=== PATIENT | female | born 1965 | race Caucasian/White ===

== ENCOUNTER 2016-11-10 10:37 | Emergency (ER) | payer MEDICAID, OTHER ==
[~2016-11-10] VITALS: Ht 157.5 cm; Wt 93.0 kg
[2016-11-10 10:39] VITALS: Ht 157.5 cm; Wt 93.0 kg
--- NOTE | 2016-11-10 11:14 | ERD ---
ER Documentation Chief Complaint Date/Time DATE: 11/10/16 TIME: 11:12 Chief Complaint epigastric pain radiating to back with nausea x 2 days HPI Patient is a 51-year-old female who presents with gradual onset, intermittent, moderate epigastric pain for 2 days. The patient states that the pain radiates to the bilateral flanks. Pain is exacerbated by eating. Associated with nausea , no vomiting, no diarrhea. No fevers, no dysuria. Patient reports being constipated and taking magnesium citrate. She had a large volume of stool, but no relief of her pain. The patient states that she is currently pain-free. ROS All systems reviewed and are negative except as per history of present illness. Medications Home Meds Active Scripts Ibuprofen* (Motrin*) 400 Mg Tab, 400 MG PO Q6 Y for PAIN, #30 TAB Prov:DESTINI CARLTON MD 11/10/16 Famotidine* (Pepcid*) 20 Mg Tablet, 20 MG PO BID for 14 Days, TAB Prov:DESTINI CARLTON MD 11/10/16 Allergies Allergies: Coded Allergies: No Known Allergy (Verified Allergy, Mild, 03/26/09) PMhx/Soc Past medical history: Hypertension Past surgical history: Tubal ligation Social history: Denies tobacco or alcohol Last menstrual period: One year. FmHx Family History: No coronary disease, No diabetes Physical Exam Vitals Vital Signs Date Time Temp Pulse Resp B/P Pulse Ox O2 Delivery O2 Flow Rate FiO2 11/10/16 10:39 98.2 88 18 162/80 96 Physical Exam Const: Alert, no acute distress Head: Atraumatic Eyes: Normal Conjunctiva, no pallor, no icterus ENT: Normal External Ears, Nose and Mouth. Mucous membranes moist Neck: Full range of motion..~ No meningismus. Resp: Clear to auscultation bilaterally, no wheezes, no rales Cardio: Regular rate and rhythm, no murmurs Abd: Soft, nondistended, mild tenderness in the epigastrium and right upper quadrant, no guarding, no rebound Skin: No petechiae or rashes Back: No midline or flank tenderness Ext: No cyanosis, or edema Neur: Awake and alert, cranial nerves II through XII intact bilaterally, strength and sensation full in 4 extremities. Psych: Normal Mood and Affect Result Diagram: 11/10/16 1135 11/10/16 1135 Results 24 hrs Laboratory Tests Test 11/10/16 11:06 11/10/16 11:35 Urine Color LT. YELLOW Urine Clarity CLEAR Urine pH 8.0 Urine Specific [place] 1.015 Urine Ketones TRACE Urine Nitrite NEGATIVE Urine Bilirubin NEGATIVE Urine Urobilinogen 0.2 E.U./dL Urine Leukocyte Esterase NEGATIVE Urine Microscopic RBC 5-10/HPF Urine Microscopic WBC 0-2/HPF Urine Epithelial Cells OCCASIONAL Urine Amorphous Phosphates MODERATE Urine Bacteria RARE Urine Hemoglobin 2+ Urine Glucose NEGATIVE% Urine Total Protein TRACE Urine Test NEGATIVE White Blood Count 12.310^3/ul Red Blood Count 4.9910^6/ul Hemoglobin 13.8g/dl Hematocrit 43.0% Mean Corpuscular Volume 86.2fl Mean Corpuscular Hemoglobin 27.7pg Mean Corpuscular Hemoglobin Concent 32.1g/dl Red Cell Distribution Width 14.0% Platelet Count 85755^3/UL Mean Platelet Volume 11.1fl Neutrophils % 87.2% Lymphocytes % 7.6% Monocytes % 4.5% Eosinophils % 0.2% Basophils % 0.2% Nucleated Red Blood Cells % 0.0/100WBC Neutrophils # 10.710^3/ul Lymphocytes # 0.910^3/ul Monocytes # 0.610^3/ul Eosinophils # 0.010^3/ul Basophils # 0.010^3/ul Nucleated Red Blood Cells # 0.010^3/ul Prothrombin Time 12.5Sec Prothrombin Time Ratio 1.0 INR International Normalized Ratio 0.93 Sodium Level 140mmol/L Potassium Level 4.0mmol/L Chloride Level 101mmol/L Carbon Dioxide Level 27mmol/L Anion Gap 16 Blood Urea Nitrogen 13mg/dl Creatinine 0.65mg/dl Glucose Level 122mg/dl Calcium Level 9.3mg/dl Total Bilirubin 0.4mg/dl Direct Bilirubin 0.00mg/dl Indirect Bilirubin 0.4mg/dl Aspartate Amino Transf (AST/SGOT) 32IU/L Alanine Aminotransferase (ALT/SGPT) 60IU/L Alkaline Phosphatase 113IU/L Total Protein 7.9g/dl Albumin 4.4g/dl Globulin 3.50g/dl Albumin/Globulin Ratio 1.25 Lipase 40U/L Procedures/MDM EKG read by me: Time 1234, rate 71 Rhythm: Normal sinus [place]: Normal Intervals: Normal ST-T waves: no ischemic changes Ectopy: No Q-waves: No Impression: No evidence of ischemia or arrhythmia MDM: Patient is a 51-year-old female who presents with 2 days of epigastric and right upper quadrant pain. Although she describes pain is radiating to the back , during exam she refers to the epigastrium and right upper quadrant only. She denies fever or vomiting. She has relatively benign labs and serial exams. There is no sign of UTI, cholecystitis or choledocholithiasis, or pancreatitis. There is no lower abdominal tenderness. No signs or symptoms concerning for aortic pathology. Ultrasound does demonstrate severe fatty infiltration of the liver. I suspect that this is the cause of the patient's pain. She may also be experiencing some gastritis. I will prescribe her famotidine and Motrin for her symptoms. I have counseled her on strict return precautions should she experience severe pain, vomiting, or fever. Otherwise, I have advised her to follow-up closely with your PMD if her symptoms not resolve completely. I have also counseled her on dietary changes and weight loss. Departure Diagnosis: Primary Impression: Hepatic steatosis Additional Impression: Abdominal pain Abdominal location: epigastric Qualified Code: R10.13 - Epigastric pain Condition: Stable DESTINI CARLTON MD Nov 10, 2016 11:14
[2016-11-10 11:24] LABS: ADD UMIC YES; URINE BILIRUBIN (Dip) NEGATIVE (NEGATIVE); URINE BLOOD (Dip) 2+ (NEGATIVE); URINE COLOR LT. YELLOW (YELLOW); URINE GLUCOSE (Dip) NEGATIVE (NEGATIVE); URINE KETONES (Dip) TRACE (NEGATIVE); URINE LEUKOCYTE ESTERASE (Dip) NEGATIVE (NEGATIVE); URINE NITRITE (Dip) NEGATIVE (NEGATIVE); URINE TOTAL PROTEIN (Dip) TRACE (NEGATIVE); URINE UROBILINOGEN (Dip) 0.2 E.U./dL (0.1-1.0)
[2016-11-10 11:37] LABS: BACTERIA,URINE RARE
[2016-11-10 11:42] LABS: ADD SCAN DIFF NO
[2016-11-10 11:48] LABS: BASOPHILS % 0.2 % (0.0-2.0); EOSINOPHILS % 0.2 % (0.0-7.0); MEAN PLATELET VOLUME 11.1 fl (7.4-10.4)
[2016-11-10 11:51] LABS: HEMOGLOBIN 13.8 g/dl (12.0-16.0); LYMPHOCYTES # 0.9 10^3/ul (0.8-2.9); LYMPHOCYTES % 7.6 % (15.0-51.0); MEAN CORPUSCULAR HEMOGLOBIN 27.7 pg (29.0-33.0); MEAN CORPUSCULAR HGB CONC 32.1 g/dl (32.0-37.0); MEAN CORPUSCULAR VOLUME 86.2 fl (82.0-101.0); MONOCYTE # 0.6 10^3/ul (0.3-0.9); MONOCYTES % 4.5 % (0.0-11.0); NEUTROPHIL # 10.7 10^3/ul (1.6-7.5); NEUTROPHILS % 87.2 % (39.0-77.0); PLATELET COUNT 263 10^3/UL (140-415); RED BLOOD COUNT 4.99 10^6/ul (4.20-5.40); WHITE BLOOD COUNT 12.3 10^3/ul (4.8-10.8)
[2016-11-10 11:54] LABS: INR 0.93; PROTIME 12.5 Sec (12.2-14.2)
[2016-11-10 11:55] LABS: ALBUMIN 4.4 g/dl (3.3-4.9)
[2016-11-10 11:57] LABS: CREATININE 0.65 mg/dl (0.44-1.00)
[2016-11-10 11:58] LABS: ALBUMIN/GLOBULIN RATIO 1.25; BILIRUBIN,INDIRECT 0.4 mg/dl (0-1.1); BILIRUBIN,TOTAL 0.4 mg/dl (0.2-1.3); CALCIUM 9.3 mg/dl (8.4-10.2); TOTAL PROTEIN 7.9 g/dl (6.1-8.1)
--- NOTE | 2016-11-10 12:20 | RADRPT ---
PROCEDURE: Right Upper Quadrant Ultrasound. CLINICAL INDICATION: Abdominal Pain TECHNIQUE: Multiple real-time images were acquired of the patient's right upper quadrant abdomen a nd retroperitoneum utilizing a high resolution transducer. COMPARISON: None FINDINGS: The liver measures 15.9 cm, and demonstrates diffusely increased echogenicity. The main portal vein is patent with proper directional flow. There is no intrahepatic biliary ductal dilatation. The extr ahepatic common bile duct measures 4 mm. The gallbladder is without stones, wall thickening, or pericholecystic fluid. The visualized pancreas is unremarkable. The right kidney measures 10.8 x 5.6 x 4.4 cm and demonstrates normal echotexture. There is no right renal calculus or hydronephrosis. The visualized abdominal aorta and IVC are grossly unremarkable. IMPRESSION: Severe fatty infiltration of the liver. No cholelithiasis or acute cholecystitis. Normal CBD. RPTAT: EE Physician Juliano Date Time Electronically viewed and signed by Physician Juliano on 11/10/2016 12:19 /
[2016-11-10] MEDS ORDERED: FAMO-18 PO (13:59)
[2016-11-10] MEDS ORDERED: IBUP400T22 PO (13:59)
[2016-11-10 14:06] VITALS: BP 152/68; PULSE 74; RESP 20; TEMP 98.3
== END 2016-11-10 14:07 | disposition home or self-care (01) ==
LOC: E/R 10:37
DX: K76.0 Fatty (change of) liver, not elsewhere classified (principal); I10 Essential (primary) hypertension; R40.2142 Coma scale, eyes open, spontaneous, at arrival to emergency department; R40.2252 Coma scale, best verbal response, oriented, at arrival to emergency department; R40.2362 Coma scale, best motor response, obeys commands, at arrival to emergency department
CPT/HCPCS: 36415; 76705; 80053; 81001; 83690; 84703; 85025; 85610; 93005; Z7502; 81003

== ENCOUNTER 2016-11-18 14:13 | Emergency (ER) | payer OTHER ==
[~2016-11-18] VITALS: Wt 95.0 kg
[~2016-11-18 14:13] MED LIST: FAMO-18 PO; IBUP400T22 PO
[2016-11-18 14:22] VITALS: Wt 95.0 kg
[2016-11-18] MEDS ORDERED: SOD CHLORIDE 0.9% 1,000 ML IV STA (14:49)
[2016-11-18] MEDS ORDERED: ACETAMINOPHEN 500 MG TAB PO STA (14:49)
[2016-11-18 15:39] LABS: ADD SCAN DIFF NO
[2016-11-18 15:42] LABS: ABNORMAL IP MESSAGE 1; HEMATOCRIT 39.7 % (37.0-47.0); HEMOGLOBIN 12.7 g/dl (12.0-16.0); MEAN CORPUSCULAR HEMOGLOBIN 26.5 pg (29.0-33.0); MEAN CORPUSCULAR VOLUME 82.9 fl (82.0-101.0); MEAN PLATELET VOLUME 12.9 fl (7.4-10.4); PLATELET COUNT 124 10^3/UL (140-415); RED BLOOD COUNT 4.79 10^6/ul (4.20-5.40); RED CELL DISTRIBUTION WIDTH 14.5 % (11.5-14.5); WHITE BLOOD COUNT 10.6 10^3/ul (4.8-10.8)
--- NOTE | 2016-11-18 15:44 | RADRPT ---
PROCEDURE: XR Chest. CLINICAL INDICATION: chest pain TECHNIQUE: Single frontal view of the chest was obtained COMPARISON: 03/26/2009 FINDINGS: The heart and mediastinum are within normal limits. The lungs are clear. There is no pleural effusion or pneumothorax. RPTAT: AA IMPRESSION: No acute disease. .Dwight Restrepo MD, MD Date Time Electronically viewed and signed by .Dwight Restrepo MD, on 11/18/2016 15:44 .S/
[2016-11-18 15:46] LABS: ADD UMIC YES; URINE BILIRUBIN (Dip) 1+ (NEGATIVE); URINE BLOOD (Dip) 3+ (NEGATIVE); URINE COLOR YELLOW (YELLOW); URINE GLUCOSE (Dip) NEGATIVE (NEGATIVE); URINE KETONES (Dip) 15 (NEGATIVE); URINE LEUKOCYTE ESTERASE (Dip) NEGATIVE (NEGATIVE); URINE NITRITE (Dip) NEGATIVE (NEGATIVE); URINE TOTAL PROTEIN (Dip) 1+ (NEGATIVE); URINE UROBILINOGEN (Dip) 2.0 E.U./dL (0.1-1.0)
[2016-11-18 16:00] LABS: ALBUMIN 3.4 g/dl (3.3-4.9)
[2016-11-18 16:01] LABS: POTASSIUM 3.1 mmol/L (3.5-5.1)
[2016-11-18 16:03] LABS: ALBUMIN/GLOBULIN RATIO 0.89; BILIRUBIN,INDIRECT 0.5 mg/dl (0-1.1); BILIRUBIN,TOTAL 0.5 mg/dl (0.2-1.3); CREATININE 0.78 mg/dl (0.44-1.00); TOTAL PROTEIN 7.2 g/dl (6.1-8.1)
[2016-11-18 16:04] LABS: CALCIUM 8.9 mg/dl (8.4-10.2)
[2016-11-18 16:08] LABS: ICTOTEST NEGATIVE (NEGATIVE); URINE RBCS >50 /HPF (0)
[2016-11-18 16:09] LABS: BACTERIA,URINE FEW; SQUAMOUS EPITHELIAL CELL,UR FEW
--- NOTE | 2016-11-18 16:10 | RADRPT ---
PROCEDURE: CT Abdomen and pelvis without contrast. CLINICAL INDICATION: Abdominal pain. Fever and chills for 3 weeks. The patient complains of "hot " urine. TECHNIQUE: CT scan of the abdomen and pelvis with contrast was performed on a multidetector high-r esolution CT scan. . Coronal and sagittal reformatted images were obtained from the axial source i mages. Standard CT scan of the abdomen pelvis without contrast protocols were performed. The total exam CTDI equals 23.26 mGy and the total exam DLP equals 1363.76 mGy-cm. One or more of the following dose reduction techniques were used: - Automated exposure control. - Adjustment of the mA and/or kV according to patient size. Use of iterative reconstruction technique. 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 The urinary bladder is contracted but otherwise un remarkable. The ureters are unremarkable. The liver is normal in size without focal hepatic lesions. The gallbladder is partially contracted but otherwise unremarkable. No evidence of biliary ductal dilation. The spleen pancreas and adrenal glands are unremarkable. The stomach, small bowel, large bowel and appendix are unremarkable. There is a 6 cm pedunculated left lateral uterine leiomyoma. The uterus is otherwise unremarkable. No definite adnexal masses. There is no evidence of intra-abdominal free air, free fluid, abscesses or lymphadenopathy. There is atherosclerotic vascular disease but no evidence of aneurysm or periaortic fluid collection s. There is a small fat containing umbilical hernia but no herniated bowel or strangulation. There is degenerative changes lower thoracic and lumbar spine without acute osseous findings are os teoblastic/osteolytic lesions. The lung bases are unremarkable. There is a small anterior pericardial effusion with a maximal depth of 4 mm. IMPRESSION: 1. 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 Unremarkable ureters and urinary bladder. 2. Small fat containing umbilical hernia but no herniated hour strangulation. 3. No evidence of gastrointestinal disease. Specifically no CT evidence of appendicitis or diverti culitis. 4. Small anterior pericardial effusion with a maximal depth of 4 mm. 5. 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 A pelvic ultrasound may be helpful for furthe r evaluation if clinically indicated. RPTAT:AAJJ Osmin Aleman, Physician Date Time Electronically viewed and signed by Osmin Aleman Physician on 11/18/2016 16:09 /
[2016-11-18 16:23] LABS: LYMPHOCYTES # 0.3 10^3/ul (0.8-2.9)
[2016-11-18] MEDS ORDERED: IBUPROFEN 600 MG TAB PO ONE (16:30)
--- NOTE | 2016-11-18 17:08 | RADRPT ---
PROCEDURE: US Abdomen (right upper quadrant). CLINICAL INDICATION: Abnormal liver function tests. TECHNIQUE: Multiple real-time longitudinal and transverse images of the right upper quadrant of th e abdomen were acquired utilizing a curved array transducer. Images were reviewed on a high-resoluti on PACS workstation. COMPARISON: 11/10/2016. FINDINGS: The liver is normal in size with a coarsened echotexture without focal mass or intrahepatic biliary dilatation. There is normal hepatopedal flow within the main portal vein. The gallbladder is well displayed without filling defects or wall thickening. The common bile duct measures 7.4 mm in maxim al dimension. The visualized portions of the pancreas are unremarkable with obscuration of the tail of the pancreas. No free fluid is identified. The right kidney measures 11.2 cm in length. There is normal echogenicity within the right kidney. There is no perinephric fluid collection. No hydronephrosis, mass, or calculus is seen. IMPRESSION: 1. Coarse echotexture in the normal size liver consistent with steatosis with some focal areas of s paring. 2. Borderline dilation of the common bile duct with an otherwise unremarkable gallbladder. RPTAT: [facility] Physician Rosalio Date Time Electronically viewed and signed by Physician Rosalio on 11/18/2016 17:08 PETE/
[2016-11-18] MEDS ORDERED: CEFTRIAXONE 1 GM INJ IVPB ONE (18:00)
[2016-11-18] MEDS ORDERED: METR500T PO (18:06)
[2016-11-18] MEDS ORDERED: CIPR500T4 PO (18:06)
--- NOTE | 2016-11-18 18:13 | ERD ---
ER Documentation Chief Complaint Date/Time DATE: 11/18/16 TIME: 18:09 Chief Complaint FEVER X 2 DAYS HPI Patient is a 51-year-old female who presents complaining of fever for 3 days. She denies cough. Denies sore throat. Denies abdominal pain. Denies any nausea or vomiting but does admit to nonbloody diarrhea as well as dysuria. She also admits to urinary frequency but denies any hematuria. She has been taking Motrin at home. ROS All systems reviewed and are negative except as per history of present illness. Medications Home Meds Active Scripts Metronidazole* (Flagyl*) 500 Mg Tablet, 500 MG PO TID for 7 Days, TAB Prov:NATHANIEL NULL PA-C 11/18/16 Ciprofloxacin Hcl* (Ciprofloxacin Hcl*) 500 Mg Tablet, 500 MG PO BID for 7 Days , TAB Prov:NATHANIEL NULL PA-C 11/18/16 Ibuprofen* (Motrin*) 400 Mg Tab, 400 MG PO Q6 Y for PAIN, #30 TAB Prov:DESTINI CARLTON MD 11/10/16 Famotidine* (Pepcid*) 20 Mg Tablet, 20 MG PO BID for 14 Days, TAB Prov:DESTINI CARLTON MD 11/10/16 Allergies Allergies: Coded Allergies: No Known Allergy (Verified Allergy, Mild, 03/26/09) PMhx/Soc History of Surgery: No Anesthesia Reaction: No Hx Neurological Disorder: No Hx Respiratory Disorders: No Hx Cardiac Disorders: No Hx Psychiatric Problems: No Hx Miscellaneous Medical Probl: No Hx Alcohol Use: No Hx Substance Use: No Hx Tobacco Use: No FmHx Family History: No diabetes Physical Exam Vitals Vital Signs Date Time Temp Pulse Resp B/P Pulse Ox O2 Delivery O2 Flow Rate FiO2 11/18/16 14:22 104.2 122 18 137/88 97 Physical Exam General: well developed, well nourished, alert, nontoxic, no distress Head: normocephalic, atraumatic Neck: Supple, nontender, no lymphadenopathy, no midline tenderness Oropharynx: no tonsilar erythema or edema, uvula midline, no exudates, no kissing tonsils, no drooling Respiratory: Clear to auscaultation bilaterally, speaks in full sentences, no use of accesory muscles or labored breathing, no rales, ronchi, or wheezing Cardiovascular: RRR, No murmurs GI: soft, non tender, non distended, negative murphys sign, negative mcburneys point tenderness, no cva tenderness bilaterally, no rebound or guarding Back: no midline tenderness, no step offs or bony abnormalities, sensation to light touch in tact Result Diagram: 11/18/16 1530 11/18/16 1530 Results 24 hrs Laboratory Tests Test 11/18/16 15:00 11/18/16 15:30 Urine Color YELLOW Urine Clarity HAZY Urine pH 6.0 Urine Specific [place] 1.015 Urine Ketones 15 Urine Nitrite NEGATIVE Urine Bilirubin 1+ Urine Ictotest NEGATIVE Urine Urobilinogen 2.0 E.U./dL Urine Leukocyte Esterase NEGATIVE Urine Microscopic RBC >50/HPF Urine Microscopic WBC 2-5/HPF Urine Squamous Epithelial Cells FEW Urine Bacteria FEW Urine Hemoglobin 3+ Urine Glucose NEGATIVE% Urine Total Protein 1+ White Blood Count 10.610^3/ul Red Blood Count 4.7910^6/ul Hemoglobin 12.7g/dl Hematocrit 39.7% Mean Corpuscular Volume 82.9fl Mean Corpuscular Hemoglobin 26.5pg Mean Corpuscular Hemoglobin Concent 32.0g/dl Red Cell Distribution Width 14.5% Platelet Count 66894^3/UL Mean Platelet Volume 12.9fl Neutrophils % 85.0% Band Neutrophils % 12.0% Lymphocytes % 3.0% Eosinophils % % Neutrophils # 9.010^3/ul Lymphocytes # 0.310^3/ul Eosinophils # 10^3/ul Sodium Level 136mmol/L Potassium Level 3.1mmol/L Chloride Level 95mmol/L Carbon Dioxide Level 26mmol/L Anion Gap 18 Blood Urea Nitrogen 18mg/dl Creatinine 0.78mg/dl Glucose Level 97mg/dl Calcium Level 8.9mg/dl Total Bilirubin 0.5mg/dl Direct Bilirubin 0.00mg/dl Indirect Bilirubin 0.5mg/dl Aspartate Amino Transf (AST/SGOT) 154IU/L Alanine Aminotransferase (ALT/SGPT) 182IU/L Alkaline Phosphatase 290IU/L Total Protein 7.2g/dl Albumin 3.4g/dl Globulin 3.80g/dl Albumin/Globulin Ratio 0.89 Lipase 66U/L Current Medications Medications (Trade) Dose Ordered Sig/Serg Route PRN Reason Start Time Stop Time Status Last Admin Dose Admin Acetaminophen 1000 mg 1,000 mg ONCE STAT PO 11/18/16 14:49 11/18/16 14:54 DC 11/18/16 15:04 Sodium Chloride (NS) 1,000 ml @ 1,000 mls/hr Q1H STAT IV 11/18/16 14:49 11/18/16 15:48 DC 11/18/16 15:04 Ibuprofen (Motrin) 600 mg ONCE ONCE PO 11/18/16 16:30 11/18/16 16:31 DC 11/18/16 16:21 Ceftriaxone Sodium (Rocephin) 1 gm ONCE ONCE IVPB 11/18/16 18:00 11/18/16 18:01 DC Procedures/MDM 51-year-old female is here with a fever of 104.2. She is also tachycardic 122. She complains of nonbloody diarrhea and some dysuria. She denies any other symptoms. She has no chest pain, no shortness of breath, no abdominal pain, no cough, no sore throat, no runny nose. Her labs revealed bandemia. Liver enzymes mildly elevated. Chest x-ray normal. Gallbladder ultrasound showed1. Coarse echotexture in the normal size liver consistent with steatosis with some focal areas of sparing.2. Borderline dilation of the common bile duct with an otherwise unremarkable gallbladder. CT of the abdomen and pelvis showed 1. 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 Unremarkable ureters and urinary bladder.2. Small fat containing umbilical hernia but no herniated hour strangulation.3. No evidence of gastrointestinal disease. Specifically no CT evidence of appendicitis or diverticulitis.4. Small anterior pericardial effusion with a maximal depth of 4 mm.5. 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 A pelvic ultrasound may be helpful for further evaluation if clinically indicated. Despite her fever she is very well-appearing and is nontoxic and non -ill-appearing. I reviewed the case with my supervising physician Dr. Herrera who also examined the patient and reviewed all the labs and imaging studies. We had a long conversation with the patient regarding her findings. Dr. Herrera recommended getting blood cultures and given the patient Rocephin here and discharging the patient with Cipro and Flagyl. Patient was also given strict return precautions and instructed to return in 24 hours for follow-up examination or sooner if her symptoms do not improve. Recommended this patient follow up with her primary care doctor within 48 hours or return to the emergency room for any worsening of symptoms. However this time I do believe there is suitable for outpatient management. I answered all their questions and they agreed with the plan and were discharged home. Departure Diagnosis: Primary Impression: Gastroenteritis Condition: Stable Patient Instructions: Fever Control (Adult) Additional Instructions: Llame al doctor MAANA y carol jarek BRIDGETT PARA DENTRO DE 1-2 DOUGLASS.Dgale a la secretaria que nosotros le instruimos hacer esta bridgett.Avise o llame si [place] condicin se empeora antes de la bridgett. Regresa aqui si peor o no mejor. Regrese a estas instalaciones MAANA para repetirle el examen.Regrese antes si [place] condicin se empeora. NATHANIEL NULL PA-C November 18, 2016 18:13
[2016-11-18 18:52] VITALS: BP 102/59; PULSE 83; RESP 18; TEMP 98.8
== END 2016-11-18 18:53 | disposition home or self-care (01) ==
LOC: FTE 14:13
DX: K52.9 Noninfective gastroenteritis and colitis, unspecified (principal); R07.9 Chest pain, unspecified
CPT/HCPCS: 71010; 74176; 76705; 80053; 81001; 83690; 85025; 87040; 93005; J0696; J7030; Z7610; 36415; 81003; 96374

== ENCOUNTER 2016-12-19 15:44 | Inpatient (IN) | payer OTHER, MEDICAID ==
[~2016-12-19] VITALS: Ht 152.4 cm; Wt 79.0 kg
[~2016-12-19 15:44] MED LIST changes: +CIPR500T4 PO; -FAMO-18 PO; +FAMO-96 PO; +METR500T PO
[2016-12-19 15:46] VITALS: Ht 152.4 cm; Wt 79.0 kg
[2016-12-19] MEDS ORDERED: morphine 4 MG/ML VIAL IV STA (18:44)
[2016-12-19 18:51] LABS: ADD UMIC YES; UR BILIRUBIN (Dip) NEGATIVE (NEGATIVE); UR BLOOD (Dip) 3+ (NEGATIVE); UR CLARITY CLEAR (CLEAR); UR COLOR YELLOW (YELLOW); UR GLUCOSE (Dip) NEGATIVE (NEGATIVE); UR KETONES (Dip) NEGATIVE (NEGATIVE); UR LEUKOCYTE ESTERASE (Dip) NEGATIVE (NEGATIVE); UR NITRITE (Dip) NEGATIVE (NEGATIVE); UR TOTAL PROTEIN (Dip) 1+ (NEGATIVE); UR UROBILINOGEN (Dip) 0.2 E.U./dL (0.1-1.0)
[2016-12-19] MEDS ORDERED: ENOXAPARIN 80 MG/0.8 ML SYG SC SCH (19:00)
--- NOTE | 2016-12-19 19:03 | ERA ---
ER Documentation Chief Complaint Date/Time DATE: 12/19/16 TIME: 18:46 Chief Complaint ap, x 1 mos was called by pmd for abnormal mri? HPI 51-year-old female with a history of hypertension sent by her primary care doctor for admission for findings on CT abdomen and pelvis done yesterday. Patient states that she has had right upper quadrant and right flank pain for about 1 month with no associated nausea or vomiting. She has noted a 25 pound weight loss with night sweats chills. She presented to the ER about 1 month ago for these symptoms and was diagnosed with possible gastroenteritis. Since then her symptoms have not improved. She complains of shortness of breath at rest and with exertion. She also has intermittent right-sided chest pain that started about 2 days ago. Yesterday she had a CT abdomen and pelvis with and without contrast that showed extensive portal vein thromboses and right hepatic vein thromboses, multiple low-density lesions in the liver, pulmonary nodules, and a soft tissue mass in the uterus. ROS All systems reviewed and are negative except as per history of present illness. Medications Home Meds Discontinued Scripts Metronidazole* (Flagyl*) 500 Mg Tablet, 500 MG PO TID for 7 Days, TAB Prov:NATHANIEL NULL PA-C 11/18/16 Ciprofloxacin Hcl* (Ciprofloxacin Hcl*) 500 Mg Tablet, 500 MG PO BID for 7 Days , TAB Prov:NATHANIEL NULL PA-C 11/18/16 Ibuprofen* (Motrin*) 400 Mg Tab, 400 MG PO Q6 Y for PAIN, #30 TAB Prov:DESTINI CARLTON MD 11/10/16 Famotidine* (Pepcid*) 20 Mg Tablet, 20 MG PO BID for 14 Days, TAB Prov:DESTINI CARLTON MD 11/10/16 Allergies Allergies: Coded Allergies: No Known Allergy (Verified , 12/19/16) PMhx/Soc History of Surgery: No Anesthesia Reaction: No Hx Neurological Disorder: No Hx Respiratory Disorders: No Hx Cardiac Disorders: Yes (Hypertension) Hx Psychiatric Problems: No Hx Miscellaneous Medical Probl: Yes (Postmenopausal) Hx Alcohol Use: No Hx Substance Use: No Hx Tobacco Use: No FmHx Family History: diabetes, other (No known cancer in the family) Physical Exam Vitals Vital Signs Date Time Temp Pulse Resp B/P Pulse Ox O2 Delivery O2 Flow Rate FiO2 12/19/16 19:00 98.3 62 16 124/64 99 Room Air 12/19/16 15:46 98.1 60 18 127/60 99 Physical Exam Const: Laying comfortably in bed, no apparent distress Head: Atraumatic Eyes: Normal Conjunctiva ENT: Normal External Ears, Nose and Mouth. Neck: Full range of motion..~ No meningismus. Resp: Clear to auscultation bilaterally Cardio: Regular rate and rhythm, no murmurs Abd: Soft, mild tenderness to palpation in the right upper quadrant without any rebound or guarding, no palpable hematomegaly, non distended. No masses. Normal bowel sounds Skin: No petechiae or rashes Back: No midline or flank tenderness Ext: No cyanosis, or edema Neur: Awake and alert Psych: Normal Mood and Affect Result Diagram: 12/19/16190412/19/161904 Results 24 hrs Laboratory Tests Test 12/19/16 18:27 12/19/16 19:05 Urine Color YELLOW Urine Clarity CLEAR Urine pH 5.5 Urine Specific [place] 1.010 Urine Ketones NEGATIVE Urine Nitrite NEGATIVE Urine Bilirubin NEGATIVE Urine Urobilinogen 0.2 E.U./dL Urine Leukocyte Esterase NEGATIVE Urine Microscopic RBC 2-5/HPF Urine Microscopic WBC 2-5/HPF Urine Squamous Epithelial Cells MANY Urine Bacteria FEW Urine Hemoglobin 3+ Urine Glucose NEGATIVE% Urine Total Protein 1+ White Blood Count 15.910^3/ul Red Blood Count 3.4210^6/ul Hemoglobin 9.0g/dl Hematocrit 27.8% Mean Corpuscular Volume 81.3fl Mean Corpuscular Hemoglobin 26.3pg Mean Corpuscular Hemoglobin Concent 32.4g/dl Red Cell Distribution Width 16.0% Platelet Count 81536^3/UL Mean Platelet Volume 11.1fl Neutrophils % 79.4% Lymphocytes % 10.7% Monocytes % 7.5% Eosinophils % 0.6% Basophils % 0.3% Nucleated Red Blood Cells % 0.0/100WBC Neutrophils # 12.610^3/ul Lymphocytes # 1.710^3/ul Monocytes # 1.210^3/ul Eosinophils # 0.110^3/ul Basophils # 0.110^3/ul Nucleated Red Blood Cells # 0.010^3/ul Prothrombin Time 15.6Sec Prothrombin Time Ratio 1.2 INR International Normalized Ratio 1.23 Activated Partial Thromboplast Time 38.5Sec Sodium Level 133mmol/L Potassium Level 4.4mmol/L Chloride Level 100mmol/L Carbon Dioxide Level 22mmol/L Anion Gap 15 Blood Urea Nitrogen 12mg/dl Creatinine 0.91mg/dl Glucose Level 102mg/dl Calcium Level 9.0mg/dl Total Bilirubin 0.4mg/dl Direct Bilirubin 0.00mg/dl Indirect Bilirubin 0.4mg/dl Aspartate Amino Transf (AST/SGOT) 172IU/L Alanine Aminotransferase (ALT/SGPT) 109IU/L Alkaline Phosphatase 373IU/L Troponin I < 0.012ng/ml Total Protein 7.7g/dl Albumin 4.0g/dl Globulin 3.70g/dl Albumin/Globulin Ratio 1.08 Lipase 81U/L Current Medications Medications (Trade) Dose Ordered Sig/Serg Route PRN Reason Start Time Stop Time Status Last Admin Dose Admin Morphine Sulfate (morphine) 4 mg ONCE STAT IV 12/19/16 18:44 12/19/16 18:46 DC 12/19/16 19:32 Enoxaparin Sodium (Lovenox) 80 mg ONCE SC 12/19/16 19:00 12/19/16 19:33 IV Flush 10 ml 10 ml STK-MED ONCE .ROUTE 12/19/16 19:47 12/19/16 19:48 DC 12/19/16 20:02 Sodium Chloride 100 ml @ ud STK-MED ONCE .ROUTE 12/19/16 19:47 12/19/16 19:48 DC 12/19/16 20:02 Iohexol 100 ml @ ud STK-MED ONCE .ROUTE 12/19/16 19:47 12/19/16 19:48 DC 12/19/16 20:02 Sodium Chloride (NS) 1,000 ml @ 1,000 mls/hr Q1H STAT IV 12/19/16 21:21 12/19/16 22:20 Azithromycin 500 mg 500 mg ONCE STAT PO 12/19/16 21:21 12/19/16 21:22 DC Ceftriaxone Sodium (Rocephin) 50 ml @ 100 mls/hr ONCE STAT IVPB 12/19/16 21:21 12/19/16 21:50 Procedures/MDM EKG: Rate/Rhythm: Sinus tachycardia at 10 7 bpm QRS, ST, T-waves: No changes consistent w/ acute ischemia Impression: No evidence of ischemia or arrhythmia CTA chest: IMPRESSION: 1. There is no evidence of pulmonary embolization. The other cardiovascular structures are unremarkable except for the presence of a small anterior pericardial effusion. 2. A 1.2 cm pleural based noncalcified nodule is seen at the lateral left lower lobe. This could be inflammatory or neoplastic. 3. Focal alveolar infiltrate seen within the superior segment of the right lower lobe laterally and a second focal nodular infiltrate is seen more inferiorly within the right lower lobe adjacent to the major fissure measuring 1.8 cm in diameter. No effusion or adenopathy is evident. 4. Fat containing Bochdalek hernia seen at the posterior medial left lung base. 5. Mild degenerative spine changes are noted. Chest x-ray: IMPRESSION: 1. Small focal infiltrate in the inferior right upper lobe with a patchy infiltrate in the right lower lobe. 2. Otherwise, no significant abnormalities are identified. Labs: CBC shows leukocytosis, anemia, thrombocytosis CMP shows elevated liver enzymes MDM Patient is presenting with weight loss, night sweats, and abdominal pain with CT showing multiple pulmonary nodules, with possible infiltrates, and hepatic and portal vein thromboses. She is hemodynamically stable and afebrile. I suspect likely occult cancer with metastatic disease. Given her leukocytosis and infiltrates on x-ray, treatment for community-acquired pneumonia was started. There is no evidence of sepsis. CTPA was done and did not show pulmonary embolism. I have a low suspicion for ACS. Lovenox 1 mg/kg was given subcu. Patient is hemodynamically stable but will need admission for further anticoagulation and further workup for malignancy. Critical Care Time: 35 minutes Treatments/Evaluations: Close monitoring and treatment of unstable vital signs, cardiorespiratory, and neurologic status, while maintaining tight balance of fluid, respiratory, and cardiac interventions. This time includes discussing the case with the patient and the patients family. This time does not include all procedures stated elsewhere in this record. This time also includes reviewing old records, labs and radiological studies. This time includes examining and re-examining the patient. Additionally, this time also includes arranging care with admitting and consulting physicians. Accepting Care Team: Current data and ongoing care discussed. Time: Time of admission Primary Provider: Yoly Consulting: none Outstanding Data: none Departure Diagnosis: Primary Impression: Hepatic vein thrombosis Additional Impressions: Portal vein thrombosis Transaminitis Anemia Qualified Code: D64.89 - Anemia due to other cause, not classified Leukocytosis Qualified Code: D72.829 - Leukocytosis, unspecified type Pneumonia, community acquired Pulmonary nodules Uterine mass Condition: Serious BREE TREJO MD Dec 19, 2016 19:03
[2016-12-19 19:06] LABS: UR BACTERIA FEW; UR SQUAMOUS EPITHELIAL CELL MANY
[2016-12-19 19:11] LABS: ADD SCAN DIFF NO
[2016-12-19 19:18] LABS: BASOPHIL # 0.1 10^3/ul (0.0-0.1); BASOPHILS % 0.3 % (0.0-2.0); EOSINOPHILS # 0.1 10^3/ul (0.0-0.5); EOSINOPHILS % 0.6 % (0.0-7.0); HEMATOCRIT 27.8 % (37.0-47.0); LYMPHOCYTES # 1.7 10^3/ul (0.8-2.9); LYMPHOCYTES % 10.7 % (15.0-51.0); MEAN CORPUSCULAR HEMOGLOBIN 26.3 pg (29.0-33.0); MEAN CORPUSCULAR HGB CONC 32.4 g/dl (32.0-37.0); MEAN CORPUSCULAR VOLUME 81.3 fl (82.0-101.0); MEAN PLATELET VOLUME 11.1 fl (7.4-10.4); MONOCYTE # 1.2 10^3/ul (0.3-0.9); MONOCYTES % 7.5 % (0.0-11.0); NEUTROPHIL # 12.6 10^3/ul (1.6-7.5); NEUTROPHILS % 79.4 % (39.0-77.0); PLATELET COUNT 458 10^3/UL (140-415); RED BLOOD COUNT 3.42 10^6/ul (4.20-5.40); WHITE BLOOD COUNT 15.9 10^3/ul (4.8-10.8)
[2016-12-19 19:33] LABS: INR 1.23; PROTIME 15.6 Sec (12.2-14.2); PT RATIO 1.2
[2016-12-19 19:34] LABS: PARTIAL THROMBOPLASTIN TIME 38.5 Sec (25.0-35.0)
[2016-12-19 19:36] LABS: ALANINE AMINOTRANSFERASE 109 IU/L (13-69); ALBUMIN/GLOBULIN RATIO 1.08; ALKALINE PHOSPHATASE 373 IU/L (42-121); ANION GAP 15 (8-16); ASPARTATE AMINO TRANSFERASE 172 IU/L (15-46); BILIRUBIN,INDIRECT 0.4 mg/dl (0-1.1); BILIRUBIN,TOTAL 0.4 mg/dl (0.2-1.3); BLOOD UREA NITROGEN 12 mg/dl (7-20); CARBON DIOXIDE 22 mmol/L (21-31); CHLORIDE 100 mmol/L (97-110); CREATININE 0.91 mg/dl (0.44-1.00); GLUCOSE 102 mg/dl (70-220); POTASSIUM 4.4 mmol/L (3.5-5.1); SODIUM 133 mmol/L (135-144); TOTAL PROTEIN 7.7 g/dl (6.1-8.1)
[2016-12-19 19:47] LABS: TROPONIN-I < 0.012 ng/ml (0.00-0.12)
[2016-12-19] MEDS ORDERED: IOHEXOL 100 ML ONE (19:47)
[2016-12-19] MEDS ORDERED: SOD CHLORIDE 0.9% 100 ML ONE (19:47)
--- NOTE | 2016-12-19 20:08 | RADRPT ---
PROCEDURE: XR Chest. CLINICAL INDICATION: Abdominal Pain TECHNIQUE: Single frontal view of the chest was obtained COMPARISON: None FINDINGS: The heart and mediastinum are within normal limits. There is a small focal infiltrate in the inferior aspect of the right upper lobe. A patchy infiltra te is also seen in the right lower lobe. The lungs are otherwise clear. There is no pleural effusion or pneumothorax. The bones and soft tissue show no acute change. IMPRESSION: 1. Small focal infiltrate in the inferior right upper lobe with a patchy infiltrate in the right lo wer lobe. 2. Otherwise, no significant abnormalities are identified. RPTAT:AAJJ Physician Carrie Date Time Electronically viewed and signed by Physician Carrie on 12/19/2016 20:08 FARIBA/
--- NOTE | 2016-12-19 20:57 | RADRPT ---
PROCEDURE: CT Pulmonary Angiogram CLINICAL INDICATION: Chest pain rule out PE TECHNIQUE: Volumetric acquisition of the thorax was performed following the intravenous administra tion of contrast with the bolus of contrast time to maximize pulmonary artery opacification. One or more of the following dose reduction techniques were used: - Automated exposure control. - Adjustment of the mA and/or kV according to patient size. - Use of iterative reconstruction technique. Radiation Dose: CTDI = 60.67 mGy; DLP = 674.28 mGy-cm. COMPARISON: None. FINDINGS: Pulmonary Arteries: There is no intrinsic filling defect seen within the pulmonary arteries to sugge st pulmonary embolization. Other cardiovascular structures: The heart is normal in size. There is a small pericardial effusion primarily seen anteriorly. The aorta is intact and normal in caliber and the brachial cephalic ves sels appear patent. Lung alvarez: There is a focus of alveolar infiltrate within the superior segment of the right lower lobe laterally. There is a small focus of nodular infiltrate seen more inferiorly within the right lower lobe adjacent to the major fissure measuring approximately 1.8 cm in diameter. There is a 1.2 cm pleural based nodule within the lateral left lower lobe. The pleural spaces: No effusion or pneumothorax is identified. Lymph nodes: No pathologically enlarged nodes are evident. Thyroid: Unremarkable. Superior abdominal structures: No significant abnormality is evident. Osseous structures: Mild degenerative endplate changes are seen to the spine. Soft tissues: There is a fat containing Bochdalek hernia at the posterior medial left lung base. IMPRESSION: 1. There is no evidence of pulmonary embolization. The other cardiovascular structures are unremar kable except for the presence of a small anterior pericardial effusion. 2. A 1.2 cm pleural based noncalcified nodule is seen at the lateral left lower lobe. This could be inflammatory or neoplastic. 3. Focal alveolar infiltrate seen within the superior segment of the right lower lobe laterally and a second focal nodular infiltrate is seen more inferiorly within the right lower lobe adjacent to t he major fissure measuring 1.8 cm in diameter. No effusion or adenopathy is evident. 4. Fat containing Bochdalek hernia seen at the posterior medial left lung base. 5. Mild degenerative spine changes are noted. Findings of left posterolateral pleural based 1.2 cm nodule in left lower lobe inflammatory versus n eoplastic were telephoned by Magdaleno Ridley MD to Dr. Comer on 12/19/2016 at 2050 hours. Candy Ridley Physician Date Time Electronically viewed and signed by Candy Ridley Physician on 12/19/2016 20:57 /
[2016-12-19] MEDS ORDERED: SOD CHLORIDE 0.9% 1,000 ML IV STA (21:21)
[2016-12-19] MEDS ORDERED: CEFTRIAXONE 1 GM/50 ML (PMX) 50 ML IVPB STA (21:21)
[2016-12-19] MEDS ORDERED: AZITHROMYCIN 250 MG TAB PO STA (21:21)
[2016-12-19] MEDS ORDERED: ONDANSETRON 4 MG INJ IV PRN (22:00)
[2016-12-20] MEDS: ACETAMINOPHEN 325 MG TAB PO PRN ×2 (03:12→13:46)
[2016-12-20] MEDS ORDERED: SOD CHLORIDE 0.9% 500 ML IV ONE (03:30)
[2016-12-20] MEDS: DEXTROSE 5%-0.45% NACL 1,000 ML IV SCH ×3 (05:07→23:37)
[2016-12-20] MEDS ORDERED: NACL 0.9% 3 ML SYG IV SCH (07:30)
[2016-12-20] MEDS ORDERED: ALBUTEROL/IPRATROPIUM (NEB) 3 ML AMP HHN PRN (07:30)
[2016-12-20] MEDS: ENOXAPARIN 80 MG/0.8 ML SYG SC SCH ×2 (08:19→21:23)
[2016-12-20 10:15] LABS: ADD SCAN DIFF NO
[2016-12-20 10:38] LABS: BASOPHILS % 0.3 % (0.0-2.0); EOSINOPHILS # 0.1 10^3/ul (0.0-0.5); EOSINOPHILS % 0.4 % (0.0-7.0); HEMATOCRIT 27.1 % (37.0-47.0); HEMOGLOBIN 8.5 g/dl (12.0-16.0); LYMPHOCYTES # 1.2 10^3/ul (0.8-2.9); MEAN CORPUSCULAR HEMOGLOBIN 25.8 pg (29.0-33.0); MEAN CORPUSCULAR HGB CONC 31.4 g/dl (32.0-37.0); MEAN CORPUSCULAR VOLUME 82.1 fl (82.0-101.0); MEAN PLATELET VOLUME 11.2 fl (7.4-10.4); MONOCYTE # 0.7 10^3/ul (0.3-0.9); MONOCYTES % 4.7 % (0.0-11.0); NEUTROPHIL # 13.3 10^3/ul (1.6-7.5); PLATELET COUNT 426 10^3/UL (140-415); RED CELL DISTRIBUTION WIDTH 16.5 % (11.5-14.5); WHITE BLOOD COUNT 15.6 10^3/ul (4.8-10.8)
[2016-12-20 10:46] LABS: ALBUMIN 3.3 g/dl (3.3-4.9); ALBUMIN/GLOBULIN RATIO 0.86; BILIRUBIN,INDIRECT 0.4 mg/dl (0-1.1); BILIRUBIN,TOTAL 0.4 mg/dl (0.2-1.3); CALCIUM 8.6 mg/dl (8.4-10.2); CREATININE 0.67 mg/dl (0.44-1.00); MAGNESIUM 1.9 mg/dl (1.7-2.5); PHOSPHORUS 3.6 mg/dl (2.5-4.9); POTASSIUM 3.8 mmol/L (3.5-5.1); TOTAL PROTEIN 7.1 g/dl (6.1-8.1)
[2016-12-20 11:50] LABS: IRON 28 ug/dl (35-150)
[2016-12-20 11:59] LABS: TOTAL IRON BINDING CAPACITY 218 ug/dl (241-421)
[2016-12-20 12:23] LABS: CARCINOEMBRYONIC ANTIGEN 1.5 ng/ml (0.0-5.0)
--- NOTE | 2016-12-20 12:24 | CONS ---
DATE OF ADMISSION: 12/19/2016 DATE OF CONSULTATION: 12/20/2016 TYPE OF CONSULTATION: Medical Oncology REQUESTING PHYSICIAN: Ruddy Frederick MD REASON FOR CONSULTATION: Probable metastatic carcinoma. Dear Dr. Frederick: Thank you very much for asking me to see this very interesting and pleasant patient in oncologic con sultation. HISTORY OF PRESENT ILLNESS: As you know, Ms. Burks is a 51-year-old postmenopausal female who is presently in the emergency room at [facility] awaiting admission to the hospital. The patient has been experiencing abdominal pain now for over 1 month. The pain is mostly in the ri ght upper quadrant. The patient has had a recent CT scan of the abdomen and pelvis with and without contrast. This was done on 12/18/2016 at [facility]. This revealed exte nsive portal vein thrombosis and right hepatic vein thrombosis. There were also "numerous low-densi ty lesions scattered throughout the liver." It was felt that these might represent multiple hepatic abscesses. Liver metastases could not be excluded. Interestingly, there was no mesenteric or retr operitoneal lymphadenopathy. There was a soft tissue mass noted in the left aspect of the uterus. There were ill-defined pulmonary nodules at the lower lobes. As noted, the patient has been experiencing pain for over 1 month. The patient has had at least 2 v isits to the [facility] emergency room. The first was on 11/10/2016 and the secon d on 11/18/2016. The patient's abdominal pain has been increasing. As noted, it is mostly in the right upper quadran t. It is worsened with deep inspiration. It does not radiate to shoulder or to the back. The brooklynn ent has had some "indigestion" but no nausea or vomiting. She has not noticed any change in bowel h abits. There has been no melena or hematochezia. The patient has had fevers and night sweats. She is unable to tell me how high the temperature has been. The patient does state that she has lost 25 pounds in the past month. As noted, the patient has not had any melena or hematochezia. She has not had hematemesis. She has not had any spotting, vaginal bleeding or discharge. As mentioned, the patient was seen in the emergency room here on 11/10/2016. At that time, an ultra sound of gallbladder showed fatty infiltration of the liver. CBC was done which was normal. Hemogl obin at that time was 13.8 with an MCV of 86. Comprehensive metabolic panel was normal including al l liver functions. Total protein at that time was 7.9 and albumin was 4.4. The patient was seen again in the emergency room on 11/18/2016. At that time, the patient had a tem perature of 104.2 on presentation to the emergency room. Again, chemistry panel was done and this t anmol the patient had an AST of 154, ALT of 182, alkaline phosphatase of 290, total protein of 7.2, al bumin was 3.4, total bilirubin 0.5, and direct was 0. White count at that time 10,600 with 12% band s. Hemoglobin was 12.7, hematocrit 39.7, with MCV of 82.9, and platelet count 124,000. At that jamison e, another ultrasound of the gallbladder was done. This again showed fatty liver. There was border line dilatation of the common bile duct. A CT scan of the abdomen and pelvis was also done. This s howed a horseshoe kidney. The liver was felt to be normal in size without lesions. The spleen, borja creas and adrenal glands were normal. There was a 6 cm pedunculated lesion in the left lateral uter us. There were no adnexal masses. This was called a leiomyoma, although I am not clear how this di agnosis could be made on x-ray alone. The lung bases were felt to be unremarkable. There was a sma ll pericardial effusion noted. The patient now on admission to the emergency room has a white count of 15,600 with an absolute neut rophil count of 13,300, hemoglobin is now 8.5, hematocrit 27.1, MCV 82, MCH 25.8, MCHC 31.4, RDW 16. 5, and platelet count 426,000. Comprehensive metabolic panel reveals an AST of 190, ALT of 119, alk kim phosphatase of 338, total bilirubin 0.4 with a direct of 0. Albumin is 3.3, total protein 7.1 , lipase is 81. A CT angiogram of the chest was done. This did not show any evidence of pulmonary emboli. There wa s a focus of alveolar infiltrate in the superior segment of the right lower lobe laterally. A small focus of nodular infiltrate seen inferiorly with the right lower lobe adjacent to the major fissure measuring 1.8 cm and a 1.2 cm pleural-based nodule within the lateral left lower lobe. There was n o effusion or pneumothorax identified. No mention of a pericardial effusion. There were no osseous lesions either. During her stay in the emergency room, the patient's temperature has gone as high as 103 with a puls e rate of 120, blood pressure has remained normal. PAST MEDICAL HISTORY: The patient's past history is unremarkable other than those things mentioned above. She does have a history of hypertension for which she has been taking amlodipine. The other medications at home have included omeprazole, metronidazole, ciprofloxacin, ibuprofen. These have since been discontinued. ALLERGIES: THE PATIENT HAS NO KNOWN ALLERGIES. 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 She has had no postmenopausal bleeding. The patient is 4, para 4, AB 0. She has not take n any hormone replacement therapy. The patient states she had a mammogram last in June and this was normal. She has never required a breast biopsy. She has not had colonoscopy. SOCIAL HISTORY: The patient was born in [place]. She has been in the [place] since 16 years o f age. 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 S he has not knowingly been exposed to industrial toxins or ionizing radiation. She does not smoke or use other tobacco products. No alcohol. FAMILY HISTORY: Remarkable in that her father has had diabetes. Both parents are living. She has 3 sisters and 2 brothers who are all in good health. Four children who are in good health. PHYSICAL EXAMINATION GENERAL: At this time reveals a well-developed, obese female who seems to be in some distress. VITAL SIGNS: Temperature 98.2 at this time. Pulse 120 per minute, respirations 22, blood pressure 113/67, and pulse oximetry is 100% on room air. SKIN: No ecchymosis, no petechiae or rashes. HEENT: Normocephalic. No evidence of trauma. The pupils are equal, round, react to light and acco mmodation. Sclerae nonicteric. Oral mucosa is moist without lesions. Tongue is well papillated. There is no gingival hyperplasia, no hypertrophy of Waldeyer's ring, no mucosal telangiectasias. NECK: Supple, no jugular venous distention or thyroid enlargement. No carotid bruits. CHEST: Clear to auscultation and percussion. No rhonchi, wheezes, rales or rubs. There is no pain on percussion of the spine, sternum, clavicles or ribs. BREASTS: Symmetrical. No masses, skin retraction, or nipple inversion. HEART: Sinus tachycardia. No S3, S4 or murmurs. No rubs. ABDOMEN: Obese. There is tenderness on palpation of the right upper quadrant and epigastrium. No distinct mass can be felt. There is no ascites. Bowel sounds are active. EXTREMITIES: Good range of motion, no clubbing, edema or cyanosis. No palpable cords or Homans sig n. NEUROLOGIC: Normal. DISCUSSION: This patient has a 1 month history of abdominal pain. This has been associated with a 25-pound weight loss as well as fevers and night sweats. The patient has had now 3 visits to the emergency room. During that time, the patient has gone from a normal CBC to a leukocytosis. Her hemoglobin has also dropped in 6 weeks from 13.8 to 8.8. This was without any evidence of gastrointestinal blood loss or hemolysis. Liver functions have become abnormal as well. A CT scan of the abdomen and pelvis done 1 month ago demonstrated no hepatic abnormalities. There was a 6 cm pedunculated lesion extending from the left lateral aspect of the uterus. That CT scan was done without contrast. The CT scan done 2 days mark or to admission as an outpatient; however, now shows extensive portal vein thrombosis as well as pos sible hepatic vein thrombosis. There are also numerous low-attenuation lesions scattered throughout the liver. It was unclear whether these represent metastases or multiple hepatic abscesses. As no ryley, the patient has had spiking temperatures and leukocytosis. Certainly one must be concerned about a metastatic malignancy, but also cannot rule out an infection . At this time, I have requested iron studies to include iron, iron-binding capacity, and a ferritin. We will also obtain a CEA, CA 27-29 and CA 125. We will also obtain immunofixation as well as yamil titative immunoglobulins. We will request an ultrasound of the liver as well. Ultimately, it will likely be necessary to obtain a biopsy of the liver if this does appear to be a malignancy. It is somewhat unusual in that there is no evidence of retroperitoneal or mesenteric lymphadenopathy , nor has there been any evidence of hilar or mediastinal adenopathy on CT scans. I will review the peripheral slide as well. Once again, thank you very much for the opportunity of participating in the medical care of this lamont y interesting and pleasant patient. I will be happy to follow this patient with you and assist in h er oncologic evaluation and follow up as necessary. Dictated By: ECTOR GHOSH MD SR/DAR Conf#: [id number] DID#: [id number]
--- NOTE | 2016-12-20 12:53 | HP ---
Date/Time of Note Date/Time of Note DATE: 12/20/16 TIME: 12:52 Assessment/Plan VTE Prophylaxis VTE Prophylaxis Intervention: SCD's Assessment/Plan Assessment/Plan IMPRESSION 1. Likely metastatic cancer 2. Portal and Hepatic vein thrombosis 3. Abd bloating and RUQ pain: likely 2/2 above, liver pathology 4. Leukocytosis 5 .Mild Hyponatremia 6. Hx of HTN: BP within goal PLAN Anti-coagulation, treatment dose Oncology consult pain mgmt infectious w/u correct electrolytes as needed HPI/ROS Admit Date/Time Admit Date/Time Hx of Present Illness This is a 51-year-old female with a history of hypertension sent by her primary care doctor for admission for findings on CT abdomen and pelvis done yesterday. Patient states that she has been experiencing abd bloating and right upper quadrant and right flank pain for about 1 month with no associated nausea or vomiting. She has noted a 25 pound weight loss with night sweats and chills. She presented to the ER about 1 month ago for these symptoms and was diagnosed with possible gastroenteritis. Since then her symptoms have not improved. She complains of shortness of breath at rest and with exertion. She also has intermittent right-sided chest pain that started about 2 days ago. Yesterday she had a CT abdomen and pelvis with and without contrast that showed extensive portal vein thromboses and right hepatic vein thromboses, multiple low-density lesions in the liver, pulmonary nodules, and a soft tissue mass in the uterus. . PMH/Family/Social Social History Smoking Status: Never smoker Exam/Review of Systems Vital Signs Vitals Vital Signs Date Time Temp Pulse Resp B/P Pulse Ox O2 Delivery O2 Flow Rate FiO2 12/20/16 08:41 120 22 113/67 100 Room Air 12/20/16 07:35 98.2 Exam Constitutional: alert, oriented, well developed Head: atraumatic, normocephalic Neck: non-tender, supple Respiratory: clear to auscultation Cardiovascular: nl pulses, regular rate and rhythm Gastrointestinal: soft, tender Extremities: normal pulses Labs Result Diagram: 12/20/16 1000 12/20/16 1000 Medications Medications Current Medications Dextrose/Sodium Chloride (D5-1/2ns) 1,000 ml @ 100 mls/hr Q10H IV Last administered on 12/20/16t 05:07; Admin Dose 100 MLS/HR; Start 12/20/16 at 03:30 Ondansetron HCl (Zofran Inj) 4 mg Q6H PRN IV NAUSEA AND/OR VOMITING; Start 12/20 at 07:30 Acetaminophen (Tylenol Tab) 650 mg Q6H PRN PO PAIN LEVEL 1-3 OR FEVER; Start at 07:30 Morphine Sulfate (morphine) 4 mg Q4H PRN IV SEVERE PAIN LEVEL 7-10; Start at 07:30 Enoxaparin Sodium (Lovenox) 80 mg Q12 SC Last administered on 12/20/16 08:19; Admin Dose 80 MG; Start 12/20/16 at 09:00 DOUGIE MARTINEZ MD Dec 20, 2016 12:53
[2016-12-20 13:40] VITALS: TEMP 100.3
[2016-12-20 15:21] VITALS: BP 114/55; PULSE 105; RESP 18
--- NOTE | 2016-12-20 15:31 | CONS ---
DATE OF ADMISSION: 12/19/2016 DATE OF CONSULTATION: PULMONARY CONSULTATION REASON FOR CONSULTATION: Abnormal CT. Thank you, Dr. Kinney, for this consultation. HISTORY OF PRESENT ILLNESS: This is an unfortunate 51-year-old lady with a 1-month history of abdom inal pain, predominantly in the right upper quadrant. Recent CT of the abdomen was performed and de monstrated extensive portal vein thrombosis and right hepatic vein thrombosis, multiple lesions in t he liver and possibly in the lungs also. She had worsening pain over the past 24 hours resulting in presentation to the emergency room. No nausea, no vomiting. She did have symptoms of gastroesopha geal reflux disease. In addition to this, the patient has had significant weight loss in the last 2 months and fevers and chills over the past 24 to 48 hours. On admission, the patient was found to be febrile to 103, mildly tachycardic with a blood pressure of 138/68. Initial studies showed leuko cytosis of 15.6 and infiltrate in the right lower lobe consistent with pneumonia. PAST MEDICAL HISTORY: Includes hypertension, gastroesophageal reflux disease, history of UTI. MEDICATIONS: Per chart. ALLERGIES: NONE. SOCIAL HISTORY: Nonsmoker, no alcohol, no history of drug use. FAMILY HISTORY: Noncontributory. SYSTEMS REVIEW: A 12-point review of systems negative other than that mentioned above. PHYSICAL EXAMINATION: GENERAL: Well-nourished, well-developed lady, appears comfortable at rest, no acute distress. VITAL SIGNS: Currently temperature 100.3, pulse is 100, blood pressure 138/68, O2 saturation 96% on room air. NECK: Supple. No JVD or lymphadenopathy. CARDIAC: S1, S2, no added sounds or murmurs. CHEST: Diminished air entry both lung bases. ABDOMEN: Mildly distended, soft. EXTREMITIES: No cyanosis, clubbing, or edema. NEUROLOGIC: Generalized weakness. LABORATORY DATA: White count 15.6, hemoglobin 8.5, platelets 426. Chemistry: BUN 8, creatinine 0. 67, AST 190, ALT 119, alkaline phosphatase 338. CA-125 was 40. Quantitative immunoglobulins were w ithin normal limits. DIAGNOSTIC DATA: CT chest was performed with no evidence of pulmonary emboli. She has a 1.2 cm ple ural based noncalcified nodule, left lower lobe, focal infiltrate superior segment of the right lowe r lobe. 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 Differential bolton s include hepatic abscesses, given the patient's persistent fevers. The patient to be placed on: 1. Intravenous antibiotics. 2. Pain control. 3. DVT and GI prophylaxis. 4. Biopsy of liver when the patient is more stable. 5. Hold off for a lung biopsy at present. Dictated By: JASON GARCIA/DAR Conf#: [id number] DID#: [id number]
--- NOTE | 2016-12-20 15:42 | PN ---
DATE: 12/20/2016 This is a medical oncology progress note. The patient's peripheral blood smear has been reviewed. Red blood cell morphology is relatively normal. There is some macrocytosis noted but no hypochromas ia. There are no fragmented red blood cells. No spherocytes. There are some target cells noted. White blood cells are increased in number. The granulocytes appear relatively normal. There is mi ld to toxic granulation, but no Dohle bodies, no cytoplasmic vacuolization. There are no immature n eutrophils, no hypersegmented polys and no nucleated red blood cells. Lymphocytes are normal in num mellisa and appearance. There are no atypical or reactive lymphocytes. The platelets are increased in number and there is some spontaneous platelet clumping, but no unusual platelet forms seen. Blood cultures have been obtained. Other studies are pending as noted in my original consultation. Dictated By: ECTOR GHOSH MD, SR/NTS Conf#: [id number] DID#: [id number]
--- NOTE | 2016-12-20 15:53 | CONS ---
Date/Time of Note Date/Time of Note DATE: 12/20/16 TIME: 15:48 Assessment/Plan Assessment/Plan Chief Complaint/Hosp Course Mrs. 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 Her portal vein thrombosis appears to be acute in nature as this was not present on the November abdominal CT scan. She also has incidental finding of a non-symptomatic left posterior Bochdalek hernia. Her Anorexia and abdominal pain is likely related to the portal vein thrombosis. 1. Given the fact that her current presentation of hepatic and portal vein thrombosis is acute in nature, associated with leukocytosis and fevers, abscess in the liver cannot be ruled out. I recommend a dedicated liver protocol MRI with Eovist to better evaluate the liver and the extent of underlying disease process. Her CT scans are not good enough to evaluate the liver as it stands. Her hypercoagulable state can be 2/2 an underlying neoplastic process as yet to be determined, however, an underlying inflammatory process can also lead to this. She has never had an upper or lower endoscopy and thus this needs to be addressed to evaluate for and rule out possible metastatic disease. My review of the CT Scans did not raise any concerns, however. I don't believe that there is a relation between the liver lesions and the left adnexal mass at this time without presence of extensive peritoneal disease. 2. I agree with tumor markers evaluation as per Oncology recommendation. 3. As pertaining to the lung lesions, biopsy is a good option. 4. Pt needs to have therapeutic dose anticoagulation for her thrombosis. 5. No surgical intervention is recommended for her incidental asymptomatic Bochdalek Hernia given her current presentation. will Follow Problems: Consultation Date/Type/Reason Admit Date/Time Date of Consultation: Dec 20, 2016 Type of Consultation: Surgical Oncology Reason for Consultation Liver lesions Hx of Present Illness I had the pleasure of meeting Mrs. Burks, who is a pleasant 51 yo Female with findings of Multiple liver lesions vs abscesses, portal vein and hepatic vein thromboses. She presented to [facility] with RUQ abd pain that has been on and off for the last 1- 2 months. This was associated with a 20+ lbs weight loss. She furthermore, had subjective fevers/chills, some nausea and pain with eating. There was no radiation of the pain to the back or shoulders. No prior history of hepatitis, pancreatitis, gastritis or cholecystitis. No history of any trauma or falls. She had presented to the ED in early October and November of this year for similar pain. During those visits, she had undergone imaging evaluation which revealed : May CT: 1. 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 Unremarkable ureters and urinary bladder. 2. Small fat containing umbilical hernia but no herniated hour strangulation. 3. No evidence of gastrointestinal disease. Specifically no CT evidence of appendicitis or diverticulitis. 4. Small anterior pericardial effusion with a maximal depth of 4 mm. 5. 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 A pelvic ultrasound may be helpful for further evaluation if clinically indicated. During that admission she had elevated transaminases, associated with Fever, but was not Jaundiced. No diarrhea, no hematemesis or melena. No CP or SOB. She had a non-contrast abdominal CT at [facility] on 12/19 which reveals multiple low-density lesions in the liver as well as a large adnexal mass on the left. This was seen on the November CT, but the liver lesions were not. She also has extensive Portal vein thrombosis as well as right hepatic vein Thromboses. She had an admission CT Chest as well which revealed: 1. There is no evidence of pulmonary embolization. The other cardiovascular structures are unremarkable except for the presence of a small anterior pericardial effusion. 2. A 1.2 cm pleural based noncalcified nodule is seen at the lateral left lower lobe. This could be inflammatory or neoplastic. 3. Focal alveolar infiltrate seen within the superior segment of the right lower lobe laterally and a second focal nodular infiltrate is seen more inferiorly within the right lower lobe adjacent to the major fissure measuring 1.8 cm in diameter. No effusion or adenopathy is evident. 4. Fat containing Bochdalek hernia seen at the posterior medial left lung base. 5. Mild degenerative spine changes are noted. A 12 point ROS was unremarkable other than what is stated in the HPI Eyes: no complaints Respiratory: no complaints Cardiovascular: no complaints Gastrointestinal: other Genitourinary: no complaints Past Medical History Medical History: hypertension Past Surgical History Past Surgical Hx: no surgical history Family History Significant Family History: other (paternal uncle with stomach cancer. has four children, 2 brothers/3 sisters.) Social History Alcohol Use: none Smoking Status: Never smoker Drug Use: none Other Social History , No prior OCP use. 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 intact, nl mental status, nl speech Skin: nl turgor Lymph: nl lymph nodes Results Result Diagram: 12/20/16 1000 12/20/16 1000 Results 24 hrs Laboratory Tests Test 12/19/16 18:27 12/19/16 19:05 12/20/16 10:00 Urine Color YELLOW Urine Clarity CLEAR Urine pH 5.5 Urine Specific [place] 1.010 Urine Ketones NEGATIVE Urine Nitrite NEGATIVE Urine Bilirubin NEGATIVE Urine Urobilinogen 0.2 E.U./dL Urine Leukocyte Esterase NEGATIVE Urine Microscopic RBC 2-5 Urine Microscopic WBC 2-5 Urine Squamous Epithelial Cells MANY Urine Bacteria FEW Urine Hemoglobin 3+ H Urine Glucose NEGATIVE Urine Total Protein 1+ H White Blood Count 15.9 #H 15.6 H Red Blood Count 3.42 #L 3.30 L Hemoglobin 9.0 #L 8.5 L Hematocrit 27.8 #L 27.1 L Mean Corpuscular Volume 81.3 L 82.1 Mean Corpuscular Hemoglobin 26.3 L 25.8 L Mean Corpuscular Hemoglobin Concent 32.4 31.4 L Red Cell Distribution Width 16.0 H 16.5 H Platelet Count 458 #H 426 H Mean Platelet Volume 11.1 H 11.2 H Neutrophils % 79.4 H 85.0 H Lymphocytes % 10.7 L 8.0 L Monocytes % 7.5 4.7 Eosinophils % 0.6 0.4 Basophils % 0.3 0.3 Nucleated Red Blood Cells % 0.0 0.0 Neutrophils # 12.6 H 13.3 H Lymphocytes # 1.7 1.2 Monocytes # 1.2 H 0.7 Eosinophils # 0.1 0.1 Basophils # 0.1 0.0 Nucleated Red Blood Cells # 0.0 0.0 Prothrombin Time 15.6 #H Prothrombin Time Ratio 1.2 INR International Normalized Ratio 1.23 Activated Partial Thromboplast Time 38.5 H Sodium Level 133 L 138 Potassium Level 4.4 3.8 Chloride Level 100 106 Carbon Dioxide Level 22 22 Anion Gap 15 14 Blood Urea Nitrogen 12 8 Creatinine 0.91 0.67 Glucose Level 102 130 Calcium Level 9.0 8.6 Total Bilirubin 0.4 0.4 Direct Bilirubin 0.00 0.00 Indirect Bilirubin 0.4 0.4 Aspartate Amino Transf (AST/SGOT) 172 H 190 H Alanine Aminotransferase (ALT/SGPT) 109 H 119 H Alkaline Phosphatase 373 H 338 H Troponin I < 0.012 Total Protein 7.7 7.1 Albumin 4.0 3.3 Globulin 3.70 H 3.80 H Albumin/Globulin Ratio 1.08 0.86 Lipase 81 Phosphorus Level 3.6 Magnesium Level 1.9 Iron Level 28 L Total Iron Binding Capacity 218 L Percent Iron Saturation 13 L Ferritin Pending Carcinoembryonic Antigen 1.5 CA 125 Antigen 40.0 H Immunoglobulin A 188 Immunoglobulin G 1377 Immunoglobulin M 56 Medications Medications Current Medications Dextrose/Sodium Chloride (D5-1/2ns) 1,000 ml @ 100 mls/hr Q10H IV Last administered on 12/20/16 14:04; Admin Dose 100 MLS/HR; Start 12/20/16 at 03:30 Ondansetron HCl (Zofran Inj) 4 mg Q6H PRN IV NAUSEA AND/OR VOMITING; Start 12/20 at 07:30 Acetaminophen (Tylenol Tab) 650 mg Q6H PRN PO PAIN LEVEL 1-3 OR FEVER; Start at 07:30 Morphine Sulfate (morphine) 4 mg Q4H PRN IV SEVERE PAIN LEVEL 7-10; Start at 07:30 Enoxaparin Sodium 80 mg 80 mg Q12 SC Last administered on 12/20/16 08:19; Admin Dose 80 MG; Start 12/20/16 at 09:00 Piperacillin Sod/ Tazobactam Sod (Zosyn 3.375gm/ 100 ml (Pmx)) 100 ml @ 200 mls /hr Q6 IVPB ; Start 12/20/16 at 16:00 HAMZAH WOODARD Dec 20, 2016 15:52
[2016-12-20] MEDS ORDERED: PIPER-TAZO 3.375 GM IV (PMX) 100 ML IVPB SCH (16:00)
--- NOTE | 2016-12-20 16:17 | HP ---
DATE OF ADMISSION: 12/19/2016 VASCULAR SURGERY CONSULTATION Dear Doctors: Ms. Burks is a 51-year-old female who presented to Emergency Room at [facility] secondary to 1 month of abdominal pain, in which she had undergone evaluation with CT of the abdome n and pelvis, identifying having portal vein thrombosis and right hepatic vein thrombosis. Vascular surgery consultation was obtained for further evaluation. Upon our discussion with the patient, it seems that she has a 6.7 x 5.6 cm lobulated mass that is present in her uterus with findings of pul monary nodules. In further discussion with the patient, she has had over the past month 20 pounds o f weight loss and loss of appetite. At the moment, the patient denies shortness of breath, chest p ain, nausea, vomiting, fever or chills. She does have loss of appetite. REVIEW OF SYSTEMS: A 14-point review performed and negative except what is mentioned in the HPI. PAST MEDICAL HISTORY: Entails morbidly obese, hypertension. PAST SURGICAL HISTORY: None reported. ALLERGIES: NO KNOWN DRUG ALLERGIES. SOCIAL HISTORY: Denies tobacco, alcohol or illicit drug use. FAMILY HISTORY: Positive for diabetes and coronary artery disease. PHYSICAL EXAMINATION: GENERAL: She is alert and oriented x3, no apparent distress. HEENT: Normocephalic, atraumatic. PERRLA, EOMI. Mucosa moist. NECK: Supple. No carotid bruit. PULMONARY: Clear to auscultation bilaterally. No crackles. CARDIOVASCULAR: S1, S2 present. No murmurs. ABDOMEN: Soft upper abdomen with mild tenderness 2 to 3/10. Bowel sounds positive. Large pannus a nd truncal obesity. EXTREMITIES: Lower extremities, palpable femoral pulses, palpable pedal pulses. Motor, sensory int act. Capillary refill 2 to 3 seconds. ASSESSMENT AND PLAN: Portal vein and right hepatic vein thrombosis: It seems the patient has deve loped thrombosis that is likely related to a hypercoagulable state. The patient would require to be worked up for possible metastatic disease. We will plan to follow the patient from oncology standp oint for further workup. From a vascular surgery standpoint, would recommend for the patient to be placed on anticoagulation in order to prevent any further propagation of thrombosis. Optimize vascular status (BP meds, diet, nutrition, exercise, sugar control, weight loss, antiplatel ets and anticoagulation). Discussed findings, plan and management with the patient and her son at the bedside with a certified pole sander operator and they understand. Thank you for allowing us to partake in the care of your patient. Please call with any questions. Dictated By: RACHELL TINAJERO/DAR Conf#: [id number] DID#: [id number]
--- NOTE | 2016-12-20 17:40 | RADRPT ---
PROCEDURE: MRI pelvis. CLINICAL INDICATION: Abdominal pain and uterine mass. TECHNIQUE: Multiplanar multi echo imaging is performed to the pelvis in the axial coronal and sagi ttal planes. T1-weighted coronal, axial FSE T2-weighted FS images, sagittal T2-weighted FSE and thin -section T2-weighted coronal FSE images are performed. There is no evidence of ascites. Axial DWI and T1-weighted axial images in and out of phase were performed. Exponential apparent diffusion rony fficient axial images were performed. COMPARISON: CT scan of the abdomen pelvis 11/18/2016. FINDINGS: The MRI demonstrates a pedunculated leiomyoma measuring up to 6 cm transverse by 6.5 cm AP by 5.8 cm in height which was also identified on the prior CT scan of 11/18/2016. It measured 5.6 x 5.2 cm a t that time and is now slightly larger. The mass displaces the uterus to the right of midline and abuts the periphery of the endometrial str ipe. The mass rests superior to the left side the urinary bladder. Urinary bladder is unremarkable. The femurs are anatomically aligned within the acetabula. The psoas muscles are normal. The colon and small bowel loops are unremarkable. No enlarged inguinal or pelvic sidewall lymph nodes are identi fied. There is fecal material in the colon. The small bowel loops have a normal caliber. IMPRESSION: 1. There is been slight interval growth of the broad-based pedunculated leiomyoma since the prior C T scan of 11/18/2016 which now measures 6.1 cm transverse by 5.8 cm in height by 6.5 cm AP. 2. Obesity. 3. Otherwise, unremarkable MRI of the pelvis. RPTAT:AAJJ Physician Alex Date Time Electronically viewed and signed by Physician Alex on 12/20/2016 17:39 SUKUMAR/
--- NOTE | 2016-12-20 19:32 | RADRPT ---
PROCEDURE: US Abdomen. CLINICAL INDICATION: 51-year-old female with hepatic lesions. TECHNIQUE: Multiple real-time images were acquired of the patient's abdomen and retroperitoneum ut ilizing a high resolution transducer. COMPARISON: Abdominal sonogram 11/19/2011. FINDINGS: The head and body the pancreas are unremarkable. Liver measures 16.4 cm in length. The liver is inhomogeneous in echotexture. There is at least the s uggestion of multiple hepatic lesions throughout the liver. The main portal vein measured 1.25 cm. The gallbladder wall measures 1.35 mm. The common bile duct measures 4.9 mm. The right kidney measures 9.7 cm in length. A 1.1 cm cyst is not the superior pole of the right kid jazmin. IMPRESSION: 1. The liver is inhomogeneous and I suspect contain multiple poorly defined areas suspicious for he patic lesions. These are not identified on the prior study of 11/18/2016. No internal blood flow is demonstrated by the technologist. Hepatic abscesses could be considered. Necrotic hepatic metasta ses could have a similar appearance. A triple phase MRI study could be performed to evaluate the are as for internal enhancement in further characterization if needed. RPTAT:AAJJ Physician Alex Date Time Electronically viewed and signed by Physician Alex on 12/20/2016 19:32 SUKUMAR/
--- NOTE | 2016-12-20 19:40 | RADRPT ---
PROCEDURE: US Pelvis. CLINICAL INDICATION: Uterine mass. TECHNIQUE: Multiple sonographic images of the pelvis were obtained utilizing a transabdominal and endovaginal technique. The images were reviewed on a PACS workstation. COMPARISON: CT scan abdomen pelvis 11/18/2016. Pelvic sonogram 11/19/2016. Pelvic MRI dated 12/20. FINDINGS: The uterus is visualized and measures 8.9 cm sagittal by 4.1 cm AP by 5.80 cm transverse. A broad-ba sed pedunculated leiomyoma is arising off the left fundus of the uterus. The lesion measures proxim ally 6.6 x 5.2 x 5.3 cm. The endometrial echo complex is normal and measures 8 mm. The ovaries are n ot visualized. No free fluid is noted in the pelvis. No adnexal masses are noted. IMPRESSION: A large pedunculated mass which is most likely a leiomyoma arises off the left fundus of the uterus measuring roughly 6.6 x 5.2 x 5.3 cm. It is unchanged when compared to the pelvic MRI performed the same day. It appears slightly larger as compared to the prior CT scan of the abdomen pelvis dated 11/18/2016. Neither MRI, CT or ultrasound cannot reliably differentiate between a leiomyoma and leio myosarcoma. The latter or rare tumors. RPTAT:AAJJ Physician Alex Date Time Electronically viewed and signed by Physician Alex on 12/20/2016 19:40 SUKUMAR/
[2016-12-20 20:05] VITALS: BP 132/60; RESP 18
[2016-12-20 22:33] VITALS: BP 124/70; PULSE 78; RESP 18
[2016-12-20] MEDS: PIPER-TAZO 3.375 GM IV (PMX) 100 ML IVPB SCH (23:37)
[2016-12-20] MEDS: morphine 4 MG/ML VIAL IV PRN (23:39)
[2016-12-21 05:04] LABS: ADD SCAN DIFF NO
[2016-12-21 05:14] LABS: BASOPHIL # 0.1 10^3/ul (0.0-0.1); BASOPHILS % 0.4 % (0.0-2.0); EOSINOPHILS # 0.2 10^3/ul (0.0-0.5); EOSINOPHILS % 1.4 % (0.0-7.0); HEMATOCRIT 23.8 % (37.0-47.0); HEMOGLOBIN 7.5 g/dl (12.0-16.0); LYMPHOCYTES # 1.7 10^3/ul (0.8-2.9); LYMPHOCYTES % 10.8 % (15.0-51.0); MEAN CORPUSCULAR HEMOGLOBIN 25.7 pg (29.0-33.0); MEAN CORPUSCULAR HGB CONC 31.5 g/dl (32.0-37.0); MEAN CORPUSCULAR VOLUME 81.5 fl (82.0-101.0); MONOCYTE # 0.9 10^3/ul (0.3-0.9); MONOCYTES % 5.5 % (0.0-11.0); NEUTROPHIL # 12.9 10^3/ul (1.6-7.5); NEUTROPHILS % 80.7 % (39.0-77.0); PLATELET COUNT 505 10^3/UL (140-415); RED BLOOD COUNT 2.92 10^6/ul (4.20-5.40); RED CELL DISTRIBUTION WIDTH 16.7 % (11.5-14.5)
[2016-12-21 05:30] LABS: CALCIUM 8.3 mg/dl (8.4-10.2); CREATININE 0.72 mg/dl (0.44-1.00); MAGNESIUM 1.6 mg/dl (1.7-2.5); PHOSPHORUS 3.5 mg/dl (2.5-4.9); POTASSIUM 3.7 mmol/L (3.5-5.1)
[2016-12-21] MEDS: PIPER-TAZO 3.375 GM IV (PMX) 100 ML IVPB SCH ×3 (05:46→17:46)
[2016-12-21 07:00] VITALS: BP 110/57; RESP 18
[2016-12-21] MEDS: AMLODIPINE 5 MG TAB PO SCH (08:59)
[2016-12-21] MEDS: ENOXAPARIN 80 MG/0.8 ML SYG SC SCH ×2 (09:01→20:26)
--- NOTE | 2016-12-21 11:21 | RADRPT ---
PROCEDURE: XR Chest. CLINICAL INDICATION: Pneumonia TECHNIQUE: Single frontal chest x-ray. COMPARISON: 11/18/2016 FINDINGS: There are patchy infiltrates in the right lower lung new since prior exam. The left lung is clear. .. The cardiomediastinal silhouette is unremarkable. The osseous structures are intact. IMPRESSION: Right lower lung infiltrates.. RPTAT: QQ .Armando Wilson MD, MD Date Time Electronically viewed and signed by .Armando Wilson MD, on 12/21/2016 11:21 .L/
[2016-12-21] MEDS: DEXTROSE 5%-0.45% NACL 1,000 ML IV SCH ×2 (11:33→19:51)
[2016-12-21 13:52] LABS: HEMATOCRIT 25.6 % (37.0-47.0); HEMOGLOBIN 8.2 g/dl (12.0-16.0)
--- NOTE | 2016-12-21 15:23 | PN ---
Date/Time of Note Date/Time of Note DATE: 12/21/16 TIME: 15:16 Assessment/Plan VTE Prophylaxis VTE Prophylaxis Intervention: LMWH Lines/Catheters IV Catheter Type (from Nrs): Peripheral IV Assessment/Plan Chief Complaint/Hosp Course Assessment and plan 1. Suspect metastatic cancer. Tentative plan for dedicated liver protocol MRI. Follow-up with surgeon recommendations for possible biopsy. Oncologist following. 2. Borderline hepatic vein thrombosis suspect secondary to #1. Continue on empiric dose of Lovenox. Clothing Man following 3. Reported abdominal pain. Continue with analgesics. Suspect secondary to liver metastasis. Follow-up on MRI of the liver. 4. Leukocytosis. noted with some fevers and gram (+) bacteremia. ID consult to follow 5. History of hypertension. Stable at present. Will provide antihypertensives as needed Disposition plan: Tentative plan for the MRI. Continue oncological workup. Discussed plan of care with Dr. Kinney Problems: Subjective 24 Hr Interval Summary Free Text/Dictation Has some pain on breathing with deep inspiration Exam/Review of Systems Vital Signs Vitals Vital Signs Date Time Temp Pulse Resp B/P Pulse Ox O2 Delivery O2 Flow Rate FiO2 12/21/16 07:00 99.6 99 18 110/57 97 12/20/16 22:33 Room Air 12/20/16 18:01 21 Intake and Output 12/20/16 12/20/16 12/21/16 15:00 23:00 07:00 Intake Total 600 ml 1900 ml Output Total 1200 ml Balance 600 ml 700 ml Exam Constitutional: alert, oriented Psych: no complaints Head: normocephalic Neck: supple, No jvd Respiratory: clear to auscultation Cardiovascular: regular rate and rhythm Gastrointestinal: non-tender, soft Musculoskeletal: nl extremities to inspection Extremities: normal pulses Neurological: RADAR ENGINEER II-XII intact, nl mental status, nl speech Skin: nl turgor Results Result Diagram: 12/21/16 1330 12/21/16 0452 Results 24 hrs Laboratory Tests Test 12/20/16 16:20 12/21/16 04:52 12/21/16 13:30 Stool Occult Blood NEGATIVE White Blood Count 16.0 H Red Blood Count 2.92 L Hemoglobin 7.5 L 8.2 L Hematocrit 23.8 L 25.6 L Mean Corpuscular Volume 81.5 L Mean Corpuscular Hemoglobin 25.7 L Mean Corpuscular Hemoglobin Concent 31.5 L Red Cell Distribution Width 16.7 H Platelet Count 505 H Mean Platelet Volume 11.0 H Neutrophils % 80.7 H Lymphocytes % 10.8 L Monocytes % 5.5 Eosinophils % 1.4 Basophils % 0.4 Nucleated Red Blood Cells % 0.0 Neutrophils # 12.9 H Lymphocytes # 1.7 Monocytes # 0.9 Eosinophils # 0.2 Basophils # 0.1 Nucleated Red Blood Cells # 0.0 Sodium Level 137 Potassium Level 3.7 Chloride Level 107 Carbon Dioxide Level 22 Anion Gap 12 Blood Urea Nitrogen 4 L Creatinine 0.72 Glucose Level 98 Calcium Level 8.3 L Phosphorus Level 3.5 Magnesium Level 1.6 L Medications Medications Current Medications Dextrose/Sodium Chloride (D5-1/2ns) 1,000 ml @ 100 mls/hr Q10H IV Last administered on 12/21/16 11:33; Admin Dose 100 MLS/HR; Start 12/20/16 at 03:30 Ondansetron HCl (Zofran Inj) 4 mg Q6H PRN IV NAUSEA AND/OR VOMITING; Start 12/20 at 07:30 Acetaminophen (Tylenol Tab) 650 mg Q6H PRN PO PAIN LEVEL 1-3 OR FEVER; Start at 07:30 Morphine Sulfate (morphine) 4 mg Q4H PRN IV SEVERE PAIN LEVEL 7-10 Last administered on 12/20/16 23:39; Admin Dose 4 MG; Start 12/20/16 at 07:30 Enoxaparin Sodium 80 mg 80 mg Q12 SC Last administered on 12/21/16 09:01; Admin Dose 80 MG; Start 12/20/16 at 09:00 Piperacillin Sod/ Tazobactam Sod (Zosyn 3.375gm/ 100 ml (Pmx)) 100 ml @ 200 mls /hr Q6 IVPB Last administered on 12/21/16 11:34; Admin Dose 200 MLS/HR; Start 12/21/16 at 00:00 Amlodipine Besylate (Norvasc) 5 mg DAILY PO Last administered on 12/21/16 08: 59; Admin Dose 5 MG; Start 12/21/16 at 09:00 LAKEISHA HICKS Dec 21, 2016 15:23
--- NOTE | 2016-12-21 16:23 | PN ---
Date/Time of Note Date/Time of Note DATE: 12/21/16 TIME: 16:22 Assessment/Plan VTE Prophylaxis VTE Prophylaxis Intervention: SCD's Lines/Catheters IV Catheter Type (from Nrs): Peripheral IV Assessment/Plan Chief Complaint/Hosp Course 51 year old female with: > Liver masses with abscess, multiple. MRI liver pending for further evaluation. She will need a biopsy of the liver lesions for formal diagnosis. > Anemia, with microcytosis. Most likely anemia of acute and chronic illness. Would expect ESR and Ferritin to be high. > Portal vein thrombosis. On Lovenox. > Bacteremia, with GM positive in blood culture. > Fevers, likely related to bacteremia and possible liver abscesses. Problems: Subjective 24 Hr Interval Summary Free Text/Dictation She feels better since admit. Less fevers. pain in RUQ is the same. Exam/Review of Systems Vital Signs Vitals Vital Signs Date Time Temp Pulse Resp B/P Pulse Ox O2 Delivery O2 Flow Rate FiO2 12/21/16 07:00 99.6 99 18 110/57 97 12/20/16 22:33 Room Air 12/20/16 18:01 21 Intake and Output 12/20/16 12/20/16 12/21/16 15:00 23:00 07:00 Intake Total 600 ml 1900 ml Output Total 1200 ml Balance 600 ml 700 ml Exam Obese female Pale NAD ABD Obese, soft, mildly tender RUQ No edema. Results Result Diagram: 12/21/16 1330 12/21/16 0452 Results 24 hrs Laboratory Tests Test 12/21/16 04:52 12/21/16 13:30 White Blood Count 16.0 H Red Blood Count 2.92 L Hemoglobin 7.5 L 8.2 L Hematocrit 23.8 L 25.6 L Mean Corpuscular Volume 81.5 L Mean Corpuscular Hemoglobin 25.7 L Mean Corpuscular Hemoglobin Concent 31.5 L Red Cell Distribution Width 16.7 H Platelet Count 505 H Mean Platelet Volume 11.0 H Neutrophils % 80.7 H Lymphocytes % 10.8 L Monocytes % 5.5 Eosinophils % 1.4 Basophils % 0.4 Nucleated Red Blood Cells % 0.0 Neutrophils # 12.9 H Lymphocytes # 1.7 Monocytes # 0.9 Eosinophils # 0.2 Basophils # 0.1 Nucleated Red Blood Cells # 0.0 Sodium Level 137 Potassium Level 3.7 Chloride Level 107 Carbon Dioxide Level 22 Anion Gap 12 Blood Urea Nitrogen 4 L Creatinine 0.72 Glucose Level 98 Calcium Level 8.3 L Phosphorus Level 3.5 Magnesium Level 1.6 L Medications Medications Current Medications Dextrose/Sodium Chloride (D5-1/2ns) 1,000 ml @ 100 mls/hr Q10H IV Last administered on 12/21/16 11:33; Admin Dose 100 MLS/HR; Start 12/20/16 at 03:30 Ondansetron HCl (Zofran Inj) 4 mg Q6H PRN IV NAUSEA AND/OR VOMITING; Start 12/20 at 07:30 Acetaminophen (Tylenol Tab) 650 mg Q6H PRN PO PAIN LEVEL 1-3 OR FEVER; Start at 07:30 Morphine Sulfate (morphine) 4 mg Q4H PRN IV SEVERE PAIN LEVEL 7-10 Last administered on 12/20/16 23:39; Admin Dose 4 MG; Start 12/20/16 at 07:30 Enoxaparin Sodium 80 mg 80 mg Q12 SC Last administered on 12/21/16 09:01; Admin Dose 80 MG; Start 12/20/16 at 09:00 Piperacillin Sod/ Tazobactam Sod (Zosyn 3.375gm/ 100 ml (Pmx)) 100 ml @ 200 mls /hr Q6 IVPB Last administered on 12/21/16 11:34; Admin Dose 200 MLS/HR; Start 12/21/16 at 00:00 Amlodipine Besylate (Norvasc) 5 mg DAILY PO Last administered on 12/21/16 08: 59; Admin Dose 5 MG; Start 12/21/16 at 09:00 FERNANDO CHAWLA MD Dec 21, 2016 16:23
--- NOTE | 2016-12-21 19:25 | CONS ---
Date/Time of Note Date/Time of Note DATE: 12/21/16 TIME: 19:21 Consult Date/Type/Reason Admit Date/Time Dec 19, 2016 at 21:34 Initial Consult Date 12/20/16 Type of Consultation: Pulm Subjective CT chest reviewed in detail. No events. Objective Vital Signs Date Time Temp Pulse Resp B/P Pulse Ox O2 Delivery O2 Flow Rate FiO2 12/21/16 07:00 99.6 99 18 110/57 97 12/20/16 22:33 Room Air 12/20/16 18:01 21 Intake and Output 12/20/16 12/20/16 12/21/16 15:00 23:00 07:00 Intake Total 600 ml 1900 ml Output Total 1200 ml Balance 600 ml 700 ml Exam HEENT: Neck supple; no JVD; no LAD CVS: RRR, S1 and S2 CHEST: Clear ABD: Soft, NT, + BS EXT: No c/c/e Results/Medications Result Diagram: 12/21/16 1330 12/21/16 0452 Results 24 hrs Laboratory Tests Test 12/21/16 04:52 12/21/16 13:30 White Blood Count 16.0 H Red Blood Count 2.92 L Hemoglobin 7.5 L 8.2 L Hematocrit 23.8 L 25.6 L Mean Corpuscular Volume 81.5 L Mean Corpuscular Hemoglobin 25.7 L Mean Corpuscular Hemoglobin Concent 31.5 L Red Cell Distribution Width 16.7 H Platelet Count 505 H Mean Platelet Volume 11.0 H Neutrophils % 80.7 H Lymphocytes % 10.8 L Monocytes % 5.5 Eosinophils % 1.4 Basophils % 0.4 Nucleated Red Blood Cells % 0.0 Neutrophils # 12.9 H Lymphocytes # 1.7 Monocytes # 0.9 Eosinophils # 0.2 Basophils # 0.1 Nucleated Red Blood Cells # 0.0 Sodium Level 137 Potassium Level 3.7 Chloride Level 107 Carbon Dioxide Level 22 Anion Gap 12 Blood Urea Nitrogen 4 L Creatinine 0.72 Glucose Level 98 Calcium Level 8.3 L Phosphorus Level 3.5 Magnesium Level 1.6 L Medications Current Medications Dextrose/Sodium Chloride (D5-1/2ns) 1,000 ml @ 100 mls/hr Q10H IV Last administered on 12/21/16t 11:33; Admin Dose 100 MLS/HR; Start 12/20/16 at 03:30 Ondansetron HCl (Zofran Inj) 4 mg Q6H PRN IV NAUSEA AND/OR VOMITING; Start 12/20 at 07:30 Acetaminophen (Tylenol Tab) 650 mg Q6H PRN PO PAIN LEVEL 1-3 OR FEVER; Start at 07:30 Morphine Sulfate (morphine) 4 mg Q4H PRN IV SEVERE PAIN LEVEL 7-10 Last administered on 12/20/16 23:39; Admin Dose 4 MG; Start 12/20/16 at 07:30 Enoxaparin Sodium 80 mg 80 mg Q12 SC Last administered on 12/21/16 09:01; Admin Dose 80 MG; Start 12/20/16 at 09:00 Piperacillin Sod/ Tazobactam Sod (Zosyn 3.375gm/ 100 ml (Pmx)) 100 ml @ 200 mls /hr Q6 IVPB Last administered on 12/21/16 17:46; Admin Dose 200 MLS/HR; Start 12/21/16 at 00:00 Amlodipine Besylate (Norvasc) 5 mg DAILY PO Last administered on 12/21/16 08: 59; Admin Dose 5 MG; Start 12/21/16 at 09:00 Assessment/Plan Additional Assessment/Plan IMP: 1. Possible Liver abscesses with associated hepatitis and portal vein thrombosis --r/o malignancy 2. Abnormal CT Chest with multiple nodular airspace opacities 3. BC+--r/o SPE RECS: 1. MRI vs. MRCP 2. F/U LFTs 3. Repeat BC x2 4. check ECHO 5. Continue anticoagulation ANKUSH GARRIDO MD Dec 21, 2016 19:25
[2016-12-21 19:43] VITALS: BP 110/57; PULSE 98; RESP 18
[2016-12-22] MEDS: PIPER-TAZO 3.375 GM IV (PMX) 100 ML IVPB SCH ×4 (00:01→18:18)
[2016-12-22] MEDS: CEFTRIAXONE 1 GM/50 ML (PMX) 50 ML IVPB SCH (00:30)
[2016-12-22] MEDS: DEXTROSE 5%-0.45% NACL 1,000 ML IV SCH ×3 (06:05→20:36)
[2016-12-22] MEDS: ACETAMINOPHEN 325 MG TAB PO PRN ×2 (06:32→21:29)
[2016-12-22 08:19] VITALS: BP 98/51; RESP 18
[2016-12-22] MEDS: AMLODIPINE 5 MG TAB PO SCH (09:00)
[2016-12-22] MEDS: ENOXAPARIN 80 MG/0.8 ML SYG SC SCH ×2 (10:07→20:38)
--- NOTE | 2016-12-22 10:59 | PN ---
Date/Time of Note Date/Time of Note DATE: 12/22/16 TIME: 10:57 Assessment/Plan Lines/Catheters IV C[facility] ([facility] Peripheral IV Assessment/Plan Chief Complaint/Hosp Course -Portal vein and right hepatic vein thrombosis: It seems the patient has developed thrombosis that is likely related to a hypercoagulable state. The patient would require to be worked up for possible metastatic disease. We will plan to follow the patient from oncology standpoint for further workup. From a vascular surgery standpoint, would recommend for the patient to be placed on anticoagulation in order to prevent any further propagation of thrombosis. -Await liver CT Scan -Optimize vascular status (BP meds, diet, nutrition, exercise, sugar control, weight loss, antiplatelets and anticoagulation). -Discussed findings, plan and management with the patient and her son at the bedside with a certified marine electronics repairer and they understand. -Thank you for allowing us to partake in the care of your patient. Please call with any questions. Problems: Subjective 24 Hr Interval Summary no new vascular events overnight Exam/Review of Systems Vital Signs Vitals Vital Signs Date Time Temp Pulse Resp B/P Pulse Ox O2 Delivery O2 Flow Rate FiO2 12/22/16 08:19 98.0 84 18 98/51 97 12/21/16 19:43 Room Air 12/20/16 18:01 21 Intake and Output 12/21/16 12/21/16 12/22/16 15:00 23:00 07:00 Intake Total 100 ml 1100 ml 1800 ml Output Total 1200 ml Balance 100 ml 1100 ml 600 ml Exam Free Text/Dictation GENERAL: She is alert and oriented x3, PULMONARY: Clear to auscultation bilaterally. CARDIOVASCULAR: S1, S2 present. ABDOMEN: Soft, upper abdomen with mild tenderness 2 to 3/10. Bowel sounds positive. Large pannus and truncal obesity. EXTREMITIES: Lower extremities, palpable femoral pulses, palpable pedal pulses. Motor, sensory intact. Capillary refill 2 to 3 seconds. Results Result Diagram: 12/21/16 1330 12/21/16 0452 RACHELL WOODARD MD Dec 22, 2016 10:59
[2016-12-22] MEDS ORDERED: VANCOMYCIN IV PER PHARMACY XX SCH (12:00)
[2016-12-22] MEDS ORDERED: VANCOMYCIN 1.5 GM in SOD CHLORIDE 0.9% 250 ML IVPB SCH (12:30)
--- NOTE | 2016-12-22 14:09 | PN ---
Date/Time of Note Date/Time of Note DATE: 12/22/16 TIME: 14:03 Assessment/Plan VTE Prophylaxis VTE Prophylaxis Intervention: LMWH Lines/Catheters IV Catheter Type (from Nrs): Peripheral IV Assessment/Plan Chief Complaint/Hosp Course Assessment and plan 1. Suspect metastatic disease. Tentative plan for dedicated liver protocol MRI. Follow-up with surgeon recommendations for possible biopsy. Oncologist following. 2. Borderline hepatic vein thrombosis suspect secondary to #1. Continue on empiric dose of Lovenox. Favor Maker following 3. Reported abdominal pain. Continue with analgesics. Suspect secondary to liver metastasis. Follow-up on MRI of the liver. 4. Leukocytosis. noted with some fevers and gram (+) bacteremia. ID consult to follow 5. History of hypertension. Stable at present. Will provide antihypertensives as needed 6. Bacteremia with gram positive cocci. cont on abx. ID was consulted Disposition plan: Tentative plan for the MRI liver. ID consulted for bacteremia. cont recs. cont oncological workup. Discussed plan of care with Dr. Kinney Problems: Subjective 24 Hr Interval Summary Free Text/Dictation reports having some pain on RUQ Exam/Review of Systems Vital Signs Vitals Vital Signs Date Time Temp Pulse Resp B/P Pulse Ox O2 Delivery O2 Flow Rate FiO2 12/22/16 08:19 98.0 84 18 98/51 97 12/21/16 19:43 Room Air 12/20/16 18:01 21 Intake and Output 12/21/16 12/21/16 12/22/16 15:00 23:00 07:00 Intake Total 100 ml 1100 ml 1800 ml Output Total 1200 ml Balance 100 ml 1100 ml 600 ml Exam Constitutional: alert, oriented Psych: nl mood/affect Head: normocephalic Neck: supple Respiratory: clear to auscultation, normal air movement Cardiovascular: regular rate and rhythm Gastrointestinal: soft, tender Musculoskeletal: nl extremities to inspection Neurological: PRIMER BOXER II-XII intact, nl mental status, nl speech Skin: nl turgor Results Result Diagram: 12/21/16 1330 12/21/16 0452 Medications Medications Current Medications Dextrose/Sodium Chloride (D5-1/2ns) 1,000 ml @ 100 mls/hr Q10H IV Last administered on 12/22/16t 06:05; Admin Dose 100 MLS/HR; Start 12/20/16 at 03:30 Ondansetron HCl (Zofran Inj) 4 mg Q6H PRN IV NAUSEA AND/OR VOMITING; Start 12/20 at 07:30 Acetaminophen (Tylenol Tab) 650 mg Q6H PRN PO PAIN LEVEL 1-3 OR FEVER Last administered on 12/22/16 06:32; Admin Dose 650 MG; Start 12/20/16 at 07:30 Morphine Sulfate (morphine) 4 mg Q4H PRN IV SEVERE PAIN LEVEL 7-10 Last administered on 12/20/16 23:39; Admin Dose 4 MG; Start 12/20/16 at 07:30 Enoxaparin Sodium 80 mg 80 mg Q12 SC Last administered on 12/22/16 10:07; Admin Dose 80 MG; Start 12/20/16 at 09:00 Piperacillin Sod/ Tazobactam Sod (Zosyn 3.375gm/ 100 ml (Pmx)) 100 ml @ 200 mls /hr Q6 IVPB Last administered on 12/22/16 12:32; Admin Dose 200 MLS/HR; Start 12/21/16 at 00:00 Amlodipine Besylate 5 mg 5 mg DAILY PO Last administered on 12/21/16 08:59; Admin Dose 5 MG; Start 12/21/16 at 09:00 Vancomycin HCl 1.5 gm/Sodium Chloride 250 ml @ 83.333 mls/ hr ONCE IVPB Last administered on 12/22/16 13:23; Admin Dose 83.333 MLS/HR; Start 12/22/16 at 12: 30; Stop 12/22/16 at 15:29 Vancomycin HCl/ Sodium Chloride (Vancocin/NS) 250 ml @ 83.333 mls/ hr Q12H IVPB ; Start 12/23/16 at 00:00 LAKEISHA HICKS Dec 22, 2016 14:09
--- NOTE | 2016-12-22 18:37 | CONS ---
Date/Time of Note Date/Time of Note DATE: 12/22/16 TIME: 18:36 Consult Date/Type/Reason Admit Date/Time Dec 19, 2016 at 21:34 Initial Consult Date 12/20/16 Type of Consultation: Pulm Subjective No events. Objective Vital Signs Date Time Temp Pulse Resp B/P Pulse Ox O2 Delivery O2 Flow Rate FiO2 12/22/16 08:19 98.0 84 18 98/51 97 12/21/16 19:43 Room Air 12/20/16 18:01 21 Intake and Output 12/21/16 12/21/16 12/22/16 15:00 23:00 07:00 Intake Total 100 ml 1100 ml 1800 ml Output Total 1200 ml Balance 100 ml 1100 ml 600 ml Exam HEENT: Neck supple; no JVD; no LAD CVS: RRR, S1 and S2 CHEST: Clear ABD: Soft, NT, + BS EXT: No c/c/e Results/Medications Result Diagram: 12/21/16 1330 12/21/16 0452 Medications Current Medications Dextrose/Sodium Chloride (D5-1/2ns) 1,000 ml @ 100 mls/hr Q10H IV Last administered on 12/22/16 06:05; Admin Dose 100 MLS/HR; Start 12/20/16 at 03:30 Ondansetron HCl (Zofran Inj) 4 mg Q6H PRN IV NAUSEA AND/OR VOMITING; Start 12/20 at 07:30 Acetaminophen (Tylenol Tab) 650 mg Q6H PRN PO PAIN LEVEL 1-3 OR FEVER Last administered on 12/22/16 06:32; Admin Dose 650 MG; Start 12/20/16 at 07:30 Morphine Sulfate (morphine) 4 mg Q4H PRN IV SEVERE PAIN LEVEL 7-10 Last administered on 12/20/16 23:39; Admin Dose 4 MG; Start 12/20/16 at 07:30 Enoxaparin Sodium 80 mg 80 mg Q12 SC Last administered on 12/22/16 10:07; Admin Dose 80 MG; Start 12/20/16 at 09:00 Piperacillin Sod/ Tazobactam Sod (Zosyn 3.375gm/ 100 ml (Pmx)) 100 ml @ 200 mls /hr Q6 IVPB Last administered on 12/22/16 18:18; Admin Dose 200 MLS/HR; Start 12/21/16 at 00:00 Amlodipine Besylate 5 mg 5 mg DAILY PO Last administered on 12/21/16t 08:59; Admin Dose 5 MG; Start 12/21/16 at 09:00 Vancomycin HCl/ Sodium Chloride (Vancocin/NS) 250 ml @ 83.333 mls/ hr Q12H IVPB ; Start 12/23/16 at 00:00 Assessment/Plan Additional Assessment/Plan IMP: 1. Possible Liver abscesses with associated hepatitis and portal vein thrombosis --r/o malignancy 2. Abnormal CT Chest with multiple nodular airspace opacities 3. BC+--r/o SPE RECS: 1. MRI abdomen 2. F/U LFTs 3. BC x2 4. check ECHO 5. Continue anticoagulation ANKUSH GARRIDO MD Dec 22, 2016 18:37
[2016-12-22 19:25] VITALS: BP 111/57; RESP 16
[2016-12-22] MEDS: ONDANSETRON 4 MG INJ IV PRN (21:29)
[2016-12-23] MEDS ORDERED: VANCOMYCIN 1.25 GM in SOD CHLORIDE 0.9% 250 ML IVPB SCH ×2
--- NOTE | 2016-12-23 01:05 | CONS ---
DATE OF ADMISSION: 12/19/2016 DATE OF CONSULTATION: 12/22/2016 INFECTIOUS DISEASE CONSULTATION REQUESTING PHYSICIAN: Dr. Vick Frederick for Dr. Juan Branham HISTORY OF PRESENT ILLNESS: The patient is a 51-year-old female who was referred by her local doctor because of weight loss and CT abnormalities on 12/19/2016. She had abnormalities of the portal an d right hepatic vein with venous thromboses. There were multiple nodules in the liver and there was a soft tissue mass associated with the uterus. White count was 15,900, platelet count elevated at 45 8,000 and her temperature shortly after arrival became as high as 103. The patient was begun treatm ent with Zithromax and ceftriaxone. This was later changed to vancomycin and Zosyn. Patient had ad ditional workup which revealed, since admission, now a patchy infiltrate in the right lower lobe wit h a previous infiltrate in the upper part of the right lower lobe. She had 1 of 2 blood cultures gr ew gram-positive cocci in pairs. liver function tests were abnormal with an AST of 172, ALT 109 and alkaline phosphatase is 373. She had a CA-125 antigen. She has a low serum iron, iron binding capac ity, indicating anemia of chronic disease and a hemoglobin of 9. MRI of the pelvis showed a peduncu lated leiomyomata Chelsie associated with the uterus. PHYSICAL EXAMINATION GENERAL: Reveals an obese female lying in bed. She coughs occasionally. She is not in acute distre ss. CHEST: Has decreased breath sounds in the right lower lobe, occasional rhonchi. Pulse is regular. No gallop or murmur. ABDOMEN: Obese, soft, no palpable organs or masses. EXTREMITIES: Reveal no edema, cyanosis or clubbing. INITIAL IMPRESSION: 1. Septicemia. 2. Streptococcal pneumoniae bacteremia. 3. Pneumonia, right lung. 4. Thrombocytosis. 5. Anemia of chronic disease. 6. Liver with metastatic lesions versus abscess. 7. Elevated CA-125. 8. Uterine mass, a pedunculated leiomyoma. RECOMMENDATIONS: I would change antibiotics to ceftriaxone alone 1 g IV daily and continue workup i n order to obtain tissue or more cultures. Thank you for referring this interesting patient to Dr. Branham. Dictated By: Marc AMBROSE/DAR Conf#: [id number] [employer]#: [id number]
[2016-12-23 06:17] LABS: CREATININE 1.26 mg/dl (0.44-1.00)
[2016-12-23 08:19] VITALS: BP 102/55; RESP 17
[2016-12-23] MEDS: DEXTROSE 5%-0.45% NACL 1,000 ML IV SCH (08:52)
[2016-12-23] MEDS: morphine 4 MG/ML VIAL IV PRN (08:52)
[2016-12-23] MEDS: ENOXAPARIN 80 MG/0.8 ML SYG SC SCH ×2 (08:53→21:42)
[2016-12-23] MEDS: AMLODIPINE 5 MG TAB PO SCH (09:00)
--- NOTE | 2016-12-23 09:56 | PN ---
Date/Time of Note Date/Time of Note DATE: 12/23/16 TIME: 09:17 Assessment/Plan VTE Prophylaxis VTE Prophylaxis Intervention: LMWH Lines/Catheters IV Catheter Type (from Nrsg): Peripheral IV Assessment/Plan Assessment/Plan 1. Abdominal pain: likely 2/2 liver lesions 2. Extensive portal vein thrombosis and right hepatic vein thrombosis 3. Multiple liver lesions concerning for metastatic cancer with Transaminitis 4. Pulmonary nodules and right-sided infiltrates 5. Uterine Leioma 6. HTN: controlled 7. Iron deficiency anemia 8. Alphahemolytic strep bacteremia rule out contaminant 9. Elevated CA 125 10. Probable UTI 11. Hypomagnesemia 12. ?GRICELDA : patient was previously on Vanco PLAN * Patient is planned for abdominal MRI with hepatic protocol, however this requires contrast. Patient has mild bump in Cr today. Commence hydration with NS * renal consult. No MRI till cleared. Consider proceeding with liver biopsy * Commenced IV iron replacement if okay with hematology * Continue treatment dose anticoagulation * Repeat blood and urine cultures / Continue antibiotics per ID * Gentle hydration * Supportive care Subjective 24 Hr Interval Summary Free Text/Dictation lethargic / poor appetite / warm to touch Exam/Review of Systems Vital Signs Vitals Vital Signs Date Time Temp Pulse Resp B/P Pulse Ox O2 Delivery O2 Flow Rate FiO2 12/23/16 08:19 98.5 103 17 102/55 96 12/21/16 19:43 Room Air 12/20/16 18:01 21 Intake and Output 12/22/16 12/22/16 12/23/16 15:00 23:00 07:00 Intake Total 100 ml 2140 ml 350 ml Output Total 1950 ml 600 ml Balance 100 ml 190 ml -250 ml Exam Constitutional: alert, oriented, warm, ill looking Psych: nl mood/affect Head: normocephalic Neck: supple Respiratory: clear to auscultation, normal air movement Cardiovascular: regular rate and rhythm Gastrointestinal: soft, tender mildly LLQ and RUQ Musculoskeletal: nl extremities to inspection Neurological: COOK APPRENTICE II-XII intact, nl mental status, nl speech Skin: nl turgor Results Result Diagram: 12/21/16 1330 12/23/16 0420 Results 24 hrs Laboratory Tests Test 12/23/16 04:20 Blood Urea Nitrogen 4 L Creatinine 1.26 H Medications Medications Current Medications Dextrose/Sodium Chloride (D5-1/2ns) 1,000 ml @ 100 mls/hr Q10H IV Last administered on 12/23/16 08:52; Admin Dose 100 MLS/HR; Start 12/20/16 at 03:30 Ondansetron HCl (Zofran Inj) 4 mg Q6H PRN IV NAUSEA AND/OR VOMITING Last administered on 12/22/16 21:29; Admin Dose 4 MG; Start 12/20/16 at 07:30 Acetaminophen (Tylenol Tab) 650 mg Q6H PRN PO PAIN LEVEL 1-3 OR FEVER Last administered on 12/22/16 21:29; Admin Dose 650 MG; Start 12/20/16 at 07:30 Morphine Sulfate (morphine) 4 mg Q4H PRN IV SEVERE PAIN LEVEL 7-10 Last administered on 12/23/16 08:52; Admin Dose 4 MG; Start 12/20/16 at 07:30 Enoxaparin Sodium (Lovenox) 80 mg Q12 SC Last administered on 12/23/16 08:53; Admin Dose 80 MG; Start 12/20/16 at 09:00 Amlodipine Besylate 5 mg 5 mg DAILY PO Last administered on 12/21/16 08:59; Admin Dose 5 MG; Start 12/21/16 at 09:00 Ceftriaxone Sodium (Rocephin) 50 ml @ 100 mls/hr Q24H IVPB Last administered on 12/22/16 00:30; Admin Dose 100 MLS/HR; Start 12/22/16 at 23:00; Stop at 23:30 KAHLIL MARTEL Dec 23, 2016 09:27
--- NOTE | 2016-12-23 10:53 | CONS ---
DATE OF ADMISSION: 12/19/2016 DATE OF CONSULTATION: 12/23/2016 TYPE OF CONSULTATION: Nephrology. REASON FOR CONSULTATION: Acute kidney injury. REQUESTING PHYSICIAN: Dr. Horner. HISTORY OF PRESENT ILLNESS: This is a 51-year-old female with a past medical history of hypertensio n who was brought into [facility] for evaluation of right quadrant and flank fulln ess for 1 month. The patient noted during the course of last month a 20-pound weight loss with nigh t sweats and chills. The patient had a CT scan of the abdomen and pelvis in an outpatient setting w [facility] showed extensive portal vein thrombosis, right hepatic vein thrombosis and multiple lesions in liver. she came into the emergency room for evaluation. 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 She also had blood cultures drawn which were positive for a lpha strep. The patient was placed on IV antibiotics. Per oncology, there is concern for metastati c disease. The patient also noted to have portal vein thrombosis and was evaluated by vascular surg vale who recommended anticoagulation. This patient otherwise has been stable during the hospital cou rse. Denied hemoptysis, hematemesis or hematochezia. In terms of the patient's renal history, the patient on admission noted to have a creatinine of 0.9 mg/dL. The patient had a CT angio on 12/19/2016. The patient's renal function was noted to be stab le until this morning on 12/23/2016, when the creatinine was noted to be 1.26 mg/dL. During this ti me, the patient has been receiving vancomycin. There have been no reports of any rashes, hemoptysis or hematochezia, but there has been noted hemodynamic fluctuations. PAST MEDICAL HISTORY: As stated above, history of hypertension. PAST SURGICAL HISTORY: None. ALLERGIES: NO KNOWN DRUG ALLERGIES. FAMILY HISTORY: No family history of kidney disease or heart disease. SOCIAL HISTORY: Does not drink, smoke or do drugs. MEDICATIONS: Patient medications have been reviewed. REVIEW OF SYSTEMS: A 14-point review of systems was conducted. Pertinent positives in HPI, otherwi se negative. PHYSICAL EXAMINATION: VITAL SIGNS: Blood pressure is 112/72, respiration is 18, pulse 100, temperature 98.6. HEENT: Head is normocephalic. Pupils are reactive to light. NECK: Supple. HEART: Regular rate. LUNGS: Show diminished breath sounds at base. ABDOMEN: Soft, nontender to palpation. No rebound or guarding. EXTREMITIES: Negative for clubbing, cyanosis, no edema. DERMATOLOGIC: No rashes. MUSCULOSKELETAL: No joint effusions. NEUROLOGIC: No focal deficits. LABORATORY DATA: Shows sodium 137, potassium 3.7, chloride 107, BUN 4, creatinine 1.26, magnesium 1 .6. White count 8.2, hemoglobin 25.6 and initial urinalysis shows +1 protein. ASSESSMENT AND PLAN: This is a 51-year-old female who presents with: 1. Nonoliguric acute kidney injury with previous normal baseline creatinine of 0.8 mg/dL. Etiology of acute kidney injury may be secondary to hemodynamics, questionable contrast-associated acute kid jazmin injury, nephrotoxicity from vancomycin. Plan at this point is to discontinue vancomycin. We wi ll continue patient on IV fluids. Will repeat a UA with microanalysis, check urine electrolytes. W ould otherwise continue supportive care and renally dose all meds. The patient is pending possible MRI with gadolinium. Would defer gadolinium at this time until renal function stabilizes. 2. Hypomagnesemia, replete with magnesium sulfate. 3. Anemia. Monitor hemoglobin and hematocrit levels. 4. Mineral bone disorder. Monitor calcium and phosphorus levels. 5. Portal vein and right hepatic vein thrombosis. Continue anticoagulation. 6. Multiple liver lesions concerning for possible metastatic cancer. The patient is pending MRI wi th gadolinium once renal function stable. 7. Bacteremia with pulmonary nodules. The patient is on IV antibiotics, continue. Follow up with Infectious Disease. 8. Hypertension. Continue current blood pressure regimen. Thank you, Dr. Horner, for this interesting consultation. It will be a pleasure to follow patient with you throughout the hospital course. Dictated By: MILLY GUTHRIE/DAR Conf#: [id number] DID#: [id number]
--- NOTE | 2016-12-23 11:02 | CONS ---
Date/Time of Note Date/Time of Note DATE: 12/23/16 TIME: 10:59 Assessment/Plan Assessment/Plan Additional Assessment/Plan Assessment and recommendations; 1. Patient admitted with nonspecific abdominal pain discovered to have uterine mass with liver lesions either hepatic abscesses versus hepatic metastasis. 2. Multiple focal alveolar without infiltrates on CT imaging of the chest indicative again metastasis versus hematogenous infection. Continue current treatment. Patient currently on appropriate antibiotic regimen. Liver biopsy is being planned. Consultation Date/Type/Reason Admit Date/Time Dec 19, 2016 at 21:34 Initial Consult Date 12/20/16 Type of Consultation: Pulm 24 HR Interval Summary Free Text/Dictation Patient condition is stable. Denies any nausea vomiting, denies any fever chills. Does complain of shortness of breath upon exertion. Also complains of mild right upper quadrant abdominal pain. Denies any diarrhea. General exam; middle-aged woman, awake alert currently in no distress. Exam/Review of Systems Vital Signs Vitals Vital Signs Date Time Temp Pulse Resp B/P Pulse Ox O2 Delivery O2 Flow Rate FiO2 12/23/16 08:19 98.5 103 17 102/55 96 12/21/16 19:43 Room Air 12/20/16 18:01 21 Intake and Output 12/22/16 12/22/16 12/23/16 15:00 23:00 07:00 Intake Total 100 ml 2140 ml 350 ml Output Total 1950 ml 600 ml Balance 100 ml 190 ml -250 ml Exam HEENT exam; supple neck, no JVD. No lymphadenopathy. Midline trachea. No thyromegaly. Patient has good dentition. Pupils are midsize and reactive to light bilaterally. No neck masses. Chest examination; clear to auscultation. S1-S2 audible, no murmurs. Regular rhythm. Abdomen examination; there is mild right upper quadrant tenderness. No organomegaly felt. Bowel sounds audible. Abdomen is nondistended. Extremity examination; no peripheral edema. 411 DIRECTORY ASSISTANCE OPERATOR examination; no focal deficit. Results Result Diagram: 12/21/16 1330 12/23/16 0420 Results 24 hrs Laboratory Tests Test 12/23/16 04:20 Blood Urea Nitrogen 4 L Creatinine 1.26 H Medications Medications Current Medications Ondansetron HCl (Zofran Inj) 4 mg Q6H PRN IV NAUSEA AND/OR VOMITING Last administered on 12/22/16t 21:29; Admin Dose 4 MG; Start 12/20/16 at 07:30 Acetaminophen (Tylenol Tab) 650 mg Q6H PRN PO PAIN LEVEL 1-3 OR FEVER Last administered on 12/22/16 21:29; Admin Dose 650 MG; Start 12/20/16 at 07:30 Morphine Sulfate (morphine) 4 mg Q4H PRN IV SEVERE PAIN LEVEL 7-10 Last administered on 12/23/16 08:52; Admin Dose 4 MG; Start 12/20/16 at 07:30 Enoxaparin Sodium (Lovenox) 80 mg Q12 SC Last administered on 12/23/16 08:53; Admin Dose 80 MG; Start 12/20/16 at 09:00 Amlodipine Besylate 5 mg 5 mg DAILY PO Last administered on 12/21/16 08:59; Admin Dose 5 MG; Start 12/21/16 at 09:00 Ceftriaxone Sodium 50 ml @ 100 mls/hr Q24H IVPB Last administered on 00:30; Admin Dose 100 MLS/HR; Start 12/22/16 at 23:00; Stop 12/29/16 at 23: 30 Sodium Chloride 1,000 ml @ 100 mls/hr Q10H IV ; Start 12/23/16 at 10:00 Metronidazole (Flagyl 500 Mg (Pmx)) 100 ml @ 100 mls/hr Q8 IVPB ; Start at 11:30 RONNY VELÁZQUEZ 12, 2017 11:02
[2016-12-23] MEDS: SOD CHLORIDE 0.9% 1,000 ML IV SCH (11:35)
[2016-12-23] MEDS: metroNIDAZOLE 500 MG/NS (PMX) 100 ML IVPB SCH ×2 (11:36→21:39)
--- NOTE | 2016-12-23 15:01 | PN ---
DATE: 12/23/2016 INFECTIOUS DISEASE PROGRESS NOTE SUBJECTIVE: No acute changes. The patient is awake, sitting in a chair. Looks comfortable. Denie s pain at the moment. Family at bedside. No labs this morning. MICROBIOLOGY: Blood culture on admission grew alpha hemolytic strep species. ANTIMICROBIALS: The patient is on: 1. Rocephin. 2. IV Flagyl. PHYSICAL EXAMINATION: GENERAL: This is a morbidly obese, well-developed, middle-aged woman who is awake, in no d istress. HEENT: Head atraumatic, normocephalic. Sclerae anicteric. Buccal mucosa dry. NECK: Supple. CHEST: Rise symmetrical. Breath sounds diminished. HEART: S1, S2. ABDOMEN: Soft, bowel sounds present. EXTREMITIES: Without cyanosis. ASSESSMENT: 1. Alpha hemolytic strep bacteremia. 2. Multiple liver lesions, questionable metastatic disease versus infectious etiology. 3. Portal vein thrombosis. 4. Abnormal CT chest with multiple nodular airspace opacities. 5. Acute renal failure. PLAN: The patient is clinically and hemodynamically stable on appropriate antimicrobials, pending a 2-D echo. She is being seen by multiple consultants, oncology is on case as well. Pending final w orkup. Dictated By: NANCY HULL SURVEY METHODOLOGIST for MAVIS HERRERA/DAR Conf#: [id number] DID#: [id number]
[2016-12-23] MEDS: SOD FERRIC GLUC COMPLX 125 MG in SOD CHLORIDE 0.9% 100 ML IVPB SCH (15:11)
[2016-12-23 16:16] LABS: ADD UMIC YES; UR BILIRUBIN (Dip) NEGATIVE (NEGATIVE); UR BLOOD (Dip) TRACE (NEGATIVE); UR CLARITY CLEAR (CLEAR); UR COLOR LT. YELLOW (YELLOW); UR GLUCOSE (Dip) NEGATIVE (NEGATIVE); UR KETONES (Dip) NEGATIVE (NEGATIVE); UR LEUKOCYTE ESTERASE (Dip) NEGATIVE (NEGATIVE); UR NITRITE (Dip) NEGATIVE (NEGATIVE); UR TOTAL PROTEIN (Dip) NEGATIVE (NEGATIVE); UR UROBILINOGEN (Dip) 0.2 E.U./dL (0.1-1.0)
[2016-12-23 16:22] LABS: URINE RBCS 0-2 /HPF (0)
--- NOTE | 2016-12-23 18:58 | PN ---
DATE: 12/23/2016 SUBJECTIVE: The patient states that she is feeling somewhat better. She is no longer having the pl euritic type chest pain in the right lower chest. There is no cough, no hemoptysis. The patient willson s had no further shaking chills or fever. OBJECTIVE: GENERAL: The patient is a well-developed, well-nourished female who is in no acute distress. VITAL SIGNS: Temperature 98.5, pulse 103, respirations 17, blood pressure 102/55, and pulse oximetr y is 96% on room air. SKIN: No ecchymosis, no petechiae or rashes. HEENT: Normocephalic. No evidence of trauma. The pupils are equal, round, react to light and acco mmodation. There is no scleral icterus. Extraocular movements are intact. Oral mucosa is moist wi thout lesions. Tongue is well papillated. NECK: Supple. No jugular venous distention or thyroid enlargement. CHEST: Clear to auscultation and percussion. No rhonchi, wheezes, rales except for mild decreased breath sounds and occasional rales in the right base. No rubs. ABDOMEN: Soft. No masses, no ascites. No longer any pain on palpation of the right upper quadrant . Bowel sounds are active. EXTREMITIES: Good range of motion. No clubbing, no edema or cyanosis. No palpable cords or Homans sign. NEUROLOGIC: Normal. ASSESSMENT: 1. Gram-positive bacteremia. 2. Hepatic lesions. 3. Rule out metastatic carcinoma versus hepatic abscesses. PLAN: The patient will ultimately require a biopsy of the liver, unless there is an improvement wit h antibiotic therapy. I would not wish to perform a biopsy until bacteremia has been adequately treated. Ultimately it will be necessary also to determine the etiology of the pedunculated uterine lesion. CBC and comprehensive metabolic panel are to be rechecked tomorrow to determine if there is an impro vement in the abnormal liver functions as well as a decrease and improvement in leukocytosis. Dictated By: ECTOR GHOSH MD SR/NTS Conf#: [id number] DID#: [id number] CC: DOUGIE MARTINEZ MD;*EndCC*
[2016-12-23] MEDS ORDERED: LIDOCAINE 1% (MPF) 5 ML VIAL ONE (19:02)
[2016-12-23 19:32] VITALS: BP 125/58; RESP 20
[2016-12-23] MEDS: CEFTRIAXONE 1 GM/50 ML (PMX) 50 ML IVPB SCH (23:16)
[2016-12-24] MEDS: SOD CHLORIDE 0.9% 1,000 ML IV SCH ×3 (01:01→14:25)
[2016-12-24 05:13] LABS: ADD SCAN DIFF NO
[2016-12-24 05:26] LABS: BASOPHIL # 0.1 10^3/ul (0.0-0.1); BASOPHILS % 0.5 % (0.0-2.0); EOSINOPHILS # 0.1 10^3/ul (0.0-0.5); EOSINOPHILS % 1.4 % (0.0-7.0); HEMATOCRIT 23.6 % (37.0-47.0); HEMOGLOBIN 7.5 g/dl (12.0-16.0); LYMPHOCYTES # 1.3 10^3/ul (0.8-2.9); LYMPHOCYTES % 12.3 % (15.0-51.0); MEAN CORPUSCULAR HEMOGLOBIN 26.7 pg (29.0-33.0); MEAN CORPUSCULAR HGB CONC 31.8 g/dl (32.0-37.0); MEAN PLATELET VOLUME 10.6 fl (7.4-10.4); MONOCYTE # 0.7 10^3/ul (0.3-0.9); MONOCYTES % 6.4 % (0.0-11.0); NEUTROPHILS % 78.5 % (39.0-77.0); PLATELET COUNT 598 10^3/UL (140-415); RED BLOOD COUNT 2.81 10^6/ul (4.20-5.40); WHITE BLOOD COUNT 10.2 10^3/ul (4.8-10.8)
[2016-12-24] MEDS: metroNIDAZOLE 500 MG/NS (PMX) 100 ML IVPB SCH ×3 (05:44→21:09)
[2016-12-24 05:49] LABS: ALBUMIN 2.6 g/dl (3.3-4.9); ALBUMIN/GLOBULIN RATIO 0.86; BILIRUBIN,INDIRECT 0.1 mg/dl (0-1.1); BILIRUBIN,TOTAL 0.1 mg/dl (0.2-1.3); CALCIUM 8.4 mg/dl (8.4-10.2); CREATININE 1.62 mg/dl (0.44-1.00); MAGNESIUM 1.6 mg/dl (1.7-2.5); POTASSIUM 4.4 mmol/L (3.5-5.1); TOTAL PROTEIN 5.6 g/dl (6.1-8.1)
[2016-12-24 08:16] VITALS: BP 120/66; RESP 18
[2016-12-24] MEDS: AMLODIPINE 5 MG TAB PO SCH (08:34)
[2016-12-24] MEDS: ENOXAPARIN 80 MG/0.8 ML SYG SC SCH ×2 (08:38→20:14)
--- NOTE | 2016-12-24 09:01 | PN ---
Date/Time of Note Date/Time of Note DATE: 12/24/16 TIME: 08:50 Assessment/Plan VTE Prophylaxis VTE Prophylaxis Intervention: LMWH (treatment dose) Lines/Catheters IV Catheter Type (from Nrs): Peripheral IV Assessment/Plan Assessment/Plan 1. Abdominal pain: likely 2/2 liver lesions: improved 2. Extensive portal vein thrombosis and right hepatic vein thrombosis 3. Multiple liver lesions concerning for metastatic cancer with Transaminitis 4. Pulmonary nodules and right-sided infiltrates 5. Uterine Leioma 6. HTN: controlled 7. Iron deficiency anemia 8. Alphahemolytic strep bacteremia rule out contaminant 9. Elevated CA 125 10. Probable UTI 11. Hypomagnesemia: replace 12. ?GRICELDA : patient was previously on Vanco and also received contrast patient will need probable liver biopsies ? ATN PLAN * Patient's clinical picture is suggestive of metastatic disease. However oncology feels this may also be infectious; as patient liver enzymes have improved with antibiotic therapy. Also she did have some bacteremia that seems is improving. As such, she will benefit from further hepatic imaging to adequately define the lesions seen there. * Unfortunately due to her renal function she is unable to get an MRI with hepatic protocol at this time, so after speaking with radiology, we will proceed with MRI without contrast which is not an optimal study but is all we can do right now. * Radiology advises against proceeding with liver biopsy without adequate imaging first. Pulmonary also feels that pursuing hepatic lesions will give more yield and is safer than attempting to pursue pulmonary lesions. * This plan was discussed with hematology oncology and they are in agreement as well. * Continue IV iron therapy / Monitor hgb / may require transfusion * Continue treatment dose anticoagulation * F/u repeat blood and urine cultures / Continue antibiotics per ID * Gentle hydration * Supportive care Subjective 24 Hr Interval Summary Free Text/Dictation Patient seen feels slightly better Still with mild tachycardia, but no further fevers I spoke with pulmonary, interventional radiology, and hematology oncology. Exam/Review of Systems Vital Signs Vitals Vital Signs Date Time Temp Pulse Resp B/P Pulse Ox O2 Delivery O2 Flow Rate FiO2 12/24/16 08:16 98.8 99 18 120/66 96 12/21/16 19:43 Room Air 12/20/16 18:01 21 Intake and Output 12/23/16 12/23/16 12/24/16 15:00 23:00 07:00 Intake Total 1600 ml 1690 ml 1290 ml Output Total 1300 ml 1500 ml Balance 1600 ml 390 ml -210 ml Exam Constitutional: alert, oriented, warm, less ill looking Psych: nl mood/affect Head: normocephalic Neck: supple Respiratory: clear to auscultation, normal air movement Cardiovascular: regular rate and rhythm Gastrointestinal: soft, tender mildly LLQ and RUQ Musculoskeletal: nl extremities to inspection Neurological: STREET AND BUILDING DECORATOR II-XII intact, nl mental status, nl speech Results Result Diagram: 12/24/16 0435 12/24/16 0435 Results 24 hrs Laboratory Tests Test 12/23/16 10:45 12/23/16 12:00 12/24/16 04:35 Stool Occult Blood NEGATIVE Urine Color LT. YELLOW Urine Clarity CLEAR Urine pH 6.0 Urine Specific [place] <=1.005 L Urine Ketones NEGATIVE Urine Nitrite NEGATIVE Urine Bilirubin NEGATIVE Urine Urobilinogen 0.2 E.U./dL Urine Leukocyte Esterase NEGATIVE Urine Microscopic RBC 0-2 Urine Microscopic WBC 0-2 Urine Epithelial Cells OCCASIONAL Urine Hemoglobin TRACE Urine Random Creatinine 32.84 Urine Random Sodium 29 L Urine Glucose NEGATIVE Urine Total Protein 25.0 H White Blood Count 10.2 # Red Blood Count 2.81 L Hemoglobin 7.5 L Hematocrit 23.6 L Mean Corpuscular Volume 84.0 Mean Corpuscular Hemoglobin 26.7 L Mean Corpuscular Hemoglobin Concent 31.8 L Red Cell Distribution Width 17.0 H Platelet Count 598 H Mean Platelet Volume 10.6 H Neutrophils % 78.5 H Lymphocytes % 12.3 L Monocytes % 6.4 Eosinophils % 1.4 Basophils % 0.5 Nucleated Red Blood Cells % 0.0 Neutrophils # 8.0 H Lymphocytes # 1.3 Monocytes # 0.7 Eosinophils # 0.1 Basophils # 0.1 Nucleated Red Blood Cells # 0.0 Sodium Level 144 Potassium Level 4.4 Chloride Level 113 H Carbon Dioxide Level 23 Anion Gap 12 Blood Urea Nitrogen 5 L Creatinine 1.62 H Glucose Level 80 Calcium Level 8.4 Phosphorus Level 4.9 Magnesium Level 1.6 L Total Bilirubin 0.1 L Direct Bilirubin 0.00 Indirect Bilirubin 0.1 Aspartate Amino Transf (AST/SGOT) 49 H Alanine Aminotransferase (ALT/SGPT) 54 Alkaline Phosphatase 225 H Total Protein 5.6 L Albumin 2.6 L Globulin 3.00 Albumin/Globulin Ratio 0.86 Medications Medications Current Medications Ondansetron HCl (Zofran Inj) 4 mg Q6H PRN IV NAUSEA AND/OR VOMITING Last administered on 12/22/16 21:29; Admin Dose 4 MG; Start 12/20/16 at 07:30 Acetaminophen (Tylenol Tab) 650 mg Q6H PRN PO PAIN LEVEL 1-3 OR FEVER Last administered on 12/22/16 21:29; Admin Dose 650 MG; Start 12/20/16 at 07:30 Morphine Sulfate (morphine) 4 mg Q4H PRN IV SEVERE PAIN LEVEL 7-10 Last administered on 12/23/16 08:52; Admin Dose 4 MG; Start 12/20/16 at 07:30 Enoxaparin Sodium (Lovenox) 80 mg Q12 SC Last administered on 12/24/16 08:38; Admin Dose 80 MG; Start 12/20/16 at 09:00 Amlodipine Besylate 5 mg 5 mg DAILY PO Last administered on 12/21/16 08:59; Admin Dose 5 MG; Start 12/21/16 at 09:00 Ceftriaxone Sodium 50 ml @ 100 mls/hr Q24H IVPB Last administered on 23:16; Admin Dose 100 MLS/HR; Start 12/22/16 at 23:00; Stop 12/29/16 at 23: 30 Sodium Chloride 1,000 ml @ 100 mls/hr Q10H IV Last administered on 12/24/16 01:01; Admin Dose 100 MLS/HR; Start 12/23/16 at 10:00 Metronidazole 100 ml @ 100 mls/hr Q8 IVPB Last administered on 12/24/16 05:44 ; Admin Dose 100 MLS/HR; Start 12/23/16 at 11:30 Ferric Sodium Gluconate Complex/ Sodium Chloride (Ferrlecit/NS) 110 ml @ 100 mls/hr Q24H IVPB Last administered on 12/23/16 15:11; Admin Dose 100 MLS/HR; Start 12/23/16 at 15:00; Stop 12/25/16 at 16:05 KAHLIL MARTEL 13, 2017 09:01
[2016-12-24] MEDS ORDERED: MAGNESIUM SULFATE 2 GM/50 ML 50 ML IVPB SCH (10:00)
--- NOTE | 2016-12-24 10:31 | PN ---
DATE: 12/24/2016 SUBJECTIVE: The patient is stable, no acute events overnight. No fevers, chills, nausea, vomiting. The patient's urinary output has been adequate. OBJECTIVE: VITAL SIGNS: Blood pressure is 120/66, respirations 18, pulse 99, temperature 98.8. HEENT: Head is normocephalic. NECK: Supple. HEART: Regular rate. LUNGS: Show diminished breath sounds at the bases. ABDOMEN: Soft, nontender to palpation. No rebound or guarding. EXTREMITIES: Negative for clubbing, cyanosis. No edema. DERMATOLOGIC: No rashes. MUSCULOSKELETAL: No joint effusions. NEUROLOGIC: No change in exam. MEDICATIONS: The patient's medications have been reviewed. LABORATORY DATA: Shows the FENa less than 1%. Protein-creatinine ratio approximately 800 mg per gr am of creatinine. Sodium 144, potassium 4.4, chloride 113, BUN 5, creatinine 1.62. White count 10. 2, hemoglobin 7.5, hematocrit 23.6, platelet count 598. ASSESSMENT AND PLAN: 1. Nonoliguric acute kidney injury with a baseline creatinine of 0.8 mg/dL. Etiology of acute kidn ey injury is secondary to contrast-associated nephropathy. Questionable nephrotoxicity from vancomy lesli. The patient appears to be in injury phase of acute tubular necrosis. The patient's urinalysis shows FENa less than 1% consistent with contrast-associated nephropathy. Plan at this point is con tinue gentle IV hydration. We will continue supportive care, renally dose all meds. Would defer an y MRI with gadolinium at this time. 2. Hypomagnesemia. Continue to monitor. We will replete. 3. Anemia. Continue to monitor hemoglobin and hematocrit levels. 4. Mineral bone disorder. We will monitor calcium and phosphorus levels. 5. Portal vein and right hepatic vein thrombosis. Continue anticoagulation. 6. Multiple liver lesions concerning for possible metastatic cancer. Continue workup. 7. Bacteremia and pulmonary nodules. Continue IV antibiotics. Follow up with infectious disease. 8. Hypertension. Continue current blood pressure regimen. Dictated By: MILLY GUTHRIE/DAR Conf#: [id number] DID#: [id number]
--- NOTE | 2016-12-24 11:09 | CONS ---
Date/Time of Note Date/Time of Note DATE: 12/24/16 TIME: 11:08 Consult Date/Type/Reason Admit Date/Time Dec 19, 2016 at 21:34 Initial Consult Date 12/20/16 Type of Consultation: Pulm Subjective Patient comfortable this morning pending MRI Denies chest pain or shortness of breath no hemoptysis or hematemesis. Objective Vital Signs Date Time Temp Pulse Resp B/P Pulse Ox O2 Delivery O2 Flow Rate FiO2 12/24/16 08:16 98.8 99 18 120/66 96 12/21/16 19:43 Room Air 12/20/16 18:01 21 Intake and Output 12/23/16 12/23/16 12/24/16 15:00 23:00 07:00 Intake Total 1600 ml 1690 ml 1290 ml Output Total 1300 ml 1500 ml Balance 1600 ml 390 ml -210 ml Exam GENERAL: VITAL SIGNS: per chart NECK: Supple. No JVD or lymphadenopathy. CARDIAC EXAM: S1, S2. No added sounds or murmurs. CHEST: clear bilaterally, No added sounds, rales or wheezes ABDOMEN: Soft, nontender. No guarding or rebound. EXTREMITIES: No cyanosis, clubbing or edema. NEUROLOGIC: Generalized weakness. No focal deficits. Results/Medications Result Diagram: 12/24/16 0435 12/24/16 0435 Results 24 hrs Laboratory Tests Test 12/23/16 12:00 12/24/16 04:35 Urine Color LT. YELLOW Urine Clarity CLEAR Urine pH 6.0 Urine Specific [place] <=1.005 L Urine Ketones NEGATIVE Urine Nitrite NEGATIVE Urine Bilirubin NEGATIVE Urine Urobilinogen 0.2 E.U./dL Urine Leukocyte Esterase NEGATIVE Urine Microscopic RBC 0-2 Urine Microscopic WBC 0-2 Urine Epithelial Cells OCCASIONAL Urine Hemoglobin TRACE Urine Random Creatinine 32.84 Urine Random Sodium 29 L Urine Glucose NEGATIVE Urine Total Protein 25.0 H White Blood Count 10.2 # Red Blood Count 2.81 L Hemoglobin 7.5 L Hematocrit 23.6 L Mean Corpuscular Volume 84.0 Mean Corpuscular Hemoglobin 26.7 L Mean Corpuscular Hemoglobin Concent 31.8 L Red Cell Distribution Width 17.0 H Platelet Count 598 H Mean Platelet Volume 10.6 H Neutrophils % 78.5 H Lymphocytes % 12.3 L Monocytes % 6.4 Eosinophils % 1.4 Basophils % 0.5 Nucleated Red Blood Cells % 0.0 Neutrophils # 8.0 H Lymphocytes # 1.3 Monocytes # 0.7 Eosinophils # 0.1 Basophils # 0.1 Nucleated Red Blood Cells # 0.0 Sodium Level 144 Potassium Level 4.4 Chloride Level 113 H Carbon Dioxide Level 23 Anion Gap 12 Blood Urea Nitrogen 5 L Creatinine 1.62 H Glucose Level 80 Calcium Level 8.4 Phosphorus Level 4.9 Magnesium Level 1.6 L Total Bilirubin 0.1 L Direct Bilirubin 0.00 Indirect Bilirubin 0.1 Aspartate Amino Transf (AST/SGOT) 49 H Alanine Aminotransferase (ALT/SGPT) 54 Alkaline Phosphatase 225 H Total Protein 5.6 L Albumin 2.6 L Globulin 3.00 Albumin/Globulin Ratio 0.86 Medications Current Medications Ondansetron HCl (Zofran Inj) 4 mg Q6H PRN IV NAUSEA AND/OR VOMITING Last administered on 12/22/16 21:29; Admin Dose 4 MG; Start 12/20/16 at 07:30 Acetaminophen (Tylenol Tab) 650 mg Q6H PRN PO PAIN LEVEL 1-3 OR FEVER Last administered on 12/22/16 21:29; Admin Dose 650 MG; Start 12/20/16 at 07:30 Morphine Sulfate (morphine) 4 mg Q4H PRN IV SEVERE PAIN LEVEL 7-10 Last administered on 12/23/16 08:52; Admin Dose 4 MG; Start 12/20/16 at 07:30 Enoxaparin Sodium (Lovenox) 80 mg Q12 SC Last administered on 12/24/16 08:38; Admin Dose 80 MG; Start 12/20/16 at 09:00 Amlodipine Besylate 5 mg 5 mg DAILY PO Last administered on 12/21/16 08:59; Admin Dose 5 MG; Start 12/21/16 at 09:00 Ceftriaxone Sodium 50 ml @ 100 mls/hr Q24H IVPB Last administered on 23:16; Admin Dose 100 MLS/HR; Start 12/22/16 at 23:00; Stop 12/29/16 at 23: 30 Sodium Chloride 1,000 ml @ 100 mls/hr Q10H IV Last administered on 12/24/16 01:01; Admin Dose 100 MLS/HR; Start 12/23/16 at 10:00 Metronidazole 100 ml @ 100 mls/hr Q8 IVPB Last administered on 12/24/16 05:44 ; Admin Dose 100 MLS/HR; Start 12/23/16 at 11:30 Ferric Sodium Gluconate Complex 125 mg/Sodium Chloride 110 ml @ 100 mls/hr Q24H IVPB Last administered on 12/23/16t 15:11; Admin Dose 100 MLS/HR; Start at 15:00; Stop 12/25/16 at 16:05 Magnesium Sulfate (Magnesium Sulfate 2 Gm/50 ml) 50 ml @ 25 mls/hr ONCE IVPB ; Start 12/24/16 at 10:00; Stop 12/24/16 at 11:59 Assessment/Plan Chief Complaint/Hosp Course Assessment 1. Metastatic cancer versus hematogenous spread from infectious etiology 2. Pulmonary nodule and infiltrates 3. Renal insufficiency likely obstructive 4. Anemia likely of chronic disease rule out GI bleed Plan 1. MRI today 2. Hematology oncology recommendations 3. Defer lung biopsy for now. Problems: JASON ROUSE MD, [facility] Dec 24, 2016 11:09
--- NOTE | 2016-12-24 12:05 | CONS ---
Date/Time of Note Date/Time of Note DATE: 12/24/16 TIME: 12:03 Assessment/Plan Assessment/Plan Chief Complaint/Hosp Course SUBJECTIVE: No acute changes. The patient is awake, sitting in a chair. Looks comfortable. Denies pain. Family at bedside. MICROBIOLOGY: Blood culture on admission grew alpha hemolytic strep species. ANTIMICROBIALS: 1. Rocephin. 2. IV Flagyl. PHYSICAL EXAMINATION: GENERAL: This is a morbidly obese, well-developed, middle-aged woman who is awake, in no distress. HEENT: Head atraumatic, normocephalic. Sclerae anicteric. Buccal mucosa dry. NECK: Supple. CHEST: Rise symmetrical. Breath sounds diminished. HEART: S1, S2. ABDOMEN: Soft, bowel sounds present. EXTREMITIES: Without cyanosis. ASSESSMENT: 1. Alpha hemolytic strep bacteremia. 2. Multiple liver lesions, questionable metastatic disease versus infectious etiology. 3. Portal vein thrombosis. 4. Abnormal CT chest with multiple nodular airspace opacities. 5. Acute renal failure. PLAN: The patient remains stable, repeat bld cx negative, continue abx, per oncology rec-s will need liver bx, f/u 2D ECHO. Pending final workup. matias staff/family Problems: Consultation Date/Type/Reason Admit Date/Time Dec 19, 2016 at 21:34 Initial Consult Date 12/20/16 Type of Consultation: id Exam/Review of Systems Vital Signs Vitals Vital Signs Date Time Temp Pulse Resp B/P Pulse Ox O2 Delivery O2 Flow Rate FiO2 12/24/16 08:16 98.8 99 18 120/66 96 12/21/16 19:43 Room Air 12/20/16 18:01 21 Intake and Output 12/23/16 12/23/16 12/24/16 14:59 22:59 06:59 Intake Total 1600 ml 1690 ml 1290 ml Output Total 1300 ml 1500 ml Balance 1600 ml 390 ml -210 ml Results Result Diagram: 12/24/16 0435 12/24/16 0435 Results 24 hrs Laboratory Tests Test 12/24/16 04:35 White Blood Count 10.2 # Red Blood Count 2.81 L Hemoglobin 7.5 L Hematocrit 23.6 L Mean Corpuscular Volume 84.0 Mean Corpuscular Hemoglobin 26.7 L Mean Corpuscular Hemoglobin Concent 31.8 L Red Cell Distribution Width 17.0 H Platelet Count 598 H Mean Platelet Volume 10.6 H Neutrophils % 78.5 H Lymphocytes % 12.3 L Monocytes % 6.4 Eosinophils % 1.4 Basophils % 0.5 Nucleated Red Blood Cells % 0.0 Neutrophils # 8.0 H Lymphocytes # 1.3 Monocytes # 0.7 Eosinophils # 0.1 Basophils # 0.1 Nucleated Red Blood Cells # 0.0 Sodium Level 144 Potassium Level 4.4 Chloride Level 113 H Carbon Dioxide Level 23 Anion Gap 12 Blood Urea Nitrogen 5 L Creatinine 1.62 H Glucose Level 80 Calcium Level 8.4 Phosphorus Level 4.9 Magnesium Level 1.6 L Total Bilirubin 0.1 L Direct Bilirubin 0.00 Indirect Bilirubin 0.1 Aspartate Amino Transf (AST/SGOT) 49 H Alanine Aminotransferase (ALT/SGPT) 54 Alkaline Phosphatase 225 H Total Protein 5.6 L Albumin 2.6 L Globulin 3.00 Albumin/Globulin Ratio 0.86 Medications Medications Current Medications Ondansetron HCl (Zofran Inj) 4 mg Q6H PRN IV NAUSEA AND/OR VOMITING Last administered on 12/22/16 21:29; Admin Dose 4 MG; Start 12/20/16 at 07:30 Acetaminophen (Tylenol Tab) 650 mg Q6H PRN PO PAIN LEVEL 1-3 OR FEVER Last administered on 12/22/16 21:29; Admin Dose 650 MG; Start 12/20/16 at 07:30 Morphine Sulfate (morphine) 4 mg Q4H PRN IV SEVERE PAIN LEVEL 7-10 Last administered on 12/23/16 08:52; Admin Dose 4 MG; Start 12/20/16 at 07:30 Enoxaparin Sodium (Lovenox) 80 mg Q12 SC Last administered on 12/24/16 08:38; Admin Dose 80 MG; Start 12/20/16 at 09:00 Amlodipine Besylate 5 mg 5 mg DAILY PO Last administered on 12/21/16 08:59; Admin Dose 5 MG; Start 12/21/16 at 09:00 Ceftriaxone Sodium 50 ml @ 100 mls/hr Q24H IVPB Last administered on 23:16; Admin Dose 100 MLS/HR; Start 12/22/16 at 23:00; Stop 12/29/16 at 23: 30 Sodium Chloride 1,000 ml @ 100 mls/hr Q10H IV Last administered on 12/24/16 01:01; Admin Dose 100 MLS/HR; Start 12/23/16 at 10:00 Metronidazole 100 ml @ 100 mls/hr Q8 IVPB Last administered on 12/24/16 05:44 ; Admin Dose 100 MLS/HR; Start 12/23/16 at 11:30 Ferric Sodium Gluconate Complex/ Sodium Chloride (Ferrlecit/NS) 110 ml @ 100 mls/hr Q24H IVPB Last administered on 12/23/16 15:11; Admin Dose 100 MLS/HR; Start 12/23/16 at 15:00; Stop 12/25/16 at 16:05 NANCY HULL NP Dec 24, 2016 12:05
[2016-12-24 14:15] LABS: MICROALBUMIN 0.5 mg/dL
[2016-12-24] MEDS: SOD FERRIC GLUC COMPLX 125 MG in SOD CHLORIDE 0.9% 100 ML IVPB SCH (16:12)
[2016-12-24 20:30] VITALS: BP 135/63; RESP 20
--- NOTE | 2016-12-24 20:50 | PN ---
DATE: 12/24/2016 SUBJECTIVE: The patient states she is feeling better and has no new complaints. Is not experiencin g right upper quadrant or right lower chest pain at this time. No cough or complaints of shortness of breath. OBJECTIVE: GENERAL: The patient is a well-developed, mildly obese female who is in no acute distress. VITAL SIGNS: Temperature 98.1, T-max 99.1, pulse 99 per minute and regular, respirations 18, blood pressure 120/66, pulse oximetry is 96% on room air. SKIN: No ecchymoses. No petechiae or rashes. HEENT: Normocephalic. No evidence of trauma. The pupils are equal, round, react to light and acco mmodation. Sclerae nonicteric. Oral mucosa is moist without lesions. NECK: Supple. No jugular venous distention or thyroid enlargement. CHEST: Clear. There are no rhonchi, wheezes, rales, or rubs. HEART: Regular sinus rhythm. No S3, S4, or murmurs. ABDOMEN: Soft. No masses, no ascites. No tenderness. Bowel sounds are active. EXTREMITIES: Good range of motion. No clubbing. No edema or cyanosis. No palpable cords or Murray s sign. NEUROLOGIC: Normal. LABORATORY DATA: White count 10,200; hemoglobin 7.5, hematocrit 83.6, MCV 84, and platelet count 59 8,000. Sodium 144, potassium 4.4, creatinine 1.62, BUN 5, total bilirubin 0.1, direct bilirubin 0, AST 49, ALT 54, alkaline phosphatase ____. ASSESSMENT: 1. Gram-positive bacteremia. 2. Three hepatic lesions, rule out metastatic carcinoma versus multiple hepatic abscesses. The patient does continue to improve on antibiotic therapy. The patient has no complaints of the pa in, which actually lead to the patient's admission and had been present for some time prior to start ing on antibiotics. At the same time, the patient's white count has decreased. Also liver function s have improved as well. AST is now minimally elevated at 49, ALT is normal. Alkaline phosphatase has also improved and is now ____. The improvements all coincide with antibiotic therapy. This of course does not rule out that the li lamont lesions may be metastatic in the face of gram-positive bacteremia. As noted by Dr. Monterroso, the patient's renal function is such that the patient should not undergo an MRI with gadolinium at this time. It is not clear that there would be any benefit to doing an MRI without gadolinium. Ultimately, the pedunculated lesion in the area of the uterus will have to be addressed, although it is less likely this is related to the hepatic abnormalities, as there is no abdominal or pelvic idvine nopathy noted. It is also unclear that the nodules seen on CT angiogram of the chest done on admission are actually of any significance. We will continue to follow complete metabolic panel in order to determine liver function. Dictated By: ECTOR GHOSH MD SR/NTS Conf#: [id number] DID#: [id number] CC: DOUGIE MARTINEZ MD;*End*
[2016-12-24] MEDS: CEFTRIAXONE 1 GM/50 ML (PMX) 50 ML IVPB SCH (22:58)
[2016-12-25] VITALS (7 sets, daily range): BP systolic 121–148; BP diastolic 61–73; PULSE 87–91; RESP 16–20
[2016-12-25] MEDS: SOD CHLORIDE 0.9% 1,000 ML IV SCH ×3 (02:00→15:32)
[2016-12-25 04:59] LABS: ADD SCAN DIFF NO
[2016-12-25 05:07] LABS: BASOPHILS % 0.5 % (0.0-2.0); EOSINOPHILS # 0.1 10^3/ul (0.0-0.5); HEMATOCRIT 23.9 % (37.0-47.0); HEMOGLOBIN 7.5 g/dl (12.0-16.0); LYMPHOCYTES # 1.1 10^3/ul (0.8-2.9); LYMPHOCYTES % 12.3 % (15.0-51.0); MEAN CORPUSCULAR HEMOGLOBIN 26.1 pg (29.0-33.0); MEAN CORPUSCULAR HGB CONC 31.4 g/dl (32.0-37.0); MEAN CORPUSCULAR VOLUME 83.3 fl (82.0-101.0); MEAN PLATELET VOLUME 10.2 fl (7.4-10.4); MONOCYTE # 0.6 10^3/ul (0.3-0.9); MONOCYTES % 6.6 % (0.0-11.0); NEUTROPHIL # 6.9 10^3/ul (1.6-7.5); PLATELET COUNT 613 10^3/UL (140-415); RED BLOOD COUNT 2.87 10^6/ul (4.20-5.40); RED CELL DISTRIBUTION WIDTH 17.1 % (11.5-14.5); WHITE BLOOD COUNT 8.7 10^3/ul (4.8-10.8)
[2016-12-25] MEDS: metroNIDAZOLE 500 MG/NS (PMX) 100 ML IVPB SCH ×3 (05:28→22:29)
[2016-12-25 06:27] LABS: ALBUMIN/GLOBULIN RATIO 0.96; CALCIUM 8.1 mg/dl (8.4-10.2); CREATININE 1.69 mg/dl (0.44-1.00); POTASSIUM 3.4 mmol/L (3.5-5.1); TOTAL PROTEIN 6.1 g/dl (6.1-8.1)
[2016-12-25 06:42] LABS: CREATININE 1.64 mg/dl (0.44-1.00); PHOSPHORUS 4.7 mg/dl (2.5-4.9); POTASSIUM 3.5 mmol/L (3.5-5.1)
[2016-12-25] MEDS ORDERED: POTASSIUM CHLORIDE (SR) 20 MEQ TAB PO STA (08:26)
[2016-12-25] MEDS: AMLODIPINE 5 MG TAB PO SCH (08:28)
--- NOTE | 2016-12-25 08:32 | RADRPT ---
PROCEDURE: MRI of the abdomen without contrast CLINICAL INDICATION: Abdominal pain. Portal vein thrombosis. Evaluate for liver masses. TECHNIQUE: An MRI of the abdomen was performed on a GE 1.5 Marielle scanner utilizing the following s equences: Axial T2-weighted with and without fat saturation, coronal single shot FSE T2-weighted, a xial T1-weighted in and out of phase. COMPARISON: Abdomen ultrasound 12/20/2016 and 11/18/2016. CT pulmonary angio 12/19/2016. FINDINGS: There is signal drop out of the liver parenchyma on the [id number] images in keeping with fatty in filtration of the liver. There is loss of normal signal void of the intrahepatic and extrahepatic po rtal vein in keeping with thrombus. There are multiple ill-defined focal liver lesions in the right hepatic lobe measures up to 3.5 cm. The spleen is normal in size and homogeneous in signal intens ity. The stomach is partially collapsed but grossly unremarkable. The pancreas, as visualized, is equally unremarkable. No pancreatic lesion is seen. The adrenal glands are symmetrically normal. There is a horseshoe kidney. The aorta is of normal caliber. There is no retroperitoneal lymphaden opathy. The bowel and mesentery, as visualized, are all unremarkable. There are small bilateral ple ural effusions with basilar atelectasis right greater than left. There is subcutaneous edema. IMPRESSION: 1. Extensive intra and extrahepatic portal vein thrombosis. 2. Multiple ill-defined focal liver lesions in the right hepatic lobe which are difficult to charac terize on this noncontrast MRI. The lesions are not consistent with fatty sparing. These could rep resent perfusional changes related to extensive portal vein thrombosis versus focal liver masses inc luding multifocal liver abscess given the development of lesions over a short period of time. Recomm end short term MRI followup with contrast for further characterization. 3. Fatty infiltration of the liver. 4. Small bilateral pleural effusions. 5. Subcutaneous edema. RPTAT: BB .Antoine Eric MD, MD Date Time Electronically viewed and signed by .Antoine Eric MD, on 12/25/2016 08:32 .O/
[2016-12-25] MEDS: ENOXAPARIN 80 MG/0.8 ML SYG SC SCH ×2 (08:53→20:46)
--- NOTE | 2016-12-25 10:34 | PN ---
DATE: 12/25/2016 SUBJECTIVE: The patient is stable, no acute events overnight. No fevers, chills, nausea, vomiting, no shortness of breath. OBJECTIVE: VITAL SIGNS: Blood pressure 121/61, respirations 17, pulse 79, temperature 98.3. HEENT: Head is normocephalic. NECK: Supple. HEART: Regular rate. LUNGS: Show diminished breath sounds at the base, otherwise clear. ABDOMEN: Soft, nontender to palpation without rebound or guarding. EXTREMITIES: Negative for clubbing, cyanosis, no edema. DERMATOLOGIC: No rashes. MUSCULOSKELETAL: No joint effusions. NEUROLOGIC: No change in exam. MEDICATIONS: Reviewed. LABORATORY DATA: Shows white count 8.7, hemoglobin 7.5, hematocrit 33.9, platelet count is 613. So dium 143, potassium 3.4, chloride 113, BUN 6, creatinine 1.69. ASSESSMENT AND PLAN: 1. Nonoliguric acute kidney injury with a baseline creatinine of 0.8 mg/dL. Etiology of acute kidn ey injury is secondary to contrast-induced nephropathy. The patient's renal function appears to be stabilizing as the patient has entered maintenance phase of acute tubular necrosis. At this point, continue current treatment plan, supportive care, renally dose all meds. Will decrease rate of IV hy dration. 2. Hypokalemia, replete with potassium chloride. 3. Hypomagnesemia. Continue to monitor and replete. 4. Anemia. Continue to monitor H and H levels. 5. Mineral bone disorder. Continue to monitor calcium and phosphorus levels. 6. Portal vein, right main, hepatic vein thrombosis. Continue current anticoagulation. 7. Multiple liver lesions concerning for possible metastatic cancer. Continue workup. 8. Bacteremia, pulmonary nodules, continue IV antibiotics. Follow up with infectious disease. 9. Hypertension. Continue blood pressure regimen. Dictated By: MILLY GUTHRIE/DAR Conf#: [id number] DID#: [id number]
--- NOTE | 2016-12-25 10:54 | PN ---
Date/Time of Note Date/Time of Note DATE: 12/25/16 TIME: 10:52 Assessment/Plan VTE Prophylaxis VTE Prophylaxis Intervention: LMWH Lines/Catheters IV [facility] Type [facility] Peripheral IV Urinary Cath still in place: No Assessment/Plan Assessment/Plan 1. Abdominal pain: likely 2/2 liver lesions: improved 2. Extensive portal vein thrombosis and right hepatic vein thrombosis 3. Multiple liver lesions concerning for metastatic cancer with Transaminitis 4. Pulmonary nodules and right-sided infiltrates 5. Uterine Leioma 6. HTN: controlled 7. Iron deficiency anemia 8. Alphahemolytic strep bacteremia rule out contaminant 9. Elevated CA 125 10. Probable UTI 11. Hypomagnesemia: replace 12. ?GRICELDA : patient was previously on Vanco and also received contrast patient will need probable liver biopsies ? ATN PLAN * Transfuse one unit of PRBCs * Patient's clinical picture is suggestive of metastatic disease. However oncology feels this may also be infectious; as patient liver enzymes have improved with antibiotic therapy. Also she did have some bacteremia that seems is improving. As such, she will benefit from further hepatic imaging to adequately define the lesions seen there. * Unfortunately due to her renal function she is unable to get an MRI with hepatic protocol at this time * Radiology advises against proceeding with liver biopsy without adequate imaging first. Pulmonary also feels that pursuing hepatic lesions will give more yield and is safer than attempting to pursue pulmonary lesions. * This plan was discussed with hematology oncology and they are in agreement as well. * Continue IV iron therapy / Monitor hgb / may require transfusion * Continue treatment dose anticoagulation * F/u repeat blood and urine cultures / Continue antibiotics per ID * Gentle hydration * Supportive care Subjective 24 Hr Interval Summary Free Text/Dictation Patient seen and examined. no new complaints Exam/Review of Systems Vital Signs Vitals Vital Signs Date Time Temp Pulse Resp B/P Pulse Ox O2 Delivery O2 Flow Rate FiO2 12/25/16 08:13 98.3 89 17 121/61 96 12/21/16 19:43 Room Air Intake and Output 12/24/16 12/24/16 12/25/16 15:00 23:00 07:00 Intake Total 1050 ml 1510 ml 1850 ml Balance 1050 ml 1510 ml 1850 ml Exam Constitutional: alert, oriented, warm, less ill looking Psych: nl mood/affect Head: normocephalic Neck: supple Respiratory: clear to auscultation, normal air movement Cardiovascular: regular rate and rhythm Gastrointestinal: soft, tender mildly LLQ and RUQ Musculoskeletal: nl extremities to inspection Neurological: [employer] II-XII intact, nl mental status, nl speech Results Result Diagram: 12/25/1644112/25/16441 Results 24 hrs Laboratory Tests Test 12/25/16 04:42 White Blood Count 8.7 Red Blood Count 2.87 L Hemoglobin 7.5 L Hematocrit 23.9 L Mean Corpuscular Volume 83.3 Mean Corpuscular Hemoglobin 26.1 L Mean Corpuscular Hemoglobin Concent 31.4 L Red Cell Distribution Width 17.1 H Platelet Count 613 H Mean Platelet Volume 10.2 Neutrophils % 79.0 H Lymphocytes % 12.3 L Monocytes % 6.6 Eosinophils % 1.0 Basophils % 0.5 Nucleated Red Blood Cells % 0.0 Neutrophils # 6.9 Lymphocytes # 1.1 Monocytes # 0.6 Eosinophils # 0.1 Basophils # 0.0 Nucleated Red Blood Cells # 0.0 Sodium Level 143 Potassium Level 3.4 L Chloride Level 113 H Carbon Dioxide Level 23 Anion Gap 10 Blood Urea Nitrogen 6 L Creatinine 1.69 H Glucose Level 94 Calcium Level 8.1 L Phosphorus Level 4.7 Magnesium Level 2.0 Total Bilirubin 0.0 L Direct Bilirubin 0.00 Indirect Bilirubin 0.0 Aspartate Amino Transf (AST/SGOT) 49 H Alanine Aminotransferase (ALT/SGPT) 55 Alkaline Phosphatase 225 H Total Protein 6.1 Albumin 3.0 L Globulin 3.10 Albumin/Globulin Ratio 0.96 Medications Medications Current Medications Ondansetron HCl (Zofran Inj) 4 mg Q6H PRN IV NAUSEA AND/OR VOMITING Last administered on 12/22/16 21:29; Admin Dose 4 MG; Start 12/20/16 at 07:30 Acetaminophen (Tylenol Tab) 650 mg Q6H PRN PO PAIN LEVEL 1-3 OR FEVER Last administered on 12/22/16 21:29; Admin Dose 650 MG; Start 12/20/16 at 07:30 Morphine Sulfate (morphine) 4 mg Q4H PRN IV SEVERE PAIN LEVEL 7-10 Last administered on 12/23/16 08:52; Admin Dose 4 MG; Start 12/20/16 at 07:30 Enoxaparin Sodium (Lovenox) 80 mg Q12 SC Last administered on 12/25/16 08:53; Admin Dose 80 MG; Start 12/20/16 at 09:00 Amlodipine Besylate 5 mg 5 mg DAILY PO Last administered on 12/21/16 08:59; Admin Dose 5 MG; Start 12/21/16 at 09:00 Ceftriaxone Sodium 50 ml @ 100 mls/hr Q24H IVPB Last administered on 22:58; Admin Dose 100 MLS/HR; Start 12/22/16 at 23:00; Stop 12/29/16 at 23: 30 Sodium Chloride 1,000 ml @ 50 mls/hr Q20H IV Last administered on 12/25/16 04 :18; Admin Dose 100 MLS/HR; Start 12/23/16 at 10:00 Metronidazole 100 ml @ 100 mls/hr Q8 IVPB Last administered on 12/25/16 05:28 ; Admin Dose 100 MLS/HR; Start 12/23/16 at 11:30 Ferric Sodium Gluconate Complex/ Sodium Chloride (Ferrlecit/NS) 110 ml @ 100 mls/hr Q24H IVPB Last administered on 12/24/16 16:12; Admin Dose 100 MLS/HR; Start 12/23/16 at 15:00; Stop 12/25/16 at 16:05 Procedures Procedures PROCEDURE: MRI of the abdomen without contrast CLINICAL INDICATION: Abdominal pain. Portal vein thrombosis. Evaluate for liver masses. TECHNIQUE: An MRI of the abdomen was performed on a Hired 1.5 Marielle scanner utilizing the following sequences: Axial T2-weighted with and without fat saturation, coronal single shot FSE T2-weighted, axial T1-weighted in and out of phase. COMPARISON: Abdomen ultrasound 12/20/2016 and 11/18/2016. CT pulmonary angio 12/19/2016. FINDINGS: There is signal drop out of the liver parenchyma on the [id number] images in keeping with fatty infiltration of the liver. There is loss of normal signal void of the intrahepatic and extrahepatic portal vein in keeping with thrombus. There are multiple ill-defined focal liver lesions in the right hepatic lobe measures up to 3.5 cm. The spleen is normal in size and homogeneous in signal intensity. The stomach is partially collapsed but grossly unremarkable. The pancreas, as visualized, is equally unremarkable. No pancreatic lesion is seen. The adrenal glands are symmetrically normal. There is a horseshoe kidney. The aorta is of normal caliber. There is no retroperitoneal lymphadenopathy. The bowel and mesentery, as visualized, are all unremarkable. There are small bilateral pleural effusions with basilar atelectasis right greater than left. There is subcutaneous edema. IMPRESSION: 1. Extensive intra and extrahepatic portal vein thrombosis. 2. Multiple ill-defined focal liver lesions in the right hepatic lobe which are difficult to characterize on this noncontrast MRI. The lesions are not consistent with fatty sparing. These could represent perfusional changes related to extensive portal vein thrombosis versus focal liver masses including multifocal liver abscess given the development of lesions over a short period of time. Recommend short term MRI followup with contrast for further characterization. 3. Fatty infiltration of the liver. 4. Small bilateral pleural effusions. 5. Subcutaneous edema. RPTAT: BB .Antoine Eric MD, Date Time Electronically viewed and signed by .Antoine Eric MD, on 12/25/2016 08:32 .O/ CC: KAHLIL MARTEL BOLATITO M. Dec 25, 2016 10:54
--- NOTE | 2016-12-25 12:41 | PN ---
DATE: 12/25/2016 SUBJECTIVE: The patient Kimmie underwent MRI yesterday, showed extensive intra and extrahepatic p ortal vein thrombosis, multiple ill-defined liver lesions also noted, unclear whether these metastas is or on MRI. The patient's condition remains stable. Neurologically, she is unchanged. PHYSICAL EXAMINATION: VITAL SIGNS: Temperature 98, pulse is 89 blood pressure 141/61, O2 saturation 96% on room air. NECK: Supple. No JVD or lymphadenopathy. CARDIAC: S1, S2, no added sounds or murmurs. CHEST: Diminished air entry bilaterally. ABDOMEN: Mildly distended, soft. EXTREMITIES: No cyanosis, clubbing, edema. NEUROLOGIC: Generalized weakness. LABORATORY DATA: White count 8.7, hemoglobin 7.5, platelets of 613, BUN 6, creatinine 1.69. IMPRESSION AND PLAN: 1. Liver metastasis versus hematogenous spread of infectious process. 2. Extensive portal vein thrombosis and hepatic vein thrombosis. 3. Pulmonary infiltrates and nodules, malignancy versus infectious diseases. 4. History of hypertension. 5. Anemia, but no evidence of acute gastrointestinal bleed. PLAN: 1. Case needs to be discussed with radiology, I would recommend biopsy of liver lesions. 2. Continue current antibiotics. 3. Transfusion of packed red blood cells and GI consultation. 4. DVT and GI prophylaxis. Dictated By: JASON GARCIA/DAR Conf#: [id number] DID#: [id number]
--- NOTE | 2016-12-25 13:56 | CONS ---
Date/Time of Note Date/Time of Note DATE: 12/25/16 TIME: 13:54 Assessment/Plan Assessment/Plan Chief Complaint/Hosp Course SUBJECTIVE: No acute changes. The patient is awake, sitting in a chair. Looks comfortable. Denies pain. Family at bedside. MICROBIOLOGY: Blood culture on admission grew alpha hemolytic strep species. ANTIMICROBIALS: 1. Rocephin. 2. IV Flagyl. PHYSICAL EXAMINATION: GENERAL: This is a morbidly obese, well-developed, middle-aged woman who is awake, in no distress. HEENT: Head atraumatic, normocephalic. Sclerae anicteric. Buccal mucosa dry. NECK: Supple. CHEST: Rise symmetrical. Breath sounds diminished. HEART: S1, S2. ABDOMEN: Soft, bowel sounds present. EXTREMITIES: Without cyanosis. ASSESSMENT: 1. Alpha hemolytic strep bacteremia. 2. Multiple liver lesions ?infectious etiology r/o metastatic disease. 3. Portal vein thrombosis. 4. Abnormal CT chest with multiple nodular airspace opacities. 5. Acute renal failure. PLAN: Clinically improving, repeat bld cx negative, continue abx, f/u ECHO, oncology rec-s noted. Pending final workup. Pt will have to be on IV abx assisted if liver abscess not ruled out dw staff/family Problems: Consultation Date/Type/Reason Admit Date/Time Dec 19, 2016 at 21:34 Initial Consult Date 12/20/16 Type of Consultation: id Exam/Review of Systems Vital Signs Vitals Vital Signs Date Time Temp Pulse Resp B/P Pulse Ox O2 Delivery O2 Flow Rate FiO2 12/25/16 08:13 98.3 89 17 121/61 96 12/21/16 19:43 Room Air Intake and Output 12/24/16 12/24/16 12/25/16 15:00 23:00 07:00 Intake Total 1050 ml 1510 ml 1850 ml Balance 1050 ml 1510 ml 1850 ml Results Result Diagram: 12/25/16 0442 12/25/16 0442 Results 24 hrs Laboratory Tests Test 12/25/16 04:42 White Blood Count 8.7 Red Blood Count 2.87 L Hemoglobin 7.5 L Hematocrit 23.9 L Mean Corpuscular Volume 83.3 Mean Corpuscular Hemoglobin 26.1 L Mean Corpuscular Hemoglobin Concent 31.4 L Red Cell Distribution Width 17.1 H Platelet Count 613 H Mean Platelet Volume 10.2 Neutrophils % 79.0 H Lymphocytes % 12.3 L Monocytes % 6.6 Eosinophils % 1.0 Basophils % 0.5 Nucleated Red Blood Cells % 0.0 Neutrophils # 6.9 Lymphocytes # 1.1 Monocytes # 0.6 Eosinophils # 0.1 Basophils # 0.0 Nucleated Red Blood Cells # 0.0 Sodium Level 143 Potassium Level 3.4 L Chloride Level 113 H Carbon Dioxide Level 23 Anion Gap 10 Blood Urea Nitrogen 6 L Creatinine 1.69 H Glucose Level 94 Calcium Level 8.1 L Phosphorus Level 4.7 Magnesium Level 2.0 Total Bilirubin 0.0 L Direct Bilirubin 0.00 Indirect Bilirubin 0.0 Aspartate Amino Transf (AST/SGOT) 49 H Alanine Aminotransferase (ALT/SGPT) 55 Alkaline Phosphatase 225 H Total Protein 6.1 Albumin 3.0 L Globulin 3.10 Albumin/Globulin Ratio 0.96 Medications Medications Current Medications Ondansetron HCl (Zofran Inj) 4 mg Q6H PRN IV NAUSEA AND/OR VOMITING Last administered on 12/22/16 21:29; Admin Dose 4 MG; Start 12/20/16 at 07:30 Acetaminophen (Tylenol Tab) 650 mg Q6H PRN PO PAIN LEVEL 1-3 OR FEVER Last administered on 12/22/16 21:29; Admin Dose 650 MG; Start 12/20/16 at 07:30 Morphine Sulfate (morphine) 4 mg Q4H PRN IV SEVERE PAIN LEVEL 7-10 Last administered on 12/23/16 08:52; Admin Dose 4 MG; Start 12/20/16 at 07:30 Enoxaparin Sodium (Lovenox) 80 mg Q12 SC Last administered on 12/25/16 08:53; Admin Dose 80 MG; Start 12/20/16 at 09:00 Amlodipine Besylate 5 mg 5 mg DAILY PO Last administered on 12/21/16 08:59; Admin Dose 5 MG; Start 12/21/16 at 09:00 Ceftriaxone Sodium 50 ml @ 100 mls/hr Q24H IVPB Last administered on 22:58; Admin Dose 100 MLS/HR; Start 12/22/16 at 23:00; Stop 12/29/16 at 23: 30 Sodium Chloride 1,000 ml @ 50 mls/hr Q20H IV Last administered on 12/25/16 04 :18; Admin Dose 100 MLS/HR; Start 12/23/16 at 10:00 Metronidazole 100 ml @ 100 mls/hr Q8 IVPB Last administered on 12/25/16 05:28 ; Admin Dose 100 MLS/HR; Start 12/23/16 at 11:30 Ferric Sodium Gluconate Complex/ Sodium Chloride (Ferrlecit/NS) 110 ml @ 100 mls/hr Q24H IVPB Last administered on 12/24/16 16:12; Admin Dose 100 MLS/HR; Start 12/23/16 at 15:00; Stop 12/25/16 at 16:05 NANCY HULL NP Dec 25, 2016 13:56
[2016-12-25] MEDS: SOD FERRIC GLUC COMPLX 125 MG in SOD CHLORIDE 0.9% 100 ML IVPB SCH (16:19)
--- NOTE | 2016-12-25 17:06 | RADRPT ---
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 Physician: NANCY HULL Quality: Adequate Procedures: Transthoracic echocardiogram with complete 2D, M-Mode, and doppler examination. Indications: r/o vegetations, bacteremia. 2D/M Mode Doppler Measurement Value Normal Ranges Measurement Value Normal Ranges LVIDd 2D 3.8 3.5 - 5.6 cm AV Peak Jairo 1.5 m/sec LVIDs 2D 2.6 2.1 - 4.1 cm AV Peak PG 9.3 mmHg LVPWd 2D 1.0 0.6 - 1.1 cm LVOT Peak Jairo 1.1 m/sec IVSd 2D 1.0 0.6 - 1.1 cm LVOT Peak PG 5.0 mmHg AoR Diam 2D 2.6 2.0 - 3.7 cm MV E Peak Jairo 0.8 m/sec EDV 2D 61.2 cm3 MV A Peak Jairo 0.8 m/sec ESV 2D 18.2 cm3 MV E/A 1.1 LA Dimen 2D 3.7 2.3 - 4.0 cm MV Decel Time 214 msec MV Decel Clay 4 MV E/A 1.1 Findings Left Ventricle: Normal left ventricular cavity size. Normal left ventricular wall thickness. Mild global left ventricular systolic dysfunction. Ejection fraction is visually estimated at 55 %. Tissue Doppler/Mitral Doppler indices are consistent with impaired relaxation (Stage I diastolic dysfunction). Right Ventricle: Normal right ventricular size. Normal right ventricular systolic function. Left Atrium: The left atrium is normal in size. Right Atrium: The right atrium is normal in size. Mitral Valve: Mitral valve leaflets appear mildly thickened. Mild mitral annular calcification. Trace mitral regurgitation. Aortic Valve: Normal appearance of the aortic valve. No significant aortic stenosis or insufficiency. Tricuspid Valve: Normal appearance and function of the tricuspid valve with trace physiologic regurgitation. Unable to obtain RVSP due to minimal presence of tricuspid regurgitation. Pericardium: Trivial pericardial effusion. Aorta: Normal aortic root. IVC: Normal size and normal respiratory collapse consistent with normal right atrial pressure. Conclusions 1.Normal left ventricular cavity size. Normal left ventricular wall thickness. Mild global left ventricular systolic dysfunction. Ejection fraction is visually estimated at 55 %. Tissue Doppler/Mitral Doppler indices are consistent with impaired relaxation (Stage I diastolic dysfunction). 2.Mitral valve leaflets appear mildly thickened. Mild mitral annular calcification. Trace mitral regurgitation. 3.Normal appearance and function of the tricuspid valve with trace physiologic regurgitation. Unable to obtain RVSP due to minimal presence of tricuspid regurgitation. 4.Trivial pericardial effusion. Electronically Signed By: Anuj Rodriguez 25-Dec-2016 17:06:02 -0700 Patient Name: DEBORAH DE ANDA Study Date: 24-Dec-2016 [id number]
--- NOTE | 2016-12-25 18:40 | PN ---
DATE: 12/25/2016 SUBJECTIVE: This is a medical oncology progress note. Patient states that the right upper quadrant and right lower chest pain are improved but still has pain when coughing. Does not have a producti ve cough. The patient has had no fevers, no shaking chills. She has not had night sweats. OBJECTIVE GENERAL: Patient is a well-developed, well-nourished female who is in no acute distress. VITAL SIGNS: Temperature 98.6, pulse 88 per minute and regular, respirations 16, blood pressure 137 /66, pulse oximetry 96% on room air. SKIN: No ecchymosis, no petechiae or rashes. HEENT: No mucosal lesions. No scleral icterus. NECK: Supple, no jugular venous distention or thyroid enlargement. CHEST: Clear to auscultation and percussion. No rhonchi, wheezes, rales or rubs. HEART: Regular sinus rhythm, no S3, S4 or murmurs. No rubs. ABDOMEN: Soft and obese. No masses or ascites. There is some slight tenderness on palpation of th e right upper quadrant. Bowel sounds are active. EXTREMITIES: Good range of motion, no clubbing, edema or cyanosis. NEUROLOGIC: Normal. LABORATORY: White count 8700 with an absolute neutrophil count of 6900, hemoglobin 7.5, hematocrit 23.9 and platelet count 613,000. Sodium 143, potassium 3.4, BUN 6 and creatinine 1.69. Bilirubin i s 0, AST 49, ALT 55, alkaline phosphatase 225. ASSESSMENT: 1. Gram-positive bacteremia. 2. Multiple hepatic lesions, rule out metastatic carcinoma versus possible infectious etiology. 3. Portal vein thrombosis. The patient's liver functions today are stable. The white count continues to decrease and the patie nt is afebrile. As noted, many of the patient's original complaints have resolved and liver functio ns have improved only with antibiotic therapy. Unfortunately, the MRI which was done yesterday does not provide any further information as the patient is not able to receive gadolinium because of hep atic function. The patient's liver function will continued to be monitored on a regular basis. Ultimately, however, it will likely be necessary to perform a liver biopsy unless, there is complete resolution of the hepatic lesions. Dictated By: ECTOR GHOSH MD SR/NTS Conf#: [id number] [facility]#: [id number]
[2016-12-25] MEDS: ACETAMINOPHEN 325 MG TAB PO PRN ×2 (22:22→23:01)
[2016-12-25] MEDS ORDERED: AL HYDROX/MG HYDROX/SIMETH 30 ML CUP PO ONE (23:00)
[2016-12-25] MEDS: CEFTRIAXONE 1 GM/50 ML (PMX) 50 ML IVPB SCH (23:35)
--- NOTE | 2016-12-26 04:56 | RADRPT ---
PROCEDURE: US upper extremity Venous Doppler study. CLINICAL INDICATION: Swelling TECHNIQUE: Multiple sonographic images of the right upper extremity deep venous system was obtaine d utilizing grayscale, color-flow, compressive sonography and doppler imaging with augmentation. Th e images were reviewed on a PACS workstation. COMPARISON: None. FINDINGS: There are normal venous wave forms demonstrated within the internal jugular, subclavian, and axillar y veins. The brachial, and cephalic veins demonstrate normal venous flow and compressibility. The radial and ulnar veins are patent. The right basilic vein is noncompressible at the antecubital fossa and contains echogenic thrombus w ith loss of flow. IMPRESSION: Positive for thrombus in the basilic vein at the antecubital fossa. RPTAT: HIKT .Polo Macedo MD, Date Time Electronically viewed and signed by .Polo Macedo MD, on 12/26/2016 04:56 .T/
[2016-12-26] MEDS ORDERED: VANCOMYCIN 1 GM (PMX) 250 ML IVPB SCH (05:00)
--- NOTE | 2016-12-26 05:00 | RADRPT ---
PROCEDURE: Ultrasound soft tissue CLINICAL INDICATION: Right upper extremity redness TECHNIQUE: Campbell scale and color Doppler ultrasound performed over the area of interest at the ante cubital fossa. COMPARISON: No pertinent prior examinations were submitted for comparison. FINDINGS: There is no evidence of a drainable fluid collection or mass. IMPRESSION: No evidence of mass or abscess. RPTAT: HIKT .Polo Macedo MD, MD Date Time Electronically viewed and signed by .Polo Macedo MD, MD on 12/26/2016 05:00 .T/
[2016-12-26] MEDS: PANTOPRAZOLE 40 MG INJ IV SCH (05:10)
[2016-12-26 05:11] LABS: ADD SCAN DIFF NO
[2016-12-26 05:21] LABS: BASOPHIL # 0.1 10^3/ul (0.0-0.1); BASOPHILS % 0.6 % (0.0-2.0); EOSINOPHILS # 0.1 10^3/ul (0.0-0.5); EOSINOPHILS % 1.6 % (0.0-7.0); HEMATOCRIT 27.2 % (37.0-47.0); HEMOGLOBIN 8.5 g/dl (12.0-16.0); LYMPHOCYTES # 1.3 10^3/ul (0.8-2.9); LYMPHOCYTES % 14.5 % (15.0-51.0); MEAN CORPUSCULAR HEMOGLOBIN 26.4 pg (29.0-33.0); MEAN CORPUSCULAR HGB CONC 31.3 g/dl (32.0-37.0); MEAN CORPUSCULAR VOLUME 84.5 fl (82.0-101.0); MEAN PLATELET VOLUME 10.4 fl (7.4-10.4); MONOCYTE # 0.7 10^3/ul (0.3-0.9); MONOCYTES % 7.8 % (0.0-11.0); NEUTROPHIL # 6.7 10^3/ul (1.6-7.5); NEUTROPHILS % 74.6 % (39.0-77.0); PLATELET COUNT 624 10^3/UL (140-415); RED BLOOD COUNT 3.22 10^6/ul (4.20-5.40); RED CELL DISTRIBUTION WIDTH 17.6 % (11.5-14.5); WHITE BLOOD COUNT 8.9 10^3/ul (4.8-10.8)
[2016-12-26 05:41] LABS: INR 1.16; PROTIME 14.9 Sec (12.2-14.2); PT RATIO 1.2
[2016-12-26 05:45] LABS: CALCIUM 8.4 mg/dl (8.4-10.2); CREATININE 1.66 mg/dl (0.44-1.00); PHOSPHORUS 4.5 mg/dl (2.5-4.9); POTASSIUM 3.7 mmol/L (3.5-5.1)
[2016-12-26] MEDS: metroNIDAZOLE 500 MG/NS (PMX) 100 ML IVPB SCH ×3 (07:28→22:19)
[2016-12-26 08:02] VITALS: BP 129/70; RESP 17
[2016-12-26] MEDS: AMLODIPINE 5 MG TAB PO SCH ×2 (08:32→10:55)
[2016-12-26] MEDS: ENOXAPARIN 80 MG/0.8 ML SYG SC SCH ×3 (08:33→22:20)
--- NOTE | 2016-12-26 09:37 | PN ---
DATE: 12/26/2016 SUBJECTIVE: The patient is pending liver biopsy today. No other acute events noted. No fevers, ch ills, nausea or vomiting. OBJECTIVE: VITAL SIGNS: Blood pressure 129/70, respirations 17, pulse 86, temperature 98.2. HEENT: Head is normocephalic. NECK: Supple. HEART: Regular rate. LUNGS: Showed diminished breath sounds at the base. ABDOMEN: Soft, nontender to palpation. No rebound or guarding. EXTREMITIES: Negative for clubbing or cyanosis. No edema. DERMATOLOGIC: No rashes. MUSCULOSKELETAL: Have no joint effusion. NEUROLOGIC: No change in exam. MEDICATIONS: The patient's medications have been reviewed. LABORATORY DATA: Showed sodium 145, potassium 3.7, chloride 113, BUN 6, creatinine 1.66. White cou nt 8.9, hemoglobin 8.5, hematocrit 27.2, platelet count is 624. ASSESSMENT AND PLAN: 1. Nonoliguric acute kidney injury with a baseline creatinine of 0.8 mg/dL. Etiology of acute kidn ey injury is secondary to contrast-associated nephropathy. The patient's renal function appears to be stabilizing, intermittent phase of acute tubular necrosis, as renal function has been stable over the last 24 to 48 hours. At this point, continue the current treatment care, renally dose all medi cations, continue gentle IV hydration at the current rate. 2. Hypokalemia. Improved. Continue to monitor. 3. Hypomagnesemia. Resolved. 4. Anemia. Continue to monitor hemoglobin and hematocrit levels. 5. Mineral bone disorder. Monitor calcium and phosphorus levels. 6. Portal vein hepatic vein thrombosis. Continue the current anticoagulation. 7. Multiple liver lesions, concerning for possible metastatic cancer. The patient's workup is ongo ing. Liver biopsy is pending. 8. Bacteremia. Continue the current IV antibiotics. 9. Hypertension. Continue the current blood pressure regimen. Dictated By: MILLY GUTHRIE/DAR Conf#: [id number] DID#: [id number]
[2016-12-26] MEDS: SOD CHLORIDE 0.9% 1,000 ML IV SCH (11:36)
--- NOTE | 2016-12-26 12:04 | PN ---
Date/Time of Note Date/Time of Note DATE: 12/26/16 TIME: 11:58 Assessment/Plan VTE Prophylaxis VTE Prophylaxis Intervention: LMWH Lines/Catheters IV [facility]ter [facility] (from [facility]): Peripheral IV Urinary Cath still in place: No Assessment/Plan Assessment/Plan 1. Abdominal pain: likely 2/2 liver lesions: improved 2. Extensive portal vein thrombosis and right hepatic vein thrombosis 3. Multiple liver lesions concerning for metastatic cancer with Transaminitis 4. Pulmonary nodules and right-sided infiltrates 5. Uterine Leioma 6. HTN: controlled 7. Iron deficiency anemia s/p transfusion and on Iron therapy 8. Alpha hemolytic strep bacteremia rule out contaminant 9. Elevated CA 125 10. Probable UTI 11. R basilic vein thrombus 12. GRICELDA 2/2 ATN from contrast versus Vanco: stabilizing / recovery phase PLAN * Patient's clinical picture is suggestive of metastatic disease. However oncology feels this may also be infectious; as patient liver enzymes have improved with antibiotic therapy. Also she did have some bacteremia that seems is improving. As such, she will benefit from further hepatic imaging to adequately define the lesions seen there. * Unfortunately due to her renal function she is unable to get an MRI with hepatic protocol at this time, possibly tomorrow * Radiology will not proceed with liver biopsy without adequate imaging first. Pulmonary also feels that pursuing hepatic lesions will give more yield and is safer than attempting to pursue pulmonary lesions. * This plan was discussed with hematology oncology and they are in agreement as well. * Continue IV iron therapy * Continue treatment dose anticoagulation * Continue antibiotics per ID * Gentle hydration * Supportive care Subjective 24 Hr Interval Summary Free Text/Dictation Unable to get liver biopsy without gadolinium MRI Creatinine stable but nephrology has not okayed MRI just yet New finding of DVT noted. Exam/Review of Systems Vital Signs Vitals Vital Signs Date Time Temp Pulse Resp B/P Pulse Ox O2 Delivery O2 Flow Rate FiO2 12/26/16 08:02 98.2 86 17 129/70 98 12/25/16 16:07 Room Air Intake and Output 12/25/16 12/25/16 12/26/16 15:00 23:00 07:00 Intake Total 2110 ml 1550 ml Balance 2110 ml 1550 ml Exam Constitutional: alert, oriented, warm, less ill looking, ambulant Psych: nl mood/affect Head: normocephalic Neck: supple Respiratory: clear to auscultation, normal air movement Cardiovascular: regular rate and rhythm Gastrointestinal: soft, tender mildly LLQ and RUQ Musculoskeletal: nl extremities to inspection Neurological: 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 II-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 intact, nl mental status, nl speech Results Result Diagram: 12/26/1643912/26/16439 Results 24 hrs Laboratory Tests Test 12/26/16 04:40 12/26/16 05:32 White Blood Count 8.9 Red Blood Count 3.22 L Hemoglobin 8.5 L Hematocrit 27.2 L Mean Corpuscular Volume 84.5 Mean Corpuscular Hemoglobin 26.4 L Mean Corpuscular Hemoglobin Concent 31.3 L Red Cell Distribution Width 17.6 H Platelet Count 624 H Mean Platelet Volume 10.4 Neutrophils % 74.6 Lymphocytes % 14.5 L Monocytes % 7.8 Eosinophils % 1.6 Basophils % 0.6 Nucleated Red Blood Cells % 0.0 Neutrophils # 6.7 Lymphocytes # 1.3 Monocytes # 0.7 Eosinophils # 0.1 Basophils # 0.1 Nucleated Red Blood Cells # 0.0 Prothrombin Time 14.9 H Prothrombin Time Ratio 1.2 INR International Normalized Ratio 1.16 Sodium Level 145 H Potassium Level 3.7 Chloride Level 113 H Carbon Dioxide Level 25 Anion Gap 11 Blood Urea Nitrogen 6 L Creatinine 1.66 H Glucose Level 90 Calcium Level 8.4 Phosphorus Level 4.5 Magnesium Level 2.0 Lab Scanned Report BLOOD TRANSFUSION Medications Medications Current Medications Ondansetron HCl (Zofran Inj) 4 mg Q6H PRN IV NAUSEA AND/OR VOMITING Last administered on 12/22/16 21:29; Admin Dose 4 MG; Start 12/20/16 at 07:30 Acetaminophen (Tylenol Tab) 650 mg Q6H PRN PO PAIN LEVEL 1-3 OR FEVER Last administered on 12/25/16 23:01; Admin Dose 650 MG; Start 12/20/16 at 07:30 Morphine Sulfate (morphine) 4 mg Q4H PRN IV SEVERE PAIN LEVEL 7-10 Last administered on 12/23/16 08:52; Admin Dose 4 MG; Start 12/20/16 at 07:30 Enoxaparin Sodium (Lovenox) 80 mg Q12 SC Last administered on 12/26/16 10:51; Admin Dose 80 MG; Start 12/20/16 at 09:00 Amlodipine Besylate 5 mg 5 mg DAILY PO Last administered on 12/26/16 10:55; Admin Dose 5 MG; Start 12/21/16 at 09:00 Ceftriaxone Sodium 50 ml @ 100 mls/hr Q24H IVPB Last administered on 23:35; Admin Dose 100 MLS/HR; Start 12/22/16 at 23:00; Stop 12/29/16 at 23: 30 Sodium Chloride 1,000 ml @ 50 mls/hr Q20H IV Last administered on 12/26/16 11 :36; Admin Dose 50 MLS/HR; Start 12/23/16 at 10:00 Metronidazole (Flagyl 500 Mg (Pmx)) 100 ml @ 100 mls/hr Q8 IVPB Last administered on 12/26/16 07:28; Admin Dose 100 MLS/HR; Start 12/23/16 at 11:30 Pantoprazole (Protonix Iv) 40 mg DAILY@06 IV Last administered on 12/26/16 05: 10; Admin Dose 40 MG; Start 12/26/16 at 06:00 Procedures Procedures PROCEDURE: US upper extremity Venous Doppler study. CLINICAL INDICATION: Swelling TECHNIQUE: Multiple sonographic images of the right upper extremity deep venous system was obtained utilizing grayscale, color-flow, compressive sonography and doppler imaging with augmentation. The images were reviewed on a PACS workstation. COMPARISON: None. FINDINGS: There are normal venous wave forms demonstrated within the internal jugular, subclavian, and axillary veins. The brachial, and cephalic veins demonstrate normal venous flow and compressibility. The radial and ulnar veins are patent. The right basilic vein is noncompressible at the antecubital fossa and contains echogenic thrombus with loss of flow. IMPRESSION: Positive for thrombus in the basilic vein at the antecubital fossa. RPTAT: HIKT .Polo Macedo MD, MD Date Time Electronically viewed and signed by .Polo Macedo MD, on 12/26/2016 04:56 .T/ CC: RISHI RDZ BOLATITO M. Jun 15, 2017 12:03
--- NOTE | 2016-12-26 12:28 | CONS ---
Date/Time of Note Date/Time of Note DATE: 12/26/16 TIME: 12:20 Assessment/Plan Assessment/Plan Additional Assessment/Plan Assessment recommendations; 1. Patient admitted with a pelvic mass with multiple liver lesions as well as bilateral it without infiltrates suggestive of liver abscesses. Hematogenous spread to the lungs. Clinically improving. 2. Basilic vein thrombosis as well as portal vein thrombosis. Patient currently on anticoagulation. Continue current treatment. Will obtain follow-up chest x-ray. Consultation Date/Type/Reason Admit Date/Time Dec 19, 2016 at 21:34 Initial Consult Date 12/20/16 Type of Consultation: Pulmonary 24 HR Interval Summary Free Text/Dictation Patient condition is stable. Denies any shortness breath, chest pain, fever chills. Denies any abdominal pain, nausea vomiting. General exam; young woman, awake alert currently in no distress. Exam/Review of Systems Vital Signs Vitals Vital Signs Date Time Temp Pulse Resp B/P Pulse Ox O2 Delivery O2 Flow Rate FiO2 12/26/16 08:02 98.2 86 17 129/70 98 12/25/16 16:07 Room Air Intake and Output 12/25/16 12/25/16 12/26/16 14:59 22:59 06:59 Intake Total 2110 ml 1550 ml Balance 2110 ml 1550 ml Exam HEENT exam is; supple neck, no JVD. No lymphadenopathy. Midline trachea. No thyromegaly. Pharynx is clear. Chest examination; clear to auscultation. S1-S2 audible, no murmurs. Regular rhythm. Abdomen examination; soft, nontender. No or organomegaly. Bowel sounds audible. Extremity examination; no peripheral edema. 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 Results Result Diagram: 12/26/16 0440 12/26/16 0440 Results 24 hrs Laboratory Tests Test 12/26/16 04:40 12/26/16 05:32 White Blood Count 8.9 Red Blood Count 3.22 L Hemoglobin 8.5 L Hematocrit 27.2 L Mean Corpuscular Volume 84.5 Mean Corpuscular Hemoglobin 26.4 L Mean Corpuscular Hemoglobin Concent 31.3 L Red Cell Distribution Width 17.6 H Platelet Count 624 H Mean Platelet Volume 10.4 Neutrophils % 74.6 Lymphocytes % 14.5 L Monocytes % 7.8 Eosinophils % 1.6 Basophils % 0.6 Nucleated Red Blood Cells % 0.0 Neutrophils # 6.7 Lymphocytes # 1.3 Monocytes # 0.7 Eosinophils # 0.1 Basophils # 0.1 Nucleated Red Blood Cells # 0.0 Prothrombin Time 14.9 H Prothrombin Time Ratio 1.2 INR International Normalized Ratio 1.16 Sodium Level 145 H Potassium Level 3.7 Chloride Level 113 H Carbon Dioxide Level 25 Anion Gap 11 Blood Urea Nitrogen 6 L Creatinine 1.66 H Glucose Level 90 Calcium Level 8.4 Phosphorus Level 4.5 Magnesium Level 2.0 Lab Scanned Report BLOOD TRANSFUSION Medications Medications Current Medications Ondansetron HCl (Zofran Inj) 4 mg Q6H PRN IV NAUSEA AND/OR VOMITING Last administered on 12/22/16 21:29; Admin Dose 4 MG; Start 12/20/16 at 07:30 Acetaminophen (Tylenol Tab) 650 mg Q6H PRN PO PAIN LEVEL 1-3 OR FEVER Last administered on 12/25/16 23:01; Admin Dose 650 MG; Start 12/20/16 at 07:30 Morphine Sulfate (morphine) 4 mg Q4H PRN IV SEVERE PAIN LEVEL 7-10 Last administered on 12/23/16 08:52; Admin Dose 4 MG; Start 12/20/16 at 07:30 Enoxaparin Sodium (Lovenox) 80 mg Q12 SC Last administered on 12/26/16 10:51; Admin Dose 80 MG; Start 12/20/16 at 09:00 Amlodipine Besylate 5 mg 5 mg DAILY PO Last administered on 12/26/16 10:55; Admin Dose 5 MG; Start 12/21/16 at 09:00 Ceftriaxone Sodium 50 ml @ 100 mls/hr Q24H IVPB Last administered on 23:35; Admin Dose 100 MLS/HR; Start 12/22/16 at 23:00; Stop 12/29/16 at 23: 30 Sodium Chloride 1,000 ml @ 50 mls/hr Q20H IV Last administered on 12/26/16 11 :36; Admin Dose 50 MLS/HR; Start 12/23/16 at 10:00 Metronidazole (Flagyl 500 Mg (Pmx)) 100 ml @ 100 mls/hr Q8 IVPB Last administered on 12/26/16 07:28; Admin Dose 100 MLS/HR; Start 12/23/16 at 11:30 Pantoprazole (Protonix Iv) 40 mg DAILY@06 IV Last administered on 12/26/16t 05: 10; Admin Dose 40 MG; Start 12/26/16 at 06:00 RONNY VELÁZQUEZ Dec 26, 2016 12:28
--- NOTE | 2016-12-26 13:00 | CONS ---
Date/Time of Note Date/Time of Note DATE: 12/26/16 TIME: 12:58 Assessment/Plan Assessment/Plan Chief Complaint/Hosp Course SUBJECTIVE: No acute changes. The patient is awake. Looks comfortable. Denies pain. Family at bedside. MICROBIOLOGY: Blood culture on admission grew alpha hemolytic strep species. ANTIMICROBIALS: 1. Rocephin. 2. IV Flagyl. PHYSICAL EXAMINATION: GENERAL: This is a morbidly obese, well-developed, middle-aged woman who is awake, in no distress. HEENT: Head atraumatic, normocephalic. Sclerae anicteric. Buccal mucosa dry. NECK: Supple. CHEST: Rise symmetrical. Breath sounds diminished. HEART: S1, S2. ABDOMEN: Soft, bowel sounds present. EXTREMITIES: Without cyanosis. ASSESSMENT: 1. Alpha hemolytic strep bacteremia==> 2D ECHO neg. 2. Multiple liver lesions ?infectious etiology r/o metastatic disease. 3. Portal vein thrombosis. 4. Abnormal CT chest with multiple nodular airspace opacities. 5. Acute renal failure. PLAN: Improving, repeat bld cx negative, continue abx, f/u oncology rec-s noted. Pending final workup. 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 Problems: Consultation Date/Type/Reason Admit Date/Time Dec 19, 2016 at 21:34 Initial Consult Date 12/20/16 Type of Consultation: ID Exam/Review of Systems Vital Signs Vitals Vital Signs Date Time Temp Pulse Resp B/P Pulse Ox O2 Delivery O2 Flow Rate FiO2 12/26/16 08:02 98.2 86 17 129/70 98 12/25/16 16:07 Room Air Intake and Output 12/25/16 12/25/16 12/26/16 14:59 22:59 06:59 Intake Total 2110 ml 1550 ml Balance 2110 ml 1550 ml Results Result Diagram: 12/26/16 0440 12/26/16 0440 Results 24 hrs Laboratory Tests Test 12/26/16 04:40 12/26/16 05:32 White Blood Count 8.9 Red Blood Count 3.22 L Hemoglobin 8.5 L Hematocrit 27.2 L Mean Corpuscular Volume 84.5 Mean Corpuscular Hemoglobin 26.4 L Mean Corpuscular Hemoglobin Concent 31.3 L Red Cell Distribution Width 17.6 H Platelet Count 624 H Mean Platelet Volume 10.4 Neutrophils % 74.6 Lymphocytes % 14.5 L Monocytes % 7.8 Eosinophils % 1.6 Basophils % 0.6 Nucleated Red Blood Cells % 0.0 Neutrophils # 6.7 Lymphocytes # 1.3 Monocytes # 0.7 Eosinophils # 0.1 Basophils # 0.1 Nucleated Red Blood Cells # 0.0 Prothrombin Time 14.9 H Prothrombin Time Ratio 1.2 INR International Normalized Ratio 1.16 Sodium Level 145 H Potassium Level 3.7 Chloride Level 113 H Carbon Dioxide Level 25 Anion Gap 11 Blood Urea Nitrogen 6 L Creatinine 1.66 H Glucose Level 90 Calcium Level 8.4 Phosphorus Level 4.5 Magnesium Level 2.0 Lab Scanned Report BLOOD TRANSFUSION Medications Medications Current Medications Ondansetron HCl (Zofran Inj) 4 mg Q6H PRN IV NAUSEA AND/OR VOMITING Last administered on 12/22/16 21:29; Admin Dose 4 MG; Start 12/20/16 at 07:30 Acetaminophen (Tylenol Tab) 650 mg Q6H PRN PO PAIN LEVEL 1-3 OR FEVER Last administered on 12/25/16 23:01; Admin Dose 650 MG; Start 12/20/16 at 07:30 Morphine Sulfate (morphine) 4 mg Q4H PRN IV SEVERE PAIN LEVEL 7-10 Last administered on 12/23/16 08:52; Admin Dose 4 MG; Start 12/20/16 at 07:30 Enoxaparin Sodium (Lovenox) 80 mg Q12 SC Last administered on 12/26/16 10:51; Admin Dose 80 MG; Start 12/20/16 at 09:00 Amlodipine Besylate 5 mg 5 mg DAILY PO Last administered on 12/26/16 10:55; Admin Dose 5 MG; Start 12/21/16 at 09:00 Ceftriaxone Sodium 50 ml @ 100 mls/hr Q24H IVPB Last administered on 23:35; Admin Dose 100 MLS/HR; Start 12/22/16 at 23:00; Stop 12/29/16 at 23: 30 Sodium Chloride 1,000 ml @ 50 mls/hr Q20H IV Last administered on 12/26/16 11 :36; Admin Dose 50 MLS/HR; Start 12/23/16 at 10:00 Metronidazole (Flagyl 500 Mg (Pmx)) 100 ml @ 100 mls/hr Q8 IVPB Last administered on 12/26/16 07:28; Admin Dose 100 MLS/HR; Start 12/23/16 at 11:30 Pantoprazole (Protonix Iv) 40 mg DAILY@06 IV Last administered on 12/26/16 05: 10; Admin Dose 40 MG; Start 12/26/16 at 06:00 NANCY HULL NP Dec 26, 2016 12:59
--- NOTE | 2016-12-26 13:29 | CONS ---
Date/Time of Note Date/Time of Note DATE: 12/26/16 TIME: 13:13 Assessment/Plan Assessment/Plan Additional Assessment/Plan Assessment * Anemia R/O Lower GI bleed vs upper GI bleed Likely chronic in nature vs acute * MRI . Extensive intra and extrahepatic portal vein thrombosis. . Multiple ill-defined focal liver lesions in the right hepatic lobe R/O infectious vs malignancy Plan * EGD and colonoscopy tomorrow risk and benefit explain to family * Continue present management * Transfuse per protocol Consultation Date/Type/Reason Admit Date/Time Dec 19, 2016 at 21:34 Date of Consultation: Dec 26, 2016 Type of Consultation: Gastroenterology Reason for Consultation anemia/hepatic vein thrombosis Referring Provider: KAHLIL MARTEL of Present Illness 51 year old female referred for evaluation of anemia.Patient was admitted 1 week ago because of abdominal pain and CT scan findings of portal vein thrombosis by CT scan.Patient claims to have been suffering from abdominal pain right upper quadrant with associated nausea and vomiting.She denied any episode of hematemesis ,hematochezia,early satiety nor pyrosis . Subsequent workup ,revealed anemia with hemoglobin of 7 and received transfusion Present hemoglobin is 8.5 MRI revealed 1. Extensive intra and extrahepatic portal vein thrombosis. 2. Multiple ill-defined focal liver lesions in the right hepatic lobe which are difficult to characterize on this noncontrast MRI. The lesions are not consistent with fatty sparing. These could represent perfusional changes related to extensive portal vein thrombosis versus focal liver masses including multifocal liver abscess given the development of lesions over a short period of time. Recommend short term MRI followup with contrast for further characterization. 3. Fatty infiltration of the liver. 4. Small bilateral pleural effusions. 5. Subcutaneous edema. She was started on antibiotics and appear to be responding with the treatment however patient still complains of abdominal pain and scheduled to undergo liver biopsy. We planned to do egd and colonoscopy in order rule out the cause of anemia .Granddaughter is present during the discussion Constitutional: improved, no complaints Eyes: no complaints ENT: no complaints Respiratory: no complaints Cardiovascular: no complaints Gastrointestinal: other, pain Genitourinary: no complaints Musculoskeletal: no complaints Skin: no complaints Neurologic: no complaints Endocrine: no complaints Lymphatic: no complaints Psychological: anxiety Immunologic: no complaints Past Medical History Medical History: hypertension Past Surgical History Past Surgical Hx: no surgical history Social History Alcohol Use: none Smoking Status: Never smoker Drug Use: none Exam/Review of Systems Vital Signs Vitals Vital Signs Date Time Temp Pulse Resp B/P Pulse Ox O2 Delivery O2 Flow Rate FiO2 12/26/16 08:02 98.2 86 17 129/70 98 12/25/16 16:07 Room Air Intake and Output 12/25/16 12/25/16 12/26/16 14:59 22:59 06:59 Intake Total 2110 ml 1550 ml Balance 2110 ml 1550 ml Exam Constitutional: alert, oriented, well developed Psych: nl mood/affect, no complaints Head: atraumatic, normocephalic Eyes: EOMI, PERRL, nl conjunctiva, nl lids, nl sclera ENMT: nl external ears & nose, nl lips & teeth, nl nasal mucosa & septum Neck: non-tender, supple Respiratory: clear to auscultation, normal air movement Cardiovascular: nl pulses, regular rate and rhythm Gastrointestinal: nl liver, spleen, non-tender, soft Musculoskeletal: nl extremities to inspection, nl gait and stance Extremities: normal pulses Neurological: nl mental status, nl speech, nl strength Skin: nl turgor, No rash or lesions Lymph: nl lymph nodes Results Result Diagram: 12/26/16 0440 12/26/16 0440 Results 24 hrs Laboratory Tests Test 12/26/16 04:40 12/26/16 05:32 White Blood Count 8.9 Red Blood Count 3.22 L Hemoglobin 8.5 L Hematocrit 27.2 L Mean Corpuscular Volume 84.5 Mean Corpuscular Hemoglobin 26.4 L Mean Corpuscular Hemoglobin Concent 31.3 L Red Cell Distribution Width 17.6 H Platelet Count 624 H Mean Platelet Volume 10.4 Neutrophils % 74.6 Lymphocytes % 14.5 L Monocytes % 7.8 Eosinophils % 1.6 Basophils % 0.6 Nucleated Red Blood Cells % 0.0 Neutrophils # 6.7 Lymphocytes # 1.3 Monocytes # 0.7 Eosinophils # 0.1 Basophils # 0.1 Nucleated Red Blood Cells # 0.0 Prothrombin Time 14.9 H Prothrombin Time Ratio 1.2 INR International Normalized Ratio 1.16 Sodium Level 145 H Potassium Level 3.7 Chloride Level 113 H Carbon Dioxide Level 25 Anion Gap 11 Blood Urea Nitrogen 6 L Creatinine 1.66 H Glucose Level 90 Calcium Level 8.4 Phosphorus Level 4.5 Magnesium Level 2.0 Lab Scanned Report BLOOD TRANSFUSION Medications Medications Current Medications Ondansetron HCl (Zofran Inj) 4 mg Q6H PRN IV NAUSEA AND/OR VOMITING Last administered on 12/22/16 21:29; Admin Dose 4 MG; Start 12/20/16 at 07:30 Acetaminophen (Tylenol Tab) 650 mg Q6H PRN PO PAIN LEVEL 1-3 OR FEVER Last administered on 12/25/16 23:01; Admin Dose 650 MG; Start 12/20/16 at 07:30 Morphine Sulfate (morphine) 4 mg Q4H PRN IV SEVERE PAIN LEVEL 7-10 Last administered on 12/23/16 08:52; Admin Dose 4 MG; Start 12/20/16 at 07:30 Enoxaparin Sodium (Lovenox) 80 mg Q12 SC Last administered on 12/26/16 10:51; Admin Dose 80 MG; Start 12/20/16 at 09:00 Amlodipine Besylate 5 mg 5 mg DAILY PO Last administered on 12/26/16 10:55; Admin Dose 5 MG; Start 12/21/16 at 09:00 Ceftriaxone Sodium 50 ml @ 100 mls/hr Q24H IVPB Last administered on 23:35; Admin Dose 100 MLS/HR; Start 12/22/16 at 23:00; Stop 12/29/16 at 23: 30 Sodium Chloride 1,000 ml @ 50 mls/hr Q20H IV Last administered on 12/26/16 11 :36; Admin Dose 50 MLS/HR; Start 12/23/16 at 10:00 Metronidazole (Flagyl 500 Mg (Pmx)) 100 ml @ 100 mls/hr Q8 IVPB Last administered on 12/26/16 07:28; Admin Dose 100 MLS/HR; Start 12/23/16 at 11:30 Pantoprazole (Protonix Iv) 40 mg DAILY@06 IV Last administered on 12/26/16 05: 10; Admin Dose 40 MG; Start 12/26/16 at 06:00 MARTA MERIDA MD Dec 26, 2016 13:24
[2016-12-26] MEDS ORDERED: BISACODYL (EC) 5 MG TAB PO ONE (13:30)
[2016-12-26 15:37] VITALS: BP 129/70; PULSE 86; RESP 17
[2016-12-26] MEDS: ONDANSETRON 4 MG INJ IV PRN (17:17)
[2016-12-26] MEDS ORDERED: MAGNESIUM CITRATE 300 ML BTL PO ONE (17:30)
--- NOTE | 2016-12-26 18:02 | RADRPT ---
PROCEDURE: XR Chest. CLINICAL INDICATION: Shortness of breath. TECHNIQUE: Single frontal view. COMPARISON: 12/21/2016. FINDINGS: There is mild atelectasis at the lung bases. The lungs are otherwise clear. The heart is mildly enlarged. There is no pleural effusion. There is no pneumothorax. IMPRESSION: 1. Mild atelectasis at the lung bases. 2. Mild cardiomegaly. 3. Otherwise normal chest radiograph. RPTAT: QQ .Jer Cotto MD, Date Time Electronically viewed and signed by .Jer Cotto MD, MD on 12/26/2016 18:02 .R/
[2016-12-26] MEDS ORDERED: POLYETHYLENE GLYCOL 3350 119 GM POWDER PO ONE (18:30)
[2016-12-26 22:40] VITALS: BP 131/65; RESP 20
[2016-12-26] MEDS: CEFTRIAXONE 1 GM/50 ML (PMX) 50 ML IVPB SCH (23:44)
[2016-12-27 05:04] LABS: ADD SCAN DIFF NO
[2016-12-27 05:26] LABS: BASOPHIL # 0.1 10^3/ul (0.0-0.1); BASOPHILS % 0.6 % (0.0-2.0); EOSINOPHILS # 0.2 10^3/ul (0.0-0.5); HEMATOCRIT 27.1 % (37.0-47.0); HEMOGLOBIN 8.6 g/dl (12.0-16.0); LYMPHOCYTES # 1.3 10^3/ul (0.8-2.9); LYMPHOCYTES % 15.7 % (15.0-51.0); MEAN CORPUSCULAR HEMOGLOBIN 26.8 pg (29.0-33.0); MEAN CORPUSCULAR HGB CONC 31.7 g/dl (32.0-37.0); MEAN CORPUSCULAR VOLUME 84.4 fl (82.0-101.0); MEAN PLATELET VOLUME 10.2 fl (7.4-10.4); MONOCYTE # 0.6 10^3/ul (0.3-0.9); MONOCYTES % 7.8 % (0.0-11.0); NEUTROPHIL # 5.9 10^3/ul (1.6-7.5); NEUTROPHILS % 73.4 % (39.0-77.0); PLATELET COUNT 620 10^3/UL (140-415); RED BLOOD COUNT 3.21 10^6/ul (4.20-5.40); RED CELL DISTRIBUTION WIDTH 17.5 % (11.5-14.5)
[2016-12-27] MEDS: PANTOPRAZOLE 40 MG INJ IV SCH ×2 (05:30→18:26)
[2016-12-27] MEDS: metroNIDAZOLE 500 MG/NS (PMX) 100 ML IVPB SCH ×3 (05:30→21:43)
[2016-12-27 05:45] LABS: CALCIUM 8.3 mg/dl (8.4-10.2); CREATININE 1.55 mg/dl (0.44-1.00); MAGNESIUM 1.9 mg/dl (1.7-2.5); PHOSPHORUS 4.3 mg/dl (2.5-4.9); POTASSIUM 3.1 mmol/L (3.5-5.1)
[2016-12-27] MEDS ORDERED: POLYETHYLENE GLYCOL 3350 119 GM POWDER PO ONE (06:00)
[2016-12-27 07:17] VITALS: BP 126/69; RESP 20
[2016-12-27] MEDS: SOD CHLORIDE 0.9% 1,000 ML IV SCH ×2 (07:32→14:08)
[2016-12-27] MEDS ORDERED: BISACODYL (EC) 5 MG TAB PO ONE (08:00)
[2016-12-27] MEDS ORDERED: POTASSIUM CHLORIDE (SR) 20 MEQ TAB PO STA (08:15)
--- NOTE | 2016-12-27 08:40 | PN ---
DATE: 12/27/2016 SUBJECTIVE: The patient is stable. She is pending an EGD and colonoscopy this morning. The patie nt is also pending possible MRI with hepatic protocol. No other events noted. OBJECTIVE: VITAL SIGNS: Blood pressure 126/69, respirations 20, pulse 84, temperature 98.0. HEENT: Head is normocephalic. NECK: Supple. HEART: Regular rate. LUNGS: Showed diminished breath sounds at the base. ABDOMEN: Soft, nontender to palpation. No rebound or guarding. EXTREMITIES: Negative for clubbing or cyanosis. No edema. DERMATOLOGIC: No rashes. MUSCULOSKELETAL: Have no joint effusion. NEUROLOGIC: No change in exam. MEDICATIONS: The patient's medications have been reviewed. LABORATORY DATA: Shows sodium 144, potassium 3.1, chloride 113, BUN 6, creatinine 1.55. Calcium 8. 3, white count 8.9, hemoglobin 9.6, hematocrit 27.1, platelet count is 620. The patient's chest x-ray shows an otherwise normal study. ASSESSMENT AND PLAN: 1. Nonoliguric acute kidney injury, with a previous baseline creatinine of 0.8 mg/dL. Etiology is secondary to contrast-associated nephropathy. The patient's renal function is slowly improving. Cu rrently EGFR is around 38 mL per minute. At this point will continue the current treatment plan, [place] pportive care, renally dose all meds. There is no immediate contraindication for MRI with gadoliniu m at this time, as the patient's renal function has been recovering and GFR levels are over 30. If possible, would recommend to defer another 24 to 48 hours. If, however, a MRI is urgently needed, t here is no absolute contraindication. Otherwise, continue treatment plan, supportive care, renally dose all meds, avoid nephrotoxins. 2. Hypokalemia. Replete potassium chloride. 3. Hypomagnesemia. Resolved. 4. Anemia. Continue to monitor hemoglobin and hematocrit levels. 5. Mineral bone disorder. Continue to monitor calcium and phosphorus levels. 6. Portal vein thrombosis. Continue with the current anticoagulation. 7. Multiple liver lesions concerning for possible metastatic disease. Workup is ongoing. The brooklynn ent is pending EGD and colonoscopy. 8. Bacteremia. Continue IV antibiotics. 9. Hypertension. Continue the current blood pressure regimen. Dictated By: MILLY GUTHRIE/DAR Conf#: [id number] DID#: [id number]
[2016-12-27] MEDS: ENOXAPARIN 80 MG/0.8 ML SYG SC SCH ×2 (09:00→21:41)
[2016-12-27] MEDS: AMLODIPINE 5 MG TAB PO SCH (09:11)
[2016-12-27 09:47] LABS: TOTAL PROTEIN 4.5 g/dl (6.1-8.1)
--- NOTE | 2016-12-27 09:50 | PN ---
DATE: 12/27/2016 HEMATOLOGY/ONCOLOGY PROGRESS NOTE SUBJECTIVE: The patient states she still has some right upper quadrant and lower chest discomfort w hich is pleuritic in nature. It is, however, markedly improving as compared to the time of the brooklynn ent's admission. OBJECTIVE: GENERAL: The patient is a well-developed, well-nourished female who is in no acute distress. VITAL SIGNS: Temperature 98, pulse 84, respiratory rate 20 per minute, blood pressure is 126/69. P ulse oximetry is 96% on room air. SKIN: No ecchymoses, no petechiae or rashes, but pale. HEENT: Normocephalic. No evidence of trauma. Pupils equal, round, react to light and accommodatio n. Sclerae nonicteric. Oral mucosa is moist without lesions. NECK: Supple, no jugular venous distention or thyroid enlargement. CHEST: Clear to auscultation and percussion. No rhonchi, wheezes, rales or rubs. BREASTS: No masses, skin retraction, nipple inversion. NODES: No palpable lymphadenopathy in any lymph node bearing area. ABDOMEN: Obese, but soft. There is some slight tenderness on palpation of the epigastrium and righ t upper quadrant. No detectable masses. Bowel sounds are active. No ascites. EXTREMITIES: Good range of motion. No clubbing, no edema or cyanosis. No palpable cords or Homans sign. NEUROLOGIC: Normal. LABORATORY DATA: White count is 8000 with an absolute neutrophil count of 5900, hemoglobin 8.6, hem atocrit 27.1, and platelet count is 620,000. Sodium 144, potassium 3.1, BUN 6, creatinine 1.55. ASSESSMENT: 1. Gram-positive bacteremia, resolved. 2. Multiple hepatic lesions, rule out metastatic carcinoma versus multiple abscesses. 3. Portal vein thrombosis. DISCUSSION: Unfortunately, liver functions were not done today. We will request that liver functio ns be performed on the specimen obtained from this morning's draw. We will also repeat CBC and comp rehensive metabolic panel in the morning. There is still no definite diagnosis. The patient's symptoms are markedly improved as compared to t he time of admission as well as several weeks prior to admission when the patient was having fevers and abdominal pain. These symptoms have resolved. At the same time, there has been an improvement in the patient's leukocytosis and liver function studies. This suggests that some of the patient's symptoms and findings may have been on an infectious basis, and the patient has responded to antibio tic therapy. I does not, however, rule out the possibility of metastatic carcinoma or even a primar y hepatocellular carcinoma. Ultimately, the patient will require a biopsy of the liver if there is not complete resolution with antibiotic therapy. Unfortunately, the patient cannot have an MRI with gadolinium due to renal dysfunction. Dictated By: ECTOR GHOSH MD, SR/NTS Conf#: [id number] DID#: [id number]
--- NOTE | 2016-12-27 10:14 | PN ---
Date/Time of Note Date/Time of Note DATE: 12/27/16 TIME: 10:12 Assessment/Plan VTE Prophylaxis VTE Prophylaxis Intervention: LMWH Lines/Catheters IV [facility] Peripheral IV Urinary Cath still in place: No Assessment/Plan Assessment/Plan 1. Abdominal pain: likely 2/2 liver lesions: improved 2. Extensive portal vein thrombosis and right hepatic vein thrombosis 3. Multiple liver lesions concerning for metastatic cancer with Transaminitis 4. Pulmonary nodules and right-sided infiltrates 5. Uterine Leioma 6. HTN: controlled 7. Iron deficiency anemia s/p transfusion and on Iron therapy 8. Alpha hemolytic strep bacteremia rule out contaminant 9. Elevated CA 125 10. Probable UTI 11. R basilic vein thrombus 12. GRICELDA 2/2 ATN from contrast versus Vanco: stabilizing / recovery phase PLAN See discussion below. repeau USS to assess liver lesions / endoscopy today / ? MRI tomorrow * Patient's clinical picture is suggestive of metastatic disease. However oncology feels this may also be infectious; as patient liver enzymes have improved with antibiotic therapy. Also she did have some bacteremia that seems is improving. As such, she will benefit from further hepatic imaging to adequately define the lesions seen there. * Unfortunately due to her renal function she is unable to get an MRI with hepatic protocol at this time, possibly tomorrow * Radiology will not proceed with liver biopsy without adequate imaging first. Pulmonary also feels that pursuing hepatic lesions will give more yield and is safer than attempting to pursue pulmonary lesions. * This plan was discussed with hematology oncology and they are in agreement as well. * Continue IV iron therapy * Continue treatment dose anticoagulation * Continue antibiotics per ID * Gentle hydration * Supportive care Subjective 24 Hr Interval Summary Free Text/Dictation patient seen no further issues planned for endoscopy today Exam/Review of Systems Vital Signs Vitals Vital Signs Date Time Temp Pulse Resp B/P Pulse Ox O2 Delivery O2 Flow Rate FiO2 12/27/16 07:17 98.0 84 20 126/69 96 12/25/16 16:07 Room Air Intake and Output 12/26/16 12/26/16 12/27/16 15:00 23:00 07:00 Intake Total 1000 ml 1310 ml 750 ml Balance 1000 ml 1310 ml 750 ml Exam Constitutional: alert, oriented, warm, ambulant Psych: nl mood/affect Head: normocephalic Neck: supple Respiratory: clear to auscultation, normal air movement Cardiovascular: regular rate and rhythm Gastrointestinal: soft, tender mildly LLQ and RUQ Musculoskeletal: nl extremities to inspection Neurological: 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2 Basophils # 0.1 Nucleated Red Blood Cells # 0.0 Sodium Level 144 Potassium Level 3.1 L Chloride Level 113 H Carbon Dioxide Level 23 Anion Gap 11 Blood Urea Nitrogen 6 L Creatinine 1.55 H Glucose Level 88 Calcium Level 8.3 L Phosphorus Level 4.3 Magnesium Level 1.9 Total Bilirubin 0.0 L Direct Bilirubin 0.00 Indirect Bilirubin 0.0 Aspartate Amino Transf (AST/SGOT) 28 Alanine Aminotransferase (ALT/SGPT) 43 Alkaline Phosphatase 216 H Total Protein 4.5 L Albumin 3.0 L Medications Medications Current Medications Ondansetron HCl (Zofran Inj) 4 mg Q6H PRN IV NAUSEA AND/OR VOMITING Last administered on 12/26/16 17:17; Admin Dose 4 MG; Start 12/20/16 at 07:30 Acetaminophen (Tylenol Tab) 650 mg Q6H PRN PO PAIN LEVEL 1-3 OR FEVER Last administered on 12/25/16 23:01; Admin Dose 650 MG; Start 12/20/16 at 07:30 Morphine Sulfate (morphine) 4 mg Q4H PRN IV SEVERE PAIN LEVEL 7-10 Last administered on 12/23/16 08:52; Admin Dose 4 MG; Start 12/20/16 at 07:30 Enoxaparin Sodium (Lovenox) 80 mg Q12 SC Last administered on 12/26/16 22:20; Admin Dose 80 MG; Start 12/20/16 at 09:00 Amlodipine Besylate 5 mg 5 mg DAILY PO Last administered on 12/27/16 09:11; Admin Dose 5 MG; Start 12/21/16 at 09:00 Ceftriaxone Sodium 50 ml @ 100 mls/hr Q24H IVPB Last administered on 23:44; Admin Dose 100 MLS/HR; Start 12/22/16 at 23:00; Stop 12/29/16 at 23: 30 Sodium Chloride 1,000 ml @ 50 mls/hr Q20H IV Last administered on 12/26/16 11 :36; Admin Dose 50 MLS/HR; Start 12/23/16 at 10:00 Metronidazole (Flagyl 500 Mg (Pmx)) 100 ml @ 100 mls/hr Q8 IVPB Last administered on 12/27/16 05:30; Admin Dose 100 MLS/HR; Start 12/23/16 at 11:30 Pantoprazole (Protonix Iv) 40 mg DAILY@06 IV Last administered on 12/27/16 05: 30; Admin Dose 40 MG; Start 12/26/16 at 06:00 KAHLIL MARTEL Dec 27, 2016 10:14
--- NOTE | 2016-12-27 13:31 | CONS ---
Date/Time of Note Date/Time of Note DATE: 12/27/16 TIME: 13:29 Assessment/Plan Assessment/Plan Additional Assessment/Plan Chest x-ray was reviewed from yesterday which is essentially clear. Assessment recommendations; 1. Patient admitted for nonspecific abdominal pain discovered to have multiple liver lesions as well as bilateral alveolar infiltrates consistent with hepatic abscesses with hematogenous spread to the lungs. Clinically much improved. 2. Low probability of any malignancy. 3. Basilic vein and portal vein thrombosis. Patient on anticoagulation. Continue current treatment. Obtain repeat liver imaging. If the lesions are significantly reduced in size I would recommend discharging the patient home on combination third-generation oral cephalosporin with Flagyl at least for 2 week. Patient will also need to be on anticoagulation at least for 6 months. Consultation Date/Type/Reason Admit Date/Time Dec 19, 2016 at 21:34 Initial Consult Date 12/20/16 Type of Consultation: Pulmonary Referring Provider: KAHLIL MARTEL 24 HR Interval Summary Free Text/Dictation Patient condition stable. Complains of very scant cough. Denies any shortness breath, fever chills sputum production or abdominal pain. Denies any nausea vomiting. General examination; middle-aged woman, awake alert currently in no distress. Exam/Review of Systems Vital Signs Vitals Vital Signs Date Time Temp Pulse Resp B/P Pulse Ox O2 Delivery O2 Flow Rate FiO2 12/27/16 07:17 98.0 84 20 126/69 96 12/25/16 16:07 Room Air Intake and Output 12/26/16 12/26/16 12/27/16 15:00 23:00 07:00 Intake Total 1000 ml 1310 ml 750 ml Balance 1000 ml 1310 ml 750 ml Exam HEENT examination; supple neck, no JVD. No lymphadenopathy. Midline trachea. No thyromegaly. Patient has fair dentition. Chest examination; clear to ulceration. S1-S2 audible, no murmurs. Regular rhythm. Abdomen examination; soft, nontender. No organomegaly. Bowel sounds audible. Extremity examination; no peripheral edema. GEAR HOBBER OPERATOR examination; no focal deficit. Results Result Diagram: 12/27/16 0448 12/27/16 0448 Results 24 hrs Laboratory Tests Test 12/27/16 04:48 White Blood Count 8.0 Red Blood Count 3.21 L Hemoglobin 8.6 L Hematocrit 27.1 L Mean Corpuscular Volume 84.4 Mean Corpuscular Hemoglobin 26.8 L Mean Corpuscular Hemoglobin Concent 31.7 L Red Cell Distribution Width 17.5 H Platelet Count 620 H Mean Platelet Volume 10.2 Neutrophils % 73.4 Lymphocytes % 15.7 Monocytes % 7.8 Eosinophils % 2.0 Basophils % 0.6 Nucleated Red Blood Cells % 0.0 Neutrophils # 5.9 Lymphocytes # 1.3 Monocytes # 0.6 Eosinophils # 0.2 Basophils # 0.1 Nucleated Red Blood Cells # 0.0 Sodium Level 144 Potassium Level 3.1 L Chloride Level 113 H Carbon Dioxide Level 23 Anion Gap 11 Blood Urea Nitrogen 6 L Creatinine 1.55 H Glucose Level 88 Calcium Level 8.3 L Phosphorus Level 4.3 Magnesium Level 1.9 Total Bilirubin 0.0 L Direct Bilirubin 0.00 Indirect Bilirubin 0.0 Aspartate Amino Transf (AST/SGOT) 28 Alanine Aminotransferase (ALT/SGPT) 43 Alkaline Phosphatase 216 H Total Protein 4.5 L Albumin 3.0 L Medications Medications Current Medications Ondansetron HCl (Zofran Inj) 4 mg Q6H PRN IV NAUSEA AND/OR VOMITING Last administered on 12/26/16 17:17; Admin Dose 4 MG; Start 12/20/16 at 07:30 Acetaminophen (Tylenol Tab) 650 mg Q6H PRN PO PAIN LEVEL 1-3 OR FEVER Last administered on 12/25/16 23:01; Admin Dose 650 MG; Start 12/20/16 at 07:30 Morphine Sulfate (morphine) 4 mg Q4H PRN IV SEVERE PAIN LEVEL 7-10 Last administered on 12/23/16 08:52; Admin Dose 4 MG; Start 12/20/16 at 07:30 Enoxaparin Sodium (Lovenox) 80 mg Q12 SC Last administered on 12/26/16 22:20; Admin Dose 80 MG; Start 12/20/16 at 09:00 Amlodipine Besylate 5 mg 5 mg DAILY PO Last administered on 12/27/16 09:11; Admin Dose 5 MG; Start 12/21/16 at 09:00 Ceftriaxone Sodium 50 ml @ 100 mls/hr Q24H IVPB Last administered on 23:44; Admin Dose 100 MLS/HR; Start 12/22/16 at 23:00; Stop 6/18/17 at 23: 30 Sodium Chloride 1,000 ml @ 50 mls/hr Q20H IV Last administered on 12/26/16 11 :36; Admin Dose 50 MLS/HR; Start 12/23/16 at 10:00 Metronidazole (Flagyl 500 Mg (Pmx)) 100 ml @ 100 mls/hr Q8 IVPB Last administered on 12/27/16 05:30; Admin Dose 100 MLS/HR; Start 12/23/16 at 11:30 Pantoprazole (Protonix Iv) 40 mg DAILY@06 IV Last administered on 12/27/16 05: 30; Admin Dose 40 MG; Start 12/26/16 at 06:00 Potassium Chloride (Klor-Con 20) 60 meq ONCE ONCE PO ; Start 12/27/16 at 15:00 ; Stop 12/27/16 at 15:01 RONNY VELÁZQUEZ 16, 2017 13:31
[2016-12-27] MEDS ORDERED: POTASSIUM CHLORIDE (SR) 20 MEQ TAB PO ONE (15:00)
[2016-12-27] MEDS ORDERED: LIDOCAINE 2% (SDV) 5 ML INJ ONE (17:00)
[2016-12-27] MEDS ORDERED: MIDAZOLAM 1 MG/ML 2 ML INJ ONE (17:00)
[2016-12-27] MEDS ORDERED: PROPOFOL 20 ML ONE (17:00)
[2016-12-27 17:33] VITALS: BP 125/71; RESP 19
[2016-12-27 17:35] VITALS: BP 116/73; PULSE 86; RESP 19
[2016-12-27] MEDS ORDERED: ONDANSETRON 4 MG INJ IV PRN (18:00)
[2016-12-27] MEDS ORDERED: DIPHENHYDRAMINE 50 MG INJ IV PRN (18:00)
[2016-12-27] MEDS ORDERED: MEPERIDINE 25 MG INJ IV PRN (18:00)
[2016-12-27] MEDS ORDERED: PROCHLORPERAZINE 10 MG INJ IV PRN (18:00)
[2016-12-27] MEDS ORDERED: METOCLOPRAMIDE 10 MG INJ IV PRN (18:00)
[2016-12-27 18:18] VITALS: BP 140/70; PULSE 85; RESP 17
[2016-12-27 19:56] VITALS: BP 131/68; RESP 0; RESP 18
--- NOTE | 2016-12-27 20:57 | CONS ---
Date/Time of Note Date/Time of Note DATE: 12/27/16 TIME: 20:55 Assessment/Plan Assessment/Plan Chief Complaint/Hosp Course SUBJECTIVE: No acute changes. The patient is alert, feels good, no fevers MICROBIOLOGY: Blood culture on admission grew alpha hemolytic strep species. ANTIMICROBIALS: 1. Rocephin. 2. IV Flagyl. PHYSICAL EXAMINATION: GENERAL: This is a morbidly obese, well-developed, middle-aged woman who is awake, in no distress. HEENT: Head atraumatic, normocephalic. Sclerae anicteric. Buccal mucosa dry. NECK: Supple. CHEST: Rise symmetrical. Breath sounds diminished. HEART: S1, S2. ABDOMEN: Soft, bowel sounds present. EXTREMITIES: Without cyanosis. ASSESSMENT: 1. Alpha hemolytic strep bacteremia==> 2D ECHO neg. 2. Multiple liver lesions ?infectious etiology r/o metastatic disease. 3. Portal vein thrombosis. 4. Abnormal CT chest with multiple nodular airspace opacities. 5. Acute renal failure. 6. Anemia PLAN: Clinically improving, repeat bld cx negative, continue abx, f/u GI/ oncology rec-s. Pending final workup. Dw staff Problems: Consultation Date/Type/Reason Admit Date/Time Dec 19, 2016 at 21:34 Initial Consult Date 12/20/16 Type of Consultation: ID Referring Provider: KAHLIL MARTEL Exam/Review of Systems Vital Signs Vitals Vital Signs Date Time Temp Pulse Resp B/P Pulse Ox O2 Delivery O2 Flow Rate FiO2 12/27/16 19:56 98.1 98 0 131/68 12/27/16 18:18 97 Room Air Intake and Output 12/26/16 12/26/16 12/27/16 15:00 23:00 07:00 Intake Total 1000 ml 1310 ml 750 ml Balance 1000 ml 1310 ml 750 ml Results Result Diagram: 12/27/16 0448 12/27/16 0448 Results 24 hrs Laboratory Tests Test 12/27/16 04:48 White Blood Count 8.0 Red Blood Count 3.21 L Hemoglobin 8.6 L Hematocrit 27.1 L Mean Corpuscular Volume 84.4 Mean Corpuscular Hemoglobin 26.8 L Mean Corpuscular Hemoglobin Concent 31.7 L Red Cell Distribution Width 17.5 H Platelet Count 620 H Mean Platelet Volume 10.2 Neutrophils % 73.4 Lymphocytes % 15.7 Monocytes % 7.8 Eosinophils % 2.0 Basophils % 0.6 Nucleated Red Blood Cells % 0.0 Neutrophils # 5.9 Lymphocytes # 1.3 Monocytes # 0.6 Eosinophils # 0.2 Basophils # 0.1 Nucleated Red Blood Cells # 0.0 Sodium Level 144 Potassium Level 3.1 L Chloride Level 113 H Carbon Dioxide Level 23 Anion Gap 11 Blood Urea Nitrogen 6 L Creatinine 1.55 H Glucose Level 88 Calcium Level 8.3 L Phosphorus Level 4.3 Magnesium Level 1.9 Total Bilirubin 0.0 L Direct Bilirubin 0.00 Indirect Bilirubin 0.0 Aspartate Amino Transf (AST/SGOT) 28 Alanine Aminotransferase (ALT/SGPT) 43 Alkaline Phosphatase 216 H Total Protein 4.5 L Albumin 3.0 L Medications Medications Current Medications Ondansetron HCl (Zofran Inj) 4 mg Q6H PRN IV NAUSEA AND/OR VOMITING Last administered on 12/26/16 17:17; Admin Dose 4 MG; Start 12/20/16 at 07:30 Acetaminophen (Tylenol Tab) 650 mg Q6H PRN PO PAIN LEVEL 1-3 OR FEVER Last administered on 12/25/16 23:01; Admin Dose 650 MG; Start 12/20/16 at 07:30 Morphine Sulfate (morphine) 4 mg Q4H PRN IV SEVERE PAIN LEVEL 7-10 Last administered on 12/23/16 08:52; Admin Dose 4 MG; Start 12/20/16 at 07:30 Enoxaparin Sodium (Lovenox) 80 mg Q12 SC Last administered on 12/26/16 22:20; Admin Dose 80 MG; Start 12/20/16 at 09:00 Amlodipine Besylate 5 mg 5 mg DAILY PO Last administered on 12/27/16 09:11; Admin Dose 5 MG; Start 12/21/16 at 09:00 Ceftriaxone Sodium 50 ml @ 100 mls/hr Q24H IVPB Last administered on 23:44; Admin Dose 100 MLS/HR; Start 12/22/16 at 23:00; Stop 12/29/16 at 23: 30 Sodium Chloride 1,000 ml @ 50 mls/hr Q20H IV Last administered on 12/27/16 14 :08; Admin Dose 50 MLS/HR; Start 12/23/16 at 10:00 Metronidazole (Flagyl 500 Mg (Pmx)) 100 ml @ 100 mls/hr Q8 IVPB Last administered on 12/27/16 14:07; Admin Dose 100 MLS/HR; Start 12/23/16 at 11:30 Pantoprazole (Protonix Iv) 40 mg BID@06,18 IV Last administered on 12/27/16 18 :26; Admin Dose 40 MG; Start 12/27/16 at 18:20 NANCY HULL NP Dec 27, 2016 20:57
[2016-12-27] MEDS: ACETAMINOPHEN 325 MG TAB PO PRN (23:12)
[2016-12-27] MEDS: CEFTRIAXONE 1 GM/50 ML (PMX) 50 ML IVPB SCH (23:14)
[2016-12-28] MEDS: SOD CHLORIDE 0.9% 1,000 ML IV SCH ×2 (03:32→19:09)
[2016-12-28 05:03] LABS: ADD SCAN DIFF NO
[2016-12-28 05:15] LABS: BASOPHILS % 0.7 % (0.0-2.0); EOSINOPHILS # 0.2 10^3/ul (0.0-0.5); EOSINOPHILS % 2.9 % (0.0-7.0); HEMATOCRIT 26.9 % (37.0-47.0); HEMOGLOBIN 8.4 g/dl (12.0-16.0); LYMPHOCYTES # 1.3 10^3/ul (0.8-2.9); LYMPHOCYTES % 21.9 % (15.0-51.0); MEAN CORPUSCULAR HEMOGLOBIN 27.1 pg (29.0-33.0); MEAN CORPUSCULAR HGB CONC 31.2 g/dl (32.0-37.0); MEAN CORPUSCULAR VOLUME 86.8 fl (82.0-101.0); MEAN PLATELET VOLUME 10.4 fl (7.4-10.4); MONOCYTE # 0.5 10^3/ul (0.3-0.9); MONOCYTES % 8.5 % (0.0-11.0); NEUTROPHILS % 65.3 % (39.0-77.0); PLATELET COUNT 613 10^3/UL (140-415); RED CELL DISTRIBUTION WIDTH 18.5 % (11.5-14.5); WHITE BLOOD COUNT 6.1 10^3/ul (4.8-10.8)
[2016-12-28 05:31] LABS: MAGNESIUM 1.8 mg/dl (1.7-2.5); PHOSPHORUS 4.1 mg/dl (2.5-4.9)
[2016-12-28 05:34] LABS: ALBUMIN 2.9 g/dl (3.3-4.9); ALBUMIN/GLOBULIN RATIO 0.96; CALCIUM 8.3 mg/dl (8.4-10.2); CREATININE 1.43 mg/dl (0.44-1.00); POTASSIUM 3.7 mmol/L (3.5-5.1); TOTAL PROTEIN 5.9 g/dl (6.1-8.1)
[2016-12-28] MEDS: PANTOPRAZOLE 40 MG INJ IV SCH ×2 (06:12→19:40)
[2016-12-28] MEDS: metroNIDAZOLE 500 MG/NS (PMX) 100 ML IVPB SCH ×3 (06:12→22:44)
--- NOTE | 2016-12-28 06:55 | GILP ---
DATE OF PROCEDURE: PROCEDURE: Colonoscopy to cecum. PREMEDICATION: Monitored anesthesia care. PREPARATION: Adequate. INSTRUMENT USED: TECHNIQUE: After informed consent, with the patient/relatives understanding the procedure, its santi cations potential risks and complications, including but not limited to: allergic reaction, bleeding , perforation, infection, missed lesions and after all pertinent questions were answered to the brooklynn ent's satisfaction, the patient/relatives signed the witnessed informed consent. Following this, premedication was administered slowly IV push by under careful cardiovascular and re spiratory monitoring with pulse oximetry, automatic blood pressure and traffic monitor specialist. Once the sedativ e effect was achieved, the patient was placed in the left lateral decubitus position, digital rectal examination was performed. The colonoscope was then introduced and advanced under visual control th roughout all segments of the colon including: the rectum, sigmoid, descending colon, splenic flexure , transverse colon, hepatic flexure, ascending colon and finally reaching the cecum which was clearl y identified by transillumination, finger indentation and the ileocecal valve. Careful examination o f the mucosa of the lower gastrointestinal tract both on insertion as well as withdrawal of the inst rument disclosed the following findings: Rectal Examination: No evidence of perirectal disease, no masses. Colonic Mucosa: The colonic mucosa was unremarkable throughout. The ileocecal valve was clearly id entified and appears unremarkable. The instrument was withdrawn, reexamining the mucosa in detail. No additional abnormalities were noted with the exception of moderate sized internal hemorrhoids. The instrument was then withdrawn, the patient tolerated the procedure well and was transferred out of the Endoscopy Suite awake and in good condition to continue recovery under observation. IMPRESSION: 1. Normal colonic mucosa to the cecum. 2. Moderate size internal hemorrhoids. PLAN: The patient will be continued on the present regimen. Diet will be advanced as tolerated. F urther recommendations will depend on the patient's clinical course. Dictated By: MARTA MERIDA MS/DAR Conf#: [id number] DID#: [id number]
[2016-12-28 08:30] VITALS: BP 123/73; RESP 20
--- NOTE | 2016-12-28 08:34 | CONS ---
Date/Time of Note Date/Time of Note DATE: 12/28/16 TIME: 08:30 Consult Date/Type/Reason Admit Date/Time Dec 19, 2016 at 21:34 Initial Consult Date 12/26/16 Type of Consultation: ID Ordering Provider: KAHLIL MARTEL Subjective No overnight events. Resting comfortably in bed. Little appetite. Objective Vital Signs Date Time Temp Pulse Resp B/P Pulse Ox O2 Delivery O2 Flow Rate FiO2 12/27/16 19:56 98.1 98 18 131/68 94 12/27/16 18:18 Room Air Intake and Output 12/27/16 12/27/16 12/28/16 15:00 23:00 07:00 Intake Total 1330 ml 550 ml Balance 1330 ml 550 ml Exam NAD/A&O x 4 OP clear RRR no m/g/c CTA Anteriorly Obese, Unable to assess if hepatoslenomegaly present Trace LE edema CN 2-12 intact Results/Medications Result Diagram: 12/28/16 0443 12/28/16 0443 Results 24 hrs Laboratory Tests Test 12/28/16 04:43 White Blood Count 6.1 # Red Blood Count 3.10 L Hemoglobin 8.4 L Hematocrit 26.9 L Mean Corpuscular Volume 86.8 Mean Corpuscular Hemoglobin 27.1 L Mean Corpuscular Hemoglobin Concent 31.2 L Red Cell Distribution Width 18.5 H Platelet Count 613 H Mean Platelet Volume 10.4 Neutrophils % 65.3 Lymphocytes % 21.9 Monocytes % 8.5 Eosinophils % 2.9 Basophils % 0.7 Nucleated Red Blood Cells % 0.0 Neutrophils # 4.0 Lymphocytes # 1.3 Monocytes # 0.5 Eosinophils # 0.2 Basophils # 0.0 Nucleated Red Blood Cells # 0.0 Sodium Level 146 H Potassium Level 3.7 Chloride Level 115 H Carbon Dioxide Level 22 Anion Gap 13 Blood Urea Nitrogen 6 L Creatinine 1.43 H Glucose Level 83 Calcium Level 8.3 L Phosphorus Level 4.1 Magnesium Level 1.8 Total Bilirubin 0.0 L Direct Bilirubin 0.00 Indirect Bilirubin 0.0 Aspartate Amino Transf (AST/SGOT) 20 Alanine Aminotransferase (ALT/SGPT) 32 Alkaline Phosphatase 173 H Total Protein 5.9 #L Albumin 2.9 L Globulin 3.00 Albumin/Globulin Ratio 0.96 Medications Current Medications Ondansetron HCl (Zofran Inj) 4 mg Q6H PRN IV NAUSEA AND/OR VOMITING Last administered on 12/26/16 17:17; Admin Dose 4 MG; Start 12/20/16 at 07:30 Acetaminophen (Tylenol Tab) 650 mg Q6H PRN PO PAIN LEVEL 1-3 OR FEVER Last administered on 12/27/16 23:12; Admin Dose 650 MG; Start 12/20/16 at 07:30 Morphine Sulfate (morphine) 4 mg Q4H PRN IV SEVERE PAIN LEVEL 7-10 Last administered on 12/23/16 08:52; Admin Dose 4 MG; Start 12/20/16 at 07:30 Enoxaparin Sodium (Lovenox) 80 mg Q12 SC Last administered on 12/27/16 21:41; Admin Dose 80 MG; Start 12/20/16 at 09:00 Amlodipine Besylate 5 mg 5 mg DAILY PO Last administered on 12/27/16 09:11; Admin Dose 5 MG; Start 12/21/16 at 09:00 Ceftriaxone Sodium 50 ml @ 100 mls/hr Q24H IVPB Last administered on 23:14; Admin Dose 100 MLS/HR; Start 12/22/16 at 23:00; Stop 12/29/16 at 23: 30 Sodium Chloride 1,000 ml @ 50 mls/hr Q20H IV Last administered on 12/27/16 14 :08; Admin Dose 50 MLS/HR; Start 12/23/16 at 10:00 Metronidazole (Flagyl 500 Mg (Pmx)) 100 ml @ 100 mls/hr Q8 IVPB Last administered on 12/28/16 06:12; Admin Dose 100 MLS/HR; Start 12/23/16 at 11:30 Pantoprazole (Protonix Iv) 40 mg BID@06,18 IV Last administered on 12/28/16 06 :12; Admin Dose 40 MG; Start 12/27/16 at 18:20 Assessment/Plan Chief Complaint/Hosp Course Pt with h/o abdominal pain with noted liver lesions. Pt has B symptoms including fevers, night sweats, and weight loss. Positive blood cultures-alpha hemolytic strep. Portal vein thrombosis. On Lovenox. Overall, improving. F/u images of livers. If lesions not responding to antibiotics, then consider liver biopsy. Problems: CLAYTON SPENCE Dec 28, 2016 08:34
[2016-12-28] MEDS: ENOXAPARIN 80 MG/0.8 ML SYG SC SCH ×2 (09:00→21:46)
--- NOTE | 2016-12-28 10:09 | PN ---
Date/Time of Note Date/Time of Note DATE: 12/28/16 TIME: 10:09 Assessment/Plan VTE Prophylaxis VTE Prophylaxis Intervention: LMWH Lines/Catheters IV [facility] Peripheral IV Urinary Cath still in place: No Assessment/Plan Assessment/Plan 1. Abdominal pain: likely 2/2 liver lesions: improved 2. Extensive portal vein thrombosis and right hepatic vein thrombosis 3. Multiple liver lesions concerning for metastatic cancer with Transaminitis 4. Pulmonary nodules and right-sided infiltrates 5. Uterine Leioma 6. HTN: controlled 7. Iron deficiency anemia s/p transfusion and on Iron therapy 8. Alpha hemolytic strep bacteremia rule out contaminant 9. Elevated CA 125 10. Probable UTI 11. R basilic vein thrombus 12. GRICELDA 2/2 ATN from contrast versus Vanco: stabilizing / recovery phase PLAN * f/u repeat uSS from today. ?MRI * Colonoscopy showed no masses See discussion below. * Patient's clinical picture is suggestive of metastatic disease. However oncology feels this may also be infectious; as patient liver enzymes have improved with antibiotic therapy. Also she did have some bacteremia that seems is improving. As such, she will benefit from further hepatic imaging to adequately define the lesions seen there. * Radiology will not proceed with liver biopsy without adequate imaging first. Pulmonary also feels that pursuing hepatic lesions will give more yield and is safer than attempting to pursue pulmonary lesions. * This plan was discussed with hematology oncology and they are in agreement as well. * Continue IV iron therapy * Continue treatment dose anticoagulation * Continue antibiotics per ID * Gentle hydration * Supportive care Subjective 24 Hr Interval Summary Free Text/Dictation Patient seen and examined. s/p colonoscopy yesterday IMPRESSION: 1. Normal colonic mucosa to the cecum. 2. Moderate size internal hemorrhoids. Exam/Review of Systems Vital Signs Vitals Vital Signs Date Time Temp Pulse Resp B/P Pulse Ox O2 Delivery O2 Flow Rate FiO2 12/28/16 08:30 98.5 85 20 123/73 12/27/16 19:56 94 12/27/16 18:18 Room Air Intake and Output 12/27/16 12/27/16 12/28/16 14:59 22:59 06:59 Intake Total 1330 ml 550 ml Balance 1330 ml 550 ml Exam Constitutional: alert, oriented, warm, ambulant Psych: nl mood/affect Head: normocephalic Neck: supple Respiratory: clear to auscultation, normal air movement Cardiovascular: regular rate and rhythm Gastrointestinal: soft, tender mildly LLQ and RUQ Musculoskeletal: nl extremities to inspection Neurological: OPERATIONS VOCATIONAL INSTRUCTOR II-XII intact, nl mental status, nl speech Results Result Diagram: 12/28/1644212/28/16442 Results 24 hrs Laboratory Tests Test 12/28/16 04:43 White Blood Count 6.1 # Red Blood Count 3.10 L Hemoglobin 8.4 L Hematocrit 26.9 L Mean Corpuscular Volume 86.8 Mean Corpuscular Hemoglobin 27.1 L Mean Corpuscular Hemoglobin Concent 31.2 L Red Cell Distribution Width 18.5 H Platelet Count 613 H Mean Platelet Volume 10.4 Neutrophils % 65.3 Lymphocytes % 21.9 Monocytes % 8.5 Eosinophils % 2.9 Basophils % 0.7 Nucleated Red Blood Cells % 0.0 Neutrophils # 4.0 Lymphocytes # 1.3 Monocytes # 0.5 Eosinophils # 0.2 Basophils # 0.0 Nucleated Red Blood Cells # 0.0 Sodium Level 146 H Potassium Level 3.7 Chloride Level 115 H Carbon Dioxide Level 22 Anion Gap 13 Blood Urea Nitrogen 6 L Creatinine 1.43 H Glucose Level 83 Calcium Level 8.3 L Phosphorus Level 4.1 Magnesium Level 1.8 Total Bilirubin 0.0 L Direct Bilirubin 0.00 Indirect Bilirubin 0.0 Aspartate Amino Transf (AST/SGOT) 20 Alanine Aminotransferase (ALT/SGPT) 32 Alkaline Phosphatase 173 H Total Protein 5.9 #L Albumin 2.9 L Globulin 3.00 Albumin/Globulin Ratio 0.96 Medications Medications Current Medications Ondansetron HCl (Zofran Inj) 4 mg Q6H PRN IV NAUSEA AND/OR VOMITING Last administered on 12/26/16 17:17; Admin Dose 4 MG; Start 12/20/16 at 07:30 Acetaminophen (Tylenol Tab) 650 mg Q6H PRN PO PAIN LEVEL 1-3 OR FEVER Last administered on 12/27/16 23:12; Admin Dose 650 MG; Start 12/20/16 at 07:30 Morphine Sulfate (morphine) 4 mg Q4H PRN IV SEVERE PAIN LEVEL 7-10 Last administered on 12/23/16 08:52; Admin Dose 4 MG; Start 12/20/16 at 07:30 Enoxaparin Sodium (Lovenox) 80 mg Q12 SC Last administered on 12/27/16 21:41; Admin Dose 80 MG; Start 12/20/16 at 09:00 Amlodipine Besylate 5 mg 5 mg DAILY PO Last administered on 12/27/16 09:11; Admin Dose 5 MG; Start 12/21/16 at 09:00 Ceftriaxone Sodium 50 ml @ 100 mls/hr Q24H IVPB Last administered on 23:14; Admin Dose 100 MLS/HR; Start 12/22/16 at 23:00; Stop 12/29/16 at 23: 30 Sodium Chloride 1,000 ml @ 50 mls/hr Q20H IV Last administered on 12/27/16 14 :08; Admin Dose 50 MLS/HR; Start 12/23/16 at 10:00 Metronidazole (Flagyl 500 Mg (Pmx)) 100 ml @ 100 mls/hr Q8 IVPB Last administered on 12/28/16 06:12; Admin Dose 100 MLS/HR; Start 12/23/16 at 11:30 Pantoprazole (Protonix Iv) 40 mg BID@06,18 IV Last administered on 12/28/16 06 :12; Admin Dose 40 MG; Start 12/27/16 at 18:20 KAHLIL MARTEL Dec 28, 2016 10:09
[2016-12-28] MEDS: AMLODIPINE 5 MG TAB PO SCH (10:16)
--- NOTE | 2016-12-28 10:23 | CONS ---
Date/Time of Note Date/Time of Note DATE: 12/28/16 TIME: 10:20 Consult Date/Type/Reason Admit Date/Time Dec 19, 2016 at 21:34 Initial Consult Date 12/26/16 Type of Consultation: neph Ordering Provider: KAHLIL MARTEL Subjective The patient is stable. She is sp EGD and colonoscopy yesterday. No other events noted. OBJECTIVE: HEENT: Head is normocephalic. NECK: Supple. HEART: Regular rate. LUNGS: Showed diminished breath sounds at the base. ABDOMEN: Soft, nontender to palpation. No rebound or guarding. EXTREMITIES: Negative for clubbing or cyanosis. No edema. DERMATOLOGIC: No rashes. MUSCULOSKELETAL: Have no joint effusion. NEUROLOGIC: No change in exam. MEDICATIONS: The patient's medications have been reviewed. Objective Vital Signs Date Time Temp Pulse Resp B/P Pulse Ox O2 Delivery O2 Flow Rate FiO2 12/28/16 08:30 98.5 85 20 123/73 12/27/16 19:56 94 12/27/16 18:18 Room Air Intake and Output 12/27/16 12/27/16 12/28/16 15:00 23:00 07:00 Intake Total 1330 ml 550 ml Balance 1330 ml 550 ml Results/Medications Result Diagram: 12/28/16 0443 12/28/16 0443 Results 24 hrs Laboratory Tests Test 12/28/16 04:43 White Blood Count 6.1 # Red Blood Count 3.10 L Hemoglobin 8.4 L Hematocrit 26.9 L Mean Corpuscular Volume 86.8 Mean Corpuscular Hemoglobin 27.1 L Mean Corpuscular Hemoglobin Concent 31.2 L Red Cell Distribution Width 18.5 H Platelet Count 613 H Mean Platelet Volume 10.4 Neutrophils % 65.3 Lymphocytes % 21.9 Monocytes % 8.5 Eosinophils % 2.9 Basophils % 0.7 Nucleated Red Blood Cells % 0.0 Neutrophils # 4.0 Lymphocytes # 1.3 Monocytes # 0.5 Eosinophils # 0.2 Basophils # 0.0 Nucleated Red Blood Cells # 0.0 Sodium Level 146 H Potassium Level 3.7 Chloride Level 115 H Carbon Dioxide Level 22 Anion Gap 13 Blood Urea Nitrogen 6 L Creatinine 1.43 H Glucose Level 83 Calcium Level 8.3 L Phosphorus Level 4.1 Magnesium Level 1.8 Total Bilirubin 0.0 L Direct Bilirubin 0.00 Indirect Bilirubin 0.0 Aspartate Amino Transf (AST/SGOT) 20 Alanine Aminotransferase (ALT/SGPT) 32 Alkaline Phosphatase 173 H Total Protein 5.9 #L Albumin 2.9 L Globulin 3.00 Albumin/Globulin Ratio 0.96 Medications Current Medications Ondansetron HCl (Zofran Inj) 4 mg Q6H PRN IV NAUSEA AND/OR VOMITING Last administered on 12/26/16 17:17; Admin Dose 4 MG; Start 12/20/16 at 07:30 Acetaminophen (Tylenol Tab) 650 mg Q6H PRN PO PAIN LEVEL 1-3 OR FEVER Last administered on 12/27/16 23:12; Admin Dose 650 MG; Start 12/20/16 at 07:30 Morphine Sulfate (morphine) 4 mg Q4H PRN IV SEVERE PAIN LEVEL 7-10 Last administered on 12/23/16 08:52; Admin Dose 4 MG; Start 12/20/16 at 07:30 Enoxaparin Sodium (Lovenox) 80 mg Q12 SC Last administered on 12/27/16 21:41; Admin Dose 80 MG; Start 12/20/16 at 09:00 Amlodipine Besylate 5 mg 5 mg DAILY PO Last administered on 12/27/16 09:11; Admin Dose 5 MG; Start 12/21/16 at 09:00 Ceftriaxone Sodium 50 ml @ 100 mls/hr Q24H IVPB Last administered on 23:14; Admin Dose 100 MLS/HR; Start 12/22/16 at 23:00; Stop 12/29/16 at 23: 30 Sodium Chloride 1,000 ml @ 50 mls/hr Q20H IV Last administered on 12/27/16 14 :08; Admin Dose 50 MLS/HR; Start 12/23/16 at 10:00 Metronidazole (Flagyl 500 Mg (Pmx)) 100 ml @ 100 mls/hr Q8 IVPB Last administered on 12/28/16 06:12; Admin Dose 100 MLS/HR; Start 12/23/16 at 11:30 Pantoprazole (Protonix Iv) 40 mg BID@06,18 IV Last administered on 12/28/16 06 :12; Admin Dose 40 MG; Start 12/27/16 at 18:20 Assessment/Plan Chief Complaint/Hosp Course ASSESSMENT AND PLAN: 1. Nonoliguric acute kidney injury, with a previous baseline creatinine of 0.8 mg/dL. Etiology is secondary to contrast-associated nephropathy. The patient' s renal function is slowly improving. Currently EGFR is around 38 mL per minute. At this point will continue the current treatment plan, supportive care , renally dose all meds. There is no immediate contraindication for MRI with gadolinium at this time, as the patient's renal function has been recovering and GFR levels are over 30. Otherwise, continue treatment plan, supportive care , renally dose all meds, avoid nephrotoxins. 2. Hypokalemia. Repleted potassium chloride. 3. Hypomagnesemia. Resolved. 4. Anemia. Continue to monitor hemoglobin and hematocrit levels. 5. Mineral bone disorder. Continue to monitor calcium and phosphorus levels. 6. Portal vein thrombosis. Continue with the current anticoagulation. 7. Multiple liver lesions concerning for possible metastatic disease. Workup is ongoing. The patient is sp EGD and colonoscopy. 8. Bacteremia. Continue IV antibiotics. 9. Hypertension. Continue the current blood pressure regimen. Problems: FERNANDO HAYWARD MD Dec 28, 2016 10:23
--- NOTE | 2016-12-28 12:12 | RADRPT ---
PROCEDURE: US Abdomen Limited . CLINICAL INDICATION: Abdominal pain, liver lesions. Follow-up. TECHNIQUE: Multiple real-time images were acquired of the patient's right upper quadrant abdomen u tilizing a high resolution transducer. COMPARISON: December 20, 2016 FINDINGS: A 2.7 x 1.8 x 2.5 cm heterogeneously hypoechoic nodular lesion in the right liver is observed. This lesion appears smaller than on prior exam (previously 4.5 cm). An additional 2.7 x 2.3 x 2.6 cm hete rogeneously hypoechoic, nodular lesion in the right liver is observed. The gallbladder is filled wi th a moderate amount of bile. No shadowing echogenic stones or masses are seen in the gallbladder. The gallbladder wall is not thickened at 1.9 mm. No pericholecystic fluid is noted. The common bile duct measures 3.2 mm in diameter. The visualized portions of the proximal pancreas are unremarkabl e. The tail of the pancreas is not well visualized Antegrade flow is seen in the portal vein. Right kidney measures 11.3 cm. Right kidney demonstrates a normal echogenicity. 1.3 cm simple cyst is seen in the right kidney. No hydronephrosis, masses or stones are noted. IMPRESSION: 2.7 cm heterogeneously hypoechoic nodular lesion in the right liver. This lesion measures smaller than on prior exam (previously 4.5 cm). However, the appearance of decrease in size could be related to differences ultrasound almond blancher operator technique. This lesion could reflect hepatic abscess versus soft tissue nodule. Malignancy is not excluded. Additional 2.7 cm similar appearing lesion in the right liver. This lesion was not distinctly visua lized on the prior exam and may be new. This could reflect an additional hepatic abscess versus soft tissue nodule. Malignancy is not excluded. Further characterization of the liver lesions with triple phase liver protocol CT or MRI is recommen ded. 1.3 cm cyst in the right kidney. Tail of the pancreas not well visualized. If characterization of this structure is needed repeat exa m or CT/MRI is recommended. RPTAT: AA .Willi Johns MD, Date Time Electronically viewed and signed by .Willi Johns MD, on 12/28/2016 12:12 .P/
--- NOTE | 2016-12-28 19:13 | RADRPT ---
PROCEDURE: MRI abdomen with contrast CLINICAL INDICATION: Liver lesions TECHNIQUE: An MRI of the abdomen was performed utilizing a high field MRI scanner with the following pulsed seq uences: Axial T2 fast spin-echo, axial T2 non-fat saturation fast spin-echo, axial T1 gradient echo in-phase and opposed-phase. Coronal BFFE T2-weighted images and coronal T2 fat saturation images we re obtained. Single coronal MRCP image was also obtained. In addition, axial T1 gradient-echo post-p hase fat saturation pre- and post-contrast images were obtained after the uncomplicated intravenous administration of 10 mL of gadolinium. Images were obtained at 20 seconds, 1 minute, 3 minutes, 5 m inutes and 8 minutes. Diffusion-weighted images and ADC maps were obtained. COMPARISON: Noncontrast MRI 12/24/[address] abdomen 11/18/2016 FINDINGS: Hepatomegaly is seen involving the liver with generalized loss of signal on the [id number] gradien t images consistent with fatty infiltration. There is portal vein thrombus seen involving the main portal vein extending extensive the throughout the intrahepatic portal vasculature. There are multi focal nodular areas of T2 elevated signal seen diffusely throughout the majority of the right hepati c lobe and mildly involving the left hepatic lobe. The largest discrete lesion measures 3.9 x 2.0 c m on series 4, image 13 and the is present on the prior exam. These demonstrate some mild hypo enha ncement on the arterial phase images with retention of contrast on the delayed phase however they do not have significant peripheral nodular enhancement on the early phase imaging. There is no biliar y ductal dilatation. Bilateral small layering pleural effusions are present. There is mild cardiomegaly. Trace ascites is seen within the abdomen. 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 The adrenal glands unremarkable. The spleen is within normal limits. The pancreas demonstrates uniform signal intensity without surrounding infla mmatory changes. There is no evidence of bowel obstruction. There are no gross enlarged lymph node s. There is unremarkable. Degenerative changes are seen in the lumbar spine. IMPRESSION: Numerous nodular areas of elevated T2 signal in differential enhancement are seen within the liver w hich correspond the previously seen abnormalities and these appear to retain contrast on the delayed phase images. These could represent multi focal atypical hemangioma over the presence of hepatic m ass or metastatic disease is not fully excluded. This can be further assessed with PET scan to eval uate for any hypermetabolism of these lesions. Biopsy may be considered as clinically indicated. There is hepatic enlargement with fatty infiltration. There is diffuse portal vein thrombus present. Horseshoe kidney. Small layering bilateral pleural effusions with mild ascites. RPTAT: AA .Magalie Stevens MD, MD Date Time Electronically viewed and signed by .Magalie Stevens MD, MD on 12/28/2016 17:45 .J/
--- NOTE | 2016-12-28 20:43 | CONS ---
Date/Time of Note Date/Time of Note DATE: 12/28/16 TIME: 16:36 Assessment/Plan Assessment/Plan Chief Complaint/Hosp Course ID PROGRESS NOTE ABX DAY #10 => 1. Rocephin. 2. IV Flagyl. 24H INTERVAL SUMMARY * Patient is off the floor; hence ROS & exam deferred * Andria reviewed, case D/W RN * No fevers, WBC down, several BMs over past 48 hours * MICROBIOLOGY: Blood culture on admission grew alpha hemolytic strep species. * s/p [place] 12/27/16: 1. Normal colonic mucosa to the cecum. 2. Moderate size internal hemorrhoids. ID ASSESSMENT: 51 yo F admitted with: 1. Alpha hemolytic strep bacteremia==> 2D ECHO neg. 2. Multiple liver lesions ?infectious etiology r/o metastatic disease. 3. Portal vein thrombosis. 4. Abnormal CT chest with multiple nodular airspace opacities. 5. Acute renal failure. 6. Anemia ABX ALLERGIES: KNDA INVASIVES: *PIV, CURRENT ABX: ABX DAY # #10 => 1. Rocephin. 2. IV Flagyl. ID RECOMMENDATIONS: 1. Continue current ABX = needs at least 14 days possible longer per clinical course 2. ID team w/f/u tomorrow as patient is currently off the floor x several hours . . Problems: Consultation Date/Type/Reason Admit Date/Time Dec 19, 2016 at 21:34 Initial Consult Date 12/26/16 Type of Consultation: ID Referring Provider: KAHLIL MARTEL Exam/Review of Systems Vital Signs Vitals Vital Signs Date Time Temp Pulse Resp B/P Pulse Ox O2 Delivery O2 Flow Rate FiO2 12/28/16 08:30 98.5 85 20 123/73 12/27/16 19:56 94 12/27/16 18:18 Room Air Intake and Output 12/27/16 12/27/16 12/28/16 15:00 23:00 07:00 Intake Total 1330 ml 550 ml Balance 1330 ml 550 ml Results Result Diagram: 12/28/16 0443 12/28/16 0443 Results 24 hrs Laboratory Tests Test 12/28/16 04:43 White Blood Count 6.1 # Red Blood Count 3.10 L Hemoglobin 8.4 L Hematocrit 26.9 L Mean Corpuscular Volume 86.8 Mean Corpuscular Hemoglobin 27.1 L Mean Corpuscular Hemoglobin Concent 31.2 L Red Cell Distribution Width 18.5 H Platelet Count 613 H Mean Platelet Volume 10.4 Neutrophils % 65.3 Lymphocytes % 21.9 Monocytes % 8.5 Eosinophils % 2.9 Basophils % 0.7 Nucleated Red Blood Cells % 0.0 Neutrophils # 4.0 Lymphocytes # 1.3 Monocytes # 0.5 Eosinophils # 0.2 Basophils # 0.0 Nucleated Red Blood Cells # 0.0 Sodium Level 146 H Potassium Level 3.7 Chloride Level 115 H Carbon Dioxide Level 22 Anion Gap 13 Blood Urea Nitrogen 6 L Creatinine 1.43 H Glucose Level 83 Calcium Level 8.3 L Phosphorus Level 4.1 Magnesium Level 1.8 Total Bilirubin 0.0 L Direct Bilirubin 0.00 Indirect Bilirubin 0.0 Aspartate Amino Transf (AST/SGOT) 20 Alanine Aminotransferase (ALT/SGPT) 32 Alkaline Phosphatase 173 H Total Protein 5.9 #L Albumin 2.9 L Globulin 3.00 Albumin/Globulin Ratio 0.96 Medications Medications Current Medications Ondansetron HCl (Zofran Inj) 4 mg Q6H PRN IV NAUSEA AND/OR VOMITING Last administered on 12/26/16 17:17; Admin Dose 4 MG; Start 12/20/16 at 07:30 Acetaminophen (Tylenol Tab) 650 mg Q6H PRN PO PAIN LEVEL 1-3 OR FEVER Last administered on 12/27/16 23:12; Admin Dose 650 MG; Start 12/20/16 at 07:30 Morphine Sulfate (morphine) 4 mg Q4H PRN IV SEVERE PAIN LEVEL 7-10 Last administered on 12/23/16 08:52; Admin Dose 4 MG; Start 12/20/16 at 07:30 Enoxaparin Sodium (Lovenox) 80 mg Q12 SC Last administered on 12/28/16 09:00; Admin Dose 80 MG; Start 12/20/16 at 09:00 Amlodipine Besylate 5 mg 5 mg DAILY PO Last administered on 12/28/16 10:16; Admin Dose 5 MG; Start 12/21/16 at 09:00 Ceftriaxone Sodium 50 ml @ 100 mls/hr Q24H IVPB Last administered on 23:14; Admin Dose 100 MLS/HR; Start 12/22/16 at 23:00; Stop 12/29/16 at 23: 30 Sodium Chloride 1,000 ml @ 50 mls/hr Q20H IV Last administered on 12/27/16 14 :08; Admin Dose 50 MLS/HR; Start 12/23/16 at 10:00 Metronidazole (Flagyl 500 Mg (Pmx)) 100 ml @ 100 mls/hr Q8 IVPB Last administered on 12/28/16 14:01; Admin Dose 100 MLS/HR; Start 12/23/16 at 11:30 Pantoprazole (Protonix Iv) 40 mg BID@06,18 IV Last administered on 12/28/16 06 :12; Admin Dose 40 MG; Start 12/27/16 at 18:20 LASHONDA PATTERSON NP Dec 28, 2016 16:36
[2016-12-28 21:21] VITALS: BP 132/66; RESP 20
[2016-12-28] MEDS: CEFTRIAXONE 1 GM/50 ML (PMX) 50 ML IVPB SCH (21:42)
[2016-12-29] MEDS: PANTOPRAZOLE 40 MG INJ IV SCH ×2 (06:21→18:46)
[2016-12-29] MEDS: metroNIDAZOLE 500 MG/NS (PMX) 100 ML IVPB SCH ×3 (06:21→21:20)
[2016-12-29 06:42] LABS: ADD SCAN DIFF NO
[2016-12-29 06:58] LABS: BASOPHIL # 0.1 10^3/ul (0.0-0.1); BASOPHILS % 0.8 % (0.0-2.0); EOSINOPHILS # 0.2 10^3/ul (0.0-0.5); EOSINOPHILS % 3.5 % (0.0-7.0); HEMATOCRIT 29.4 % (37.0-47.0); LYMPHOCYTES # 1.2 10^3/ul (0.8-2.9); LYMPHOCYTES % 19.5 % (15.0-51.0); MEAN CORPUSCULAR HEMOGLOBIN 26.5 pg (29.0-33.0); MEAN CORPUSCULAR HGB CONC 30.6 g/dl (32.0-37.0); MEAN CORPUSCULAR VOLUME 86.7 fl (82.0-101.0); MEAN PLATELET VOLUME 10.6 fl (7.4-10.4); MONOCYTE # 0.5 10^3/ul (0.3-0.9); MONOCYTES % 8.3 % (0.0-11.0); NEUTROPHILS % 67.2 % (39.0-77.0); PLATELET COUNT 649 10^3/UL (140-415); RED BLOOD COUNT 3.39 10^6/ul (4.20-5.40); RED CELL DISTRIBUTION WIDTH 18.7 % (11.5-14.5)
[2016-12-29 07:04] LABS: CALCIUM 8.2 mg/dl (8.4-10.2); CREATININE 1.4 mg/dl (0.44-1.00); MAGNESIUM 1.6 mg/dl (1.7-2.5); POTASSIUM 3.2 mmol/L (3.5-5.1)
[2016-12-29 08:17] VITALS: BP 127/67; RESP 18
--- NOTE | 2016-12-29 08:37 | CONS ---
Date/Time of Note Date/Time of Note DATE: 12/29/16 TIME: 08:35 Consult Date/Type/Reason Admit Date/Time Dec 19, 2016 at 21:34 Initial Consult Date 12/26/16 Type of Consultation: ID Ordering Provider: KAHLIL MARTEL Subjective No overnight events. No nausea. Beginning to eat more. Denies abdominal pain. No fevers or chills. Objective Vital Signs Date Time Temp Pulse Resp B/P Pulse Ox O2 Delivery O2 Flow Rate FiO2 12/29/16 08:17 98.4 80 18 127/67 100 12/27/16 18:18 Room Air Intake and Output 12/28/16 12/28/16 12/29/16 15:00 23:00 07:00 Intake Total 200 ml 1460 ml 600 ml Output Total 900 ml 1050 ml Balance 200 ml 560 ml -450 ml Exam NAD/A&Ox4 OP clear NCAT, PERRLA, Anicteric RRR no m/g/r CTA Obese trace LE edema Results/Medications Result Diagram: 12/29/16 0503 12/29/16 0503 Results 24 hrs Laboratory Tests Test 12/29/16 05:03 White Blood Count 6.0 Red Blood Count 3.39 L Hemoglobin 9.0 L Hematocrit 29.4 L Mean Corpuscular Volume 86.7 Mean Corpuscular Hemoglobin 26.5 L Mean Corpuscular Hemoglobin Concent 30.6 L Red Cell Distribution Width 18.7 H Platelet Count 649 H Mean Platelet Volume 10.6 H Neutrophils % 67.2 Lymphocytes % 19.5 Monocytes % 8.3 Eosinophils % 3.5 Basophils % 0.8 Nucleated Red Blood Cells % 0.0 Neutrophils # 4.0 Lymphocytes # 1.2 Monocytes # 0.5 Eosinophils # 0.2 Basophils # 0.1 Nucleated Red Blood Cells # 0.0 Sodium Level 141 Potassium Level 3.2 L Chloride Level 109 Carbon Dioxide Level 24 Anion Gap 11 Blood Urea Nitrogen 6 L Creatinine 1.40 H Glucose Level 80 Calcium Level 8.2 L Magnesium Level 1.6 L Medications Current Medications Ondansetron HCl (Zofran Inj) 4 mg Q6H PRN IV NAUSEA AND/OR VOMITING Last administered on 12/26/16t 17:17; Admin Dose 4 MG; Start 12/20/16 at 07:30 Acetaminophen (Tylenol Tab) 650 mg Q6H PRN PO PAIN LEVEL 1-3 OR FEVER Last administered on 12/27/16 23:12; Admin Dose 650 MG; Start 12/20/16 at 07:30 Morphine Sulfate (morphine) 4 mg Q4H PRN IV SEVERE PAIN LEVEL 7-10 Last administered on 12/23/16 08:52; Admin Dose 4 MG; Start 12/20/16 at 07:30 Enoxaparin Sodium (Lovenox) 80 mg Q12 SC Last administered on 12/28/16 21:46; Admin Dose 80 MG; Start 12/20/16 at 09:00 Amlodipine Besylate 5 mg 5 mg DAILY PO Last administered on 12/28/16 10:16; Admin Dose 5 MG; Start 12/21/16 at 09:00 Ceftriaxone Sodium 50 ml @ 100 mls/hr Q24H IVPB Last administered on 21:42; Admin Dose 100 MLS/HR; Start 12/22/16 at 23:00; Stop 12/29/16 at 23: 30 Sodium Chloride 1,000 ml @ 50 mls/hr Q20H IV Last administered on 12/28/16 19 :09; Admin Dose 50 MLS/HR; Start 12/23/16 at 10:00 Metronidazole (Flagyl 500 Mg (Pmx)) 100 ml @ 100 mls/hr Q8 IVPB Last administered on 12/29/16 06:21; Admin Dose 100 MLS/HR; Start 12/23/16 at 11:30 Pantoprazole (Protonix Iv) 40 mg BID@06,18 IV Last administered on 12/29/16 06 :21; Admin Dose 40 MG; Start 12/27/16 at 18:20 Assessment/Plan Chief Complaint/Hosp Course Pt with h/o abdominal pain with noted liver lesions. Pt has B symptoms including fevers, night sweats, and weight loss. Positive blood cultures-alpha hemolytic strep. Portal vein thrombosis. On Lovenox. Overall, improving. F/u images of livers. If lesions not responding to antibiotics, then consider liver biopsy. -as above. Problems: CLAYTON SPENCE Dec 29, 2016 08:37
[2016-12-29] MEDS: AMLODIPINE 5 MG TAB PO SCH (08:56)
[2016-12-29] MEDS: ENOXAPARIN 80 MG/0.8 ML SYG SC SCH (09:00)
--- NOTE | 2016-12-29 09:32 | CONS ---
Date/Time of Note Date/Time of Note DATE: 12/29/16 TIME: 09:31 Consult Date/Type/Reason Admit Date/Time Dec 19, 2016 at 21:34 Initial Consult Date 12/26/16 Type of Consultation: neph Ordering Provider: KAHLIL MARTEL Subjective The patient is stable. She is sp EGD and colonoscopy friday and mri yesterday. results noted. No other events noted. OBJECTIVE: HEENT: Head is normocephalic. NECK: Supple. HEART: Regular rate. LUNGS: Showed diminished breath sounds at the base. ABDOMEN: Soft, nontender to palpation. No rebound or guarding. EXTREMITIES: Negative for clubbing or cyanosis. No edema. DERMATOLOGIC: No rashes. MUSCULOSKELETAL: Have no joint effusion. NEUROLOGIC: No change in exam. MEDICATIONS: The patient's medications have been reviewed. Objective Vital Signs Date Time Temp Pulse Resp B/P Pulse Ox O2 Delivery O2 Flow Rate FiO2 12/29/16 08:17 98.4 80 18 127/67 100 12/27/16 18:18 Room Air Intake and Output 12/28/16 12/28/16 12/29/16 14:59 22:59 06:59 Intake Total 100 ml 1560 ml 600 ml Output Total 900 ml 1050 ml Balance 100 ml 660 ml -450 ml Results/Medications Result Diagram: 12/29/16 0503 12/29/16 0503 Results 24 hrs Laboratory Tests Test 12/29/16 05:03 White Blood Count 6.0 Red Blood Count 3.39 L Hemoglobin 9.0 L Hematocrit 29.4 L Mean Corpuscular Volume 86.7 Mean Corpuscular Hemoglobin 26.5 L Mean Corpuscular Hemoglobin Concent 30.6 L Red Cell Distribution Width 18.7 H Platelet Count 649 H Mean Platelet Volume 10.6 H Neutrophils % 67.2 Lymphocytes % 19.5 Monocytes % 8.3 Eosinophils % 3.5 Basophils % 0.8 Nucleated Red Blood Cells % 0.0 Neutrophils # 4.0 Lymphocytes # 1.2 Monocytes # 0.5 Eosinophils # 0.2 Basophils # 0.1 Nucleated Red Blood Cells # 0.0 Sodium Level 141 Potassium Level 3.2 L Chloride Level 109 Carbon Dioxide Level 24 Anion Gap 11 Blood Urea Nitrogen 6 L Creatinine 1.40 H Glucose Level 80 Calcium Level 8.2 L Magnesium Level 1.6 L Medications Current Medications Ondansetron HCl (Zofran Inj) 4 mg Q6H PRN IV NAUSEA AND/OR VOMITING Last administered on 12/26/16 17:17; Admin Dose 4 MG; Start 12/20/16 at 07:30 Acetaminophen (Tylenol Tab) 650 mg Q6H PRN PO PAIN LEVEL 1-3 OR FEVER Last administered on 12/27/16 23:12; Admin Dose 650 MG; Start 12/20/16 at 07:30 Morphine Sulfate (morphine) 4 mg Q4H PRN IV SEVERE PAIN LEVEL 7-10 Last administered on 12/23/16 08:52; Admin Dose 4 MG; Start 12/20/16 at 07:30 Enoxaparin Sodium (Lovenox) 80 mg Q12 SC Last administered on 12/29/16 09:00; Admin Dose 80 MG; Start 12/20/16 at 09:00 Amlodipine Besylate 5 mg 5 mg DAILY PO Last administered on 12/29/16 08:56; Admin Dose 5 MG; Start 12/21/16 at 09:00 Ceftriaxone Sodium 50 ml @ 100 mls/hr Q24H IVPB Last administered on 21:42; Admin Dose 100 MLS/HR; Start 12/22/16 at 23:00; Stop 12/29/16 at 23: 30 Sodium Chloride 1,000 ml @ 50 mls/hr Q20H IV Last administered on 12/28/16 19 :09; Admin Dose 50 MLS/HR; Start 12/23/16 at 10:00 Metronidazole (Flagyl 500 Mg (Pmx)) 100 ml @ 100 mls/hr Q8 IVPB Last administered on 12/29/16 06:21; Admin Dose 100 MLS/HR; Start 12/23/16 at 11:30 Pantoprazole (Protonix Iv) 40 mg BID@18 IV Last administered on 12/29/16 06 :21; Admin Dose 40 MG; Start 12/27/16 at 18:20 Assessment/Plan Chief Complaint/Hosp Course ASSESSMENT AND PLAN: 1. Nonoliguric acute kidney injury, with a previous baseline creatinine of 0.8 mg/dL. Etiology is secondary to contrast-associated nephropathy. The patient' s renal function is slowly improving. Currently EGFR is around 38 mL per minute. At this point will continue the current treatment plan, supportive care , renally dose all meds. continue treatment plan, supportive care, renally dose all meds, avoid nephrotoxins. 2. Hypokalemia. Repleted potassium chloride. 3. Hypomagnesemia. Resolved. 4. Anemia. Continue to monitor hemoglobin and hematocrit levels. 5. Mineral bone disorder. Continue to monitor calcium and phosphorus levels. 6. Portal vein thrombosis. Continue with the current anticoagulation. 7. Multiple liver lesions concerning for possible metastatic disease. Workup is ongoing. The patient is sp EGD and colonoscopy. 8. Bacteremia. Continue IV antibiotics. 9. Hypertension. Continue the current blood pressure regimen. Problems: FERNANDO HAYWARD MD Dec 29, 2016 09:32
--- NOTE | 2016-12-29 09:40 | PN ---
Date/Time of Note Date/Time of Note DATE: 12/29/16 TIME: 09:32 Assessment/Plan VTE Prophylaxis VTE Prophylaxis Intervention: LMWH Lines/Catheters IV [facility]ter [facility]from [facility] Peripheral IV Urinary Cath still in place: No Assessment/Plan Assessment/Plan 1. Abdominal pain: likely 2/2 liver lesions: resolved 2. Extensive portal vein thrombosis and right hepatic vein thrombosis 3. Multiple liver lesions : differentials are infection (abscesses vs metastatic) * IR will not biopsy unless we have MRI with contrast * MRI with contrast was delayed 2/2 poor renal function but was done 12/28/16 * Transaminitis has all but resolved with antibiotics favoring an infectious etiology 4. Pulmonary nodules and right-sided infiltrates * Nodules were seen on CT / but last CXR showed clear lungs 5. Uterine Leioma: likely incidental 6. HTN: controlled 7. Iron deficiency anemia s/p PRBC and Iron transfusion 8. S/p Alpha hemolytic strep bacteremia rule out contaminant 9. Elevated CA 125 10. Probable UTI 11. RUE DVT 12. GRICELDA 2/2 ATN from contrast versus Vanco: stabilizing / recovery phase PLAN * MRI still non conclusive, however it was done with contrast, so no further reason to delay biopsy. Biopsy ordered urgent * Continue anticoagulation for multiple thrombi: Hold 12hrs before procedure * Monitor renal function / replace electrolytes * appreciate all consults Subjective 24 Hr Interval Summary Free Text/Dictation no new complaints we discussed MRI findings and the next step Exam/Review of Systems Vital Signs Vitals Vital Signs Date Time Temp Pulse Resp B/P Pulse Ox O2 Delivery O2 Flow Rate FiO2 12/29/16 08:17 98.4 80 18 127/67 100 12/27/16 18:18 Room Air Intake and Output 12/28/16 12/28/16 12/29/16 15:00 23:00 07:00 Intake Total 200 ml 1460 ml 600 ml Output Total 900 ml 1050 ml Balance 200 ml 560 ml -450 ml Exam Constitutional: alert, oriented Head: atraumatic, normocephalic Neck: non-tender, supple Respiratory: clear to auscultation Cardiovascular: regular rate and rhythm Gastrointestinal: nl liver, spleen, non-tender, soft Extremities: normal pulses Results Result Diagram: 12/29/16 0503 12/29/16 0503 Results 24 hrs Laboratory Tests Test 12/29/16 05:03 White Blood Count 6.0 Red Blood Count 3.39 L Hemoglobin 9.0 L Hematocrit 29.4 L Mean Corpuscular Volume 86.7 Mean Corpuscular Hemoglobin 26.5 L Mean Corpuscular Hemoglobin Concent 30.6 L Red Cell Distribution Width 18.7 H Platelet Count 649 H Mean Platelet Volume 10.6 H Neutrophils % 67.2 Lymphocytes % 19.5 Monocytes % 8.3 Eosinophils % 3.5 Basophils % 0.8 Nucleated Red Blood Cells % 0.0 Neutrophils # 4.0 Lymphocytes # 1.2 Monocytes # 0.5 Eosinophils # 0.2 Basophils # 0.1 Nucleated Red Blood Cells # 0.0 Sodium Level 141 Potassium Level 3.2 L Chloride Level 109 Carbon Dioxide Level 24 Anion Gap 11 Blood Urea Nitrogen 6 L Creatinine 1.40 H Glucose Level 80 Calcium Level 8.2 L Magnesium Level 1.6 L Medications Medications Current Medications Ondansetron HCl (Zofran Inj) 4 mg Q6H PRN IV NAUSEA AND/OR VOMITING Last administered on 12/26/16 17:17; Admin Dose 4 MG; Start 12/20/16 at 07:30 Acetaminophen (Tylenol Tab) 650 mg Q6H PRN PO PAIN LEVEL 1-3 OR FEVER Last administered on 12/27/16 23:12; Admin Dose 650 MG; Start 12/20/16 at 07:30 Morphine Sulfate (morphine) 4 mg Q4H PRN IV SEVERE PAIN LEVEL 7-10 Last administered on 12/23/16 08:52; Admin Dose 4 MG; Start 12/20/16 at 07:30 Enoxaparin Sodium (Lovenox) 80 mg Q12 SC Last administered on 12/29/16 09:00; Admin Dose 80 MG; Start 12/20/16 at 09:00 Amlodipine Besylate 5 mg 5 mg DAILY PO Last administered on 12/29/16 08:56; Admin Dose 5 MG; Start 12/21/16 at 09:00 Ceftriaxone Sodium 50 ml @ 100 mls/hr Q24H IVPB Last administered on 21:42; Admin Dose 100 MLS/HR; Start 12/22/16 at 23:00; Stop 12/29/16 at 23: 30 Sodium Chloride 1,000 ml @ 50 mls/hr Q20H IV Last administered on 6/17/17at 19 :09; Admin Dose 50 MLS/HR; Start 12/23/16 at 10:00 Metronidazole (Flagyl 500 Mg (Pmx)) 100 ml @ 100 mls/hr Q8 IVPB Last administered on 12/29/16 06:21; Admin Dose 100 MLS/HR; Start 12/23/16 at 11:30 Pantoprazole (Protonix Iv) 40 mg BID@06,18 IV Last administered on 12/29/16 06 :21; Admin Dose 40 MG; Start 12/27/16 at 18:20 KAHLIL MARTEL Dec 29, 2016 09:40
[2016-12-29] MEDS: POTASSIUM CHLORIDE (SR) 20 MEQ TAB PO SCH ×2 (10:33→14:58)
[2016-12-29] MEDS ORDERED: MAGNESIUM SULFATE 2 GM/50 ML 50 ML IVPB ONE (11:00)
--- NOTE | 2016-12-29 12:00 | CONS ---
Date/Time of Note Date/Time of Note DATE: 12/29/16 TIME: 11:54 Assessment/Plan Assessment/Plan Chief Complaint/Hosp Course SUBJECTIVE: No acute changes. The patient is alert. Denies pain. MICROBIOLOGY: Blood culture on admission grew alpha hemolytic strep species. ANTIMICROBIALS: 1. Rocephin. 2. IV Flagyl. PHYSICAL EXAMINATION: GENERAL: This is a morbidly obese, well-developed, middle-aged woman who is awake, in no distress. HEENT: Head atraumatic, normocephalic. Sclerae anicteric. Buccal mucosa dry. NECK: Supple. CHEST: Rise symmetrical. Breath sounds diminished. HEART: S1, S2. ABDOMEN: Soft, bowel sounds present. EXTREMITIES: Without cyanosis. ASSESSMENT: 1. Alpha hemolytic strep bacteremia==> 2D ECHO neg. 2. Multiple liver lesions ?infectious etiology r/o metastatic disease. 3. Portal vein thrombosis. 4. Abnormal CT chest with multiple nodular airspace opacities. 5. Acute renal failure. 6. Anemia. 7. Abdominal Pain. PLAN: Clinically stable. Repeat Blood CX negative. Continue Abx. Follow up with GI and Oncology recommendations. Monitor Labs. DW staff. Problems: Consultation Date/Type/Reason Admit Date/Time Dec 19, 2016 at 21:34 Initial Consult Date 12/26/16 Type of Consultation: ID Referring Provider: KAHLIL MARTEL Exam/Review of Systems Vital Signs Vitals Vital Signs Date Time Temp Pulse Resp B/P Pulse Ox O2 Delivery O2 Flow Rate FiO2 12/29/16 08:17 98.4 80 18 127/67 100 12/27/16 18:18 Room Air Intake and Output 12/28/16 12/28/16 12/29/16 15:00 23:00 07:00 Intake Total 200 ml 1460 ml 600 ml Output Total 900 ml 1050 ml Balance 200 ml 560 ml -450 ml Results Result Diagram: 12/29/16 0503 12/29/16 0503 Results 24 hrs Laboratory Tests Test 12/29/16 05:03 White Blood Count 6.0 Red Blood Count 3.39 L Hemoglobin 9.0 L Hematocrit 29.4 L Mean Corpuscular Volume 86.7 Mean Corpuscular Hemoglobin 26.5 L Mean Corpuscular Hemoglobin Concent 30.6 L Red Cell Distribution Width 18.7 H Platelet Count 649 H Mean Platelet Volume 10.6 H Neutrophils % 67.2 Lymphocytes % 19.5 Monocytes % 8.3 Eosinophils % 3.5 Basophils % 0.8 Nucleated Red Blood Cells % 0.0 Neutrophils # 4.0 Lymphocytes # 1.2 Monocytes # 0.5 Eosinophils # 0.2 Basophils # 0.1 Nucleated Red Blood Cells # 0.0 Sodium Level 141 Potassium Level 3.2 L Chloride Level 109 Carbon Dioxide Level 24 Anion Gap 11 Blood Urea Nitrogen 6 L Creatinine 1.40 H Glucose Level 80 Calcium Level 8.2 L Magnesium Level 1.6 L Medications Medications Current Medications Ondansetron HCl (Zofran Inj) 4 mg Q6H PRN IV NAUSEA AND/OR VOMITING Last administered on 12/26/16 17:17; Admin Dose 4 MG; Start 12/20/16 at 07:30 Acetaminophen (Tylenol Tab) 650 mg Q6H PRN PO PAIN LEVEL 1-3 OR FEVER Last administered on 12/27/16 23:12; Admin Dose 650 MG; Start 12/20/16 at 07:30 Morphine Sulfate (morphine) 4 mg Q4H PRN IV SEVERE PAIN LEVEL 7-10 Last administered on 12/23/16 08:52; Admin Dose 4 MG; Start 12/20/16 at 07:30 Enoxaparin Sodium (Lovenox) 80 mg Q12 SC Last administered on 12/29/16 09:00; Admin Dose 80 MG; Start 12/20/16 at 09:00 Amlodipine Besylate 5 mg 5 mg DAILY PO Last administered on 12/29/16 08:56; Admin Dose 5 MG; Start 12/21/16 at 09:00 Ceftriaxone Sodium 50 ml @ 100 mls/hr Q24H IVPB Last administered on 21:42; Admin Dose 100 MLS/HR; Start 12/22/16 at 23:00; Stop 12/29/16 at 23: 30 Sodium Chloride 1,000 ml @ 50 mls/hr Q20H IV Last administered on 12/28/16 19 :09; Admin Dose 50 MLS/HR; Start 12/23/16 at 10:00 Metronidazole (Flagyl 500 Mg (Pmx)) 100 ml @ 100 mls/hr Q8 IVPB Last administered on 12/29/16 06:21; Admin Dose 100 MLS/HR; Start 12/23/16 at 11:30 Pantoprazole (Protonix Iv) 40 mg BID@06,18 IV Last administered on 12/29/16 06 :21; Admin Dose 40 MG; Start 12/27/16 at 18:20 Potassium Chloride 40 meq 40 meq Q4H PO Last administered on 12/29/16 10:33; Admin Dose 40 MEQ; Start 12/29/16 at 10:00; Stop 12/29/16 at 14:01 Magnesium Sulfate (Magnesium Sulfate 2 Gm/50 ml) 50 ml @ 25 mls/hr ONCE ONCE IVPB ; Start 12/29/16 at 11:00; Stop 12/29/16 at 12:59 JONATHAN AJ NP Dec 29, 2016 12:00
--- NOTE | 2016-12-29 12:23 | PN ---
Date/Time of Note Date/Time of Note DATE: 12/29/16 TIME: 12:14 Assessment/Plan VTE Prophylaxis VTE Prophylaxis Intervention: SCD's Lines/Catheters IV C[facility]ter Type (from [facility]): Peripheral IV Urinary Cath still in place: No Assessment/Plan Assessment/Plan Assessment * Multiple lesions in the liver rule out metastatic versus abscess MRI . Extensive intra and extrahepatic portal vein thrombosis. . Multiple ill-defined focal liver lesions in the right hepatic lobe. R/O infectious vs malignancy * Portal vein thrombosis * Anemia Colonoscopy Normal colonic mucosa to the cecum. Moderate size internal hemorrhoids. * Plan * Liver biopsy scheduled for tomorrow * Continue present management * Transfuse per protocol Subjective 24 Hr Interval Summary Free Text/Dictation Course reviewed with nursing staff Patient has anorectic and dislikes the food There is some abdominal discomfort No evidence of GI bleeding Scheduled for liver biopsy tomorrow Exam/Review of Systems Vital Signs Vitals Vital Signs Date Time Temp Pulse Resp B/P Pulse Ox O2 Delivery O2 Flow Rate FiO2 12/29/16 08:17 98.4 80 18 127/67 100 12/27/16 18:18 Room Air Intake and Output 12/28/16 12/28/16 12/29/16 15:00 23:00 07:00 Intake Total 200 ml 1460 ml 600 ml Output Total 900 ml 1050 ml Balance 200 ml 560 ml -450 ml Exam Constitutional: alert, obese, oriented, well developed Head: atraumatic, normocephalic Eyes: EOMI, PERRL, nl conjunctiva, nl lids, nl sclera ENMT: nl external ears & nose, nl lips & teeth, nl nasal mucosa & septum Neck: non-tender, supple Respiratory: clear to auscultation, normal air movement Cardiovascular: nl pulses, regular rate and rhythm Gastrointestinal: bowel sounds, distended, non-tender, soft, No mass, No rebound or guarding Musculoskeletal: nl extremities to inspection Skin: nl turgor Lymph: nl lymph nodes Results Result Diagram: 12/29/16 0503 12/29/16 0503 Results 24 hrs Laboratory Tests Test 12/29/16 05:03 White Blood Count 6.0 Red Blood Count 3.39 L Hemoglobin 9.0 L Hematocrit 29.4 L Mean Corpuscular Volume 86.7 Mean Corpuscular Hemoglobin 26.5 L Mean Corpuscular Hemoglobin Concent 30.6 L Red Cell Distribution Width 18.7 H Platelet Count 649 H Mean Platelet Volume 10.6 H Neutrophils % 67.2 Lymphocytes % 19.5 Monocytes % 8.3 Eosinophils % 3.5 Basophils % 0.8 Nucleated Red Blood Cells % 0.0 Neutrophils # 4.0 Lymphocytes # 1.2 Monocytes # 0.5 Eosinophils # 0.2 Basophils # 0.1 Nucleated Red Blood Cells # 0.0 Sodium Level 141 Potassium Level 3.2 L Chloride Level 109 Carbon Dioxide Level 24 Anion Gap 11 Blood Urea Nitrogen 6 L Creatinine 1.40 H Glucose Level 80 Calcium Level 8.2 L Magnesium Level 1.6 L Medications Medications Current Medications Ondansetron HCl (Zofran Inj) 4 mg Q6H PRN IV NAUSEA AND/OR VOMITING Last administered on 12/26/16 17:17; Admin Dose 4 MG; Start 12/20/16 at 07:30 Acetaminophen (Tylenol Tab) 650 mg Q6H PRN PO PAIN LEVEL 1-3 OR FEVER Last administered on 12/27/16 23:12; Admin Dose 650 MG; Start 12/20/16 at 07:30 Morphine Sulfate (morphine) 4 mg Q4H PRN IV SEVERE PAIN LEVEL 7-10 Last administered on 12/23/16 08:52; Admin Dose 4 MG; Start 12/20/16 at 07:30 Enoxaparin Sodium (Lovenox) 80 mg Q12 SC Last administered on 12/29/16 09:00; Admin Dose 80 MG; Start 12/20/16 at 09:00 Amlodipine Besylate 5 mg 5 mg DAILY PO Last administered on 12/29/16 08:56; Admin Dose 5 MG; Start 12/21/16 at 09:00 Ceftriaxone Sodium 50 ml @ 100 mls/hr Q24H IVPB Last administered on 21:42; Admin Dose 100 MLS/HR; Start 12/22/16 at 23:00; Stop 12/29/16 at 23: 30 Sodium Chloride 1,000 ml @ 50 mls/hr Q20H IV Last administered on 12/28/16 19 :09; Admin Dose 50 MLS/HR; Start 12/23/16 at 10:00 Metronidazole (Flagyl 500 Mg (Pmx)) 100 ml @ 100 mls/hr Q8 IVPB Last administered on 12/29/16 06:21; Admin Dose 100 MLS/HR; Start 12/23/16 at 11:30 Pantoprazole (Protonix Iv) 40 mg BID@,18 IV Last administered on 12/29/16 06 :21; Admin Dose 40 MG; Start 12/27/16 at 18:20 Potassium Chloride 40 meq 40 meq Q4H PO Last administered on 12/29/16 10:33; Admin Dose 40 MEQ; Start 12/29/16 at 10:00; Stop 12/29/16 at 14:01 Magnesium Sulfate (Magnesium Sulfate 2 Gm/50 ml) 50 ml @ 25 mls/hr ONCE ONCE IVPB Last administered on 12/29/16 11:56; Admin Dose 25 MLS/HR; Start at 11:00; Stop 12/29/16 at 12:59 MARTA MERIDA MD Dec 29, 2016 12:23
[2016-12-29] MEDS: ACETAMINOPHEN 325 MG TAB PO PRN ×2 (12:24→23:17)
[2016-12-29] MEDS: ONDANSETRON 4 MG INJ IV PRN (13:11)
[2016-12-29 19:25] VITALS: BP 131/76; RESP 18
[2016-12-29] MEDS: SOD CHLORIDE 0.9% 1,000 ML IV SCH (19:52)
[2016-12-29] MEDS ORDERED: ENOXAPARIN 80 MG/0.8 ML SYG SC SCH (21:00)
[2016-12-29] MEDS: CEFTRIAXONE 1 GM/50 ML (PMX) 50 ML IVPB SCH (23:02)
[2016-12-30] VITALS (12 sets, daily range): BP systolic 130–159; BP diastolic 60–79; PULSE 82–96; RESP 18–20
[2016-12-30] MEDS: PANTOPRAZOLE 40 MG INJ IV SCH ×2 (05:40→18:09)
[2016-12-30] MEDS: metroNIDAZOLE 500 MG/NS (PMX) 100 ML IVPB SCH ×3 (05:40→21:45)
[2016-12-30 06:37] LABS: ADD SCAN DIFF NO
[2016-12-30 06:42] LABS: BASOPHIL # 0.1 10^3/ul (0.0-0.1); BASOPHILS % 0.9 % (0.0-2.0); EOSINOPHILS # 0.2 10^3/ul (0.0-0.5); EOSINOPHILS % 2.8 % (0.0-7.0); HEMATOCRIT 29.2 % (37.0-47.0); HEMOGLOBIN 9.2 g/dl (12.0-16.0); LYMPHOCYTES # 1.1 10^3/ul (0.8-2.9); LYMPHOCYTES % 21.3 % (15.0-51.0); MEAN CORPUSCULAR HEMOGLOBIN 27.5 pg (29.0-33.0); MEAN CORPUSCULAR HGB CONC 31.5 g/dl (32.0-37.0); MEAN CORPUSCULAR VOLUME 87.4 fl (82.0-101.0); MEAN PLATELET VOLUME 10.6 fl (7.4-10.4); MONOCYTE # 0.3 10^3/ul (0.3-0.9); NEUTROPHIL # 3.6 10^3/ul (1.6-7.5); NEUTROPHILS % 68.2 % (39.0-77.0); PLATELET COUNT 674 10^3/UL (140-415); RED BLOOD COUNT 3.34 10^6/ul (4.20-5.40); RED CELL DISTRIBUTION WIDTH 18.9 % (11.5-14.5); WHITE BLOOD COUNT 5.3 10^3/ul (4.8-10.8)
[2016-12-30 07:30] LABS: ALBUMIN 3.2 g/dl (3.3-4.9); MAGNESIUM 2.1 mg/dl (1.7-2.5); TOTAL PROTEIN 6.1 g/dl (6.1-8.1)
[2016-12-30 07:33] LABS: CALCIUM 8.5 mg/dl (8.4-10.2); CREATININE 1.42 mg/dl (0.44-1.00); POTASSIUM 3.8 mmol/L (3.5-5.1)
--- NOTE | 2016-12-30 08:37 | PN ---
DATE: 12/30/2016 HEMATOLOGY AND ONCOLOGY PROGRESS NOTE SUBJECTIVE: The patient has no new complaints. There has been a marked decrease in pain in the rig ht upper quadrant and right lower chest. There is some mild pleuritic component remaining. OBJECTIVE: GENERAL: The patient is a well-developed, well-nourished female who is in no acute distress. VITAL SIGNS: Temperature 98.5, pulse 89, respirations 18, blood pressure 131/76, pulse oximetry 98% on room air. SKIN: No ecchymoses, no petechiae or rashes. HEENT: No mucosal lesions. No scleral icterus. Pupils equal, round, reactive to light and accommo dation. NECK: Supple, no jugular venous distention or thyroid enlargement. No carotid bruits. CHEST: Clear to auscultation and percussion. No rhonchi, wheezes, rales, or rubs. HEART: Regular sinus rhythm, no S3, S4, or murmurs. No rubs. BREASTS: No masses, skin retraction, or nipple inversion. ABDOMEN: Obese, but soft. Still some slight tenderness on palpation of the epigastrium and right u pper quadrant, but there are no masses, no ascites. Bowel sounds are active. EXTREMITIES: Good range of motion, no clubbing, edema, or cyanosis. NEUROLOGIC: Normal. MRI of the abdomen was performed with contrast. This does show the numerous nodular areas with some enhancement in the liver. It is still unclear what the etiology of these lesions may be. LABORATORY DATA: White count is 5300 with an absolute neutrophil count of 3600, hemoglobin 9.2, hem atocrit 29.2, platelet count 674,000. Sodium 142, potassium 3.8, creatinine 1.42, BUN 8, total bili aguilera 0, AST 20, ALT 32, alkaline phosphatase 171. ASSESSMENT: 1. Gram-positive bacteremia, resolved. 2. Multiple hepatic lesions, rule out malignancy versus multiple abscesses versus hemangiomata, ___ _ portal vein thrombosis. DESCRIPTION: The patient's liver functions have now normalized. The pain with which the patient or iginally presented and had been present for 2 to 3 months prior to admission had resolved with antib iotic therapy. The imaging studies done thus far have had not made it impossible to positively identify the hepatic lesions. Therefore, I do feel that a liver biopsy will be necessary and apparently this has been p lanned for today. Dictated By: ECTOR GHOSH MD, SR/DAR Conf#: [id number] DID#: [id number]
[2016-12-30] MEDS ORDERED: ENOXAPARIN 80 MG/0.8 ML SYG SC SCH (09:00)
[2016-12-30] MEDS: AMLODIPINE 5 MG TAB PO SCH (09:00)
--- NOTE | 2016-12-30 09:02 | GILP ---
DATE OF PROCEDURE: PROCEDURE: Esophagogastroduodenoscopy with biopsies. BRIEF HISTORY AND INDICATIONS: The patient is being evaluated for gastrointestinal bleeding and ane manny. PREMEDICATION: Monitored anesthesia care by anesthesiologist. SURGEON: Marta Raphael MD. TECHNIQUE: After informed consent, with the patient/relatives understanding the procedure, its ind ications, potential risks and complications, including but not limited to: allergic reaction, bleedi ng, perforation or infection, and after all pertinent questions were answered to the patients satisf action, the patient/relatives signed witnessed informed consent. Following this, premedication was administered slowly IV push under careful cardiovascular and respi ratory monitoring with pulse oximetry, automatic blood pressure and surveillance system monitor. Once the sedative effect was achieved the patient was place in the left lateral decubitus, the panen doscope was introduced and advanced under visual control. Careful examination of the upper gastrointestinal tract, both on insertion as well as withdrawal of the instrument disclosed the following findings: ESOPHAGUS: The distal esophagus shows erythema, edema and a 6 mm ulceration. Small hiatal hernia is noted. STOMACH: Upon entrance to the stomach air was insufflated. The gastric mcdermott distended normally. The mucosa of the fundus, body and antrum of the stomach shows mild erythema and edema of the mucosa . Biopsies were obtained to rule out Helicobacter pylori infection. IMPRESSION: 1. 6 mm esophageal ulcer with no stigmata. 2. Small hiatal hernia. 3. Gastritis, rule out Helicobacter pylori infection. PLAN: The patient will be treated with PPIs b.i.d. Pathology will be reviewed as soon as available . Endoscopy in 8 weeks is recommended to assess healing. Dictated By: MARTA RAPHAEL MS/DAR Conf#: [id number] DID#: [id number]
[2016-12-30] MEDS ORDERED: LIDOCAINE 1% (MDV) 20 ML INJ ONE (10:04)
[2016-12-30] MEDS ORDERED: MIDAZOLAM 1 MG/ML 2 ML INJ ONE (10:05)
[2016-12-30] MEDS ORDERED: SOD CHLORIDE 0.9% 500 ML ONE (10:05)
[2016-12-30] MEDS ORDERED: FENTAnyl 50 MCG/ML VIAL ONE ×2 (10:05→10:37)
[2016-12-30] MEDS ORDERED: LIDOCAINE 1% (MPF) 5 ML VIAL ONE (11:02)
--- NOTE | 2016-12-30 12:35 | PN ---
DATE: 12/30/2016 SUBJECTIVE: The patient is stable, pending CT-guided biopsy of liver, no other events noted. OBJECTIVE: VITAL SIGNS: Blood pressure 134/76, respiration 18, pulse 76, temperature 98.7. HEENT: Head is normocephalic. NECK: Supple. HEART: Regular rate. LUNGS: Show diminished breath sounds at base. ABDOMEN: Soft, nontender to palpation without rebound or guarding. EXTREMITIES: Negative for clubbing, cyanosis, edema. DERMATOLOGIC: No rashes. MUSCULOSKELETAL: No joint effusions. NEUROLOGIC: No change in exam. MEDICATIONS: The patient's medications have been reviewed. LABORATORY DATA: Shows sodium 142, potassium 3.8, BUN 8, creatinine 1.42. White count 5.3, hemoglo bin 9.2, hematocrit 29.2, platelet count is 674. ASSESSMENT AND PLAN: 1. Nonoliguric acute kidney injury with previous baseline creatinine 0.8 mg/dL. Etiology of acute kidney injury is secondary to contrast-associated nephropathy. The patient's renal function has slo wly been improving. Continue current treatment plan, supportive care, renally dose all medications, avoid nephrotoxins. 2. Anemia. Continue to monitor hemoglobin and hematocrit levels. 3. Mineral bone disease. Continue to monitor calcium and phosphorus levels. 4. Portal vein thrombosis. Continue Lovenox. 5. Multiple liver lesion, etiology is unclear. Workup ongoing. The patient is pending CT-guided b iopsy. 6. Bacteremia. Continue antibiotic therapy. 7. Hypertension. Continue current blood pressure regimen. Dictated By: MILLY GUTHRIE/DAR Conf#: [id number] DID#: [id number]
[2016-12-30] MEDS: ACETAMINOPHEN 325 MG TAB PO PRN (12:40)
--- NOTE | 2016-12-30 12:54 | CONS ---
Date/Time of Note Date/Time of Note DATE: 12/30/16 TIME: 12:53 Assessment/Plan Assessment/Plan Chief Complaint/Hosp Course SUBJECTIVE: No acute changes. S/p liver bx this am. The patient is alert, feels good, no fevers MICROBIOLOGY: Blood culture on admission grew alpha hemolytic strep species. ANTIMICROBIALS: 1. Rocephin. 2. IV Flagyl. PHYSICAL EXAMINATION: GENERAL: This is a morbidly obese, well-developed, middle-aged woman who is awake, in no distress. HEENT: Head atraumatic, normocephalic. Sclerae anicteric. Buccal mucosa dry. NECK: Supple. CHEST: Rise symmetrical. Breath sounds diminished. HEART: S1, S2. ABDOMEN: Soft, bowel sounds present. EXTREMITIES: Without cyanosis. ASSESSMENT: 1. Alpha hemolytic strep bacteremia==> 2D ECHO neg. 2. Multiple liver lesions ?infectious etiology r/o metastatic disease. 3. Portal vein thrombosis. 4. Abnormal CT chest with multiple nodular airspace opacities. 5. Acute renal failure. 6. Anemia PLAN: Clinically stable, symptomatically improved, continue abx, pending patho= => s/p liver bx 12/30/16, f/u GI/oncology rec-s. Dw staff Problems: Consultation Date/Type/Reason Admit Date/Time Dec 19, 2016 at 21:34 Initial Consult Date 12/20/16 Type of Consultation: ID Referring Provider: KAHLIL MARTEL Exam/Review of Systems Vital Signs Vitals Vital Signs Date Time Temp Pulse Resp B/P Pulse Ox O2 Delivery O2 Flow Rate FiO2 12/30/16 09:55 98.4 94 20 159/79 94 Room Air Intake and Output 12/29/16 12/29/16 12/30/16 15:00 23:00 07:00 Intake Total 150 ml 1890 ml 450 ml Output Total 900 ml 850 ml Balance 150 ml 990 ml -400 ml Results Result Diagram: 12/30/16 0448 12/30/16 0448 Results 24 hrs Laboratory Tests Test 12/30/16 04:48 White Blood Count 5.3 Red Blood Count 3.34 L Hemoglobin 9.2 L Hematocrit 29.2 L Mean Corpuscular Volume 87.4 Mean Corpuscular Hemoglobin 27.5 L Mean Corpuscular Hemoglobin Concent 31.5 L Red Cell Distribution Width 18.9 H Platelet Count 674 H Mean Platelet Volume 10.6 H Neutrophils % 68.2 Lymphocytes % 21.3 Monocytes % 6.0 Eosinophils % 2.8 Basophils % 0.9 Nucleated Red Blood Cells % 0.0 Neutrophils # 3.6 Lymphocytes # 1.1 Monocytes # 0.3 Eosinophils # 0.2 Basophils # 0.1 Nucleated Red Blood Cells # 0.0 Sodium Level 142 Potassium Level 3.8 Chloride Level 109 Carbon Dioxide Level 27 Anion Gap 10 Blood Urea Nitrogen 8 Creatinine 1.42 H Glucose Level 82 Calcium Level 8.5 Magnesium Level 2.1 Total Bilirubin 0.0 L Direct Bilirubin 0.00 Indirect Bilirubin 0.0 Aspartate Amino Transf (AST/SGOT) 20 Alanine Aminotransferase (ALT/SGPT) 32 Alkaline Phosphatase 171 H Total Protein 6.1 Albumin 3.2 L Medications Medications Current Medications Ondansetron HCl (Zofran Inj) 4 mg Q6H PRN IV NAUSEA AND/OR VOMITING Last administered on 12/29/16 13:11; Admin Dose 4 MG; Start 12/20/16 at 07:30 Acetaminophen (Tylenol Tab) 650 mg Q6H PRN PO PAIN LEVEL 1-3 OR FEVER Last administered on 12/30/16 12:40; Admin Dose 650 MG; Start 12/20/16 at 07:30 Morphine Sulfate (morphine) 4 mg Q4H PRN IV SEVERE PAIN LEVEL 7-10 Last administered on 12/23/16 08:52; Admin Dose 4 MG; Start 12/20/16 at 07:30 Amlodipine Besylate 5 mg 5 mg DAILY PO Last administered on 12/29/16 08:56; Admin Dose 5 MG; Start 12/21/16 at 09:00 Sodium Chloride 1,000 ml @ 50 mls/hr Q20H IV Last administered on 12/29/16 19 :52; Admin Dose 50 MLS/HR; Start 12/23/16 at 10:00 Metronidazole (Flagyl 500 Mg (Pmx)) 100 ml @ 100 mls/hr Q8 IVPB Last administered on 12/30/16 05:40; Admin Dose 100 MLS/HR; Start 12/23/16 at 11:30 Pantoprazole (Protonix Iv) 40 mg BID@18 IV Last administered on 12/30/16 05 :40; Admin Dose 40 MG; Start 12/27/16 at 18:20 Enoxaparin Sodium (Lovenox) 80 mg Q12 SC ; Start 12/30/16 at 09:00; Status Future hold NANCY HULL NP Dec 30, 2016 12:54
--- NOTE | 2016-12-30 13:47 | RADRPT ---
PROCEDURE: Ultrasound guided liver mass biopsy. CLINICAL INDICATION: Multiple liver masses. TECHNIQUE: Prior to the procedure, informed consent was obtained. Risks including bleeding and in fection were explained to the the patient. The patient understood and was willing to proceed. A pr ocedural pause was performed. The patient's name, date of , and procedure to be performed were verified. Using local anesthetic, sterile technique and ultrasound guidance, a 20-gauge automated core biopsy needle was used to biopsy of the mass in the right hepatic lobe. Multiple passes were made. [place] te tissue was obtained according to the pathologist present during the biopsy. Specimens were sent for histology as well as culture and sensitivity. The patient tolerated the procedure well. COMPARISON: Liver ultrasound dated 12/28/2016. FINDINGS: Images demonstrate the mass in the right hepatic lobe and subsequent images demonstrate needle withi n the mass in right hepatic lobe. IMPRESSION: 1. Satisfactory ultrasound-guided liver mass biopsy. RPTAT: QQ .Jer Cotto MD, MD Date Time Electronically viewed and signed by .Jer Cotto MD, on 12/30/2016 13:47 .R/
--- NOTE | 2016-12-30 14:36 | PN ---
Date/Time of Note Date/Time of Note DATE: 12/30/16 TIME: 14:32 Assessment/Plan VTE Prophylaxis VTE Prophylaxis Intervention: ambulation Lines/Catheters IV [facility] (from [facility] Peripheral IV Urinary Cath still in place: No Assessment/Plan Assessment/Plan Assessment * Multiple lesions in the liver rule out metastatic versus abscess MRI . Extensive intra and extrahepatic portal vein thrombosis. . Multiple ill-defined focal liver lesions in the right hepatic lobe. R/O infectious vs malignancy * Portal vein thrombosis * Anemia Colonoscopy Normal colonic mucosa to the cecum. Moderate size internal hemorrhoids. EGD . 6 mm esophageal ulcer with no stigmata. . Small hiatal hernia. Gastritis, rule out Helicobacter pylori infection. Plan * Will await biopsy result * Continue present management * Transfuse per protocol Subjective 24 Hr Interval Summary Free Text/Dictation * Course reviewed with RN * Patient seen and examined * S/p liver biopsy today Exam/Review of Systems Vital Signs Vitals Vital Signs Date Time Temp Pulse Resp B/P Pulse Ox O2 Delivery O2 Flow Rate FiO2 12/30/16 12:20 98.0 84 18 133/67 99 Room Air Intake and Output 12/29/16 12/29/16 12/30/16 15:00 23:00 07:00 Intake Total 150 ml 1890 ml 450 ml Output Total 900 ml 850 ml Balance 150 ml 990 ml -400 ml Exam Constitutional: alert, oriented Neck: non-tender, supple Respiratory: clear to auscultation, normal air movement Cardiovascular: nl pulses, regular rate and rhythm Gastrointestinal: nl liver, spleen, non-tender, soft Musculoskeletal: nl extremities to inspection, nl gait and stance Extremities: normal pulses Neurological: nl speech, nl strength Skin: nl turgor, No rash or lesions Lymph: nl lymph nodes Results Result Diagram: 12/30/16 0448 12/30/16 0448 Results 24 hrs Laboratory Tests Test 12/30/16 04:48 White Blood Count 5.3 Red Blood Count 3.34 L Hemoglobin 9.2 L Hematocrit 29.2 L Mean Corpuscular Volume 87.4 Mean Corpuscular Hemoglobin 27.5 L Mean Corpuscular Hemoglobin Concent 31.5 L Red Cell Distribution Width 18.9 H Platelet Count 674 H Mean Platelet Volume 10.6 H Neutrophils % 68.2 Lymphocytes % 21.3 Monocytes % 6.0 Eosinophils % 2.8 Basophils % 0.9 Nucleated Red Blood Cells % 0.0 Neutrophils # 3.6 Lymphocytes # 1.1 Monocytes # 0.3 Eosinophils # 0.2 Basophils # 0.1 Nucleated Red Blood Cells # 0.0 Sodium Level 142 Potassium Level 3.8 Chloride Level 109 Carbon Dioxide Level 27 Anion Gap 10 Blood Urea Nitrogen 8 Creatinine 1.42 H Glucose Level 82 Calcium Level 8.5 Magnesium Level 2.1 Total Bilirubin 0.0 L Direct Bilirubin 0.00 Indirect Bilirubin 0.0 Aspartate Amino Transf (AST/SGOT) 20 Alanine Aminotransferase (ALT/SGPT) 32 Alkaline Phosphatase 171 H Total Protein 6.1 Albumin 3.2 L Medications Medications Current Medications Ondansetron HCl (Zofran Inj) 4 mg Q6H PRN IV NAUSEA AND/OR VOMITING Last administered on 12/29/16 13:11; Admin Dose 4 MG; Start 12/20/16 at 07:30 Acetaminophen (Tylenol Tab) 650 mg Q6H PRN PO PAIN LEVEL 1-3 OR FEVER Last administered on 12/30/16 12:40; Admin Dose 650 MG; Start 12/20/16 at 07:30 Morphine Sulfate (morphine) 4 mg Q4H PRN IV SEVERE PAIN LEVEL 7-10 Last administered on 12/23/16 08:52; Admin Dose 4 MG; Start 12/20/16 at 07:30 Amlodipine Besylate 5 mg 5 mg DAILY PO Last administered on 12/29/16 08:56; Admin Dose 5 MG; Start 12/21/16 at 09:00 Sodium Chloride 1,000 ml @ 50 mls/hr Q20H IV Last administered on 12/29/16 19 :52; Admin Dose 50 MLS/HR; Start 12/23/16 at 10:00 Metronidazole (Flagyl 500 Mg (Pmx)) 100 ml @ 100 mls/hr Q8 IVPB Last administered on 12/30/16 13:48; Admin Dose 100 MLS/HR; Start 12/23/16 at 11:30 Pantoprazole (Protonix Iv) 40 mg BID@06,18 IV Last administered on 12/30/16 05 :40; Admin Dose 40 MG; Start 12/27/16 at 18:20 Enoxaparin Sodium 80 mg 80 mg Q12 SC ; Start 12/30/16 at 09:00; Status Future hold Ceftriaxone Sodium (Rocephin) 50 ml @ 100 mls/hr Q24H IVPB ; Start 12/30/16 at 23:00 NARENDRA FINLEY NP Dec 30, 2016 14:36
[2016-12-30] MEDS: SOD CHLORIDE 0.9% 1,000 ML IV SCH ×2 (15:32→20:29)
--- NOTE | 2016-12-30 17:11 | PN ---
Date/Time of Note Date/Time of Note DATE: 12/30/16 TIME: 17:07 Assessment/Plan VTE Prophylaxis VTE Prophylaxis Intervention: LMWH Lines/Catheters IV Catheter Type (from [facility]): Peripheral IV Urinary Cath still in place: No Assessment/Plan Chief Complaint/Hosp Course Assessment/Plan: 51 F with: 1. Abdominal pain: likely 2/2 liver lesions: resolved - monitor, pain meds as needed 2. Extensive portal vein thrombosis and right hepatic vein thrombosis - continue LMWH, f/u Heme/Onc rec's - need to see if can switch to PO anticoagulant as outpt. 3. Multiple liver lesions : differentials are infection (abscesses vs metastatic) - s/p biopsy today. Also on abx for possible infx source - f/u biopsy results. 4. Pulmonary nodules and right-sided infiltrates - Nodules were seen on CT / but last CXR showed clear lungs - monitor 5. Uterine Leioma: likely incidental 6. HTN: controlled 7. Iron deficiency anemia s/p PRBC and Iron transfusion - monitor CBC daily 8. S/p Alpha hemolytic strep bacteremia rule out contaminant - f/u ID rec's, on abx 9. Elevated CA 125 - f/u biopsy and heme/onc rec;s 10. Probable UTI 11. RUE DVT - on lovenox 12. GRICELDA 2/2 ATN from contrast versus Vanco: stabilizing / recovery phase Problems: Subjective 24 Hr Interval Summary Free Text/Dictation Pt had liver biopsy performed. Mild abd pain smpts. Exam/Review of Systems Vital Signs Vitals Vital Signs Date Time Temp Pulse Resp B/P Pulse Ox O2 Delivery O2 Flow Rate FiO2 12/30/16 12:20 98.0 84 18 133/67 99 Room Air Intake and Output 12/29/16 12/29/16 12/30/16 15:00 23:00 07:00 Intake Total 150 ml 1890 ml 450 ml Output Total 900 ml 850 ml Balance 150 ml 990 ml -400 ml Exam Constitutional: alert, oriented Head: atraumatic, normocephalic Neck: non-tender, supple Respiratory: clear to auscultation Cardiovascular: regular rate and rhythm Gastrointestinal: nl liver, spleen, non-tender, soft Extremities: normal pulses Results Result Diagram: 12/30/16 0448 12/30/168 Results 24 hrs Laboratory Tests Test 12/30/16 04:48 White Blood Count 5.3 Red Blood Count 3.34 L Hemoglobin 9.2 L Hematocrit 29.2 L Mean Corpuscular Volume 87.4 Mean Corpuscular Hemoglobin 27.5 L Mean Corpuscular Hemoglobin Concent 31.5 L Red Cell Distribution Width 18.9 H Platelet Count 674 H Mean Platelet Volume 10.6 H Neutrophils % 68.2 Lymphocytes % 21.3 Monocytes % 6.0 Eosinophils % 2.8 Basophils % 0.9 Nucleated Red Blood Cells % 0.0 Neutrophils # 3.6 Lymphocytes # 1.1 Monocytes # 0.3 Eosinophils # 0.2 Basophils # 0.1 Nucleated Red Blood Cells # 0.0 Sodium Level 142 Potassium Level 3.8 Chloride Level 109 Carbon Dioxide Level 27 Anion Gap 10 Blood Urea Nitrogen 8 Creatinine 1.42 H Glucose Level 82 Calcium Level 8.5 Magnesium Level 2.1 Total Bilirubin 0.0 L Direct Bilirubin 0.00 Indirect Bilirubin 0.0 Aspartate Amino Transf (AST/SGOT) 20 Alanine Aminotransferase (ALT/SGPT) 32 Alkaline Phosphatase 171 H Total Protein 6.1 Albumin 3.2 L Medications Medications Current Medications Ondansetron HCl (Zofran Inj) 4 mg Q6H PRN IV NAUSEA AND/OR VOMITING Last administered on 12/29/16 13:11; Admin Dose 4 MG; Start 12/20/16 at 07:30 Acetaminophen (Tylenol Tab) 650 mg Q6H PRN PO PAIN LEVEL 1-3 OR FEVER Last administered on 12/30/16 12:40; Admin Dose 650 MG; Start 12/20/16 at 07:30 Morphine Sulfate (morphine) 4 mg Q4H PRN IV SEVERE PAIN LEVEL 7-10 Last administered on 12/23/16 08:52; Admin Dose 4 MG; Start 12/20/16 at 07:30 Amlodipine Besylate 5 mg 5 mg DAILY PO Last administered on 12/29/16 08:56; Admin Dose 5 MG; Start 12/21/16 at 09:00 Sodium Chloride 1,000 ml @ 50 mls/hr Q20H IV Last administered on 12/29/16 19 :52; Admin Dose 50 MLS/HR; Start 12/23/16 at 10:00 Metronidazole (Flagyl 500 Mg (Pmx)) 100 ml @ 100 mls/hr Q8 IVPB Last administered on 12/30/16 13:48; Admin Dose 100 MLS/HR; Start 12/23/16 at 11:30 Pantoprazole (Protonix Iv) 40 mg BID@06,18 IV Last administered on 12/30/16 05 :40; Admin Dose 40 MG; Start 12/27/16 at 18:20 Enoxaparin Sodium 80 mg 80 mg Q12 SC ; Start 12/30/16 at 09:00; Status Future hold Ceftriaxone Sodium (Rocephin) 50 ml @ 100 mls/hr Q24H IVPB ; Start 12/30/16 at 23:00 VERONICA FERGUSON Dec 30, 2016 17:11
[2016-12-30] MEDS: HYDROCODONE/APAP (5/325) TAB PO PRN (18:09)
[2016-12-30] MEDS: ENOXAPARIN 80 MG/0.8 ML SYG SC SCH (20:32)
[2016-12-30] MEDS: CEFTRIAXONE 1 GM/50 ML (PMX) 50 ML IVPB SCH (23:11)
[2016-12-31] MEDS: HYDROCODONE/APAP (5/325) TAB PO PRN ×2 (04:46→21:34)
[2016-12-31 06:04] LABS: ADD SCAN DIFF NO; BASOPHILS % 0.7 % (0.0-2.0); EOSINOPHILS # 0.1 10^3/ul (0.0-0.5); EOSINOPHILS % 1.3 % (0.0-7.0); HEMOGLOBIN 9.8 g/dl (12.0-16.0); LYMPHOCYTES # 1.2 10^3/ul (0.8-2.9); LYMPHOCYTES % 19.9 % (15.0-51.0); MEAN CORPUSCULAR HEMOGLOBIN 26.8 pg (29.0-33.0); MEAN CORPUSCULAR HGB CONC 30.6 g/dl (32.0-37.0); MEAN CORPUSCULAR VOLUME 87.4 fl (82.0-101.0); MEAN PLATELET VOLUME 10.4 fl (7.4-10.4); MONOCYTE # 0.4 10^3/ul (0.3-0.9); MONOCYTES % 6.9 % (0.0-11.0); NEUTROPHIL # 4.3 10^3/ul (1.6-7.5); NEUTROPHILS % 70.9 % (39.0-77.0); PLATELET COUNT 694 10^3/UL (140-415); RED BLOOD COUNT 3.66 10^6/ul (4.20-5.40); RED CELL DISTRIBUTION WIDTH 19.2 % (11.5-14.5); WHITE BLOOD COUNT 6.1 10^3/ul (4.8-10.8)
[2016-12-31] MEDS: metroNIDAZOLE 500 MG/NS (PMX) 100 ML IVPB SCH ×3 (06:13→21:24)
[2016-12-31] MEDS: PANTOPRAZOLE 40 MG INJ IV SCH ×2 (06:13→17:33)
[2016-12-31 06:19] LABS: CALCIUM 8.7 mg/dl (8.4-10.2); CREATININE 1.28 mg/dl (0.44-1.00); POTASSIUM 3.5 mmol/L (3.5-5.1)
[2016-12-31 08:40] VITALS: BP 128/62; RESP 19
[2016-12-31] MEDS: AMLODIPINE 5 MG TAB PO SCH (08:48)
[2016-12-31] MEDS: ENOXAPARIN 80 MG/0.8 ML SYG SC SCH ×2 (08:55→21:29)
--- NOTE | 2016-12-31 11:14 | PN ---
DATE: 12/31/2016 SUBJECTIVE: Patient stable, no fevers, no acute events overnight. No fevers, chills, nausea, vomit ing. OBJECTIVE: VITAL SIGNS: Blood pressure is 120/62, respiration 19, pulse 93, temperature 98.3. HEENT: Head is normocephalic. NECK: Supple. HEART: Regular rate. LUNGS: Show diminished breath sounds at the base. ABDOMEN: Soft, nontender to palpation. No rebound or guarding. EXTREMITIES: Negative for clubbing, cyanosis, no edema. DERMATOLOGIC: No rashes. MUSCULOSKELETAL: No joint effusions. NEUROLOGIC: No change in exam. MEDICATIONS: The patient's medications have been reviewed. LABORATORY DATA: Sodium 140, potassium 3.5, chloride 106, BUN 8, creatinine 1.28. White count 6.1, hemoglobin 9.8, hematocrit 32.0, platelet count is 694. ASSESSMENT AND PLAN: 1. Nonoliguric acute kidney injury with previous baseline creatinine 0.8 mg/dL. Etiology secondary to contrast-associated nephropathy. The patient's renal function has improved. At this point, rachael berryue current treatment plan, supportive care, renally dose medications, avoid nephrotoxins. Will d iscontinue IV fluids and monitor renal function. 2. Anemia. Continue to monitor hemoglobin and hematocrit levels. 3. Mineral bone disorder. Continue to monitor calcium and phosphorus levels. 4. Portal vein thrombosis. Continue Lovenox. 5. Multiple liver lesions, etiology unclear. 6. Status post biopsy. We will follow up results. 7. Bacteremia. Continue current antibiotic regimen. 8. Hypertension. Continue current blood pressure regimen. . Dictated By: MILLY GUTHRIE/DAR Conf#: [id number] DID#: [id number]
--- NOTE | 2016-12-31 12:25 | PN ---
DATE: 12/31/2016 SUBJECTIVE: No events overnight. The patient is sleeping. No fevers. Vital signs stable. WBC 6. 1, no shift, no bands. BUN 8, creatinine 1.28. MICROBIOLOGY: Gram stain of liver biopsy tissue preliminary negative. ANTIMICROBIALS: The patient is on: 1. Rocephin. 2. Flagyl. PHYSICAL EXAMINATION: GENERAL: Obese, middle-aged, woman who is sleeping, in no distress. HEENT: Head atraumatic, normocephalic. Sclerae anicteric. Buccal mucosa dry. NECK: Supple. CHEST: Rise symmetrical. Breath sounds clear. HEART: S1, S2. ABDOMEN: Soft, bowel tones present. EXTREMITIES: Without cyanosis. ASSESSMENT: 1. Status post alpha hemolytic strep bacteremia, repeat blood cultures had been negative. 2. Multiple hepatic lesions, rule out malignancy versus abscess versus hemangiomata, status post li lamont biopsy yesterday. 3. Portal vein thrombosis. 4. Acute renal failure. PLAN: The patient remains stable. Awaiting for final workup. 2-D echo revealed no vegetations. R epeat blood cultures negative. She is being followed by Oncology and Gastroenterology. Continue pr esent care. Dictated By: NANCY HULL PLUMBING INSTRUCTOR for MAVIS MCKEON MD NI/NTS Conf#: [id number] DID#: [id number]
--- NOTE | 2016-12-31 14:44 | PN ---
Date/Time of Note Date/Time of Note DATE: 12/31/16 TIME: 14:44 Assessment/Plan VTE Prophylaxis VTE Prophylaxis Intervention: LMWH Lines/Catheters IV C[facility] Type (from [facility] Peripheral IV Urinary Cath still in place: No Assessment/Plan Chief Complaint/Hosp Course Assessment/Plan: 51 F with: 1. Abdominal pain: likely 2/2 liver lesions: resolved - monitor, pain meds as needed 2. Extensive portal vein thrombosis and right hepatic vein thrombosis - continue LMWH, f/u Heme/Onc rec's - need to see if can switch to PO anticoagulant as outpt. 3. Multiple liver lesions : differentials are infection (abscesses vs metastatic) - s/p biopsy today. Also on abx for possible infx source - f/u biopsy results. 4. Pulmonary nodules and right-sided infiltrates - Nodules were seen on CT / but last CXR showed clear lungs - monitor 5. Uterine Leioma: likely incidental 6. HTN: controlled 7. Iron deficiency anemia s/p PRBC and Iron transfusion - monitor CBC daily 8. S/p Alpha hemolytic strep bacteremia rule out contaminant - f/u ID rec's, on abx 9. Elevated CA 125 - f/u biopsy and heme/onc rec;s 10. Probable UTI 11. RUE DVT - on lovenox 12. GRICELDA 2/2 ATN from contrast versus Vanco: stabilizing / recovery phase Problems: Exam/Review of Systems Vital Signs Vitals Vital Signs Date Time Temp Pulse Resp B/P Pulse Ox O2 Delivery O2 Flow Rate FiO2 12/31/16 08:40 98.3 93 19 128/62 93 12/30/16 12:20 Room Air 12/30/16 11:15 2 Intake and Output 12/30/16 12/30/16 12/31/16 15:00 23:00 07:00 Intake Total 100 ml 2009 ml 1000 ml Balance 100 ml 2010 ml 1000 ml Results Result Diagram: 12/31/16 0447 12/31/16 0447 Results 24 hrs Laboratory Tests Test 12/31/16 04:47 White Blood Count 6.1 Red Blood Count 3.66 L Hemoglobin 9.8 L Hematocrit 32.0 L Mean Corpuscular Volume 87.4 Mean Corpuscular Hemoglobin 26.8 L Mean Corpuscular Hemoglobin Concent 30.6 L Red Cell Distribution Width 19.2 H Platelet Count 694 H Mean Platelet Volume 10.4 Neutrophils % 70.9 Lymphocytes % 19.9 Monocytes % 6.9 Eosinophils % 1.3 Basophils % 0.7 Nucleated Red Blood Cells % 0.0 Neutrophils # 4.3 Lymphocytes # 1.2 Monocytes # 0.4 Eosinophils # 0.1 Basophils # 0.0 Nucleated Red Blood Cells # 0.0 Sodium Level 140 Potassium Level 3.5 Chloride Level 106 Carbon Dioxide Level 28 Anion Gap 10 Blood Urea Nitrogen 8 Creatinine 1.28 H Glucose Level 83 Calcium Level 8.7 Medications Medications Current Medications Ondansetron HCl (Zofran Inj) 4 mg Q6H PRN IV NAUSEA AND/OR VOMITING Last administered on 12/29/16 13:11; Admin Dose 4 MG; Start 12/20/16 at 07:30 Acetaminophen (Tylenol Tab) 650 mg Q6H PRN PO PAIN LEVEL 1-3 OR FEVER Last administered on 12/30/16 12:40; Admin Dose 650 MG; Start 12/20/16 at 07:30 Morphine Sulfate (morphine) 4 mg Q4H PRN IV SEVERE PAIN LEVEL 7-10 Last administered on 12/23/16 08:52; Admin Dose 4 MG; Start 12/20/16 at 07:30 Amlodipine Besylate 5 mg 5 mg DAILY PO Last administered on 12/31/16 08:48; Admin Dose 5 MG; Start 12/21/16 at 09:00 Metronidazole (Flagyl 500 Mg (Pmx)) 100 ml @ 100 mls/hr Q8 IVPB Last administered on 12/31/16 13:26; Admin Dose 100 MLS/HR; Start 12/23/16 at 11:30 Pantoprazole 40 mg 40 mg BID@06,18 IV Last administered on 12/31/16 06:13; Admin Dose 40 MG; Start 12/27/16 at 18:20 Ceftriaxone Sodium (Rocephin) 50 ml @ 100 mls/hr Q24H IVPB Last administered on 12/30/16 23:11; Admin Dose 100 MLS/HR; Start 12/30/16 at 23:00 Acetaminophen/ Hydrocodone Bitart ([place] (5/325)) 1 tab Q6H PRN PO PAIN LEVEL 7 -10 Last administered on 12/31/16 04:46; Admin Dose 1 TAB; Start 12/30/16 at 18 :00 Enoxaparin Sodium (Lovenox) 80 mg Q12 SC Last administered on 12/31/16t 08:55; Admin Dose 80 MG; Start 12/30/16 at 21:00 VERONICA FERGUSON Dec 31, 2016 14:44
--- NOTE | 2016-12-31 14:58 | PN ---
Date/Time of Note Date/Time of Note DATE: 12/31/16 TIME: 14:57 Assessment/Plan VTE Prophylaxis VTE Prophylaxis Intervention: LMWH Lines/Catheters IV Catheter Type (from [facility]): Peripheral IV Urinary Cath still in place: No Assessment/Plan Chief Complaint/Hosp Course Assessment/Plan: 51 F with: 1. Abdominal pain: likely 2/2 liver lesions: resolved - monitor, pain meds as needed 2. Extensive portal vein thrombosis and right hepatic vein thrombosis - continue LMWH, f/u Heme/Onc rec's - need to see if can switch to PO anticoagulant as outpt. 3. Multiple liver lesions : differentials are infection (abscesses vs metastatic) - s/p biopsy today. Also on abx for possible infx source - f/u biopsy results. 4. Pulmonary nodules and right-sided infiltrates - Nodules were seen on CT / but last CXR showed clear lungs - monitor 5. Uterine Leioma: likely incidental 6. HTN: controlled 7. Iron deficiency anemia s/p PRBC and Iron transfusion - monitor CBC daily 8. S/p Alpha hemolytic strep bacteremia rule out contaminant - f/u ID rec's, on abx 9. Elevated CA 125 - f/u biopsy and heme/onc rec;s 10. Probable UTI 11. RUE DVT - on lovenox 12. GRICELDA 2/2 ATN from contrast versus Vanco: stabilizing / recovery phase Problems: Subjective 24 Hr Interval Summary Free Text/Dictation No acute events overnight. Exam/Review of Systems Vital Signs Vitals Vital Signs Date Time Temp Pulse Resp B/P Pulse Ox O2 Delivery O2 Flow Rate FiO2 12/31/16 08:40 98.3 93 19 128/62 93 12/30/16 12:20 Room Air 12/30/16 11:15 2 Intake and Output 12/30/16 12/30/16 12/31/16 15:00 23:00 07:00 Intake Total 100 ml 2009 ml 1000 ml Balance 100 ml 2010 ml 1000 ml Exam Constitutional: alert, oriented Head: atraumatic, normocephalic Neck: non-tender, supple Respiratory: clear to auscultation Cardiovascular: regular rate and rhythm Gastrointestinal: nl liver, spleen, non-tender, soft Extremities: normal pulses Results Result Diagram: 12/31/16 0447 12/31/16446 Results 24 hrs Laboratory Tests Test 12/31/16 04:47 White Blood Count 6.1 Red Blood Count 3.66 L Hemoglobin 9.8 L Hematocrit 32.0 L Mean Corpuscular Volume 87.4 Mean Corpuscular Hemoglobin 26.8 L Mean Corpuscular Hemoglobin Concent 30.6 L Red Cell Distribution Width 19.2 H Platelet Count 694 H Mean Platelet Volume 10.4 Neutrophils % 70.9 Lymphocytes % 19.9 Monocytes % 6.9 Eosinophils % 1.3 Basophils % 0.7 Nucleated Red Blood Cells % 0.0 Neutrophils # 4.3 Lymphocytes # 1.2 Monocytes # 0.4 Eosinophils # 0.1 Basophils # 0.0 Nucleated Red Blood Cells # 0.0 Sodium Level 140 Potassium Level 3.5 Chloride Level 106 Carbon Dioxide Level 28 Anion Gap 10 Blood Urea Nitrogen 8 Creatinine 1.28 H Glucose Level 83 Calcium Level 8.7 Medications Medications Current Medications Ondansetron HCl (Zofran Inj) 4 mg Q6H PRN IV NAUSEA AND/OR VOMITING Last administered on 12/29/16 13:11; Admin Dose 4 MG; Start 12/20/16 at 07:30 Acetaminophen (Tylenol Tab) 650 mg Q6H PRN PO PAIN LEVEL 1-3 OR FEVER Last administered on 12/30/16 12:40; Admin Dose 650 MG; Start 12/20/16 at 07:30 Morphine Sulfate (morphine) 4 mg Q4H PRN IV SEVERE PAIN LEVEL 7-10 Last administered on 12/23/16 08:52; Admin Dose 4 MG; Start 12/20/16 at 07:30 Amlodipine Besylate 5 mg 5 mg DAILY PO Last administered on 12/31/16 08:48; Admin Dose 5 MG; Start 12/21/16 at 09:00 Metronidazole (Flagyl 500 Mg (Pmx)) 100 ml @ 100 mls/hr Q8 IVPB Last administered on 12/31/16 13:26; Admin Dose 100 MLS/HR; Start 12/23/16 at 11:30 Pantoprazole 40 mg 40 mg BID@06,18 IV Last administered on 12/31/16 06:13; Admin Dose 40 MG; Start 12/27/16 at 18:20 Ceftriaxone Sodium (Rocephin) 50 ml @ 100 mls/hr Q24H IVPB Last administered on 12/30/16 23:11; Admin Dose 100 MLS/HR; Start 12/30/16 at 23:00 Acetaminophen/ Hydrocodone Bitart ([place] (5/325)) 1 tab Q6H PRN PO PAIN LEVEL 7 -10 Last administered on 12/31/16 04:46; Admin Dose 1 TAB; Start 12/30/16 at 18 :00 Enoxaparin Sodium (Lovenox) 80 mg Q12 SC Last administered on 12/31/16 08:55; Admin Dose 80 MG; Start 12/30/16 at 21:00 VERONICA FERGUSON Dec 31, 2016 14:58
--- NOTE | 2016-12-31 18:53 | PN ---
Date/Time of Note Date/Time of Note DATE: 12/31/16 TIME: 18:50 Assessment/Plan VTE Prophylaxis VTE Prophylaxis Intervention: SCD's Lines/Catheters [facility] Peripheral IV Urinary Cath still in place: No Assessment/Plan Assessment/Plan Assessment * Multiple lesions in the liver rule out metastatic versus abscess MRI . Extensive intra and extrahepatic portal vein thrombosis. . Multiple ill-defined focal liver lesions in the right hepatic lobe. R/O infectious vs malignancy Post liver biopsy/pathology pending * Portal vein thrombosis * Anemia Colonoscopy Normal colonic mucosa to the cecum. Moderate size internal hemorrhoids. EGD . 6 mm esophageal ulcer with no stigmata. . Small hiatal hernia. Gastritis, rule out Helicobacter pylori infection. Plan * Will await biopsy result * Continue present management * Transfuse per protocol Subjective 24 Hr Interval Summary Free Text/Dictation Course reviewed with nursing staff Patient complains of right-sided abdominal discomfort unchanged Liver biopsy performed results pending, no description of purulent material Exam/Review of Systems Vital Signs Vitals Vital Signs Date Time Temp Pulse Resp B/P Pulse Ox O2 Delivery O2 Flow Rate FiO2 12/31/16 08:40 98.3 93 19 128/62 93 12/30/16 12:20 Room Air 12/30/16 11:15 2 Intake and Output 12/30/16 12/30/16 12/31/16 15:00 23:00 07:00 Intake Total 100 ml 2009 ml 1000 ml Balance 100 ml 2009 ml 1000 ml Exam Constitutional: alert, obese, oriented, well developed Eyes: EOMI, PERRL, nl conjunctiva, nl lids, nl sclera ENMT: nl external ears & nose, nl lips & teeth, nl nasal mucosa & septum Neck: non-tender, supple Respiratory: clear to auscultation, normal air movement Cardiovascular: nl pulses, regular rate and rhythm Gastrointestinal: bowel sounds, distended, soft, tender (Right upper quadrant and epigastric area), No ascites, No rebound or guarding Musculoskeletal: nl extremities to inspection Skin: nl turgor, No rash or lesions Lymph: nl lymph nodes Results Result Diagram: 12/31/16 0447 12/31/16446 Results 24 hrs Laboratory Tests Test 12/31/16 04:47 White Blood Count 6.1 Red Blood Count 3.66 L Hemoglobin 9.8 L Hematocrit 32.0 L Mean Corpuscular Volume 87.4 Mean Corpuscular Hemoglobin 26.8 L Mean Corpuscular Hemoglobin Concent 30.6 L Red Cell Distribution Width 19.2 H Platelet Count 694 H Mean Platelet Volume 10.4 Neutrophils % 70.9 Lymphocytes % 19.9 Monocytes % 6.9 Eosinophils % 1.3 Basophils % 0.7 Nucleated Red Blood Cells % 0.0 Neutrophils # 4.3 Lymphocytes # 1.2 Monocytes # 0.4 Eosinophils # 0.1 Basophils # 0.0 Nucleated Red Blood Cells # 0.0 Sodium Level 140 Potassium Level 3.5 Chloride Level 106 Carbon Dioxide Level 28 Anion Gap 10 Blood Urea Nitrogen 8 Creatinine 1.28 H Glucose Level 83 Calcium Level 8.7 Medications Medications Current Medications Ondansetron HCl (Zofran Inj) 4 mg Q6H PRN IV NAUSEA AND/OR VOMITING Last administered on 12/29/16 13:11; Admin Dose 4 MG; Start 12/20/16 at 07:30 Acetaminophen (Tylenol Tab) 650 mg Q6H PRN PO PAIN LEVEL 1-3 OR FEVER Last administered on 12/30/16 12:40; Admin Dose 650 MG; Start 12/20/16 at 07:30 Morphine Sulfate (morphine) 4 mg Q4H PRN IV SEVERE PAIN LEVEL 7-10 Last administered on 12/23/16 08:52; Admin Dose 4 MG; Start 12/20/16 at 07:30 Amlodipine Besylate 5 mg 5 mg DAILY PO Last administered on 12/31/16 08:48; Admin Dose 5 MG; Start 12/21/16 at 09:00 Metronidazole (Flagyl 500 Mg (Pmx)) 100 ml @ 100 mls/hr Q8 IVPB Last administered on 12/31/16 13:26; Admin Dose 100 MLS/HR; Start 12/23/16 at 11:30 Pantoprazole 40 mg 40 mg BID@06,18 IV Last administered on 12/31/16 17:33; Admin Dose 40 MG; Start 12/27/16 at 18:20 Ceftriaxone Sodium (Rocephin) 50 ml @ 100 mls/hr Q24H IVPB Last administered on 12/30/16 23:11; Admin Dose 100 MLS/HR; Start 12/30/16 at 23:00 Acetaminophen/ Hydrocodone Bitart ([place] (5/325)) 1 tab Q6H PRN PO PAIN LEVEL 7 -10 Last administered on 12/31/16 04:46; Admin Dose 1 TAB; Start 12/30/16 at 18 :00 Enoxaparin Sodium (Lovenox) 80 mg Q12 SC Last administered on 12/31/16 08:55; Admin Dose 80 MG; Start 12/30/16 at 21:00 MARTA MERIDA MD Dec 31, 2016 18:53
[2016-12-31 19:30] VITALS: BP 134/70; RESP 18
[2016-12-31] MEDS: CEFTRIAXONE 1 GM/50 ML (PMX) 50 ML IVPB SCH (22:51)
[2017-01-01 06:04] LABS: ADD SCAN DIFF NO
[2017-01-01 06:12] LABS: BASOPHIL # 0.1 10^3/ul (0.0-0.1); BASOPHILS % 0.9 % (0.0-2.0); EOSINOPHILS # 0.1 10^3/ul (0.0-0.5); EOSINOPHILS % 2.4 % (0.0-7.0); HEMATOCRIT 31.3 % (37.0-47.0); HEMOGLOBIN 9.8 g/dl (12.0-16.0); LYMPHOCYTES # 1.7 10^3/ul (0.8-2.9); MEAN CORPUSCULAR HEMOGLOBIN 27.2 pg (29.0-33.0); MEAN CORPUSCULAR HGB CONC 31.3 g/dl (32.0-37.0); MEAN CORPUSCULAR VOLUME 86.9 fl (82.0-101.0); MEAN PLATELET VOLUME 10.4 fl (7.4-10.4); MONOCYTE # 0.5 10^3/ul (0.3-0.9); MONOCYTES % 9.2 % (0.0-11.0); NEUTROPHIL # 3.1 10^3/ul (1.6-7.5); NEUTROPHILS % 56.1 % (39.0-77.0); PLATELET COUNT 570 10^3/UL (140-415); RED CELL DISTRIBUTION WIDTH 19.3 % (11.5-14.5); WHITE BLOOD COUNT 5.5 10^3/ul (4.8-10.8)
[2017-01-01] MEDS: metroNIDAZOLE 500 MG/NS (PMX) 100 ML IVPB SCH ×3 (06:20→21:47)
[2017-01-01] MEDS: PANTOPRAZOLE 40 MG INJ IV SCH (06:21)
[2017-01-01 06:44] LABS: CREATININE 1.18 mg/dl (0.44-1.00); MAGNESIUM 1.9 mg/dl (1.7-2.5); PHOSPHORUS 4.3 mg/dl (2.5-4.9); POTASSIUM 3.5 mmol/L (3.5-5.1)
[2017-01-01 07:40] VITALS: BP 147/73; RESP 18
--- NOTE | 2017-01-01 08:13 | PN ---
DATE: 12/31/2016 MEDICAL ONCOLOGY PROGRESS NOTE SUBJECTIVE: The patient states she is feeling well. Did have some post biopsy discomfort last nigh t, but now has not experienced any abdominal pain. The patient states her appetite is good. She has no nausea or vomiting. She has had no night sweat s, no shaking chills. OBJECTIVE: GENERAL: The patient is a well-developed, well-nourished female in no acute distress. VITAL SIGNS: Temperature 98.9, pulse 89 per minute and regular, respirations 18, blood pressure 136 /77, pulse oximetry is 96% on room air. SKIN: No ecchymosis, no petechiae or rashes. HEENT: Normocephalic. No evidence of trauma. Pupils equal, round, react to light and accommodatio n. There is no scleral icterus. Oral mucosa is moist without lesions. Tongue is well papillated. NECK: Supple, no jugular venous distention or thyroid enlargement. CHEST: Clear to auscultation and percussion. No rhonchi, wheezes, rales or rubs. HEART: Regular sinus rhythm, no S3, S4, or murmurs. ABDOMEN: Obese, but soft. There is no organomegaly, mass, or tenderness. No longer any pain on pa lpation of the right upper quadrant. EXTREMITIES: No clubbing, edema or cyanosis. No palpable cords or Homans sign. NEUROLOGIC: Normal. EGD was done. There was a 6 mm esophageal ulcer. A biopsy of this ulcer showed chronic gastritis a nd a small lymphoid aggregate. There were no other changes, no evidence of malignancy or dysplasia. ASSESSMENT: 1. Gram-positive bacteremia, resolved. 2. Multiple hepatic lesions, rule out malignancy versus multiple abscesses versus hemangiomata. 3. Portal vein thrombosis. DISCUSSION: As noted, the patient's symptoms, which had preceded her admission, have all resolved w ith the antibiotic therapy. It is unclear how much change there has been in the hepatic lesions. T he patient did have an ultrasound-guided needle biopsy of the liver yesterday. Results will likely be available later today. Any further recommendations will, of course, depend upon the results of this biopsy. Dictated By: ECTOR GHOSH MD SR/NTS Conf#: [id number] DID#: [id number]
--- NOTE | 2017-01-01 08:26 | PN ---
DATE: 01/01/2017 SUBJECTIVE: The patient is feeling well. Although she does state she has some epigastric discomfor t upon swallowing. The patient has had no fevers or chills, no actual abdominal pain. OBJECTIVE GENERAL: Patient is a well-developed, but obese female who is in no acute distress. VITAL SIGNS: Temperature is 98.4, pulse 84, respirations 18, blood pressure 147/73, pulse oximetry 94%. SKIN: No ecchymosis, no petechiae or rashes. HEENT: No mucosal lesions. No scleral icterus. NECK: Supple, no jugular venous distention or thyroid enlargement. CHEST: Decreased facet breath sounds throughout. No rhonchi, wheezes, rales or rubs. BREASTS: No masses, skin retraction, nipple inversion. HEART: Regular sinus rhythm, no S3, S4 or murmurs. ABDOMEN: Obese. No masses or ascites. EXTREMITIES: No edema or cyanosis. No palpable cords or Homans sign. NEUROLOGIC: Normal. A biopsy of the liver does not show metastatic carcinoma or primary primary hepatocellular carcinoma . There is a spindle cell lesion which is not obviously malignant and may be an inflammatory respon se. ASSESSMENT: 1. Gram-positive bacteremia, resolved. 2. 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 3. Pedunculated uterine mass. 4. Esophageal ulcer. DISCUSSION: The esophageal ulcer may in fact be the cause for the patient's underlying complaints o f dysphagia and pain and epigastric discomfort on swallowing. 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 This suggests type of inflammatory immune response. I am somewhat concerned, however, regarding the patient's uterine mass, which I feel needs to be fur ther explored. Dictated By: ECTOR GHOSH MD SR/NTS Conf#: [id number] DID#: [id number]
--- NOTE | 2017-01-01 09:39 | PN ---
DATE: 01/01/2017 SUBJECTIVE: The patient is stable, no acute events overnight. No fevers, chills, nausea, vomiting. No shortness of breath. OBJECTIVE: VITAL SIGNS: Blood pressure 147/73, respirations 18, pulse 84, temperature 98.4. HEENT: Head is normocephalic. NECK: Supple. HEART: Regular rate. LUNGS: Show diminished breath sounds at the bases. ABDOMEN: Soft, nontender to palpation. No rebound or guarding. EXTREMITIES: Negative for clubbing, cyanosis. No edema. DERMATOLOGIC: No rashes. MUSCULOSKELETAL: No joint effusions. NEUROLOGIC: No change in exam. MEDICATIONS: The patient's medications have been reviewed. LABORATORY DATA: Shows a sodium 142, potassium 3.5, BUN 9, creatinine 1.18. ASSESSMENT AND PLAN: 1. Nonoliguric acute kidney injury with previous baseline creatinine of 0.8 mg/dL. Etiology of acu te kidney injury is secondary to contrast-associated nephropathy. The patient's renal function has slowly been improving. At this point, continue current treatment plan, supportive care, renally dos e all meds, avoid nephrotoxins. 2. Anemia. We will continue to monitor hemoglobin and hematocrit levels. 3. Mineral bone disorder. Continue to monitor calcium and phosphorus levels. 4. Portal vein thrombosis. Continue Lovenox. 5. Liver lesions. The patient is status post biopsy which showed no evidence of malignancy or dysp lasia. We will continue to monitor. 6. Sepsis secondary to bacteremia. Continue current antibiotic regimen. 7. Hypertension. Continue current blood pressure regimen. Dictated By: MILLY GUTHRIE/DAR Conf#: [id number] DID#: [id number]
[2017-01-01] MEDS: AMLODIPINE 5 MG TAB PO SCH (09:42)
[2017-01-01] MEDS: ENOXAPARIN 80 MG/0.8 ML SYG SC SCH ×2 (09:45→20:39)
--- NOTE | 2017-01-01 12:48 | PN ---
DATE: 01/01/2017 INFECTIOUS DISEASE PROGRESS NOTE SUBJECTIVE: No events overnight. The patient is alert, feels better, looks comfortable, no fevers. LABORATORY DATA: WBC 5.5, no shift. BUN 9, creatinine 1.18. ANTIMICROBIALS: 1. Rocephin. 2. Flagyl. MICROBIOLOGY: Culture of surgical biopsy negative as well as negative gram stain. Pathology report to Dr. Martinez's note revealed spindle cell lesions with infiltration of plasmacytoma and lymphocytes suggestive type of inflammatory immune response. PHYSICAL EXAMINATION: GENERAL: This is an obese, well-developed, middle-aged woman who is alert, in no distress. HEENT: Head atraumatic, normocephalic. Sclerae anicteric. Buccal mucosa dry. NECK: Supple. CHEST: Rise symmetrical. Breath sounds clear. HEART: S1, S2. ABDOMEN: Soft. Bowel sounds present. EXTREMITIES: Without cyanosis, edema. ASSESSMENT: 1. Status post abdominal pain with no evidence of multiple liver lesions. Status post liver biopsy that revealed no abscess and no evidence of metastatic disease. 2. Status post streptococcal bacteremia. 3. Total vein thrombosis. 4. Anemia. 5. Esophageal ulceration per EGD. 6. Acute renal failure. PLAN: The patient remains stable, repeat blood cultures negative, 2-D echo revealed no vegetation. There is no evidence of liver abscess, as per pathology report. She continues to be seen by Dr. Martinez in regards to her uterine mass. We will complete 2 weeks of antibiotics. Above was discussed with Dr. Juan Branham. Dictated By: NANCY HULL STACKER for JUAN HERRERA/DAR Conf#: [id number] DID#: [id number] KARMEND
--- NOTE | 2017-01-01 15:51 | PN ---
Date/Time of Note Date/Time of Note DATE: 01/01/17 TIME: 15:38 Assessment/Plan VTE Prophylaxis VTE Prophylaxis Intervention: LMWH Lines/Catheters [facility] Saline Lock Urinary Cath still in place: No Assessment/Plan Chief Complaint/Hosp Course Assessment/Plan: 51 F with: 1. Abdominal pain: likely 2/2 liver lesions vs her esophageal ulcer: less present now. - monitor, pain meds as needed 2. Extensive portal vein thrombosis and right hepatic vein thrombosis - continue LMWH, f/u Heme/Onc rec's - need to see if can switch to PO anticoagulant as outpt. 3. Multiple liver lesions : differentials are infection (abscesses vs metastatic) - s/p biopsy yesterday. per heme/Onc - does not show metastatic carcinoma or primary primary hepatocellular carcinoma. 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 Also on abx for possible infx source. - f/u final biopsy results. - continue abx (also tx + blood cx as well) 4. Pulmonary nodules and right-sided infiltrates - Nodules were seen on CT / but last CXR showed clear lungs - monitor 5. Uterine mass: likely incidental, although cannot r/o sarcoma, per Heme/ onc. - may need to get Tissue Recovery Technician Onc consult to perform eval, including possible biopsy of uterine mass - r/o leiomyosarcoma. 6. HTN: controlled 7. Iron deficiency anemia s/p PRBC and Iron transfusion - H/H stable - monitor CBC daily 8. S/p Alpha hemolytic strep bacteremia rule out contaminant - f/u ID rec's, on abx 9. Elevated CA 125 - f/u biopsy and heme/onc rec;s 10. RUE DVT - on lovenox 11. GRICELDA 2/2 ATN from contrast versus Vanco: stabilizing / recovery phase Problems: Subjective 24 Hr Interval Summary Free Text/Dictation Pt seen by ID and Heme/Onc team. Exam/Review of Systems Vital Signs Vitals Vital Signs Date Time Temp Pulse Resp B/P Pulse Ox O2 Delivery O2 Flow Rate FiO2 01/01/17 07:40 98.4 84 18 147/73 94 12/30/16 12:20 Room Air 12/30/16 11:15 2 Intake and Output 12/31/16 12/31/16 01/01/17 15:00 23:00 07:00 Intake Total 220 ml 1060 ml 650 ml Balance 220 ml 1060 ml 650 ml Exam Constitutional: alert, oriented Head: atraumatic, normocephalic Neck: non-tender, supple Respiratory: clear to auscultation Cardiovascular: regular rate and rhythm Gastrointestinal: nl liver, spleen, non-tender, soft Extremities: normal pulses Results Result Diagram: 01/01/17 0438 01/01/17 0438 Results 24 hrs Laboratory Tests Test 01/01/17 04:38 White Blood Count 5.5 Red Blood Count 3.60 L Hemoglobin 9.8 L Hematocrit 31.3 L Mean Corpuscular Volume 86.9 Mean Corpuscular Hemoglobin 27.2 L Mean Corpuscular Hemoglobin Concent 31.3 L Red Cell Distribution Width 19.3 H Platelet Count 570 H Mean Platelet Volume 10.4 Neutrophils % 56.1 Lymphocytes % 31.0 Monocytes % 9.2 Eosinophils % 2.4 Basophils % 0.9 Nucleated Red Blood Cells % 0.0 Neutrophils # 3.1 Lymphocytes # 1.7 Monocytes # 0.5 Eosinophils # 0.1 Basophils # 0.1 Nucleated Red Blood Cells # 0.0 Sodium Level 142 Potassium Level 3.5 Chloride Level 104 Carbon Dioxide Level 27 Anion Gap 15 Blood Urea Nitrogen 9 Creatinine 1.18 H Glucose Level 93 Calcium Level 9.0 Phosphorus Level 4.3 Magnesium Level 1.9 Medications Medications Current Medications Ondansetron HCl (Zofran Inj) 4 mg Q6H PRN IV NAUSEA AND/OR VOMITING Last administered on 12/29/16 13:11; Admin Dose 4 MG; Start 12/20/16 at 07:30 Acetaminophen (Tylenol Tab) 650 mg Q6H PRN PO PAIN LEVEL 1-3 OR FEVER Last administered on 12/30/16 12:40; Admin Dose 650 MG; Start 12/20/16 at 07:30 Morphine Sulfate (morphine) 4 mg Q4H PRN IV SEVERE PAIN LEVEL 7-10 Last administered on 12/23/16 08:52; Admin Dose 4 MG; Start 12/20/16 at 07:30 Amlodipine Besylate 5 mg 5 mg DAILY PO Last administered on 01/01/17 09:42; Admin Dose 5 MG; Start 12/21/16 at 09:00 Metronidazole (Flagyl 500 Mg (Pmx)) 100 ml @ 100 mls/hr Q8 IVPB Last administered on 01/01/17 14:56; Admin Dose 100 MLS/HR; Start 12/23/16 at 11:30 Pantoprazole 40 mg 40 mg BID@06,18 IV Last administered on 01/01/17 06:21; Admin Dose 40 MG; Start 12/27/16 at 18:20 Ceftriaxone Sodium (Rocephin) 50 ml @ 100 mls/hr Q24H IVPB Last administered on 12/31/16 22:51; Admin Dose 100 MLS/HR; Start 12/30/16 at 23:00 Acetaminophen/ Hydrocodone Bitart ([place] (5/325)) 1 tab Q6H PRN PO PAIN LEVEL 7 -10 Last administered on 12/31/16 21:34; Admin Dose 1 TAB; Start 12/30/16 at 18 :00 Enoxaparin Sodium (Lovenox) 80 mg Q12 SC Last administered on 01/01/17 09:45; Admin Dose 80 MG; Start 12/30/16 at 21:00 VERONICA FERGUSON Jan 01, 2017 15:48
[2017-01-01] MEDS: PANTOPRAZOLE (EC) 40 MG TAB PO SCH (18:27)
--- NOTE | 2017-01-01 18:27 | CONS ---
Date/Time of Note Date/Time of Note DATE: 01/01/17 TIME: 18:21 Consultation Date/Type/Reason Admit Date/Time Dec 19, 2016 at 21:34 Reason for Consultation Reviewed chart and will certainly see and further evaluate in detail late tonight or tomorrow and discuss options with patient and Onc/IM. Issue/ Question will be whether it will be beneficial to do a laparoscopy with myomectomy and obtain additional liver tissue or if it were a uterine sarcoma on f.s whether here medical status warrants a laparoscopic hyst and minimal to remove. Will see later or a.m. Thank you. Constitutional: improved, no complaints Eyes: no complaints ENT: no complaints Respiratory: no complaints Cardiovascular: no complaints Gastrointestinal: other, pain Genitourinary: no complaints Musculoskeletal: no complaints Skin: no complaints Neurologic: no complaints Endocrine: no complaints Lymphatic: no complaints Psychological: nl mood/affect, no complaints Immunologic: no complaints Past Medical History Medical History: hypertension Past Surgical History Past Surgical Hx: no surgical history Social History Alcohol Use: none Smoking Status: Never smoker Drug Use: none Exam/Review of Systems Vital Signs Vitals Vital Signs Date Time Temp Pulse Resp B/P Pulse Ox O2 Delivery O2 Flow Rate FiO2 01/01/17 07:40 98.4 84 18 147/73 94 12/30/16 12:20 Room Air 12/30/16 11:15 2 Intake and Output 12/31/16 12/31/16 01/01/17 15:00 23:00 07:00 Intake Total 220 ml 1060 ml 650 ml Balance 220 ml 1060 ml 650 ml Results Result Diagram: 01/01/17 0438 01/01/17 0438 Results 24 hrs Laboratory Tests Test 01/01/17 04:38 White Blood Count 5.5 Red Blood Count 3.60 L Hemoglobin 9.8 L Hematocrit 31.3 L Mean Corpuscular Volume 86.9 Mean Corpuscular Hemoglobin 27.2 L Mean Corpuscular Hemoglobin Concent 31.3 L Red Cell Distribution Width 19.3 H Platelet Count 570 H Mean Platelet Volume 10.4 Neutrophils % 56.1 Lymphocytes % 31.0 Monocytes % 9.2 Eosinophils % 2.4 Basophils % 0.9 Nucleated Red Blood Cells % 0.0 Neutrophils # 3.1 Lymphocytes # 1.7 Monocytes # 0.5 Eosinophils # 0.1 Basophils # 0.1 Nucleated Red Blood Cells # 0.0 Sodium Level 142 Potassium Level 3.5 Chloride Level 104 Carbon Dioxide Level 27 Anion Gap 15 Blood Urea Nitrogen 9 Creatinine 1.18 H Glucose Level 93 Calcium Level 9.0 Phosphorus Level 4.3 Magnesium Level 1.9 Medications Medications Current Medications Ondansetron HCl (Zofran Inj) 4 mg Q6H PRN IV NAUSEA AND/OR VOMITING Last administered on 12/29/16 13:11; Admin Dose 4 MG; Start 12/20/16 at 07:30 Acetaminophen (Tylenol Tab) 650 mg Q6H PRN PO PAIN LEVEL 1-3 OR FEVER Last administered on 12/30/16 12:40; Admin Dose 650 MG; Start 12/20/16 at 07:30 Morphine Sulfate (morphine) 4 mg Q4H PRN IV SEVERE PAIN LEVEL 7-10 Last administered on 12/23/16 08:52; Admin Dose 4 MG; Start 12/20/16 at 07:30 Amlodipine Besylate 5 mg 5 mg DAILY PO Last administered on 01/01/17 09:42; Admin Dose 5 MG; Start 12/21/16 at 09:00 Metronidazole 100 ml @ 100 mls/hr Q8 IVPB Last administered on 01/01/17 14:56 ; Admin Dose 100 MLS/HR; Start 12/23/16 at 11:30 Ceftriaxone Sodium (Rocephin) 50 ml @ 100 mls/hr Q24H IVPB Last administered on 12/31/16 22:51; Admin Dose 100 MLS/HR; Start 12/30/16 at 23:00 Acetaminophen/ Hydrocodone Bitart ([place] (5/325)) 1 tab Q6H PRN PO PAIN LEVEL 7 -10 Last administered on 12/31/16 21:34; Admin Dose 1 TAB; Start 12/30/16 at 18 :00 Enoxaparin Sodium (Lovenox) 80 mg Q12 SC Last administered on 01/01/17 09:45; Admin Dose 80 MG; Start 12/30/16 at 21:00 Pantoprazole (Protonix Tab) 40 mg BID@06,18 PO ; Start 01/01/17 at 18:00 KAYLA NAPOLES MD Jan 01, 2017 18:27
[2017-01-01 20:09] VITALS: BP 136/65; RESP 20
[2017-01-01] MEDS: CEFTRIAXONE 1 GM/50 ML (PMX) 50 ML IVPB SCH (22:55)
[2017-01-02] MEDS: HYDROCODONE/APAP (5/325) TAB PO PRN (02:35)
[2017-01-02] MEDS: PANTOPRAZOLE (EC) 40 MG TAB PO SCH ×2 (05:50→18:00)
[2017-01-02] MEDS: metroNIDAZOLE 500 MG/NS (PMX) 100 ML IVPB SCH (05:50)
[2017-01-02 05:55] LABS: ADD SCAN DIFF NO
[2017-01-02 06:15] LABS: BASOPHILS % 0.7 % (0.0-2.0); EOSINOPHILS # 0.1 10^3/ul (0.0-0.5); EOSINOPHILS % 2.1 % (0.0-7.0); HEMOGLOBIN 9.9 g/dl (12.0-16.0); LYMPHOCYTES # 1.3 10^3/ul (0.8-2.9); LYMPHOCYTES % 23.9 % (15.0-51.0); MEAN CORPUSCULAR HEMOGLOBIN 27.5 pg (29.0-33.0); MEAN CORPUSCULAR HGB CONC 31.9 g/dl (32.0-37.0); MEAN CORPUSCULAR VOLUME 86.1 fl (82.0-101.0); MEAN PLATELET VOLUME 10.6 fl (7.4-10.4); MONOCYTE # 0.5 10^3/ul (0.3-0.9); MONOCYTES % 8.8 % (0.0-11.0); NEUTROPHIL # 3.4 10^3/ul (1.6-7.5); NEUTROPHILS % 64.1 % (39.0-77.0); PLATELET COUNT 606 10^3/UL (140-415); RED CELL DISTRIBUTION WIDTH 19.2 % (11.5-14.5); WHITE BLOOD COUNT 5.4 10^3/ul (4.8-10.8)
[2017-01-02] MEDS: morphine 4 MG/ML VIAL IV PRN ×4 (06:15→20:47)
[2017-01-02 06:40] LABS: CREATININE 1.15 mg/dl (0.44-1.00); MAGNESIUM 1.8 mg/dl (1.7-2.5); PHOSPHORUS 4.1 mg/dl (2.5-4.9); POTASSIUM 3.2 mmol/L (3.5-5.1)
[2017-01-02 07:49] VITALS: BP 141/81; RESP 18
[2017-01-02] MEDS ORDERED: POTASSIUM CHLORIDE (SR) 20 MEQ TAB PO STA (08:23)
[2017-01-02] MEDS: AMLODIPINE 5 MG TAB PO SCH (08:46)
[2017-01-02] MEDS: ENOXAPARIN 80 MG/0.8 ML SYG SC SCH ×2 (08:48→20:49)
--- NOTE | 2017-01-02 09:03 | PN ---
DATE: 01/02/2017 SUBJECTIVE: The patient is stable. No acute events overnight. No fevers, chills, nausea, or vomit ing. OBJECTIVE: VITAL SIGNS: Blood pressure 141/81, respirations 18, pulse 75, temperature 97.8. HEENT: Head is normocephalic. NECK: Supple. HEART: Regular rate. LUNGS: Showed diminished breath sounds at the base. ABDOMEN: Soft, nontender to palpation. No rebound or guarding. EXTREMITIES: Negative for clubbing or cyanosis. No edema. DERMATOLOGIC: No rashes. MUSCULOSKELETAL: Have no joint effusion. NEUROLOGIC: No change in exam. MEDICATIONS: The patient's medications have been reviewed. LABORATORY DATA: Shows sodium 138, potassium 3.2, chloride 101, BUN 9, creatinine 1.15. White coun t 5.4, hemoglobin 9.9, hematocrit 31.0, platelet count is 606. ASSESSMENT AND PLAN: 1. Nonoliguric acute kidney injury, with a previous baseline creatinine of 0.8 mg/dL. Etiology of acute kidney injury is secondary to contrast-associated nephropathy. The patient's renal function h as slowly been improving. Continue the current treatment plan, supportive care, renally dose medica tions. 2. Anemia. Continue to monitor hemoglobin and hematocrit levels. 3. Mineral bone disorder. Continue to monitor calcium and phosphorus levels. 4. Hypokalemia. Replete with potassium chloride. 5. Portal vein thrombosis. Continue Lovenox. 6. Liver lesions. Likely abscess or inflammatory response. Continue the current treatment plan. Continue antibiotic therapy. 7. Sepsis secondary to bacteremia. Continue the current antibiotic regimen. 8. Hypertension. Continue the current blood pressure regimen. 9. Uterine mass. The patient is being evaluated by HIGH FREQUENCY MILL OPERATOR/ONC. Follow up recommendations. Dictated By: MILLY GUTHRIE/NTS Conf#: [id number] DID#: [id number]
--- NOTE | 2017-01-02 11:42 | RADRPT ---
PROCEDURE: Chest Radiograph. CLINICAL INDICATION: Chest and abdominal pain. TECHNIQUE: Single frontal chest radiograph. COMPARISON: Chest radiograph 12/19/2016 FINDINGS: The cardiomediastinal silhouette is within normal limits. Lung volumes are moderately decreased in there is moderate basilar atelectasis. No infiltrate or effusion is seen. The bones are intact. IMPRESSION: 1. Low lung volumes with basilar atelectasis. RPTAT: KK .William Crespo MD, MD Date Time Electronically viewed and signed by .William Crespo MD, on 01/02/2017 11:42 .B/
--- NOTE | 2017-01-02 13:35 | PN ---
Date/Time of Note Date/Time of Note DATE: 01/02/17 TIME: 13:33 Assessment/Plan VTE Prophylaxis VTE Prophylaxis Intervention: SCD's Lines/Catheters IV Catheter Type (from Nrsg): Saline Lock Urinary Cath still in place: No Assessment/Plan Assessment/Plan Biopsy did not show malignancy in the liver. Uterine mass to be addressed by LINK KNITTING MACHINE OPERATOR. No new suggestions now. Subjective 24 Hr Interval Summary Free Text/Dictation Pt still c/o RUQ pain Exam/Review of Systems Vital Signs Vitals Vital Signs Date Time Temp Pulse Resp B/P Pulse Ox O2 Delivery O2 Flow Rate FiO2 01/02/17 07:49 97.8 75 18 141/81 93 12/30/16 12:20 Room Air 12/30/16 11:15 2 Intake and Output 01/01/17 01/01/17 01/02/17 15:00 23:00 07:00 Intake Total 1460 ml 1100 ml Balance 1460 ml 1100 ml Exam Constitutional: alert, obese Head: normocephalic Eyes: nl conjunctiva Neck: supple Respiratory: clear to auscultation Cardiovascular: regular rate and rhythm Gastrointestinal: other (obese but no mass appreciated) Results Result Diagram: 01/02/17 0453 01/02/17 0453 Results 24 hrs Laboratory Tests Test 01/02/17 04:53 White Blood Count 5.4 Red Blood Count 3.60 L Hemoglobin 9.9 L Hematocrit 31.0 L Mean Corpuscular Volume 86.1 Mean Corpuscular Hemoglobin 27.5 L Mean Corpuscular Hemoglobin Concent 31.9 L Red Cell Distribution Width 19.2 H Platelet Count 606 H Mean Platelet Volume 10.6 H Neutrophils % 64.1 Lymphocytes % 23.9 Monocytes % 8.8 Eosinophils % 2.1 Basophils % 0.7 Nucleated Red Blood Cells % 0.0 Neutrophils # 3.4 Lymphocytes # 1.3 Monocytes # 0.5 Eosinophils # 0.1 Basophils # 0.0 Nucleated Red Blood Cells # 0.0 Sodium Level 138 Potassium Level 3.2 L Chloride Level 101 Carbon Dioxide Level 29 Anion Gap 11 Blood Urea Nitrogen 9 Creatinine 1.15 H Glucose Level 96 Calcium Level 9.0 Phosphorus Level 4.1 Magnesium Level 1.8 Medications Medications Current Medications Ondansetron HCl (Zofran Inj) 4 mg Q6H PRN IV NAUSEA AND/OR VOMITING Last administered on 12/29/16 13:11; Admin Dose 4 MG; Start 12/20/16 at 07:30 Acetaminophen (Tylenol Tab) 650 mg Q6H PRN PO PAIN LEVEL 1-3 OR FEVER Last administered on 12/30/16 12:40; Admin Dose 650 MG; Start 12/20/16 at 07:30 Morphine Sulfate (morphine) 4 mg Q4H PRN IV SEVERE PAIN LEVEL 7-10 Last administered on 01/02/17 10:22; Admin Dose 4 MG; Start 12/20/16 at 07:30 Amlodipine Besylate 5 mg 5 mg DAILY PO Last administered on 01/02/17 08:46; Admin Dose 5 MG; Start 12/21/16 at 09:00 Metronidazole 100 ml @ 100 mls/hr Q8 IVPB Last administered on 01/02/17 05:50 ; Admin Dose 100 MLS/HR; Start 12/23/16 at 11:30 Ceftriaxone Sodium (Rocephin) 50 ml @ 100 mls/hr Q24H IVPB Last administered on 01/01/17 22:55; Admin Dose 100 MLS/HR; Start 12/30/16 at 23:00 Acetaminophen/ Hydrocodone Bitart ([place] (5/325)) 1 tab Q6H PRN PO PAIN LEVEL 7 -10 Last administered on 01/02/17 02:35; Admin Dose 1 TAB; Start 12/30/16 at 18 :00 Enoxaparin Sodium (Lovenox) 80 mg Q12 SC Last administered on 01/02/17 08:48; Admin Dose 80 MG; Start 12/30/16 at 21:00 Pantoprazole (Protonix Tab) 40 mg BID@06,18 PO Last administered on 01/02/17 05:50; Admin Dose 40 MG; Start 01/01/17 at 18:00 BENJY TONG MD Jan 02, 2017 13:35
--- NOTE | 2017-01-02 14:08 | PN ---
DATE: 01/02/2017 INFECTIOUS DISEASE PROGRESS NOTE SUBJECTIVE: Patient is alert, complaining of right-sided abdominal pain that radiates to her right shoulder. She is in no distress, afebrile. MICROBIOLOGY: Cultures remain negative. DIAGNOSTICS: She had a chest x-ray that revealed basilar atelectasis. 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 No malignancy. Differential diagnosis, inflammatory myofibroblastic tumor. Immunohistochemical statin will be performed for cla rification. The patient is being seen by Dr. Martinez. She is also being seen by Dr. Jaimes for h er uterine mass. ANTIMICROBIALS: She is on Rocephin and Flagyl day, #14. PHYSICAL EXAMINATION: GENERAL: This is an obese, well-developed, middle-aged woman, who is alert, in no distress . HEENT: Head atraumatic, normocephalic. Sclerae anicteric. Buccal mucosa pink. NECK: Supple. CHEST: Chest rise is symmetrical. Breath sounds clear. HEART: S1, S2. ABDOMEN: Soft, bowel tones present. EXTREMITIES: No cyanosis. ASSESSMENT: 1. Hepatic lesion. Status post liver biopsy that revealed no abscess and no evidence of metastatic disease. 2. Pelvic mass. The patient is being evaluated by Dr. Jaimes. 3. Status post alpha hemolytic strep bacteremia. 4. Obesity. 5. Anemia and acute renal failure. 6. Esophageal ulceration, per EGD. PLAN: The patient remains hemodynamically stable. She is scheduled for an abdominal ultrasound to evaluate the right upper quadrant abdominal pain since yesterday. Again, there is no evidence of li lamont abscess as per pathology report. We are going to discontinue antibiotics and observe her. Dictated By: NANCY HULL APPRENTICE ARCHITECT for MAVIS MCKEON MD NI/NTS Conf#: [id number] DID#: [id number]
--- NOTE | 2017-01-02 14:40 | PN ---
Date/Time of Note Date/Time of Note DATE: 01/02/17 TIME: 14:37 Assessment/Plan VTE Prophylaxis VTE Prophylaxis Intervention: LMWH Lines/Catheters IV Catheter Type (from Nrs): Saline Lock Urinary Cath still in place: No Assessment/Plan Chief Complaint/Hosp Course Assessment/Plan: 51 F with: 1. Abdominal pain: likely 2/2 liver lesions vs her esophageal ulcer: pain has increased in RUQ since early this AM. - monitor, pain meds as needed - f/u CXR and RUQ U/S to further evaluate 2. Extensive portal vein thrombosis and right hepatic vein thrombosis - continue LMWH, f/u Heme/Onc rec's - need to see if can switch to PO anticoagulant as outpt. 3. Multiple liver lesions : differentials are infection (abscesses vs metastatic) - s/p biopsy. per heme/Onc - does not show metastatic carcinoma or primary primary hepatocellular carcinoma. 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 Also on abx for possible infx source. - f/u final biopsy results. - continue abx (also tx + blood cx as well) 4. Pulmonary nodules and right-sided infiltrates - Nodules were seen on CT / but last CXR showed clear lungs - monitor 5. Uterine mass: likely incidental, although cannot r/o sarcoma, per Heme/ onc. - appreciate Field Crop Farmworker Onc consult - may need biopsy of uterine mass - r/o leiomyosarcoma vs other - f/u their rec's 6. HTN: controlled 7. Iron deficiency anemia s/p PRBC and Iron transfusion - H/H stable - monitor CBC daily 8. S/p Alpha hemolytic strep bacteremia rule out contaminant - f/u ID rec's, on abx 9. Elevated CA 125 - f/u biopsy and heme/onc rec;s 10. RUE DVT - on lovenox 11. GRICELDA 2/2 ATN from contrast versus Vanco: stabilizing / recovery phase Problems: Subjective 24 Hr Interval Summary Free Text/Dictation Pt briefly evaluated by cellular equipment repairer onc team (further eval to follow), and having RLQ/ RUQ pain radiating to right arm. Exam/Review of Systems Vital Signs Vitals Vital Signs Date Time Temp Pulse Resp B/P Pulse Ox O2 Delivery O2 Flow Rate FiO2 01/02/17 07:49 97.8 75 18 141/81 93 12/30/16 12:20 Room Air 12/30/16 11:15 2 Intake and Output 01/01/17 01/01/17 01/02/17 15:00 23:00 07:00 Intake Total 1460 ml 1100 ml Balance 1460 ml 1100 ml Exam Constitutional: alert, oriented Head: atraumatic, normocephalic Neck: non-tender, supple Respiratory: clear to auscultation Cardiovascular: regular rate and rhythm Gastrointestinal: nl liver, spleen, non-tender, soft Extremities: normal pulses Results Result Diagram: 01/02/17 0453 01/02/17 0453 Results 24 hrs Laboratory Tests Test 01/02/17 04:53 White Blood Count 5.4 Red Blood Count 3.60 L Hemoglobin 9.9 L Hematocrit 31.0 L Mean Corpuscular Volume 86.1 Mean Corpuscular Hemoglobin 27.5 L Mean Corpuscular Hemoglobin Concent 31.9 L Red Cell Distribution Width 19.2 H Platelet Count 606 H Mean Platelet Volume 10.6 H Neutrophils % 64.1 Lymphocytes % 23.9 Monocytes % 8.8 Eosinophils % 2.1 Basophils % 0.7 Nucleated Red Blood Cells % 0.0 Neutrophils # 3.4 Lymphocytes # 1.3 Monocytes # 0.5 Eosinophils # 0.1 Basophils # 0.0 Nucleated Red Blood Cells # 0.0 Sodium Level 138 Potassium Level 3.2 L Chloride Level 101 Carbon Dioxide Level 29 Anion Gap 11 Blood Urea Nitrogen 9 Creatinine 1.15 H Glucose Level 96 Calcium Level 9.0 Phosphorus Level 4.1 Magnesium Level 1.8 Medications Medications Current Medications Ondansetron HCl (Zofran Inj) 4 mg Q6H PRN IV NAUSEA AND/OR VOMITING Last administered on 12/29/16 13:11; Admin Dose 4 MG; Start 12/20/16 at 07:30 Acetaminophen (Tylenol Tab) 650 mg Q6H PRN PO PAIN LEVEL 1-3 OR FEVER Last administered on 12/30/16 12:40; Admin Dose 650 MG; Start 12/20/16 at 07:30 Morphine Sulfate (morphine) 4 mg Q4H PRN IV SEVERE PAIN LEVEL 7-10 Last administered on 01/02/17 10:22; Admin Dose 4 MG; Start 12/20/16 at 07:30 Amlodipine Besylate (Norvasc) 5 mg DAILY PO Last administered on 01/02/17 08: 46; Admin Dose 5 MG; Start 12/21/16 at 09:00 Acetaminophen/ Hydrocodone Bitart ([place] (5/325)) 1 tab Q6H PRN PO PAIN LEVEL 7 -10 Last administered on 01/02/17 02:35; Admin Dose 1 TAB; Start 12/30/16 at 18 :00 Enoxaparin Sodium (Lovenox) 80 mg Q12 SC Last administered on 01/02/17 08:48; Admin Dose 80 MG; Start 12/30/16 at 21:00 Pantoprazole (Protonix Tab) 40 mg BID@06,18 PO Last administered on 01/02/17 05:50; Admin Dose 40 MG; Start 01/01/17 at 18:00 VERONICA FERGUSON Jan 02, 2017 14:40
--- NOTE | 2017-01-02 15:21 | PN ---
Date/Time of Note Date/Time of Note DATE: 01/02/17 TIME: 15:16 Assessment/Plan VTE Prophylaxis VTE Prophylaxis Intervention: ambulation Lines/Catheters IV Catheter Type (from [facility]): Saline Lock Urinary Cath still in place: No Assessment/Plan Assessment/Plan Assessment * Abdominal pain right upper quadrant * Multiple lesions in the liver rule out metastatic versus abscess MRI . Extensive intra and extrahepatic portal vein thrombosis. . Multiple ill-defined focal liver lesions in the right hepatic lobe. R/O infectious vs malignancy Post liver biopsy/pathology pending * Portal vein thrombosis * Anemia Colonoscopy Normal colonic mucosa to the cecum. Moderate size internal hemorrhoids. EGD . 6 mm esophageal ulcer with no stigmata. . Small hiatal hernia. Gastritis, rule out Helicobacter pylori infection. 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 -- Remaining liver parenchyma shows focal portal fibrosis and focal fatty change. COMMENT: Included in the differential diagnosis are inflammatory myofibroblastic tumor and IgG4 related disease. However, immunohistochemical stain mitigate against an inflammatory myofibroblastic tumor. IgG4 related disease cannot be excluded. This case will be sent in consultation to Dr. Carlos Garcia of [facility] and a final report will follow. Exam/Review of Systems Vital Signs Vitals Vital Signs Date Time Temp Pulse Resp B/P Pulse Ox O2 Delivery O2 Flow Rate FiO2 01/02/17 07:49 97.8 75 18 141/81 93 12/30/16 12:20 Room Air 12/30/16 11:15 2 Intake and Output 01/01/17 01/01/17 01/02/17 15:00 23:00 07:00 Intake Total 1460 ml 1100 ml Balance 1460 ml 1100 ml Exam Constitutional: alert, frail Neck: non-tender, supple Respiratory: clear to auscultation, diminished breath sounds, normal air movement Cardiovascular: nl pulses, regular rate and rhythm Gastrointestinal: distended, soft, tender (right upper quadrant), No rebound or guarding Musculoskeletal: nl extremities to inspection, nl gait and stance Extremities: normal pulses Neurological: nl mental status, nl speech Skin: nl turgor, No rash or lesions Lymph: nl lymph nodes Results Result Diagram: 01/02/1745201/02/17452 Results 24 hrs Laboratory Tests Test 01/02/17 04:53 White Blood Count 5.4 Red Blood Count 3.60 L Hemoglobin 9.9 L Hematocrit 31.0 L Mean Corpuscular Volume 86.1 Mean Corpuscular Hemoglobin 27.5 L Mean Corpuscular Hemoglobin Concent 31.9 L Red Cell Distribution Width 19.2 H Platelet Count 606 H Mean Platelet Volume 10.6 H Neutrophils % 64.1 Lymphocytes % 23.9 Monocytes % 8.8 Eosinophils % 2.1 Basophils % 0.7 Nucleated Red Blood Cells % 0.0 Neutrophils # 3.4 Lymphocytes # 1.3 Monocytes # 0.5 Eosinophils # 0.1 Basophils # 0.0 Nucleated Red Blood Cells # 0.0 Sodium Level 138 Potassium Level 3.2 L Chloride Level 101 Carbon Dioxide Level 29 Anion Gap 11 Blood Urea Nitrogen 9 Creatinine 1.15 H Glucose Level 96 Calcium Level 9.0 Phosphorus Level 4.1 Magnesium Level 1.8 Medications Medications Current Medications Ondansetron HCl (Zofran Inj) 4 mg Q6H PRN IV NAUSEA AND/OR VOMITING Last administered on 12/29/16 13:11; Admin Dose 4 MG; Start 12/20/16 at 07:30 Acetaminophen (Tylenol Tab) 650 mg Q6H PRN PO PAIN LEVEL 1-3 OR FEVER Last administered on 12/30/16 12:40; Admin Dose 650 MG; Start 12/20/16 at 07:30 Morphine Sulfate (morphine) 4 mg Q4H PRN IV SEVERE PAIN LEVEL 7-10 Last administered on 01/02/17 15:13; Admin Dose 4 MG; Start 12/20/16 at 07:30 Amlodipine Besylate (Norvasc) 5 mg DAILY PO Last administered on 01/02/17 08: 46; Admin Dose 5 MG; Start 12/21/16 at 09:00 Acetaminophen/ Hydrocodone Bitart ([place] (5/325)) 1 tab Q6H PRN PO PAIN LEVEL 7 -10 Last administered on 01/02/17 02:35; Admin Dose 1 TAB; Start 12/30/16 at 18 :00 Enoxaparin Sodium (Lovenox) 80 mg Q12 SC Last administered on 01/02/17 08:48; Admin Dose 80 MG; Start 12/30/16 at 21:00 Pantoprazole (Protonix Tab) 40 mg BID@06,18 PO Last administered on 01/02/17 05:50; Admin Dose 40 MG; Start 01/01/17 at 18:00 NARENDRA FINLEY NP Jan 02, 2017 15:21
[2017-01-02] MEDS: HYDROmorphONE 1 MG/ML SYG IV PRN (17:58)
--- NOTE | 2017-01-02 19:04 | RADRPT ---
PROCEDURE: US Abdomen. CLINICAL INDICATION: Abdominal pain. TECHNIQUE: Multiple real-time images were acquired of the patient's right upper quadrant utilizing a high resolution transducer. The images were reviewed on a high-resolution PACS workstation. COMPARISON: Ultrasound from 12/28/2016 and MRI of the abdomen from 12/28/2016 and ultrasound-guide d biopsy procedure from 12/30/2016 FINDINGS: Exam is limited secondary to body habitus. The liver demonstrate multiple heterogeneous nodular les ions in the right hepatic lobe. The largest lesion is hypoechoic in appearance and measures 2.8 cm in maximal diameter. The portal vein shows diminished color flow. The liver measures 15.8 cm in size . No gallstones are identified within the gallbladder. There is no pericholecystic fluid. The gallb ladder wall measures 1.9 mm in size. No intrahepatic biliary dilatation is seen. The common bile d uct measures 3.9 mm in maximal dimension. The visualized portions of the pancreas are unremarkable. A small amount of free fluid is identified. The right kidney is of normal size, and demonstrate normal echogenicity and morphology. The right k idney measures 9.7 cm. The right renal cyst is seen measuring 9 mm in greatest diameter. There are is no dilatation of the right collecting system. There are no perinephric fluid collections. Ther e are no areas of increased echogenicity to suggest nephrolithiasis. IMPRESSION: 1. Multiple nodular heterogeneous nodular lesions in the right hepatic lobe again seen which has no t changed significantly. 2. Diminished significant color flow in the main portal vein which may indicate thrombosis and was seen on the MRI of the abdomen from 12/28/2016. 3. Small volume of ascites again noted. RPTAT: HPNM Physician Kathrin Date Time Electronically viewed and signed by Physician Kathrin on 01/02/2017 19:03 /
[2017-01-02] MEDS: ONDANSETRON 4 MG INJ IV PRN (20:45)
[2017-01-02 22:14] VITALS: BP 123/71; RESP 20
[2017-01-03] MEDS: morphine 4 MG/ML VIAL IV PRN ×2 (01:39→06:44)
[2017-01-03 05:32] LABS: ADD SCAN DIFF NO
[2017-01-03 05:43] LABS: BASOPHILS % 0.3 % (0.0-2.0); EOSINOPHILS % 0.2 % (0.0-7.0); HEMATOCRIT 26.5 % (37.0-47.0); HEMOGLOBIN 8.2 g/dl (12.0-16.0); LYMPHOCYTES # 1.7 10^3/ul (0.8-2.9); LYMPHOCYTES % 15.5 % (15.0-51.0); MEAN CORPUSCULAR HEMOGLOBIN 27.2 pg (29.0-33.0); MEAN CORPUSCULAR HGB CONC 30.9 g/dl (32.0-37.0); MEAN PLATELET VOLUME 10.6 fl (7.4-10.4); MONOCYTE # 0.8 10^3/ul (0.3-0.9); MONOCYTES % 7.2 % (0.0-11.0); NEUTROPHIL # 8.4 10^3/ul (1.6-7.5); NEUTROPHILS % 76.3 % (39.0-77.0); RED BLOOD COUNT 3.01 10^6/ul (4.20-5.40); RED CELL DISTRIBUTION WIDTH 19.4 % (11.5-14.5)
[2017-01-03 06:12] LABS: CALCIUM 9.2 mg/dl (8.4-10.2); CREATININE 1.33 mg/dl (0.44-1.00); MAGNESIUM 1.8 mg/dl (1.7-2.5); PHOSPHORUS 5.2 mg/dl (2.5-4.9); POTASSIUM 4.3 mmol/L (3.5-5.1)
[2017-01-03] MEDS: PANTOPRAZOLE (EC) 40 MG TAB PO SCH ×2 (06:39→17:14)
[2017-01-03] MEDS: HYDROmorphONE 1 MG/ML SYG IV PRN ×3 (06:43→23:44)
[2017-01-03 06:53] LABS: PLATELET COUNT 575 10^3/UL (140-415)
[2017-01-03 07:39] VITALS: BP 147/80; RESP 20
[2017-01-03] MEDS: AMLODIPINE 5 MG TAB PO SCH (09:01)
[2017-01-03] MEDS: ENOXAPARIN 80 MG/0.8 ML SYG SC SCH ×2 (09:14→21:57)
--- NOTE | 2017-01-03 09:56 | PN ---
Date/Time of Note Date/Time of Note DATE: 01/03/17 TIME: 09:52 Assessment/Plan VTE Prophylaxis VTE Prophylaxis Intervention: other (per primary) Lines/Catheters IV Catheter Type (from Nrsg): Saline Lock Urinary Cath still in place: No Assessment/Plan Assessment/Plan No new suggestions. DECK SUPERVISOR to evaluate uterine mass. We will follow intermittently. Subjective 24 Hr Interval Summary Free Text/Dictation Pt is sitting up now. No new complaints. Exam/Review of Systems Vital Signs Vitals Vital Signs Date Time Temp Pulse Resp B/P Pulse Ox O2 Delivery O2 Flow Rate FiO2 01/03/17 07:39 98.2 92 20 147/80 92 12/30/16 12:20 Room Air 12/30/16 11:15 2 Intake and Output 01/02/17 01/02/17 01/03/17 15:00 23:00 07:00 Intake Total 960 ml 580 ml Balance 960 ml 580 ml Exam Constitutional: alert, oriented Respiratory: clear to auscultation Cardiovascular: regular rate and rhythm Gastrointestinal: other (obese) Results Result Diagram: 01/03/17 0435 01/03/17 0435 Results 24 hrs Laboratory Tests Test 01/03/17 04:35 White Blood Count 11.0 #H Red Blood Count 3.01 L Hemoglobin 8.2 L Hematocrit 26.5 L Mean Corpuscular Volume 88.0 Mean Corpuscular Hemoglobin 27.2 L Mean Corpuscular Hemoglobin Concent 30.9 L Red Cell Distribution Width 19.4 H Platelet Count 575 H Mean Platelet Volume 10.6 H Neutrophils % 76.3 Lymphocytes % 15.5 Monocytes % 7.2 Eosinophils % 0.2 Basophils % 0.3 Nucleated Red Blood Cells % 0.0 Neutrophils # 8.4 H Lymphocytes # 1.7 Monocytes # 0.8 Eosinophils # 0.0 Basophils # 0.0 Nucleated Red Blood Cells # 0.0 Sodium Level 136 Potassium Level 4.3 Chloride Level 100 Carbon Dioxide Level 26 Anion Gap 14 Blood Urea Nitrogen 13 Creatinine 1.33 H Glucose Level 115 Calcium Level 9.2 Phosphorus Level 5.2 H Magnesium Level 1.8 Medications Medications Current Medications Ondansetron HCl (Zofran Inj) 4 mg Q6H PRN IV NAUSEA AND/OR VOMITING Last administered on 01/02/17t 20:45; Admin Dose 4 MG; Start 12/20/16 at 07:30 Acetaminophen (Tylenol Tab) 650 mg Q6H PRN PO PAIN LEVEL 1-3 OR FEVER Last administered on 12/30/16 12:40; Admin Dose 650 MG; Start 12/20/16 at 07:30 Morphine Sulfate (morphine) 4 mg Q4H PRN IV SEVERE PAIN LEVEL 7-10 Last administered on 01/03/17 06:44; Admin Dose 4 MG; Start 12/20/16 at 07:30 Amlodipine Besylate (Norvasc) 5 mg DAILY PO Last administered on 01/03/17 09: 01; Admin Dose 5 MG; Start 12/21/16 at 09:00 Acetaminophen/ Hydrocodone Bitart ([place] (5/325)) 1 tab Q6H PRN PO PAIN LEVEL 7 -10 Last administered on 01/02/17 02:35; Admin Dose 1 TAB; Start 12/30/16 at 18 :00 Enoxaparin Sodium (Lovenox) 80 mg Q12 SC Last administered on 01/03/17 09:14; Admin Dose 80 MG; Start 12/30/16 at 21:00 Pantoprazole (Protonix Tab) 40 mg BID@,18 PO Last administered on 01/03/17 06:39; Admin Dose 40 MG; Start 01/01/17 at 18:00 Hydromorphone HCl (Dilaudid) 1 mg Q4H PRN IV SEVERE PAIN LEVEL 7-10 Last administered on 01/02/17 17:58; Admin Dose 1 MG; Start 01/02/17 at 17:45 BENJY TONG MD Jan 03, 2017 09:56
--- NOTE | 2017-01-03 10:17 | PN ---
DATE: 01/03/2017 SUBJECTIVE: The patient is stable. No acute events overnight. No fevers, chills, nausea, vomiting . OBJECTIVE: VITAL SIGNS: Blood pressure 147/80, respirations 20, pulse 92, temperature 98.2. HEENT: Head is normocephalic. Pupils are reactive to light. NECK: Supple. HEART: Regular rate. LUNGS: Show diminished breath sounds at the base. ABDOMEN: Soft, nontender to palpation. No rebound or guarding. EXTREMITIES: Negative for clubbing, cyanosis. No edema. DERMATOLOGIC: No rashes. MUSCULOSKELETAL: No joint effusions. NEUROLOGIC: No change in exam. MEDICATIONS: The patient's medications have been reviewed. LABORATORY DATA: Shows a white count of 11.9, hemoglobin 8.2, hematocrit 26.5, platelet count 575. Sodium is 136, potassium 4.3, chloride 100, BUN 13, creatinine 1.33, phosphorus is 5.2. ASSESSMENT AND PLAN: 1. Nonoliguric acute kidney injury with previous baseline creatinine 0.8 mg/dL. Etiology of acute kidney injury is secondary to contrast-associated nephropathy. The patient's renal function has imp roved, although last 24 hours. Creatinine increased. This may be due to hemodynamics. At this poi nt, continue current treatment plan, supportive care, renally dose all meds. 2. Anemia. Continue to monitor hemoglobin and hematocrit levels. 3. Mineral bone disease. Continue to monitor calcium and phosphorus levels. 4. Portal vein thrombosis. Continue Lovenox. 5. Liver lesions, etiology is felt to be inflammatory, possible abscess. Continue to monitor. 6. Uterine mass. The patient is being followed by HANDBAG OPERATOR. Follow their recommendations. 7. Hypertension. Continue current blood pressure regimen. 8. Sepsis secondary to bacteremia. Continue current antibiotic therapy. Dictated By: MILLY GUTHRIE/DAR Conf#: [id number] DID#: [id number]
--- NOTE | 2017-01-03 10:33 | PN ---
Date/Time of Note Date/Time of Note DATE: 01/03/17 TIME: 10:26 Assessment/Plan VTE Prophylaxis VTE Prophylaxis Intervention: contraindicated Lines/Catheters [facility]from [facility] Saline Lock Urinary Cath still in place: No Assessment/Plan Assessment/Plan Assessment * Abdominal pain right upper quadrant resolved * Multiple lesions in the liver rule out metastatic versus abscess MRI . Extensive intra and extrahepatic portal vein thrombosis. . Multiple ill-defined focal liver lesions in the right hepatic lobe. R/O infectious vs malignancy Post liver biopsy/pathology pending * Portal vein thrombosis * Anemia stable Colonoscopy Normal colonic mucosa to the cecum. Moderate size internal hemorrhoids. EGD . 6 mm esophageal ulcer with no stigmata. . Small hiatal hernia. Gastritis, rule out Helicobacter pylori infection. Plan * adequate pain control * awaiting biopsy result * Colace bid * Continue present management * case discussed with Dr Raphael * Further orders will depend on clinical course Subjective 24 Hr Interval Summary Free Text/Dictation * Course reviewed with RN * Patient seen and examined * abdominal pain improved compared to yesterday * no bowel movement 5 days Exam/Review of Systems Vital Signs Vitals Vital Signs Date Time Temp Pulse Resp B/P Pulse Ox O2 Delivery O2 Flow Rate FiO2 01/03/17 07:39 98.2 92 20 147/80 92 12/30/16 12:20 Room Air 12/30/16 11:15 2 Intake and Output 01/02/17 01/02/17 01/03/17 15:00 23:00 07:00 Intake Total 960 ml 580 ml Balance 960 ml 580 ml Exam Constitutional: alert Head: normocephalic Eyes: nl conjunctiva Neck: non-tender, supple Respiratory: clear to auscultation, normal air movement Cardiovascular: nl pulses, regular rate and rhythm Gastrointestinal: nl liver, spleen, non-tender, soft, No rebound or guarding Musculoskeletal: nl extremities to inspection, nl gait and stance Extremities: normal pulses Neurological: nl speech, nl strength Skin: nl turgor, No rash or lesions Lymph: nl lymph nodes Results Result Diagram: 01/03/17 0435 01/03/17 0435 Results 24 hrs Laboratory Tests Test 01/03/17 04:35 White Blood Count 11.0 #H Red Blood Count 3.01 L Hemoglobin 8.2 L Hematocrit 26.5 L Mean Corpuscular Volume 88.0 Mean Corpuscular Hemoglobin 27.2 L Mean Corpuscular Hemoglobin Concent 30.9 L Red Cell Distribution Width 19.4 H Platelet Count 575 H Mean Platelet Volume 10.6 H Neutrophils % 76.3 Lymphocytes % 15.5 Monocytes % 7.2 Eosinophils % 0.2 Basophils % 0.3 Nucleated Red Blood Cells % 0.0 Neutrophils # 8.4 H Lymphocytes # 1.7 Monocytes # 0.8 Eosinophils # 0.0 Basophils # 0.0 Nucleated Red Blood Cells # 0.0 Sodium Level 136 Potassium Level 4.3 Chloride Level 100 Carbon Dioxide Level 26 Anion Gap 14 Blood Urea Nitrogen 13 Creatinine 1.33 H Glucose Level 115 Calcium Level 9.2 Phosphorus Level 5.2 H Magnesium Level 1.8 Medications Medications Current Medications Ondansetron HCl (Zofran Inj) 4 mg Q6H PRN IV NAUSEA AND/OR VOMITING Last administered on 01/02/17 20:45; Admin Dose 4 MG; Start 12/20/16 at 07:30 Acetaminophen (Tylenol Tab) 650 mg Q6H PRN PO PAIN LEVEL 1-3 OR FEVER Last administered on 12/30/16 12:40; Admin Dose 650 MG; Start 12/20/16 at 07:30 Morphine Sulfate (morphine) 4 mg Q4H PRN IV SEVERE PAIN LEVEL 7-10 Last administered on 01/03/17 06:44; Admin Dose 4 MG; Start 12/20/16 at 07:30 Amlodipine Besylate (Norvasc) 5 mg DAILY PO Last administered on 01/03/17 09: 01; Admin Dose 5 MG; Start 12/21/16 at 09:00 Acetaminophen/ Hydrocodone Bitart ([place] (5/325)) 1 tab Q6H PRN PO PAIN LEVEL 7 -10 Last administered on 01/02/17 02:35; Admin Dose 1 TAB; Start 12/30/16 at 18 :00 Enoxaparin Sodium (Lovenox) 80 mg Q12 SC Last administered on 01/03/17 09:14; Admin Dose 80 MG; Start 12/30/16 at 21:00 Pantoprazole (Protonix Tab) 40 mg BID@,18 PO Last administered on 01/03/17 06:39; Admin Dose 40 MG; Start 01/01/17 at 18:00 Hydromorphone HCl (Dilaudid) 1 mg Q4H PRN IV SEVERE PAIN LEVEL 7-10 Last administered on 01/02/17t 17:58; Admin Dose 1 MG; Start 01/02/17 at 17:45 NARENDRA FINLEY NP Jan 03, 2017 10:32
--- NOTE | 2017-01-03 12:49 | CONS ---
Date/Time of Note Date/Time of Note DATE: 01/03/17 TIME: 12:47 Assessment/Plan Assessment/Plan Chief Complaint/Hosp Course SUBJECTIVE: Patient is alert, els better, no fevers, nad PHYSICAL EXAMINATION: GENERAL: This is an obese, well-developed, middle-aged woman, who is alert, in no distress. HEENT: Head atraumatic, normocephalic. Sclerae anicteric. Buccal mucosa pink. NECK: Supple. CHEST: Chest rise is symmetrical. Breath sounds clear. HEART: S1, S2. ABDOMEN: Soft, bowel tones present. EXTREMITIES: No cyanosis. ASSESSMENT: 1. Hepatic lesion. Status post liver biopsy that revealed no abscess and no evidence of metastatic disease. 2. Pelvic mass. The patient is being evaluated by Dr. Jaimes. 3. Status post alpha hemolytic strep bacteremia. 4. Obesity. 5. Anemia and acute renal failure. 6. Esophageal ulceration, per EGD. PLAN: The patient remains hemodynamically stable. Completed abx, continue present care, f/u GI/oncology rec-s [facility] staff Problems: Consultation Date/Type/Reason Admit Date/Time Dec 19, 2016 at 21:34 Initial Consult Date 12/20/16 Type of Consultation: ID Referring Provider: KAHLIL MARTEL Exam/Review of Systems Vital Signs Vitals Vital Signs Date Time Temp Pulse Resp B/P Pulse Ox O2 Delivery O2 Flow Rate FiO2 01/03/17 07:39 98.2 92 20 147/80 92 12/30/16 12:20 Room Air 12/30/16 11:15 2 Intake and Output 01/02/17 01/02/17 01/03/17 15:00 23:00 07:00 Intake Total 960 ml 580 ml Balance 960 ml 580 ml Results Result Diagram: 01/03/17 0435 01/03/17 0435 Results 24 hrs Laboratory Tests Test 01/03/17 04:35 White Blood Count 11.0 #H Red Blood Count 3.01 L Hemoglobin 8.2 L Hematocrit 26.5 L Mean Corpuscular Volume 88.0 Mean Corpuscular Hemoglobin 27.2 L Mean Corpuscular Hemoglobin Concent 30.9 L Red Cell Distribution Width 19.4 H Platelet Count 575 H Mean Platelet Volume 10.6 H Neutrophils % 76.3 Lymphocytes % 15.5 Monocytes % 7.2 Eosinophils % 0.2 Basophils % 0.3 Nucleated Red Blood Cells % 0.0 Neutrophils # 8.4 H Lymphocytes # 1.7 Monocytes # 0.8 Eosinophils # 0.0 Basophils # 0.0 Nucleated Red Blood Cells # 0.0 Sodium Level 136 Potassium Level 4.3 Chloride Level 100 Carbon Dioxide Level 26 Anion Gap 14 Blood Urea Nitrogen 13 Creatinine 1.33 H Glucose Level 115 Calcium Level 9.2 Phosphorus Level 5.2 H Magnesium Level 1.8 Medications Medications Current Medications Ondansetron HCl (Zofran Inj) 4 mg Q6H PRN IV NAUSEA AND/OR VOMITING Last administered on 01/02/17 20:45; Admin Dose 4 MG; Start 12/20/16 at 07:30 Acetaminophen (Tylenol Tab) 650 mg Q6H PRN PO PAIN LEVEL 1-3 OR FEVER Last administered on 12/30/16 12:40; Admin Dose 650 MG; Start 12/20/16 at 07:30 Morphine Sulfate (morphine) 4 mg Q4H PRN IV SEVERE PAIN LEVEL 7-10 Last administered on 01/03/17 06:44; Admin Dose 4 MG; Start 12/20/16 at 07:30 Amlodipine Besylate (Norvasc) 5 mg DAILY PO Last administered on 01/03/17 09: 01; Admin Dose 5 MG; Start 12/21/16 at 09:00 Acetaminophen/ Hydrocodone Bitart ([place] (5/325)) 1 tab Q6H PRN PO PAIN LEVEL 7 -10 Last administered on 01/02/17 02:35; Admin Dose 1 TAB; Start 12/30/16 at 18 :00 Enoxaparin Sodium (Lovenox) 80 mg Q12 SC Last administered on 01/03/17 09:14; Admin Dose 80 MG; Start 12/30/16 at 21:00 Pantoprazole (Protonix Tab) 40 mg BID@18 PO Last administered on 01/03/17 06:39; Admin Dose 40 MG; Start 01/01/17 at 18:00 Hydromorphone HCl (Dilaudid) 1 mg Q4H PRN IV SEVERE PAIN LEVEL 7-10 Last administered on 01/02/17 17:58; Admin Dose 1 MG; Start 01/02/17 at 17:45 Docusate Sodium (Colace) 100 mg BID PO ; Start 01/03/17 at 21:00 NANCY HULL NP Jan 03, 2017 12:49
--- NOTE | 2017-01-03 15:49 | PN ---
Date/Time of Note Date/Time of Note DATE: 01/03/17 TIME: 15:47 Assessment/Plan VTE Prophylaxis VTE Prophylaxis Intervention: LMWH Lines/Catheters IV Catheter Type (from Nrsg): Saline Lock Urinary Cath still in place: No Assessment/Plan Chief Complaint/Hosp Course Assessment/Plan: 51 F with: 1. Abdominal pain: likely 2/2 liver lesions vs her esophageal ulcer: pain has increased in RUQ since early this AM - now improved. CXR and RUQ yesterday neg. - monitor, pain meds as needed - add more meds for constipation as well 2. Extensive portal vein thrombosis and right hepatic vein thrombosis - continue LMWH, f/u Heme/Onc rec's - need to see if can switch to PO anticoagulant as outpt. 3. Multiple liver lesions : differentials are infection (abscesses vs metastatic) - s/p biopsy. per heme/Onc - does not show metastatic carcinoma or primary primary hepatocellular carcinoma. 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 Also on abx for possible infx source. - f/u final biopsy results. - completed per ID rec's (also tx 'ed + blood cx as well) 4. Pulmonary nodules and right-sided infiltrates - Nodules were seen on CT / but last CXR showed clear lungs - monitor, discuss with SEAFOOD AND SERVICE MEAT MANAGER ONC and Heme/onc as well 5. Uterine mass: likely incidental, although cannot r/o sarcoma, per Heme/ onc. - appreciate Associate Professor Of Medicine Onc consult - may need biopsy of uterine mass - r/o leiomyosarcoma vs other - f/u their rec's 6. HTN: controlled 7. Iron deficiency anemia s/p PRBC and Iron transfusion - H/H stable - monitor CBC daily 8. S/p Alpha hemolytic strep bacteremia rule out contaminant - f/u ID rec's, on abx 9. Elevated CA 125 - f/u biopsy and heme/onc rec;s 10. RUE DVT - on lovenox 11. GRICELDA 2/2 ATN from contrast versus Vanco: stabilizing / recovery phase Problems: Subjective 24 Hr Interval Summary Free Text/Dictation Pt has less abd pain today, had BM as well. Exam/Review of Systems Vital Signs Vitals Vital Signs Date Time Temp Pulse Resp B/P Pulse Ox O2 Delivery O2 Flow Rate FiO2 01/03/17 07:39 98.2 92 20 147/80 92 12/30/16 12:20 Room Air 12/30/16 11:15 2 Intake and Output 01/02/17 01/02/17 01/03/17 15:00 23:00 07:00 Intake Total 960 ml 580 ml Balance 960 ml 580 ml Exam Constitutional: alert, oriented Head: atraumatic, normocephalic Neck: non-tender, supple Respiratory: clear to auscultation Cardiovascular: regular rate and rhythm Gastrointestinal: nl liver, spleen, non-tender, soft Extremities: normal pulses Results Result Diagram: 01/03/17 0435 01/03/17 0435 Results 24 hrs Laboratory Tests Test 01/03/17 04:35 White Blood Count 11.0 #H Red Blood Count 3.01 L Hemoglobin 8.2 L Hematocrit 26.5 L Mean Corpuscular Volume 88.0 Mean Corpuscular Hemoglobin 27.2 L Mean Corpuscular Hemoglobin Concent 30.9 L Red Cell Distribution Width 19.4 H Platelet Count 575 H Mean Platelet Volume 10.6 H Neutrophils % 76.3 Lymphocytes % 15.5 Monocytes % 7.2 Eosinophils % 0.2 Basophils % 0.3 Nucleated Red Blood Cells % 0.0 Neutrophils # 8.4 H Lymphocytes # 1.7 Monocytes # 0.8 Eosinophils # 0.0 Basophils # 0.0 Nucleated Red Blood Cells # 0.0 Sodium Level 136 Potassium Level 4.3 Chloride Level 100 Carbon Dioxide Level 26 Anion Gap 14 Blood Urea Nitrogen 13 Creatinine 1.33 H Glucose Level 115 Calcium Level 9.2 Phosphorus Level 5.2 H Magnesium Level 1.8 Medications Medications Current Medications Ondansetron HCl (Zofran Inj) 4 mg Q6H PRN IV NAUSEA AND/OR VOMITING Last administered on 01/02/17 20:45; Admin Dose 4 MG; Start 12/20/16 at 07:30 Acetaminophen (Tylenol Tab) 650 mg Q6H PRN PO PAIN LEVEL 1-3 OR FEVER Last administered on 12/30/16 12:40; Admin Dose 650 MG; Start 12/20/16 at 07:30 Morphine Sulfate (morphine) 4 mg Q4H PRN IV SEVERE PAIN LEVEL 7-10 Last administered on 01/03/17 06:44; Admin Dose 4 MG; Start 12/20/16 at 07:30 Amlodipine Besylate (Norvasc) 5 mg DAILY PO Last administered on 01/03/17 09: 01; Admin Dose 5 MG; Start 12/21/16 at 09:00 Acetaminophen/ Hydrocodone Bitart ([place] (5/325)) 1 tab Q6H PRN PO PAIN LEVEL 7 -10 Last administered on 01/02/17 02:35; Admin Dose 1 TAB; Start 12/30/16 at 18 :00 Enoxaparin Sodium (Lovenox) 80 mg Q12 SC Last administered on 01/03/17 09:14; Admin Dose 80 MG; Start 12/30/16 at 21:00 Pantoprazole (Protonix Tab) 40 mg BID@18 PO Last administered on 01/03/17 06:39; Admin Dose 40 MG; Start 01/01/17 at 18:00 Hydromorphone HCl (Dilaudid) 1 mg Q4H PRN IV SEVERE PAIN LEVEL 7-10 Last administered on 01/02/17 17:58; Admin Dose 1 MG; Start 01/02/17 at 17:45 Docusate Sodium (Colace) 100 mg BID PO ; Start 01/03/17 at 21:00 Senna (Senokot) 1 tab BID PO ; Start 01/03/17 at 21:00 Polyethylene Glycol (Miralax) 8.5 gm DAILY PO ; Start 01/03/17 at 15:30 VERONICA FERGUSON Jan 03, 2017 15:49
[2017-01-03] MEDS ORDERED: NA PHOSPHATE/BIPHOS 133 ML ENEMA PR ONE (16:00)
[2017-01-03] MEDS: HYDROCODONE/APAP (5/325) TAB PO PRN ×2 (16:00→21:54)
--- NOTE | 2017-01-03 17:13 | CONS ---
Date/Time of Note Date/Time of Note DATE: 01/03/17 TIME: 17:12 Consultation Date/Type/Reason Admit Date/Time Dec 19, 2016 at 21:34 Hx of Present Illness Daniel Napoles M.D. 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 The patients indicates s her pain is primarily RUQ and CA-125 is 40. Medical history/ROS: all other systems unremarkable. Surgical history: no significant abdominal procedures. Medications: gardisil Allergies: No active allergies recorded Family Hx: non-contributary Social HX: non-contributary ROS: as above no PMB Colonoscopy Physical Examination General: Alert. HEENT: Pupils are equal, round, reactive to light and accommodation. Neck: Supple with no masses of lymphadenopathy. Breast: Deferred due to recent examination and responsibility of primary care physician. Chest: Clear to auscultation Heart: Normal rhythm with no murmur. Abdomen: RUQ tenderness, no rebound, no ascites nor organomeglay. Pelvic exam: solid central irregular mass consistent with fibroids vs other neoplasm; no cul-de-sac nodularity noted Rectal: confirmatory with pelvic exam. Neurological: Grossly intact Assessment: Inflammatory disease/infectin vs primary liver cancer OR stage IV uteriine sarcoma. Plan: A laparocopic supracervical hysteretomy +/- BSO or myomectomy (whichever is more technically feasible depending on anatomic findings) as well as more extenwive liver biopsy (for diagosis) can very easily be accomplished laparoscopically IFF the patient is medically cleared and Dr. Moran and ID concur that whe would benefit. That way I could remove the entive pelvic mass in question and obtain more hepatic tisue if needed. Note; a D&C would not help as area in question not accessable and FNA of pelic mass not indicated beause if a sarcoma an bleed exvessively. Daniel Napoles M.D. Constitutional: improved, no complaints Eyes: no complaints ENT: no complaints Respiratory: no complaints Cardiovascular: no complaints Gastrointestinal: other, pain Genitourinary: no complaints Musculoskeletal: no complaints Skin: no complaints Neurologic: no complaints Endocrine: no complaints Lymphatic: no complaints Psychological: nl mood/affect, no complaints Immunologic: no complaints Past Medical History Medical History: hypertension Past Surgical History Past Surgical Hx: no surgical history Social History Alcohol Use: none Smoking Status: Never smoker Drug Use: none Exam/Review of Systems Vital Signs Vitals Vital Signs Date Time Temp Pulse Resp B/P Pulse Ox O2 Delivery O2 Flow Rate FiO2 01/03/17 07:39 98.2 92 20 147/80 92 12/30/16 12:20 Room Air 12/30/16 11:15 2 Intake and Output 01/02/17 01/02/17 01/03/17 15:00 23:00 07:00 Intake Total 960 ml 580 ml Balance 960 ml 580 ml Results Result Diagram: 01/03/17 0435 01/03/17 0435 Results 24 hrs Laboratory Tests Test 01/03/17 04:35 White Blood Count 11.0 #H Red Blood Count 3.01 L Hemoglobin 8.2 L Hematocrit 26.5 L Mean Corpuscular Volume 88.0 Mean Corpuscular Hemoglobin 27.2 L Mean Corpuscular Hemoglobin Concent 30.9 L Red Cell Distribution Width 19.4 H Platelet Count 575 H Mean Platelet Volume 10.6 H Neutrophils % 76.3 Lymphocytes % 15.5 Monocytes % 7.2 Eosinophils % 0.2 Basophils % 0.3 Nucleated Red Blood Cells % 0.0 Neutrophils # 8.4 H Lymphocytes # 1.7 Monocytes # 0.8 Eosinophils # 0.0 Basophils # 0.0 Nucleated Red Blood Cells # 0.0 Sodium Level 136 Potassium Level 4.3 Chloride Level 100 Carbon Dioxide Level 26 Anion Gap 14 Blood Urea Nitrogen 13 Creatinine 1.33 H Glucose Level 115 Calcium Level 9.2 Phosphorus Level 5.2 H Magnesium Level 1.8 Medications Medications Current Medications Ondansetron HCl (Zofran Inj) 4 mg Q6H PRN IV NAUSEA AND/OR VOMITING Last administered on 01/02/17t 20:45; Admin Dose 4 MG; Start 12/20/16 at 07:30 Acetaminophen (Tylenol Tab) 650 mg Q6H PRN PO PAIN LEVEL 1-3 OR FEVER Last administered on 12/30/16 12:40; Admin Dose 650 MG; Start 12/20/16 at 07:30 Morphine Sulfate (morphine) 4 mg Q4H PRN IV SEVERE PAIN LEVEL 7-10 Last administered on 01/03/17 06:44; Admin Dose 4 MG; Start 12/20/16 at 07:30 Amlodipine Besylate (Norvasc) 5 mg DAILY PO Last administered on 01/03/17 09: 01; Admin Dose 5 MG; Start 12/21/16 at 09:00 Acetaminophen/ Hydrocodone Bitart ([place] (5/325)) 1 tab Q6H PRN PO PAIN LEVEL 7 -10 Last administered on 01/03/17 16:00; Admin Dose 1 TAB; Start 12/30/16 at 18 :00 Enoxaparin Sodium (Lovenox) 80 mg Q12 SC Last administered on 01/03/17 09:14; Admin Dose 80 MG; Start 12/30/16 at 21:00 Pantoprazole (Protonix Tab) 40 mg BID@,18 PO Last administered on 01/03/17 06:39; Admin Dose 40 MG; Start 01/01/17 at 18:00 Hydromorphone HCl (Dilaudid) 1 mg Q4H PRN IV SEVERE PAIN LEVEL 7-10 Last administered on 01/02/17 17:58; Admin Dose 1 MG; Start 01/02/17 at 17:45 Docusate Sodium (Colace) 100 mg BID PO ; Start 01/03/17 at 21:00 Senna (Senokot) 1 tab BID PO ; Start 01/03/17 at 21:00 Polyethylene Glycol (Miralax) 8.5 gm DAILY PO ; Start 01/03/17 at 15:30 DANIEL NAPOLES MD Jan 03, 2017 17:13
[2017-01-03] MEDS: POLYETHYLENE GLYCOL 17 GM PACKET PO SCH (17:36)
[2017-01-03 19:05] VITALS: BP 129/73; RESP 18
[2017-01-03] MEDS: ONDANSETRON 4 MG INJ IV PRN (20:15)
[2017-01-03] MEDS: DOCUSATE SODIUM 100 MG CAP PO SCH (21:54)
[2017-01-03] MEDS: SENNA TAB PO SCH (21:54)
[2017-01-03 23:42] VITALS: BP 116/55; PULSE 102; RESP 18
[2017-01-04] VITALS (58 sets, daily range): BP systolic 45–134; BP diastolic 17–97; PULSE 108–134; RESP 18–38
[2017-01-04] MEDS: morphine 4 MG/ML VIAL IV PRN ×2 (00:46→06:27)
[2017-01-04] MEDS ORDERED: KETOROLAC 30 MG INJ IV PRN (02:00)
[2017-01-04] MEDS: ONDANSETRON 4 MG INJ IV PRN ×2 (02:47→18:14)
[2017-01-04] MEDS: HYDROmorphONE 1 MG/ML SYG IV PRN (03:56)
[2017-01-04 05:09] LABS: ADD SCAN DIFF NO
[2017-01-04 05:24] LABS: AADO2 Arterial 48.2 mmHg (7.0-24.0); Arterial Base Excess -6.8 mmol/L (-3.0-3); Arterial COHb 0.3 % (0.0-3.0); Arterial Fraction of Oxyhgb 97.9 % (93.0-99.0); Arterial HCO3 17.2 mmol/L (22.0-26.0); Arterial MetHb 0.6 % (0.0-1.5); MODE NASAL CANNULA
[2017-01-04 05:51] LABS: ADD SCAN DIFF NO
[2017-01-04 05:57] LABS: ABNORMAL IP MESSAGE 1; BASOPHILS % 0.1 % (0.0-2.0); EOSINOPHILS % 0.1 % (0.0-7.0); HEMATOCRIT 18.8 % (37.0-47.0); LYMPHOCYTES # 2.9 10^3/ul (0.8-2.9); LYMPHOCYTES % 16.1 % (15.0-51.0); MEAN CORPUSCULAR HEMOGLOBIN 26.8 pg (29.0-33.0); MEAN CORPUSCULAR HGB CONC 30.3 g/dl (32.0-37.0); MEAN CORPUSCULAR VOLUME 88.3 fl (82.0-101.0); MONOCYTE # 1.3 10^3/ul (0.3-0.9); NEUTROPHIL # 13.6 10^3/ul (1.6-7.5); NEUTROPHILS % 75.4 % (39.0-77.0); NUCLEATED RED BLOOD CELLS% 0.2 /100WBC (0.0-0.0); PLATELET COUNT 509 10^3/UL (140-415); RED BLOOD COUNT 2.13 10^6/ul (4.20-5.40); RED CELL DISTRIBUTION WIDTH 19.7 % (11.5-14.5)
[2017-01-04] MEDS ORDERED: SOD CHLORIDE 0.9% 1,000 ML IV ONE ×2 (06:00→10:30)
[2017-01-04 06:20] LABS: HEMOGLOBIN 5.7 g/dl (12.0-16.0)
[2017-01-04 06:22] LABS: CALCIUM 8.9 mg/dl (8.4-10.2); CREATININE 2.07 mg/dl (0.44-1.00); POTASSIUM 4.9 mmol/L (3.5-5.1)
[2017-01-04] MEDS: PANTOPRAZOLE (EC) 40 MG TAB PO SCH ×2 (06:26→18:00)
--- NOTE | 2017-01-04 06:50 | RADRPT ---
PROCEDURE: CT of the abdomen and pelvis without contrast CLINICAL INDICATION: Severe abdominal pain. Recent liver biopsy. TECHNIQUE: Spiral CT images through the abdomen and pelvis without the use of contrast. The admin istered radiation dose is CTDI 20.24 and DLP 1338.31. One or more of the following dose reduction t echniques were used: automated exposure control, adjustment of the mA and/or kV according to patient size, or use of iterative reconstruction technique. COMPARISON: 12/24/2016 FINDINGS: Lack of oral and intravenous contrast somewhat limits evaluation. There is a small to moderate ri ght and tiny left pleural effusion with associated compressive atelectasis. Air bronchograms are se en in the right lower lobe and infectious infiltrate of the right lower lobe cannot be completely ex cluded. Areas of subsegmental atelectasis are otherwise seen.. Moderate pericardial effusion. Norm al heart size. Aortic calcification. There is a large amount of blood adjacent to the liver which is predominantly subcapsular. There is a very large mixed density subcapsular hematoma along the posterior segment right lobe of the liver with a fluid-fluid level within. This measures 8.5 cm AP by 8 cm transverse by 15.3 cm craniocauda d and is consistent with a post biopsy hematoma.. Blood tracks along the right paracolic gutter and a moderate amount of fluid is seen in the pelvis which is mixed density consistent with acute and s ubacute blood. Some blood is present in the left paracolic gutter as well.. A small of blood is se en adjacent to the spleen. The adrenals and pancreas are unremarkable in appearance. 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 There are multiple density is in the intra-abdominal wall consistent with subcutaneous injections with small foci of air within. Moderate liquid stool is seen throughout th e colon. Normal appendix. There is no evidence for bowel obstruction, free air, or abscess. The uterus is enlarged and heterogeneous consistent with the known uterine mass. The ovaries are not we ll seen. No definite adenopathy. There is mild degenerative change of the spine. IMPRESSION: Very large mixed density acute subcapsular hematoma of the liver with moderate blood seen throughout the abdomen and pelvis. Right lower lobe atelectasis or infiltrate and small bilateral effusions. Horseshoe kidneys Results were called to the patient's nurse, Sera, at 01/04/2017 6:47:08 AM . Critical results: Acute intra-abdominal hemorrhage RPTAT: HLBE Kandy Hayes, Physician Date Time Electronically viewed and signed by Kandy Hayes, Physician on 01/04/2017 06:49 KIMBERLY/
[2017-01-04 06:57] LABS: CALCIUM 9.1 mg/dl (8.4-10.2); CREATININE 2.01 mg/dl (0.44-1.00); MAGNESIUM 1.9 mg/dl (1.7-2.5); PHOSPHORUS 6.9 mg/dl (2.5-4.9); POTASSIUM 5.3 mmol/L (3.5-5.1)
[2017-01-04] MEDS ORDERED: LORAZEPAM 2 MG INJ IV ONE ×2 (08:00→19:30)
[2017-01-04] MEDS ORDERED: LORAZEPAM 2 MG INJ ONE (08:20)
[2017-01-04] MEDS ORDERED: SOD CHLORIDE 0.9% 250 ML IV* ONE ×2 (08:41→19:22)
[2017-01-04 08:53] LABS: AADO2 Arterial 383.3 mmHg (7.0-24.0); Allen Test ACCEPTAB; Arterial COHb 0.3 % (0.0-3.0); Arterial Fraction of Oxyhgb 98.1 % (93.0-99.0); Arterial HCO3 10.4 mmol/L (22.0-26.0); Arterial MetHb 0.8 % (0.0-1.5); Arterial Total Hemglobin 4.7 g/dl (12.0-18.0); MODE MASK - NRB
[2017-01-04] MEDS ORDERED: VANCOMYCIN IV PER PHARMACY XX SCH (09:00)
[2017-01-04] MEDS: SENNA TAB PO SCH ×2 (09:00→21:00)
[2017-01-04] MEDS: POLYETHYLENE GLYCOL 17 GM PACKET PO SCH (09:00)
[2017-01-04] MEDS ORDERED: LIDOCAINE 1% (MPF) 5 ML VIAL SC ONE ×2 (09:00→10:00)
[2017-01-04] MEDS: DOCUSATE SODIUM 100 MG CAP PO SCH ×2 (09:00→21:00)
[2017-01-04] MEDS: AMLODIPINE 5 MG TAB PO SCH (09:00)
[2017-01-04] MEDS ORDERED: NA BICARBONATE 8.4% 50 ML SYG ONE (09:09)
--- NOTE | 2017-01-04 09:24 | PN ---
DATE: 01/04/2017 SUBJECTIVE: The patient was transferred from med/surg to telemetry. The patient was noted to be ta chycardic. Overnight the patient was noted to be anemic, with a hemoglobin 5.7. The patient is pen ding blood transfusion. Workup for possible internal bleeding is ongoing. No other acute events no ryley. OBJECTIVE: VITAL SIGNS: Blood pressure is 101/50, respiratory rate 20, pulse 126, temperature 97.8. HEENT: Head is normocephalic. Pupils are reactive to light. NECK: Supple. HEART: Tachycardic. LUNGS: Showed diminished breath sounds at the base. ABDOMEN: Soft, positive tenderness to palpation. EXTREMITIES: Negative for clubbing or cyanosis. No edema. DERMATOLOGIC: No rashes. MUSCULOSKELETAL: Have no joint effusion. NEUROLOGIC: No change in exam. MEDICATIONS: The patient's medications have been reviewed. LABORATORY DATA: Shows sodium 130, potassium 4.9, chloride 95, BUN 17, creatinine 2.07. Lactic aci d 4.8. White count 18.0, hemoglobin 10.7, hematocrit 18.8, platelet count is 509. ASSESSMENT AND PLAN: 1. Nonoliguric acute kidney injury, with a previously normal baseline creatinine. Etiology was ini tially secondary to contrast-associated nephropathy. The patient's renal function has declined in t he last 48 hours, concerning for possible superimposed acute tubular necrosis due to volume depletio n, possible severe anemia, anoxic injury. Plan at this point is to continue IV hydration. Would re commend blood transfusion. Will repeat a UA with microanalysis, check urine electrolytes, will jennifer tor renal function closely. 2. Hyponatremia secondary to acute kidney injury and possible volume depletion. Will continue to m onitor sodium level, with IV fluids. 3. Severe anemia. Etiology may be concerning for possible internal bleed. Would recommend a stat CT scan of the abdomen and pelvis. Will transfuse PRBCs and monitor closely. 4. Mineral bone disorder. Continue to monitor calcium and phosphorus levels. 5. Portal vein thrombosis. The patient was on Lovenox, currently being held. 6. Liver lesion. Status post biopsy. Noted to have inflammatory response. Continue to monitor. 7. Uterine mass. The patient is being followed by gynecology. Follow up recommendations. 8. Hypotension. Likely secondary to possible blood loss, with volume depletion. Continue IV fluid s, continue blood transfusion. 9. Sepsis secondary to bacteremia. Continue the current antibiotic regimen. Dictated By: MILLY GUTHRIE/DAR Conf#: [id number] DID#: [id number]
[2017-01-04] MEDS ORDERED: NA BICARBONATE 8.4% 50 ML SYG IV ONE (09:30)
--- NOTE | 2017-01-04 09:48 | PN ---
Date/Time of Note Date/Time of Note DATE: 01/04/17 TIME: 09:37 Assessment/Plan VTE Prophylaxis VTE Prophylaxis Intervention: contraindicated VTE Contraindication Reason: bleeding Lines/Catheters IV Catheter Type (from Nrs): Saline Lock Urinary Cath still in place: No Assessment/Plan Chief Complaint/Hosp Course Assessment/Plan: 51 F with: 1. Abdominal pain: likely 2/2 liver lesions vs her esophageal ulcer: however + subcapsular hematoma, anemic, met acidosis now, lactic acidosis, severe anemia - pt now to get: IVF's, pRBC's transfusions, IV abx, bicarb,serial H/H's Q6 hrs, FFP, possibly get CT 3 phase liver scan to further evaluate the liver hematoma (but has ARF). - Per hepatobilary surgery, no surgery for now, awaiting CT scan results. IR to decide if need to try and embolize liver area (had liver biopsy 3 days ago) - f/u with this. - add keppra for sz's 2. 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 3. Multiple liver lesions : differentials are infection (abscesses vs metastatic) - s/p biopsy. per heme/Onc - does not show metastatic carcinoma or primary primary hepatocellular carcinoma. 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 Also on abx for possible infx source. - f/u final biopsy results. 4. Pulmonary nodules and right-sided infiltrates - Nodules were seen on CT / but last CXR showed clear lungs - monitor, discuss with [employer] ONC and Heme/onc as well 5. Uterine mass: likely incidental, although cannot r/o sarcoma, per Heme/ onc. - appreciate [employer] Onc consult - may need biopsy of uterine mass - r/o leiomyosarcoma vs other - f/u their rec's 6. HTN: controlled 7. Iron deficiency anemia s/p PRBC and Iron transfusion - H/H stable - monitor CBC daily 8. S/p Alpha hemolytic strep bacteremia rule out contaminant - f/u ID rec's, on abx 9. Elevated CA 125 - f/u biopsy and heme/onc rec;s - consider checking Ca19-9 10. RUE DVT - holding LMWH 11. GRICELDA 2/2 ATN from contrast versus Vanco: more present today - IVF's, monitor , consider renal consult Critical care time spent today = 55 min. Problems: Subjective 24 Hr Interval Summary Free Text/Dictation Rapid response x 2 this AM, pt transferred to ICU, lethargic, + seizure x 1, acidotic, + subcapsular liver hematoma found, getting pRBC transfusion. Exam/Review of Systems Vital Signs Vitals Vital Signs Date Time Temp Pulse Resp B/P Pulse Ox O2 Delivery O2 Flow Rate FiO2 01/04/17 08:42 125 01/04/17 08:06 97.8 20 101/50 100 01/04/17 04:37 Nasal Cannula 01/04/17 00:05 2 Intake and Output 01/03/17 01/03/17 01/04/17 15:00 23:00 07:00 Intake Total 1920 ml 800 ml Balance 1920 ml 800 ml Exam Constitutional: lethargic, now in restraints Head: atraumatic, normocephalic Neck: non-tender, supple Respiratory: clear to auscultation Cardiovascular: regular rate and rhythm Gastrointestinal: + tender, slightly firm, Extremities: cool skin, weak pulses B/L LE Results Result Diagram: 01/04/17 0434 01/04/17 0515 Results 24 hrs Laboratory Tests Test 01/04/17 04:34 01/04/17 04:35 01/04/17 05:09 01/04/17 05:15 White Blood Count 18.0 #H Red Blood Count 2.13 #L Hemoglobin 5.7 #*L Hematocrit 18.8 #L Mean Corpuscular Volume 88.3 Mean Corpuscular Hemoglobin 26.8 L Mean Corpuscular Hemoglobin Concent 30.3 L Red Cell Distribution Width 19.7 H Platelet Count 509 H Mean Platelet Volume 11.0 H Neutrophils % 75.4 Lymphocytes % 16.1 Monocytes % 7.0 Eosinophils % 0.1 Basophils % 0.1 Nucleated Red Blood Cells % 0.2 H Neutrophils # 13.6 H Lymphocytes # 2.9 Monocytes # 1.3 H Eosinophils # 0.0 Basophils # 0.0 Nucleated Red Blood Cells # 0.0 Sodium Level 129 L 130 L Potassium Level 5.3 H 4.9 Chloride Level 98 95 L Carbon Dioxide Level 18 L 21 Anion Gap 18 H 19 H Blood Urea Nitrogen 17 17 Creatinine 2.01 H 2.07 H Glucose Level 168 194 Calcium Level 9.1 8.9 Phosphorus Level 6.9 H Magnesium Level 1.9 Bedside Glucose 207 Blood Gas Specimen Source Blood arterial Arterial Blood Date Drawn 01/04/2017 5:10:58 AM Arterial Blood pH (Temp corrected) 7.415 Arterial Blood pCO2 (Temp correct) 27.4 L Arterial Blood pO2 (Temp corrected) 155.1 H Arterial Blood HCO3 17.2 L Arterial Blood Base Excess -6.8 L Arterial Blood Oxygen Saturation 98.8 H Westley Test N/A Arterial Blood Gas Puncture Site Right Brachial Arterial Blood Carboxyhemoglobin 0.3 Arterial Blood Methemoglobin 0.6 Blood Gas A-a O2 Differential 48.2 H Oxyhemoglobin Percent 97.9 Total Hemoglobin 6.0 L Blood Gas Temperature 37.0 Blood Gas Modality NASAL CANNULA FiO2 33.0 Blood Gas Notified Whom UP Blood Gas Notified Time 01/04/2017 5:24:06 AM Activated Partial Thromboplast Time 50.4 H Lactic Acid Level 4.8 *H Troponin I < 0.012 Test 01/04/17 08:20 01/04/17 08:34 Bedside Glucose 152 Blood Gas Specimen Source Blood arterial Arterial Blood Date Drawn 01/04/2017 8:40:30 AM Arterial Blood pH (Temp corrected) 7.136 *L Arterial Blood pCO2 (Temp correct) 31.6 L Arterial Blood pO2 (Temp corrected) 298.1 H Arterial Blood HCO3 10.4 L Arterial Blood Base Excess -17.0 L Arterial Blood Oxygen Saturation 99.2 H Westley Test ACCEPTAB Arterial Blood Gas Puncture Site Right Radial Arterial Blood Carboxyhemoglobin 0.3 Arterial Blood Methemoglobin 0.8 Blood Gas A-a O2 Differential 383.3 H Oxyhemoglobin Percent 98.1 Total Hemoglobin 4.7 L Blood Gas Temperature 37.0 Blood Gas Modality MASK - NRB FiO2 100.0 Blood Gas Critical Value Read Back L MARGIE GREGORY Blood Gas Notified Whom HEAVEN Blood Gas Notified Time 01/04/2017 8:53:07 AM Medications Medications Current Medications Ondansetron HCl (Zofran Inj) 4 mg Q6H PRN IV NAUSEA AND/OR VOMITING Last administered on 01/04/17t 02:47; Admin Dose 4 MG; Start 12/20/16 at 07:30 Acetaminophen (Tylenol Tab) 650 mg Q6H PRN PO PAIN LEVEL 1-3 OR FEVER Last administered on 12/30/16 12:40; Admin Dose 650 MG; Start 12/20/16 at 07:30 Morphine Sulfate (morphine) 4 mg Q4H PRN IV SEVERE PAIN LEVEL 7-10 Last administered on 01/04/17 06:27; Admin Dose 4 MG; Start 12/20/16 at 07:30 Amlodipine Besylate (Norvasc) 5 mg DAILY PO Last administered on 01/03/17 09: 01; Admin Dose 5 MG; Start 12/21/16 at 09:00 Acetaminophen/ Hydrocodone Bitart ([place] (5/325)) 1 tab Q6H PRN PO PAIN LEVEL 7 -10 Last administered on 01/03/17 21:54; Admin Dose 1 TAB; Start 12/30/16 at 18 :00 Pantoprazole (Protonix Tab) 40 mg BID@06,18 PO Last administered on 01/04/17 06:26; Admin Dose 40 MG; Start 01/01/17 at 18:00 Hydromorphone HCl (Dilaudid) 1 mg Q4H PRN IV SEVERE PAIN LEVEL 7-10 Last administered on 01/04/17 03:56; Admin Dose 1 MG; Start 01/02/17 at 17:45 Docusate Sodium (Colace) 100 mg BID PO Last administered on 01/03/17 21:54; Admin Dose 100 MG; Start 01/03/17 at 21:00 Senna (Senokot) 1 tab BID PO Last administered on 01/03/17 21:54; Admin Dose 1 TAB; Start 01/03/17 at 21:00 Polyethylene Glycol 8.5 gm 8.5 gm DAILY PO Last administered on 01/03/17 17:36 ; Admin Dose 8.5 GM; Start 01/03/17 at 15:30 Cefepime HCl 50 ml @ 100 mls/hr DAILY IVPB ; Start 01/04/17 at 10:00 Vancomycin HCl 1.5 gm/Sodium Chloride 250 ml @ 83.333 mls/ hr ONCE IVPB ; Start 01/04/17 at 10:30; Stop 01/04/17 at 13:29 Vancomycin HCl 1.25 gm/Sodium Chloride 250 ml @ 83.333 mls/ hr Q36H IVPB ; Start 01/05/17 at 22:00 Sodium Bicarbonate/ Sodium Chloride (Na Bicarb/NS) 1,050 ml @ 175 mls/hr Q6H IV ; Start 01/04/17 at 10:00; Status VERONICA BLUM Jan 04, 2017 09:48
[2017-01-04] MEDS ORDERED: CEFEPIME 2GM/50 ML (PMX) 50 ML IVPB SCH (10:00)
[2017-01-04] MEDS ORDERED: BARIUM SULF 2% 450 ML BTL (BERRY SMOOTHIE) PO ONE (10:00)
[2017-01-04 10:10] LABS: ABNORMAL IP MESSAGE 1; HEMATOCRIT 17.7 % (37.0-47.0); MEAN CORPUSCULAR HEMOGLOBIN 27.5 pg (29.0-33.0); MEAN CORPUSCULAR HGB CONC 29.9 g/dl (32.0-37.0); MEAN CORPUSCULAR VOLUME 91.7 fl (82.0-101.0); MEAN PLATELET VOLUME 11.3 fl (7.4-10.4); PLATELET COUNT 502 10^3/UL (140-415); RED BLOOD COUNT 1.93 10^6/ul (4.20-5.40); RED CELL DISTRIBUTION WIDTH 20.1 % (11.5-14.5); WHITE BLOOD COUNT 17.5 10^3/ul (4.8-10.8)
[2017-01-04 10:15] LABS: HEMOGLOBIN 5.3 g/dl (12.0-16.0)
--- NOTE | 2017-01-04 10:20 | CONS ---
Date/Time of Note Date/Time of Note DATE: 01/04/17 TIME: 10:14 Assessment/Plan Assessment/Plan Additional Assessment/Plan ABG was reviewed from this morning which is showing severe metabolic acidosis. Patient also severely anemic. Assessment recommendations; 1. Patient admitted for hepatic abscess with a bilateral it without infiltrates which was suggestive for hematogenous spread to the lungs. 2. Status post liver biopsy. 3. Portal vein thrombosis, patient was on anticoagulation then developed significant subcapsular hematoma involving the liver. 4. Severe metabolic acidosis. 5. Hypotension and sepsis. 6. Severe anemia. Continue current supportive care. Patient will need to be intubated. She may likely need to go to OR for evacuation of liver hematoma. Prognosis is guarded. Patient has been on sodium bicarbonate drip. And sodium bicarbonate also was replaced intravenously. Consultation Date/Type/Reason Admit Date/Time Dec 19, 2016 at 21:34 Initial Consult Date 12/20/16 Type of Consultation: Pulmonary/critical care Referring Provider: KAHLIL MARTEL 24 HR Interval Summary Free Text/Dictation Patient condition is critical. The patient had rapid response called in early this morning because of severe hypotension. A stat abdomen CT was done which is showing large liver hematoma . Patient has been transferred to ICU and is currently having what appears to be labored respiration. Patient also has been hypotensive. Patient getting stat blood confusion, also has been getting FFP. General; middle-aged female, appearing in mild to moderate distress. Awake. Exam/Review of Systems Vital Signs Vitals Vital Signs Date Time Temp Pulse Resp B/P Pulse Ox O2 Delivery O2 Flow Rate FiO2 01/04/17 10:01 127 01/04/17 08:06 97.8 20 101/50 100 01/04/17 04:37 Nasal Cannula 01/04/17 00:05 2 Intake and Output 01/03/17 01/03/17 01/04/17 15:00 23:00 07:00 Intake Total 1920 ml 800 ml Balance 1920 ml 800 ml Exam HEENT exam; supple neck, no JVD. No lymphadenopathy. Midline trachea. No thyromegaly. There is positive use of accessory muscles of respiration. Patient has fair dentition. Pupils are small bilaterally. Chest exam; diminished but clear vessel. S1-S2 audible, no murmurs. Regular rhythm. Abdomen exam; there is right upper quadrant tenderness. Bowel sounds are very sluggish. Extremity exam is; no peripheral edema. [employer] INSPECTOR examination; patient is awake and somewhat responsive. Results Result Diagram: 01/04/17 0434 01/04/17 0515 Results 24 hrs Laboratory Tests Test 01/04/17 04:34 01/04/17 04:35 01/04/17 05:09 01/04/17 05:15 White Blood Count 18.0 #H Red Blood Count 2.13 #L Hemoglobin 5.7 #*L Hematocrit 18.8 #L Mean Corpuscular Volume 88.3 Mean Corpuscular Hemoglobin 26.8 L Mean Corpuscular Hemoglobin Concent 30.3 L Red Cell Distribution Width 19.7 H Platelet Count 509 H Mean Platelet Volume 11.0 H Neutrophils % 75.4 Lymphocytes % 16.1 Monocytes % 7.0 Eosinophils % 0.1 Basophils % 0.1 Nucleated Red Blood Cells % 0.2 H Neutrophils # 13.6 H Lymphocytes # 2.9 Monocytes # 1.3 H Eosinophils # 0.0 Basophils # 0.0 Nucleated Red Blood Cells # 0.0 Sodium Level 129 L 130 L Potassium Level 5.3 H 4.9 Chloride Level 98 95 L Carbon Dioxide Level 18 L 21 Anion Gap 18 H 19 H Blood Urea Nitrogen 17 17 Creatinine 2.01 H 2.07 H Glucose Level 168 194 Calcium Level 9.1 8.9 Phosphorus Level 6.9 H Magnesium Level 1.9 Bedside Glucose 207 Blood Gas Specimen Source Blood arterial Arterial Blood Date Drawn 01/04/2017 5:10:58 AM Arterial Blood pH (Temp corrected) 7.415 Arterial Blood pCO2 (Temp correct) 27.4 L Arterial Blood pO2 (Temp corrected) 155.1 H Arterial Blood HCO3 17.2 L Arterial Blood Base Excess -6.8 L Arterial Blood Oxygen Saturation 98.8 H Westley Test N/A Arterial Blood Gas Puncture Site Right Brachial Arterial Blood Carboxyhemoglobin 0.3 Arterial Blood Methemoglobin 0.6 Blood Gas A-a O2 Differential 48.2 H Oxyhemoglobin Percent 97.9 Total Hemoglobin 6.0 L Blood Gas Temperature 37.0 Blood Gas Modality NASAL CANNULA FiO2 33.0 Blood Gas Notified Whom UP Blood Gas Notified Time 01/04/2017 5:24:06 AM Activated Partial Thromboplast Time 50.4 H Lactic Acid Level 4.8 *H Troponin I < 0.012 Test 01/04/17 08:20 01/04/17 08:34 Bedside Glucose 152 Blood Gas Specimen Source Blood arterial Arterial Blood Date Drawn 01/04/2017 8:40:30 AM Arterial Blood pH (Temp corrected) 7.136 *L Arterial Blood pCO2 (Temp correct) 31.6 L Arterial Blood pO2 (Temp corrected) 298.1 H Arterial Blood HCO3 10.4 L Arterial Blood Base Excess -17.0 L Arterial Blood Oxygen Saturation 99.2 H Westley Test ACCEPTAB Arterial Blood Gas Puncture Site Right Radial Arterial Blood Carboxyhemoglobin 0.3 Arterial Blood Methemoglobin 0.8 Blood Gas A-a O2 Differential 383.3 H Oxyhemoglobin Percent 98.1 Total Hemoglobin 4.7 L Blood Gas Temperature 37.0 Blood Gas Modality MASK - NRB FiO2 100.0 Blood Gas Critical Value Read Back L MARGIE GREGORY Blood Gas Notified Whom MA Blood Gas Notified Time 01/04/2017 8:53:07 AM Medications Medications Current Medications Ondansetron HCl (Zofran Inj) 4 mg Q6H PRN IV NAUSEA AND/OR VOMITING Last administered on 01/04/17 02:47; Admin Dose 4 MG; Start 12/20/16 at 07:30 Acetaminophen (Tylenol Tab) 650 mg Q6H PRN PO PAIN LEVEL 1-3 OR FEVER Last administered on 12/30/16 12:40; Admin Dose 650 MG; Start 12/20/16 at 07:30 Morphine Sulfate (morphine) 4 mg Q4H PRN IV SEVERE PAIN LEVEL 7-10 Last administered on 01/04/17 06:27; Admin Dose 4 MG; Start 12/20/16 at 07:30 Amlodipine Besylate (Norvasc) 5 mg DAILY PO Last administered on 01/03/17 09: 01; Admin Dose 5 MG; Start 12/21/16 at 09:00 Acetaminophen/ Hydrocodone Bitart ([place] (5/325)) 1 tab Q6H PRN PO PAIN LEVEL 7 -10 Last administered on 01/03/17 21:54; Admin Dose 1 TAB; Start 12/30/16 at 18 :00 Pantoprazole (Protonix Tab) 40 mg BID@,18 PO Last administered on 01/04/17 06:26; Admin Dose 40 MG; Start 01/01/17 at 18:00 Hydromorphone HCl (Dilaudid) 1 mg Q4H PRN IV SEVERE PAIN LEVEL 7-10 Last administered on 01/04/17 03:56; Admin Dose 1 MG; Start 01/02/17 at 17:45 Docusate Sodium (Colace) 100 mg BID PO Last administered on 01/03/17 21:54; Admin Dose 100 MG; Start 01/03/17 at 21:00 Senna (Senokot) 1 tab BID PO Last administered on 01/03/17 21:54; Admin Dose 1 TAB; Start 01/03/17 at 21:00 Polyethylene Glycol 8.5 gm 8.5 gm DAILY PO Last administered on 01/03/17 17:36 ; Admin Dose 8.5 GM; Start 01/03/17 at 15:30 Cefepime HCl 50 ml @ 100 mls/hr DAILY IVPB ; Start 01/04/17 at 10:00 Vancomycin HCl 1.5 gm/Sodium Chloride 250 ml @ 83.333 mls/ hr ONCE IVPB ; Start 01/04/17 at 10:30; Stop 01/04/17 at 13:29 Vancomycin HCl 1.25 gm/Sodium Chloride 250 ml @ 83.333 mls/ hr Q36H IVPB ; Start 01/05/17 at 22:00 Sodium Bicarbonate 50 meq/Sodium Chloride 1,000 ml @ 175 mls/hr Q5H43M IV ; Start 01/04/17 at 10:30 Levetiracetam (Keppra 1,000mg/ 100ml (Pmx)) 100 ml @ 400 mls/hr Q12 IVPB ; Start 01/04/17 at 11:00 RONNY VELÁZQUEZ 24, 2017 10:20
[2017-01-04] MEDS ORDERED: VANCOMYCIN 1.5 GM in SOD CHLORIDE 0.9% 250 ML IVPB SCH (10:30)
[2017-01-04] MEDS ORDERED: SOD CHLORIDE 0.9% IV SCH (10:30)
[2017-01-04] MEDS ORDERED: SODIUM BICARBONATE IV SCH (10:30)
[2017-01-04 10:44] LABS: AADO2 Arterial 492.3 mmHg (7.0-24.0); Allen Test ACCEPTAB; Arterial Base Excess -10.9 mmol/L (-3.0-3); Arterial COHb 0.3 % (0.0-3.0); Arterial Fraction of Oxyhgb 97.5 % (93.0-99.0); Arterial MetHb 0.9 % (0.0-1.5); MODE MASK - NRB
[2017-01-04] MEDS ORDERED: NORepinephrine 8MG/250 ML (PMX 250 ML ONE (10:49)
--- NOTE | 2017-01-04 11:38 | RADRPT ---
PROCEDURE: XR Chest. CLINICAL INDICATION: Post PICC evaluation TECHNIQUE: Single view of the chest COMPARISON: Chest radiograph January 02, 2017 FINDINGS: There is a left-sided PICC with the tip ending superiorly in the left IJ. Cardiac silhouette is mildly enlarged there is mild vascular congestion and bibasilar atelectasis. There are pacer pads. Trace bilateral effusions are noted. There is no pneumothorax. There is no acute osseous abnormality. IMPRESSION: 1. Left-sided PICC with its tip ending superiorly into the left IJ. Recommend repositioning. Findings discussed with PICC nurse at 01/04/2017 11:37:51 AM RPTAT: UU .Dallas Espinoza MD, MD Date Time Electronically viewed and signed by .Dallas Espinoza MD, on 01/04/2017 11:38 .K/
--- NOTE | 2017-01-04 11:40 | RADRPT ---
PROCEDURE: XR Chest. CLINICAL INDICATION: PICC line placement evaluation. TECHNIQUE: Single view of the chest COMPARISON: Chest radiograph earlier in the day FINDINGS: There is a left-sided PICC with the tip likely at the lower SVC noting the wire is still likely pres ent at the tip. Cardiac silhouette is mildly enlarged and there is bibasilar atelectasis with trace effusions. There is no pneumothorax. There is no acute osseous abnormality. IMPRESSION: 1. Left-sided PICC with its tip likely at the lower SVC. The wire is likely still present. Recomm end repeat imaging after removal of the wire. Findings discussed with PICC nurse at 01/04/2017 11:39:02 AM RPTAT: UU .Dallas Espinoza MD, Date Time Electronically viewed and signed by .Dallas Espinoza MD, on 01/04/2017 11:39 .K/
--- NOTE | 2017-01-04 11:50 | PN ---
Date/Time of Note Date/Time of Note DATE: 01/04/17 TIME: 11:38 Assessment/Plan VTE Prophylaxis VTE Prophylaxis Intervention: contraindicated Lines/Catheters IV [facility]ter [facility]from [facility] Lock Urinary Cath still in place: No Assessment/Plan Assessment/Plan Assessment * Anemia acute CT scan Intraabdominal hemorrhage Very large mixed density acute subcapsular hematoma of the liver with moderate blood seen throughout the abdomen and pelvis. Right lower lobe atelectasis or infiltrate and small bilateral effusions. Horseshoe kidneys * Multiple lesions in the liver rule out metastatic versus abscess MRI . Extensive intra and extrahepatic portal vein thrombosis. . Multiple ill-defined focal liver lesions in the right hepatic lobe. R/O infectious vs malignancy Post liver biopsy/pathology pending * Portal vein thrombosis * . Plan * monitor hemoglobin and hematocrit and transfuse 1 unit PRBC if HGB <7.5 ,2 units PRBC hemoglobin less than 7 * awaiting biopsy result * Continue present management * surgery consult * case discussed with Dr Raphael * Further orders will depend on clinical course Subjective 24 Hr Interval Summary Free Text/Dictation * Course reviewed with RN * Patient seen and examined * Transferred to ICU because of anemia * latest hemoglobin 5.3 * CT scan abdomen Very large mixed density acute subcapsular hematoma of the liver with moderate blood seen throughout the abdomen and pelvis. Right lower lobe atelectasis or infiltrate and small bilateral effusions. Horse shoe kidney acute intraabdominal hemorrhage Exam/Review of Systems Vital Signs Vitals Vital Signs Date Time Temp Pulse Resp B/P Pulse Ox O2 Delivery O2 Flow Rate FiO2 01/04/17 10:01 127 01/04/17 08:06 97.8 20 101/50 100 01/04/17 04:37 Nasal Cannula 01/04/17 00:05 2 Intake and Output 01/03/17 01/03/17 01/04/17 15:00 23:00 07:00 Intake Total 1920 ml 800 ml Balance 1920 ml 800 ml Exam Constitutional: alert, frail, other Head: atraumatic, normocephalic Eyes: other (pale conjunctiva) Neck: non-tender, supple Respiratory: diminished breath sounds Cardiovascular: other (tachycardic) Gastrointestinal: bowel sounds, distended, non-tender, soft, No rebound or guarding Musculoskeletal: nl extremities to inspection, nl gait and stance Extremities: normal pulses Neurological: nl speech Skin: nl turgor, No rash or lesions Lymph: nl lymph nodes Results Result Diagram: 01/04/17 0515 01/04/17 0515 Results 24 hrs Laboratory Tests Test 01/04/17 04:34 01/04/17 04:35 01/04/17 05:09 01/04/17 05:15 White Blood Count 18.0 #H 17.5 H Red Blood Count 2.13 #L 1.93 L Hemoglobin 5.7 #*L 5.3 *L Hematocrit 18.8 #L 17.7 L Mean Corpuscular Volume 88.3 91.7 Mean Corpuscular Hemoglobin 26.8 L 27.5 L Mean Corpuscular Hemoglobin Concent 30.3 L 29.9 L Red Cell Distribution Width 19.7 H 20.1 H Platelet Count 509 H 502 H Mean Platelet Volume 11.0 H 11.3 H Neutrophils % 75.4 Lymphocytes % 16.1 Monocytes % 7.0 Eosinophils % 0.1 Basophils % 0.1 Nucleated Red Blood Cells % 0.2 H Neutrophils # 13.6 H Lymphocytes # 2.9 Monocytes # 1.3 H Eosinophils # 0.0 Basophils # 0.0 Nucleated Red Blood Cells # 0.0 Sodium Level 129 L 130 L Potassium Level 5.3 H 4.9 Chloride Level 98 95 L Carbon Dioxide Level 18 L 21 Anion Gap 18 H 19 H Blood Urea Nitrogen 17 17 Creatinine 2.01 H 2.07 H Glucose Level 168 194 Calcium Level 9.1 8.9 Phosphorus Level 6.9 H Magnesium Level 1.9 Bedside Glucose 207 Blood Gas Specimen Source Blood arterial Arterial Blood Date Drawn 01/04/2017 5:10:58 AM Arterial Blood pH (Temp corrected) 7.415 Arterial Blood pCO2 (Temp correct) 27.4 L Arterial Blood pO2 (Temp corrected) 155.1 H Arterial Blood HCO3 17.2 L Arterial Blood Base Excess -6.8 L Arterial Blood Oxygen Saturation 98.8 H Westley Test N/A Arterial Blood Gas Puncture Site Right Brachial Arterial Blood Carboxyhemoglobin 0.3 Arterial Blood Methemoglobin 0.6 Blood Gas A-a O2 Differential 48.2 H Oxyhemoglobin Percent 97.9 Total Hemoglobin 6.0 L Blood Gas Temperature 37.0 Blood Gas Modality NASAL CANNULA FiO2 33.0 Blood Gas Notified Whom UP Blood Gas Notified Time 01/04/2017 5:24:06 AM Activated Partial Thromboplast Time 50.4 H Lactic Acid Level 4.8 *H Troponin I < 0.012 CA 19-9 Antigen 12.8 Test 01/04/17 08:20 01/04/17 08:34 01/04/17 10:38 Bedside Glucose 152 Blood Gas Specimen Source Blood arterial Blood arterial Arterial Blood Date Drawn 01/04/2017 8:40:30 AM 01/04/2017 10:20:27 AM Arterial Blood pH (Temp corrected) 7.136 *L 7.338 L Arterial Blood pCO2 (Temp correct) 31.6 L 26.6 L Arterial Blood pO2 (Temp corrected) 298.1 H 194.1 H Arterial Blood HCO3 10.4 L 14.0 L Arterial Blood Base Excess -17.0 L -10.9 L Arterial Blood Oxygen Saturation 99.2 H 98.7 H Westley Test ACCEPTAB ACCEPTAB Arterial Blood Gas Puncture Site Right Radial Right Radial Arterial Blood Carboxyhemoglobin 0.3 0.3 Arterial Blood Methemoglobin 0.8 0.9 Blood Gas A-a O2 Differential 383.3 H 492.3 H Oxyhemoglobin Percent 98.1 97.5 Total Hemoglobin 4.7 L 5.0 L Blood Gas Temperature 37.0 37.0 Blood Gas Modality MASK - NRB MASK - NRB FiO2 100.0 100.0 Blood Gas Critical Value Read Back L MARGIE GREGORY Blood Gas Notified Whom HEAVEN GARCIA Blood Gas Notified Time 01/04/2017 8:53:07 AM 01/04/2017 10:43:59 AM Medications Medications Current Medications Ondansetron HCl (Zofran Inj) 4 mg Q6H PRN IV NAUSEA AND/OR VOMITING Last administered on 01/04/17 02:47; Admin Dose 4 MG; Start 12/20/16 at 07:30 Acetaminophen (Tylenol Tab) 650 mg Q6H PRN PO PAIN LEVEL 1-3 OR FEVER Last administered on 12/30/16 12:40; Admin Dose 650 MG; Start 12/20/16 at 07:30 Morphine Sulfate (morphine) 4 mg Q4H PRN IV SEVERE PAIN LEVEL 7-10 Last administered on 01/04/17 06:27; Admin Dose 4 MG; Start 12/20/16 at 07:30 Amlodipine Besylate (Norvasc) 5 mg DAILY PO Last administered on 01/03/17 09: 01; Admin Dose 5 MG; Start 12/21/16 at 09:00 Acetaminophen/ Hydrocodone Bitart ([place] (5/325)) 1 tab Q6H PRN PO PAIN LEVEL 7 -10 Last administered on 01/03/17 21:54; Admin Dose 1 TAB; Start 12/30/16 at 18 :00 Pantoprazole (Protonix Tab) 40 mg BID@06,18 PO Last administered on 01/04/17 06:26; Admin Dose 40 MG; Start 01/01/17 at 18:00 Hydromorphone HCl (Dilaudid) 1 mg Q4H PRN IV SEVERE PAIN LEVEL 7-10 Last administered on 01/04/17 03:56; Admin Dose 1 MG; Start 01/02/17 at 17:45 Docusate Sodium (Colace) 100 mg BID PO Last administered on 01/03/17 21:54; Admin Dose 100 MG; Start 01/03/17 at 21:00 Senna (Senokot) 1 tab BID PO Last administered on 01/03/17 21:54; Admin Dose 1 TAB; Start 01/03/17 at 21:00 Polyethylene Glycol 8.5 gm 8.5 gm DAILY PO Last administered on 01/03/17 17:36 ; Admin Dose 8.5 GM; Start 01/03/17 at 15:30 Cefepime HCl 50 ml @ 100 mls/hr DAILY IVPB ; Start 01/04/17 at 10:00 Vancomycin HCl 1.5 gm/Sodium Chloride 250 ml @ 83.333 mls/ hr ONCE IVPB ; Start 01/04/17 at 10:30; Stop 01/04/17 at 13:29 Vancomycin HCl 1.25 gm/Sodium Chloride 250 ml @ 83.333 mls/ hr Q36H IVPB ; Start 01/05/17 at 22:00 Sodium Bicarbonate 50 meq/Sodium Chloride 1,000 ml @ 175 mls/hr Q5H43M IV ; Start 01/04/17 at 10:30 Levetiracetam 100 ml @ 400 mls/hr Q12 IVPB ; Start 01/04/17 at 11:00 Norepinephrine/ Dextrose (Levophed/D5W) 500 ml @ 1.87 mls/hr TITRATE IV ; Start 01/04/17 at 11:00 NARENDRA FINLEY NP Jan 04, 2017 11:49
[2017-01-04 12:39] LABS: LYMPHOCYTES # 2.6 10^3/ul (0.8-2.9); MONOCYTE # 0.5 10^3/ul (0.3-0.9); NEUTROPHIL # 13.3 10^3/ul (1.6-7.5)
--- NOTE | 2017-01-04 12:45 | RADRPT ---
PROCEDURE: XR Chest. CLINICAL INDICATION: PICC line placement evaluation TECHNIQUE: Single view of the chest COMPARISON: Chest radiographs earlier in the day FINDINGS: There has been placement of a left-sided PICC. There appears to be a wire with the tip near the lowe r SVC. The tip of the PICC may be within the right ventricle. Cardiac silhouette is mildly enlarged and there is bibasilar atelectasis. Trace bilateral pleural effusions are noted. There is no pneumothorax. There is no acute osseous abnormality. IMPRESSION: 1. Left-sided PICC as above noting the tip of the PICC may be within the right ventricle and there may still be a wire present. Recommend removal of the wire, retraction of the PICC and repeat imagi ng. Findings discussed with Joni Pineda And Iam PICC nurse at 01/04/2017 12:45:05 PM RPTAT: UU .Dallas Espinoza MD, MD Date Time Electronically viewed and signed by .Dallas Espinoza MD, on 01/04/2017 12:45 .K/
--- NOTE | 2017-01-04 14:14 | RADRPT ---
PROCEDURE: Ultrasound guidance for placement of needle in the left upper extremity vein CLINICAL INDICATION: Venous access. TECHNIQUE: Limited sonography of the left upper extremity was performed. Ultrasound images were recorded and st ored in the patient's medical record. COMPARISON: None. FINDINGS: The ultrasound images demonstrate a patent right upper extremity vein. The PICC line was inserted by the PICC line nurse. IMPRESSION: 1. Ultrasound guidance for a needle placement in a left upper extremity vein. 2. The visualized left upper extremity vein is patent. RPTAT: QQ .Dallas Espinoza MD, MD Date Time Electronically viewed and signed by .Dallas Espinoza MD, on 01/04/2017 14:13 .K/
--- NOTE | 2017-01-04 14:17 | RADRPT ---
PROCEDURE: XR Chest. CLINICAL INDICATION: Evaluate PICC line placement TECHNIQUE: Single view of the chest COMPARISON: Chest radiographs earlier in the day FINDINGS: There is a left-sided PICC. The tip of the line appears to be in the right atrium right ventricle a nd should be retracted 5-6 cm. The wire is no longer visualized. There is a pacer pad. The cardiac silhouette is mildly enlarged there is bibasilar atelectasis. There is no pneumothorax. There is no acute osseous abnormality. IMPRESSION: 1. The tip of the left -sided PICC appears to be in the right atrium or right ventricle should be r etracted 5-6 cm. Repeat imaging is advised. Findings discussed with Tran GREGORY at 01/04/2017 2:15:47 PM RPTAT: UU .Dallas Espinoza MD, MD Date Time Electronically viewed and signed by .Dallas Espinoza MD, on 01/04/2017 14:16 .K/
--- NOTE | 2017-01-04 14:27 | QN ---
Documentation Comment Responded to [employer]. 51-year-old female admitted for abdominal pain found to have portal and hepatic vein thromboses, pulmonary nodules, uterine mass and multiple liver lesions which was subsequently biopsied and developed bleeding. Patient apparently had a seizure earlier today, treated with Ativan and subsequently appeared to become apneic. History is obtained entirely from nursing staff and review of previous medical records. There was no asystole, loss of pulses, respiratory arrest with CPR. On my arrival patient was lethargic but arousable. Pupils are equal reactive to light. Breath sounds are equal bilaterally and O2 saturation is 96% with supplemental oxygen. Gag reflex is strong. Heart exam reveals tachycardia but no murmurs. Abdomen is soft with diffuse tenderness localized to the right upper quadrant. No focal neurologic deficit. ABG is pending. There is no indication for acute airway intervention at this time. Dr Pineda is at the bedside and has assumed care of the patient PANTERA BARNEY MD Jan 04, 2017 14:27
[2017-01-04 14:28] LABS: HEMATOCRIT 25.8 % (37.0-47.0); HEMOGLOBIN 8.3 g/dl (12.0-16.0)
[2017-01-04 14:40] LABS: AADO2 Arterial 490.1 mmHg (7.0-24.0); Arterial Base Excess -11.5 mmol/L (-3.0-3); Arterial COHb 0.3 % (0.0-3.0); Arterial Fraction of Oxyhgb 98.3 % (93.0-99.0); Arterial HCO3 12.8 mmol/L (22.0-26.0); Arterial MetHb 0.3 % (0.0-1.5); Arterial Total Hemglobin 9.1 g/dl (12.0-18.0); MODE MASK - NRB
[2017-01-04 15:02] LABS: PARTIAL THROMBOPLASTIN TIME 28.1 Sec (25.0-35.0)
[2017-01-04 15:04] LABS: INR 1.51; PROTIME 18.3 Sec (12.2-14.2); PT RATIO 1.4
--- NOTE | 2017-01-04 15:07 | PN ---
Date/Time of Note Date/Time of Note DATE: 01/04/17 TIME: 15:03 Assessment/Plan VTE Prophylaxis VTE Prophylaxis Intervention: contraindicated VTE Contraindication Reason: bleeding Lines/Catheters IV C[facility] Type [facility]from [facility] Saline Lock Urinary Cath still in place: No Assessment/Plan Assessment/Plan Patient is a 51 year old woman with noted liver masses, s/p biopsy, course complicated by subcapsular hematoma >Hematoma Monitor h/h serially with transfusion for hemoglobin less than 9 g/dL Will recheck coagulation assays as well >Liver masses Interestingly, consistent with lymphoplasmacytic involvement SPEP showed to small spikes but no light chain assay seen on this EMR! Follow-up second opinion sent to [facility]. Subjective 24 Hr Interval Summary Free Text/Dictation Patient transferred to ICU for noted decline in hemoglobin secondary to subcapsular hematoma. Patient currently tachycardic, normotensive, and H/H being monitored carefully. Exam/Review of Systems Vital Signs Vitals Vital Signs Date Time Temp Pulse Resp B/P Pulse Ox O2 Delivery O2 Flow Rate FiO2 01/04/17 12:00 120 01/04/17 08:06 97.8 20 101/50 100 01/04/17 04:37 Nasal Cannula 01/04/17 00:05 2 Intake and Output 01/03/17 01/03/17 01/04/17 15:00 23:00 07:00 Intake Total 1920 ml 800 ml Balance 1920 ml 800 ml Exam Constitutional: distress, well developed Head: atraumatic, normocephalic Eyes: EOMI, nl lids ENMT: mucosa pink and moist, nl nasal mucosa & septum Neck: non-tender, supple Respiratory: clear to auscultation, normal air movement Cardiovascular: other (tachycardic), systolic murmur Gastrointestinal: distended, soft Extremities: cyanosis, normal pulses Results Result Diagram: 01/04/17 1416 01/04/17 0515 Results 24 hrs Laboratory Tests Test 01/04/17 04:34 01/04/17 04:35 01/04/17 05:09 01/04/17 05:15 White Blood Count 18.0 #H 17.5 H Red Blood Count 2.13 #L 1.93 L Hemoglobin 5.7 #*L 5.3 *L Hematocrit 18.8 #L 17.7 L Mean Corpuscular Volume 88.3 91.7 Mean Corpuscular Hemoglobin 26.8 L 27.5 L Mean Corpuscular Hemoglobin Concent 30.3 L 29.9 L Red Cell Distribution Width 19.7 H 20.1 H Platelet Count 509 H 502 H Mean Platelet Volume 11.0 H 11.3 H Neutrophils % 75.4 76.0 Lymphocytes % 16.1 15.0 Monocytes % 7.0 3.0 Eosinophils % 0.1 Basophils % 0.1 Nucleated Red Blood Cells % 0.2 H Neutrophils # 13.6 H 13.3 H Lymphocytes # 2.9 2.6 Monocytes # 1.3 H 0.5 Eosinophils # 0.0 Basophils # 0.0 Nucleated Red Blood Cells # 0.0 Sodium Level 129 L 130 L Potassium Level 5.3 H 4.9 Chloride Level 98 95 L Carbon Dioxide Level 18 L 21 Anion Gap 18 H 19 H Blood Urea Nitrogen 17 17 Creatinine 2.01 H 2.07 H Glucose Level 168 194 Calcium Level 9.1 8.9 Phosphorus Level 6.9 H Magnesium Level 1.9 Bedside Glucose 207 Blood Gas Specimen Source Blood arterial Arterial Blood Date Drawn 01/04/2017 5:10:58 AM Arterial Blood pH (Temp corrected) 7.415 Arterial Blood pCO2 (Temp correct) 27.4 L Arterial Blood pO2 (Temp corrected) 155.1 H Arterial Blood HCO3 17.2 L Arterial Blood Base Excess -6.8 L Arterial Blood Oxygen Saturation 98.8 H Westley Test N/A Arterial Blood Gas Puncture Site Right Brachial Arterial Blood Carboxyhemoglobin 0.3 Arterial Blood Methemoglobin 0.6 Blood Gas A-a O2 Differential 48.2 H Oxyhemoglobin Percent 97.9 Total Hemoglobin 6.0 L Blood Gas Temperature 37.0 Blood Gas Modality NASAL CANNULA FiO2 33.0 Blood Gas Notified Whom UP Blood Gas Notified Time 01/04/2017 5:24:06 AM Band Neutrophils % 6.0 H Activated Partial Thromboplast Time 50.4 H Lactic Acid Level 4.8 *H Troponin I < 0.012 CA 19-9 Antigen 12.8 Test 01/04/17 08:20 01/04/17 08:34 01/04/17 10:38 01/04/17 14:00 Bedside Glucose 152 Blood Gas Specimen Source Blood arterial Blood arterial Blood arterial Arterial Blood Date Drawn 01/04/2017 8:40:30 AM 01/04/2017 10:20:27 AM 01/04/2017 2:15:57 PM Arterial Blood pH (Temp corrected) 7.136 *L 7.338 L 7.341 L Arterial Blood pCO2 (Temp correct) 31.6 L 26.6 L 24.2 L Arterial Blood pO2 (Temp corrected) 298.1 H 194.1 H 198.7 H Arterial Blood HCO3 10.4 L 14.0 L 12.8 L Arterial Blood Base Excess -17.0 L -10.9 L -11.5 L Arterial Blood Oxygen Saturation 99.2 H 98.7 H 98.9 H Westley Test ACCEPTAB ACCEPTAB N/A Arterial Blood Gas Puncture Site Right Radial Right Radial Right Brachial Arterial Blood Carboxyhemoglobin 0.3 0.3 0.3 Arterial Blood Methemoglobin 0.8 0.9 0.3 Blood Gas A-a O2 Differential 383.3 H 492.3 H 490.1 H Oxyhemoglobin Percent 98.1 97.5 98.3 Total Hemoglobin 4.7 L 5.0 L 9.1 L Blood Gas Temperature 37.0 37.0 37.0 Blood Gas Modality MASK - NRB MASK - NRB MASK - NRB FiO2 100.0 100.0 100.0 Blood Gas Critical Value Read Back L MARGIE GREGORY Blood Gas Notified Whom HEAVEN FALCON Blood Gas Notified Time 01/04/2017 8:53:07 AM 01/04/2017 10:43:59 AM 01/04/2017 2:39:59 PM Test 01/04/17 14:16 Hemoglobin 8.3 #L Hematocrit 25.8 #L Prothrombin Time Pending Prothrombin Time Ratio Pending INR International Normalized Ratio Pending Activated Partial Thromboplast Time 28.1 Medications Medications Current Medications Ondansetron HCl (Zofran Inj) 4 mg Q6H PRN IV NAUSEA AND/OR VOMITING Last administered on 01/04/17 02:47; Admin Dose 4 MG; Start 12/20/16 at 07:30 Acetaminophen (Tylenol Tab) 650 mg Q6H PRN PO PAIN LEVEL 1-3 OR FEVER Last administered on 12/30/16 12:40; Admin Dose 650 MG; Start 12/20/16 at 07:30 Morphine Sulfate (morphine) 4 mg Q4H PRN IV SEVERE PAIN LEVEL 7-10 Last administered on 01/04/17 06:27; Admin Dose 4 MG; Start 12/20/16 at 07:30 Amlodipine Besylate (Norvasc) 5 mg DAILY PO Last administered on 01/03/17 09: 01; Admin Dose 5 MG; Start 12/21/16 at 09:00 Acetaminophen/ Hydrocodone Bitart ([place] (5/325)) 1 tab Q6H PRN PO PAIN LEVEL 7 -10 Last administered on 01/03/17 21:54; Admin Dose 1 TAB; Start 12/30/16 at 18 :00 Pantoprazole (Protonix Tab) 40 mg BID@06,18 PO Last administered on 01/04/17 06:26; Admin Dose 40 MG; Start 01/01/17 at 18:00 Hydromorphone HCl (Dilaudid) 1 mg Q4H PRN IV SEVERE PAIN LEVEL 7-10 Last administered on 01/04/17 03:56; Admin Dose 1 MG; Start 01/02/17 at 17:45 Docusate Sodium (Colace) 100 mg BID PO Last administered on 01/03/17 21:54; Admin Dose 100 MG; Start 01/03/17 at 21:00 Senna (Senokot) 1 tab BID PO Last administered on 01/03/17 21:54; Admin Dose 1 TAB; Start 01/03/17 at 21:00 Polyethylene Glycol 8.5 gm 8.5 gm DAILY PO Last administered on 01/03/17 17:36 ; Admin Dose 8.5 GM; Start 01/03/17 at 15:30 Cefepime HCl 50 ml @ 100 mls/hr DAILY IVPB ; Start 01/04/17 at 10:00 Vancomycin HCl 1.25 gm/Sodium Chloride 250 ml @ 83.333 mls/ hr Q36H IVPB ; Start 01/05/17 at 22:00 Sodium Bicarbonate 50 meq/Sodium Chloride 1,000 ml @ 175 mls/hr Q5H43M IV ; Start 01/04/17 at 10:30 Levetiracetam 100 ml @ 400 mls/hr Q12 IVPB ; Start 01/04/17 at 11:00 Norepinephrine/ Dextrose (Levophed/D5W) 500 ml @ 1.87 mls/hr TITRATE IV ; Start 01/04/17 at 11:00 GONZÁLEZ SORIA MD Jan 04, 2017 15:06
--- NOTE | 2017-01-04 15:49 | RADRPT ---
PROCEDURE: XR Chest. CLINICAL INDICATION: Evaluate PICC line placement TECHNIQUE: Single view of the chest COMPARISON: Chest radiographs earlier in the day FINDINGS: There is a left-sided PICC with its tip at the upper right atrium. Consider retraction of 2 cm. Th ere are low lung volumes. There is bibasilar atelectasis. The cardiac silhouette is mildly enlarged. There is no pneumothorax. There is no acute osseous abnormality. IMPRESSION: 1. The tip of the left-sided PICC is noted at the upper right atrium. Consider retraction of 2 cm and repeat imaging. RPTAT: UU .Dallas Espinoza MD, MD Date Time Electronically viewed and signed by .Dallas Espinoza MD, on 01/04/2017 15:49 .K/
--- NOTE | 2017-01-04 15:49 | CONS ---
Date/Time of Note Date/Time of Note DATE: 01/04/17 TIME: 15:37 Assessment/Plan Assessment/Plan Chief Complaint/Hosp Course ID PROGRESS NOTE ABX DAY #1 => Vanco IV + Cefepime 24H INTERVAL SUMMARY * Change in status today: Rapid response x 2 this AM, pt transferred to ICU, lethargic, + seizure x 1, acidotic, + subcapsular liver hematoma found, anemic w /RBC transfusion. * Restarted on IV ABX today per hospitalist * MICRO: Susan: 12/30/16-1025 Rcvd: 12/30/16-1249 Source: LIVER MASS Sp Descrip: Microbiology GRAM STAIN Final POLYMORPH. LEUKOCYTE NONE SEEN . NO ORGANISM SEEN TISSUE (BIOPSY) CULTURE Final No growth after 3 day ID ASSESSMENT: 51 yo F admitted with: 1. SIRS w/change in clinical status today-> ?Aspiration event in setting (+)Szs , (+)Lactic acidosis, symptomatic anemia -> s/p PRBC Tx today * ABX restarted 01/04/17 broad spectrum empiric coverage for HCAP vs alternative etiology? 2. Hepatic lesion. Status post liver biopsy that revealed no abscess and no evidence of metastatic disease. * MICRO Source: LIVER MASS Sp Descrip: Microbiology GRAM STAIN Final POLYMORPH. LEUKOCYTE NONE SEEN . NO ORGANISM SEEN TISSUE (BIOPSY) CULTURE Final No growth after 3 day 3. Pelvic mass. The patient is being evaluated by Dr. Jaimes. 4. Obesity. 5. Anemia and acute renal failure. 6. Esophageal ulceration, per EGD. 3. Portal vein thrombosis. 4. Abnormal CT chest with multiple nodular airspace opacities. 5. Acute renal failure. 6. Anemia ABX ALLERGIES: KNDA INVASIVES: *PIV, CURRENT ABX: ABX DAY #1 => Vanco IV + Cefepime ID RECOMMENDATIONS: 1. Restarted on IV ABX today per hospitalist early am due to change in clinical status today: (+)Liver hematoma w/anemia, (+)SZs activity, (+)Lactic acidosis 2. Continue ABX -- further recs per clinical response, ID colleague team f/u . . Problems: Consultation Date/Type/Reason Admit Date/Time Dec 19, 2016 at 21:34 Initial Consult Date 12/26/16 Type of Consultation: ID Referring Provider: KAHLIL MARTEL Exam/Review of Systems Vital Signs Vitals Vital Signs Date Time Temp Pulse Resp B/P Pulse Ox O2 Delivery O2 Flow Rate FiO2 01/04/17 12:00 120 01/04/17 08:06 97.8 20 101/50 100 01/04/17 04:37 Nasal Cannula 01/04/17 00:05 2 Intake and Output 01/03/17 01/03/17 01/04/17 15:00 23:00 07:00 Intake Total 1920 ml 800 ml Balance 1920 ml 800 ml Results Result Diagram: 01/04/17 1416 01/04/17 0515 Results 24 hrs Laboratory Tests Test 01/04/17 04:34 01/04/17 04:35 01/04/17 05:09 01/04/17 05:15 White Blood Count 18.0 #H 17.5 H Red Blood Count 2.13 #L 1.93 L Hemoglobin 5.7 #*L 5.3 *L Hematocrit 18.8 #L 17.7 L Mean Corpuscular Volume 88.3 91.7 Mean Corpuscular Hemoglobin 26.8 L 27.5 L Mean Corpuscular Hemoglobin Concent 30.3 L 29.9 L Red Cell Distribution Width 19.7 H 20.1 H Platelet Count 509 H 502 H Mean Platelet Volume 11.0 H 11.3 H Neutrophils % 75.4 76.0 Lymphocytes % 16.1 15.0 Monocytes % 7.0 3.0 Eosinophils % 0.1 Basophils % 0.1 Nucleated Red Blood Cells % 0.2 H Neutrophils # 13.6 H 13.3 H Lymphocytes # 2.9 2.6 Monocytes # 1.3 H 0.5 Eosinophils # 0.0 Basophils # 0.0 Nucleated Red Blood Cells # 0.0 Sodium Level 129 L 130 L Potassium Level 5.3 H 4.9 Chloride Level 98 95 L Carbon Dioxide Level 18 L 21 Anion Gap 18 H 19 H Blood Urea Nitrogen 17 17 Creatinine 2.01 H 2.07 H Glucose Level 168 194 Calcium Level 9.1 8.9 Phosphorus Level 6.9 H Magnesium Level 1.9 Bedside Glucose 207 Blood Gas Specimen Source Blood arterial Arterial Blood Date Drawn 01/04/2017 5:10:58 AM Arterial Blood pH (Temp corrected) 7.415 Arterial Blood pCO2 (Temp correct) 27.4 L Arterial Blood pO2 (Temp corrected) 155.1 H Arterial Blood HCO3 17.2 L Arterial Blood Base Excess -6.8 L Arterial Blood Oxygen Saturation 98.8 H Westley Test N/A Arterial Blood Gas Puncture Site Right Brachial Arterial Blood Carboxyhemoglobin 0.3 Arterial Blood Methemoglobin 0.6 Blood Gas A-a O2 Differential 48.2 H Oxyhemoglobin Percent 97.9 Total Hemoglobin 6.0 L Blood Gas Temperature 37.0 Blood Gas Modality NASAL CANNULA FiO2 33.0 Blood Gas Notified Whom UP Blood Gas Notified Time 01/04/2017 5:24:06 AM Band Neutrophils % 6.0 H Activated Partial Thromboplast Time 50.4 H Lactic Acid Level 4.8 *H Troponin I < 0.012 CA 19-9 Antigen 12.8 Test 01/04/17 08:20 01/04/17 08:34 01/04/17 10:38 01/04/17 14:00 Bedside Glucose 152 Blood Gas Specimen Source Blood arterial Blood arterial Blood arterial Arterial Blood Date Drawn 01/04/2017 8:40:30 AM 01/04/2017 10:20:27 AM 01/04/2017 2:15:57 PM Arterial Blood pH (Temp corrected) 7.136 *L 7.338 L 7.341 L Arterial Blood pCO2 (Temp correct) 31.6 L 26.6 L 24.2 L Arterial Blood pO2 (Temp corrected) 298.1 H 194.1 H 198.7 H Arterial Blood HCO3 10.4 L 14.0 L 12.8 L Arterial Blood Base Excess -17.0 L -10.9 L -11.5 L Arterial Blood Oxygen Saturation 99.2 H 98.7 H 98.9 H Westley Test ACCEPTAB ACCEPTAB N/A Arterial Blood Gas Puncture Site Right Radial Right Radial Right Brachial Arterial Blood Carboxyhemoglobin 0.3 0.3 0.3 Arterial Blood Methemoglobin 0.8 0.9 0.3 Blood Gas A-a O2 Differential 383.3 H 492.3 H 490.1 H Oxyhemoglobin Percent 98.1 97.5 98.3 Total Hemoglobin 4.7 L 5.0 L 9.1 L Blood Gas Temperature 37.0 37.0 37.0 Blood Gas Modality MASK - NRB MASK - NRB MASK - NRB FiO2 100.0 100.0 100.0 Blood Gas Critical Value Read Back L MARGIE GREGORY Blood Gas Notified Whom HEAVEN [place] DOUGLASRONALDO Blood Gas Notified Time 01/04/2017 8:53:07 AM 01/04/2017 10:43:59 AM 01/04/2017 2:39:59 PM Test 01/04/17 14:16 Hemoglobin 8.3 #L Hematocrit 25.8 #L Prothrombin Time 18.3 #H Prothrombin Time Ratio 1.4 INR International Normalized Ratio 1.51 Activated Partial Thromboplast Time 28.1 Lactic Acid Level 13.2 *H Medications Medications Current Medications Ondansetron HCl (Zofran Inj) 4 mg Q6H PRN IV NAUSEA AND/OR VOMITING Last administered on 01/04/17 02:47; Admin Dose 4 MG; Start 12/20/16 at 07:30 Acetaminophen (Tylenol Tab) 650 mg Q6H PRN PO PAIN LEVEL 1-3 OR FEVER Last administered on 12/30/16 12:40; Admin Dose 650 MG; Start 12/20/16 at 07:30 Morphine Sulfate (morphine) 4 mg Q4H PRN IV SEVERE PAIN LEVEL 7-10 Last administered on 01/04/17 06:27; Admin Dose 4 MG; Start 12/20/16 at 07:30 Amlodipine Besylate (Norvasc) 5 mg DAILY PO Last administered on 01/03/17 09: 01; Admin Dose 5 MG; Start 12/21/16 at 09:00 Acetaminophen/ Hydrocodone Bitart ([place] (5/325)) 1 tab Q6H PRN PO PAIN LEVEL 7 -10 Last administered on 01/03/17 21:54; Admin Dose 1 TAB; Start 12/30/16 at 18 :00 Pantoprazole (Protonix Tab) 40 mg BID@06,18 PO Last administered on 01/04/17 06:26; Admin Dose 40 MG; Start 01/01/17 at 18:00 Hydromorphone HCl (Dilaudid) 1 mg Q4H PRN IV SEVERE PAIN LEVEL 7-10 Last administered on 01/04/17 03:56; Admin Dose 1 MG; Start 01/02/17 at 17:45 Docusate Sodium (Colace) 100 mg BID PO Last administered on 01/03/17 21:54; Admin Dose 100 MG; Start 01/03/17 at 21:00 Senna (Senokot) 1 tab BID PO Last administered on 01/03/17 21:54; Admin Dose 1 TAB; Start 01/03/17 at 21:00 Polyethylene Glycol 8.5 gm 8.5 gm DAILY PO Last administered on 01/03/17 17:36 ; Admin Dose 8.5 GM; Start 01/03/17 at 15:30 Cefepime HCl 50 ml @ 100 mls/hr DAILY IVPB ; Start 01/04/17 at 10:00 Vancomycin HCl 1.25 gm/Sodium Chloride 250 ml @ 83.333 mls/ hr Q36H IVPB ; Start 01/05/17 at 22:00 Sodium Bicarbonate 50 meq/Sodium Chloride 1,000 ml @ 175 mls/hr Q5H43M IV ; Start 01/04/17 at 10:30 Levetiracetam 100 ml @ 400 mls/hr Q12 IVPB ; Start 01/04/17 at 11:00 Norepinephrine/ Dextrose (Levophed/D5W) 500 ml @ 1.87 mls/hr TITRATE IV ; Start 01/04/17 at 11:00 LASHONDA PATTERSON NP Jan 04, 2017 15:47
--- NOTE | 2017-01-04 15:51 | RADRPT ---
PROCEDURE: XR Chest. CLINICAL INDICATION: Follow-up PICC line placement TECHNIQUE: Single view of the chest COMPARISON: Chest radiographs earlier in the day FINDINGS: There are low lung volumes. The left-sided PICC is noted with its tip at the cavoatrial junction. Cardiac silhouette is enlarged. There is bibasilar atelectasis. There is no pneumothorax. There is no acute osseous abnormality. IMPRESSION: 1. The tip of the left-sided PICC is at the cavoatrial junction. There are low lung volumes with e nlargement the cardiac silhouette. RPTAT: UU .Dallas Espinoza MD, MD Date Time Electronically viewed and signed by .Dallas Espinoza MD, on 01/04/2017 15:51 .K/
[2017-01-04] MEDS: SODIUM BICARBONATE (IV ADD) 100 MEQ in SOD CHLORIDE 0.9% 900 ML IV SCH (16:36)
[2017-01-04] MEDS: LEVETIRACETAM 1000 MG (PMX) 100 ML IVPB SCH ×2 (17:46→23:03)
[2017-01-04 18:32] LABS: HEMATOCRIT 15.8 % (37.0-47.0)
[2017-01-04 18:40] LABS: HEMOGLOBIN 5.3 g/dl (12.0-16.0)
[2017-01-04 18:54] LABS: CALCIUM 7.9 mg/dl (8.4-10.2); CREATININE 3.22 mg/dl (0.44-1.00); POTASSIUM 5.3 mmol/L (3.5-5.1)
[2017-01-04 20:20] LABS: AADO2 Arterial 520.1 mmHg (7.0-24.0); Allen Test ACCEPTAB; Arterial Base Excess -7.7 mmol/L (-3.0-3); Arterial COHb 0.3 % (0.0-3.0); Arterial Fraction of Oxyhgb 97.5 % (93.0-99.0); Arterial HCO3 16.7 mmol/L (22.0-26.0); Arterial MetHb 0.4 % (0.0-1.5); Arterial Total Hemglobin 6.5 g/dl (12.0-18.0); MODE NON-REBREATHING MASK
[2017-01-04 23:29] LABS: ADD SCAN DIFF NO
[2017-01-04 23:30] LABS: ABNORMAL IP MESSAGE 1; BASOPHILS % 0.2 % (0.0-2.0); HEMATOCRIT 19.8 % (37.0-47.0); LYMPHOCYTES # 3.1 10^3/ul (0.8-2.9); LYMPHOCYTES % 13.3 % (15.0-51.0); MEAN CORPUSCULAR HEMOGLOBIN 29.8 pg (29.0-33.0); MEAN CORPUSCULAR HGB CONC 32.8 g/dl (32.0-37.0); MEAN CORPUSCULAR VOLUME 90.8 fl (82.0-101.0); MEAN PLATELET VOLUME 11.4 fl (7.4-10.4); MONOCYTE # 1.7 10^3/ul (0.3-0.9); MONOCYTES % 7.4 % (0.0-11.0); NEUTROPHIL # 17.5 10^3/ul (1.6-7.5); NEUTROPHILS % 75.5 % (39.0-77.0); NUCLEATED RED BLOOD CELLS # 1.2 10^3/ul (0.0-0.0); NUCLEATED RED BLOOD CELLS% 5.2 /100WBC (0.0-0.0); PLATELET COUNT 286 10^3/UL (140-415); RED BLOOD COUNT 2.18 10^6/ul (4.20-5.40); RED CELL DISTRIBUTION WIDTH 17.4 % (11.5-14.5); WHITE BLOOD COUNT 23.1 10^3/ul (4.8-10.8)
[2017-01-04 23:39] LABS: HEMOGLOBIN 6.5 g/dl (12.0-16.0)
[2017-01-05] VITALS (89 sets, daily range): BP systolic 84–136; BP diastolic 19–121; PULSE 112–143; RESP 14–43
[2017-01-05] MEDS: SODIUM BICARBONATE (IV ADD) 100 MEQ in SOD CHLORIDE 0.9% 900 ML IV SCH ×2 (01:09→02:00)
[2017-01-05] MEDS: morphine 2 MG INJ IV PRN (01:13)
[2017-01-05] MEDS: ONDANSETRON 4 MG INJ IV PRN (02:20)
[2017-01-05] MEDS: HYDROmorphONE 1 MG/ML SYG IV PRN (02:21)
[2017-01-05 03:53] LABS: ADD UMIC YES; UR ASCORBIC ACID 20 mg/dL (NEGATIVE); UR BILIRUBIN (Dip) NEGATIVE (NEGATIVE); UR BLOOD (Dip) 3+ mg/dL (NEGATIVE); UR CLARITY CLOUDY (CLEAR); UR COLOR AMBER (YELLOW); UR GLUCOSE (Dip) 1+ mg/dL (NEGATIVE); UR KETONES (Dip) TRACE mg/dL (NEGATIVE); UR LEUKOCYTE ESTERASE (Dip) 1+ Leu/ul (NEGATIVE); UR NITRITE (Dip) NEGATIVE (NEGATIVE); UR RBC > 182 /HPF (0-5); UR SPECIFIC GRAVITY (Dip) 1.021 (1.003-1.030); UR TOTAL PROTEIN (Dip) 2+ mg/dl (NEGATIVE); UR UROBILINOGEN (Dip) NEGATIVE (NEGATIVE)
[2017-01-05 05:15] LABS: AADO2 Arterial 297.1 mmHg (7.0-24.0); Allen Test ACCEPTAB; Arterial Base Excess -4.7 mmol/L (-3.0-3); Arterial COHb 0.3 % (0.0-3.0); Arterial Fraction of Oxyhgb 96.2 % (93.0-99.0); Arterial MetHb 0.3 % (0.0-1.5); Arterial Total Hemglobin 8.2 g/dl (12.0-18.0); MODE HFNC
[2017-01-05 05:33] LABS: ADD SCAN DIFF NO
[2017-01-05 05:54] LABS: ABNORMAL IP MESSAGE 1; HEMATOCRIT 17.6 % (37.0-47.0); MEAN CORPUSCULAR HEMOGLOBIN 29.8 pg (29.0-33.0); MEAN CORPUSCULAR HGB CONC 33.5 g/dl (32.0-37.0); MEAN CORPUSCULAR VOLUME 88.9 fl (82.0-101.0); MEAN PLATELET VOLUME 11.7 fl (7.4-10.4); PLATELET COUNT 193 10^3/UL (140-415); RED BLOOD COUNT 1.98 10^6/ul (4.20-5.40); RED CELL DISTRIBUTION WIDTH 15.6 % (11.5-14.5); WHITE BLOOD COUNT 18.6 10^3/ul (4.8-10.8)
[2017-01-05 05:59] LABS: INR 2.61; PROTIME 28.3 Sec (12.2-14.2); PT RATIO 2.2
[2017-01-05 06:00] LABS: PARTIAL THROMBOPLASTIN TIME 40.6 Sec (25.0-35.0)
[2017-01-05 06:13] LABS: HEMOGLOBIN 5.9 g/dl (12.0-16.0)
--- NOTE | 2017-01-05 06:18 | CONS ---
Date/Time of Note Date/Time of Note DATE: 01/05/17 TIME: 06:13 Assessment/Plan Assessment/Plan Additional Assessment/Plan Assessment recommendations; Patient currently on Levophed at 18 mics per minute. 1. Patient admitted with abdominal pain discovered to have multiple hepatic lesions which are consistent with hepatic abscesses with bilateral pneumonia likely from hematogenous spread to the lungs. 2. Status post liver biopsy. 3. Massive subcapsular hepatic hematoma. 4. Profound hypotension. 5. Renal failure. 6. Severe anemia. Status post multiple packed RBC and FFP transfusion. Continue current treatment. Transfuse 2 more units packed RBC. Minimize IV fluids. Nephrology consult is pending. Patient may need to be dialyzed. Prognosis is guarded. Consultation Date/Type/Reason Admit Date/Time Dec 19, 2016 at 21:34 Initial Consult Date 12/20/16 Type of Consultation: Pulmonary/critical care Referring Provider: KAHLIL MARTEL 24 HR Interval Summary Free Text/Dictation Patient condition is critical. However has not required intubation. Patient remains awake and alert. Complains of right upper quadrant abdominal pain and mild shortness of breath. General exam; middle-aged woman, awake currently in no distress. Exam/Review of Systems Vital Signs Vitals Vital Signs Date Time Temp Pulse Resp B/P Pulse Ox O2 Delivery O2 Flow Rate FiO2 01/05/17 05:15 140 33 133/74 100 01/05/17 05:06 60 01/05/17 05:00 High Flow 01/05/17 03:00 98.1 01/04/17 20:06 6.0 Intake and Output 01/04/17 01/04/17 01/05/17 15:00 23:00 07:00 Intake Total 991.25 ml 1443.75 ml 1466.750 ml Output Total 20 ml 20 ml Balance 991.25 ml 1423.75 ml 1446.750 ml Exam HEENT exam; supple neck, no JVD. No lymphadenopathy. Midline trachea. No thyromegaly. Patient has fair dentition. Pupils are midsize bilaterally. Chest examination; diminished breath sounds bilaterally. S1-S2 audible, no murmurs. Regular rhythm. Abdomen exam is; protuberant. Right upper quadrant tenderness is present. Bowel sounds are audible. Extremity exam; trace generalized edema. Pulses 1+ bilaterally. TWISTER IN examination; no focal motor deficit. Results Result Diagram: 01/04/17 2320 01/04/17 1822 Results 24 hrs Laboratory Tests Test 01/04/17 08:20 01/04/17 08:34 01/04/17 10:38 01/04/17 14:00 Bedside Glucose 152 Blood Gas Specimen Source Blood arterial Blood arterial Blood arterial Arterial Blood Date Drawn 01/04/2017 8:40:30 AM 01/04/2017 10:20:27 AM 01/04/2017 2:15:57 PM Arterial Blood pH (Temp corrected) 7.136 *L 7.338 L 7.341 L Arterial Blood pCO2 (Temp correct) 31.6 L 26.6 L 24.2 L Arterial Blood pO2 (Temp corrected) 298.1 H 194.1 H 198.7 H Arterial Blood HCO3 10.4 L 14.0 L 12.8 L Arterial Blood Base Excess -17.0 L -10.9 L -11.5 L Arterial Blood Oxygen Saturation 99.2 H 98.7 H 98.9 H Westley Test ACCEPTAB ACCEPTAB N/A Arterial Blood Gas Puncture Site Right Radial Right Radial Right Brachial Arterial Blood Carboxyhemoglobin 0.3 0.3 0.3 Arterial Blood Methemoglobin 0.8 0.9 0.3 Blood Gas A-a O2 Differential 383.3 H 492.3 H 490.1 H Oxyhemoglobin Percent 98.1 97.5 98.3 Total Hemoglobin 4.7 L 5.0 L 9.1 L Blood Gas Temperature 37.0 37.0 37.0 Blood Gas Modality MASK - NRB MASK - NRB MASK - NRB FiO2 100.0 100.0 100.0 Blood Gas Critical Value Read Back Piotr HANSON RN Blood Gas Notified Whom HEAVEN FALCON Blood Gas Notified Time 01/04/2017 8:53:07 AM 01/04/2017 10:43:59 AM 01/04/2017 2:39:59 PM Test 01/04/17 14:16 01/04/17 18:22 01/04/17 19:31 01/04/17 23:20 Hemoglobin 8.3 #L 5.3 #*L 6.5 #*L Hematocrit 25.8 #L 15.8 #L 19.8 #L Prothrombin Time 18.3 #H Prothrombin Time Ratio 1.4 INR International Normalized Ratio 1.51 Activated Partial Thromboplast Time 28.1 Lactic Acid Level 13.2 *H 11.1 *H Sodium Level 133 L Potassium Level 5.3 H Chloride Level 97 Carbon Dioxide Level 17 L Anion Gap 24 H Blood Urea Nitrogen 23 H Creatinine 3.22 #H Glucose Level 100 # Calcium Level 7.9 L Blood Gas Specimen Source Blood arterial Arterial Blood Date Drawn 01/04/2017 7:09:00 PM Arterial Blood pH (Temp corrected) 7.379 Arterial Blood pCO2 (Temp correct) 29.0 L Arterial Blood pO2 (Temp corrected) 163.9 H Arterial Blood HCO3 16.7 L Arterial Blood Base Excess -7.7 L Arterial Blood Oxygen Saturation 98.2 H [place] Test ACCEPTAB Arterial Blood Gas Puncture Site Right Radial Arterial Blood Carboxyhemoglobin 0.3 Arterial Blood Methemoglobin 0.4 Blood Gas A-a O2 Differential 520.1 H Oxyhemoglobin Percent 97.5 Total Hemoglobin 6.5 L Blood Gas Temperature 37.0 Blood Gas Modality NON-REBREATHING MASK FiO2 100.0 Blood Gas Critical Value Read Back Bree SYKES RN Blood Gas Notified Whom Blood Gas Notified Time 01/04/2017 7:21:00 PM White Blood Count 23.1 #H Red Blood Count 2.18 L Mean Corpuscular Volume 90.8 Mean Corpuscular Hemoglobin 29.8 Mean Corpuscular Hemoglobin Concent 32.8 Red Cell Distribution Width 17.4 H Platelet Count 286 # Mean Platelet Volume 11.4 H Neutrophils % 75.5 Lymphocytes % 13.3 L Monocytes % 7.4 Eosinophils % 0.0 Basophils % 0.2 Nucleated Red Blood Cells % 5.2 H Neutrophils # 17.5 H Lymphocytes # 3.1 H Monocytes # 1.7 H Eosinophils # 0.0 Basophils # 0.0 Nucleated Red Blood Cells # 1.2 H Test 01/05/17 00:05 01/05/17 01:55 01/05/17 02:15 01/05/17 05:19 Lactic Acid Level 8.2 *H Blood Gas Specimen Source Blood arterial Arterial Blood Date Drawn 01/05/2017 5:00:49 AM Arterial Blood pH (Temp corrected) 7.429 Arterial Blood pCO2 (Temp correct) 29.3 L Arterial Blood pO2 (Temp corrected) 98.5 Arterial Blood HCO3 19.0 L Arterial Blood Base Excess -4.7 L Arterial Blood Oxygen Saturation 96.8 [place] Test ACCEPTAB Arterial Blood Gas Puncture Site Left Radial Arterial Blood Carboxyhemoglobin 0.3 Arterial Blood Methemoglobin 0.3 Blood Gas A-a O2 Differential 297.1 H Oxyhemoglobin Percent 96.2 Total Hemoglobin 8.2 L Blood Gas Temperature 37.0 Blood Gas Actual Respiration Rate 22 Blood Gas Modality HFNC FiO2 60.0 Blood Gas Notified Whom UP Blood Gas Notified Time 01/05/2017 5:15:09 AM Urine Color SISSY Urine Clarity CLOUDY A Urine pH 5.0 Urine Specific [place] 1.021 Urine Ketones TRACE A Urine Nitrite NEGATIVE Urine Bilirubin NEGATIVE Urine Urobilinogen NEGATIVE Urine Leukocyte Esterase 1+ H Urine Microscopic RBC > 182 H Urine Microscopic WBC 19 H Urine Hemoglobin 3+ H Urine Random Creatinine 154.00 Urine Random Sodium 17 L Urine Glucose 1+ H Urine Total Protein 93.0 H Prothrombin Time Pending Prothrombin Time Ratio 2.2 INR International Normalized Ratio 2.61 Activated Partial Thromboplast Time 40.6 H Fibrinogen 261.0 Test 01/05/17 05:19 Lab Scanned Report BLOOD TRANSFUSION Medications Medications Current Medications Ondansetron HCl (Zofran Inj) 4 mg Q6H PRN IV NAUSEA AND/OR VOMITING Last administered on 01/05/17 02:20; Admin Dose 4 MG; Start 12/20/16 at 07:30 Acetaminophen (Tylenol Tab) 650 mg Q6H PRN PO PAIN LEVEL 1-3 OR FEVER Last administered on 12/30/16 12:40; Admin Dose 650 MG; Start 12/20/16 at 07:30 Morphine Sulfate (morphine) 4 mg Q4H PRN IV SEVERE PAIN LEVEL 7-10 Last administered on 01/04/17 06:27; Admin Dose 4 MG; Start 12/20/16 at 07:30 Amlodipine Besylate (Norvasc) 5 mg DAILY PO Last administered on 01/03/17 09: 01; Admin Dose 5 MG; Start 12/21/16 at 09:00 Acetaminophen/ Hydrocodone Bitart ([place] (5/325)) 1 tab Q6H PRN PO PAIN LEVEL 7 -10 Last administered on 01/03/17 21:54; Admin Dose 1 TAB; Start 12/30/16 at 18 :00 Pantoprazole (Protonix Tab) 40 mg BID@,18 PO Last administered on 01/04/17 06:26; Admin Dose 40 MG; Start 01/01/17 at 18:00 Hydromorphone HCl (Dilaudid) 1 mg Q4H PRN IV SEVERE PAIN LEVEL 7-10 Last administered on 01/05/17 02:21; Admin Dose 1 MG; Start 01/02/17 at 17:45 Docusate Sodium (Colace) 100 mg BID PO Last administered on 01/03/17 21:54; Admin Dose 100 MG; Start 01/03/17 at 21:00 Senna (Senokot) 1 tab BID PO Last administered on 01/03/17 21:54; Admin Dose 1 TAB; Start 01/03/17 at 21:00 Polyethylene Glycol 8.5 gm 8.5 gm DAILY PO Last administered on 01/03/17 17:36 ; Admin Dose 8.5 GM; Start 01/03/17 at 15:30 Cefepime HCl 50 ml @ 100 mls/hr DAILY IVPB Last administered on 01/04/17 16: 00; Admin Dose 100 MLS/HR; Start 01/04/17 at 10:00 Vancomycin HCl 1.25 gm/Sodium Chloride 250 ml @ 83.333 mls/ hr Q36H IVPB ; Start 01/05/17 at 22:00 Levetiracetam 100 ml @ 400 mls/hr Q12 IVPB Last administered on 01/04/17 23: 03; Admin Dose 400 MLS/HR; Start 01/04/17 at 11:00 Norepinephrine 16 mg/Dextrose 500 ml @ 1.87 mls/hr TITRATE IV Last administered on 01/04/17 10:45; Admin Dose 7.5 MLS/HR; Start 01/04/17 at 11:00 Sodium Bicarbonate/ Sodium Chloride (Na Bicarb/NS) 1,000 ml @ 200 mls/hr Q5H IV Last administered on 01/05/17 01:09; Admin Dose 200 MLS/HR; Start 01/04/17 at 16:00 Lorazepam (Ativan) 1 mg Q1H PRN IV Seizures; Start 01/04/17 at 19:30 IV Flush (NS 10 ml) 10 ml PRN PRN IV FLUSH LINE; Start 01/04/17 at 20:00 Morphine Sulfate (morphine) 2 mg Q4H PRN IV pain Last administered on 01:13; Admin Dose 2 MG; Start 01/05/17 at 01:30 RONNY VELÁZQUEZ Jan 05, 2017 06:18
[2017-01-05] MEDS: PANTOPRAZOLE 40 MG INJ IV SCH (06:37)
[2017-01-05] MEDS: LORAZEPAM 2 MG INJ IV PRN ×2 (06:55→12:10)
[2017-01-05 07:05] LABS: CREATININE 2.27 mg/dl (0.44-1.00); MAGNESIUM 1.4 mg/dl (1.7-2.5); PHOSPHORUS 6.2 mg/dl (2.5-4.9); POTASSIUM 3.9 mmol/L (3.5-5.1)
[2017-01-05 07:18] LABS: CALCIUM 5.1 mg/dl (8.4-10.2)
[2017-01-05] MEDS ORDERED: MAGNESIUM SULFATE 1 GM/D5W 100 ML IVPB ONE (07:30)
[2017-01-05] MEDS ORDERED: CALCIUM GLUCONATE 10% 1 GM in SOD CHLORIDE 0.9% 100 ML IVPB ONE (08:00)
[2017-01-05] MEDS: DOCUSATE SODIUM 100 MG CAP PO SCH ×2 (08:25→20:59)
[2017-01-05] MEDS: POLYETHYLENE GLYCOL 17 GM PACKET PO SCH (08:25)
[2017-01-05] MEDS: AMLODIPINE 5 MG TAB PO SCH (08:26)
[2017-01-05] MEDS: SENNA TAB PO SCH ×2 (08:26→21:00)
[2017-01-05] MEDS: LEVETIRACETAM 1000 MG (PMX) 100 ML IVPB SCH ×2 (08:30→21:31)
--- NOTE | 2017-01-05 08:48 | PN ---
DATE: 01/05/2017 SUBJECTIVE: The patient yesterday was transferred from telemetry to the intensive care unit after s uffering a code arrest. The patient was noted to be markedly anemic due to intra-abdominal hemorrha ge. The patient underwent multiple blood transfusions. The patient was also noted to be in shock a nd was placed on pressor support. Overnight, the patient had minimal urinary output of only 10 to 2 0 mL. No other acute events noted. There was no gross evidence of hemoptysis, hematemesis, or juan m tochezia. OBJECTIVE: GENERAL: The patient looks and appears ill in acute distress. VITAL SIGNS: Blood pressure is 93/75, respirations 43, pulse 130, temperature 98.6. I's and O's: The patient had 4 liters in and 40 mL out. HEENT: Head is normocephalic. Pupils are reactive to light. NECK: Supple. HEART: Regular rate. LUNGS: Show diminished breath sounds at the base. ABDOMEN: Soft, positive tenderness to palpation. EXTREMITIES: Negative for clubbing, cyanosis. Positive edema. DERMATOLOGIC: No rashes. MUSCULOSKELETAL: No joint effusions. NEUROLOGIC: Limited exam. LABORATORY: Shows sodium 151, potassium 3.9, chloride 106, bicarbonate 32, BUN 27, creatinine 2.27, calcium 5.2, phosphorus 6.2, magnesium 1.4. White count 18.6, hemoglobin 5.9, hematocrit 17.6, and platelet count is 193. IMAGING STUDIES: The patient's CT scan of the abdomen and pelvis shows findings of subscapular juan m tomeka of the liver with moderate blood seen throughout the abdomen and pelvis, right lower lobe atele ctasis or infiltrate, small bilateral effusion, and horseshoe kidneys. ASSESSMENT AND PLAN: 1. Anuric acute kidney injury with previously normal baseline creatinine. Etiology of initial acut e kidney injury was secondary to contrast nephropathy. However, the patient now is in acute tubular necrosis due to septic acute kidney injury, ischemic hypoperfusion, and shock. The patient remains in injury phase of acute tubular necrosis as the patient is anuric. The plan at this point is to c heck a UA with microanalysis. We will check urine electrolytes. We will continue current treatment plan. Continue IV fluids, continue pressor support to maintain MAP above 65. Continue blood trans fusions. There is no immediate need for renal replacement therapy at this time; however, if the pat ient's chest x-ray should come back showing extensive pulmonary edema and the patient does not show any signs of renal recovery, we will initiate hemodialysis. 2. Hyponatremia. The patient has a free water deficit of approximately 2.5 liters. We will contin ue hypertonic fluids, half NS at 100 mL an hour. 3. Mineral bone disorder. The patient is hyperphosphatemic, hypocalcemic, etiology secondary to ac tg kidney injury and recent bicarbonate drip. Plan is to give calcium gluconate 1 Gram. We will c ontinue to monitor. Defer any phosphate binders. 4. Hypomagnesemia. We will replete with magnesium sulfate 1 gram IV x1. 5. Mixed acid base disorder. The patient has a metabolic anion gap acidosis and metabolic alkalosi s. The patient's ABG showed a pH of 7.42, pCO2 of 29. Etiology secondary to acute kidney injury, l actic acidosis, and recent bicarbonate drip. We will continue to monitor at this time. 6. Septic shock. The patient is currently on pressor support. Underlying source is unclear. Cont inue current treatment plan. Continue IV fluids, pressor support. Continue antibiotic therapy. 7. Acute hypoxemic respiratory failure secondary to sepsis, shock, severe anemia. The patient is c urrently on oxygen. We will continue, follow up with pulmonary for recommendations. 8. Severe anemia due to intracapsular hemorrhage. The patient is status post multiple blood transf usions. Continue to monitor hemoglobin and hematocrit levels. Continue to transfuse. [facility] for recommendations. 9. Portal vein thrombosis. 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 The patient is being followed by gynecology. 11. Acute encephalopathy. Etiology is toxic metabolic. Continue to monitor. 12. Multiple liver lesions, status post biopsy. Findings consistent with hepatic abscess. Continu e to monitor. Continue current antibiotic regimen. 13. Status post code arrest. Please note, I spent over 35 minutes of critical care time with this patient. Dictated By: MILLY GUTHRIE/DAR Conf#: [id number] DID#: [id number]
--- NOTE | 2017-01-05 09:01 | RADRPT ---
PROCEDURE: Chest 1 views. CLINICAL INDICATION: Shortness of breath TECHNIQUE: AP views of the chest was obtained. COMPARISON: Yesterday FINDINGS: The heart is large. The lungs are hypoinflated. Elevation of the right hemidiaphragm is unchanged. Diffuse interstitial prominence in both lungs appears stable. Atelectasis versus mild infiltrates at the lung bases are unchanged. Left-sided PICC line is stable. Osseous structures are unchanged. IMPRESSION: Cardiomegaly . Hypoinflated lungs with stable elevation of the right hemidiaphragm. Stable diffuse mild interstitial prominence in both lungs. Stable atelectasis versus mild infiltrates at the lung bases. RPTAT: AA .Willi Johns MD, Date Time Electronically viewed and signed by .Willi Johns MD, on 01/05/2017 09:01 .P/
[2017-01-05 09:14] LABS: LYMPHOCYTES # 3.5 10^3/ul (0.8-2.9); NEUTROPHIL # 13.8 10^3/ul (1.6-7.5)
[2017-01-05] MEDS: SOD CHLORIDE 0.45% 1,000 ML IV SCH ×2 (10:00→21:30)
--- NOTE | 2017-01-05 10:30 | PN ---
Date/Time of Note Date/Time of Note DATE: 01/05/17 TIME: 10:26 Assessment/Plan VTE Prophylaxis VTE Prophylaxis Intervention: contraindicated VTE Contraindication Reason: bleeding Lines/Catheters IV Catheter Type (from Nrs): PICC Line Central line still needed: Yes Urinary Cath still in place: Yes Reason Cath still needed: urinary retention Assessment/Plan Assessment/Plan Assessment * Anemia acute CT scan Intraabdominal hemorrhage Very large mixed density acute subcapsular hematoma of the liver with moderate blood seen throughout the abdomen and pelvis. Right lower lobe atelectasis or infiltrate and small bilateral effusions. Horseshoe kidneys * Multiple lesions in the liver rule out metastatic versus abscess MRI . Extensive intra and extrahepatic portal vein thrombosis. . Multiple ill-defined focal liver lesions in the right hepatic lobe. R/O infectious vs malignancy Post liver biopsy/pathology pending * Portal vein thrombosis * . Plan * monitor hemoglobin and hematocrit and transfuse 1 unit PRBC if HGB <7.5 ,2 units PRBC hemoglobin less than 7 * Continue present management * surgery consult * case discussed with Dr Raphael * Further orders will depend on clinical course Subjective 24 Hr Interval Summary Free Text/Dictation * Course reviewed with RN * Patient seen and examined * Hemoglobin dropped to 5.4 undergoing blood transfusion * Patient is tachycardic ,on pressor support Exam/Review of Systems Vital Signs Vitals Vital Signs Date Time Temp Pulse Resp B/P Pulse Ox O2 Delivery O2 Flow Rate FiO2 01/05/17 08:00 133 01/05/17 06:45 43 93/75 100 01/05/17 06:00 High Flow 01/05/17 05:06 60 01/05/17 03:00 98.1 01/04/17 20:06 6.0 Intake and Output 01/04/17 01/04/17 01/05/17 15:00 23:00 07:00 Intake Total 991.25 ml 1443.75 ml 1700.500 ml Output Total 20 ml 20 ml Balance 991.25 ml 1423.75 ml 1680.500 ml Exam Constitutional: frail Neck: non-tender, supple Respiratory: diminished breath sounds Cardiovascular: nl pulses, regular rate and rhythm Gastrointestinal: bowel sounds, distended, non-tender, soft, No rebound or guarding Musculoskeletal: muscle weakness Extremities: normal pulses Neurological: lethargic Skin: nl turgor, No rash or lesions Lymph: nl lymph nodes Results Result Diagram: 01/05/17 0519 01/05/17 0519 Results 24 hrs Laboratory Tests Test 01/04/17 10:38 01/04/17 14:00 01/04/17 14:16 01/04/17 18:22 Blood Gas Specimen Source Blood arterial Blood arterial Arterial Blood Date Drawn 01/04/2017 10:20:27 AM 01/04/2017 2:15:57 PM Arterial Blood pH (Temp corrected) 7.338 L 7.341 L Arterial Blood pCO2 (Temp correct) 26.6 L 24.2 L Arterial Blood pO2 (Temp corrected) 194.1 H 198.7 H Arterial Blood HCO3 14.0 L 12.8 L Arterial Blood Base Excess -10.9 L -11.5 L Arterial Blood Oxygen Saturation 98.7 H 98.9 H Westley Test ACCEPTAB N/A Arterial Blood Gas Puncture Site Right Radial Right Brachial Arterial Blood Carboxyhemoglobin 0.3 0.3 Arterial Blood Methemoglobin 0.9 0.3 Blood Gas A-a O2 Differential 492.3 H 490.1 H Oxyhemoglobin Percent 97.5 98.3 Total Hemoglobin 5.0 L 9.1 L Blood Gas Temperature 37.0 37.0 Blood Gas Modality MASK - NRB MASK - NRB FiO2 100.0 100.0 Blood Gas Notified Whom JOSE FALCON Blood Gas Notified Time 01/04/2017 10:43:59 AM 01/04/2017 2:39:59 PM Hemoglobin 8.3 #L 5.3 #*L Hematocrit 25.8 #L 15.8 #L Prothrombin Time 18.3 #H Prothrombin Time Ratio 1.4 INR International Normalized Ratio 1.51 Activated Partial Thromboplast Time 28.1 Lactic Acid Level 13.2 *H 11.1 *H Sodium Level 133 L Potassium Level 5.3 H Chloride Level 97 Carbon Dioxide Level 17 L Anion Gap 24 H Blood Urea Nitrogen 23 H Creatinine 3.22 #H Glucose Level 100 # Calcium Level 7.9 L Test 01/04/17 19:31 01/04/17 23:20 01/05/17 00:05 01/05/17 01:55 Blood Gas Specimen Source Blood arterial Blood arterial Arterial Blood Date Drawn 01/04/2017 7:09:00 PM 01/05/2017 5:00:49 AM Arterial Blood pH (Temp corrected) 7.379 7.429 Arterial Blood pCO2 (Temp correct) 29.0 L 29.3 L Arterial Blood pO2 (Temp corrected) 163.9 H 98.5 Arterial Blood HCO3 16.7 L 19.0 L Arterial Blood Base Excess -7.7 L -4.7 L Arterial Blood Oxygen Saturation 98.2 H 96.8 [place] Test ACCEPTAB ACCEPTAB Arterial Blood Gas Puncture Site Right Radial Left Radial Arterial Blood Carboxyhemoglobin 0.3 0.3 Arterial Blood Methemoglobin 0.4 0.3 Blood Gas A-a O2 Differential 520.1 H 297.1 H Oxyhemoglobin Percent 97.5 96.2 Total Hemoglobin 6.5 L 8.2 L Blood Gas Temperature 37.0 37.0 Blood Gas Modality NON-REBREATHING MASK HFNC FiO2 100.0 60.0 Blood Gas Critical Value Read Back Bree SYKES RN Blood Gas Notified Whom WF UP Blood Gas Notified Time 01/04/2017 7:21:00 PM 01/05/2017 5:15:09 AM White Blood Count 23.1 #H Red Blood Count 2.18 L Hemoglobin 6.5 #*L Hematocrit 19.8 #L Mean Corpuscular Volume 90.8 Mean Corpuscular Hemoglobin 29.8 Mean Corpuscular Hemoglobin Concent 32.8 Red Cell Distribution Width 17.4 H Platelet Count 286 # Mean Platelet Volume 11.4 H Neutrophils % 75.5 Lymphocytes % 13.3 L Monocytes % 7.4 Eosinophils % 0.0 Basophils % 0.2 Nucleated Red Blood Cells % 5.2 H Neutrophils # 17.5 H Lymphocytes # 3.1 H Monocytes # 1.7 H Eosinophils # 0.0 Basophils # 0.0 Nucleated Red Blood Cells # 1.2 H Lactic Acid Level 8.2 *H Blood Gas Actual Respiration Rate 22 Test 01/05/17 02:15 01/05/17 05:19 01/05/17 05:19 Urine Color SISSY Urine Clarity CLOUDY A Urine pH 5.0 Urine Specific [place] 1.021 Urine Ketones TRACE A Urine Nitrite NEGATIVE Urine Bilirubin NEGATIVE Urine Urobilinogen NEGATIVE Urine Leukocyte Esterase 1+ H Urine Microscopic RBC > 182 H Urine Microscopic WBC 19 H Urine Hemoglobin 3+ H Urine Random Creatinine 154.00 Urine Random Sodium 17 L Urine Glucose 1+ H Urine Total Protein 93.0 H White Blood Count 18.6 H Red Blood Count 1.98 L Hemoglobin 5.9 *L Hematocrit 17.6 L Mean Corpuscular Volume 88.9 Mean Corpuscular Hemoglobin 29.8 Mean Corpuscular Hemoglobin Concent 33.5 Red Cell Distribution Width 15.6 H Platelet Count 193 # Mean Platelet Volume 11.7 H Neutrophils % 74.0 Band Neutrophils % 7.0 H Lymphocytes % 19.0 Eosinophils % Neutrophils # 13.8 H Lymphocytes # 3.5 H Eosinophils # Prothrombin Time 28.3 #H Prothrombin Time Ratio 2.2 INR International Normalized Ratio 2.61 Activated Partial Thromboplast Time 40.6 H Fibrinogen 261.0 Sodium Level 151 #H Potassium Level 3.9 Chloride Level 106 Carbon Dioxide Level 32 #H Anion Gap 17 #H Blood Urea Nitrogen 27 H Creatinine 2.27 H Glucose Level 213 # Lactic Acid Level 5.2 *H Calcium Level 5.1 *L Phosphorus Level 6.2 H Magnesium Level 1.4 L Lab Scanned Report BLOOD TRANSFUSION Medications Medications Current Medications Ondansetron HCl (Zofran Inj) 4 mg Q6H PRN IV NAUSEA AND/OR VOMITING Last administered on 01/05/17 02:20; Admin Dose 4 MG; Start 12/20/16 at 07:30 Acetaminophen (Tylenol Tab) 650 mg Q6H PRN PO PAIN LEVEL 1-3 OR FEVER Last administered on 12/30/16 12:40; Admin Dose 650 MG; Start 12/20/16 at 07:30 Morphine Sulfate (morphine) 4 mg Q4H PRN IV SEVERE PAIN LEVEL 7-10 Last administered on 01/04/17 06:27; Admin Dose 4 MG; Start 12/20/16 at 07:30 Amlodipine Besylate (Norvasc) 5 mg DAILY PO Last administered on 01/03/17 09: 01; Admin Dose 5 MG; Start 12/21/16 at 09:00 Acetaminophen/ Hydrocodone Bitart ([place] (5/325)) 1 tab Q6H PRN PO PAIN LEVEL 7 -10 Last administered on 01/03/17 21:54; Admin Dose 1 TAB; Start 12/30/16 at 18 :00 Hydromorphone HCl (Dilaudid) 1 mg Q4H PRN IV SEVERE PAIN LEVEL 7-10 Last administered on 01/05/17 02:21; Admin Dose 1 MG; Start 01/02/17 at 17:45 Docusate Sodium (Colace) 100 mg BID PO Last administered on 01/03/17 21:54; Admin Dose 100 MG; Start 01/03/17 at 21:00 Senna (Senokot) 1 tab BID PO Last administered on 01/03/17 21:54; Admin Dose 1 TAB; Start 01/03/17 at 21:00 Polyethylene Glycol 8.5 gm 8.5 gm DAILY PO Last administered on 01/03/17 17:36 ; Admin Dose 8.5 GM; Start 01/03/17 at 15:30 Cefepime HCl 50 ml @ 100 mls/hr DAILY IVPB Last administered on 01/04/17 16: 00; Admin Dose 100 MLS/HR; Start 01/04/17 at 10:00 Vancomycin HCl 1.25 gm/Sodium Chloride 250 ml @ 83.333 mls/ hr Q36H IVPB ; Start 01/05/17 at 22:00 Levetiracetam 100 ml @ 400 mls/hr Q12 IVPB Last administered on 01/05/17 08: 30; Admin Dose 400 MLS/HR; Start 01/04/17 at 11:00 Norepinephrine/ Dextrose (Levophed/D5W) 500 ml @ 1.87 mls/hr TITRATE IV Last administered on 01/05/17 09:13; Admin Dose 28.12 MLS/HR; Start 01/04/17 at 11: 00 Lorazepam (Ativan) 1 mg Q1H PRN IV Seizures; Start 01/04/17 at 19:30 IV Flush (NS 10 ml) 10 ml PRN PRN IV FLUSH LINE; Start 01/04/17 at 20:00 Morphine Sulfate (morphine) 2 mg Q4H PRN IV pain Last administered on 01:13; Admin Dose 2 MG; Start 01/05/17 at 01:30 Pantoprazole (Protonix Iv) 40 mg DAILY@06 IV Last administered on 01/05/17 06: 37; Admin Dose 40 MG; Start 01/05/17 at 06:30 Lorazepam 1 mg 1 mg Q4H PRN IV agitation Last administered on 01/05/17 06:55; Admin Dose 1 MG; Start 01/05/17 at 07:00 Sodium Chloride (1/2 NS) 1,000 ml @ 100 mls/hr Q10H IV ; Start 01/05/17 at 10: 00 NARENDRA FINLEY NP Jan 05, 2017 10:30
[2017-01-05 11:27] LABS: AADO2 Arterial 591.3 mmHg (7.0-24.0); Arterial Base Excess -3.9 mmol/L (-3.0-3); Arterial COHb 0.3 % (0.0-3.0); Arterial Fraction of Oxyhgb 93.5 % (93.0-99.0); Arterial HCO3 22.3 mmol/L (22.0-26.0); Arterial MetHb 0.2 % (0.0-1.5); MODE HFNC
--- NOTE | 2017-01-05 11:33 | PN ---
Date/Time of Note Date/Time of Note DATE: 01/05/17 TIME: 11:28 Assessment/Plan VTE Prophylaxis VTE Prophylaxis Intervention: contraindicated VTE Contraindication Reason: bleeding Lines/Catheters IV Catheter Type (from Nrsg): PICC Line Central line still needed: Yes Urinary Cath still in place: Yes Reason Cath still needed: urinary retention Assessment/Plan Chief Complaint/Hosp Course Assessment/Plan: 51 F with: 1. Abdominal pain: likely 2/2 liver lesions vs her esophageal ulcer: however + subcapsular hematoma, anemic, slightly improved met acidosis now, lactic acidosis, severe anemia - still present despite blood products given (pRBC, FFP ) - suspect still active liver bleed occurring. -1/2 NS IVF's, pRBC's transfusions x 6 already given, continue serial H/H' s Q6 hrs, FFP x 4 again today (received 2 yesterday), possibly get CT 3 phase liver scan to further evaluate the liver hematoma (but has ARF). Per discussion with IR and hepatobilary team today - will decide whether to embolize liver bleeding area (posterior lobe). High risk if this done for liver failure, per IR (as pt has no adequate hepatic vein supply, and only supplied by hepatic artery now). - keppra for sz's - 4 more units FFP, ddAVP, consider plt transfusion 2. 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 3. Multiple liver lesions : differentials are infection (abscesses vs metastatic) - s/p biopsy. per heme/Onc - does not show metastatic carcinoma or primary primary hepatocellular carcinoma. 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 Also on abx for possible infx source. - f/u final biopsy results. 4. 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 Uterine mass: likely incidental, although cannot r/o sarcoma, per Heme/ onc. - appreciate [employer] Onc consult - may need biopsy of uterine mass - r/o leiomyosarcoma vs other - f/u their rec's 6. HTN: controlled 7. Iron deficiency anemia s/p PRBC and Iron transfusion - H/H stable - monitor CBC daily 8. S/p Alpha hemolytic strep bacteremia rule out contaminant - f/u ID rec's, on abx 9. Elevated CA 125 - f/u biopsy and heme/onc rec;s - consider checking Ca19-9 10. RUE DVT - holding LMWH 11. GRICELDA 2/2 ATN from contrast versus Vanco: more present today - IVF's, monitor , consider renal consult Critical care time spent today = 50 min. Problems: Subjective 24 Hr Interval Summary Free Text/Dictation Pt has had total 6 units pRBC since yesterday, still on pressors, not intubated. Still low Hgb today (5.9). IR team updated as well. Exam/Review of Systems Vital Signs Vitals Vital Signs Date Time Temp Pulse Resp B/P Pulse Ox O2 Delivery O2 Flow Rate FiO2 01/05/17 08:00 133 01/05/17 06:45 43 93/75 100 01/05/17 06:00 High Flow 01/05/17 05:06 60 01/05/17 03:00 98.1 01/04/17 20:06 6.0 Intake and Output 01/04/17 01/04/17 01/05/17 15:00 23:00 07:00 Intake Total 991.25 ml 1443.75 ml 1700.500 ml Output Total 20 ml 20 ml Balance 991.25 ml 1423.75 ml 1680.500 ml Exam Constitutional: lethargic, restraints, high flow O2 Head: atraumatic, normocephalic Neck: non-tender, supple Respiratory: clear to auscultation Cardiovascular: regular rate and rhythm Gastrointestinal: + tender, slightly firm, Extremities: cool skin, weak pulses B/L LE Results Result Diagram: 01/05/17 0519 01/05/17 0519 Results 24 hrs Laboratory Tests Test 01/04/17 14:00 01/04/17 14:16 01/04/17 18:22 01/04/17 19:31 Blood Gas Specimen Source Blood arterial Blood arterial Arterial Blood Date Drawn 01/04/2017 2:15:57 PM 01/04/2017 7:09:00 PM Arterial Blood pH (Temp corrected) 7.341 L 7.379 Arterial Blood pCO2 (Temp correct) 24.2 L 29.0 L Arterial Blood pO2 (Temp corrected) 198.7 H 163.9 H Arterial Blood HCO3 12.8 L 16.7 L Arterial Blood Base Excess -11.5 L -7.7 L Arterial Blood Oxygen Saturation 98.9 H 98.2 H Westley Test N/A ACCEPTAB Arterial Blood Gas Puncture Site Right Brachial Right Radial Arterial Blood Carboxyhemoglobin 0.3 0.3 Arterial Blood Methemoglobin 0.3 0.4 Blood Gas A-a O2 Differential 490.1 H 520.1 H Oxyhemoglobin Percent 98.3 97.5 Total Hemoglobin 9.1 L 6.5 L Blood Gas Temperature 37.0 37.0 Blood Gas Modality MASK - NRB NON-REBREATHING MASK FiO2 100.0 100.0 Blood Gas Notified Whom Prabhakar MELISSA Blood Gas Notified Time 01/04/2017 2:39:59 PM 01/04/2017 7:21:00 PM Hemoglobin 8.3 #L 5.3 #*L Hematocrit 25.8 #L 15.8 #L Prothrombin Time 18.3 #H Prothrombin Time Ratio 1.4 INR International Normalized Ratio 1.51 Activated Partial Thromboplast Time 28.1 Lactic Acid Level 13.2 *H 11.1 *H Sodium Level 133 L Potassium Level 5.3 H Chloride Level 97 Carbon Dioxide Level 17 L Anion Gap 24 H Blood Urea Nitrogen 23 H Creatinine 3.22 #H Glucose Level 100 # Calcium Level 7.9 L Blood Gas Critical Value Read Back Bree SYKES RN Test 01/04/17 23:20 01/05/17 00:05 01/05/17 01:55 01/05/17 02:15 White Blood Count 23.1 #H Red Blood Count 2.18 L Hemoglobin 6.5 #*L Hematocrit 19.8 #L Mean Corpuscular Volume 90.8 Mean Corpuscular Hemoglobin 29.8 Mean Corpuscular Hemoglobin Concent 32.8 Red Cell Distribution Width 17.4 H Platelet Count 286 # Mean Platelet Volume 11.4 H Neutrophils % 75.5 Lymphocytes % 13.3 L Monocytes % 7.4 Eosinophils % 0.0 Basophils % 0.2 Nucleated Red Blood Cells % 5.2 H Neutrophils # 17.5 H Lymphocytes # 3.1 H Monocytes # 1.7 H Eosinophils # 0.0 Basophils # 0.0 Nucleated Red Blood Cells # 1.2 H Lactic Acid Level 8.2 *H Blood Gas Specimen Source Blood arterial Arterial Blood Date Drawn 01/05/2017 5:00:49 AM Arterial Blood pH (Temp corrected) 7.429 Arterial Blood pCO2 (Temp correct) 29.3 L Arterial Blood pO2 (Temp corrected) 98.5 Arterial Blood HCO3 19.0 L Arterial Blood Base Excess -4.7 L Arterial Blood Oxygen Saturation 96.8 Westley Test ACCEPTAB Arterial Blood Gas Puncture Site Left Radial Arterial Blood Carboxyhemoglobin 0.3 Arterial Blood Methemoglobin 0.3 Blood Gas A-a O2 Differential 297.1 H Oxyhemoglobin Percent 96.2 Total Hemoglobin 8.2 L Blood Gas Temperature 37.0 Blood Gas Actual Respiration Rate 22 Blood Gas Modality HFNC FiO2 60.0 Blood Gas Notified Whom UP Blood Gas Notified Time 01/05/2017 5:15:09 AM Urine Color SISSY Urine Clarity CLOUDY A Urine pH 5.0 Urine Specific Kelliher 1.021 Urine Ketones TRACE A Urine Nitrite NEGATIVE Urine Bilirubin NEGATIVE Urine Urobilinogen NEGATIVE Urine Leukocyte Esterase 1+ H Urine Microscopic RBC > 182 H Urine Microscopic WBC 19 H Urine Hemoglobin 3+ H Urine Random Creatinine 154.00 Urine Random Sodium 17 L Urine Glucose 1+ H Urine Total Protein 93.0 H Test 01/05/17 05:19 01/05/17 05:19 01/05/17 11:06 White Blood Count 18.6 H Red Blood Count 1.98 L Hemoglobin 5.9 *L Hematocrit 17.6 L Mean Corpuscular Volume 88.9 Mean Corpuscular Hemoglobin 29.8 Mean Corpuscular Hemoglobin Concent 33.5 Red Cell Distribution Width 15.6 H Platelet Count 193 # Mean Platelet Volume 11.7 H Neutrophils % 74.0 Band Neutrophils % 7.0 H Lymphocytes % 19.0 Eosinophils % Neutrophils # 13.8 H Lymphocytes # 3.5 H Eosinophils # Prothrombin Time 28.3 #H Prothrombin Time Ratio 2.2 INR International Normalized Ratio 2.61 Activated Partial Thromboplast Time 40.6 H Fibrinogen 261.0 Sodium Level 151 #H Potassium Level 3.9 Chloride Level 106 Carbon Dioxide Level 32 #H Anion Gap 17 #H Blood Urea Nitrogen 27 H Creatinine 2.27 H Glucose Level 213 # Lactic Acid Level 5.2 *H Calcium Level 5.1 *L Phosphorus Level 6.2 H Magnesium Level 1.4 L Lab Scanned Report BLOOD TRANSFUSION Blood Gas Specimen Source Blood arterial Arterial Blood Date Drawn 01/05/2017 11:20:08 AM Arterial Blood pH (Temp corrected) 7.308 L Arterial Blood pCO2 (Temp correct) 45.5 H Arterial Blood pO2 (Temp corrected) 76.2 L Arterial Blood HCO3 22.3 Arterial Blood Base Excess -3.9 L Arterial Blood Oxygen Saturation 94.0 L Westley Test N/A Arterial Blood Gas Puncture Site LB Arterial Blood Carboxyhemoglobin 0.3 Arterial Blood Methemoglobin 0.2 Blood Gas A-a O2 Differential 591.3 H Oxyhemoglobin Percent 93.5 Total Hemoglobin 11.0 L Blood Gas Temperature 37.0 Blood Gas Modality HFNC FiO2 100.0 Blood Gas Notified Whom TM Blood Gas Notified Time 01/05/2017 11:26:59 AM Medications Medications Current Medications Ondansetron HCl (Zofran Inj) 4 mg Q6H PRN IV NAUSEA AND/OR VOMITING Last administered on 01/05/17 02:20; Admin Dose 4 MG; Start 12/20/16 at 07:30 Acetaminophen (Tylenol Tab) 650 mg Q6H PRN PO PAIN LEVEL 1-3 OR FEVER Last administered on 12/30/16 12:40; Admin Dose 650 MG; Start 12/20/16 at 07:30 Morphine Sulfate (morphine) 4 mg Q4H PRN IV SEVERE PAIN LEVEL 7-10 Last administered on 01/04/17 06:27; Admin Dose 4 MG; Start 12/20/16 at 07:30 Amlodipine Besylate (Norvasc) 5 mg DAILY PO Last administered on 01/03/17 09: 01; Admin Dose 5 MG; Start 12/21/16 at 09:00 Acetaminophen/ Hydrocodone Bitart ([place] (5/325)) 1 tab Q6H PRN PO PAIN LEVEL 7 -10 Last administered on 01/03/17 21:54; Admin Dose 1 TAB; Start 12/30/16 at 18 :00 Hydromorphone HCl (Dilaudid) 1 mg Q4H PRN IV SEVERE PAIN LEVEL 7-10 Last administered on 01/05/17 02:21; Admin Dose 1 MG; Start 01/02/17 at 17:45 Docusate Sodium (Colace) 100 mg BID PO Last administered on 01/03/17 21:54; Admin Dose 100 MG; Start 01/03/17 at 21:00 Senna (Senokot) 1 tab BID PO Last administered on 01/03/17 21:54; Admin Dose 1 TAB; Start 01/03/17 at 21:00 Polyethylene Glycol 8.5 gm 8.5 gm DAILY PO Last administered on 01/03/17 17:36 ; Admin Dose 8.5 GM; Start 01/03/17 at 15:30 Cefepime HCl 50 ml @ 100 mls/hr DAILY IVPB Last administered on 01/04/17 16: 00; Admin Dose 100 MLS/HR; Start 01/04/17 at 10:00 Vancomycin HCl 1.25 gm/Sodium Chloride 250 ml @ 83.333 mls/ hr Q36H IVPB ; Start 01/05/17 at 22:00 Levetiracetam 100 ml @ 400 mls/hr Q12 IVPB Last administered on 01/05/17 08: 30; Admin Dose 400 MLS/HR; Start 01/04/17 at 11:00 Norepinephrine/ Dextrose (Levophed/D5W) 500 ml @ 1.87 mls/hr TITRATE IV Last administered on 01/05/17 09:13; Admin Dose 28.12 MLS/HR; Start 01/04/17 at 11: 00 Lorazepam (Ativan) 1 mg Q1H PRN IV Seizures; Start 01/04/17 at 19:30 IV Flush (NS 10 ml) 10 ml PRN PRN IV FLUSH LINE; Start 01/04/17 at 20:00 Morphine Sulfate (morphine) 2 mg Q4H PRN IV pain Last administered on 01:13; Admin Dose 2 MG; Start 01/05/17 at 01:30 Pantoprazole (Protonix Iv) 40 mg DAILY@06 IV Last administered on 01/05/17 06: 37; Admin Dose 40 MG; Start 01/05/17 at 06:30 Lorazepam 1 mg 1 mg Q4H PRN IV agitation Last administered on 01/05/17 06:55; Admin Dose 1 MG; Start 01/05/17 at 07:00 Sodium Chloride 1,000 ml @ 100 mls/hr Q10H IV ; Start 01/05/17 at 10:00 Desmopressin Acetate/Sodium Chloride (Ddavp/NS) 56.25 ml @ 112.5 mls/ hr ONCE ONCE IVPB ; Start 01/05/17 at 12:00; Stop 01/05/17 at 12:29 VERONICA FERGUSON Jan 05, 2017 11:33
[2017-01-05 11:38] LABS: ALBUMIN 2.3 g/dl (3.3-4.9); BILIRUBIN,INDIRECT 0.1 mg/dl (0-1.1); BILIRUBIN,TOTAL 0.1 mg/dl (0.2-1.3); TOTAL PROTEIN 4.2 g/dl (6.1-8.1)
[2017-01-05] MEDS ORDERED: SUCCINYLCHOLINE CHLORIDE 100 MG/5 ML SYG IV ONE (11:40)
[2017-01-05] MEDS ORDERED: ETOMIDATE 20 MG INJ ONE (11:40)
[2017-01-05] MEDS ORDERED: SOD CHLORIDE 0.9% 250 ML IV* ONE ×2 (11:45→19:31)
[2017-01-05] MEDS ORDERED: DESMOPRESSIN 25 MCG in SOD CHLORIDE 0.9% 50 ML IVPB ONE (12:00)
--- NOTE | 2017-01-05 12:19 | QN ---
Documentation Comment 01/05/2017 51-year-old female admitted for abdominal pain found to have portal and hepatic vein thromboses, pulmonary nodules, uterine mass and multiple liver lesions which was subsequently biopsied and developed bleeding with large subcapsular hepatic hematoma requiring multiple units of packed RBCs now with increasing shortness of breath and tachypnea. Arterial blood gas reveals worsening respiratory acidosis and hypoxia despite supplemental oxygen consistent with impending respiratory failure. Intubation requested by Dr. Pineda. Patient is unable to give any history due to clinical condition. On physical examination patient is in acute respiratory distress, tachypneic with a respiratory rate of 40 and shallow respirations. Blood pressure systolic is greater than 105 and director of cardiac cath lab reveals sinus tachycardia rate of 130 without ectopy. Patient is lethargic but arousable and follow commands. Pupils are equal react to light conjunctiva are pale. Pharynx is clear. Mallampati score 3. Neck is supple nontender. No JVD. Pulmonary exam reveals decreased breath sounds bilaterally with crackles at the bases. Cardiovascular, tachycardic, regular rhythm without murmurs. Abdomen: Obese, diffusely tender. Extremities no calf swelling or tenderness. Neurologic lethargic but arousable and follows commands. No focal deficit observed. ASA classification IV. Endotracheal Intubation by me: Pre assessment performed. See preceding note for details. Pre-oxygenation performed with 100% oxygen RSI: Performed w/o complication or hypoxic events. Etomidate 20 mg IV and succinylcholine 100 mg IV. Blade: Start scope #4 ET Tube: 7.5 cm Depth: 21 cm at the lip Intubation confirmed by colorimetric CO2, equal breath sounds, quiet over the stomach. Chest X-ray 1V Interpreted by me: Tip of the ET tube is 2 cm above the vijaya. Cardiomegaly. Atelectasis at the bases. Left PICC line in good position. Normal soft tissue, No pneumothorax. Patient with respiratory failure consented to intubation which was performed without difficulty as described above. Ventilator settings of AC 15, tidal volume 500, O2 100%. Dr. Pineda is at the bedside and assumed care of the patient. PANTERA BARNEY MD Jan 05, 2017 12:19
[2017-01-05] MEDS: FENTAnyl (DRIP) 1000 mcg/100mL 100 ML IV SCH ×2 (12:32→22:18)
--- NOTE | 2017-01-05 12:48 | CONS ---
Date/Time of Note Date/Time of Note DATE: 01/05/17 TIME: 12:47 Assessment/Plan Assessment/Plan Chief Complaint/Hosp Course Mrs. 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 Her portal vein thrombosis appears to be acute in nature as this was not present on the November abdominal CT scan. She also has incidental finding of a non-symptomatic left posterior Bochdalek hernia. Her Anorexia and abdominal pain is likely related to the portal vein thrombosis. 1. Given the fact that her current presentation of hepatic and portal vein thrombosis is acute in nature, associated with leukocytosis and fevers, abscess in the liver cannot be ruled out. I recommend a dedicated liver protocol MRI with Eovist to better evaluate the liver and the extent of underlying disease process. Her CT scans are not good enough to evaluate the liver as it stands. Her hypercoagulable state can be 2/2 an underlying neoplastic process as yet to be determined, however, an underlying inflammatory process can also lead to this. She has never had an upper or lower endoscopy and thus this needs to be addressed to evaluate for and rule out possible metastatic disease. My review of the CT Scans did not raise any concerns, however. I don't believe that there is a relation between the liver lesions and the left adnexal mass at this time without presence of extensive peritoneal disease. 2. I agree with tumor markers evaluation as per Oncology recommendation. 3. As pertaining to the lung lesions, biopsy is a good option. 4. Pt needs to have therapeutic dose anticoagulation for her thrombosis. 5. No surgical intervention is recommended for her incidental asymptomatic Bochdalek Hernia given her current presentation. will Follow Problems: Additional Assessment/Plan Mrs. Burks is currently in critical condition, intubated, with portal and hepatic vein thromboses, pulmonary nodules, uterine mass and multiple liver lesions which was subsequently biopsied and developed bleeding. Pt is currently on levo for cardiac support and has received multiple units of blood products to correct for underlying anemia, and coagulopathy. She is not a surgical candidate at this point and any surgical exploration is no bound to be prone to complications and morbid. We need to first evaluate for and control the actual cause of her blood loss, which is likely from subcapsular bleed post hepatic biopsy with her having been on anticoagulation. IR will evaluate this and treat this as appropriate. I will follow Consultation Date/Type/Reason Admit Date/Time Dec 19, 2016 at 21:34 Initial Consult Date 12/26/16 Type of Consultation: Pulmonary/critical care Reason for Consultation Possible bleeding from recent liver biopsy site Referring Provider: KAHLIL MARTEL 24 HR Interval Summary Free Text/Dictation Pt is well known to me from her recent admission with findings of portal and hepatic vein thromboses, pulmonary nodules, uterine mass and multiple liver lesions which was subsequently biopsied and developed bleeding. She is currently intubated and in the ICU, on one pressor. At bedside, the cuff pressures are not accurate, thus an Arterial line was placed and currently 115/77 with levo at 6 mcg. Her Hgb has dropped to 5-6, pt INR is 2.6, and thus far has received multiple units of blood and blood products to correct her underlying coagulopathy and Anemia. The concern is for possible bleeding at the liver biopsy site with a subcapsular bleed. Pt cannot get a contrast CT to evaluate further given her Underlying acute kidney injury. I have spoken with Dr. Fermin from IR, he will evaluate the segmental branches of the Hepatic artery to assess whether there is a blush and possibly blush. Pt's portal vein is out and thus not accessible. Exam/Review of Systems Vital Signs Vitals Vital Signs Date Time Temp Pulse Resp B/P Pulse Ox O2 Delivery O2 Flow Rate FiO2 01/05/17 08:00 133 01/05/17 06:45 43 93/75 100 01/05/17 06:00 High Flow 01/05/17 05:06 60 01/05/17 03:00 98.1 01/04/17 20:06 6.0 Intake and Output 01/04/17 01/04/17 01/05/17 15:00 23:00 07:00 Intake Total 991.25 ml 1443.75 ml 1700.500 ml Output Total 20 ml 20 ml Balance 991.25 ml 1423.75 ml 1680.500 ml Exam Constitutional: non-verbal Head: normocephalic Neck: supple Respiratory: clear to auscultation Cardiovascular: nl pulses, regular rate and rhythm (Tachy, regular) Gastrointestinal: soft Neurological: other (intubated, sedated. ) Results Result Diagram: 01/05/1751801/05/17518 Results 24 hrs Laboratory Tests Test 01/04/17 14:00 01/04/17 14:16 01/04/17 18:22 01/04/17 19:31 Blood Gas Specimen Source Blood arterial Blood arterial Arterial Blood Date Drawn 01/04/2017 2:15:57 PM 01/04/2017 7:09:00 PM Arterial Blood pH (Temp corrected) 7.341 L 7.379 Arterial Blood pCO2 (Temp correct) 24.2 L 29.0 L Arterial Blood pO2 (Temp corrected) 198.7 H 163.9 H Arterial Blood HCO3 12.8 L 16.7 L Arterial Blood Base Excess -11.5 L -7.7 L Arterial Blood Oxygen Saturation 98.9 H 98.2 H Westley Test N/A ACCEPTAB Arterial Blood Gas Puncture Site Right Brachial Right Radial Arterial Blood Carboxyhemoglobin 0.3 0.3 Arterial Blood Methemoglobin 0.3 0.4 Blood Gas A-a O2 Differential 490.1 H 520.1 H Oxyhemoglobin Percent 98.3 97.5 Total Hemoglobin 9.1 L 6.5 L Blood Gas Temperature 37.0 37.0 Blood Gas Modality MASK - NRB NON-REBREATHING MASK FiO2 100.0 100.0 Blood Gas Notified Whom Prabhakar MELISSA Blood Gas Notified Time 01/04/2017 2:39:59 PM 01/04/2017 7:21:00 PM Hemoglobin 8.3 #L 5.3 #*L Hematocrit 25.8 #L 15.8 #L Prothrombin Time 18.3 #H Prothrombin Time Ratio 1.4 INR International Normalized Ratio 1.51 Activated Partial Thromboplast Time 28.1 Lactic Acid Level 13.2 *H 11.1 *H Sodium Level 133 L Potassium Level 5.3 H Chloride Level 97 Carbon Dioxide Level 17 L Anion Gap 24 H Blood Urea Nitrogen 23 H Creatinine 3.22 #H Glucose Level 100 # Calcium Level 7.9 L Blood Gas Critical Value Read Back Bree SYKES RN Test 01/04/17 23:20 01/05/17 00:05 01/05/17 01:55 01/05/17 02:15 White Blood Count 23.1 #H Red Blood Count 2.18 L Hemoglobin 6.5 #*L Hematocrit 19.8 #L Mean Corpuscular Volume 90.8 Mean Corpuscular Hemoglobin 29.8 Mean Corpuscular Hemoglobin Concent 32.8 Red Cell Distribution Width 17.4 H Platelet Count 286 # Mean Platelet Volume 11.4 H Neutrophils % 75.5 Lymphocytes % 13.3 L Monocytes % 7.4 Eosinophils % 0.0 Basophils % 0.2 Nucleated Red Blood Cells % 5.2 H Neutrophils # 17.5 H Lymphocytes # 3.1 H Monocytes # 1.7 H Eosinophils # 0.0 Basophils # 0.0 Nucleated Red Blood Cells # 1.2 H Lactic Acid Level 8.2 *H Blood Gas Specimen Source Blood arterial Arterial Blood Date Drawn 01/05/2017 5:00:49 AM Arterial Blood pH (Temp corrected) 7.429 Arterial Blood pCO2 (Temp correct) 29.3 L Arterial Blood pO2 (Temp corrected) 98.5 Arterial Blood HCO3 19.0 L Arterial Blood Base Excess -4.7 L Arterial Blood Oxygen Saturation 96.8 Westley Test ACCEPTAB Arterial Blood Gas Puncture Site Left Radial Arterial Blood Carboxyhemoglobin 0.3 Arterial Blood Methemoglobin 0.3 Blood Gas A-a O2 Differential 297.1 H Oxyhemoglobin Percent 96.2 Total Hemoglobin 8.2 L Blood Gas Temperature 37.0 Blood Gas Actual Respiration Rate 22 Blood Gas Modality HFNC FiO2 60.0 Blood Gas Notified Whom UP Blood Gas Notified Time 01/05/2017 5:15:09 AM Urine Color SISSY Urine Clarity CLOUDY A Urine pH 5.0 Urine Specific [place] 1.021 Urine Ketones TRACE A Urine Nitrite NEGATIVE Urine Bilirubin NEGATIVE Urine Urobilinogen NEGATIVE Urine Leukocyte Esterase 1+ H Urine Microscopic RBC > 182 H Urine Microscopic WBC 19 H Urine Hemoglobin 3+ H Urine Random Creatinine 154.00 Urine Random Sodium 17 L Urine Glucose 1+ H Urine Total Protein 93.0 H Test 01/05/17 05:19 01/05/17 05:19 01/05/17 07:59 01/05/17 11:06 White Blood Count 18.6 H Red Blood Count 1.98 L Hemoglobin 5.9 *L Hematocrit 17.6 L Mean Corpuscular Volume 88.9 Mean Corpuscular Hemoglobin 29.8 Mean Corpuscular Hemoglobin Concent 33.5 Red Cell Distribution Width 15.6 H Platelet Count 193 # Mean Platelet Volume 11.7 H Neutrophils % 74.0 Band Neutrophils % 7.0 H Lymphocytes % 19.0 Eosinophils % Neutrophils # 13.8 H Lymphocytes # 3.5 H Eosinophils # Prothrombin Time 28.3 #H Prothrombin Time Ratio 2.2 INR International Normalized Ratio 2.61 Activated Partial Thromboplast Time 40.6 H Fibrinogen 261.0 Sodium Level 151 #H Potassium Level 3.9 Chloride Level 106 Carbon Dioxide Level 32 #H Anion Gap 17 #H Blood Urea Nitrogen 27 H Creatinine 2.27 H Glucose Level 213 # Lactic Acid Level 5.2 *H Calcium Level 5.1 *L Phosphorus Level 6.2 H Magnesium Level 1.4 L Lab Scanned Report BLOOD TRANSFUSION Ionized Calcium (Measured) 0.9 L Total Bilirubin 0.1 L Direct Bilirubin 0.00 Indirect Bilirubin 0.1 Aspartate Amino Transf (AST/SGOT) 732 H Alanine Aminotransferase (ALT/SGPT) 217 H Alkaline Phosphatase 71 Total Protein 4.2 L Albumin 2.3 L Blood Gas Specimen Source Blood arterial Arterial Blood Date Drawn 01/05/2017 11:20:08 AM Arterial Blood pH (Temp corrected) 7.308 L Arterial Blood pCO2 (Temp correct) 45.5 H Arterial Blood pO2 (Temp corrected) 76.2 L Arterial Blood HCO3 22.3 Arterial Blood Base Excess -3.9 L Arterial Blood Oxygen Saturation 94.0 L Westley Test N/A Arterial Blood Gas Puncture Site LB Arterial Blood Carboxyhemoglobin 0.3 Arterial Blood Methemoglobin 0.2 Blood Gas A-a O2 Differential 591.3 H Oxyhemoglobin Percent 93.5 Total Hemoglobin 11.0 L Blood Gas Temperature 37.0 Blood Gas Modality HFNC FiO2 100.0 Blood Gas Notified Whom TM Blood Gas Notified Time 01/05/2017 11:26:59 AM Medications Medications Current Medications Ondansetron HCl (Zofran Inj) 4 mg Q6H PRN IV NAUSEA AND/OR VOMITING Last administered on 01/05/17 02:20; Admin Dose 4 MG; Start 12/20/16 at 07:30 Acetaminophen (Tylenol Tab) 650 mg Q6H PRN PO PAIN LEVEL 1-3 OR FEVER Last administered on 12/30/16 12:40; Admin Dose 650 MG; Start 12/20/16 at 07:30 Morphine Sulfate (morphine) 4 mg Q4H PRN IV SEVERE PAIN LEVEL 7-10 Last administered on 01/04/17 06:27; Admin Dose 4 MG; Start 12/20/16 at 07:30 Amlodipine Besylate (Norvasc) 5 mg DAILY PO Last administered on 01/03/17 09: 01; Admin Dose 5 MG; Start 12/21/16 at 09:00 Acetaminophen/ Hydrocodone Bitart ([place] (5/325)) 1 tab Q6H PRN PO PAIN LEVEL 7 -10 Last administered on 01/03/17 21:54; Admin Dose 1 TAB; Start 12/30/16 at 18 :00 Hydromorphone HCl (Dilaudid) 1 mg Q4H PRN IV SEVERE PAIN LEVEL 7-10 Last administered on 01/05/17 02:21; Admin Dose 1 MG; Start 01/02/17 at 17:45 Docusate Sodium (Colace) 100 mg BID PO Last administered on 01/03/17 21:54; Admin Dose 100 MG; Start 01/03/17 at 21:00 Senna (Senokot) 1 tab BID PO Last administered on 01/03/17 21:54; Admin Dose 1 TAB; Start 01/03/17 at 21:00 Polyethylene Glycol 8.5 gm 8.5 gm DAILY PO Last administered on 01/03/17 17:36 ; Admin Dose 8.5 GM; Start 01/03/17 at 15:30 Cefepime HCl 50 ml @ 100 mls/hr DAILY IVPB Last administered on 01/04/17 16: 00; Admin Dose 100 MLS/HR; Start 01/04/17 at 10:00 Levetiracetam 100 ml @ 400 mls/hr Q12 IVPB Last administered on 01/05/17 08: 30; Admin Dose 400 MLS/HR; Start 01/04/17 at 11:00 Norepinephrine/ Dextrose (Levophed/D5W) 500 ml @ 1.87 mls/hr TITRATE IV Last administered on 01/05/17 09:13; Admin Dose 28.12 MLS/HR; Start 01/04/17 at 11: 00 Lorazepam (Ativan) 1 mg Q1H PRN IV Seizures; Start 01/04/17 at 19:30 IV Flush (NS 10 ml) 10 ml PRN PRN IV FLUSH LINE; Start 01/04/17 at 20:00 Morphine Sulfate (morphine) 2 mg Q4H PRN IV pain Last administered on 01:13; Admin Dose 2 MG; Start 01/05/17 at 01:30 Pantoprazole (Protonix Iv) 40 mg DAILY@06 IV Last administered on 01/05/17 06: 37; Admin Dose 40 MG; Start 01/05/17 at 06:30 Lorazepam 1 mg 1 mg Q4H PRN IV agitation Last administered on 01/05/17 12:10; Admin Dose 1 MG; Start 01/05/17 at 07:00 Sodium Chloride 1,000 ml @ 100 mls/hr Q10H IV ; Start 01/05/17 at 10:00 Vancomycin HCl 1.25 gm/Sodium Chloride 250 ml @ 83.333 mls/ hr Q48H IVPB ; Start 01/06/17 at 23:00 Fentanyl (Sublimaze) 100 ml @ 2.5 mls/hr TITRATE IV Last administered on 12:32; Admin Dose 2.5 MLS/HR; Start 01/05/17 at 12:25 Miscellaneous Information (*Rx Drug Level Order Reminder*) RANDOM VANCOMYCIN LEVEL 6... ONCE ONCE XX ; Start 01/06/17 at 05:00; Stop 01/06/17 at 05:01 HAMZAH WOODARD Jan 05, 2017 12:48
[2017-01-05 13:06] LABS: AADO2 Arterial 536.2 mmHg (7.0-24.0); Arterial Base Excess -1.8 mmol/L (-3.0-3); Arterial COHb 0.2 % (0.0-3.0); Arterial Fraction of Oxyhgb 97.6 % (93.0-99.0); Arterial HCO3 21.8 mmol/L (22.0-26.0); Arterial MetHb 0.3 % (0.0-1.5); Arterial Total Hemglobin 10.8 g/dl (12.0-18.0); MODE VENT - AC
--- NOTE | 2017-01-05 13:36 | RADRPT ---
PROCEDURE: XR Chest. CLINICAL INDICATION: Check endotracheal tube position. TECHNIQUE: Single frontal view. COMPARISON: 01/05/2017. 0822 hours. FINDINGS: The endotracheal tube has been inserted in satisfactory position with the tip 2 cm above the vijaya. There is mild atelectasis at the lung bases and there are low lung volumes. There is a left arm P ICC line with the tip in the cavoatrial junction region. The heart size is normal. There is no pleural effusion. There is no pneumothorax. IMPRESSION: 1. Endotracheal tube in satisfactory position. 2. Mild atelectasis at the lung bases and low lung volumes. 3. Left arm PICC line in satisfactory position. RPTAT: QQ .Jer Cotto MD, MD Date Time Electronically viewed and signed by .Jer Cotto MD, MD on 01/05/2017 13:36 .R/
[2017-01-05 13:41] LABS: HEMATOCRIT 27.9 % (37.0-47.0); HEMOGLOBIN 9.8 g/dl (12.0-16.0); PLATELET COUNT 210 10^3/UL (140-415)
[2017-01-05] MEDS ORDERED: PHYTONADIONE 10 MG/ML INJ SC ONE (14:00)
--- NOTE | 2017-01-05 14:02 | PN ---
Date/Time of Note Date/Time of Note DATE: 01/05/17 TIME: 13:58 Assessment/Plan VTE Prophylaxis VTE Prophylaxis Intervention: contraindicated Lines/Catheters IV Catheter Type (from Nrsg): PICC Line Central line still needed: Yes Urinary Cath still in place: Yes Reason Cath still needed: terminal illness/intractable pain Assessment/Plan Assessment/Plan Patient is a 51 year old woman with noted liver masses, s/p biopsy, course complicated by subcapsular hematoma >Coagulopathy Likely secondary to consumption as previous examinations were noted normal. Agree with continued administration of FFP given clinical bleeding. I will also administer vitamin K and recheck PT and PTT in the morning >Hematoma Monitor h/h serially with transfusion for hemoglobin less than 9 g/dL >Liver masses Interestingly, consistent with lymphoplasmacytic involvement SPEP showed to small spikes but no light chain assay seen on this EMR! Follow-up second opinion sent to [facility]. Case discussed with Dr. Kriss Martinez and Dr. Rothman to resume care in the morning. Subjective 24 Hr Interval Summary Free Text/Dictation Patient intubated. No other bleeding noted overnight Administered PRBC and 4 units FFP Subjective hx not possible: pt non-verbal, pt critical Exam/Review of Systems Vital Signs Vitals Vital Signs Date Time Temp Pulse Resp B/P Pulse Ox O2 Delivery O2 Flow Rate FiO2 01/05/17 11:45 120 14 100 100 01/05/17 06:45 93/75 01/05/17 06:00 High Flow 01/05/17 03:00 98.1 01/04/17 20:06 6.0 Intake and Output 01/04/17 01/04/17 01/05/17 15:00 23:00 07:00 Intake Total 991.25 ml 1443.75 ml 1700.500 ml Output Total 20 ml 20 ml Balance 991.25 ml 1423.75 ml 1680.500 ml Exam Constitutional: distress, other Head: atraumatic, normocephalic Eyes: nl conjunctiva, nl sclera ENMT: nl external ears & nose, nl lips & teeth Neck: non-tender Respiratory: clear to auscultation, normal air movement Cardiovascular: other, regular rate and rhythm Gastrointestinal: distended, firm Musculoskeletal: nl extremities to inspection Extremities: normal pulses Results Result Diagram: 01/05/1751801/05/17518 Results 24 hrs Laboratory Tests Test 01/04/17 14:00 01/04/17 14:16 01/04/17 18:22 01/04/17 19:31 Blood Gas Specimen Source Blood arterial Blood arterial Arterial Blood Date Drawn 01/04/2017 2:15:57 PM 01/04/2017 7:09:00 PM Arterial Blood pH (Temp corrected) 7.341 L 7.379 Arterial Blood pCO2 (Temp correct) 24.2 L 29.0 L Arterial Blood pO2 (Temp corrected) 198.7 H 163.9 H Arterial Blood HCO3 12.8 L 16.7 L Arterial Blood Base Excess -11.5 L -7.7 L Arterial Blood Oxygen Saturation 98.9 H 98.2 H Westley Test N/A ACCEPTAB Arterial Blood Gas Puncture Site Right Brachial Right Radial Arterial Blood Carboxyhemoglobin 0.3 0.3 Arterial Blood Methemoglobin 0.3 0.4 Blood Gas A-a O2 Differential 490.1 H 520.1 H Oxyhemoglobin Percent 98.3 97.5 Total Hemoglobin 9.1 L 6.5 L Blood Gas Temperature 37.0 37.0 Blood Gas Modality MASK - NRB NON-REBREATHING MASK FiO2 100.0 100.0 Blood Gas Notified Whom Prabhakar MELISSA Blood Gas Notified Time 01/04/2017 2:39:59 PM 01/04/2017 7:21:00 PM Hemoglobin 8.3 #L 5.3 #*L Hematocrit 25.8 #L 15.8 #L Prothrombin Time 18.3 #H Prothrombin Time Ratio 1.4 INR International Normalized Ratio 1.51 Activated Partial Thromboplast Time 28.1 Lactic Acid Level 13.2 *H 11.1 *H Sodium Level 133 L Potassium Level 5.3 H Chloride Level 97 Carbon Dioxide Level 17 L Anion Gap 24 H Blood Urea Nitrogen 23 H Creatinine 3.22 #H Glucose Level 100 # Calcium Level 7.9 L Blood Gas Critical Value Read Back Bree SYKES RN Test 01/04/17 23:20 01/05/17 00:05 01/05/17 01:55 01/05/17 02:15 White Blood Count 23.1 #H Red Blood Count 2.18 L Hemoglobin 6.5 #*L Hematocrit 19.8 #L Mean Corpuscular Volume 90.8 Mean Corpuscular Hemoglobin 29.8 Mean Corpuscular Hemoglobin Concent 32.8 Red Cell Distribution Width 17.4 H Platelet Count 286 # Mean Platelet Volume 11.4 H Neutrophils % 75.5 Lymphocytes % 13.3 L Monocytes % 7.4 Eosinophils % 0.0 Basophils % 0.2 Nucleated Red Blood Cells % 5.2 H Neutrophils # 17.5 H Lymphocytes # 3.1 H Monocytes # 1.7 H Eosinophils # 0.0 Basophils # 0.0 Nucleated Red Blood Cells # 1.2 H Lactic Acid Level 8.2 *H Blood Gas Specimen Source Blood arterial Arterial Blood Date Drawn 01/05/2017 5:00:49 AM Arterial Blood pH (Temp corrected) 7.429 Arterial Blood pCO2 (Temp correct) 29.3 L Arterial Blood pO2 (Temp corrected) 98.5 Arterial Blood HCO3 19.0 L Arterial Blood Base Excess -4.7 L Arterial Blood Oxygen Saturation 96.8 Westley Test ACCEPTAB Arterial Blood Gas Puncture Site Left Radial Arterial Blood Carboxyhemoglobin 0.3 Arterial Blood Methemoglobin 0.3 Blood Gas A-a O2 Differential 297.1 H Oxyhemoglobin Percent 96.2 Total Hemoglobin 8.2 L Blood Gas Temperature 37.0 Blood Gas Actual Respiration Rate 22 Blood Gas Modality HFNC FiO2 60.0 Blood Gas Notified Whom UP Blood Gas Notified Time 01/05/2017 5:15:09 AM Urine Color SISSY Urine Clarity CLOUDY A Urine pH 5.0 Urine Specific [place] 1.021 Urine Ketones TRACE A Urine Nitrite NEGATIVE Urine Bilirubin NEGATIVE Urine Urobilinogen NEGATIVE Urine Leukocyte Esterase 1+ H Urine Microscopic RBC > 182 H Urine Microscopic WBC 19 H Urine Hemoglobin 3+ H Urine Random Creatinine 154.00 Urine Random Sodium 17 L Urine Glucose 1+ H Urine Total Protein 93.0 H Test 01/05/17 05:19 01/05/17 05:19 01/05/17 07:59 01/05/17 11:06 White Blood Count 18.6 H Red Blood Count 1.98 L Hemoglobin 5.9 *L Hematocrit 17.6 L Mean Corpuscular Volume 88.9 Mean Corpuscular Hemoglobin 29.8 Mean Corpuscular Hemoglobin Concent 33.5 Red Cell Distribution Width 15.6 H Platelet Count 193 # Mean Platelet Volume 11.7 H Neutrophils % 74.0 Band Neutrophils % 7.0 H Lymphocytes % 19.0 Eosinophils % Neutrophils # 13.8 H Lymphocytes # 3.5 H Eosinophils # Prothrombin Time 28.3 #H Prothrombin Time Ratio 2.2 INR International Normalized Ratio 2.61 Activated Partial Thromboplast Time 40.6 H Fibrinogen 261.0 Sodium Level 151 #H Potassium Level 3.9 Chloride Level 106 Carbon Dioxide Level 32 #H Anion Gap 17 #H Blood Urea Nitrogen 27 H Creatinine 2.27 H Glucose Level 213 # Lactic Acid Level 5.2 *H Calcium Level 5.1 *L Phosphorus Level 6.2 H Magnesium Level 1.4 L Lab Scanned Report BLOOD TRANSFUSION Ionized Calcium (Measured) 0.9 L Total Bilirubin 0.1 L Direct Bilirubin 0.00 Indirect Bilirubin 0.1 Aspartate Amino Transf (AST/SGOT) 732 H Alanine Aminotransferase (ALT/SGPT) 217 H Alkaline Phosphatase 71 Total Protein 4.2 L Albumin 2.3 L Blood Gas Specimen Source Blood arterial Arterial Blood Date Drawn 01/05/2017 11:20:08 AM Arterial Blood pH (Temp corrected) 7.308 L Arterial Blood pCO2 (Temp correct) 45.5 H Arterial Blood pO2 (Temp corrected) 76.2 L Arterial Blood HCO3 22.3 Arterial Blood Base Excess -3.9 L Arterial Blood Oxygen Saturation 94.0 L Westley Test N/A Arterial Blood Gas Puncture Site LB Arterial Blood Carboxyhemoglobin 0.3 Arterial Blood Methemoglobin 0.2 Blood Gas A-a O2 Differential 591.3 H Oxyhemoglobin Percent 93.5 Total Hemoglobin 11.0 L Blood Gas Temperature 37.0 Blood Gas Modality HFNC FiO2 100.0 Blood Gas Notified Whom TM Blood Gas Notified Time 01/05/2017 11:26:59 AM Test 01/05/17 12:55 Blood Gas Specimen Source Blood arterial Arterial Blood Date Drawn 01/05/2017 12:45:41 PM Arterial Blood pH (Temp corrected) 7.438 Arterial Blood pCO2 (Temp correct) 33.0 L Arterial Blood pO2 (Temp corrected) 143.8 H Arterial Blood HCO3 21.8 L Arterial Blood Base Excess -1.8 Arterial Blood Oxygen Saturation 98.1 H Westley Test N/A Arterial Blood Gas Puncture Site A-Line Arterial Blood Carboxyhemoglobin 0.2 Arterial Blood Methemoglobin 0.3 Blood Gas A-a O2 Differential 536.2 H Oxyhemoglobin Percent 97.6 Total Hemoglobin 10.8 L Blood Gas Temperature 37.0 Blood Gas Respiration Rate 14.0 Blood Gas Actual Respiration Rate 22 Blood Gas Modality VENT - AC FiO2 100.0 Blood Gas Tidal Volume 500.0 Blood Gas Notified Whom Toshia GRAY Blood Gas Notified Time 01/05/2017 1:06:14 PM Medications Medications Current Medications Ondansetron HCl (Zofran Inj) 4 mg Q6H PRN IV NAUSEA AND/OR VOMITING Last administered on 01/05/17 02:20; Admin Dose 4 MG; Start 12/20/16 at 07:30 Acetaminophen (Tylenol Tab) 650 mg Q6H PRN PO PAIN LEVEL 1-3 OR FEVER Last administered on 12/30/16 12:40; Admin Dose 650 MG; Start 12/20/16 at 07:30 Morphine Sulfate (morphine) 4 mg Q4H PRN IV SEVERE PAIN LEVEL 7-10 Last administered on 01/04/17 06:27; Admin Dose 4 MG; Start 12/20/16 at 07:30 Amlodipine Besylate (Norvasc) 5 mg DAILY PO Last administered on 01/03/17 09: 01; Admin Dose 5 MG; Start 12/21/16 at 09:00 Acetaminophen/ Hydrocodone Bitart ([place] (5/325)) 1 tab Q6H PRN PO PAIN LEVEL 7 -10 Last administered on 01/03/17 21:54; Admin Dose 1 TAB; Start 12/30/16 at 18 :00 Hydromorphone HCl (Dilaudid) 1 mg Q4H PRN IV SEVERE PAIN LEVEL 7-10 Last administered on 01/05/17 02:21; Admin Dose 1 MG; Start 01/02/17 at 17:45 Docusate Sodium (Colace) 100 mg BID PO Last administered on 01/03/17 21:54; Admin Dose 100 MG; Start 01/03/17 at 21:00 Senna (Senokot) 1 tab BID PO Last administered on 01/03/17 21:54; Admin Dose 1 TAB; Start 01/03/17 at 21:00 Polyethylene Glycol 8.5 gm 8.5 gm DAILY PO Last administered on 01/03/17 17:36 ; Admin Dose 8.5 GM; Start 01/03/17 at 15:30 Cefepime HCl 50 ml @ 100 mls/hr DAILY IVPB Last administered on 01/04/17 16: 00; Admin Dose 100 MLS/HR; Start 01/04/17 at 10:00 Levetiracetam 100 ml @ 400 mls/hr Q12 IVPB Last administered on 01/05/17 08: 30; Admin Dose 400 MLS/HR; Start 01/04/17 at 11:00 Norepinephrine/ Dextrose (Levophed/D5W) 500 ml @ 1.87 mls/hr TITRATE IV Last administered on 01/05/17 09:13; Admin Dose 28.12 MLS/HR; Start 01/04/17 at 11: 00 Lorazepam (Ativan) 1 mg Q1H PRN IV Seizures; Start 01/04/17 at 19:30 IV Flush (NS 10 ml) 10 ml PRN PRN IV FLUSH LINE; Start 01/04/17 at 20:00 Morphine Sulfate (morphine) 2 mg Q4H PRN IV pain Last administered on 01:13; Admin Dose 2 MG; Start 01/05/17 at 01:30 Pantoprazole (Protonix Iv) 40 mg DAILY@06 IV Last administered on 01/05/17 06: 37; Admin Dose 40 MG; Start 01/05/17 at 06:30 Lorazepam 1 mg 1 mg Q4H PRN IV agitation Last administered on 01/05/17 12:10; Admin Dose 1 MG; Start 01/05/17 at 07:00 Sodium Chloride 1,000 ml @ 100 mls/hr Q10H IV ; Start 01/05/17 at 10:00 Vancomycin HCl 1.25 gm/Sodium Chloride 250 ml @ 83.333 mls/ hr Q48H IVPB ; Start 01/06/17 at 23:00 Fentanyl (Sublimaze) 100 ml @ 2.5 mls/hr TITRATE IV Last administered on 12:32; Admin Dose 2.5 MLS/HR; Start 01/05/17 at 12:25 Miscellaneous Information (*Rx Drug Level Order Reminder*) RANDOM VANCOMYCIN LEVEL 6... ONCE ONCE XX ; Start 01/06/17 at 05:00; Stop 01/06/17 at 05:01 GONZÁLEZ SORIA MD Jan 05, 2017 14:02
[2017-01-05 14:11] LABS: INR 1.97; PROTIME 22.6 Sec (12.2-14.2); PT RATIO 1.8
[2017-01-05 14:12] LABS: PARTIAL THROMBOPLASTIN TIME 36.7 Sec (25.0-35.0)
[2017-01-05 14:46] LABS: THROMBIN TIME 15.1 SEC (13.8-19.1)
[2017-01-05 14:56] LABS: D-DIMER 8305.08 ng/ml (<460)
[2017-01-05 16:19] LABS: FIBRIN SPLIT PRODUCT <10 ug/ml (<10)
--- NOTE | 2017-01-05 16:38 | OPR ---
DATE OF OPERATION: 01/05/2017 PREOPERATIVE DIAGNOSIS: Hypotension and sepsis. POSTOPERATIVE DIAGNOSES: Hypotension and sepsis. OPERATION PERFORMED: Left radial artery arterial catheter placement. COMPLICATIONS: None. INDICATIONS: This is a 51-year-old female with complex medical issues who has been transferred to [facility] intensive care unit and hypotensive requiring aggressive resuscitation measures. The patient at the moment has hypotensive and was just re-intubated and requires serial ABGs and closer monitoring; therefore, suggestion of arterial catheter placement was recommended. was discussed in regar ds to risks and benefits and alternatives and they have agreed to proceed. DESCRIPTION OF PROCEDURE: The patient was placed in supine position in her ICU bed. The left upper extremity was draped and prepped in the usual standard sterile fashion. The correct site was marke d and confirmed. A timeout was performed. Using an arrow kit, arterial catheter placement kit, an ultrasound-guided axis of the left radial artery was obtained. Appropriate blood pressure monitorin g was identified. The catheter line was flushed with saline solution. Patient tolerated procedure well and arterial catheter was secured with a 2-0 silk suture. All instrument, sponge and needle co unts were correct x2. Patient tolerated procedure well . Dictated By: RACHELL TINAJERO/DAR Conf#: [id number] DID#: [id number]
[2017-01-05] MEDS ORDERED: HEPARIN 1000 UNITS/NS (A-LINE) 1,000 ML ONE (16:46)
[2017-01-05] MEDS ORDERED: IODIXANOL LOCM 100 ML BTL ONE (16:46)
[2017-01-05] MEDS ORDERED: SOD CHLORIDE 0.9% 500 ML ONE (16:46)
[2017-01-05] MEDS ORDERED: LIDOCAINE 1% (MDV) 20 ML INJ ONE (16:46)
[2017-01-05] MEDS ORDERED: GELATIN SIZE 100 SPONGE TOP SCH (17:00)
[2017-01-05] MEDS ORDERED: MIDAZOLAM 1 MG/ML 2 ML INJ ONE ×2 (17:14→17:30)
--- NOTE | 2017-01-05 18:37 | PN ---
DATE: 01/05/2017 SUBJECTIVE: The patient was intubated this morning secondary to acute respiratory distress. Currently sedated, opens eyes. No fevers. She is tachycardic. VITAL SIGNS: Temperature 98.5, pulse 127, respirations 19, blood pressure 103/ 78, saturation 97% on 60 FIO2. LABORATORY DATA: WBC today 18.6, H and H in the morning, 5.9 and 17.6, platelets 193, neutrophils 74, bands 7, lymphs 19. BUN 27, creatinine 2.27. Lactic acid 2.3. INDWELLINGS: Endotracheal tube, NG tube, PICC line, Lau. DIAGNOSTICS: Chest x-ray this morning revealed atelectasis versus mild infiltrate at the lung bases. ANTIMICROBIALS: 1. Vancomycin. 2. Cefepime. PHYSICAL EXAMINATION: GENERAL: Obese, well-developed, middle-aged woman who is intubated, sedated, in no distress. HEENT: Head atraumatic, normocephalic. Sclerae anicteric. Buccal mucosa dry. NECK: Supple. CHEST: Rise symmetrical. Breath sounds diminished to bases. HEART: S1, S2. ABDOMEN: Soft, bowel tones present. EXTREMITIES: With trace edema. ASSESSMENT: 1. Shock, possibly septic and hypovolemic given acute and progressive anemia. Again, questionable liver abscess, although no evidence per pathology report. 2. Portal and hepatic vein thrombosis. 3. Acute anemia, likely from subcapsular bleed from hepatic biopsy and being on anticoagulation. 4. Status post streptococcal bacteremia on admission with repeat blood cultures being negative, patient completed 2 weeks of antibiotics. 5. Acute respiratory failure, possible healthcare-acquired pneumonia. 6. Pulmonary nodules, questionable neoplastic. 7. Acute renal failure, possibly secondary to contrast nephropathy versus shock. Nephrology on case. 8. Intrauterine mass. Gynecology on case. PLAN: The patient is doing poorly. We are going to change cefepime to Zosyn. Continue vancomycin. Repeat cultures. Follow recommendations of consultants. Dictated By: NANCY HULL BOBTAILER for MAVIS MCKEON MD NI/NTS Conf#: [id number] DID#: [id number] CC: DOUGIE MARTINEZ MD;*EndCC* [facility]
[2017-01-05 18:47] LABS: HEMATOCRIT 18.6 % (37.0-47.0)
[2017-01-05 18:53] LABS: HEMOGLOBIN 6.9 g/dl (12.0-16.0)
[2017-01-05] MEDS ORDERED: SOD CHLORIDE 0.9% 1,000 ML IV ONE (19:00)
[2017-01-05 21:17] LABS: INR 1.65; PROTIME 19.6 Sec (12.2-14.2); PT RATIO 1.5
[2017-01-05] MEDS ORDERED: MAGNESIUM SULFATE 1 GM/D5W 0 ML ONE (21:17)
[2017-01-05 21:19] LABS: CALCIUM 7.3 mg/dl (8.4-10.2); CREATININE 3.83 mg/dl (0.44-1.00); POTASSIUM 4.4 mmol/L (3.5-5.1)
[2017-01-05] MEDS: PIPER-TAZO 2.25 GM (PMX) 50 ML IVPB SCH (21:30)
[2017-01-05] MEDS ORDERED: VANCOMYCIN 1.25 GM in SOD CHLORIDE 0.9% 250 ML IVPB SCH (22:00)
[2017-01-06] VITALS (77 sets, daily range): BP systolic 104–184; BP diastolic 59–103; PULSE 99–125; RESP 14–34
[2017-01-06 00:41] LABS: HEMATOCRIT 15.8 % (37.0-47.0)
[2017-01-06 00:57] LABS: HEMOGLOBIN 5.5 g/dl (12.0-16.0)
[2017-01-06] MEDS: SOD CHLORIDE 0.45% 1,000 ML IV SCH ×3 (02:43→17:47)
[2017-01-06] MEDS: hydrALAzine 20 MG INJ IV PRN (03:21)
[2017-01-06] MEDS: PANTOPRAZOLE 40 MG INJ IV SCH (05:28)
[2017-01-06] MEDS: PIPER-TAZO 2.25 GM (PMX) 50 ML IVPB SCH ×3 (05:31→21:33)
[2017-01-06 06:17] LABS: ADD SCAN DIFF NO
[2017-01-06 06:27] LABS: BASOPHILS % 0.3 % (0.0-2.0); EOSINOPHILS % 0.3 % (0.0-7.0); HEMOGLOBIN 7.6 g/dl (12.0-16.0); LYMPHOCYTES # 1.6 10^3/ul (0.8-2.9); LYMPHOCYTES % 13.1 % (15.0-51.0); MEAN CORPUSCULAR HGB CONC 34.5 g/dl (32.0-37.0); MEAN PLATELET VOLUME 11.1 fl (7.4-10.4); MONOCYTE # 0.9 10^3/ul (0.3-0.9); MONOCYTES % 7.3 % (0.0-11.0); NEUTROPHIL # 9.4 10^3/ul (1.6-7.5); NUCLEATED RED BLOOD CELLS # 0.9 10^3/ul (0.0-0.0); NUCLEATED RED BLOOD CELLS% 7.4 /100WBC (0.0-0.0); PLATELET COUNT 146 10^3/UL (140-415); RED BLOOD COUNT 2.53 10^6/ul (4.20-5.40); RED CELL DISTRIBUTION WIDTH 14.7 % (11.5-14.5); WHITE BLOOD COUNT 12.2 10^3/ul (4.8-10.8)
[2017-01-06 06:51] LABS: INR 1.22; PROTIME 15.5 Sec (12.2-14.2); PT RATIO 1.2
[2017-01-06 07:00] LABS: CALCIUM 7.8 mg/dl (8.4-10.2); CREATININE 3.49 mg/dl (0.44-1.00); MAGNESIUM 1.9 mg/dl (1.7-2.5); PHOSPHORUS 6.9 mg/dl (2.5-4.9); POTASSIUM 3.9 mmol/L (3.5-5.1)
[2017-01-06 07:10] LABS: ALBUMIN 3.7 g/dl (3.3-4.9); BILIRUBIN,INDIRECT 0.7 mg/dl (0-1.1); BILIRUBIN,TOTAL 0.7 mg/dl (0.2-1.3); TOTAL PROTEIN 6.1 g/dl (6.1-8.1)
--- NOTE | 2017-01-06 07:51 | RADRPT ---
PROCEDURE: XR Chest. CLINICAL INDICATION: Shortness of breath. TECHNIQUE: Single frontal view. COMPARISON: 01/05/2017. FINDINGS: The endotracheal tube is in satisfactory position. There is atelectasis at the lung bases and low l rodrick volumes, unchanged. The left arm PICC line tip is in the cavoatrial junction region. The heart size is normal. There is no pleural effusion. There is no pneumothorax. IMPRESSION: 1. No change from 01/05/2017. RPTAT: QQ .Jer Cotto MD, MD Date Time Electronically viewed and signed by .Jer Cotto MD, MD on 01/06/2017 07:51 .R/
[2017-01-06] MEDS: FENTAnyl (DRIP) 1000 mcg/100mL 100 ML IV SCH ×2 (08:38→17:47)
[2017-01-06] MEDS: AMLODIPINE 5 MG TAB PO SCH (08:40)
[2017-01-06] MEDS: SENNA TAB PO SCH ×2 (08:40→20:55)
[2017-01-06] MEDS: POLYETHYLENE GLYCOL 17 GM PACKET PO SCH (08:40)
[2017-01-06] MEDS: DOCUSATE SODIUM 100 MG CAP PO SCH ×2 (08:40→20:54)
--- NOTE | 2017-01-06 08:58 | PN ---
Date/Time of Note Date/Time of Note DATE: 01/06/17 TIME: 08:38 Assessment/Plan VTE Prophylaxis VTE Prophylaxis Intervention: SCD's Lines/Catheters IV [facility] Type [facility] arterial sheath Urinary Cath still in place: Yes Reason Cath still needed: other (indicate) Assessment/Plan Assessment/Plan 51-year-old female who had initially presented with abdominal pain and was found to have extensive portal vein and right hepatic vein thrombosis. Initial imaging was concerning for multiple liver lesions, pulmonary nodules, as well as a uterine mass. She was started on anticoagulation for her thrombosis, while she underwent further workup for her right-sided liver masses to rule out a metastatic process. She needed an MRI with gadolinium contrast, however she developed acute renal insufficiency from contrast versus vancomycin, and we had to wait for renal function to normalize before she could get the MRI. She got the MRI and subsequently underwent a liver biopsy. Pathology showed concern for lymphoplasmacytic involvement, and a second opinion has been sent to [facility] and is still pending. However in the interim, patient has decompensated; initially complaining of her right upper quadrant pain after the biopsy , was found to have a capsular hematoma thought to be from the location of biopsy with moderate blood seen throughout the abdomen and pelvis. She was also found to have severe coagulopathy concerning for DIC. She is at this time being managed in the ICU for the followin. Severe systemic shock likely hypovolemic from acute intra-abdominal hemorrhage causing possible DIC 2. Ventilator dependent respiratory failure secondary to #3 3. Acute encephalopathy secondary to #4 4. Recurrence of acute kidney injury secondary to #1 5. Concern for metastatic disease with hepatic masses as well as uterine mass 6. Hypertension> hypotensive with systemic shock and tachycardia now off pressor support 7. Diffuse venous thrombosis to include hepatic, portal, and right upper extremity veins also suggestive of metastatic disease 8. Status post alpha hemolytic strep bacteremia 9. Solitary seizure episode likely secondary to #1 Plan: * Continue ICU monitoring care and aggressive mgt * Serial labs and replacement of blood prod FFP / Vit K / PRBC / Platelets as indicated / appreciate hematology input and help * Monitor renal and hepatic function / IVF Is normal saline at 75 cc an hour * Continue Vent support and begin weaning when more stable * Per report patient is status post hepatic artery ligation versus embolization and hence is high risk for hepatic failure as she already had a hepatic vein thrombosis. Closely monitor. * Patient is also on Keppra for single seizure episode * Follow-up final pathology results from [facility] * Regarding uterine lesion, patient is going to total hysterectomy and possible salpingo-oophorectomy with mass excision and biopsy when stable Prophylaxis: SCDs/IV PPI Prognosis: Guarded CC time >45mins Subjective 24 Hr Interval Summary Free Text/Dictation Patient remains intubated, but will arouse follow commands. Spoke at length with family member at bedside Exam/Review of Systems Vital Signs Vitals Vital Signs Date Time Temp Pulse Resp B/P Pulse Ox O2 Delivery O2 Flow Rate FiO2 01/06/17 07:45 122 19 143/83 97 01/06/17 07:00 Mechanical Ventilator 01/06/17 05:15 55 01/06/17 04:00 98.4 01/04/17 20:06 6.0 Intake and Output 01/05/17 01/05/17 01/06/17 15:00 23:00 07:00 Intake Total 207.98 ml 716 ml 1965 ml Output Total 500 ml 840 ml Balance 207.98 ml 216 ml 1125 ml Exam GENERAL: Arousable, comfortable on vent HEENT: HUMBERTO, Intubated, Vent settings noted , High o2 requirement / high peep LUNGS: diffusely diminished and coarse BS HEART: S1, S2. No murmur, gallops or rubs. Tachycardic ABDOMEN: Soft, full, Normoactive bowel sounds. GENITOURINARY: Normal female external genitalia, Lau to bedside drainage EXTREMITIES: No edema NEUROLOGIC: Moves all 4 extremities, currently requiring restraints SKIN: Otherwise, unremarkable. Results Result Diagram: 01/06/17 0500 01/06/17 0500 Results 24 hrs Laboratory Tests Test 01/05/17 11:06 01/05/17 12:55 01/05/17 13:20 01/05/17 18:28 Blood Gas Specimen Source Blood arterial Blood arterial Arterial Blood Date Drawn 01/05/2017 11:20:08 AM 01/05/2017 12:45:41 PM Arterial Blood pH (Temp corrected) 7.308 L 7.438 Arterial Blood pCO2 (Temp correct) 45.5 H 33.0 L Arterial Blood pO2 (Temp corrected) 76.2 L 143.8 H Arterial Blood HCO3 22.3 21.8 L Arterial Blood Base Excess -3.9 L -1.8 Arterial Blood Oxygen Saturation 94.0 L 98.1 H Westley Test N/A N/A Arterial Blood Gas Puncture Site LB A-Line Arterial Blood Carboxyhemoglobin 0.3 0.2 Arterial Blood Methemoglobin 0.2 0.3 Blood Gas A-a O2 Differential 591.3 H 536.2 H Oxyhemoglobin Percent 93.5 97.6 Total Hemoglobin 11.0 L 10.8 L Blood Gas Temperature 37.0 37.0 Blood Gas Modality HFNC VENT - AC FiO2 100.0 100.0 Blood Gas Notified Whom ASHA GRAY Blood Gas Notified Time 01/05/2017 11:26:59 AM 01/05/2017 1:06:14 PM Blood Gas Respiration Rate 14.0 Blood Gas Actual Respiration Rate 22 Blood Gas Tidal Volume 500.0 Hemoglobin 9.8 #L 6.9 #*L Hematocrit 27.9 #L 18.6 #L Platelet Count 210 Prothrombin Time 22.6 #H Prothrombin Time Ratio 1.8 INR International Normalized Ratio 1.97 Activated Partial Thromboplast Time 36.7 H Thrombin Time 15.1 Fibrinogen 376.0 # Plasma Fibrin Degradation Products <10 D-Dimer 8305.08 H D-Dimer Comment Lactic Acid Level 2.3 H 1.4 Test 01/05/17 20:47 01/06/17 00:30 01/06/17 05:00 01/06/17 05:05 Prothrombin Time 19.6 H 15.5 #H Prothrombin Time Ratio 1.5 1.2 INR International Normalized Ratio 1.65 1.22 Sodium Level 135 # 138 Potassium Level 4.4 3.9 Chloride Level 100 100 Carbon Dioxide Level 26 27 Anion Gap 13 15 Blood Urea Nitrogen 40 #H 37 H Creatinine 3.83 #H 3.49 H Glucose Level 92 # 83 Calcium Level 7.3 L 7.8 L Magnesium Level 2.0 1.9 Hemoglobin 5.5 #*L 7.6 #L Hematocrit 15.8 L 22.0 #L Lactic Acid Level 1.0 1.1 White Blood Count 12.2 #H Red Blood Count 2.53 #L Mean Corpuscular Volume 87.0 Mean Corpuscular Hemoglobin 30.0 Mean Corpuscular Hemoglobin Concent 34.5 Red Cell Distribution Width 14.7 H Platelet Count 146 # Mean Platelet Volume 11.1 H Neutrophils % 77.0 Lymphocytes % 13.1 L Monocytes % 7.3 Eosinophils % 0.3 Basophils % 0.3 Nucleated Red Blood Cells % 7.4 H Neutrophils # 9.4 H Lymphocytes # 1.6 Monocytes # 0.9 Eosinophils # 0.0 Basophils # 0.0 Nucleated Red Blood Cells # 0.9 H Activated Partial Thromboplast Time 32.0 Phosphorus Level 6.9 H Total Bilirubin 0.7 Direct Bilirubin 0.00 Indirect Bilirubin 0.7 Aspartate Amino Transf (AST/SGOT) 742 H Alanine Aminotransferase (ALT/SGPT) 246 H Alkaline Phosphatase 99 Total Protein 6.1 # Albumin 3.7 # Random Vancomycin Level 11.5 Lab Scanned Report BLOOD TRANSFUSION Medications Medications Current Medications Ondansetron HCl (Zofran Inj) 4 mg Q6H PRN IV NAUSEA AND/OR VOMITING Last administered on 01/05/17 02:20; Admin Dose 4 MG; Start 12/20/16 at 07:30 Acetaminophen (Tylenol Tab) 650 mg Q6H PRN PO PAIN LEVEL 1-3 OR FEVER Last administered on 12/30/16 12:40; Admin Dose 650 MG; Start 12/20/16 at 07:30 Morphine Sulfate (morphine) 4 mg Q4H PRN IV SEVERE PAIN LEVEL 7-10 Last administered on 01/04/17 06:27; Admin Dose 4 MG; Start 12/20/16 at 07:30 Amlodipine Besylate (Norvasc) 5 mg DAILY PO Last administered on 01/03/17 09: 01; Admin Dose 5 MG; Start 12/21/16 at 09:00 Acetaminophen/ Hydrocodone Bitart (Alberta (5/325)) 1 tab Q6H PRN PO PAIN LEVEL 7 -10 Last administered on 01/03/17 21:54; Admin Dose 1 TAB; Start 12/30/16 at 18 :00 Hydromorphone HCl (Dilaudid) 1 mg Q4H PRN IV SEVERE PAIN LEVEL 7-10 Last administered on 01/05/17 02:21; Admin Dose 1 MG; Start 01/02/17 at 17:45 Docusate Sodium (Colace) 100 mg BID PO Last administered on 01/03/17 21:54; Admin Dose 100 MG; Start 01/03/17 at 21:00 Senna (Senokot) 1 tab BID PO Last administered on 01/03/17 21:54; Admin Dose 1 TAB; Start 01/03/17 at 21:00 Polyethylene Glycol 8.5 gm 8.5 gm DAILY PO Last administered on 01/03/17 17:36 ; Admin Dose 8.5 GM; Start 01/03/17 at 15:30 Levetiracetam 100 ml @ 400 mls/hr Q12 IVPB Last administered on 01/05/17 21: 31; Admin Dose 400 MLS/HR; Start 01/04/17 at 11:00 Norepinephrine/ Dextrose (Levophed/D5W) 500 ml @ 1.87 mls/hr TITRATE IV Last administered on 01/05/17 09:13; Admin Dose 28.12 MLS/HR; Start 01/04/17 at 11: 00 Lorazepam (Ativan) 1 mg Q1H PRN IV Seizures; Start 01/04/17 at 19:30 IV Flush (NS 10 ml) 10 ml PRN PRN IV FLUSH LINE; Start 01/04/17 at 20:00 Morphine Sulfate (morphine) 2 mg Q4H PRN IV pain Last administered on 01:13; Admin Dose 2 MG; Start 01/05/17 at 01:30 Pantoprazole (Protonix Iv) 40 mg DAILY@06 IV Last administered on 01/06/17 05: 28; Admin Dose 40 MG; Start 01/05/17 at 06:30 Lorazepam 1 mg 1 mg Q4H PRN IV agitation Last administered on 01/05/17 12:10; Admin Dose 1 MG; Start 01/05/17 at 07:00 Sodium Chloride 1,000 ml @ 75 mls/hr [id number] IV Last administered on 05:28; Admin Dose 150 MLS/HR; Start 01/05/17 at 10:00 Fentanyl 100 ml @ 2.5 mls/hr TITRATE IV Last administered on 01/05/17 22:18; Admin Dose 10 MLS/HR; Start 01/05/17 at 12:25 Piperacillin Sod/ Tazobactam Sod (Zosyn 2.25gm/ 50ml (Pmx)) 50 ml @ 100 mls/hr Q8 IVPB Last administered on 01/06/17 05:31; Admin Dose 100 MLS/HR; Start at 22:00 Hydralazine HCl 10 mg 10 mg Q2H PRN IV SBP >170 Last administered on 01/06/17t 03:21; Admin Dose 10 MG; Start 01/06/17 at 03:00 Vancomycin HCl (Vancocin) 250 ml @ 125 mls/hr Q48H IVPB ; Start 01/06/17 at 10: 00 KAHLIL MARTEL Jan 06, 2017 08:49
[2017-01-06 09:36] LABS: AADO2 Arterial 232.9 mmHg (7.0-24.0); Arterial Base Excess 0.4 mmol/L (-3.0-3); Arterial COHb 0.3 % (0.0-3.0); Arterial Fraction of Oxyhgb 94.4 % (93.0-99.0); Arterial HCO3 24.3 mmol/L (22.0-26.0); Arterial MetHb 0.6 % (0.0-1.5); Blood Gas Low PEEP Setting 0 cmH2O; MODE VENT - AC
[2017-01-06] MEDS: LEVETIRACETAM 1000 MG (PMX) 100 ML IVPB SCH ×2 (09:44→20:53)
[2017-01-06] MEDS: VANCOMYCIN 1 GM in NS 250 ML IVPB SCH (09:45)
--- NOTE | 2017-01-06 10:16 | PN ---
DATE: 01/06/2017 SUBJECTIVE: The patient remains critically ill. The patient is currently off pressor support and n oted to be normotensive to hypertensive. The patient's urinary output has improved. She has put ou t over approximately 1 liter in the last 24 hours. No other acute events noted. No hemoptysis, hem atemesis or hematochezia. The patient was intubated yesterday. No other events noted. OBJECTIVE: VITAL SIGNS: Blood pressure is 143/83, respirations 19, pulse 122, temperature 98.6. HEENT: Head is normocephalic. Pupils are reactive to light. NECK: Supple. HEART: Regular rate. LUNGS: Show diminished breath sounds at base. ABDOMEN: Soft, nontender to palpation. No rebound or guarding. EXTREMITIES: Negative for clubbing, cyanosis, no edema. DERMATOLOGIC: No rashes. MUSCULOSKELETAL: No joint effusions. NEUROLOGIC: No change in exam. MEDICATIONS: The patient's medications have been reviewed. LABORATORY DATA: Chest x-ray shows no change from 01/05. The patient has a white count 12.2, hemog lobin 7.6, hematocrit 22.0, platelet count 146. Sodium 138, potassium 3.9, BUN 37, creatinine 3.49, phosphorus 6.9. ASSESSMENT AND PLAN: 1. Nonoliguric acute kidney injury with previously normal baseline creatinine. Etiology secondary to acute tubular necrosis due to severe anemia, ischemic hypoperfusion, shock. The patient is curre ntly in injury phase of acute tubular necrosis as renal function continues to decline. Patient, how ever, is nonoliguric. Urinary output has improved. At this point, would continue current treatment plan, supportive care, renally dose all medications. No immediate need for renal replacement thera py at this time. 2. Anemia secondary to intra-abdominal bleed. The patient had a liver hematoma, capsular. The pat ient is status post multiple blood products. At this point, hemoglobin levels appear to be stabiliz ing. We will defer to surgical services and IR if further intervention is needed. 3. Mineral bone disease. Will continue to monitor calcium, phosphorus levels. No need for phospha te binders at this time. 4. Mixed acid base disorder. The patient has a respiratory alkalosis, metabolic acidosis and a met abolic alkalosis. Last ABG was reviewed. No need for bicarbonate drip. Will continue to observe. 5. Sepsis. The patient is status post shock, currently off pressor support. Continue current anti biotic regimen. Continue IV fluids. Will decrease rate. 6. Ventilator dependent respiratory failure. Vent settings have been reviewed. ABG has been revie wed. Continue to monitor. 7. Portal vein thrombosis. 8. Multiple liver lesions status post biopsy. Findings consistent with possible lymphoplasmacytic involvement will continue to monitor. Follow up with hematology. 9. Uterine mass. Followup with Gynecology/Oncology. Status post code arrest. Please note I spent over 45 minutes of critical care time with this patient. Dictated By: MILLY DAIGLE DO NR/NTS Conf#: [id number] DID#: [id number]
--- NOTE | 2017-01-06 10:29 | CONS ---
Date/Time of Note Date/Time of Note DATE: 01/06/17 TIME: 10:24 Assessment/Plan Assessment/Plan Additional Assessment/Plan Ventilator setting; AC of 14, tidal volume 500, PEEP of 0, 50% FiO2. Chest x-ray was reviewed from today which is showing bibasilar atelectasis. Endotracheal tube is at an adequate level. Assessment recommendations; 1. Patient initially admitted for abdominal pain discovered to have multiple hepatic lesions thought to be abscesses with hematogenous spread to the lungs causing bilateral pneumonia. However patient underwent liver biopsy then later on developed massive subcapsular hepatic hematoma causing severe hypotension as well as anemia requiring multiple FFP and RBC packed cell transfusions. 2. Respiratory failure now requiring invasive mechanical ventilation. 3. Stable hematocrit now over the last 24 hours. 4. Underlying malignancy still cannot be entirely excluded. Liver biopsy has been negative and possibly nonconclusive. 5. Slightly improved serum creatinine from today. Patient maintaining adequate urine output. 6. Portal vein thrombosis. Continue current supportive care. Decrease FiO2 to 40%. Add PEEP of 5. 35 minutes of critical care time was spent evaluating the patient. Consultation Date/Type/Reason Admit Date/Time Dec 19, 2016 at 21:34 Initial Consult Date 12/20/16 Type of Consultation: Pulmonary/critical care Referring Provider: KAHLIL MARTEL 24 HR Interval Summary Free Text/Dictation Patient condition remains critical. Requiring intubation by the ER physician yesterday afternoon. By the time I saw the patient this morning the patient is orally intubated, sedated and does not appear to be in any distress. Exam/Review of Systems Vital Signs Vitals Vital Signs Date Time Temp Pulse Resp B/P Pulse Ox O2 Delivery O2 Flow Rate FiO2 01/06/17 09:30 122 14 104/63 98 01/06/17 09:00 Mechanical Ventilator 01/06/17 08:00 50 01/06/17 04:00 98.4 01/04/17 20:06 6.0 Intake and Output 01/05/17 01/05/17 01/06/17 15:00 23:00 07:00 Intake Total 207.98 ml 716 ml 1965 ml Output Total 500 ml 890 ml Balance 207.98 ml 216 ml 1075 ml Exam HEENT exam; supple neck, no JVD. No lymphadenopathy midline trachea. No thyromegaly. Orally intubated. Patient has fair dentition. Pupils are small bilaterally. No neck masses. Chest exam; diminished but clear breath sound. S1-S2 audible, no murmurs. Regular rhythm. Abdomen exam; soft, bowel sounds are sluggish. No organomegaly. Extremity exam is; no peripheral edema. Pulses 1+ bilaterally. QUILL REAMER exam; patient is sedated. Results Result Diagram: 01/06/17 0500 01/06/17 0500 Results 24 hrs Laboratory Tests Test 01/05/17 11:06 01/05/17 12:55 01/05/17 13:20 01/05/17 18:28 Blood Gas Specimen Source Blood arterial Blood arterial Arterial Blood Date Drawn 01/05/2017 11:20:08 AM 01/05/2017 12:45:41 PM Arterial Blood pH (Temp corrected) 7.308 L 7.438 Arterial Blood pCO2 (Temp correct) 45.5 H 33.0 L Arterial Blood pO2 (Temp corrected) 76.2 L 143.8 H Arterial Blood HCO3 22.3 21.8 L Arterial Blood Base Excess -3.9 L -1.8 Arterial Blood Oxygen Saturation 94.0 L 98.1 H Westley Test N/A N/A Arterial Blood Gas Puncture Site LB A-Line Arterial Blood Carboxyhemoglobin 0.3 0.2 Arterial Blood Methemoglobin 0.2 0.3 Blood Gas A-a O2 Differential 591.3 H 536.2 H Oxyhemoglobin Percent 93.5 97.6 Total Hemoglobin 11.0 L 10.8 L Blood Gas Temperature 37.0 37.0 Blood Gas Modality HFNC VENT - AC FiO2 100.0 100.0 Blood Gas Notified Whom ASHA Toshia GRAY Blood Gas Notified Time 01/05/2017 11:26:59 AM 01/05/2017 1:06:14 PM Blood Gas Respiration Rate 14.0 Blood Gas Actual Respiration Rate 22 Blood Gas Tidal Volume 500.0 Hemoglobin 9.8 #L 6.9 #*L Hematocrit 27.9 #L 18.6 #L Platelet Count 210 Prothrombin Time 22.6 #H Prothrombin Time Ratio 1.8 INR International Normalized Ratio 1.97 Activated Partial Thromboplast Time 36.7 H Thrombin Time 15.1 Fibrinogen 376.0 # Plasma Fibrin Degradation Products <10 D-Dimer 8305.08 H D-Dimer Comment Lactic Acid Level 2.3 H 1.4 Test 01/05/17 20:47 01/06/17 00:30 01/06/17 05:00 01/06/17 05:05 Prothrombin Time 19.6 H 15.5 #H Prothrombin Time Ratio 1.5 1.2 INR International Normalized Ratio 1.65 1.22 Sodium Level 135 # 138 Potassium Level 4.4 3.9 Chloride Level 100 100 Carbon Dioxide Level 26 27 Anion Gap 13 15 Blood Urea Nitrogen 40 #H 37 H Creatinine 3.83 #H 3.49 H Glucose Level 92 # 83 Calcium Level 7.3 L 7.8 L Magnesium Level 2.0 1.9 Hemoglobin 5.5 #*L 7.6 #L Hematocrit 15.8 L 22.0 #L Lactic Acid Level 1.0 1.1 White Blood Count 12.2 #H Red Blood Count 2.53 #L Mean Corpuscular Volume 87.0 Mean Corpuscular Hemoglobin 30.0 Mean Corpuscular Hemoglobin Concent 34.5 Red Cell Distribution Width 14.7 H Platelet Count 146 # Mean Platelet Volume 11.1 H Neutrophils % 77.0 Lymphocytes % 13.1 L Monocytes % 7.3 Eosinophils % 0.3 Basophils % 0.3 Nucleated Red Blood Cells % 7.4 H Neutrophils # 9.4 H Lymphocytes # 1.6 Monocytes # 0.9 Eosinophils # 0.0 Basophils # 0.0 Nucleated Red Blood Cells # 0.9 H Differential Comment AUTO w/SCAN Activated Partial Thromboplast Time 32.0 Phosphorus Level 6.9 H Total Bilirubin 0.7 Direct Bilirubin 0.00 Indirect Bilirubin 0.7 Aspartate Amino Transf (AST/SGOT) 742 H Alanine Aminotransferase (ALT/SGPT) 246 H Alkaline Phosphatase 99 Total Protein 6.1 # Albumin 3.7 # Random Vancomycin Level 11.5 Lab Scanned Report BLOOD TRANSFUSION Test 01/06/17 07:00 Blood Gas Specimen Source Blood arterial Arterial Blood Date Drawn 01/06/2017 7:40:44 AM Arterial Blood pH (Temp corrected) 7.450 Arterial Blood pCO2 (Temp correct) 35.8 Arterial Blood pO2 (Temp corrected) 83.3 Arterial Blood HCO3 24.3 Arterial Blood Base Excess 0.4 Arterial Blood Oxygen Saturation 95.3 Westley Test N/A Arterial Blood Gas Puncture Site A-Line Arterial Blood Carboxyhemoglobin 0.3 Arterial Blood Methemoglobin 0.6 Blood Gas A-a O2 Differential 232.9 H Oxyhemoglobin Percent 94.4 Total Hemoglobin 8.0 L Blood Gas Temperature 37.0 Blood Gas Respiration Rate 14.0 Blood Gas Actual Respiration Rate 18 Blood Gas Modality VENT - AC FiO2 50.0 Blood Gas Tidal Volume 500.0 Blood Gas Low PEEP Setting 0 Blood Gas Notified Whom JLD Blood Gas Notified Time 01/06/2017 7:56:41 AM Medications Medications Current Medications Ondansetron HCl (Zofran Inj) 4 mg Q6H PRN IV NAUSEA AND/OR VOMITING Last administered on 01/05/17 02:20; Admin Dose 4 MG; Start 12/20/16 at 07:30 Acetaminophen (Tylenol Tab) 650 mg Q6H PRN PO PAIN LEVEL 1-3 OR FEVER Last administered on 12/30/16 12:40; Admin Dose 650 MG; Start 12/20/16 at 07:30 Morphine Sulfate (morphine) 4 mg Q4H PRN IV SEVERE PAIN LEVEL 7-10 Last administered on 01/04/17 06:27; Admin Dose 4 MG; Start 12/20/16 at 07:30 Amlodipine Besylate (Norvasc) 5 mg DAILY PO Last administered on 01/03/17 09: 01; Admin Dose 5 MG; Start 12/21/16 at 09:00 Acetaminophen/ Hydrocodone Bitart ([place] (5/325)) 1 tab Q6H PRN PO PAIN LEVEL 7 -10 Last administered on 01/03/17 21:54; Admin Dose 1 TAB; Start 12/30/16 at 18 :00 Hydromorphone HCl (Dilaudid) 1 mg Q4H PRN IV SEVERE PAIN LEVEL 7-10 Last administered on 01/05/17 02:21; Admin Dose 1 MG; Start 01/02/17 at 17:45 Docusate Sodium (Colace) 100 mg BID PO Last administered on 01/03/17 21:54; Admin Dose 100 MG; Start 01/03/17 at 21:00 Senna (Senokot) 1 tab BID PO Last administered on 01/03/17 21:54; Admin Dose 1 TAB; Start 01/03/17 at 21:00 Polyethylene Glycol 8.5 gm 8.5 gm DAILY PO Last administered on 01/03/17 17:36 ; Admin Dose 8.5 GM; Start 01/03/17 at 15:30 Levetiracetam 100 ml @ 400 mls/hr Q12 IVPB Last administered on 01/06/17 09: 44; Admin Dose 400 MLS/HR; Start 01/04/17 at 11:00 Norepinephrine/ Dextrose (Levophed/D5W) 500 ml @ 1.87 mls/hr TITRATE IV Last administered on 01/05/17 09:13; Admin Dose 28.12 MLS/HR; Start 01/04/17 at 11: 00 Lorazepam (Ativan) 1 mg Q1H PRN IV Seizures; Start 01/04/17 at 19:30 IV Flush (NS 10 ml) 10 ml PRN PRN IV FLUSH LINE; Start 01/04/17 at 20:00 Morphine Sulfate (morphine) 2 mg Q4H PRN IV pain Last administered on 01:13; Admin Dose 2 MG; Start 01/05/17 at 01:30 Pantoprazole (Protonix Iv) 40 mg DAILY@06 IV Last administered on 01/06/17 05: 28; Admin Dose 40 MG; Start 01/05/17 at 06:30 Lorazepam 1 mg 1 mg Q4H PRN IV agitation Last administered on 01/05/17 12:10; Admin Dose 1 MG; Start 01/05/17 at 07:00 Sodium Chloride 1,000 ml @ 75 mls/hr [id number] IV Last administered on 05:28; Admin Dose 150 MLS/HR; Start 01/05/17 at 10:00 Fentanyl 100 ml @ 2.5 mls/hr TITRATE IV Last administered on 01/06/17 08:38; Admin Dose 10 MLS/HR; Start 01/05/17 at 12:25 Piperacillin Sod/ Tazobactam Sod (Zosyn 2.25gm/ 50ml (Pmx)) 50 ml @ 100 mls/hr Q8 IVPB Last administered on 01/06/17 05:31; Admin Dose 100 MLS/HR; Start at 22:00 Hydralazine HCl 10 mg 10 mg Q2H PRN IV SBP >170 Last administered on 01/06/17 03:21; Admin Dose 10 MG; Start 01/06/17 at 03:00 Vancomycin HCl (Vancocin) 250 ml @ 125 mls/hr Q48H IVPB Last administered on t 09:45; Admin Dose 125 MLS/HR; Start 01/06/17 at 10:00 RONNY VELZÁQUEZ Jan 06, 2017 10:29
[2017-01-06 12:27] LABS: ADD SCAN DIFF NO
[2017-01-06 12:30] LABS: BASOPHILS % 0.3 % (0.0-2.0); EOSINOPHILS # 0.1 10^3/ul (0.0-0.5); EOSINOPHILS % 0.7 % (0.0-7.0); HEMATOCRIT 20.2 % (37.0-47.0); HEMOGLOBIN 7.1 g/dl (12.0-16.0); LYMPHOCYTES # 1.4 10^3/ul (0.8-2.9); LYMPHOCYTES % 11.4 % (15.0-51.0); MEAN CORPUSCULAR HEMOGLOBIN 30.5 pg (29.0-33.0); MEAN CORPUSCULAR HGB CONC 35.1 g/dl (32.0-37.0); MEAN CORPUSCULAR VOLUME 86.7 fl (82.0-101.0); MEAN PLATELET VOLUME 10.3 fl (7.4-10.4); MONOCYTE # 0.9 10^3/ul (0.3-0.9); MONOCYTES % 7.7 % (0.0-11.0); NEUTROPHIL # 9.4 10^3/ul (1.6-7.5); NEUTROPHILS % 77.9 % (39.0-77.0); NUCLEATED RED BLOOD CELLS% 8.7 /100WBC (0.0-0.0); PLATELET COUNT 147 10^3/UL (140-415); RED BLOOD COUNT 2.33 10^6/ul (4.20-5.40); RED CELL DISTRIBUTION WIDTH 15.3 % (11.5-14.5)
[2017-01-06 12:46] LABS: INR 1.17; PT RATIO 1.2
[2017-01-06 12:48] LABS: PARTIAL THROMBOPLASTIN TIME 31.2 Sec (25.0-35.0)
--- NOTE | 2017-01-06 16:54 | PN ---
DATE: 01/06/2017 SUBJECTIVE: No acute changes. The patient remains intubated and sedated, in no distress. No fever s. VITAL SIGNS: Pulse 115, respirations 14, blood pressure 108/64, saturation 97% on vent. LABORATORY DATA: WBC 12.2, H and H 7.6 and 22, platelets 146, neutrophils 77. BUN 37, creatinine3. 49. MICROBIOLOGY: Repeat cultures pending. INDWELLINGS: Endotracheal tube, G-tube, Lau catheter, A-line, and PICC line. ANTIMICROBIALS: The patient is on IV 1. Vancomycin. 2. Zosyn. PHYSICAL EXAMINATION: GENERAL: This is a well-developed, obese, middle-aged woman who is lying comfortably in bed. HEENT: Head atraumatic, normocephalic. Sclerae anicteric. Buccal mucosa dry. NECK: Supple. CHEST: Rise symmetrical. Breath sounds diminished to bases. HEART: S1, S2. ABDOMEN: Soft. Bowel tones present. EXTREMITIES: With trace edema. ASSESSMENT: 1. Severe sepsis with shock, possibly also hypovolemic. 2. Acute respiratory failure. 3. Severe bilateral pneumonia. 4. Acute anemia with bleeding, status post liver biopsy with massive subcapsular hepatic hematoma. 5. 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 6. Pelvic mass. PLAN: The patient is doing poorly now with multisystem organ failure. She is being [place] [facility]. We will continue her on broad spectrum antibiotics. Await for repeat cultures. Continue blood products p.r.n. Dictated By: NANCY HULL DRY CLEANER PRESSER for MAVIS HERRERA/DAR Conf#: [id number] DID#: [id number]
[2017-01-06 18:27] LABS: ADD SCAN DIFF NO
[2017-01-06 18:28] LABS: BASOPHILS % 0.3 % (0.0-2.0); EOSINOPHILS # 0.2 10^3/ul (0.0-0.5); EOSINOPHILS % 1.3 % (0.0-7.0); HEMATOCRIT 19.9 % (37.0-47.0); HEMOGLOBIN 7.1 g/dl (12.0-16.0); LYMPHOCYTES # 1.2 10^3/ul (0.8-2.9); LYMPHOCYTES % 10.3 % (15.0-51.0); MEAN CORPUSCULAR HEMOGLOBIN 31.4 pg (29.0-33.0); MEAN CORPUSCULAR HGB CONC 35.7 g/dl (32.0-37.0); MEAN CORPUSCULAR VOLUME 88.1 fl (82.0-101.0); MEAN PLATELET VOLUME 9.9 fl (7.4-10.4); MONOCYTE # 0.9 10^3/ul (0.3-0.9); MONOCYTES % 7.6 % (0.0-11.0); NEUTROPHIL # 9.3 10^3/ul (1.6-7.5); NEUTROPHILS % 78.6 % (39.0-77.0); NUCLEATED RED BLOOD CELLS% 8.3 /100WBC (0.0-0.0); PLATELET COUNT 146 10^3/UL (140-415); RED BLOOD COUNT 2.26 10^6/ul (4.20-5.40); RED CELL DISTRIBUTION WIDTH 15.6 % (11.5-14.5); WHITE BLOOD COUNT 11.9 10^3/ul (4.8-10.8)
[2017-01-06 18:50] LABS: INR 1.15; PROTIME 14.7 Sec (12.2-14.2); PT RATIO 1.1
[2017-01-06 18:53] LABS: PARTIAL THROMBOPLASTIN TIME 30.3 Sec (25.0-35.0)
--- NOTE | 2017-01-06 20:39 | PN ---
DATE: 01/06/2017 SUBJECTIVE: Patient remains intubated, but is somewhat awake. The patient has undergone and hepatic angiography with coil and Gelfoam embolization of hepatic renetta ry branches. There was active bleeding seen for a branch of the right hepatic artery. This was emb olized. OBJECTIVE: GENERAL: Patient is a well-developed, obese female who is intubated and on respirator. The patient does open her eyes. VITAL SIGNS: Temperature 98.9 axillary, pulse 102 and regular, respirations 18, blood pressure is 1 20/65, pulse oximetry is 97% on 40% oxygen. SKIN: No ecchymosis, no petechiae or rashes. HEENT: No mucosal lesions. No scleral icterus. There is an endotracheal tube in place. NECK: Supple, no jugular venous distention or thyroid enlargement. CHEST: Sinus tachycardia. No S3, S4 murmurs. Decreased breath sounds in both bases. ABDOMEN: Distended. Bowel sounds are decreased. EXTREMITIES: No clubbing or cyanosis. There is a PICC line in the left upper extremity and a long leg brace on the right lower extremity. White count 11,900 with an absolute neutrophil count of 9300, hemoglobin 7.1, hematocrit 19.[address] atelet count 146,000. Sodium 148, potassium 3.9, BUN 37, creatinine 3.49, AST 742, ALT 246, alkalin e phosphatase 99. PLAN: As noted by Dr. Toscano there are 2 monoclonal free light chains detected, one free kappa and one free lambda. Quantitative immunoglobulins, however, are normal. The pathology does demonstrate some pathology does demonstrate the mild lymphoplasma 6L infiltrate. There are IgG positive plasma cells noted with some positive for IgG4. This suggests the possibili ty of an IgG4 related disease. ASSESSMENT: 1. Subcapsular hepatic hematoma probably related to injury due to previous liver biopsy. 2. Lymphoplasmacytic infiltrate of liver. Actual diagnosis unknown. IgG4 related disease is under consideration. DISCUSSION: Waiting results of review by pathologic consultation from [facility]. Will obtain IgG subclasses. The patient does not have lymphadenopathy. She has not actually had a pancreatitis suggest an autoi mmune hepatitis or even a sclerosing cholangitis which are the most frequent diseases associated wit h the IgG4 associated diseases. Quantitative free serum light chains have been requested. A light chain disease is not usually asso ciated with the IgG4 related diseases. Dictated By: ECTOR GHOSH MD, SR/DAR Conf#: [id number] DID#: [id number]
--- NOTE | 2017-01-06 21:02 | PN ---
Date/Time of Note Date/Time of Note DATE: 01/06/17 TIME: 20:50 Assessment/Plan VTE Prophylaxis VTE Prophylaxis Intervention: SCD's Lines/Catheters IV Catheter Type (from Nrs): arterial sheath Urinary Cath still in place: Yes Reason Cath still needed: urinary retention Assessment/Plan Chief Complaint/Hosp Course A- hepatic/inflammatory issues etiology pending Problems: Assessment/Plan A- hepatic/inflammatory issues etiology pending P- clearly not a surgical candidate due to medical issues and second opinion pending on path; with await further communication with IM / MedOnc Subjective 24 Hr Interval Summary Free Text/Dictation Sedated on vent but minimally responsive and mildly tender. Exam/Review of Systems Vital Signs Vitals Vital Signs Date Time Temp Pulse Resp B/P Pulse Ox O2 Delivery O2 Flow Rate FiO2 01/06/17 18:00 102 14 120/65 97 Mechanical Ventilator 01/06/17 17:14 40 01/06/17 16:00 98.9 01/04/17 20:06 6.0 Intake and Output 01/05/17 01/05/17 01/06/17 15:00 23:00 07:00 Intake Total 207.98 ml 716 ml 2115 ml Output Total 500 ml 890 ml Balance 207.98 ml 216 ml 1225 ml Exam Resp- congestion CVS- nsr Abd- some distension NT Ext - generalized edema Results Result Diagram: 01/06/17 1818 01/06/17 0500 Results 24 hrs Laboratory Tests Test 01/06/17 00:30 01/06/17 05:00 01/06/17 05:05 01/06/17 07:00 Hemoglobin 5.5 #*L 7.6 #L Hematocrit 15.8 L 22.0 #L Lactic Acid Level 1.0 1.1 White Blood Count 12.2 #H Red Blood Count 2.53 #L Mean Corpuscular Volume 87.0 Mean Corpuscular Hemoglobin 30.0 Mean Corpuscular Hemoglobin Concent 34.5 Red Cell Distribution Width 14.7 H Platelet Count 146 # Mean Platelet Volume 11.1 H Neutrophils % 77.0 Lymphocytes % 13.1 L Monocytes % 7.3 Eosinophils % 0.3 Basophils % 0.3 Nucleated Red Blood Cells % 7.4 H Neutrophils # 9.4 H Lymphocytes # 1.6 Monocytes # 0.9 Eosinophils # 0.0 Basophils # 0.0 Nucleated Red Blood Cells # 0.9 H Differential Comment AUTO w/SCAN Prothrombin Time 15.5 #H Prothrombin Time Ratio 1.2 INR International Normalized Ratio 1.22 Activated Partial Thromboplast Time 32.0 Sodium Level 138 Potassium Level 3.9 Chloride Level 100 Carbon Dioxide Level 27 Anion Gap 15 Blood Urea Nitrogen 37 H Creatinine 3.49 H Glucose Level 83 Calcium Level 7.8 L Phosphorus Level 6.9 H Magnesium Level 1.9 Total Bilirubin 0.7 Direct Bilirubin 0.00 Indirect Bilirubin 0.7 Aspartate Amino Transf (AST/SGOT) 742 H Alanine Aminotransferase (ALT/SGPT) 246 H Alkaline Phosphatase 99 Total Protein 6.1 # Albumin 3.7 # Random Vancomycin Level 11.5 Lab Scanned Report BLOOD TRANSFUSION Blood Gas Specimen Source Blood arterial Arterial Blood Date Drawn 01/06/2017 7:40:44 AM Arterial Blood pH (Temp corrected) 7.450 Arterial Blood pCO2 (Temp correct) 35.8 Arterial Blood pO2 (Temp corrected) 83.3 Arterial Blood HCO3 24.3 Arterial Blood Base Excess 0.4 Arterial Blood Oxygen Saturation 95.3 Westley Test N/A Arterial Blood Gas Puncture Site A-Line Arterial Blood Carboxyhemoglobin 0.3 Arterial Blood Methemoglobin 0.6 Blood Gas A-a O2 Differential 232.9 H Oxyhemoglobin Percent 94.4 Total Hemoglobin 8.0 L Blood Gas Temperature 37.0 Blood Gas Respiration Rate 14.0 Blood Gas Actual Respiration Rate 18 Blood Gas Modality VENT - AC FiO2 50.0 Blood Gas Tidal Volume 500.0 Blood Gas Low PEEP Setting 0 Blood Gas Notified Whom JLD Blood Gas Notified Time 01/06/2017 7:56:41 AM Test 01/06/17 12:21 01/06/17 18:18 White Blood Count 12.0 H 11.9 H Red Blood Count 2.33 L 2.26 L Hemoglobin 7.1 L 7.1 L Hematocrit 20.2 L 19.9 L Mean Corpuscular Volume 86.7 88.1 Mean Corpuscular Hemoglobin 30.5 31.4 Mean Corpuscular Hemoglobin Concent 35.1 35.7 Red Cell Distribution Width 15.3 H 15.6 H Platelet Count 147 146 Mean Platelet Volume 10.3 9.9 Neutrophils % 77.9 H 78.6 H Lymphocytes % 11.4 L 10.3 L Monocytes % 7.7 7.6 Eosinophils % 0.7 1.3 Basophils % 0.3 0.3 Nucleated Red Blood Cells % 8.7 H 8.3 H Neutrophils # 9.4 H 9.3 H Lymphocytes # 1.4 1.2 Monocytes # 0.9 0.9 Eosinophils # 0.1 0.2 Basophils # 0.0 0.0 Nucleated Red Blood Cells # 1.0 H 1.0 H Prothrombin Time 15.0 H 14.7 H Prothrombin Time Ratio 1.2 1.1 INR International Normalized Ratio 1.17 1.15 Activated Partial Thromboplast Time 31.2 30.3 Lactic Acid Level 0.9 0.7 Medications Medications Current Medications Ondansetron HCl (Zofran Inj) 4 mg Q6H PRN IV NAUSEA AND/OR VOMITING Last administered on 01/05/17 02:20; Admin Dose 4 MG; Start 12/20/16 at 07:30 Acetaminophen (Tylenol Tab) 650 mg Q6H PRN PO PAIN LEVEL 1-3 OR FEVER Last administered on 12/30/16 12:40; Admin Dose 650 MG; Start 12/20/16 at 07:30 Morphine Sulfate (morphine) 4 mg Q4H PRN IV SEVERE PAIN LEVEL 7-10 Last administered on 01/04/17 06:27; Admin Dose 4 MG; Start 12/20/16 at 07:30 Amlodipine Besylate (Norvasc) 5 mg DAILY PO Last administered on 01/03/17 09: 01; Admin Dose 5 MG; Start 12/21/16 at 09:00 Acetaminophen/ Hydrocodone Bitart ([place] (5/325)) 1 tab Q6H PRN PO PAIN LEVEL 7 -10 Last administered on 01/03/17 21:54; Admin Dose 1 TAB; Start 12/30/16 at 18 :00 Hydromorphone HCl (Dilaudid) 1 mg Q4H PRN IV SEVERE PAIN LEVEL 7-10 Last administered on 01/05/17 02:21; Admin Dose 1 MG; Start 01/02/17 at 17:45 Docusate Sodium (Colace) 100 mg BID PO Last administered on 01/03/17 21:54; Admin Dose 100 MG; Start 01/03/17 at 21:00 Senna (Senokot) 1 tab BID PO Last administered on 01/03/17 21:54; Admin Dose 1 TAB; Start 01/03/17 at 21:00 Polyethylene Glycol 8.5 gm 8.5 gm DAILY PO Last administered on 01/03/17 17:36 ; Admin Dose 8.5 GM; Start 01/03/17 at 15:30 Levetiracetam 100 ml @ 400 mls/hr Q12 IVPB Last administered on 01/06/17 09: 44; Admin Dose 400 MLS/HR; Start 01/04/17 at 11:00 Norepinephrine/ Dextrose (Levophed/D5W) 500 ml @ 1.87 mls/hr TITRATE IV Last administered on 01/05/17 09:13; Admin Dose 28.12 MLS/HR; Start 01/04/17 at 11: 00 Lorazepam (Ativan) 1 mg Q1H PRN IV Seizures; Start 01/04/17 at 19:30 IV Flush (NS 10 ml) 10 ml PRN PRN IV FLUSH LINE; Start 01/04/17 at 20:00 Morphine Sulfate (morphine) 2 mg Q4H PRN IV pain Last administered on 01:13; Admin Dose 2 MG; Start 01/05/17 at 01:30 Pantoprazole (Protonix Iv) 40 mg DAILY@06 IV Last administered on 01/06/17 05: 28; Admin Dose 40 MG; Start 01/05/17 at 06:30 Lorazepam 1 mg 1 mg Q4H PRN IV agitation Last administered on 01/05/17 12:10; Admin Dose 1 MG; Start 01/05/17 at 07:00 Sodium Chloride 1,000 ml @ 75 mls/hr [id number] IV Last administered on 17:47; Admin Dose 75 MLS/HR; Start 01/05/17 at 10:00 Fentanyl 100 ml @ 2.5 mls/hr TITRATE IV Last administered on 01/06/17 17:47; Admin Dose 10 MLS/HR; Start 01/05/17 at 12:25 Piperacillin Sod/ Tazobactam Sod (Zosyn 2.25gm/ 50ml (Pmx)) 50 ml @ 100 mls/hr Q8 IVPB Last administered on 01/06/17 14:21; Admin Dose 100 MLS/HR; Start at 22:00 Hydralazine HCl 10 mg 10 mg Q2H PRN IV SBP >170 Last administered on 01/06/17 03:21; Admin Dose 10 MG; Start 01/06/17 at 03:00 Vancomycin HCl (Vancocin) 250 ml @ 125 mls/hr Q48H IVPB Last administered on 09:45; Admin Dose 125 MLS/HR; Start 01/06/17 at 10:00 KAYLA NAPOLES MD Jan 06, 2017 21:00
[2017-01-06] MEDS ORDERED: VANCOMYCIN 1.25 GM in SOD CHLORIDE 0.9% 250 ML IVPB SCH (23:00)
[2017-01-07] VITALS (49 sets, daily range): BP systolic 112–171; BP diastolic 60–86; PULSE 90–123; RESP 14–29
[2017-01-07] MEDS: FENTAnyl (DRIP) 1000 mcg/100mL 100 ML IV SCH ×2 (03:50→21:54)
[2017-01-07] MEDS: PANTOPRAZOLE 40 MG INJ IV SCH (05:37)
[2017-01-07] MEDS: PIPER-TAZO 2.25 GM (PMX) 50 ML IVPB SCH ×3 (05:37→21:54)
[2017-01-07 06:08] LABS: ADD SCAN DIFF NO
[2017-01-07 06:23] LABS: BASOPHILS % 0.3 % (0.0-2.0); EOSINOPHILS # 0.2 10^3/ul (0.0-0.5); EOSINOPHILS % 1.9 % (0.0-7.0); HEMATOCRIT 20.6 % (37.0-47.0); HEMOGLOBIN 7.1 g/dl (12.0-16.0); LYMPHOCYTES % 8.7 % (15.0-51.0); MEAN CORPUSCULAR HGB CONC 34.5 g/dl (32.0-37.0); MEAN PLATELET VOLUME 11.2 fl (7.4-10.4); MONOCYTE # 0.8 10^3/ul (0.3-0.9); MONOCYTES % 6.7 % (0.0-11.0); NEUTROPHIL # 9.5 10^3/ul (1.6-7.5); NEUTROPHILS % 80.3 % (39.0-77.0); NUCLEATED RED BLOOD CELLS # 0.9 10^3/ul (0.0-0.0); NUCLEATED RED BLOOD CELLS% 7.9 /100WBC (0.0-0.0); PLATELET COUNT 171 10^3/UL (140-415); RED BLOOD COUNT 2.29 10^6/ul (4.20-5.40); RED CELL DISTRIBUTION WIDTH 16.2 % (11.5-14.5); WHITE BLOOD COUNT 11.8 10^3/ul (4.8-10.8)
[2017-01-07 07:00] LABS: ALBUMIN 3.4 g/dl (3.3-4.9); BILIRUBIN,INDIRECT 0.4 mg/dl (0-1.1); BILIRUBIN,TOTAL 0.4 mg/dl (0.2-1.3); TOTAL PROTEIN 5.8 g/dl (6.1-8.1)
[2017-01-07 07:15] LABS: CALCIUM 8.6 mg/dl (8.4-10.2); CREATININE 2.42 mg/dl (0.44-1.00); MAGNESIUM 2.1 mg/dl (1.7-2.5); PHOSPHORUS 5.6 mg/dl (2.5-4.9); POTASSIUM 3.9 mmol/L (3.5-5.1)
[2017-01-07 07:19] LABS: INR 1.06; PROTIME 13.8 Sec (12.2-14.2); PT RATIO 1.1
[2017-01-07 07:20] LABS: PARTIAL THROMBOPLASTIN TIME 32.3 Sec (25.0-35.0)
[2017-01-07 07:47] LABS: AADO2 Arterial 153.1 mmHg (7.0-24.0); Arterial Base Excess 0.2 mmol/L (-3.0-3); Arterial COHb 0.3 % (0.0-3.0); Arterial Fraction of Oxyhgb 95.3 % (93.0-99.0); Arterial HCO3 24.1 mmol/L (22.0-26.0); Arterial MetHb 0.6 % (0.0-1.5); Arterial Total Hemglobin 7.5 g/dl (12.0-18.0); MODE VENT - AC
[2017-01-07] MEDS: POLYETHYLENE GLYCOL 17 GM PACKET PO SCH (08:00)
[2017-01-07] MEDS: DOCUSATE SODIUM 100 MG CAP PO SCH ×2 (08:00→20:52)
[2017-01-07] MEDS: AMLODIPINE 5 MG TAB PO SCH (08:01)
[2017-01-07] MEDS: SENNA TAB PO SCH ×2 (08:01→20:52)
[2017-01-07] MEDS: LEVETIRACETAM 1000 MG (PMX) 100 ML IVPB SCH ×2 (08:25→20:46)
--- NOTE | 2017-01-07 08:34 | RADRPT ---
PROCEDURE: Chest 1 views. CLINICAL INDICATION: Shortness of breath TECHNIQUE: AP views of the chest was obtained. COMPARISON: Yesterday FINDINGS: The heart is large. Endotracheal tube is stable. Left-sided PICC line is unchanged. The lungs are hypoinflated. Central pulmonary vascular congestion and interstitial prominence in both lungs is st able. Right basilar atelectasis versus infiltrates, possibly combined small pleural effusion are unc hanged. Atelectasis versus minimal infiltrates are noted in the retrocardiac left lower lobe. [place] us structures are unchanged. IMPRESSION: Cardiomegaly . Hypoinflated lungs. Stable central pulmonary vascular congestion and interstitial prominence in both lungs. Stable right basilar atelectasis versus mild infiltrates, possibly combined with small pleural effus ion. Stable scattered atelectasis versus mild infiltrates in the retrocardiac left lower lobe. RPTAT: AA .Willi Johns MD, Date Time Electronically viewed and signed by .Willi Johns MD, on 01/07/2017 08:33 .P/
[2017-01-07] MEDS: SOD CHLORIDE 0.45% 1,000 ML IV SCH (10:20)
--- NOTE | 2017-01-07 10:23 | CONS ---
Date/Time of Note Date/Time of Note DATE: 01/07/17 TIME: 10:15 Assessment/Plan Assessment/Plan Additional Assessment/Plan Ventilator setting; AC of 14, tidal volume 500, PEEP of 5, 30% FiO2. Patient currently off fentanyl. Chest x-ray was reviewed from today which is showing right lower lobe infiltrative changes/atelectasis. Lung volumes are small. Endotracheal tube is at an adequate level. Assessment recommendations; 1. Patient admitted for abdominal pain discovered to have multiple hepatic lesions which were thought to be hepatic abscesses with hematogenous spread to the lungs causing bilateral pneumonia. Patient underwent liver biopsy which has been inconclusive. Patient also developed portal vein thrombosis ,while started on anti-coagulation then developed massive hepatic subcapsular hematoma requiring multiple packed RBC transfusion then leading to respiratory failure requiring intubation. Patient's condition however over the last 36 hours has improved significantly. No further drop in hematocrit noted. Patient has not required any further blood transfusion over the last 24 hours. 2. Improving renal function. 3. Bilateral pneumonia. Continue current treatment Continue current supportive care. Patient currently cannot be weaned off from ventilator. Fentanyl at a lower dose and will be started for sedation and pain control. Consultation Date/Type/Reason Admit Date/Time Dec 19, 2016 at 21:34 Initial Consult Date 12/20/16 Type of Consultation: Pulmonary/critical care Referring Provider: KAHLIL MARTEL 24 HR Interval Summary Free Text/Dictation Patient condition remains critical. Still requiring full ventilator support. However she is completely awake and alert. Complains of mild shortness of breath. Also complains of mild right upper quadrant pain. General exam; middle-aged woman, orally intubated, awake and alert. Currently in no distress. Exam/Review of Systems Vital Signs Vitals Vital Signs Date Time Temp Pulse Resp B/P Pulse Ox O2 Delivery O2 Flow Rate FiO2 01/07/17 09:49 107 27 100 40 01/07/17 09:00 143/72 Mechanical Ventilator 01/07/17 08:00 99.1 01/04/17 20:06 6.0 Intake and Output 01/06/17 01/06/17 01/07/17 15:00 23:00 07:00 Intake Total 1470 ml 730 ml 595 ml Output Total 710 ml 1390 ml 535 ml Balance 760 ml -660 ml 60 ml Exam HEENT examined; supple neck, no JVD. No lymphadenopathy. Midline trachea. No thyromegaly. Orally intubated. Patient has fair dentition. Pupils are small bilaterally. Chest examined; diminished but clear vessel. S1-S2 audible, no murmurs. Regular rhythm. Abdomen examination; soft, there is mild right upper quadrant tenderness. Bowel sounds audible. Extremity exam; no peripheral edema. Pulses 1+ bilaterally. [employer] examination; patient awake alert and follows commands. Moves all 4 extremities on command. Results Result Diagram: 01/07/17 0450 01/07/17 0450 Results 24 hrs Laboratory Tests Test 01/06/17 12:21 01/06/17 18:18 01/07/17 04:50 01/07/17 05:02 White Blood Count 12.0 H 11.9 H 11.8 H Red Blood Count 2.33 L 2.26 L 2.29 L Hemoglobin 7.1 L 7.1 L 7.1 L Hematocrit 20.2 L 19.9 L 20.6 L Mean Corpuscular Volume 86.7 88.1 90.0 Mean Corpuscular Hemoglobin 30.5 31.4 31.0 Mean Corpuscular Hemoglobin Concent 35.1 35.7 34.5 Red Cell Distribution Width 15.3 H 15.6 H 16.2 H Platelet Count 147 146 171 Mean Platelet Volume 10.3 9.9 11.2 H Neutrophils % 77.9 H 78.6 H 80.3 H Lymphocytes % 11.4 L 10.3 L 8.7 L Monocytes % 7.7 7.6 6.7 Eosinophils % 0.7 1.3 1.9 Basophils % 0.3 0.3 0.3 Nucleated Red Blood Cells % 8.7 H 8.3 H 7.9 H Neutrophils # 9.4 H 9.3 H 9.5 H Lymphocytes # 1.4 1.2 1.0 Monocytes # 0.9 0.9 0.8 Eosinophils # 0.1 0.2 0.2 Basophils # 0.0 0.0 0.0 Nucleated Red Blood Cells # 1.0 H 1.0 H 0.9 H Prothrombin Time 15.0 H 14.7 H 13.8 Prothrombin Time Ratio 1.2 1.1 1.1 INR International Normalized Ratio 1.17 1.15 1.06 Activated Partial Thromboplast Time 31.2 30.3 32.3 Lactic Acid Level 0.9 0.7 Sodium Level 142 Potassium Level 3.9 Chloride Level 105 Carbon Dioxide Level 23 Anion Gap 18 H Blood Urea Nitrogen 35 H Creatinine 2.42 #H Glucose Level 72 Calcium Level 8.6 Phosphorus Level 5.6 H Magnesium Level 2.1 Total Bilirubin 0.4 Direct Bilirubin 0.00 Indirect Bilirubin 0.4 Aspartate Amino Transf (AST/SGOT) 470 H Alanine Aminotransferase (ALT/SGPT) 222 H Alkaline Phosphatase 141 H Total Protein 5.8 L Albumin 3.4 Lab Scanned Report BLOOD TRANSFUSION Test 01/07/17 07:00 Blood Gas Specimen Source Blood arterial Arterial Blood Date Drawn 01/07/2017 7:30:04 AM Arterial Blood pH (Temp corrected) 7.452 H Arterial Blood pCO2 (Temp correct) 35.3 Arterial Blood pO2 (Temp corrected) 91.5 Arterial Blood HCO3 24.1 Arterial Blood Base Excess 0.2 Arterial Blood Oxygen Saturation 96.2 Westley Test N/A Arterial Blood Gas Puncture Site A-Line Arterial Blood Carboxyhemoglobin 0.3 Arterial Blood Methemoglobin 0.6 Blood Gas A-a O2 Differential 153.1 H Oxyhemoglobin Percent 95.3 Total Hemoglobin 7.5 L Blood Gas Temperature 37.0 Blood Gas Respiration Rate 14.0 Blood Gas Actual Respiration Rate 28 Blood Gas Modality VENT - AC FiO2 40.0 Blood Gas Tidal Volume 500.0 Blood Gas Low PEEP Setting 5.0 Blood Gas Notified Whom JLD Blood Gas Notified Time 01/07/2017 7:47:07 AM Medications Medications Current Medications Ondansetron HCl (Zofran Inj) 4 mg Q6H PRN IV NAUSEA AND/OR VOMITING Last administered on 01/05/17 02:20; Admin Dose 4 MG; Start 12/20/16 at 07:30 Acetaminophen (Tylenol Tab) 650 mg Q6H PRN PO PAIN LEVEL 1-3 OR FEVER Last administered on 12/30/16 12:40; Admin Dose 650 MG; Start 12/20/16 at 07:30 Morphine Sulfate (morphine) 4 mg Q4H PRN IV SEVERE PAIN LEVEL 7-10 Last administered on 01/04/17 06:27; Admin Dose 4 MG; Start 12/20/16 at 07:30 Amlodipine Besylate (Norvasc) 5 mg DAILY PO Last administered on 01/03/17 09: 01; Admin Dose 5 MG; Start 12/21/16 at 09:00 Acetaminophen/ Hydrocodone Bitart ([place] (5/325)) 1 tab Q6H PRN PO PAIN LEVEL 7 -10 Last administered on 01/03/17 21:54; Admin Dose 1 TAB; Start 12/30/16 at 18 :00 Hydromorphone HCl (Dilaudid) 1 mg Q4H PRN IV SEVERE PAIN LEVEL 7-10 Last administered on 01/05/17 02:21; Admin Dose 1 MG; Start 01/02/17 at 17:45 Docusate Sodium (Colace) 100 mg BID PO Last administered on 01/03/17 21:54; Admin Dose 100 MG; Start 01/03/17 at 21:00 Senna (Senokot) 1 tab BID PO Last administered on 01/03/17 21:54; Admin Dose 1 TAB; Start 01/03/17 at 21:00 Polyethylene Glycol 8.5 gm 8.5 gm DAILY PO Last administered on 01/03/17 17:36 ; Admin Dose 8.5 GM; Start 01/03/17 at 15:30 Levetiracetam 100 ml @ 400 mls/hr Q12 IVPB Last administered on 01/07/17 08: 25; Admin Dose 400 MLS/HR; Start 01/04/17 at 11:00 Norepinephrine/ Dextrose (Levophed/D5W) 500 ml @ 1.87 mls/hr TITRATE IV Last administered on 01/05/17 09:13; Admin Dose 28.12 MLS/HR; Start 01/04/17 at 11: 00 Lorazepam (Ativan) 1 mg Q1H PRN IV Seizures; Start 01/04/17 at 19:30 IV Flush (NS 10 ml) 10 ml PRN PRN IV FLUSH LINE; Start 01/04/17 at 20:00 Morphine Sulfate (morphine) 2 mg Q4H PRN IV pain Last administered on 01:13; Admin Dose 2 MG; Start 01/05/17 at 01:30 Pantoprazole (Protonix Iv) 40 mg DAILY@06 IV Last administered on 01/07/17 05: 37; Admin Dose 40 MG; Start 01/05/17 at 06:30 Lorazepam 1 mg 1 mg Q4H PRN IV agitation Last administered on 01/05/17 12:10; Admin Dose 1 MG; Start 01/05/17 at 07:00 Sodium Chloride 1,000 ml @ 75 mls/hr [id number] IV Last administered on 17:47; Admin Dose 75 MLS/HR; Start 01/05/17 at 10:00 Fentanyl 100 ml @ 2.5 mls/hr TITRATE IV Last administered on 01/07/17 03:50; Admin Dose 10 MLS/HR; Start 01/05/17 at 12:25 Piperacillin Sod/ Tazobactam Sod (Zosyn 2.25gm/ 50ml (Pmx)) 50 ml @ 100 mls/hr Q8 IVPB Last administered on 01/07/17 05:37; Admin Dose 100 MLS/HR; Start at 22:00 Hydralazine HCl 10 mg 10 mg Q2H PRN IV SBP >170 Last administered on 01/06/17 03:21; Admin Dose 10 MG; Start 01/06/17 at 03:00 Vancomycin HCl 250 ml @ 125 mls/hr Q48H IVPB Last administered on 01/06/17 09 :45; Admin Dose 125 MLS/HR; Start 01/06/17 at 10:00 Fluconazole/ Sodium Chloride (Diflucan 100 Mg/ NS (Pmx)) 50 ml @ 50 mls/hr Q24H IVPB ; Start 01/07/17 at 10:30; Status RONNY LARIOS Jan 07, 2017 10:23
--- NOTE | 2017-01-07 11:19 | PN ---
Date/Time of Note Date/Time of Note DATE: 01/07/17 TIME: 11:16 Assessment/Plan VTE Prophylaxis VTE Prophylaxis Intervention: SCD's VTE Contraindication Reason: bleeding Lines/Catheters IV Catheter Type (from Nrsg): arterial sheath Urinary Cath still in place: Yes Reason Cath still needed: other (indicate) Assessment/Plan Assessment/Plan 51-year-old female who had initially presented with abdominal pain and was found to have extensive portal vein and right hepatic vein thrombosis. Initial imaging was concerning for multiple liver lesions, pulmonary nodules, as well as a uterine mass. She was started on anticoagulation for her thrombosis, while she underwent further workup for her right-sided liver masses to rule out a metastatic process. She needed an MRI with gadolinium contrast, however she developed acute renal insufficiency from contrast versus vancomycin, and we had to wait for renal function to normalize before she could get the MRI. She got the MRI and subsequently underwent a liver biopsy. Pathology showed concern for lymphoplasmacytic involvement, and a second opinion has been sent to [facility] and is still pending. However in the interim, patient has decompensated; initially complaining of her right upper quadrant pain after the biopsy , was found to have a capsular hematoma thought to be from the location of biopsy with moderate blood seen throughout the abdomen and pelvis. She was also found to have severe coagulopathy concerning for DIC. She is at this time being managed in the ICU for the followin. Severe systemic shock likely hypovolemic from acute intra-abdominal hemorrhage / subcapsular hepatic hematoma causing severe coagulopathy: improved / off pressors 2. Ventilator dependent respiratory failure secondary to #3 3. Acute encephalopathy secondary to #4: improving 4. Recurrence of acute kidney injury secondary to #1: improving 5. Concern for metastatic disease with hepatic masses as well as uterine mass 6. Hypertension: fluctuating control 7. Diffuse venous thrombosis to include hepatic, portal, and right upper extremity veins also suggestive of metastatic disease 8. Status post alpha hemolytic strep bacteremia 9. Solitary seizure episode likely secondary to #1 10. Acute transaminitis and coagulopathy secondary to subcapsular hematoma: Improving Plan: * Continue ICU monitoring care and aggressive mgt * Will start NG tube feedings if okay with pulmonary * Serial labs and replacement of blood prod FFP / Vit K / PRBC / Platelets as indicated / appreciate hematology input and help * Monitor renal and hepatic function / IVF Is normal saline at 75 cc an hour * Continue Vent support and begin weaning when more stable / pulm managing * Per report patient is status post hepatic artery ligation versus embolization and hence is high risk for hepatic failure as she already had a hepatic vein thrombosis. Closely monitor. * Patient is also on Keppra for single seizure episode * Follow-up final pathology results from [facility] * Regarding uterine lesion, patient is going to total hysterectomy and possible salpingo-oophorectomy with mass excision and biopsy when stable Prophylaxis: SCDs/IV PPI Prognosis: Guarded CC time >30mins Subjective 24 Hr Interval Summary Free Text/Dictation Patient seen and examined. remains intubated and comfortably sedated Exam/Review of Systems Vital Signs Vitals Vital Signs Date Time Temp Pulse Resp B/P Pulse Ox O2 Delivery O2 Flow Rate FiO2 01/07/17 09:49 107 27 100 40 01/07/17 09:00 143/72 Mechanical Ventilator 01/07/17 08:00 99.1 01/04/17 20:06 6.0 Intake and Output 01/06/17 01/06/17 01/07/17 15:00 23:00 07:00 Intake Total 1470 ml 730 ml 595 ml Output Total 710 ml 1390 ml 535 ml Balance 760 ml -660 ml 60 ml Exam GENERAL: Arousable, comfortable on vent HEENT: HUMBERTO, Intubated, LUNGS: diffusely diminished and coarse BS HEART: S1, S2. No murmur, gallops or rubs. Tachycardic ABDOMEN: Soft, full, Normoactive bowel sounds. GENITOURINARY: Normal female external genitalia, Lau to bedside drainage EXTREMITIES: No edema NEUROLOGIC: Moves all 4 extremities, currently requiring restraints SKIN: Otherwise, unremarkable. Results Result Diagram: 01/07/17 0450 01/07/17 0450 Results 24 hrs Laboratory Tests Test 01/06/17 12:21 01/06/17 18:18 01/07/17 04:50 01/07/17 05:02 White Blood Count 12.0 H 11.9 H 11.8 H Red Blood Count 2.33 L 2.26 L 2.29 L Hemoglobin 7.1 L 7.1 L 7.1 L Hematocrit 20.2 L 19.9 L 20.6 L Mean Corpuscular Volume 86.7 88.1 90.0 Mean Corpuscular Hemoglobin 30.5 31.4 31.0 Mean Corpuscular Hemoglobin Concent 35.1 35.7 34.5 Red Cell Distribution Width 15.3 H 15.6 H 16.2 H Platelet Count 147 146 171 Mean Platelet Volume 10.3 9.9 11.2 H Neutrophils % 77.9 H 78.6 H 80.3 H Lymphocytes % 11.4 L 10.3 L 8.7 L Monocytes % 7.7 7.6 6.7 Eosinophils % 0.7 1.3 1.9 Basophils % 0.3 0.3 0.3 Nucleated Red Blood Cells % 8.7 H 8.3 H 7.9 H Neutrophils # 9.4 H 9.3 H 9.5 H Lymphocytes # 1.4 1.2 1.0 Monocytes # 0.9 0.9 0.8 Eosinophils # 0.1 0.2 0.2 Basophils # 0.0 0.0 0.0 Nucleated Red Blood Cells # 1.0 H 1.0 H 0.9 H Prothrombin Time 15.0 H 14.7 H 13.8 Prothrombin Time Ratio 1.2 1.1 1.1 INR International Normalized Ratio 1.17 1.15 1.06 Activated Partial Thromboplast Time 31.2 30.3 32.3 Lactic Acid Level 0.9 0.7 Sodium Level 142 Potassium Level 3.9 Chloride Level 105 Carbon Dioxide Level 23 Anion Gap 18 H Blood Urea Nitrogen 35 H Creatinine 2.42 #H Glucose Level 72 Calcium Level 8.6 Phosphorus Level 5.6 H Magnesium Level 2.1 Total Bilirubin 0.4 Direct Bilirubin 0.00 Indirect Bilirubin 0.4 Aspartate Amino Transf (AST/SGOT) 470 H Alanine Aminotransferase (ALT/SGPT) 222 H Alkaline Phosphatase 141 H Total Protein 5.8 L Albumin 3.4 Lab Scanned Report BLOOD TRANSFUSION Test 01/07/17 07:00 Blood Gas Specimen Source Blood arterial Arterial Blood Date Drawn 01/07/2017 7:30:04 AM Arterial Blood pH (Temp corrected) 7.452 H Arterial Blood pCO2 (Temp correct) 35.3 Arterial Blood pO2 (Temp corrected) 91.5 Arterial Blood HCO3 24.1 Arterial Blood Base Excess 0.2 Arterial Blood Oxygen Saturation 96.2 Westley Test N/A Arterial Blood Gas Puncture Site A-Line Arterial Blood Carboxyhemoglobin 0.3 Arterial Blood Methemoglobin 0.6 Blood Gas A-a O2 Differential 153.1 H Oxyhemoglobin Percent 95.3 Total Hemoglobin 7.5 L Blood Gas Temperature 37.0 Blood Gas Respiration Rate 14.0 Blood Gas Actual Respiration Rate 28 Blood Gas Modality VENT - AC FiO2 40.0 Blood Gas Tidal Volume 500.0 Blood Gas Low PEEP Setting 5.0 Blood Gas Notified Whom JLD Blood Gas Notified Time 01/07/2017 7:47:07 AM Medications Medications Current Medications Ondansetron HCl (Zofran Inj) 4 mg Q6H PRN IV NAUSEA AND/OR VOMITING Last administered on 01/05/17 02:20; Admin Dose 4 MG; Start 12/20/16 at 07:30 Acetaminophen (Tylenol Tab) 650 mg Q6H PRN PO PAIN LEVEL 1-3 OR FEVER Last administered on 12/30/16 12:40; Admin Dose 650 MG; Start 12/20/16 at 07:30 Morphine Sulfate (morphine) 4 mg Q4H PRN IV SEVERE PAIN LEVEL 7-10 Last administered on 01/04/17 06:27; Admin Dose 4 MG; Start 12/20/16 at 07:30 Amlodipine Besylate (Norvasc) 5 mg DAILY PO Last administered on 01/03/17 09: 01; Admin Dose 5 MG; Start 12/21/16 at 09:00 Acetaminophen/ Hydrocodone Bitart ([place] (5/325)) 1 tab Q6H PRN PO PAIN LEVEL 7 -10 Last administered on 01/03/17 21:54; Admin Dose 1 TAB; Start 12/30/16 at 18 :00 Hydromorphone HCl (Dilaudid) 1 mg Q4H PRN IV SEVERE PAIN LEVEL 7-10 Last administered on 01/05/17 02:21; Admin Dose 1 MG; Start 01/02/17 at 17:45 Docusate Sodium (Colace) 100 mg BID PO Last administered on 01/03/17 21:54; Admin Dose 100 MG; Start 01/03/17 at 21:00 Senna (Senokot) 1 tab BID PO Last administered on 01/03/17 21:54; Admin Dose 1 TAB; Start 01/03/17 at 21:00 Polyethylene Glycol 8.5 gm 8.5 gm DAILY PO Last administered on 01/03/17 17:36 ; Admin Dose 8.5 GM; Start 01/03/17 at 15:30 Levetiracetam 100 ml @ 400 mls/hr Q12 IVPB Last administered on 01/07/17 08: 25; Admin Dose 400 MLS/HR; Start 01/04/17 at 11:00 Norepinephrine/ Dextrose (Levophed/D5W) 500 ml @ 1.87 mls/hr TITRATE IV Last administered on 01/05/17 09:13; Admin Dose 28.12 MLS/HR; Start 01/04/17 at 11: 00 Lorazepam (Ativan) 1 mg Q1H PRN IV Seizures; Start 01/04/17 at 19:30 IV Flush (NS 10 ml) 10 ml PRN PRN IV FLUSH LINE; Start 01/04/17 at 20:00 Morphine Sulfate (morphine) 2 mg Q4H PRN IV pain Last administered on 01:13; Admin Dose 2 MG; Start 01/05/17 at 01:30 Pantoprazole (Protonix Iv) 40 mg DAILY@06 IV Last administered on 01/07/17 05: 37; Admin Dose 40 MG; Start 01/05/17 at 06:30 Lorazepam 1 mg 1 mg Q4H PRN IV agitation Last administered on 01/05/17 12:10; Admin Dose 1 MG; Start 01/05/17 at 07:00 Sodium Chloride 1,000 ml @ 75 mls/hr [id number] IV Last administered on 10:20; Admin Dose 75 MLS/HR; Start 01/05/17 at 10:00 Fentanyl 100 ml @ 2.5 mls/hr TITRATE IV Last administered on 01/07/17 03:50; Admin Dose 10 MLS/HR; Start 01/05/17 at 12:25 Piperacillin Sod/ Tazobactam Sod (Zosyn 2.25gm/ 50ml (Pmx)) 50 ml @ 100 mls/hr Q8 IVPB Last administered on 01/07/17 05:37; Admin Dose 100 MLS/HR; Start at 22:00 Hydralazine HCl 10 mg 10 mg Q2H PRN IV SBP >170 Last administered on 01/06/17 03:21; Admin Dose 10 MG; Start 01/06/17 at 03:00 Vancomycin HCl 250 ml @ 125 mls/hr Q48H IVPB Last administered on 01/06/17t 09 :45; Admin Dose 125 MLS/HR; Start 01/06/17 at 10:00 Fluconazole/ Sodium Chloride (Diflucan 100 Mg/ NS (Pmx)) 50 ml @ 50 mls/hr Q24H IVPB ; Start 01/07/17 at 12:00 KAHLIL MARTEL Jan 07, 2017 11:19
--- NOTE | 2017-01-07 12:56 | CONS ---
Date/Time of Note Date/Time of Note DATE: 01/07/17 TIME: 12:54 Assessment/Plan Assessment/Plan Chief Complaint/Hosp Course SUBJECTIVE: No acute changes. The patient remains intubated and sedated, in no distress. No fevers. MICROBIOLOGY: Sputum cx + C alb. INDWELLINGS: Endotracheal tube, G-tube, Lau catheter, A-line, and PICC line. ANTIMICROBIALS: The patient is on IV 1. Vancomycin. 2. Zosyn. 3. Diflucan PHYSICAL EXAMINATION: GENERAL: This is a well-developed, obese, middle-aged woman who is lying comfortably in bed. HEENT: Head atraumatic, normocephalic. Sclerae anicteric. Buccal mucosa dry. NECK: Supple. CHEST: Rise symmetrical. Breath sounds diminished to bases. HEART: S1, S2. ABDOMEN: Soft. Bowel tones present. EXTREMITIES: With trace edema. ASSESSMENT: 1. Severe sepsis with shock, possibly also hypovolemic==> off pressors. 2. Acute respiratory failure. 3. Severe bilateral pneumonia. 4. Acute anemia with bleeding, status post liver biopsy with massive subcapsular hepatic hematoma. 5. 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 6. Pelvic mass. PLAN: Stable off pressors, continue abx, pulmonary/oncology rec-s==> pending final work up DW staff Problems: Consultation Date/Type/Reason Admit Date/Time Dec 19, 2016 at 21:34 Initial Consult Date 12/20/16 Type of Consultation: ID Referring Provider: KAHLIL MARTEL Exam/Review of Systems Vital Signs Vitals Vital Signs Date Time Temp Pulse Resp B/P Pulse Ox O2 Delivery O2 Flow Rate FiO2 01/07/17 12:00 111 01/07/17 11:16 18 100 40 01/07/17 11:00 143/73 Mechanical Ventilator 01/07/17 08:00 99.1 01/04/17 20:06 6.0 Intake and Output 01/06/17 01/06/17 01/07/17 15:00 23:00 07:00 Intake Total 1470 ml 730 ml 595 ml Output Total 710 ml 1390 ml 535 ml Balance 760 ml -660 ml 60 ml Results Result Diagram: 01/07/17 0450 01/07/17 0450 Results 24 hrs Laboratory Tests Test 01/06/17 18:18 01/07/17 04:50 01/07/17 05:02 01/07/17 07:00 White Blood Count 11.9 H 11.8 H Red Blood Count 2.26 L 2.29 L Hemoglobin 7.1 L 7.1 L Hematocrit 19.9 L 20.6 L Mean Corpuscular Volume 88.1 90.0 Mean Corpuscular Hemoglobin 31.4 31.0 Mean Corpuscular Hemoglobin Concent 35.7 34.5 Red Cell Distribution Width 15.6 H 16.2 H Platelet Count 146 171 Mean Platelet Volume 9.9 11.2 H Neutrophils % 78.6 H 80.3 H Lymphocytes % 10.3 L 8.7 L Monocytes % 7.6 6.7 Eosinophils % 1.3 1.9 Basophils % 0.3 0.3 Nucleated Red Blood Cells % 8.3 H 7.9 H Neutrophils # 9.3 H 9.5 H Lymphocytes # 1.2 1.0 Monocytes # 0.9 0.8 Eosinophils # 0.2 0.2 Basophils # 0.0 0.0 Nucleated Red Blood Cells # 1.0 H 0.9 H Prothrombin Time 14.7 H 13.8 Prothrombin Time Ratio 1.1 1.1 INR International Normalized Ratio 1.15 1.06 Activated Partial Thromboplast Time 30.3 32.3 Lactic Acid Level 0.7 Sodium Level 142 Potassium Level 3.9 Chloride Level 105 Carbon Dioxide Level 23 Anion Gap 18 H Blood Urea Nitrogen 35 H Creatinine 2.42 #H Glucose Level 72 Calcium Level 8.6 Phosphorus Level 5.6 H Magnesium Level 2.1 Total Bilirubin 0.4 Direct Bilirubin 0.00 Indirect Bilirubin 0.4 Aspartate Amino Transf (AST/SGOT) 470 H Alanine Aminotransferase (ALT/SGPT) 222 H Alkaline Phosphatase 141 H Total Protein 5.8 L Albumin 3.4 Lab Scanned Report BLOOD TRANSFUSION Blood Gas Specimen Source Blood arterial Arterial Blood Date Drawn 01/07/2017 7:30:04 AM Arterial Blood pH (Temp corrected) 7.452 H Arterial Blood pCO2 (Temp correct) 35.3 Arterial Blood pO2 (Temp corrected) 91.5 Arterial Blood HCO3 24.1 Arterial Blood Base Excess 0.2 Arterial Blood Oxygen Saturation 96.2 Westley Test N/A Arterial Blood Gas Puncture Site A-Line Arterial Blood Carboxyhemoglobin 0.3 Arterial Blood Methemoglobin 0.6 Blood Gas A-a O2 Differential 153.1 H Oxyhemoglobin Percent 95.3 Total Hemoglobin 7.5 L Blood Gas Temperature 37.0 Blood Gas Respiration Rate 14.0 Blood Gas Actual Respiration Rate 28 Blood Gas Modality VENT - AC FiO2 40.0 Blood Gas Tidal Volume 500.0 Blood Gas Low PEEP Setting 5.0 Blood Gas Notified Whom JLD Blood Gas Notified Time 01/07/2017 7:47:07 AM Medications Medications Current Medications Ondansetron HCl (Zofran Inj) 4 mg Q6H PRN IV NAUSEA AND/OR VOMITING Last administered on 01/05/17 02:20; Admin Dose 4 MG; Start 12/20/16 at 07:30 Acetaminophen (Tylenol Tab) 650 mg Q6H PRN PO PAIN LEVEL 1-3 OR FEVER Last administered on 12/30/16 12:40; Admin Dose 650 MG; Start 12/20/16 at 07:30 Morphine Sulfate (morphine) 4 mg Q4H PRN IV SEVERE PAIN LEVEL 7-10 Last administered on 01/04/17 06:27; Admin Dose 4 MG; Start 12/20/16 at 07:30 Amlodipine Besylate (Norvasc) 5 mg DAILY PO Last administered on 01/03/17 09: 01; Admin Dose 5 MG; Start 12/21/16 at 09:00 Acetaminophen/ Hydrocodone Bitart ([place] (5/325)) 1 tab Q6H PRN PO PAIN LEVEL 7 -10 Last administered on 01/03/17 21:54; Admin Dose 1 TAB; Start 12/30/16 at 18 :00 Hydromorphone HCl (Dilaudid) 1 mg Q4H PRN IV SEVERE PAIN LEVEL 7-10 Last administered on 01/05/17 02:21; Admin Dose 1 MG; Start 01/02/17 at 17:45 Docusate Sodium (Colace) 100 mg BID PO Last administered on 01/03/17 21:54; Admin Dose 100 MG; Start 01/03/17 at 21:00 Senna (Senokot) 1 tab BID PO Last administered on 01/03/17 21:54; Admin Dose 1 TAB; Start 01/03/17 at 21:00 Polyethylene Glycol 8.5 gm 8.5 gm DAILY PO Last administered on 01/03/17 17:36 ; Admin Dose 8.5 GM; Start 01/03/17 at 15:30 Levetiracetam 100 ml @ 400 mls/hr Q12 IVPB Last administered on 01/07/17 08: 25; Admin Dose 400 MLS/HR; Start 01/04/17 at 11:00 Norepinephrine/ Dextrose (Levophed/D5W) 500 ml @ 1.87 mls/hr TITRATE IV Last administered on 01/05/17 09:13; Admin Dose 28.12 MLS/HR; Start 01/04/17 at 11: 00 Lorazepam (Ativan) 1 mg Q1H PRN IV Seizures; Start 01/04/17 at 19:30 IV Flush (NS 10 ml) 10 ml PRN PRN IV FLUSH LINE; Start 01/04/17 at 20:00 Morphine Sulfate (morphine) 2 mg Q4H PRN IV pain Last administered on 01:13; Admin Dose 2 MG; Start 01/05/17 at 01:30 Pantoprazole (Protonix Iv) 40 mg DAILY@06 IV Last administered on 01/07/17 05: 37; Admin Dose 40 MG; Start 01/05/17 at 06:30 Lorazepam 1 mg 1 mg Q4H PRN IV agitation Last administered on 01/05/17 12:10; Admin Dose 1 MG; Start 01/05/17 at 07:00 Sodium Chloride 1,000 ml @ 75 mls/hr [id number] IV Last administered on 10:20; Admin Dose 75 MLS/HR; Start 01/05/17 at 10:00 Fentanyl 100 ml @ 2.5 mls/hr TITRATE IV Last administered on 01/07/17 03:50; Admin Dose 10 MLS/HR; Start 01/05/17 at 12:25 Piperacillin Sod/ Tazobactam Sod (Zosyn 2.25gm/ 50ml (Pmx)) 50 ml @ 100 mls/hr Q8 IVPB Last administered on 01/07/17 05:37; Admin Dose 100 MLS/HR; Start at 22:00 Hydralazine HCl 10 mg 10 mg Q2H PRN IV SBP >170 Last administered on 01/06/17 03:21; Admin Dose 10 MG; Start 01/06/17 at 03:00 Vancomycin HCl 250 ml @ 125 mls/hr Q48H IVPB Last administered on 01/06/17t 09 :45; Admin Dose 125 MLS/HR; Start 01/06/17 at 10:00 Fluconazole/ Sodium Chloride (Diflucan 100 Mg/ NS (Pmx)) 50 ml @ 50 mls/hr Q24H IVPB ; Start 01/07/17 at 12:00 NANCY HULL NP Jan 07, 2017 12:56
[2017-01-07] MEDS: FLUCONAZOLE 100 MG/NS (PMX) 50 ML IVPB SCH (13:14)
--- NOTE | 2017-01-07 15:12 | PN ---
Date/Time of Note Date/Time of Note DATE: 01/07/17 TIME: 15:08 Assessment/Plan VTE Prophylaxis VTE Prophylaxis Intervention: anti-embolic stocking Lines/Catheters IV Catheter Type (from Nrs): A Line Urinary Cath still in place: Yes Reason Cath still needed: urinary retention Assessment/Plan Assessment/Plan 1. Nonoliguric acute kidney injury with previously normal baseline creatinine. Etiology secondary to acute tubular necrosis due to severe anemia, ischemic hypoperfusion, shock. Patient's renal function is improving. At this point, would continue current treatment plan, supportive care, renally dose all medications. No immediate need for renal replacement therapy at this time. 2. Anemia secondary to intra-abdominal bleed. The patient had a liver hematoma , capsular. The patient is status post multiple blood products. At this point , hemoglobin levels appear to be stabilizing. We will defer to surgical services and IR if further intervention is needed. 3. Mineral bone disease. Will continue to monitor calcium, phosphorus levels. No need for phosphate binders at this time. 4. Mixed acid base disorder. The patient has a respiratory alkalosis, metabolic acidosis and a metabolic alkalosis. Last ABG was reviewed. No need for bicarbonate drip. Will continue to observe. 5. Sepsis. The patient is status post shock, currently off pressor support. Continue current antibiotic regimen. Continue IV fluids. Will decrease rate. 6. Ventilator dependent respiratory failure. Vent settings have been reviewed. ABG has been reviewed. Continue to monitor. 7. Portal vein thrombosis. 8. Multiple liver lesions status post biopsy. Findings consistent with possible lymphoplasmacytic involvement will continue to monitor. Follow up with hematology. 9. Uterine mass. Followup with Gynecology/Oncology. Status post code arrest. Please note I spent over 45 minutes of critical care time with this patient. Subjective 24 Hr Interval Summary Free Text/Dictation The patient remains critically ill. The patient is currently off pressor support and noted to be normotensive to hypertensive. The patient's urinary output has improved. No other acute events noted. No hemoptysis, hematemesis or hematochezia. No other events noted. Exam/Review of Systems Vital Signs Vitals Vital Signs Date Time Temp Pulse Resp B/P Pulse Ox O2 Delivery O2 Flow Rate FiO2 01/07/17 14:30 110 15 141/75 97 01/07/17 14:00 Mechanical Ventilator 01/07/17 12:00 99.4 01/07/17 11:16 40 01/04/17 20:06 6.0 Intake and Output 01/06/17 01/06/17 01/07/17 15:00 23:00 07:00 Intake Total 1470 ml 730 ml 670 ml Output Total 710 ml 1390 ml 585 ml Balance 760 ml -660 ml 85 ml Exam HEENT: Head is normocephalic. Pupils are reactive to light. NECK: Supple. HEART: Regular rate. LUNGS: Show diminished breath sounds at base. ABDOMEN: Soft, nontender to palpation. No rebound or guarding. EXTREMITIES: Negative for clubbing, cyanosis, no edema. DERMATOLOGIC: No rashes. MUSCULOSKELETAL: No joint effusions. NEUROLOGIC: No change in exam. Results Result Diagram: 01/07/17 0450 01/07/17 0450 Results 24 hrs Laboratory Tests Test 01/06/17 18:18 01/07/17 04:50 01/07/17 05:02 01/07/17 07:00 White Blood Count 11.9 H 11.8 H Red Blood Count 2.26 L 2.29 L Hemoglobin 7.1 L 7.1 L Hematocrit 19.9 L 20.6 L Mean Corpuscular Volume 88.1 90.0 Mean Corpuscular Hemoglobin 31.4 31.0 Mean Corpuscular Hemoglobin Concent 35.7 34.5 Red Cell Distribution Width 15.6 H 16.2 H Platelet Count 146 171 Mean Platelet Volume 9.9 11.2 H Neutrophils % 78.6 H 80.3 H Lymphocytes % 10.3 L 8.7 L Monocytes % 7.6 6.7 Eosinophils % 1.3 1.9 Basophils % 0.3 0.3 Nucleated Red Blood Cells % 8.3 H 7.9 H Neutrophils # 9.3 H 9.5 H Lymphocytes # 1.2 1.0 Monocytes # 0.9 0.8 Eosinophils # 0.2 0.2 Basophils # 0.0 0.0 Nucleated Red Blood Cells # 1.0 H 0.9 H Prothrombin Time 14.7 H 13.8 Prothrombin Time Ratio 1.1 1.1 INR International Normalized Ratio 1.15 1.06 Activated Partial Thromboplast Time 30.3 32.3 Lactic Acid Level 0.7 Sodium Level 142 Potassium Level 3.9 Chloride Level 105 Carbon Dioxide Level 23 Anion Gap 18 H Blood Urea Nitrogen 35 H Creatinine 2.42 #H Glucose Level 72 Calcium Level 8.6 Phosphorus Level 5.6 H Magnesium Level 2.1 Total Bilirubin 0.4 Direct Bilirubin 0.00 Indirect Bilirubin 0.4 Aspartate Amino Transf (AST/SGOT) 470 H Alanine Aminotransferase (ALT/SGPT) 222 H Alkaline Phosphatase 141 H Total Protein 5.8 L Albumin 3.4 Lab Scanned Report BLOOD TRANSFUSION Blood Gas Specimen Source Blood arterial Arterial Blood Date Drawn 01/07/2017 7:30:04 AM Arterial Blood pH (Temp corrected) 7.452 H Arterial Blood pCO2 (Temp correct) 35.3 Arterial Blood pO2 (Temp corrected) 91.5 Arterial Blood HCO3 24.1 Arterial Blood Base Excess 0.2 Arterial Blood Oxygen Saturation 96.2 Westley Test N/A Arterial Blood Gas Puncture Site A-Line Arterial Blood Carboxyhemoglobin 0.3 Arterial Blood Methemoglobin 0.6 Blood Gas A-a O2 Differential 153.1 H Oxyhemoglobin Percent 95.3 Total Hemoglobin 7.5 L Blood Gas Temperature 37.0 Blood Gas Respiration Rate 14.0 Blood Gas Actual Respiration Rate 28 Blood Gas Modality VENT - AC FiO2 40.0 Blood Gas Tidal Volume 500.0 Blood Gas Low PEEP Setting 5.0 Blood Gas Notified Whom JLD Blood Gas Notified Time 01/07/2017 7:47:07 AM Medications Medications Current Medications Ondansetron HCl (Zofran Inj) 4 mg Q6H PRN IV NAUSEA AND/OR VOMITING Last administered on 01/05/17 02:20; Admin Dose 4 MG; Start 12/20/16 at 07:30 Acetaminophen (Tylenol Tab) 650 mg Q6H PRN PO PAIN LEVEL 1-3 OR FEVER Last administered on 12/30/16 12:40; Admin Dose 650 MG; Start 12/20/16 at 07:30 Morphine Sulfate (morphine) 4 mg Q4H PRN IV SEVERE PAIN LEVEL 7-10 Last administered on 01/04/17 06:27; Admin Dose 4 MG; Start 12/20/16 at 07:30 Amlodipine Besylate (Norvasc) 5 mg DAILY PO Last administered on 01/03/17 09: 01; Admin Dose 5 MG; Start 12/21/16 at 09:00 Acetaminophen/ Hydrocodone Bitart ([place] (5/325)) 1 tab Q6H PRN PO PAIN LEVEL 7 -10 Last administered on 01/03/17 21:54; Admin Dose 1 TAB; Start 12/30/16 at 18 :00 Hydromorphone HCl (Dilaudid) 1 mg Q4H PRN IV SEVERE PAIN LEVEL 7-10 Last administered on 01/05/17 02:21; Admin Dose 1 MG; Start 01/02/17 at 17:45 Docusate Sodium (Colace) 100 mg BID PO Last administered on 01/03/17 21:54; Admin Dose 100 MG; Start 01/03/17 at 21:00 Senna (Senokot) 1 tab BID PO Last administered on 01/03/17 21:54; Admin Dose 1 TAB; Start 01/03/17 at 21:00 Polyethylene Glycol 8.5 gm 8.5 gm DAILY PO Last administered on 01/03/17 17:36 ; Admin Dose 8.5 GM; Start 01/03/17 at 15:30 Levetiracetam 100 ml @ 400 mls/hr Q12 IVPB Last administered on 01/07/17 08: 25; Admin Dose 400 MLS/HR; Start 01/04/17 at 11:00 Norepinephrine/ Dextrose (Levophed/D5W) 500 ml @ 1.87 mls/hr TITRATE IV Last administered on 01/05/17 09:13; Admin Dose 28.12 MLS/HR; Start 01/04/17 at 11: 00 Lorazepam (Ativan) 1 mg Q1H PRN IV Seizures; Start 01/04/17 at 19:30 IV Flush (NS 10 ml) 10 ml PRN PRN IV FLUSH LINE; Start 01/04/17 at 20:00 Morphine Sulfate (morphine) 2 mg Q4H PRN IV pain Last administered on 01:13; Admin Dose 2 MG; Start 01/05/17 at 01:30 Pantoprazole (Protonix Iv) 40 mg DAILY@06 IV Last administered on 01/07/17 05: 37; Admin Dose 40 MG; Start 01/05/17 at 06:30 Lorazepam 1 mg 1 mg Q4H PRN IV agitation Last administered on 01/05/17 12:10; Admin Dose 1 MG; Start 01/05/17 at 07:00 Sodium Chloride 1,000 ml @ 75 mls/hr [id number] IV Last administered on 10:20; Admin Dose 75 MLS/HR; Start 01/05/17 at 10:00 Fentanyl 100 ml @ 2.5 mls/hr TITRATE IV Last administered on 01/07/17 03:50; Admin Dose 10 MLS/HR; Start 01/05/17 at 12:25 Piperacillin Sod/ Tazobactam Sod (Zosyn 2.25gm/ 50ml (Pmx)) 50 ml @ 100 mls/hr Q8 IVPB Last administered on 01/07/17 14:35; Admin Dose 100 MLS/HR; Start at 22:00 Hydralazine HCl 10 mg 10 mg Q2H PRN IV SBP >170 Last administered on 01/06/17 03:21; Admin Dose 10 MG; Start 01/06/17 at 03:00 Vancomycin HCl 250 ml @ 125 mls/hr Q48H IVPB Last administered on 01/06/17 09 :45; Admin Dose 125 MLS/HR; Start 01/06/17 at 10:00 Fluconazole/ Sodium Chloride (Diflucan 100 Mg/ NS (Pmx)) 50 ml @ 50 mls/hr Q24H IVPB Last administered on 01/07/17 13:14; Admin Dose 50 MLS/HR; Start at 12:00 MILLY DAIGLE DO Jan 07, 2017 15:12
--- NOTE | 2017-01-07 15:32 | PN ---
Date/Time of Note Date/Time of Note DATE: 01/07/17 TIME: 15:25 Assessment/Plan VTE Prophylaxis VTE Prophylaxis Intervention: contraindicated Lines/Catheters IV C[facility] Type [facility]from [facility] A Line Urinary Cath still in place: Yes Reason Cath still needed: urinary retention Assessment/Plan Assessment/Plan Assessment * Acute respiratory failure managed by pulmonary * Anemia acute CT scan Intraabdominal hemorrhage Very large mixed density acute subcapsular hematoma of the liver with moderate blood seen throughout the abdomen and pelvis. Right lower lobe atelectasis or infiltrate and small bilateral effusions. 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 Extensive intra and extrahepatic portal vein thrombosis. . Multiple ill-defined focal liver lesions in the right hepatic lobe. R/O infectious vs malignancy Post liver biopsy/pathology pending * Portal vein thrombosis * . Plan * monitor hemoglobin and hematocrit and transfuse 1 unit PRBC if HGB <7.5 ,2 units PRBC hemoglobin less than 7 * awaiting biopsy result * Continue present management * trend liver enzymes ,elevation of ast,alt could be attributed to subcapsular hematoma * case discussed with Dr Raphael * Further orders will depend on clinical course Subjective 24 Hr Interval Summary Free Text/Dictation * course reviewed with RN * Patient seen and examined * Patient orally intubated * awake * latest hemoglobin 7.1 * Elevated AST,ALT alkaline phosphatase Exam/Review of Systems Vital Signs Vitals Vital Signs Date Time Temp Pulse Resp B/P Pulse Ox O2 Delivery O2 Flow Rate FiO2 01/07/17 14:30 110 15 141/75 97 01/07/17 14:00 Mechanical Ventilator 01/07/17 12:00 99.4 01/07/17 11:16 40 01/04/17 20:06 6.0 Intake and Output 01/06/17 01/06/17 01/07/17 15:00 23:00 07:00 Intake Total 1470 ml 730 ml 670 ml Output Total 710 ml 1390 ml 585 ml Balance 760 ml -660 ml 85 ml Exam Constitutional: frail Head: normocephalic Eyes: nl sclera ENMT: intubated Neck: non-tender, supple Respiratory: diminished breath sounds, normal air movement Cardiovascular: nl pulses, regular rate and rhythm Gastrointestinal: bowel sounds, distended, soft, tender (diffuse), No rebound or guarding Musculoskeletal: nl extremities to inspection, nl gait and stance Extremities: normal pulses Neurological: nl speech, nl strength Skin: nl turgor, No rash or lesions Results Result Diagram: 01/07/17 0450 01/07/17 0450 Results 24 hrs Laboratory Tests Test 01/06/17 18:18 01/07/17 04:50 01/07/17 05:02 01/07/17 07:00 White Blood Count 11.9 H 11.8 H Red Blood Count 2.26 L 2.29 L Hemoglobin 7.1 L 7.1 L Hematocrit 19.9 L 20.6 L Mean Corpuscular Volume 88.1 90.0 Mean Corpuscular Hemoglobin 31.4 31.0 Mean Corpuscular Hemoglobin Concent 35.7 34.5 Red Cell Distribution Width 15.6 H 16.2 H Platelet Count 146 171 Mean Platelet Volume 9.9 11.2 H Neutrophils % 78.6 H 80.3 H Lymphocytes % 10.3 L 8.7 L Monocytes % 7.6 6.7 Eosinophils % 1.3 1.9 Basophils % 0.3 0.3 Nucleated Red Blood Cells % 8.3 H 7.9 H Neutrophils # 9.3 H 9.5 H Lymphocytes # 1.2 1.0 Monocytes # 0.9 0.8 Eosinophils # 0.2 0.2 Basophils # 0.0 0.0 Nucleated Red Blood Cells # 1.0 H 0.9 H Prothrombin Time 14.7 H 13.8 Prothrombin Time Ratio 1.1 1.1 INR International Normalized Ratio 1.15 1.06 Activated Partial Thromboplast Time 30.3 32.3 Lactic Acid Level 0.7 Sodium Level 142 Potassium Level 3.9 Chloride Level 105 Carbon Dioxide Level 23 Anion Gap 18 H Blood Urea Nitrogen 35 H Creatinine 2.42 #H Glucose Level 72 Calcium Level 8.6 Phosphorus Level 5.6 H Magnesium Level 2.1 Total Bilirubin 0.4 Direct Bilirubin 0.00 Indirect Bilirubin 0.4 Aspartate Amino Transf (AST/SGOT) 470 H Alanine Aminotransferase (ALT/SGPT) 222 H Alkaline Phosphatase 141 H Total Protein 5.8 L Albumin 3.4 Lab Scanned Report BLOOD TRANSFUSION Blood Gas Specimen Source Blood arterial Arterial Blood Date Drawn 01/07/2017 7:30:04 AM Arterial Blood pH (Temp corrected) 7.452 H Arterial Blood pCO2 (Temp correct) 35.3 Arterial Blood pO2 (Temp corrected) 91.5 Arterial Blood HCO3 24.1 Arterial Blood Base Excess 0.2 Arterial Blood Oxygen Saturation 96.2 Westley Test N/A Arterial Blood Gas Puncture Site A-Line Arterial Blood Carboxyhemoglobin 0.3 Arterial Blood Methemoglobin 0.6 Blood Gas A-a O2 Differential 153.1 H Oxyhemoglobin Percent 95.3 Total Hemoglobin 7.5 L Blood Gas Temperature 37.0 Blood Gas Respiration Rate 14.0 Blood Gas Actual Respiration Rate 28 Blood Gas Modality VENT - AC FiO2 40.0 Blood Gas Tidal Volume 500.0 Blood Gas Low PEEP Setting 5.0 Blood Gas Notified Whom JLD Blood Gas Notified Time 01/07/2017 7:47:07 AM Medications Medications Current Medications Ondansetron HCl (Zofran Inj) 4 mg Q6H PRN IV NAUSEA AND/OR VOMITING Last administered on 01/05/17 02:20; Admin Dose 4 MG; Start 12/20/16 at 07:30 Acetaminophen (Tylenol Tab) 650 mg Q6H PRN PO PAIN LEVEL 1-3 OR FEVER Last administered on 12/30/16 12:40; Admin Dose 650 MG; Start 12/20/16 at 07:30 Morphine Sulfate (morphine) 4 mg Q4H PRN IV SEVERE PAIN LEVEL 7-10 Last administered on 01/04/17 06:27; Admin Dose 4 MG; Start 12/20/16 at 07:30 Amlodipine Besylate (Norvasc) 5 mg DAILY PO Last administered on 01/03/17 09: 01; Admin Dose 5 MG; Start 12/21/16 at 09:00 Acetaminophen/ Hydrocodone Bitart ([place] (5/325)) 1 tab Q6H PRN PO PAIN LEVEL 7 -10 Last administered on 01/03/17 21:54; Admin Dose 1 TAB; Start 12/30/16 at 18 :00 Hydromorphone HCl (Dilaudid) 1 mg Q4H PRN IV SEVERE PAIN LEVEL 7-10 Last administered on 01/05/17 02:21; Admin Dose 1 MG; Start 01/02/17 at 17:45 Docusate Sodium (Colace) 100 mg BID PO Last administered on 01/03/17 21:54; Admin Dose 100 MG; Start 01/03/17 at 21:00 Senna (Senokot) 1 tab BID PO Last administered on 01/03/17 21:54; Admin Dose 1 TAB; Start 01/03/17 at 21:00 Polyethylene Glycol 8.5 gm 8.5 gm DAILY PO Last administered on 01/03/17 17:36 ; Admin Dose 8.5 GM; Start 01/03/17 at 15:30 Levetiracetam 100 ml @ 400 mls/hr Q12 IVPB Last administered on 01/07/17 08: 25; Admin Dose 400 MLS/HR; Start 01/04/17 at 11:00 Norepinephrine/ Dextrose (Levophed/D5W) 500 ml @ 1.87 mls/hr TITRATE IV Last administered on 01/05/17 09:13; Admin Dose 28.12 MLS/HR; Start 01/04/17 at 11: 00 Lorazepam (Ativan) 1 mg Q1H PRN IV Seizures; Start 01/04/17 at 19:30 IV Flush (NS 10 ml) 10 ml PRN PRN IV FLUSH LINE; Start 01/04/17 at 20:00 Morphine Sulfate (morphine) 2 mg Q4H PRN IV pain Last administered on 01:13; Admin Dose 2 MG; Start 01/05/17 at 01:30 Pantoprazole (Protonix Iv) 40 mg DAILY@06 IV Last administered on 01/07/17 05: 37; Admin Dose 40 MG; Start 01/05/17 at 06:30 Lorazepam 1 mg 1 mg Q4H PRN IV agitation Last administered on 01/05/17 12:10; Admin Dose 1 MG; Start 01/05/17 at 07:00 Sodium Chloride 1,000 ml @ 75 mls/hr [id number] IV Last administered on 10:20; Admin Dose 75 MLS/HR; Start 01/05/17 at 10:00 Fentanyl 100 ml @ 2.5 mls/hr TITRATE IV Last administered on 01/07/17 03:50; Admin Dose 10 MLS/HR; Start 01/05/17 at 12:25 Piperacillin Sod/ Tazobactam Sod (Zosyn 2.25gm/ 50ml (Pmx)) 50 ml @ 100 mls/hr Q8 IVPB Last administered on 01/07/17 14:35; Admin Dose 100 MLS/HR; Start at 22:00 Hydralazine HCl 10 mg 10 mg Q2H PRN IV SBP >170 Last administered on 01/06/17 03:21; Admin Dose 10 MG; Start 01/06/17 at 03:00 Vancomycin HCl 250 ml @ 125 mls/hr Q48H IVPB Last administered on 01/06/17 09 :45; Admin Dose 125 MLS/HR; Start 01/06/17 at 10:00 Fluconazole/ Sodium Chloride (Diflucan 100 Mg/ NS (Pmx)) 50 ml @ 50 mls/hr Q24H IVPB Last administered on 01/07/17 13:14; Admin Dose 50 MLS/HR; Start at 12:00 NARENDRA FINLEY NP Jan 07, 2017 15:32
[2017-01-07 18:01] LABS: MICROALBUMIN 59.6 mg/dL
[2017-01-07] MEDS: DEXTROSE 5%-0.45% NACL 1,000 ML IV SCH (20:09)
[2017-01-08] VITALS (46 sets, daily range): BP systolic 125–196; BP diastolic 61–98; PULSE 70–139; RESP 13–43
[2017-01-08 04:54] LABS: ADD SCAN DIFF NO
[2017-01-08 05:31] LABS: BILIRUBIN,INDIRECT 0.4 mg/dl (0-1.1); BILIRUBIN,TOTAL 0.4 mg/dl (0.2-1.3)
[2017-01-08 05:34] LABS: CALCIUM 8.2 mg/dl (8.4-10.2); CREATININE 1.65 mg/dl (0.44-1.00); PHOSPHORUS 3.8 mg/dl (2.5-4.9); POTASSIUM 3.3 mmol/L (3.5-5.1)
[2017-01-08 05:41] LABS: ABNORMAL IP MESSAGE 1; BASOPHILS % 0.1 % (0.0-2.0); EOSINOPHILS # 0.1 10^3/ul (0.0-0.5); EOSINOPHILS % 1.3 % (0.0-7.0); HEMATOCRIT 20.2 % (37.0-47.0); LYMPHOCYTES # 0.9 10^3/ul (0.8-2.9); MEAN CORPUSCULAR HEMOGLOBIN 30.8 pg (29.0-33.0); MEAN CORPUSCULAR HGB CONC 32.7 g/dl (32.0-37.0); MEAN CORPUSCULAR VOLUME 94.4 fl (82.0-101.0); MONOCYTE # 0.9 10^3/ul (0.3-0.9); MONOCYTES % 9.2 % (0.0-11.0); NEUTROPHIL # 7.3 10^3/ul (1.6-7.5); NUCLEATED RED BLOOD CELLS # 0.3 10^3/ul (0.0-0.0); NUCLEATED RED BLOOD CELLS% 3.4 /100WBC (0.0-0.0); PLATELET COUNT 185 10^3/UL (140-415); RED BLOOD COUNT 2.14 10^6/ul (4.20-5.40); RED CELL DISTRIBUTION WIDTH 16.8 % (11.5-14.5); WHITE BLOOD COUNT 9.4 10^3/ul (4.8-10.8)
[2017-01-08 05:44] LABS: HEMOGLOBIN 6.6 g/dl (12.0-16.0)
[2017-01-08] MEDS ORDERED: POTASSIUM CHLORIDE 250 ML IVPB ONE ×2 (06:00→07:00)
[2017-01-08] MEDS: PIPER-TAZO 2.25 GM (PMX) 50 ML IVPB SCH ×3 (06:16→22:37)
[2017-01-08] MEDS: PANTOPRAZOLE 40 MG INJ IV SCH (06:18)
--- NOTE | 2017-01-08 07:34 | PN ---
Date/Time of Note Date/Time of Note DATE: 01/08/17 TIME: 07:30 Assessment/Plan VTE Prophylaxis VTE Prophylaxis Intervention: ambulation Lines/Catheters IV [facility] Type [facility]from [facility]): A Line Urinary Cath still in place: Yes Reason Cath still needed: urinary retention Assessment/Plan Chief Complaint/Hosp Course 1. Nonoliguric acute kidney injury with previously normal baseline creatinine. Etiology secondary to acute tubular necrosis due to severe anemia, ischemic hypoperfusion, shock. - Patient's renal function is improving. - continue current treatment plan, supportive care, renally dose all medications. 2. Anemia secondary to intra-abdominal bleed. The patient had a liver hematoma , capsular. The patient is status post multiple blood products. -monitor h/h, transfuse as needed 3. Mineral bone disease. Will continue to monitor calcium, phosphorus levels. No need for phosphate binders at this time. 4. hypokalemia. replace K 5. Sepsis. The patient is status post shock, currently off pressor support. Continue current antibiotic regimen. Continue IV fluids. Will decrease rate. 6. Ventilator dependent respiratory failure. Vent settings have been reviewed. ABG has been reviewed. Continue to monitor. 7. Portal vein thrombosis. 8. Multiple liver lesions status post biopsy. Findings consistent with possible lymphoplasmacytic involvement will continue to monitor. Follow up with hematology. 9. Uterine mass. Followup with Gynecology/Oncology. Status post code arrest. Please note I spent over 45 minutes of critical care time with this patient. Problems: Subjective 24 Hr Interval Summary Free Text/Dictation The patient remains stable but critical. No hemoptysis, hematemesis or hematochezia. No other events noted. Exam/Review of Systems Vital Signs Vitals Vital Signs Date Time Temp Pulse Resp B/P Pulse Ox O2 Delivery O2 Flow Rate FiO2 01/08/17 06:00 83 18 142/71 99 Mechanical Ventilator 01/08/17 05:17 40 01/08/17 04:00 99.2 01/04/17 20:06 6.0 Intake and Output 01/07/17 01/07/17 01/08/17 15:00 23:00 07:00 Intake Total 790 ml 890 ml 610 ml Output Total 510 ml 540 ml 560 ml Balance 280 ml 350 ml 50 ml Exam HEENT: Head is normocephalic. Pupils are reactive to light. NECK: Supple. HEART: Regular rate. LUNGS: Show diminished breath sounds at base. ABDOMEN: Soft, nontender to palpation. No rebound or guarding. EXTREMITIES: Negative for clubbing, cyanosis, no edema. DERMATOLOGIC: No rashes. MUSCULOSKELETAL: No joint effusions. NEUROLOGIC: No change in exam. Results Result Diagram: 01/08/17 0345 01/08/17 0345 Results 24 hrs Laboratory Tests Test 01/08/17 03:45 White Blood Count 9.4 # Red Blood Count 2.14 L Hemoglobin 6.6 *L Hematocrit 20.2 L Mean Corpuscular Volume 94.4 Mean Corpuscular Hemoglobin 30.8 Mean Corpuscular Hemoglobin Concent 32.7 Red Cell Distribution Width 16.8 H Platelet Count 185 Mean Platelet Volume 11.0 H Neutrophils % 77.0 Lymphocytes % 10.0 L Monocytes % 9.2 Eosinophils % 1.3 Basophils % 0.1 Nucleated Red Blood Cells % 3.4 H Neutrophils # 7.3 Lymphocytes # 0.9 Monocytes # 0.9 Eosinophils # 0.1 Basophils # 0.0 Nucleated Red Blood Cells # 0.3 H Sodium Level 141 Potassium Level 3.3 L Chloride Level 107 Carbon Dioxide Level 26 Anion Gap 11 # Blood Urea Nitrogen 26 H Creatinine 1.65 H Glucose Level 90 Calcium Level 8.2 L Phosphorus Level 3.8 Magnesium Level 2.0 Total Bilirubin 0.4 Direct Bilirubin 0.00 Indirect Bilirubin 0.4 Aspartate Amino Transf (AST/SGOT) 214 H Alanine Aminotransferase (ALT/SGPT) 155 H Alkaline Phosphatase 179 H Medications Medications Current Medications Ondansetron HCl (Zofran Inj) 4 mg Q6H PRN IV NAUSEA AND/OR VOMITING Last administered on 01/05/17 02:20; Admin Dose 4 MG; Start 12/20/16 at 07:30 Acetaminophen (Tylenol Tab) 650 mg Q6H PRN PO PAIN LEVEL 1-3 OR FEVER Last administered on 12/30/16 12:40; Admin Dose 650 MG; Start 12/20/16 at 07:30 Morphine Sulfate (morphine) 4 mg Q4H PRN IV SEVERE PAIN LEVEL 7-10 Last administered on 01/04/17 06:27; Admin Dose 4 MG; Start 12/20/16 at 07:30 Amlodipine Besylate (Norvasc) 5 mg DAILY PO Last administered on 01/03/17 09: 01; Admin Dose 5 MG; Start 12/21/16 at 09:00 Acetaminophen/ Hydrocodone Bitart ([place] (5/325)) 1 tab Q6H PRN PO PAIN LEVEL 7 -10 Last administered on 01/03/17 21:54; Admin Dose 1 TAB; Start 12/30/16 at 18 :00 Hydromorphone HCl (Dilaudid) 1 mg Q4H PRN IV SEVERE PAIN LEVEL 7-10 Last administered on 01/05/17 02:21; Admin Dose 1 MG; Start 01/02/17 at 17:45 Docusate Sodium (Colace) 100 mg BID PO Last administered on 01/03/17 21:54; Admin Dose 100 MG; Start 01/03/17 at 21:00 Senna (Senokot) 1 tab BID PO Last administered on 01/03/17 21:54; Admin Dose 1 TAB; Start 01/03/17 at 21:00 Polyethylene Glycol 8.5 gm 8.5 gm DAILY PO Last administered on 01/03/17 17:36 ; Admin Dose 8.5 GM; Start 01/03/17 at 15:30 Levetiracetam 100 ml @ 400 mls/hr Q12 IVPB Last administered on 01/07/17 20: 46; Admin Dose 400 MLS/HR; Start 01/04/17 at 11:00 Norepinephrine/ Dextrose (Levophed/D5W) 500 ml @ 1.87 mls/hr TITRATE IV Last administered on 01/05/17 09:13; Admin Dose 28.12 MLS/HR; Start 01/04/17 at 11: 00 Lorazepam (Ativan) 1 mg Q1H PRN IV Seizures; Start 01/04/17 at 19:30 IV Flush (NS 10 ml) 10 ml PRN PRN IV FLUSH LINE; Start 01/04/17 at 20:00 Morphine Sulfate (morphine) 2 mg Q4H PRN IV pain Last administered on 01:13; Admin Dose 2 MG; Start 01/05/17 at 01:30 Pantoprazole (Protonix Iv) 40 mg DAILY@06 IV Last administered on 01/08/17 06: 18; Admin Dose 40 MG; Start 01/05/17 at 06:30 Lorazepam 1 mg 1 mg Q4H PRN IV agitation Last administered on 01/05/17 12:10; Admin Dose 1 MG; Start 01/05/17 at 07:00 Fentanyl 100 ml @ 2.5 mls/hr TITRATE IV Last administered on 01/07/17 21:54; Admin Dose 5 MLS/HR; Start 01/05/17 at 12:25 Piperacillin Sod/ Tazobactam Sod (Zosyn 2.25gm/ 50ml (Pmx)) 50 ml @ 100 mls/hr Q8 IVPB Last administered on 01/08/17 06:16; Admin Dose 100 MLS/HR; Start at 22:00 Hydralazine HCl 10 mg 10 mg Q2H PRN IV SBP >170 Last administered on 01/06/17 03:21; Admin Dose 10 MG; Start 01/06/17 at 03:00 Vancomycin HCl 250 ml @ 125 mls/hr Q48H IVPB Last administered on 01/06/17 09 :45; Admin Dose 125 MLS/HR; Start 01/06/17 at 10:00 Fluconazole/ Sodium Chloride 50 ml @ 50 mls/hr Q24H IVPB Last administered on 13:14; Admin Dose 50 MLS/HR; Start 01/07/17 at 12:00 Dextrose/Sodium Chloride 1,000 ml @ 50 mls/hr Q20H IV Last administered on 20:09; Admin Dose 75 MLS/HR; Start 01/07/17 at 20:00 Potassium Chloride (KCl 40 MEQ/250 ML NS) 250 ml @ 62.5 mls/hr ONCE ONCE IVPB Last administered on 01/08/17 06:18; Admin Dose 62.5 MLS/HR; Start 01/08/17 at 06:00; Stop 01/08/17 at 09:59 MILLY DAIGLE DO Jan 08, 2017 07:34
[2017-01-08 07:55] LABS: AADO2 Arterial 139.7 mmHg (7.0-24.0); Arterial Base Excess 0.2 mmol/L (-3.0-3); Arterial COHb 0.1 % (0.0-3.0); Arterial Fraction of Oxyhgb 96.9 % (93.0-99.0); Arterial HCO3 23.5 mmol/L (22.0-26.0); Arterial MetHb 0.5 % (0.0-1.5); Arterial Total Hemglobin 7.4 g/dl (12.0-18.0); MODE VENT - AC
[2017-01-08] MEDS: AMLODIPINE 5 MG TAB PO SCH (08:09)
[2017-01-08] MEDS: DOCUSATE SODIUM 100 MG CAP PO SCH ×2 (08:09→20:37)
[2017-01-08] MEDS: POLYETHYLENE GLYCOL 17 GM PACKET PO SCH (08:09)
[2017-01-08] MEDS: SENNA TAB PO SCH ×2 (08:10→20:37)
[2017-01-08] MEDS: LEVETIRACETAM 1000 MG (PMX) 100 ML IVPB SCH ×2 (08:37→20:37)
--- NOTE | 2017-01-08 08:45 | PN ---
Date/Time of Note Date/Time of Note DATE: 01/08/17 TIME: 08:33 Assessment/Plan VTE Prophylaxis VTE Prophylaxis Intervention: SCD's VTE Contraindication Reason: bleeding Lines/Catheters IV Catheter Type (from Nrsg): A Line Urinary Cath still in place: Yes Reason Cath still needed: other (indicate) Assessment/Plan Assessment/Plan 51-year-old female who had initially presented with abdominal pain and was found to have extensive portal vein and right hepatic vein thrombosis. Initial imaging was concerning for multiple liver lesions, pulmonary nodules, as well as a uterine mass. She was started on anticoagulation for her thrombosis, while she underwent further workup for her right-sided liver masses to rule out a metastatic process. She needed an MRI with gadolinium contrast, however she developed acute renal insufficiency from contrast versus vancomycin, and we had to wait for renal function to normalize before she could get the MRI. She got the MRI and subsequently underwent a liver biopsy. Pathology showed concern for lymphoplasmacytic involvement, and a second opinion has been sent to [facility] and is still pending. However in the interim, patient has decompensated; initially complaining of her right upper quadrant pain after the biopsy , was found to have a capsular hematoma thought to be from the location of biopsy with moderate blood seen throughout the abdomen and pelvis. She was also found to have severe coagulopathy concerning for DIC. She is at this time being managed in the ICU for the followin. Severe systemic shock likely hypovolemic from acute intra-abdominal hemorrhage / subcapsular hepatic hematoma causing severe coagulopathy: improved / off pressors 2. Ventilator dependent respiratory failure secondary to #3 3. Acute encephalopathy secondary to #4: improving 4. Recurrence of acute kidney injury secondary to #1: improving 5. Concern for metastatic disease with hepatic masses as well as uterine mass 6. Hypertension: fluctuating control 7. Diffuse venous thrombosis to include hepatic, portal, and right upper extremity veins also suggestive of metastatic disease 8. Status post alpha hemolytic strep bacteremia 9. Solitary seizure episode likely secondary to #1 10. Acute transaminitis and coagulopathy secondary to subcapsular hematoma s/p status post hepatic artery ligation versus embolization via IR : Improving Plan: * Continue ventilator weaning * Will start NG tube feedings today * Serial labs and replacement of blood prod FFP / Vit K / PRBC / Platelets as indicated / appreciate hematology input and help * Monitor renal and hepatic function / IVF Is normal saline at 75 cc an hour * Per report patient is status post hepatic artery ligation versus embolization and hence is high risk for hepatic failure as she already had a hepatic vein thrombosis. Closely monitor. * Patient is also on Keppra for single seizure episode * Follow-up final pathology results from [facility] * Regarding uterine lesion, patient is going to total hysterectomy and possible salpingo-oophorectomy with mass excision and biopsy when stable Prophylaxis: SCDs/IV PPI Prognosis: Guarded CC time >30mins Subjective 24 Hr Interval Summary Free Text/Dictation Patient seen and examined. Intubated , but arousable and alert Exam/Review of Systems Vital Signs Vitals Vital Signs Date Time Temp Pulse Resp B/P Pulse Ox O2 Delivery O2 Flow Rate FiO2 01/08/17 08:00 99.0 82 15 125/61 99 Mechanical Ventilator 01/08/17 08:00 40 01/04/17 20:06 6.0 Intake and Output 01/07/17 01/07/17 01/08/17 15:00 23:00 07:00 Intake Total 790 ml 890 ml 610 ml Output Total 510 ml 540 ml 630 ml Balance 280 ml 350 ml -20 ml Exam GENERAL: Arousable, comfortable on vent HEENT: HUMBERTO, Intubated, LUNGS: diffusely diminished and coarse BS HEART: S1, S2. No murmur, gallops or rubs. Tachycardic ABDOMEN: Soft, full, Normoactive bowel sounds. GENITOURINARY: Normal female external genitalia, Lau to bedside drainage EXTREMITIES: No edema NEUROLOGIC: Moves all 4 extremities, currently requiring restraints SKIN: Otherwise, unremarkable. Results Result Diagram: 01/08/17 0345 01/08/17 0345 Results 24 hrs Laboratory Tests Test 01/08/17 03:45 01/08/17 07:00 White Blood Count 9.4 # Red Blood Count 2.14 L Hemoglobin 6.6 *L Hematocrit 20.2 L Mean Corpuscular Volume 94.4 Mean Corpuscular Hemoglobin 30.8 Mean Corpuscular Hemoglobin Concent 32.7 Red Cell Distribution Width 16.8 H Platelet Count 185 Mean Platelet Volume 11.0 H Neutrophils % 77.0 Lymphocytes % 10.0 L Monocytes % 9.2 Eosinophils % 1.3 Basophils % 0.1 Nucleated Red Blood Cells % 3.4 H Neutrophils # 7.3 Lymphocytes # 0.9 Monocytes # 0.9 Eosinophils # 0.1 Basophils # 0.0 Nucleated Red Blood Cells # 0.3 H Sodium Level 141 Potassium Level 3.3 L Chloride Level 107 Carbon Dioxide Level 26 Anion Gap 11 # Blood Urea Nitrogen 26 H Creatinine 1.65 H Glucose Level 90 Calcium Level 8.2 L Phosphorus Level 3.8 Magnesium Level 2.0 Total Bilirubin 0.4 Direct Bilirubin 0.00 Indirect Bilirubin 0.4 Aspartate Amino Transf (AST/SGOT) 214 H Alanine Aminotransferase (ALT/SGPT) 155 H Alkaline Phosphatase 179 H Blood Gas Specimen Source Blood arterial Arterial Blood Date Drawn 01/08/2017 7:45:00 AM Arterial Blood pH (Temp corrected) 7.483 H Arterial Blood pCO2 (Temp correct) 32.1 L Arterial Blood pO2 (Temp corrected) 108.6 H Arterial Blood HCO3 23.5 Arterial Blood Base Excess 0.2 Arterial Blood Oxygen Saturation 97.5 [place] Test N/A Arterial Blood Gas Puncture Site A-Line Arterial Blood Carboxyhemoglobin 0.1 Arterial Blood Methemoglobin 0.5 Blood Gas A-a O2 Differential 139.7 H Oxyhemoglobin Percent 96.9 Total Hemoglobin 7.4 L Blood Gas Temperature 37.0 Blood Gas Respiration Rate 14.0 Blood Gas Actual Respiration Rate 27 Blood Gas Modality VENT - AC FiO2 40.0 Blood Gas Tidal Volume 500.0 Blood Gas Low PEEP Setting 5.0 Blood Gas Notified Whom JLD Blood Gas Notified Time 01/08/2017 7:55:00 AM Medications Medications Current Medications Ondansetron HCl (Zofran Inj) 4 mg Q6H PRN IV NAUSEA AND/OR VOMITING Last administered on 01/05/17 02:20; Admin Dose 4 MG; Start 12/20/16 at 07:30 Acetaminophen (Tylenol Tab) 650 mg Q6H PRN PO PAIN LEVEL 1-3 OR FEVER Last administered on 12/30/16 12:40; Admin Dose 650 MG; Start 12/20/16 at 07:30 Morphine Sulfate (morphine) 4 mg Q4H PRN IV SEVERE PAIN LEVEL 7-10 Last administered on 01/04/17 06:27; Admin Dose 4 MG; Start 12/20/16 at 07:30 Amlodipine Besylate (Norvasc) 5 mg DAILY PO Last administered on 01/03/17 09: 01; Admin Dose 5 MG; Start 12/21/16 at 09:00 Acetaminophen/ Hydrocodone Bitart ([place] (5/325)) 1 tab Q6H PRN PO PAIN LEVEL 7 -10 Last administered on 01/03/17 21:54; Admin Dose 1 TAB; Start 12/30/16 at 18 :00 Hydromorphone HCl (Dilaudid) 1 mg Q4H PRN IV SEVERE PAIN LEVEL 7-10 Last administered on 01/05/17 02:21; Admin Dose 1 MG; Start 01/02/17 at 17:45 Docusate Sodium (Colace) 100 mg BID PO Last administered on 01/03/17 21:54; Admin Dose 100 MG; Start 01/03/17 at 21:00 Senna (Senokot) 1 tab BID PO Last administered on 01/03/17 21:54; Admin Dose 1 TAB; Start 01/03/17 at 21:00 Polyethylene Glycol 8.5 gm 8.5 gm DAILY PO Last administered on 01/03/17 17:36 ; Admin Dose 8.5 GM; Start 01/03/17 at 15:30 Levetiracetam 100 ml @ 400 mls/hr Q12 IVPB Last administered on 01/07/17 20: 46; Admin Dose 400 MLS/HR; Start 01/04/17 at 11:00 Norepinephrine/ Dextrose (Levophed/D5W) 500 ml @ 1.87 mls/hr TITRATE IV Last administered on 01/05/17 09:13; Admin Dose 28.12 MLS/HR; Start 01/04/17 at 11: 00 Lorazepam (Ativan) 1 mg Q1H PRN IV Seizures; Start 01/04/17 at 19:30 IV Flush (NS 10 ml) 10 ml PRN PRN IV FLUSH LINE; Start 01/04/17 at 20:00 Morphine Sulfate (morphine) 2 mg Q4H PRN IV pain Last administered on 01:13; Admin Dose 2 MG; Start 01/05/17 at 01:30 Pantoprazole (Protonix Iv) 40 mg DAILY@06 IV Last administered on 01/08/17 06: 18; Admin Dose 40 MG; Start 01/05/17 at 06:30 Lorazepam 1 mg 1 mg Q4H PRN IV agitation Last administered on 01/05/17 12:10; Admin Dose 1 MG; Start 01/05/17 at 07:00 Fentanyl 100 ml @ 2.5 mls/hr TITRATE IV Last administered on 01/07/17 21:54; Admin Dose 5 MLS/HR; Start 01/05/17 at 12:25 Piperacillin Sod/ Tazobactam Sod (Zosyn 2.25gm/ 50ml (Pmx)) 50 ml @ 100 mls/hr Q8 IVPB Last administered on 01/08/17 06:16; Admin Dose 100 MLS/HR; Start at 22:00 Hydralazine HCl 10 mg 10 mg Q2H PRN IV SBP >170 Last administered on 01/06/17 03:21; Admin Dose 10 MG; Start 01/06/17 at 03:00 Vancomycin HCl 250 ml @ 125 mls/hr Q48H IVPB Last administered on 01/06/17 09 :45; Admin Dose 125 MLS/HR; Start 01/06/17 at 10:00 Fluconazole/ Sodium Chloride 50 ml @ 50 mls/hr Q24H IVPB Last administered on 13:14; Admin Dose 50 MLS/HR; Start 01/07/17 at 12:00 Dextrose/Sodium Chloride 1,000 ml @ 50 mls/hr Q20H IV Last administered on 20:09; Admin Dose 75 MLS/HR; Start 01/07/17 at 20:00 Potassium Chloride (KCl 40 MEQ/250 ML NS) 250 ml @ 62.5 mls/hr ONCE ONCE IVPB Last administered on 01/08/17 06:18; Admin Dose 62.5 MLS/HR; Start 01/08/17 at 06:00; Stop 01/08/17 at 09:59 KAHLIL MARTEL Jan 08, 2017 08:44
--- NOTE | 2017-01-08 09:10 | RADRPT ---
PROCEDURE: XR Chest 1 View. CLINICAL INDICATION: Shortness of breath TECHNIQUE: AP view of the chest was obtained. COMPARISON: Yesterday FINDINGS: Heart is large. Endotracheal tube is stable and appears in grossly appropriate location. Left-sided PICC line is unchanged. The lungs are hypoinflated. Central pulmonary vascular congestion and inte rstitial prominence is unchanged. Elevation right hemidiaphragm is identified. Right lower lung inf iltrates combined small pleural effusion are stable. Small left pleural effusion with associated ba silar atelectasis/infiltrate is unchanged. The osseous structures are unchanged. IMPRESSION: Cardiomegaly. Hypoinflated lungs with stable elevation right hemidiaphragm. Stable central pulmonary vascular congestion and interstitial prominence. Stable right lower lung infiltrates, combined with small pleural effusion. Small left pleural effusion with associated basilar atelectasis/infiltrate. RPTAT: AA .Willi Johns MD, Date Time Electronically viewed and signed by .Willi Johns MD, MD on 01/08/2017 09:10 .P/
--- NOTE | 2017-01-08 09:34 | CONS ---
Date/Time of Note Date/Time of Note DATE: 01/08/17 TIME: 09:30 Assessment/Plan Assessment/Plan Additional Assessment/Plan Ventilator setting; AC of 14, tidal volume 500, PEEP of 5, 40% FiO2. Chest x-ray was reviewed from today which is showing significant improvement in right lower lobe atelectasis/infiltrate. Next Assessment and recommendations; 1. Patient admitted with abdominal pain discovered to have multiple hepatic lesions which were thought to be hepatic abscesses with likely hematogenous spread to the lungs causing bilateral pneumonia. Patient status post liver biopsy which has been negative for any malignancy or infection. 2. Patient developed portal vein thrombosis, then developed massive hepatic subcapsular hematoma leading to respiratory failure requiring intubation. 3. Marked overall clinical improvement. 4. Right lower lobe pneumonia/atelectasis with interval improvement as well. 5. Acute renal injury with improving serum creatinine. 6. Anemia. Continue current treatment for now. Patient to be transfused 2 units packed RBCs again. After being transfused patient will be evaluated for weaning from ventilator. Meanwhile continue current treatment. Consultation Date/Type/Reason Admit Date/Time Dec 19, 2016 at 21:34 Initial Consult Date 12/20/16 Type of Consultation: Pulmonary/critical care Referring Provider: KAHLIL MARTEL 24 HR Interval Summary Free Text/Dictation Patient condition remains critical but stable. She is completely awake alert. Has remained hemodynamically stable. General examination; middle-aged woman, orally intubated, awake alert. Currently in no distress. Exam/Review of Systems Vital Signs Vitals Vital Signs Date Time Temp Pulse Resp B/P Pulse Ox O2 Delivery O2 Flow Rate FiO2 01/08/17 09:00 127 38 100 40 01/08/17 08:00 99.0 125/61 Mechanical Ventilator 01/04/17 20:06 6.0 Intake and Output 01/07/17 01/07/17 01/08/17 15:00 23:00 07:00 Intake Total 790 ml 890 ml 752.5 ml Output Total 510 ml 540 ml 630 ml Balance 280 ml 350 ml 122.5 ml Exam HEENT exam; supple neck, no JVD. No lymphadenopathy. Midline trachea. No thyromegaly. Orally intubated. Pupils are midsize and reactive to light. Patient has fair dentition. No neck masses. Chest exam; clear to auscultation. S1-S2 audible, no murmurs. Regular rhythm. Abdomen exam is; soft, non-distended. Nontender. No organomegaly. Bowel sounds audible. Extremity exam is; no peripheral edema. Pulses 1+ bilaterally. DOOR [employer]KER examination; patient is awake alert follows commands and moves all 4 extremities on command. Results Result Diagram: 01/08/17 0345 01/08/17 0345 Results 24 hrs Laboratory Tests Test 01/08/17 03:45 01/08/17 07:00 01/08/17 09:05 White Blood Count 9.4 # Red Blood Count 2.14 L Hemoglobin 6.6 *L Hematocrit 20.2 L Mean Corpuscular Volume 94.4 Mean Corpuscular Hemoglobin 30.8 Mean Corpuscular Hemoglobin Concent 32.7 Red Cell Distribution Width 16.8 H Platelet Count 185 Mean Platelet Volume 11.0 H Neutrophils % 77.0 Lymphocytes % 10.0 L Monocytes % 9.2 Eosinophils % 1.3 Basophils % 0.1 Nucleated Red Blood Cells % 3.4 H Neutrophils # 7.3 Lymphocytes # 0.9 Monocytes # 0.9 Eosinophils # 0.1 Basophils # 0.0 Nucleated Red Blood Cells # 0.3 H Sodium Level 141 Potassium Level 3.3 L Chloride Level 107 Carbon Dioxide Level 26 Anion Gap 11 # Blood Urea Nitrogen 26 H Creatinine 1.65 H Glucose Level 90 Calcium Level 8.2 L Phosphorus Level 3.8 Magnesium Level 2.0 Total Bilirubin 0.4 Direct Bilirubin 0.00 Indirect Bilirubin 0.4 Aspartate Amino Transf (AST/SGOT) 214 H Alanine Aminotransferase (ALT/SGPT) 155 H Alkaline Phosphatase 179 H Blood Gas Specimen Source Blood arterial Arterial Blood Date Drawn 01/08/2017 7:45:00 AM Arterial Blood pH (Temp corrected) 7.483 H Arterial Blood pCO2 (Temp correct) 32.1 L Arterial Blood pO2 (Temp corrected) 108.6 H Arterial Blood HCO3 23.5 Arterial Blood Base Excess 0.2 Arterial Blood Oxygen Saturation 97.5 [place] Test N/A Arterial Blood Gas Puncture Site A-Line Arterial Blood Carboxyhemoglobin 0.1 Arterial Blood Methemoglobin 0.5 Blood Gas A-a O2 Differential 139.7 H Oxyhemoglobin Percent 96.9 Total Hemoglobin 7.4 L Blood Gas Temperature 37.0 Blood Gas Respiration Rate 14.0 Blood Gas Actual Respiration Rate 27 Blood Gas Modality VENT - AC FiO2 40.0 Blood Gas Tidal Volume 500.0 Blood Gas Low PEEP Setting 5.0 Blood Gas Notified Whom JLD Blood Gas Notified Time 01/08/2017 7:55:00 AM Lab Scanned Report REFERENCE LAB Medications Medications Current Medications Ondansetron HCl (Zofran Inj) 4 mg Q6H PRN IV NAUSEA AND/OR VOMITING Last administered on 01/05/17 02:20; Admin Dose 4 MG; Start 12/20/16 at 07:30 Acetaminophen (Tylenol Tab) 650 mg Q6H PRN PO PAIN LEVEL 1-3 OR FEVER Last administered on 12/30/16 12:40; Admin Dose 650 MG; Start 12/20/16 at 07:30 Morphine Sulfate (morphine) 4 mg Q4H PRN IV SEVERE PAIN LEVEL 7-10 Last administered on 01/04/17 06:27; Admin Dose 4 MG; Start 12/20/16 at 07:30 Amlodipine Besylate (Norvasc) 5 mg DAILY PO Last administered on 01/03/17 09: 01; Admin Dose 5 MG; Start 12/21/16 at 09:00 Acetaminophen/ Hydrocodone Bitart ([place] (5/325)) 1 tab Q6H PRN PO PAIN LEVEL 7 -10 Last administered on 01/03/17 21:54; Admin Dose 1 TAB; Start 12/30/16 at 18 :00 Hydromorphone HCl (Dilaudid) 1 mg Q4H PRN IV SEVERE PAIN LEVEL 7-10 Last administered on 01/05/17 02:21; Admin Dose 1 MG; Start 01/02/17 at 17:45 Docusate Sodium (Colace) 100 mg BID PO Last administered on 01/03/17 21:54; Admin Dose 100 MG; Start 01/03/17 at 21:00 Senna (Senokot) 1 tab BID PO Last administered on 01/03/17 21:54; Admin Dose 1 TAB; Start 01/03/17 at 21:00 Polyethylene Glycol 8.5 gm 8.5 gm DAILY PO Last administered on 01/03/17 17:36 ; Admin Dose 8.5 GM; Start 01/03/17 at 15:30 Levetiracetam 100 ml @ 400 mls/hr Q12 IVPB Last administered on 01/08/17 08: 37; Admin Dose 400 MLS/HR; Start 01/04/17 at 11:00 Norepinephrine/ Dextrose (Levophed/D5W) 500 ml @ 1.87 mls/hr TITRATE IV Last administered on 01/05/17 09:13; Admin Dose 28.12 MLS/HR; Start 01/04/17 at 11: 00 Lorazepam (Ativan) 1 mg Q1H PRN IV Seizures; Start 01/04/17 at 19:30 IV Flush (NS 10 ml) 10 ml PRN PRN IV FLUSH LINE; Start 01/04/17 at 20:00 Morphine Sulfate (morphine) 2 mg Q4H PRN IV pain Last administered on 01:13; Admin Dose 2 MG; Start 01/05/17 at 01:30 Pantoprazole (Protonix Iv) 40 mg DAILY@06 IV Last administered on 01/08/17 06: 18; Admin Dose 40 MG; Start 01/05/17 at 06:30 Lorazepam 1 mg 1 mg Q4H PRN IV agitation Last administered on 01/05/17 12:10; Admin Dose 1 MG; Start 01/05/17 at 07:00 Fentanyl 100 ml @ 2.5 mls/hr TITRATE IV Last administered on 01/07/17 21:54; Admin Dose 5 MLS/HR; Start 01/05/17 at 12:25 Piperacillin Sod/ Tazobactam Sod (Zosyn 2.25gm/ 50ml (Pmx)) 50 ml @ 100 mls/hr Q8 IVPB Last administered on 01/08/17 06:16; Admin Dose 100 MLS/HR; Start at 22:00 Hydralazine HCl 10 mg 10 mg Q2H PRN IV SBP >170 Last administered on 01/06/17 03:21; Admin Dose 10 MG; Start 01/06/17 at 03:00 Vancomycin HCl 250 ml @ 125 mls/hr Q48H IVPB Last administered on 01/06/17 09 :45; Admin Dose 125 MLS/HR; Start 01/06/17 at 10:00 Fluconazole/ Sodium Chloride 50 ml @ 50 mls/hr Q24H IVPB Last administered on 13:14; Admin Dose 50 MLS/HR; Start 01/07/17 at 12:00 Dextrose/Sodium Chloride 1,000 ml @ 50 mls/hr Q20H IV Last administered on 20:09; Admin Dose 75 MLS/HR; Start 01/07/17 at 20:00 Potassium Chloride (KCl 40 MEQ/250 ML NS) 250 ml @ 62.5 mls/hr ONCE ONCE IVPB Last administered on 01/08/17 06:18; Admin Dose 62.5 MLS/HR; Start 01/08/17 at 06:00; Stop 01/08/17 at 09:59 RONNY VELÁZQUEZ 28, 2017 09:34
[2017-01-08] MEDS: VANCOMYCIN 1 GM in NS 250 ML IVPB SCH (10:16)
[2017-01-08] MEDS: DEXTROSE 5%-0.45% NACL 1,000 ML IV SCH (10:17)
[2017-01-08 11:08] LABS: AADO2 Arterial 159.8 mmHg (7.0-24.0); Arterial Base Excess -2.6 mmol/L (-3.0-3); Arterial COHb 0.3 % (0.0-3.0); Arterial HCO3 21.3 mmol/L (22.0-26.0); Arterial MetHb 0.5 % (0.0-1.5); Arterial Total Hemglobin 8.1 g/dl (12.0-18.0); Blood Gas PS 10; MODE VENT - CPAP
--- NOTE | 2017-01-08 11:48 | CONS ---
Date/Time of Note Date/Time of Note DATE: 01/08/17 TIME: 11:46 Assessment/Plan Assessment/Plan Chief Complaint/Hosp Course SUBJECTIVE: No acute changes overnight per report. Patient is awake, comfortable on vent, no fevers MICROBIOLOGY: Sputum cx + C alb. INDWELLINGS: Endotracheal tube, G-tube, Lau catheter, A-line, and PICC line. ANTIMICROBIALS: 1. Vancomycin. 2. Zosyn. 3. Diflucan PHYSICAL EXAMINATION: GENERAL: This is a well-developed, obese, middle-aged woman who is awake, responsive, lying comfortably in bed. HEENT: Head atraumatic, normocephalic. Sclerae anicteric. Buccal mucosa dry. NECK: Supple. CHEST: Rise symmetrical. Breath sounds diminished to bases. HEART: S1, S2. ABDOMEN: Soft. Bowel tones present. EXTREMITIES: With trace edema. ASSESSMENT: 1. Severe sepsis with shock, possibly also hypovolemic==> off pressors. 2. Acute respiratory failure. 3. Severe bilateral pneumonia. 4. Acute anemia, status post liver biopsy with massive subcapsular hepatic hematoma. 5. 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 6. Pelvic mass. PLAN: Remains stable off pressors, clinically improving, WBC tracing down, continue abx, vent per pulmonary, bld products prn ==> pending final work up DW staff Problems: Consultation Date/Type/Reason Admit Date/Time Dec 19, 2016 at 21:34 Initial Consult Date 12/20/16 Type of Consultation: Infectious disease Referring Provider: KAHLIL MARTEL Exam/Review of Systems Vital Signs Vitals Vital Signs Date Time Temp Pulse Resp B/P Pulse Ox O2 Delivery O2 Flow Rate FiO2 01/08/17 11:25 122 40 100 40 01/08/17 10:30 159/73 01/08/17 10:00 Mechanical Ventilator 01/08/17 08:00 99.0 01/04/17 20:06 6.0 Intake and Output 01/07/17 01/07/17 01/08/17 15:00 23:00 07:00 Intake Total 790 ml 890 ml 752.5 ml Output Total 510 ml 540 ml 630 ml Balance 280 ml 350 ml 122.5 ml Results Result Diagram: 01/08/17 0345 01/08/17 0345 Results 24 hrs Laboratory Tests Test 01/08/17 03:45 01/08/17 07:00 01/08/17 09:05 01/08/17 11:00 White Blood Count 9.4 # Red Blood Count 2.14 L Hemoglobin 6.6 *L Hematocrit 20.2 L Mean Corpuscular Volume 94.4 Mean Corpuscular Hemoglobin 30.8 Mean Corpuscular Hemoglobin Concent 32.7 Red Cell Distribution Width 16.8 H Platelet Count 185 Mean Platelet Volume 11.0 H Neutrophils % 77.0 Lymphocytes % 10.0 L Monocytes % 9.2 Eosinophils % 1.3 Basophils % 0.1 Nucleated Red Blood Cells % 3.4 H Neutrophils # 7.3 Lymphocytes # 0.9 Monocytes # 0.9 Eosinophils # 0.1 Basophils # 0.0 Nucleated Red Blood Cells # 0.3 H Sodium Level 141 Potassium Level 3.3 L Chloride Level 107 Carbon Dioxide Level 26 Anion Gap 11 # Blood Urea Nitrogen 26 H Creatinine 1.65 H Glucose Level 90 Calcium Level 8.2 L Phosphorus Level 3.8 Magnesium Level 2.0 Total Bilirubin 0.4 Direct Bilirubin 0.00 Indirect Bilirubin 0.4 Aspartate Amino Transf (AST/SGOT) 214 H Alanine Aminotransferase (ALT/SGPT) 155 H Alkaline Phosphatase 179 H Blood Gas Specimen Source Blood arterial Blood arterial Arterial Blood Date Drawn 01/08/2017 7:45:00 AM 01/08/2017 10:50:02 AM Arterial Blood pH (Temp corrected) 7.483 H 7.426 Arterial Blood pCO2 (Temp correct) 32.1 L 33.2 L Arterial Blood pO2 (Temp corrected) 108.6 H 87.2 Arterial Blood HCO3 23.5 21.3 L Arterial Blood Base Excess 0.2 -2.6 Arterial Blood Oxygen Saturation 97.5 95.8 [place] Test N/A N/A Arterial Blood Gas Puncture Site A-Line A-Line Arterial Blood Carboxyhemoglobin 0.1 0.3 Arterial Blood Methemoglobin 0.5 0.5 Blood Gas A-a O2 Differential 139.7 H 159.8 H Oxyhemoglobin Percent 96.9 95.0 Total Hemoglobin 7.4 L 8.1 L Blood Gas Temperature 37.0 37.0 Blood Gas Respiration Rate 14.0 Blood Gas Actual Respiration Rate 27 34 Blood Gas Modality VENT - AC VENT - CPAP FiO2 40.0 40.0 Blood Gas Tidal Volume 500.0 Blood Gas Low PEEP Setting 5.0 5.0 Blood Gas Notified Whom MELD JLNoa Blood Gas Notified Time 01/08/2017 7:55:00 AM 01/08/2017 11:06:52 AM Lab Scanned Report REFERENCE LAB Blood Gas Pressure Support 10 Medications Medications Current Medications Ondansetron HCl (Zofran Inj) 4 mg Q6H PRN IV NAUSEA AND/OR VOMITING Last administered on 01/05/17 02:20; Admin Dose 4 MG; Start 12/20/16 at 07:30 Acetaminophen (Tylenol Tab) 650 mg Q6H PRN PO PAIN LEVEL 1-3 OR FEVER Last administered on 12/30/16 12:40; Admin Dose 650 MG; Start 12/20/16 at 07:30 Morphine Sulfate (morphine) 4 mg Q4H PRN IV SEVERE PAIN LEVEL 7-10 Last administered on 01/04/17 06:27; Admin Dose 4 MG; Start 12/20/16 at 07:30 Amlodipine Besylate (Norvasc) 5 mg DAILY PO Last administered on 01/03/17 09: 01; Admin Dose 5 MG; Start 12/21/16 at 09:00 Acetaminophen/ Hydrocodone Bitart ([place] (5/325)) 1 tab Q6H PRN PO PAIN LEVEL 7 -10 Last administered on 01/03/17 21:54; Admin Dose 1 TAB; Start 12/30/16 at 18 :00 Hydromorphone HCl (Dilaudid) 1 mg Q4H PRN IV SEVERE PAIN LEVEL 7-10 Last administered on 01/05/17 02:21; Admin Dose 1 MG; Start 01/02/17 at 17:45 Docusate Sodium (Colace) 100 mg BID PO Last administered on 01/03/17 21:54; Admin Dose 100 MG; Start 01/03/17 at 21:00 Senna (Senokot) 1 tab BID PO Last administered on 01/03/17 21:54; Admin Dose 1 TAB; Start 01/03/17 at 21:00 Polyethylene Glycol 8.5 gm 8.5 gm DAILY PO Last administered on 01/03/17 17:36 ; Admin Dose 8.5 GM; Start 01/03/17 at 15:30 Levetiracetam 100 ml @ 400 mls/hr Q12 IVPB Last administered on 01/08/17 08: 37; Admin Dose 400 MLS/HR; Start 01/04/17 at 11:00 Norepinephrine/ Dextrose (Levophed/D5W) 500 ml @ 1.87 mls/hr TITRATE IV Last administered on 01/05/17 09:13; Admin Dose 28.12 MLS/HR; Start 01/04/17 at 11: 00 Lorazepam (Ativan) 1 mg Q1H PRN IV Seizures; Start 01/04/17 at 19:30 IV Flush (NS 10 ml) 10 ml PRN PRN IV FLUSH LINE; Start 01/04/17 at 20:00 Morphine Sulfate (morphine) 2 mg Q4H PRN IV pain Last administered on 01:13; Admin Dose 2 MG; Start 01/05/17 at 01:30 Pantoprazole (Protonix Iv) 40 mg DAILY@06 IV Last administered on 01/08/17 06: 18; Admin Dose 40 MG; Start 01/05/17 at 06:30 Lorazepam 1 mg 1 mg Q4H PRN IV agitation Last administered on 01/05/17 12:10; Admin Dose 1 MG; Start 01/05/17 at 07:00 Fentanyl 100 ml @ 2.5 mls/hr TITRATE IV Last administered on 01/07/17 21:54; Admin Dose 5 MLS/HR; Start 01/05/17 at 12:25 Piperacillin Sod/ Tazobactam Sod (Zosyn 2.25gm/ 50ml (Pmx)) 50 ml @ 100 mls/hr Q8 IVPB Last administered on 01/08/17 06:16; Admin Dose 100 MLS/HR; Start at 22:00 Hydralazine HCl 10 mg 10 mg Q2H PRN IV SBP >170 Last administered on 01/06/17 03:21; Admin Dose 10 MG; Start 01/06/17 at 03:00 Vancomycin HCl 250 ml @ 125 mls/hr Q48H IVPB Last administered on 01/08/17 10 :16; Admin Dose 125 MLS/HR; Start 01/06/17 at 10:00; Stop 01/08/17 at 12:00 Fluconazole/ Sodium Chloride 50 ml @ 50 mls/hr Q24H IVPB Last administered on 13:14; Admin Dose 50 MLS/HR; Start 01/07/17 at 12:00 Dextrose/Sodium Chloride 1,000 ml @ 50 mls/hr Q20H IV Last administered on 10:17; Admin Dose 50 MLS/HR; Start 01/07/17 at 20:00 Vancomycin HCl (Vancocin) 250 ml @ 125 mls/hr Q36H IVPB ; Start 01/09/17 at 22: 00 NANCY HULL NP Jan 08, 2017 11:48
[2017-01-08 12:18] LABS: HEMATOCRIT 23.3 % (37.0-47.0); HEMOGLOBIN 7.4 g/dl (12.0-16.0)
[2017-01-08] MEDS: FLUCONAZOLE 100 MG/NS (PMX) 50 ML IVPB SCH (12:56)
[2017-01-08] MEDS: FENTAnyl (DRIP) 1000 mcg/100mL 100 ML IV SCH (15:27)
--- NOTE | 2017-01-08 17:16 | PN ---
Date/Time of Note Date/Time of Note DATE: 01/08/17 TIME: 17:13 Assessment/Plan VTE Prophylaxis VTE Prophylaxis Intervention: contraindicated VTE Contraindication Reason: bleeding Lines/Catheters IV Catheter Type (from Nrs): A Line Urinary Cath still in place: Yes Reason Cath still needed: urinary retention Assessment/Plan Assessment/Plan Assessment * Acute respiratory failure managed by pulmonary * Anemia acute CT scan Intraabdominal hemorrhage Very large mixed density acute subcapsular hematoma of the liver with moderate blood seen throughout the abdomen and pelvis. Right lower lobe atelectasis or infiltrate and small bilateral effusions. 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 Extensive intra and extrahepatic portal vein thrombosis. . Multiple ill-defined focal liver lesions in the right hepatic lobe. R/O infectious vs malignancy Post liver biopsy/pathology pending * Portal vein thrombosis * . Plan * monitor hemoglobin and hematocrit and transfuse 1 unit PRBC if HGB <7.5 ,2 units PRBC hemoglobin less than 7 * awaiting biopsy result * Continue present management * trend liver enzymes ,elevation of ast,alt could be attributed to subcapsular hematoma * case discussed with Dr Raphael * Further orders will depend on clinical course Subjective 24 Hr Interval Summary Free Text/Dictation * Course reviewed with RN * Patient seen and examined * latest hemoglobin 7.4 Exam/Review of Systems Vital Signs Vitals Vital Signs Date Time Temp Pulse Resp B/P Pulse Ox O2 Delivery O2 Flow Rate FiO2 01/08/17 16:00 79 01/08/17 16:00 98.0 17 131/73 100 Mechanical Ventilator 01/08/17 15:06 40 01/04/17 20:06 6.0 Intake and Output 01/07/17 01/07/17 01/08/17 15:00 23:00 07:00 Intake Total 790 ml 890 ml 752.5 ml Output Total 510 ml 540 ml 630 ml Balance 280 ml 350 ml 122.5 ml Exam Constitutional: alert ENMT: intubated Neck: non-tender, supple Respiratory: clear to auscultation, diminished breath sounds, normal air movement Cardiovascular: nl pulses, regular rate and rhythm Gastrointestinal: bowel sounds, distended, soft, No rebound or guarding Musculoskeletal: nl extremities to inspection, nl gait and stance Extremities: normal pulses Skin: nl turgor, No rash or lesions Results Result Diagram: 01/08/17 1200 01/08/17 0345 Results 24 hrs Laboratory Tests Test 01/08/17 03:45 01/08/17 07:00 01/08/17 09:05 01/08/17 11:00 White Blood Count 9.4 # Red Blood Count 2.14 L Hemoglobin 6.6 *L Hematocrit 20.2 L Mean Corpuscular Volume 94.4 Mean Corpuscular Hemoglobin 30.8 Mean Corpuscular Hemoglobin Concent 32.7 Red Cell Distribution Width 16.8 H Platelet Count 185 Mean Platelet Volume 11.0 H Neutrophils % 77.0 Lymphocytes % 10.0 L Monocytes % 9.2 Eosinophils % 1.3 Basophils % 0.1 Nucleated Red Blood Cells % 3.4 H Neutrophils # 7.3 Lymphocytes # 0.9 Monocytes # 0.9 Eosinophils # 0.1 Basophils # 0.0 Nucleated Red Blood Cells # 0.3 H Sodium Level 141 Potassium Level 3.3 L Chloride Level 107 Carbon Dioxide Level 26 Anion Gap 11 # Blood Urea Nitrogen 26 H Creatinine 1.65 H Glucose Level 90 Calcium Level 8.2 L Phosphorus Level 3.8 Magnesium Level 2.0 Total Bilirubin 0.4 Direct Bilirubin 0.00 Indirect Bilirubin 0.4 Aspartate Amino Transf (AST/SGOT) 214 H Alanine Aminotransferase (ALT/SGPT) 155 H Alkaline Phosphatase 179 H Blood Gas Specimen Source Blood arterial Blood arterial Arterial Blood Date Drawn 01/08/2017 7:45:00 AM 01/08/2017 10:50:02 AM Arterial Blood pH (Temp corrected) 7.483 H 7.426 Arterial Blood pCO2 (Temp correct) 32.1 L 33.2 L Arterial Blood pO2 (Temp corrected) 108.6 H 87.2 Arterial Blood HCO3 23.5 21.3 L Arterial Blood Base Excess 0.2 -2.6 Arterial Blood Oxygen Saturation 97.5 95.8 [place] Test N/A N/A Arterial Blood Gas Puncture Site A-Line A-Line Arterial Blood Carboxyhemoglobin 0.1 0.3 Arterial Blood Methemoglobin 0.5 0.5 Blood Gas A-a O2 Differential 139.7 H 159.8 H Oxyhemoglobin Percent 96.9 95.0 Total Hemoglobin 7.4 L 8.1 L Blood Gas Temperature 37.0 37.0 Blood Gas Respiration Rate 14.0 Blood Gas Actual Respiration Rate 27 34 Blood Gas Modality VENT - AC VENT - CPAP FiO2 40.0 40.0 Blood Gas Tidal Volume 500.0 Blood Gas Low PEEP Setting 5.0 5.0 Blood Gas Notified Whom JLD JLD Blood Gas Notified Time 01/08/2017 7:55:00 AM 01/08/2017 11:06:52 AM Lab Scanned Report REFERENCE LAB Blood Gas Pressure Support 10 Test 01/08/17 12:00 Hemoglobin 7.4 L Hematocrit 23.3 L Medications Medications Current Medications Ondansetron HCl (Zofran Inj) 4 mg Q6H PRN IV NAUSEA AND/OR VOMITING Last administered on 01/05/17 02:20; Admin Dose 4 MG; Start 12/20/16 at 07:30 Acetaminophen (Tylenol Tab) 650 mg Q6H PRN PO PAIN LEVEL 1-3 OR FEVER Last administered on 12/30/16 12:40; Admin Dose 650 MG; Start 12/20/16 at 07:30 Morphine Sulfate (morphine) 4 mg Q4H PRN IV SEVERE PAIN LEVEL 7-10 Last administered on 01/04/17 06:27; Admin Dose 4 MG; Start 12/20/16 at 07:30 Amlodipine Besylate (Norvasc) 5 mg DAILY PO Last administered on 01/03/17 09: 01; Admin Dose 5 MG; Start 12/21/16 at 09:00 Acetaminophen/ Hydrocodone Bitart ([place] (5/325)) 1 tab Q6H PRN PO PAIN LEVEL 7 -10 Last administered on 01/03/17 21:54; Admin Dose 1 TAB; Start 12/30/16 at 18 :00 Hydromorphone HCl (Dilaudid) 1 mg Q4H PRN IV SEVERE PAIN LEVEL 7-10 Last administered on 01/05/17 02:21; Admin Dose 1 MG; Start 01/02/17 at 17:45 Docusate Sodium (Colace) 100 mg BID PO Last administered on 01/03/17 21:54; Admin Dose 100 MG; Start 01/03/17 at 21:00 Senna (Senokot) 1 tab BID PO Last administered on 01/03/17 21:54; Admin Dose 1 TAB; Start 01/03/17 at 21:00 Polyethylene Glycol 8.5 gm 8.5 gm DAILY PO Last administered on 01/03/17 17:36 ; Admin Dose 8.5 GM; Start 01/03/17 at 15:30 Levetiracetam 100 ml @ 400 mls/hr Q12 IVPB Last administered on 01/08/17 08: 37; Admin Dose 400 MLS/HR; Start 01/04/17 at 11:00 Norepinephrine/ Dextrose (Levophed/D5W) 500 ml @ 1.87 mls/hr TITRATE IV Last administered on 01/05/17 09:13; Admin Dose 28.12 MLS/HR; Start 01/04/17 at 11: 00 Lorazepam (Ativan) 1 mg Q1H PRN IV Seizures; Start 01/04/17 at 19:30 IV Flush (NS 10 ml) 10 ml PRN PRN IV FLUSH LINE; Start 01/04/17 at 20:00 Morphine Sulfate (morphine) 2 mg Q4H PRN IV pain Last administered on 01:13; Admin Dose 2 MG; Start 01/05/17 at 01:30 Pantoprazole (Protonix Iv) 40 mg DAILY@06 IV Last administered on 01/08/17 06: 18; Admin Dose 40 MG; Start 01/05/17 at 06:30 Lorazepam 1 mg 1 mg Q4H PRN IV agitation Last administered on 01/05/17 12:10; Admin Dose 1 MG; Start 01/05/17 at 07:00 Fentanyl 100 ml @ 2.5 mls/hr TITRATE IV Last administered on 01/08/17 15:27; Admin Dose 5 MLS/HR; Start 01/05/17 at 12:25 Piperacillin Sod/ Tazobactam Sod (Zosyn 2.25gm/ 50ml (Pmx)) 50 ml @ 100 mls/hr Q8 IVPB Last administered on 01/08/17 15:24; Admin Dose 100 MLS/HR; Start at 22:00 Hydralazine HCl 10 mg 10 mg Q2H PRN IV SBP >170 Last administered on 01/06/17 03:21; Admin Dose 10 MG; Start 01/06/17 at 03:00 Fluconazole/ Sodium Chloride 50 ml @ 50 mls/hr Q24H IVPB Last administered on 12:56; Admin Dose 50 MLS/HR; Start 01/07/17 at 12:00 Dextrose/Sodium Chloride 1,000 ml @ 50 mls/hr Q20H IV Last administered on t 10:17; Admin Dose 50 MLS/HR; Start 01/07/17 at 20:00 Vancomycin HCl (Vancocin) 250 ml @ 125 mls/hr Q36H IVPB ; Start 01/09/17 at 22: 00 NARENDRA FINLEY NP Jan 08, 2017 17:16
--- NOTE | 2017-01-08 17:18 | RADRPT ---
PROCEDURE: XR Abdomen. CLINICAL INDICATION: Check feeding tube position. TECHNIQUE: AP supine abdomen x-ray. COMPARISON: None. FINDINGS: The bowel gas pattern is normal with no evidence of obstruction. There is a nasogastric feeding tube with the tip in the first part of the duodenum. There are no abnormal calcifications overlying the urinary tracts. The osseus structures are unremarkable. IMPRESSION: 1. Nasogastric feeding tube with the tip in the first part of the duodenum. This should be advance d approximately 4 cm. 2. No evidence of bowel obstruction. RPTAT: QQ .Jer Cotto MD, Date Time Electronically viewed and signed by .Jer Cotto MD, on 01/08/2017 17:17 .R/
--- NOTE | 2017-01-08 20:08 | RADRPT ---
PROCEDURE: XR Abdomen CLINICAL INDICATION: Dobbhoff adjustment, confirm placement TECHNIQUE: An AP supine radiograph of the abdomen was submitted. COMPARISON: Study done 2.5 hours earlier on the same date FINDINGS: The Dobbhoff catheter tip appears to lie within the distal second portion of the duodenum. This has advanced since the previous. A Lau catheter is again seen to be in place. Coils project to the d ome of the right lobe of the liver. The bowel gas pattern remains nonspecific. There is again increased density seen through the pelvis that could represent a distended bladder de spite the presence of the Lau catheter. No organomegaly or discrete mass is identified. No pathological calcification is identified. The osseous elements appear unremarkable. IMPRESSION: 1. The Dobbhoff catheter the tip appears to have advanced into the second portion of the duodenum. 2. The Lau catheter remains in place 3. Metallic coils project to the cyst dome of the right lobe of the liver, unchanged. 4. Nonspecific bowel gas pattern 5. There is again increased density within the pelvis possibly representing a distended bladder negrita pite the presence of the Lau catheter. Physician Stephy Date Time Electronically viewed and signed by Physician Stephy on 01/08/2017 20:08 /
[2017-01-09] VITALS (36 sets, daily range): BP systolic 100–188; BP diastolic 61–101; PULSE 59–102; RESP 14–28
[2017-01-09] MEDS: IPRATROPIUM (HFA) 12.9 GM INHALER INH SCH ×3 (01:49→13:20)
[2017-01-09] MEDS: LEVALBUTEROL (HFA) 15 GM INHALER INH SCH ×3 (01:49→13:20)
--- NOTE | 2017-01-09 04:30 | RADRPT ---
PROCEDURE: XR Abdomen. CLINICAL INDICATION: Abdominal pain. TECHNIQUE: 2 frontal views of the abdomen. COMPARISON: 01/08/2017. FINDINGS: There is a nasogastric tube extending to the stomach. There are sutures within the right upper quad rant. The bowel gas pattern is unremarkable. There is no bowel obstruction or free air. There is no organomegaly. There is no abnormal calcification. The osseous structures are unremarkable. IMPRESSION: Nasogastric tube in place. .Cristobal Grey MD, MD Date Time Electronically viewed and signed by .Cristobal Grey MD, on 01/09/2017 04:30 .T/
[2017-01-09 06:07] LABS: ADD SCAN DIFF NO
[2017-01-09 06:13] LABS: BASOPHILS % 0.1 % (0.0-2.0); EOSINOPHILS # 0.2 10^3/ul (0.0-0.5); EOSINOPHILS % 2.1 % (0.0-7.0); HEMATOCRIT 26.9 % (37.0-47.0); HEMOGLOBIN 8.4 g/dl (12.0-16.0); LYMPHOCYTES # 0.9 10^3/ul (0.8-2.9); LYMPHOCYTES % 9.4 % (15.0-51.0); MEAN CORPUSCULAR HEMOGLOBIN 30.2 pg (29.0-33.0); MEAN CORPUSCULAR HGB CONC 31.2 g/dl (32.0-37.0); MEAN CORPUSCULAR VOLUME 96.8 fl (82.0-101.0); MEAN PLATELET VOLUME 10.7 fl (7.4-10.4); MONOCYTES % 9.8 % (0.0-11.0); NEUTROPHIL # 7.5 10^3/ul (1.6-7.5); NEUTROPHILS % 75.5 % (39.0-77.0); NUCLEATED RED BLOOD CELLS # 0.1 10^3/ul (0.0-0.0); NUCLEATED RED BLOOD CELLS% 1.3 /100WBC (0.0-0.0); PLATELET COUNT 215 10^3/UL (140-415); RED BLOOD COUNT 2.78 10^6/ul (4.20-5.40); RED CELL DISTRIBUTION WIDTH 18.4 % (11.5-14.5); WHITE BLOOD COUNT 9.9 10^3/ul (4.8-10.8)
[2017-01-09 06:47] LABS: CALCIUM 8.5 mg/dl (8.4-10.2); CREATININE 1.07 mg/dl (0.44-1.00); MAGNESIUM 1.8 mg/dl (1.7-2.5); PHOSPHORUS 2.9 mg/dl (2.5-4.9); POTASSIUM 3.4 mmol/L (3.5-5.1)
[2017-01-09] MEDS: PIPER-TAZO 2.25 GM (PMX) 50 ML IVPB SCH (06:58)
[2017-01-09] MEDS: PANTOPRAZOLE 40 MG INJ IV SCH (06:58)
[2017-01-09] MEDS: DEXTROSE 5%-0.45% NACL 1,000 ML IV SCH (06:58)
--- NOTE | 2017-01-09 06:58 | RADRPT ---
PROCEDURE: 1. Celiac angiogram 2. Common hepatic angiogram. 3. Right hepatic artery angiogram first, second, third order 4. Coil embolization right posterior hepatic artery superior division segmental branch. 5. Coil embolization right posterior hepatic artery medial division segmental branch. 6. Gelfoam embolization. 7. Post embolization hepatic angiogram. 8. Limited right common femoral angiogram. CLINICAL INDICATION: 51-year-old female history of portal vein thrombosis to the status post biopsy of a hepatic mass. She now presents with large subcapsular hematoma and hypotension. Conservative management was attempted with transfusion of blood products; however the patient remains hypotensiv e with evidence of continued bleeding TECHNIQUE: After informed consent was obtained from the family, the patient was brought emergently to the receiver/laborer. The right groin was prepped and draped in standard sterile fashion. 1% lidocaine was used for local anesthesia. Right common femoral artery was accessed with a micropuncture needl e. Tract was serially dilated, and a 6-Tajik vascular sheath was left in place. Through this, a R C1 catheter was advanced over Smith wire, and the celiac trunk was engaged. Celiac angiogram with portal venous phase imaging was obtained. Next, a 5-Tajik catheter was advanced over the glide wir e, and proper hepatic artery angiogram was obtained. Next, a 3-Tajik catheter was coaxially advanc ed through the 5-Tajik catheter over an .016 [place] wire. Branches of the posterior right hepatic artery were subselective and angiogram to perform in the second and third order. Selective coil emb olization was performed of the superior right posterior hepatic artery division using 1 2 mm coil, and 2 3 mm coils. Next, a middle division of the a.m. posterior right hepatic artery with sub selec ryley angiogram was performed. This vessel as well embolize using the 3 3 mm coils. angiogram was pe rformed through the 5-Tajik catheter demonstrating a persistent area of extravasation and persisten t flow within the vessels that had just been coil embolized. Therefore, these vessels were then re- selected with the 3-Tajik catheter, and 1 cc of Gelfoam was reinfused into these vessels. angiogra m was performed to the 5-Tajik catheter demonstrate no further extravasation. A limited angiogram was performed of the right common femoral artery through this sheath to determine suitability for pe rcutaneous closure. However, no 6-Tajik AngioSeal device was available. Therefore, the catheter w as secured to the skin, and attached to a arterial line. COMPARISON: None FINDINGS: 1. Initial celiac and selective right hepatic artery angiograms demonstrate intermittent active sub capsular bleeding from branch vessels of the posterior division of the right hepatic artery. The re maining hepatic arteries are normal in appearance and without hemodynamically significant stenosis. On the delayed images, the portal vein is noted to be thrombosed. 2. Selective coil embolization of to branch vessels of the posterior right hepatic artery. This wa s followed by a small amount of Gelfoam to expedite thrombosis of these branches. The final angiogr am demonstrates complete occlusion of the segmental branches and no further bleeding/extravasation.. 3. There is preserved flow in the adjacent normal branches. 4. Right common femoral artery is normal in appearance and there is normal anatomy for percutaneous closure; however no 6-Tajik AngioSeal was available. IMPRESSION: Active subcapsular bleeding from branch vessels off the right posterior hepatic artery. Superselect campos coil and Gelfoam embolization was performed as described above. On the final angiogram, there i s no further active bleeding or extravasation. Of note, the patient's portal vein is thrombosed. RPTAT: HH .Vasquez Holliday MD, Date Time Electronically viewed and signed by .Vasquez Holliday MD, on 01/07/2017 17:06 .W/
[2017-01-09] MEDS ORDERED: POTASSIUM CHLORIDE 250 ML IVPB ONE (08:00)
[2017-01-09] MEDS ORDERED: FUROSEMIDE 20 MG INJ IV ONE (08:00)
--- NOTE | 2017-01-09 08:11 | PN ---
Date/Time of Note Date/Time of Note DATE: 01/09/17 TIME: 08:09 Assessment/Plan VTE Prophylaxis VTE Prophylaxis Intervention: ambulation Lines/Catheters IV [facility] A Line Urinary Cath still in place: Yes Reason Cath still needed: urinary retention Assessment/Plan Chief Complaint/Hosp Course 1. Nonoliguric acute kidney injury with previously normal baseline creatinine. Etiology secondary to acute tubular necrosis due to severe anemia, ischemic hypoperfusion, shock. - Patient's renal function is improving. - continue current treatment plan, supportive care, renally dose all medications. 2. Anemia secondary to intra-abdominal bleed. The patient had a liver hematoma , capsular. The patient is status post multiple blood products. -monitor h/h, transfuse as needed 3. Volume overload. Chest x-ray shows pulmonary congestion. Will give 1 dose of Lasix 20 mg IV. Discontinue IV fluids once tube feeding starts. 3. Mineral bone disease. Will continue to monitor calcium, phosphorus levels. No need for phosphate binders at this time. 4. hypokalemia. replace K 5. Sepsis. The patient is status post shock, currently off pressor support. Continue current antibiotic regimen. Continue IV fluids. Will decrease rate. 6. Ventilator dependent respiratory failure. Vent settings have been reviewed. ABG has been reviewed. Continue to monitor. 7. Portal vein thrombosis. 8. Multiple liver lesions status post biopsy. Findings consistent with possible lymphoplasmacytic involvement will continue to monitor. Follow up with hematology. 9. Uterine mass. Followup with Gynecology/Oncology. Status post code arrest. Please note I spent over 45 minutes of critical care time with this patient. Problems: Subjective 24 Hr Interval Summary Free Text/Dictation Patient is stable. Undergoing CPAP trial this a.m. No other acute events noted overnight. Urinary output has been excellent. Exam/Review of Systems Vital Signs Vitals Vital Signs Date Time Temp Pulse Resp B/P Pulse Ox O2 Delivery O2 Flow Rate FiO2 01/09/17 07:00 65 15 118/86 100 Mechanical Ventilator 01/09/17 05:41 35 01/09/17 04:00 97.8 Intake and Output 01/08/17 01/08/17 01/09/17 15:00 23:00 07:00 Intake Total 1087.5 ml 620 ml 490 ml Output Total 660 ml 315 ml Balance 427.5 ml 305 ml 490 ml Exam EENT: Head is normocephalic. Pupils are reactive to light. NECK: Supple. HEART: Regular rate. LUNGS: Show diminished breath sounds at base. ABDOMEN: Soft, nontender to palpation. No rebound or guarding. EXTREMITIES: Negative for clubbing, cyanosis, no edema. DERMATOLOGIC: No rashes. MUSCULOSKELETAL: No joint effusions. NEUROLOGIC: No change in exam. Results Result Diagram: 01/09/17 0500 01/09/17 0500 Results 24 hrs Laboratory Tests Test 01/08/17 09:05 01/08/17 09:32 01/08/17 11:00 01/08/17 12:00 Lab Scanned Report REFERENCE LAB Stool Occult Blood POSITIVE Blood Gas Specimen Source Blood arterial Arterial Blood Date Drawn 01/08/2017 10:50:02 AM Arterial Blood pH (Temp corrected) 7.426 Arterial Blood pCO2 (Temp correct) 33.2 L Arterial Blood pO2 (Temp corrected) 87.2 Arterial Blood HCO3 21.3 L Arterial Blood Base Excess -2.6 Arterial Blood Oxygen Saturation 95.8 Westley Test N/A Arterial Blood Gas Puncture Site A-Line Arterial Blood Carboxyhemoglobin 0.3 Arterial Blood Methemoglobin 0.5 Blood Gas A-a O2 Differential 159.8 H Oxyhemoglobin Percent 95.0 Total Hemoglobin 8.1 L Blood Gas Temperature 37.0 Blood Gas Actual Respiration Rate 34 Blood Gas Modality VENT - CPAP FiO2 40.0 Blood Gas Low PEEP Setting 5.0 Blood Gas Pressure Support 10 Blood Gas Notified Whom JLD Blood Gas Notified Time 01/08/2017 11:06:52 AM Hemoglobin 7.4 L Hematocrit 23.3 L Test 01/09/17 04:42 01/09/17 05:00 Lab Scanned Report BLOOD TRANSFUSION White Blood Count 9.9 Red Blood Count 2.78 #L Hemoglobin 8.4 L Hematocrit 26.9 L Mean Corpuscular Volume 96.8 Mean Corpuscular Hemoglobin 30.2 Mean Corpuscular Hemoglobin Concent 31.2 L Red Cell Distribution Width 18.4 H Platelet Count 215 Mean Platelet Volume 10.7 H Neutrophils % 75.5 Lymphocytes % 9.4 L Monocytes % 9.8 Eosinophils % 2.1 Basophils % 0.1 Nucleated Red Blood Cells % 1.3 H Neutrophils # 7.5 Lymphocytes # 0.9 Monocytes # 1.0 H Eosinophils # 0.2 Basophils # 0.0 Nucleated Red Blood Cells # 0.1 H Sodium Level 144 Potassium Level 3.4 L Chloride Level 111 H Carbon Dioxide Level 28 Anion Gap 8 Blood Urea Nitrogen 18 Creatinine 1.07 H Glucose Level 95 Calcium Level 8.5 Phosphorus Level 2.9 Magnesium Level 1.8 Medications Medications Current Medications Ondansetron HCl (Zofran Inj) 4 mg Q6H PRN IV NAUSEA AND/OR VOMITING Last administered on 01/05/17 02:20; Admin Dose 4 MG; Start 12/20/16 at 07:30 Acetaminophen (Tylenol Tab) 650 mg Q6H PRN PO PAIN LEVEL 1-3 OR FEVER Last administered on 12/30/16 12:40; Admin Dose 650 MG; Start 12/20/16 at 07:30 Morphine Sulfate (morphine) 4 mg Q4H PRN IV SEVERE PAIN LEVEL 7-10 Last administered on 01/04/17 06:27; Admin Dose 4 MG; Start 12/20/16 at 07:30 Amlodipine Besylate (Norvasc) 5 mg DAILY PO Last administered on 01/03/17 09: 01; Admin Dose 5 MG; Start 12/21/16 at 09:00 Acetaminophen/ Hydrocodone Bitart ([place] (5/325)) 1 tab Q6H PRN PO PAIN LEVEL 7 -10 Last administered on 01/03/17 21:54; Admin Dose 1 TAB; Start 12/30/16 at 18 :00 Hydromorphone HCl (Dilaudid) 1 mg Q4H PRN IV SEVERE PAIN LEVEL 7-10 Last administered on 01/05/17 02:21; Admin Dose 1 MG; Start 01/02/17 at 17:45 Docusate Sodium (Colace) 100 mg BID PO Last administered on 01/03/17 21:54; Admin Dose 100 MG; Start 01/03/17 at 21:00 Senna (Senokot) 1 tab BID PO Last administered on 01/03/17 21:54; Admin Dose 1 TAB; Start 01/03/17 at 21:00 Polyethylene Glycol 8.5 gm 8.5 gm DAILY PO Last administered on 01/03/17 17:36 ; Admin Dose 8.5 GM; Start 01/03/17 at 15:30 Levetiracetam 100 ml @ 400 mls/hr Q12 IVPB Last administered on 01/08/17 20: 37; Admin Dose 400 MLS/HR; Start 01/04/17 at 11:00 Norepinephrine/ Dextrose (Levophed/D5W) 500 ml @ 1.87 mls/hr TITRATE IV Last administered on 01/05/17 09:13; Admin Dose 28.12 MLS/HR; Start 01/04/17 at 11: 00 Lorazepam (Ativan) 1 mg Q1H PRN IV Seizures; Start 01/04/17 at 19:30 IV Flush (NS 10 ml) 10 ml PRN PRN IV FLUSH LINE; Start 01/04/17 at 20:00 Morphine Sulfate (morphine) 2 mg Q4H PRN IV pain Last administered on 01:13; Admin Dose 2 MG; Start 01/05/17 at 01:30 Pantoprazole (Protonix Iv) 40 mg DAILY@06 IV Last administered on 01/09/17 06: 58; Admin Dose 40 MG; Start 01/05/17 at 06:30 Lorazepam 1 mg 1 mg Q4H PRN IV agitation Last administered on 01/05/17 12:10; Admin Dose 1 MG; Start 01/05/17 at 07:00 Fentanyl 100 ml @ 2.5 mls/hr TITRATE IV Last administered on 01/08/17 15:27; Admin Dose 5 MLS/HR; Start 01/05/17 at 12:25 Piperacillin Sod/ Tazobactam Sod (Zosyn 2.25gm/ 50ml (Pmx)) 50 ml @ 100 mls/hr Q8 IVPB Last administered on 01/09/17 06:58; Admin Dose 100 MLS/HR; Start at 22:00 Hydralazine HCl 10 mg 10 mg Q2H PRN IV SBP >170 Last administered on 01/06/17 03:21; Admin Dose 10 MG; Start 01/06/17 at 03:00 Fluconazole/ Sodium Chloride 50 ml @ 50 mls/hr Q24H IVPB Last administered on 12:56; Admin Dose 50 MLS/HR; Start 01/07/17 at 12:00 Dextrose/Sodium Chloride 1,000 ml @ 50 mls/hr Q20H IV Last administered on 6/ 29/17at 06:58; Admin Dose 50 MLS/HR; Start 01/07/17 at 20:00 Vancomycin HCl 250 ml @ 125 mls/hr Q36H IVPB ; Start 01/09/17 at 22:00 Potassium Chloride (KCl 40 MEQ/250 ML NS) 250 ml @ 62.5 mls/hr ONCE ONCE IVPB ; Start 01/09/17 at 08:00; Stop 01/09/17 at 11:59 MILLY DAIGLE DO Jan 09, 2017 08:11
--- NOTE | 2017-01-09 08:40 | CONS ---
Date/Time of Note Date/Time of Note DATE: 01/09/17 TIME: 08:37 Assessment/Plan Assessment/Plan Additional Assessment/Plan Ventilator setting; AC of 14, tidal volume 500, PEEP of 5, 45% FiO2. Patient currently on fentanyl drip at 50 mics per hour. Assessment recommendations; 1. Patient admitted for abdominal pain discovered to have multiple hepatic lesions which were consistent with hepatic abscesses with bilateral pneumonia likely from hematogenous spread to the lungs. 2. Patient developed portal vein thrombosis was started on anticoagulation then developed massive hepatic subcapsular hematoma leading to respiratory failure requiring intubation. Patient status post multiple packed RBC and FFP transfusion. Hematocrit has been stable since yesterday. 3. Acute renal failure, with normalization of renal function. 4. There is been marked overall interval improvement in the patient's condition. Discontinue fentanyl. Once the patient is off fentanyl drip for at least 45 minutes she will be assessed for weaning from ventilator. Meanwhile continue current supportive care. Consultation Date/Type/Reason Admit Date/Time Dec 19, 2016 at 21:34 Initial Consult Date 12/20/16 Type of Consultation: Pulmonary/critical care Referring Provider: KAHLIL MARTEL 24 HR Interval Summary Free Text/Dictation Patient condition is critical but stable patient despite being on sedation is completely awake alert. Denies any shortness breath, abdominal pain. Has remained hemodynamically stable. General exam; middle-aged woman, orally intubated, awake alert. Currently in no distress. Exam/Review of Systems Vital Signs Vitals Vital Signs Date Time Temp Pulse Resp B/P Pulse Ox O2 Delivery O2 Flow Rate FiO2 01/09/17 07:00 65 15 118/86 100 Mechanical Ventilator 01/09/17 05:41 35 01/09/17 04:00 97.8 Intake and Output 01/08/17 01/08/17 01/09/17 15:00 23:00 07:00 Intake Total 1087.5 ml 620 ml 490 ml Output Total 660 ml 315 ml Balance 427.5 ml 305 ml 490 ml Exam HEENT exam; supple neck, no JVD. No lymphadenopathy. Midline trachea. No thyromegaly. Orally intubated. Patient has fair dentition. Pupils are small bilaterally. Chest exam; diminished but clear breath sound. S1-S2 audible, no murmurs. Regular rhythm. Abdomen exam; soft, nontender. No organomegaly. Bowel sounds audible. Extremity exam; no peripheral edema. Pulses 1+ bilaterally. CLOTH CARRIER exam; no focal deficit. Results Result Diagram: 01/09/17 0500 01/09/17 0500 Results 24 hrs Laboratory Tests Test 01/08/17 09:05 01/08/17 09:32 01/08/17 11:00 01/08/17 12:00 Lab Scanned Report REFERENCE LAB Stool Occult Blood POSITIVE Blood Gas Specimen Source Blood arterial Arterial Blood Date Drawn 01/08/2017 10:50:02 AM Arterial Blood pH (Temp corrected) 7.426 Arterial Blood pCO2 (Temp correct) 33.2 L Arterial Blood pO2 (Temp corrected) 87.2 Arterial Blood HCO3 21.3 L Arterial Blood Base Excess -2.6 Arterial Blood Oxygen Saturation 95.8 [place] Test N/A Arterial Blood Gas Puncture Site A-Line Arterial Blood Carboxyhemoglobin 0.3 Arterial Blood Methemoglobin 0.5 Blood Gas A-a O2 Differential 159.8 H Oxyhemoglobin Percent 95.0 Total Hemoglobin 8.1 L Blood Gas Temperature 37.0 Blood Gas Actual Respiration Rate 34 Blood Gas Modality VENT - CPAP FiO2 40.0 Blood Gas Low PEEP Setting 5.0 Blood Gas Pressure Support 10 Blood Gas Notified Whom JLD Blood Gas Notified Time 01/08/2017 11:06:52 AM Hemoglobin 7.4 L Hematocrit 23.3 L Test 01/09/17 04:42 01/09/17 05:00 Lab Scanned Report BLOOD TRANSFUSION White Blood Count 9.9 Red Blood Count 2.78 #L Hemoglobin 8.4 L Hematocrit 26.9 L Mean Corpuscular Volume 96.8 Mean Corpuscular Hemoglobin 30.2 Mean Corpuscular Hemoglobin Concent 31.2 L Red Cell Distribution Width 18.4 H Platelet Count 215 Mean Platelet Volume 10.7 H Neutrophils % 75.5 Lymphocytes % 9.4 L Monocytes % 9.8 Eosinophils % 2.1 Basophils % 0.1 Nucleated Red Blood Cells % 1.3 H Neutrophils # 7.5 Lymphocytes # 0.9 Monocytes # 1.0 H Eosinophils # 0.2 Basophils # 0.0 Nucleated Red Blood Cells # 0.1 H Sodium Level 144 Potassium Level 3.4 L Chloride Level 111 H Carbon Dioxide Level 28 Anion Gap 8 Blood Urea Nitrogen 18 Creatinine 1.07 H Glucose Level 95 Calcium Level 8.5 Phosphorus Level 2.9 Magnesium Level 1.8 Medications Medications Current Medications Ondansetron HCl (Zofran Inj) 4 mg Q6H PRN IV NAUSEA AND/OR VOMITING Last administered on 01/05/17 02:20; Admin Dose 4 MG; Start 12/20/16 at 07:30 Acetaminophen (Tylenol Tab) 650 mg Q6H PRN PO PAIN LEVEL 1-3 OR FEVER Last administered on 12/30/16 12:40; Admin Dose 650 MG; Start 12/20/16 at 07:30 Morphine Sulfate (morphine) 4 mg Q4H PRN IV SEVERE PAIN LEVEL 7-10 Last administered on 01/04/17 06:27; Admin Dose 4 MG; Start 12/20/16 at 07:30 Amlodipine Besylate (Norvasc) 5 mg DAILY PO Last administered on 01/03/17 09: 01; Admin Dose 5 MG; Start 12/21/16 at 09:00 Acetaminophen/ Hydrocodone Bitart ([place] (5/325)) 1 tab Q6H PRN PO PAIN LEVEL 7 -10 Last administered on 01/03/17 21:54; Admin Dose 1 TAB; Start 12/30/16 at 18 :00 Hydromorphone HCl (Dilaudid) 1 mg Q4H PRN IV SEVERE PAIN LEVEL 7-10 Last administered on 01/05/17 02:21; Admin Dose 1 MG; Start 01/02/17 at 17:45 Docusate Sodium (Colace) 100 mg BID PO Last administered on 01/03/17 21:54; Admin Dose 100 MG; Start 01/03/17 at 21:00 Senna (Senokot) 1 tab BID PO Last administered on 01/03/17 21:54; Admin Dose 1 TAB; Start 01/03/17 at 21:00 Polyethylene Glycol 8.5 gm 8.5 gm DAILY PO Last administered on 01/03/17 17:36 ; Admin Dose 8.5 GM; Start 01/03/17 at 15:30 Levetiracetam 100 ml @ 400 mls/hr Q12 IVPB Last administered on 01/08/17 20: 37; Admin Dose 400 MLS/HR; Start 01/04/17 at 11:00 Norepinephrine/ Dextrose (Levophed/D5W) 500 ml @ 1.87 mls/hr TITRATE IV Last administered on 01/05/17 09:13; Admin Dose 28.12 MLS/HR; Start 01/04/17 at 11: 00 Lorazepam (Ativan) 1 mg Q1H PRN IV Seizures; Start 01/04/17 at 19:30 IV Flush (NS 10 ml) 10 ml PRN PRN IV FLUSH LINE; Start 01/04/17 at 20:00 Morphine Sulfate (morphine) 2 mg Q4H PRN IV pain Last administered on 01:13; Admin Dose 2 MG; Start 01/05/17 at 01:30 Pantoprazole (Protonix Iv) 40 mg DAILY@06 IV Last administered on 01/09/17 06: 58; Admin Dose 40 MG; Start 01/05/17 at 06:30 Lorazepam 1 mg 1 mg Q4H PRN IV agitation Last administered on 01/05/17 12:10; Admin Dose 1 MG; Start 01/05/17 at 07:00 Fentanyl 100 ml @ 2.5 mls/hr TITRATE IV Last administered on 01/08/17 15:27; Admin Dose 5 MLS/HR; Start 01/05/17 at 12:25 Piperacillin Sod/ Tazobactam Sod (Zosyn 2.25gm/ 50ml (Pmx)) 50 ml @ 100 mls/hr Q8 IVPB Last administered on 01/09/17 06:58; Admin Dose 100 MLS/HR; Start at 22:00 Hydralazine HCl 10 mg 10 mg Q2H PRN IV SBP >170 Last administered on 01/06/17 03:21; Admin Dose 10 MG; Start 01/06/17 at 03:00 Fluconazole/ Sodium Chloride 50 ml @ 50 mls/hr Q24H IVPB Last administered on 12:56; Admin Dose 50 MLS/HR; Start 01/07/17 at 12:00 Dextrose/Sodium Chloride 1,000 ml @ 50 mls/hr Q20H IV Last administered on 06:58; Admin Dose 50 MLS/HR; Start 01/07/17 at 20:00 Vancomycin HCl 250 ml @ 125 mls/hr Q36H IVPB ; Start 01/09/17 at 22:00 Potassium Chloride (KCl 40 MEQ/250 ML NS) 250 ml @ 62.5 mls/hr ONCE ONCE IVPB Last administered on 01/09/17t 08:34; Admin Dose 62.5 MLS/HR; Start 01/09/17 at 08:00; Stop 01/09/17 at 11:59 RONNY VELÁZQUEZ Jan 09, 2017 08:40
[2017-01-09] MEDS: LEVETIRACETAM 1000 MG (PMX) 100 ML IVPB SCH ×2 (08:51→20:47)
--- NOTE | 2017-01-09 08:56 | CONS ---
Date/Time of Note Date/Time of Note DATE: 01/09/17 TIME: 08:50 Assessment/Plan Assessment/Plan Chief Complaint/Hosp Course Assessment 1. Acute respiratory failure managed by pulmonary 2. Anemia acute CT scan Intraabdominal hemorrhage Very large mixed density acute subcapsular hematoma of the liver with moderate blood seen throughout the abdomen and pelvis. Right lower lobe atelectasis or infiltrate and small bilateral effusions. Horseshoe kidneys 3. Transaminitis 4. 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 COMMENT: This case has been reviewed by Dr. Carlos Garcia of [facility] who essentially concurs with our interpretation and he states that the histopathological features are suggestive of but not characteristic for inflammatory (myofibroblastic) pseudotumor, and due to difficulty in assessing IgG4/IgG ratio due to diffuse background staining a diagnosis of sclerosing cholangitis, which can be seen in IgG4-associated liver disease cannot be made at this time. Please see attached consultation report. 5. Portal vein thrombosis Reommendation: 1. monitor hemoglobin and hematocrit and transfuse 1 unit PRBC if HGB <7.5 ,2 units PRBC hemoglobin less than 7 2. liver biopsy is unrevealing. I would recommend Heme/Onc consult to determine next steps in w/u of his liver lesions if necessary. 3. trend liver enzymes ,elevation of ast,alt could be attributed to subcapsular hematoma Problems: Consultation Date/Type/Reason Admit Date/Time Dec 19, 2016 at 21:34 Initial Consult Date 12/26/16 Type of Consultation: GI Referring Provider: KAHLIL MARTEL 24 HR Interval Summary Free Text/Dictation Denies any shortness breath, abdominal pain. Has remained hemodynamically stable. Exam/Review of Systems Vital Signs Vitals Vital Signs Date Time Temp Pulse Resp B/P Pulse Ox O2 Delivery O2 Flow Rate FiO2 01/09/17 07:00 65 15 118/86 100 Mechanical Ventilator 01/09/17 05:41 35 01/09/17 04:00 97.8 Intake and Output 01/08/17 01/08/17 01/09/17 15:00 23:00 07:00 Intake Total 1087.5 ml 620 ml 490 ml Output Total 660 ml 315 ml Balance 427.5 ml 305 ml 490 ml Exam Constitutional: alert Psych: nl mood/affect, no complaints Head: atraumatic, normocephalic Eyes: EOMI, nl conjunctiva, nl lids, nl sclera ENMT: mucosa pink and moist, nl external ears & nose, nl lips & teeth, nl nasal mucosa & septum Neck: non-tender, supple Respiratory: clear to auscultation, normal air movement Cardiovascular: nl pulses, regular rate and rhythm Gastrointestinal: bowel sounds, non-tender, soft Results Result Diagram: 01/09/17 0500 01/09/17 0500 Results 24 hrs Laboratory Tests Test 01/08/17 09:05 01/08/17 09:32 01/08/17 11:00 01/08/17 12:00 Lab Scanned Report REFERENCE LAB Stool Occult Blood POSITIVE Blood Gas Specimen Source Blood arterial Arterial Blood Date Drawn 01/08/2017 10:50:02 AM Arterial Blood pH (Temp corrected) 7.426 Arterial Blood pCO2 (Temp correct) 33.2 L Arterial Blood pO2 (Temp corrected) 87.2 Arterial Blood HCO3 21.3 L Arterial Blood Base Excess -2.6 Arterial Blood Oxygen Saturation 95.8 Westley Test N/A Arterial Blood Gas Puncture Site A-Line Arterial Blood Carboxyhemoglobin 0.3 Arterial Blood Methemoglobin 0.5 Blood Gas A-a O2 Differential 159.8 H Oxyhemoglobin Percent 95.0 Total Hemoglobin 8.1 L Blood Gas Temperature 37.0 Blood Gas Actual Respiration Rate 34 Blood Gas Modality VENT - CPAP FiO2 40.0 Blood Gas Low PEEP Setting 5.0 Blood Gas Pressure Support 10 Blood Gas Notified Whom JLD Blood Gas Notified Time 01/08/2017 11:06:52 AM Hemoglobin 7.4 L Hematocrit 23.3 L Test 01/09/17 04:42 01/09/17 05:00 Lab Scanned Report BLOOD TRANSFUSION White Blood Count 9.9 Red Blood Count 2.78 #L Hemoglobin 8.4 L Hematocrit 26.9 L Mean Corpuscular Volume 96.8 Mean Corpuscular Hemoglobin 30.2 Mean Corpuscular Hemoglobin Concent 31.2 L Red Cell Distribution Width 18.4 H Platelet Count 215 Mean Platelet Volume 10.7 H Neutrophils % 75.5 Lymphocytes % 9.4 L Monocytes % 9.8 Eosinophils % 2.1 Basophils % 0.1 Nucleated Red Blood Cells % 1.3 H Neutrophils # 7.5 Lymphocytes # 0.9 Monocytes # 1.0 H Eosinophils # 0.2 Basophils # 0.0 Nucleated Red Blood Cells # 0.1 H Sodium Level 144 Potassium Level 3.4 L Chloride Level 111 H Carbon Dioxide Level 28 Anion Gap 8 Blood Urea Nitrogen 18 Creatinine 1.07 H Glucose Level 95 Calcium Level 8.5 Phosphorus Level 2.9 Magnesium Level 1.8 Medications Medications Current Medications Ondansetron HCl (Zofran Inj) 4 mg Q6H PRN IV NAUSEA AND/OR VOMITING Last administered on 01/05/17 02:20; Admin Dose 4 MG; Start 12/20/16 at 07:30 Acetaminophen (Tylenol Tab) 650 mg Q6H PRN PO PAIN LEVEL 1-3 OR FEVER Last administered on 12/30/16 12:40; Admin Dose 650 MG; Start 12/20/16 at 07:30 Morphine Sulfate (morphine) 4 mg Q4H PRN IV SEVERE PAIN LEVEL 7-10 Last administered on 01/04/17 06:27; Admin Dose 4 MG; Start 12/20/16 at 07:30 Amlodipine Besylate (Norvasc) 5 mg DAILY PO Last administered on 01/03/17 09: 01; Admin Dose 5 MG; Start 12/21/16 at 09:00 Acetaminophen/ Hydrocodone Bitart ([place] (5/325)) 1 tab Q6H PRN PO PAIN LEVEL 7 -10 Last administered on 01/03/17 21:54; Admin Dose 1 TAB; Start 12/30/16 at 18 :00 Hydromorphone HCl (Dilaudid) 1 mg Q4H PRN IV SEVERE PAIN LEVEL 7-10 Last administered on 01/05/17 02:21; Admin Dose 1 MG; Start 01/02/17 at 17:45 Docusate Sodium (Colace) 100 mg BID PO Last administered on 01/03/17 21:54; Admin Dose 100 MG; Start 01/03/17 at 21:00 Senna (Senokot) 1 tab BID PO Last administered on 01/03/17 21:54; Admin Dose 1 TAB; Start 01/03/17 at 21:00 Polyethylene Glycol 8.5 gm 8.5 gm DAILY PO Last administered on 01/03/17 17:36 ; Admin Dose 8.5 GM; Start 01/03/17 at 15:30 Levetiracetam 100 ml @ 400 mls/hr Q12 IVPB Last administered on 01/08/17 20: 37; Admin Dose 400 MLS/HR; Start 01/04/17 at 11:00 Norepinephrine/ Dextrose (Levophed/D5W) 500 ml @ 1.87 mls/hr TITRATE IV Last administered on 01/05/17 09:13; Admin Dose 28.12 MLS/HR; Start 01/04/17 at 11: 00 Lorazepam (Ativan) 1 mg Q1H PRN IV Seizures; Start 01/04/17 at 19:30 IV Flush (NS 10 ml) 10 ml PRN PRN IV FLUSH LINE; Start 01/04/17 at 20:00 Morphine Sulfate (morphine) 2 mg Q4H PRN IV pain Last administered on 01:13; Admin Dose 2 MG; Start 01/05/17 at 01:30 Pantoprazole (Protonix Iv) 40 mg DAILY@06 IV Last administered on 01/09/17 06: 58; Admin Dose 40 MG; Start 01/05/17 at 06:30 Lorazepam 1 mg 1 mg Q4H PRN IV agitation Last administered on 01/05/17 12:10; Admin Dose 1 MG; Start 01/05/17 at 07:00 Fentanyl 100 ml @ 2.5 mls/hr TITRATE IV Last administered on 01/08/17 15:27; Admin Dose 5 MLS/HR; Start 01/05/17 at 12:25 Piperacillin Sod/ Tazobactam Sod (Zosyn 2.25gm/ 50ml (Pmx)) 50 ml @ 100 mls/hr Q8 IVPB Last administered on 01/09/17 06:58; Admin Dose 100 MLS/HR; Start at 22:00 Hydralazine HCl 10 mg 10 mg Q2H PRN IV SBP >170 Last administered on 01/06/17 03:21; Admin Dose 10 MG; Start 01/06/17 at 03:00 Fluconazole/ Sodium Chloride 50 ml @ 50 mls/hr Q24H IVPB Last administered on 12:56; Admin Dose 50 MLS/HR; Start 01/07/17 at 12:00 Dextrose/Sodium Chloride 1,000 ml @ 50 mls/hr Q20H IV Last administered on 06:58; Admin Dose 50 MLS/HR; Start 01/07/17 at 20:00 Vancomycin HCl 250 ml @ 125 mls/hr Q36H IVPB ; Start 01/09/17 at 22:00 Potassium Chloride (KCl 40 MEQ/250 ML NS) 250 ml @ 62.5 mls/hr ONCE ONCE IVPB Last administered on 01/09/17 08:34; Admin Dose 62.5 MLS/HR; Start 01/09/17 at 08:00; Stop 01/09/17 at 11:59 JANKI RAUSCH MD Jan 09, 2017 08:56
[2017-01-09] MEDS: DOCUSATE SODIUM 100 MG CAP PO SCH ×2 (08:57→20:47)
[2017-01-09] MEDS: POLYETHYLENE GLYCOL 17 GM PACKET PO SCH (08:57)
[2017-01-09] MEDS: SENNA TAB PO SCH ×2 (08:57→20:47)
[2017-01-09] MEDS: AMLODIPINE 5 MG TAB PO SCH (08:57)
--- NOTE | 2017-01-09 09:19 | PN ---
Date/Time of Note Date/Time of Note DATE: 01/09/17 TIME: 09:15 Assessment/Plan VTE Prophylaxis VTE Prophylaxis Intervention: SCD's VTE Contraindication Reason: bleeding Lines/Catheters IV Catheter Type (from Nrsg): A Line Urinary Cath still in place: Yes Reason Cath still needed: other (indicate) Assessment/Plan Assessment/Plan 51-year-old female who had initially presented with abdominal pain and was found to have extensive portal vein and right hepatic vein thrombosis. Initial imaging was concerning for multiple liver lesions, pulmonary nodules, as well as a uterine mass. She was started on anticoagulation for her thrombosis, while she underwent further workup for her right-sided liver masses to rule out a metastatic process. She needed an MRI with gadolinium contrast, however she developed acute renal insufficiency from contrast versus vancomycin, and we had to wait for renal function to normalize before she could get the MRI. She got the MRI and subsequently underwent a liver biopsy. Pathology showed concern for lymphoplasmacytic involvement, and a second opinion has been sent to [facility] and is still pending. However in the interim, patient has decompensated; initially complaining of her right upper quadrant pain after the biopsy , was found to have a capsular hematoma thought to be from the location of biopsy with moderate blood seen throughout the abdomen and pelvis. She was also found to have severe coagulopathy concerning for DIC. She is at this time being managed in the ICU for the followin. Severe systemic shock likely hypovolemic from acute intra-abdominal hemorrhage / subcapsular hepatic hematoma causing severe coagulopathy: improved / off pressors 2. Ventilator dependent respiratory failure secondary to #3 3. Acute encephalopathy secondary to #4: improving 4. Recurrence of acute kidney injury secondary to #1: improving 5. Concern for metastatic disease with hepatic masses as well as uterine mass * Note that hepatic masses strongly favor abscesses from hematogenous spread of bilateral pneumonia versus mets 6. Hypertension: fluctuating control 7. Diffuse venous thrombosis to include hepatic, portal, and right upper extremity veins also suggestive of metastatic disease 8. Status post alpha hemolytic strep bacteremia 9. Solitary seizure episode likely secondary to #1 10. Acute transaminitis and coagulopathy secondary to subcapsular hematoma s/p status post hepatic artery ligation versus embolization via IR : Improving Plan: * Continue ventilator weaning * Continue NG tube feedings * Serial labs and replacement of blood prod FFP / Vit K / PRBC / Platelets as indicated / appreciate hematology input and help * Monitor renal and hepatic function / IVF Is D5 1/2 NS @ 40cc an hour * Per report patient is status post hepatic artery embolization and hence is high risk for hepatic failure as she already had a hepatic vein thrombosis. Closely monitor. * Patient remains off anticoagulation d/t bleeding * Patient continues on abx per ID * Patient is also on Keppra for single seizure episode * Follow-up final pathology results from [facility] * Regarding uterine lesion, patient is going to total hysterectomy and possible salpingo-oophorectomy with mass excision and biopsy when stable Prophylaxis: SCDs/IV PPI Prognosis: Guarded CC time >30mins Subjective 24 Hr Interval Summary Free Text/Dictation planned for CPAP trials today Nursing reports no acute overnight events. Exam/Review of Systems Vital Signs Vitals Vital Signs Date Time Temp Pulse Resp B/P Pulse Ox O2 Delivery O2 Flow Rate FiO2 01/09/17 07:00 65 15 118/86 100 Mechanical Ventilator 01/09/17 05:41 35 01/09/17 04:00 97.8 Intake and Output 01/08/17 01/08/17 01/09/17 15:00 23:00 07:00 Intake Total 1087.5 ml 620 ml 490 ml Output Total 660 ml 315 ml Balance 427.5 ml 305 ml 490 ml Exam GENERAL: Arousable, comfortable on vent HEENT: HUMBERTO, Intubated, LUNGS: diffusely diminished and coarse BS HEART: S1, S2. No murmur, gallops or rubs. Tachycardic ABDOMEN: Soft, full, Normoactive bowel sounds. GENITOURINARY: Normal female external genitalia, Lau to bedside drainage EXTREMITIES: No edema NEUROLOGIC: Moves all 4 extremities, SKIN: Otherwise, unremarkable. Results Result Diagram: 01/09/17 0500 01/09/17 0500 Results 24 hrs Laboratory Tests Test 01/08/17 09:32 01/08/17 11:00 01/08/17 12:00 01/09/17 04:42 Stool Occult Blood POSITIVE Blood Gas Specimen Source Blood arterial Arterial Blood Date Drawn 01/08/2017 10:50:02 AM Arterial Blood pH (Temp corrected) 7.426 Arterial Blood pCO2 (Temp correct) 33.2 L Arterial Blood pO2 (Temp corrected) 87.2 Arterial Blood HCO3 21.3 L Arterial Blood Base Excess -2.6 Arterial Blood Oxygen Saturation 95.8 Westley Test N/A Arterial Blood Gas Puncture Site A-Line Arterial Blood Carboxyhemoglobin 0.3 Arterial Blood Methemoglobin 0.5 Blood Gas A-a O2 Differential 159.8 H Oxyhemoglobin Percent 95.0 Total Hemoglobin 8.1 L Blood Gas Temperature 37.0 Blood Gas Actual Respiration Rate 34 Blood Gas Modality VENT - CPAP FiO2 40.0 Blood Gas Low PEEP Setting 5.0 Blood Gas Pressure Support 10 Blood Gas Notified Whom JLD Blood Gas Notified Time 01/08/2017 11:06:52 AM Hemoglobin 7.4 L Hematocrit 23.3 L Lab Scanned Report BLOOD TRANSFUSION Test 01/09/17 05:00 White Blood Count 9.9 Red Blood Count 2.78 #L Hemoglobin 8.4 L Hematocrit 26.9 L Mean Corpuscular Volume 96.8 Mean Corpuscular Hemoglobin 30.2 Mean Corpuscular Hemoglobin Concent 31.2 L Red Cell Distribution Width 18.4 H Platelet Count 215 Mean Platelet Volume 10.7 H Neutrophils % 75.5 Lymphocytes % 9.4 L Monocytes % 9.8 Eosinophils % 2.1 Basophils % 0.1 Nucleated Red Blood Cells % 1.3 H Neutrophils # 7.5 Lymphocytes # 0.9 Monocytes # 1.0 H Eosinophils # 0.2 Basophils # 0.0 Nucleated Red Blood Cells # 0.1 H Sodium Level 144 Potassium Level 3.4 L Chloride Level 111 H Carbon Dioxide Level 28 Anion Gap 8 Blood Urea Nitrogen 18 Creatinine 1.07 H Glucose Level 95 Calcium Level 8.5 Phosphorus Level 2.9 Magnesium Level 1.8 Medications Medications Current Medications Ondansetron HCl (Zofran Inj) 4 mg Q6H PRN IV NAUSEA AND/OR VOMITING Last administered on 01/05/17 02:20; Admin Dose 4 MG; Start 12/20/16 at 07:30 Acetaminophen (Tylenol Tab) 650 mg Q6H PRN PO PAIN LEVEL 1-3 OR FEVER Last administered on 12/30/16 12:40; Admin Dose 650 MG; Start 12/20/16 at 07:30 Morphine Sulfate (morphine) 4 mg Q4H PRN IV SEVERE PAIN LEVEL 7-10 Last administered on 01/04/17 06:27; Admin Dose 4 MG; Start 12/20/16 at 07:30 Amlodipine Besylate (Norvasc) 5 mg DAILY PO Last administered on 01/03/17 09: 01; Admin Dose 5 MG; Start 12/21/16 at 09:00 Acetaminophen/ Hydrocodone Bitart ([place] (5/325)) 1 tab Q6H PRN PO PAIN LEVEL 7 -10 Last administered on 01/03/17 21:54; Admin Dose 1 TAB; Start 12/30/16 at 18 :00 Hydromorphone HCl (Dilaudid) 1 mg Q4H PRN IV SEVERE PAIN LEVEL 7-10 Last administered on 01/05/17 02:21; Admin Dose 1 MG; Start 01/02/17 at 17:45 Docusate Sodium (Colace) 100 mg BID PO Last administered on 01/03/17 21:54; Admin Dose 100 MG; Start 01/03/17 at 21:00 Senna (Senokot) 1 tab BID PO Last administered on 01/03/17 21:54; Admin Dose 1 TAB; Start 01/03/17 at 21:00 Polyethylene Glycol 8.5 gm 8.5 gm DAILY PO Last administered on 01/03/17 17:36 ; Admin Dose 8.5 GM; Start 01/03/17 at 15:30 Levetiracetam 100 ml @ 400 mls/hr Q12 IVPB Last administered on 01/09/17 08: 51; Admin Dose 400 MLS/HR; Start 01/04/17 at 11:00 Norepinephrine/ Dextrose (Levophed/D5W) 500 ml @ 1.87 mls/hr TITRATE IV Last administered on 01/05/17 09:13; Admin Dose 28.12 MLS/HR; Start 01/04/17 at 11: 00 Lorazepam (Ativan) 1 mg Q1H PRN IV Seizures; Start 01/04/17 at 19:30 IV Flush (NS 10 ml) 10 ml PRN PRN IV FLUSH LINE; Start 01/04/17 at 20:00 Morphine Sulfate (morphine) 2 mg Q4H PRN IV pain Last administered on 01:13; Admin Dose 2 MG; Start 01/05/17 at 01:30 Pantoprazole (Protonix Iv) 40 mg DAILY@06 IV Last administered on 01/09/17 06: 58; Admin Dose 40 MG; Start 01/05/17 at 06:30 Lorazepam 1 mg 1 mg Q4H PRN IV agitation Last administered on 01/05/17 12:10; Admin Dose 1 MG; Start 01/05/17 at 07:00 Fentanyl (Sublimaze) 100 ml @ 2.5 mls/hr TITRATE IV Last administered on 15:27; Admin Dose 5 MLS/HR; Start 01/05/17 at 12:25 Hydralazine HCl 10 mg 10 mg Q2H PRN IV SBP >170 Last administered on 01/06/17 03:21; Admin Dose 10 MG; Start 01/06/17 at 03:00 Fluconazole/ Sodium Chloride 50 ml @ 50 mls/hr Q24H IVPB Last administered on 12:56; Admin Dose 50 MLS/HR; Start 01/07/17 at 12:00 Dextrose/Sodium Chloride 1,000 ml @ 50 mls/hr Q20H IV Last administered on 06:58; Admin Dose 50 MLS/HR; Start 01/07/17 at 20:00 Potassium Chloride 250 ml @ 62.5 mls/hr ONCE ONCE IVPB Last administered on 08:34; Admin Dose 62.5 MLS/HR; Start 01/09/17 at 08:00; Stop 01/09/17 at 11:59 Vancomycin HCl 750 mg/Sodium Chloride 150 ml @ 75 mls/hr Q12H IVPB ; Start at 11:00 Piperacillin Sod/ Tazobactam Sod (Zosyn 3.375gm/ 100 ml (Pmx)) 100 ml @ 200 mls /hr Q6 IVPB ; Start 01/09/17 at 12:00 Miscellaneous Information (*Rx Drug Level Order Reminder*) VANCO TROUGH @ 1, 000 ON... ONCE ONCE XX ; Start 01/10/17 at 10:00; Stop 01/10/17 at 10:01 Procedures Procedures PROCEDURE: XR Abdomen. CLINICAL INDICATION: Abdominal pain. TECHNIQUE: 2 frontal views of the abdomen. COMPARISON: 01/08/2017. FINDINGS: There is a nasogastric tube extending to the stomach. There are sutures within the right upper quadrant. The bowel gas pattern is unremarkable. There is no bowel obstruction or free air. There is no organomegaly. There is no abnormal calcification. The osseous structures are unremarkable. IMPRESSION: Nasogastric tube in place. .Cristobal Grey MD, MD Date Time Electronically viewed and signed by .Cristobal Grey MD, MD on 01/09/2017 04:30 .T/ CC: RISHI RDZ BOLATITO M. Jan 09, 2017 09:19
[2017-01-09] MEDS ORDERED: VANCOMYCIN 750 MG in SOD CHLORIDE 0.9% 150 ML IVPB SCH (10:00)
[2017-01-09 10:30] LABS: Arterial Base Excess 0.9 mmol/L (-3.0-3); Arterial HCO3 24.7 mmol/L (22.0-26.0)
[2017-01-09 10:31] LABS: Arterial COHb 0.3 % (0.0-3.0); Arterial Fraction of Oxyhgb 94.2 % (93.0-99.0); Arterial MetHb 0.1 % (0.0-1.5); Arterial Total Hemglobin 10.2 g/dl (12.0-18.0); Blood Gas PS 10; MODE VENT - CPAP
[2017-01-09] MEDS: VANCOMYCIN 750 MG in SOD CHLORIDE 0.9% 150 ML IVPB SCH ×2 (11:00→22:49)
[2017-01-09] MEDS: LORAZEPAM 2 MG INJ IV PRN (11:02)
--- NOTE | 2017-01-09 12:43 | CONS ---
Date/Time of Note Date/Time of Note DATE: 01/09/17 TIME: 12:40 Assessment/Plan Assessment/Plan Chief Complaint/Hosp Course SUBJECTIVE: Patient was extubated this a.m., currently on BiPAP alert follows commands and in no distress. No fevers. Family at bedside MICROBIOLOGY: Sputum cx + C alb. INDWELLINGS: Lau catheter, A-line, and PICC line. ANTIMICROBIALS: 1. Vancomycin. 2. Zosyn. 3. Diflucan PHYSICAL EXAMINATION: GENERAL: This is a well-developed, obese, middle-aged woman who is in no distress HEENT: Head atraumatic, normocephalic. Sclerae anicteric. NECK: Supple. CHEST: Rise symmetrical. Breath sounds diminished to bases. HEART: S1, S2. ABDOMEN: Soft. Bowel tones present. EXTREMITIES: With trace edema. ASSESSMENT: 1. Severe sepsis with shock, possibly also hypovolemic==> off pressors. 2. Acute respiratory failure, status post extubated this a.m. 3. Severe bilateral pneumonia. 4. Acute anemia, status post liver biopsy with massive subcapsular hepatic hematoma. 5. 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 6. Pelvic mass. PLAN: stable post extubation, continue abx, transfuse as needed, follow recommendations of consultants ==> pending final work up DW staff Problems: Consultation Date/Type/Reason Admit Date/Time Dec 19, 2016 at 21:34 Initial Consult Date 12/20/16 Type of Consultation: Infectious disease Referring Provider: KAHLIL MARTEL Exam/Review of Systems Vital Signs Vitals Vital Signs Date Time Temp Pulse Resp B/P Pulse Ox O2 Delivery O2 Flow Rate FiO2 01/09/17 11:15 5.0 01/09/17 11:00 102 28 188/91 99 Mechanical Ventilator 01/09/17 08:00 98.0 01/09/17 08:00 30 Intake and Output 01/08/17 01/08/17 01/09/17 15:00 23:00 07:00 Intake Total 1087.5 ml 620 ml 490 ml Output Total 660 ml 475 ml 390 ml Balance 427.5 ml 145 ml 100 ml Results Result Diagram: 01/09/17 0500 01/09/17 0500 Results 24 hrs Laboratory Tests Test 01/09/17 04:42 01/09/17 05:00 01/09/17 10:15 Lab Scanned Report BLOOD TRANSFUSION White Blood Count 9.9 Red Blood Count 2.78 #L Hemoglobin 8.4 L Hematocrit 26.9 L Mean Corpuscular Volume 96.8 Mean Corpuscular Hemoglobin 30.2 Mean Corpuscular Hemoglobin Concent 31.2 L Red Cell Distribution Width 18.4 H Platelet Count 215 Mean Platelet Volume 10.7 H Neutrophils % 75.5 Lymphocytes % 9.4 L Monocytes % 9.8 Eosinophils % 2.1 Basophils % 0.1 Nucleated Red Blood Cells % 1.3 H Neutrophils # 7.5 Lymphocytes # 0.9 Monocytes # 1.0 H Eosinophils # 0.2 Basophils # 0.0 Nucleated Red Blood Cells # 0.1 H Sodium Level 144 Potassium Level 3.4 L Chloride Level 111 H Carbon Dioxide Level 28 Anion Gap 8 Blood Urea Nitrogen 18 Creatinine 1.07 H Glucose Level 95 Calcium Level 8.5 Phosphorus Level 2.9 Magnesium Level 1.8 Blood Gas Specimen Source Blood arterial Arterial Blood Date Drawn 01/09/2017 10:20:32 AM Arterial Blood pH (Temp corrected) 7.449 Arterial Blood pCO2 (Temp correct) 36.5 Arterial Blood pO2 (Temp corrected) 76.0 L Arterial Blood HCO3 24.7 Arterial Blood Base Excess 0.9 Arterial Blood Oxygen Saturation 94.6 L Westley Test N/A Arterial Blood Gas Puncture Site A-Line Arterial Blood Carboxyhemoglobin 0.3 Arterial Blood Methemoglobin 0.1 Blood Gas A-a O2 Differential 95.0 H Oxyhemoglobin Percent 94.2 Total Hemoglobin 10.2 L Blood Gas Temperature 37.0 Blood Gas Actual Respiration Rate 23 Blood Gas Modality VENT - CPAP FiO2 30.0 Blood Gas Low PEEP Setting 5.0 Blood Gas Pressure Support 10 Blood Gas Notified Whom JLD Blood Gas Notified Time 01/09/2017 10:30:51 AM Medications Medications Current Medications Ondansetron HCl (Zofran Inj) 4 mg Q6H PRN IV NAUSEA AND/OR VOMITING Last administered on 01/05/17 02:20; Admin Dose 4 MG; Start 12/20/16 at 07:30 Acetaminophen (Tylenol Tab) 650 mg Q6H PRN PO PAIN LEVEL 1-3 OR FEVER Last administered on 12/30/16 12:40; Admin Dose 650 MG; Start 12/20/16 at 07:30 Morphine Sulfate (morphine) 4 mg Q4H PRN IV SEVERE PAIN LEVEL 7-10 Last administered on 01/04/17 06:27; Admin Dose 4 MG; Start 12/20/16 at 07:30 Amlodipine Besylate (Norvasc) 5 mg DAILY PO Last administered on 01/03/17 09: 01; Admin Dose 5 MG; Start 12/21/16 at 09:00 Acetaminophen/ Hydrocodone Bitart ([place] (5/325)) 1 tab Q6H PRN PO PAIN LEVEL 7 -10 Last administered on 01/03/17 21:54; Admin Dose 1 TAB; Start 12/30/16 at 18 :00 Hydromorphone HCl (Dilaudid) 1 mg Q4H PRN IV SEVERE PAIN LEVEL 7-10 Last administered on 01/05/17 02:21; Admin Dose 1 MG; Start 01/02/17 at 17:45 Docusate Sodium (Colace) 100 mg BID PO Last administered on 01/03/17 21:54; Admin Dose 100 MG; Start 01/03/17 at 21:00 Senna (Senokot) 1 tab BID PO Last administered on 01/03/17 21:54; Admin Dose 1 TAB; Start 01/03/17 at 21:00 Polyethylene Glycol 8.5 gm 8.5 gm DAILY PO Last administered on 01/03/17 17:36 ; Admin Dose 8.5 GM; Start 01/03/17 at 15:30 Levetiracetam 100 ml @ 400 mls/hr Q12 IVPB Last administered on 01/09/17 08: 51; Admin Dose 400 MLS/HR; Start 01/04/17 at 11:00 Norepinephrine/ Dextrose (Levophed/D5W) 500 ml @ 1.87 mls/hr TITRATE IV Last administered on 01/05/17 09:13; Admin Dose 28.12 MLS/HR; Start 01/04/17 at 11: 00 Lorazepam (Ativan) 1 mg Q1H PRN IV Seizures; Start 01/04/17 at 19:30 IV Flush (NS 10 ml) 10 ml PRN PRN IV FLUSH LINE; Start 01/04/17 at 20:00 Morphine Sulfate (morphine) 2 mg Q4H PRN IV pain Last administered on 01:13; Admin Dose 2 MG; Start 01/05/17 at 01:30 Pantoprazole (Protonix Iv) 40 mg DAILY@06 IV Last administered on 01/09/17 06: 58; Admin Dose 40 MG; Start 01/05/17 at 06:30 Lorazepam 1 mg 1 mg Q4H PRN IV agitation Last administered on 01/09/17 11:02; Admin Dose 1 MG; Start 01/05/17 at 07:00 Fentanyl (Sublimaze) 100 ml @ 2.5 mls/hr TITRATE IV Last administered on 15:27; Admin Dose 5 MLS/HR; Start 01/05/17 at 12:25 Hydralazine HCl 10 mg 10 mg Q2H PRN IV SBP >170 Last administered on 01/06/17 03:21; Admin Dose 10 MG; Start 01/06/17 at 03:00 Fluconazole/ Sodium Chloride 50 ml @ 50 mls/hr Q24H IVPB Last administered on 12:56; Admin Dose 50 MLS/HR; Start 01/07/17 at 12:00 Dextrose/Sodium Chloride 1,000 ml @ 50 mls/hr Q20H IV Last administered on 06:58; Admin Dose 50 MLS/HR; Start 01/07/17 at 20:00 Vancomycin HCl 750 mg/Sodium Chloride 150 ml @ 75 mls/hr Q12H IVPB ; Start at 11:00 Piperacillin Sod/ Tazobactam Sod (Zosyn 3.375gm/ 100 ml (Pmx)) 100 ml @ 200 mls /hr Q6 IVPB ; Start 01/09/17 at 12:00 Miscellaneous Information (*Rx Drug Level Order Reminder*) VANCO TROUGH @ 1, 000 ON... ONCE ONCE XX ; Start 01/10/17 at 10:00; Stop 01/10/17 at 10:01 NANCY HULL NP Jan 09, 2017 12:43
[2017-01-09] MEDS: FLUCONAZOLE 100 MG/NS (PMX) 50 ML IVPB SCH (13:22)
[2017-01-09] MEDS: PIPER-TAZO 3.375 GM IV (PMX) 100 ML IVPB SCH ×2 (14:42→18:07)
[2017-01-09] MEDS ORDERED: FUROSEMIDE 40 MG INJ IV ONE (16:30)
[2017-01-09] MEDS: ACETAMINOPHEN 325 MG TAB PO PRN (17:07)
[2017-01-09] MEDS: morphine 2 MG INJ IV PRN (19:43)
[2017-01-09 20:26] LABS: AADO2 Arterial 129.1 mmHg (7.0-24.0); Arterial Base Excess 2.9 mmol/L (-3.0-3); Arterial COHb 0.3 % (0.0-3.0); Arterial Fraction of Oxyhgb 96.8 % (93.0-99.0); Arterial HCO3 26.9 mmol/L (22.0-26.0); Arterial MetHb 0.3 % (0.0-1.5); Arterial Total Hemglobin 10.5 g/dl (12.0-18.0); Blood Gas IEPAP 15/5; Blood Gas PS 10; MODE MASK - BIPAP
[2017-01-09] MEDS ORDERED: VANCOMYCIN 1 GM in NS 250 ML IVPB SCH (22:00)
[2017-01-09] MEDS: morphine 4 MG/ML VIAL IV PRN (22:48)
[2017-01-10] VITALS (37 sets, daily range): BP systolic 88–172; BP diastolic 61–117; PULSE 62–121; RESP 15–23
[2017-01-10] MEDS: PIPER-TAZO 3.375 GM IV (PMX) 100 ML IVPB SCH ×5 (00:01→23:51)
[2017-01-10] MEDS: morphine 2 MG INJ IV PRN ×2 (02:54→22:18)
[2017-01-10] MEDS: DEXTROSE 5%-0.45% NACL 1,000 ML IV SCH (02:55)
[2017-01-10] MEDS: PANTOPRAZOLE 40 MG INJ IV SCH (05:01)
[2017-01-10 05:16] LABS: BASOPHILS % 0.2 % (0.0-2.0); EOSINOPHILS # 0.2 10^3/ul (0.0-0.5); EOSINOPHILS % 2.3 % (0.0-7.0); HEMATOCRIT 29.2 % (37.0-47.0); HEMOGLOBIN 9.3 g/dl (12.0-16.0); LYMPHOCYTES # 0.8 10^3/ul (0.8-2.9); LYMPHOCYTES % 8.1 % (15.0-51.0); MEAN CORPUSCULAR HEMOGLOBIN 30.9 pg (29.0-33.0); MEAN CORPUSCULAR HGB CONC 31.8 g/dl (32.0-37.0); MEAN PLATELET VOLUME 10.7 fl (7.4-10.4); MONOCYTE # 0.9 10^3/ul (0.3-0.9); NEUTROPHIL # 7.2 10^3/ul (1.6-7.5); NEUTROPHILS % 76.7 % (39.0-77.0); NUCLEATED RED BLOOD CELLS% 0.4 /100WBC (0.0-0.0); PLATELET COUNT 239 10^3/UL (140-415); RED BLOOD COUNT 3.01 10^6/ul (4.20-5.40); RED CELL DISTRIBUTION WIDTH 19.4 % (11.5-14.5); WHITE BLOOD COUNT 9.4 10^3/ul (4.8-10.8)
[2017-01-10 05:42] LABS: INR 1.09; PROTIME 14.1 Sec (12.2-14.2); PT RATIO 1.1
[2017-01-10 05:43] LABS: PARTIAL THROMBOPLASTIN TIME 26.9 Sec (25.0-35.0)
[2017-01-10 06:01] LABS: CALCIUM 8.2 mg/dl (8.4-10.2); CREATININE 0.85 mg/dl (0.44-1.00); MAGNESIUM 1.5 mg/dl (1.7-2.5); PHOSPHORUS 2.6 mg/dl (2.5-4.9)
[2017-01-10 06:03] LABS: ADD SCAN DIFF NO
[2017-01-10 06:38] LABS: POTASSIUM 2.8 mmol/L (3.5-5.1)
[2017-01-10] MEDS: morphine 4 MG/ML VIAL IV PRN (06:47)
[2017-01-10] MEDS ORDERED: POTASSIUM CHLORIDE 250 ML IVPB ONE (07:00)
[2017-01-10] MEDS ORDERED: MAGNESIUM SULFATE 2 GM/50 ML 50 ML IVPB ONE (07:30)
--- NOTE | 2017-01-10 07:47 | RADRPT ---
PROCEDURE: XR Chest. CLINICAL INDICATION: Respiratory failure TECHNIQUE: A single AP view of the chest was obtained. COMPARISON: Chest x-ray dated 01/08/2017 FINDINGS: The endotracheal tube has been removed. The tip of the enteric tube projects over the right upper q uadrant. There is a left upper extremity PICC line with tip near the cavoatrial junction. Lung volumes are low with compressive changes, vascular crowding and basilar atelectasis. No focal a irspace opacity, pleural effusion or pneumothorax is seen. The cardiomediastinal silhouette is with in normal limits for size. The osseous structures are unremarkable. IMPRESSION: 1. Low lung volumes with compressive changes and basilar atelectasis. No significant interval munoz e. 2. Tubes and lines, as described above. RPTAT: HH .Jasmina Harrison MD, MD Date Time Electronically viewed and signed by .Jasmina Harrison MD, on 01/10/2017 07:46 .G/
--- NOTE | 2017-01-10 07:51 | CONS ---
Date/Time of Note Date/Time of Note DATE: 01/10/17 TIME: 07:47 Assessment/Plan Assessment/Plan Additional Assessment/Plan Assessment and recommendations; 1. Patient initially admitted with abdominal pain discovered to have multiple liver lesions which were consistent with multiple hepatic abscesses with bilateral pneumonia likely hematogenous spread to the lungs. 2. Patient developed portal vein thrombosis and then developed massive subcapsular hematoma requiring multiple packed RBC and FFP transfusion, also patient went into respiratory failure requiring intubation, now extubated yesterday, however still requiring BiPAP for tachypnea. 3. Acute renal injury, with normalization of renal function. 4. Status post liver biopsy which has been inconclusive. Obtain a chest x-ray. Once x-ray is done I will review it and make further recommendations regarding continued need for BiPAP. Overall has improved markedly though. Consultation Date/Type/Reason Admit Date/Time Dec 19, 2016 at 21:34 Initial Consult Date 12/20/16 Type of Consultation: Pulmonary/critical care Referring Provider: KAHLIL MARTEL 24 HR Interval Summary Free Text/Dictation Patient condition is improved from yesterday, the patient was extubated yesterday afternoon however is requiring BiPAP for mild tachypnea. Patient denies any shortness of breath, abdominal pain, chest pain. Nausea vomiting. General exam; middle-aged woman, alert and awake. Currently in no distress. On BiPAP. Exam/Review of Systems Vital Signs Vitals Vital Signs Date Time Temp Pulse Resp B/P Pulse Ox O2 Delivery O2 Flow Rate FiO2 01/10/17 06:00 67 148/65 98 BIPAP 01/10/17 05:10 30 01/10/17 04:00 98.2 01/10/17 00:00 15 01/09/17 11:15 5.0 Intake and Output 01/09/17 01/09/17 01/10/17 15:00 23:00 07:00 Intake Total 812.5 ml 570 ml 650 ml Output Total 1600 ml 2025 ml 750 ml Balance -787.5 ml -1455 ml -100 ml Exam HEENT exam; supple neck, no JVD. No lymphadenopathy. Midline trachea. No thyromegaly. Patient has fair dentition. Pupils are small bilaterally. No neck masses. Chest exam; diminished but clear vessel. S1-S2 audible, no murmurs. Regular rhythm. Abdomen exam; soft, nontender. No distention. No organomegaly. Bowel sounds audible. Extremity exam; no peripheral edema. Pulses 1+ bilaterally. [employer] O[employer] exam; no focal deficit. Results Result Diagram: 01/10/17 0500 01/10/17 0500 Results 24 hrs Laboratory Tests Test 01/09/17 10:15 01/09/17 16:36 01/09/17 18:12 01/09/17 20:10 Blood Gas Specimen Source Blood arterial Blood arterial Arterial Blood Date Drawn 01/09/2017 10:20:32 AM 01/09/2017 8:15:55 PM Arterial Blood pH (Temp corrected) 7.449 7.457 H Arterial Blood pCO2 (Temp correct) 36.5 39.0 Arterial Blood pO2 (Temp corrected) 76.0 L 111.3 H Arterial Blood HCO3 24.7 26.9 H Arterial Blood Base Excess 0.9 2.9 Arterial Blood Oxygen Saturation 94.6 L 97.4 [place] Test N/A N/A Arterial Blood Gas Puncture Site A-Line A-Line Arterial Blood Carboxyhemoglobin 0.3 0.3 Arterial Blood Methemoglobin 0.1 0.3 Blood Gas A-a O2 Differential 95.0 H 129.1 H Oxyhemoglobin Percent 94.2 96.8 Total Hemoglobin 10.2 L 10.5 L Blood Gas Temperature 37.0 37.0 Blood Gas Actual Respiration Rate 23 18 Blood Gas Modality VENT - CPAP MASK - BIPAP FiO2 30.0 40.0 Blood Gas Low PEEP Setting 5.0 Blood Gas Pressure Support 10 10 Blood Gas Notified Whom JOSE COLLADO Blood Gas Notified Time 01/09/2017 10:30:51 AM 01/09/2017 8:26:36 PM Bedside Glucose 147 Potassium Level 3.2 L Blood Gas Respiration Rate 16.0 Blood Gas IPAP/EPAP Ratio 15/5 Test 01/10/17 05:00 White Blood Count 9.4 Red Blood Count 3.01 L Hemoglobin 9.3 L Hematocrit 29.2 L Mean Corpuscular Volume 97.0 Mean Corpuscular Hemoglobin 30.9 Mean Corpuscular Hemoglobin Concent 31.8 L Red Cell Distribution Width 19.4 H Platelet Count 239 Mean Platelet Volume 10.7 H Neutrophils % 76.7 Lymphocytes % 8.1 L Monocytes % 10.0 Eosinophils % 2.3 Basophils % 0.2 Nucleated Red Blood Cells % 0.4 H Neutrophils # 7.2 Lymphocytes # 0.8 Monocytes # 0.9 Eosinophils # 0.2 Basophils # 0.0 Nucleated Red Blood Cells # 0.0 Prothrombin Time 14.1 Prothrombin Time Ratio 1.1 INR International Normalized Ratio 1.09 Activated Partial Thromboplast Time 26.9 Fibrinogen 478.0 #H Sodium Level 146 H Potassium Level 2.8 *L Chloride Level 111 H Carbon Dioxide Level 28 Anion Gap 10 Blood Urea Nitrogen 16 Creatinine 0.85 Glucose Level 94 Calcium Level 8.2 L Phosphorus Level 2.6 Magnesium Level 1.5 L Medications Medications Current Medications Ondansetron HCl (Zofran Inj) 4 mg Q6H PRN IV NAUSEA AND/OR VOMITING Last administered on 01/05/17 02:20; Admin Dose 4 MG; Start 12/20/16 at 07:30 Acetaminophen (Tylenol Tab) 650 mg Q6H PRN PO PAIN LEVEL 1-3 OR FEVER Last administered on 01/09/17 17:07; Admin Dose 650 MG; Start 12/20/16 at 07:30 Morphine Sulfate (morphine) 4 mg Q4H PRN IV SEVERE PAIN LEVEL 7-10 Last administered on 01/10/17 06:47; Admin Dose 4 MG; Start 12/20/16 at 07:30 Amlodipine Besylate (Norvasc) 5 mg DAILY PO Last administered on 01/03/17 09: 01; Admin Dose 5 MG; Start 12/21/16 at 09:00 Acetaminophen/ Hydrocodone Bitart ([place] (5/325)) 1 tab Q6H PRN PO PAIN LEVEL 7 -10 Last administered on 01/03/17 21:54; Admin Dose 1 TAB; Start 12/30/16 at 18 :00 Hydromorphone HCl (Dilaudid) 1 mg Q4H PRN IV SEVERE PAIN LEVEL 7-10 Last administered on 01/05/17 02:21; Admin Dose 1 MG; Start 01/02/17 at 17:45 Docusate Sodium (Colace) 100 mg BID PO Last administered on 01/09/17 20:47; Admin Dose 100 MG; Start 01/03/17 at 21:00 Senna (Senokot) 1 tab BID PO Last administered on 01/09/17 20:47; Admin Dose 1 TAB; Start 01/03/17 at 21:00 Polyethylene Glycol 8.5 gm 8.5 gm DAILY PO Last administered on 01/03/17 17:36 ; Admin Dose 8.5 GM; Start 01/03/17 at 15:30 Levetiracetam 100 ml @ 400 mls/hr Q12 IVPB Last administered on 01/09/17 20: 47; Admin Dose 400 MLS/HR; Start 01/04/17 at 11:00 Norepinephrine/ Dextrose (Levophed/D5W) 500 ml @ 1.87 mls/hr TITRATE IV Last administered on 01/05/17 09:13; Admin Dose 28.12 MLS/HR; Start 01/04/17 at 11: 00 Lorazepam (Ativan) 1 mg Q1H PRN IV Seizures; Start 01/04/17 at 19:30 IV Flush (NS 10 ml) 10 ml PRN PRN IV FLUSH LINE; Start 01/04/17 at 20:00 Morphine Sulfate (morphine) 2 mg Q4H PRN IV pain Last administered on 02:54; Admin Dose 2 MG; Start 01/05/17 at 01:30 Pantoprazole (Protonix Iv) 40 mg DAILY@06 IV Last administered on 01/10/17 05: 01; Admin Dose 40 MG; Start 01/05/17 at 06:30 Lorazepam 1 mg 1 mg Q4H PRN IV agitation Last administered on 01/09/17 11:02; Admin Dose 1 MG; Start 01/05/17 at 07:00 Fentanyl (Sublimaze) 100 ml @ 2.5 mls/hr TITRATE IV Last administered on 15:27; Admin Dose 5 MLS/HR; Start 01/05/17 at 12:25 Hydralazine HCl 10 mg 10 mg Q2H PRN IV SBP >170 Last administered on 01/06/17 03:21; Admin Dose 10 MG; Start 01/06/17 at 03:00 Fluconazole/ Sodium Chloride 50 ml @ 50 mls/hr Q24H IVPB Last administered on 13:22; Admin Dose 50 MLS/HR; Start 01/07/17 at 12:00 Vancomycin HCl 750 mg/Sodium Chloride 150 ml @ 75 mls/hr Q12H IVPB Last administered on 01/09/17 22:49; Admin Dose 75 MLS/HR; Start 01/09/17 at 11:00 Piperacillin Sod/ Tazobactam Sod (Zosyn 3.375gm/ 100 ml (Pmx)) 100 ml @ 200 mls /hr Q6 IVPB Last administered on 01/10/17 05:01; Admin Dose 200 MLS/HR; Start 01/09/17 at 12:00 Miscellaneous Information VANCO TROUGH @ 1,000 ON... ONCE ONCE XX ; Start at 10:00; Stop 01/10/17 at 10:01 Potassium Chloride 250 ml @ 62.5 mls/hr ONCE ONCE IVPB Last administered on 06:55; Admin Dose 62.5 MLS/HR; Start 01/10/17 at 07:00; Stop 01/10/17 at 10:59 Dextrose 1,000 ml @ 50 mls/hr Q20H IV ; Start 01/10/17 at 07:30 Magnesium Sulfate (Magnesium Sulfate 2 Gm/50 ml) 50 ml @ 25 mls/hr ONCE ONCE IVPB ; Start 01/10/17 at 07:30; Stop 01/10/17 at 09:29 RONNY VELÁZQUEZ Jan 10, 2017 07:51
[2017-01-10] MEDS: LEVETIRACETAM 1000 MG (PMX) 100 ML IVPB SCH (07:58)
--- NOTE | 2017-01-10 08:01 | PN ---
Date/Time of Note Date/Time of Note DATE: 01/10/17 TIME: 07:57 Assessment/Plan Lines/Catheters IV Catheter Type (from [facility]): A Line Urinary Cath still in place: Yes Assessment/Plan Chief Complaint/Hosp Course 1. Nonoliguric acute kidney injury with previously normal baseline creatinine. Etiology secondary to acute tubular necrosis due to severe anemia, ischemic hypoperfusion, shock. - Patient's renal function is improving. - continue current treatment plan, supportive care, renally dose all medications. 2. Anemia secondary to intra-abdominal bleed. The patient had a liver hematoma , capsular. The patient is status post multiple blood products. -monitor h/h, transfuse as needed 3. Volume overload. Chest x-ray shows pulmonary congestion. -Lasix with given with good urinary output. We will continue to give intermittent diuretic therapy as needed. -We will discontinue half NS 4. Hypernatremia. We will start the patient D5W at 50 cc an hour 3. Mineral bone disease. Will continue to monitor calcium, phosphorus levels. No need for phosphate binders at this time. 4. hypokalemia/hypomagnesemia. Monitor and replace as needed 5. Sepsis. status post shock, currently off pressor support. Continue current antibiotic regimen. 6. Ventilator dependent respiratory failure. Vent settings have been reviewed. ABG has been reviewed. Continue to monitor. 7. Portal vein thrombosis. 8. Multiple liver lesions status post biopsy. Findings consistent with possible lymphoplasmacytic involvement will continue to monitor. Follow up with hematology. 9. Uterine mass. Followup with Gynecology/Oncology. Status post code arrest. Please note I spent over 45 minutes of critical care time with this patient. Problems: Subjective 24 Hr Interval Summary Free Text/Dictation Patient was extubated yesterday. Currently on BiPAP. Patient received Lasix yesterday with good urinary output. Exam/Review of Systems Vital Signs Vitals Vital Signs Date Time Temp Pulse Resp B/P Pulse Ox O2 Delivery O2 Flow Rate FiO2 01/10/17 06:00 67 148/65 98 BIPAP 01/10/17 05:10 30 01/10/17 04:00 98.2 01/10/17 00:00 15 01/09/17 11:15 5.0 Intake and Output 01/09/17 01/09/17 01/10/17 15:00 23:00 07:00 Intake Total 812.5 ml 570 ml 650 ml Output Total 1600 ml 2025 ml 750 ml Balance -787.5 ml -1455 ml -100 ml Exam HEENT: Head is normocephalic. Pupils are reactive to light. NECK: Supple. HEART: Regular rate. LUNGS: Show diminished breath sounds at base. ABDOMEN: Soft, nontender to palpation. No rebound or guarding. EXTREMITIES: Negative for clubbing, cyanosis, no edema. DERMATOLOGIC: No rashes. MUSCULOSKELETAL: No joint effusions. NEUROLOGIC: No change in exam. Results Result Diagram: 01/10/17 0500 01/10/17 0500 Results 24 hrs Laboratory Tests Test 01/09/17 10:15 01/09/17 16:36 01/09/17 18:12 01/09/17 20:10 Blood Gas Specimen Source Blood arterial Blood arterial Arterial Blood Date Drawn 01/09/2017 10:20:32 AM 01/09/2017 8:15:55 PM Arterial Blood pH (Temp corrected) 7.449 7.457 H Arterial Blood pCO2 (Temp correct) 36.5 39.0 Arterial Blood pO2 (Temp corrected) 76.0 L 111.3 H Arterial Blood HCO3 24.7 26.9 H Arterial Blood Base Excess 0.9 2.9 Arterial Blood Oxygen Saturation 94.6 L 97.4 [place] Test N/A N/A Arterial Blood Gas Puncture Site A-Line A-Line Arterial Blood Carboxyhemoglobin 0.3 0.3 Arterial Blood Methemoglobin 0.1 0.3 Blood Gas A-a O2 Differential 95.0 H 129.1 H Oxyhemoglobin Percent 94.2 96.8 Total Hemoglobin 10.2 L 10.5 L Blood Gas Temperature 37.0 37.0 Blood Gas Actual Respiration Rate 23 18 Blood Gas Modality VENT - CPAP MASK - BIPAP FiO2 30.0 40.0 Blood Gas Low PEEP Setting 5.0 Blood Gas Pressure Support 10 10 Blood Gas Notified Whom JOSE COLLADO Blood Gas Notified Time 01/09/2017 10:30:51 AM 01/09/2017 8:26:36 PM Bedside Glucose 147 Potassium Level 3.2 L Blood Gas Respiration Rate 16.0 Blood Gas IPAP/EPAP Ratio 15/5 Test 01/10/17 05:00 White Blood Count 9.4 Red Blood Count 3.01 L Hemoglobin 9.3 L Hematocrit 29.2 L Mean Corpuscular Volume 97.0 Mean Corpuscular Hemoglobin 30.9 Mean Corpuscular Hemoglobin Concent 31.8 L Red Cell Distribution Width 19.4 H Platelet Count 239 Mean Platelet Volume 10.7 H Neutrophils % 76.7 Lymphocytes % 8.1 L Monocytes % 10.0 Eosinophils % 2.3 Basophils % 0.2 Nucleated Red Blood Cells % 0.4 H Neutrophils # 7.2 Lymphocytes # 0.8 Monocytes # 0.9 Eosinophils # 0.2 Basophils # 0.0 Nucleated Red Blood Cells # 0.0 Prothrombin Time 14.1 Prothrombin Time Ratio 1.1 INR International Normalized Ratio 1.09 Activated Partial Thromboplast Time 26.9 Fibrinogen 478.0 #H Sodium Level 146 H Potassium Level 2.8 *L Chloride Level 111 H Carbon Dioxide Level 28 Anion Gap 10 Blood Urea Nitrogen 16 Creatinine 0.85 Glucose Level 94 Calcium Level 8.2 L Phosphorus Level 2.6 Magnesium Level 1.5 L Medications Medications Current Medications Ondansetron HCl (Zofran Inj) 4 mg Q6H PRN IV NAUSEA AND/OR VOMITING Last administered on 01/05/17 02:20; Admin Dose 4 MG; Start 12/20/16 at 07:30 Acetaminophen (Tylenol Tab) 650 mg Q6H PRN PO PAIN LEVEL 1-3 OR FEVER Last administered on 01/09/17 17:07; Admin Dose 650 MG; Start 12/20/16 at 07:30 Morphine Sulfate (morphine) 4 mg Q4H PRN IV SEVERE PAIN LEVEL 7-10 Last administered on 01/10/17 06:47; Admin Dose 4 MG; Start 12/20/16 at 07:30 Amlodipine Besylate (Norvasc) 5 mg DAILY PO Last administered on 01/03/17 09: 01; Admin Dose 5 MG; Start 12/21/16 at 09:00 Acetaminophen/ Hydrocodone Bitart ([place] (5/325)) 1 tab Q6H PRN PO PAIN LEVEL 7 -10 Last administered on 01/03/17 21:54; Admin Dose 1 TAB; Start 12/30/16 at 18 :00 Hydromorphone HCl (Dilaudid) 1 mg Q4H PRN IV SEVERE PAIN LEVEL 7-10 Last administered on 01/05/17 02:21; Admin Dose 1 MG; Start 01/02/17 at 17:45 Docusate Sodium (Colace) 100 mg BID PO Last administered on 01/09/17 20:47; Admin Dose 100 MG; Start 01/03/17 at 21:00 Senna (Senokot) 1 tab BID PO Last administered on 01/09/17 20:47; Admin Dose 1 TAB; Start 01/03/17 at 21:00 Polyethylene Glycol 8.5 gm 8.5 gm DAILY PO Last administered on 01/03/17 17:36 ; Admin Dose 8.5 GM; Start 01/03/17 at 15:30 Levetiracetam 100 ml @ 400 mls/hr Q12 IVPB Last administered on 01/09/17 20: 47; Admin Dose 400 MLS/HR; Start 01/04/17 at 11:00 Norepinephrine/ Dextrose (Levophed/D5W) 500 ml @ 1.87 mls/hr TITRATE IV Last administered on 01/05/17 09:13; Admin Dose 28.12 MLS/HR; Start 01/04/17 at 11: 00 Lorazepam (Ativan) 1 mg Q1H PRN IV Seizures; Start 01/04/17 at 19:30 IV Flush (NS 10 ml) 10 ml PRN PRN IV FLUSH LINE; Start 01/04/17 at 20:00 Morphine Sulfate (morphine) 2 mg Q4H PRN IV pain Last administered on 02:54; Admin Dose 2 MG; Start 01/05/17 at 01:30 Pantoprazole (Protonix Iv) 40 mg DAILY@06 IV Last administered on 01/10/17 05: 01; Admin Dose 40 MG; Start 01/05/17 at 06:30 Lorazepam 1 mg 1 mg Q4H PRN IV agitation Last administered on 01/09/17 11:02; Admin Dose 1 MG; Start 01/05/17 at 07:00 Fentanyl (Sublimaze) 100 ml @ 2.5 mls/hr TITRATE IV Last administered on 15:27; Admin Dose 5 MLS/HR; Start 01/05/17 at 12:25 Hydralazine HCl 10 mg 10 mg Q2H PRN IV SBP >170 Last administered on 01/06/17 03:21; Admin Dose 10 MG; Start 01/06/17 at 03:00 Fluconazole/ Sodium Chloride 50 ml @ 50 mls/hr Q24H IVPB Last administered on 13:22; Admin Dose 50 MLS/HR; Start 01/07/17 at 12:00 Vancomycin HCl 750 mg/Sodium Chloride 150 ml @ 75 mls/hr Q12H IVPB Last administered on 01/09/17 22:49; Admin Dose 75 MLS/HR; Start 01/09/17 at 11:00 Piperacillin Sod/ Tazobactam Sod (Zosyn 3.375gm/ 100 ml (Pmx)) 100 ml @ 200 mls /hr Q6 IVPB Last administered on 01/10/17 05:01; Admin Dose 200 MLS/HR; Start 01/09/17 at 12:00 Miscellaneous Information VANCO TROUGH @ 1,000 ON... ONCE ONCE XX ; Start at 10:00; Stop 01/10/17 at 10:01 Potassium Chloride 250 ml @ 62.5 mls/hr ONCE ONCE IVPB Last administered on 06:55; Admin Dose 62.5 MLS/HR; Start 01/10/17 at 07:00; Stop 01/10/17 at 10:59 Dextrose 1,000 ml @ 50 mls/hr Q20H IV ; Start 01/10/17 at 07:30 Magnesium Sulfate (Magnesium Sulfate 2 Gm/50 ml) 50 ml @ 25 mls/hr ONCE ONCE IVPB ; Start 01/10/17 at 07:30; Stop 01/10/17 at 09:29 MILLY DAIGLE DO Jan 10, 2017 08:01
[2017-01-10] MEDS: LORAZEPAM 2 MG INJ IV PRN ×2 (08:38→18:18)
[2017-01-10] MEDS: SENNA TAB PO SCH ×2 (08:47→20:29)
[2017-01-10] MEDS: AMLODIPINE 5 MG TAB PO SCH (08:49)
[2017-01-10] MEDS: POLYETHYLENE GLYCOL 17 GM PACKET PO SCH (08:49)
[2017-01-10] MEDS: DEXTROSE 5% 1,000 ML IV SCH (08:51)
--- NOTE | 2017-01-10 09:55 | RADRPT ---
PROCEDURE: XR Chest. CLINICAL INDICATION: CHF TECHNIQUE: A single AP view of the chest was obtained. COMPARISON: Chest x-ray performed earlier on the same date FINDINGS: The tip of the enteric tube extends below the left diaphragm. There is a left upper extremity PICC line with tip near the cavoatrial junction. Lung volumes are low with compressive changes, vascular crowding and basilar atelectasis. No focal a irspace opacity, pleural effusion or pneumothorax is seen. The cardiomediastinal silhouette is with in normal limits for size. The osseous structures are unremarkable. IMPRESSION: 1. Low lung volumes with compressive changes and basilar atelectasis. No significant interval munoz e. 2. Tubes and lines, as described above. RPTAT: HH .Jasmina Harrison MD, Date Time Electronically viewed and signed by .Jasmina Harrison MD, on 01/10/2017 09:55 .G/
--- NOTE | 2017-01-10 11:22 | PN ---
Date/Time of Note Date/Time of Note DATE: 01/10/17 TIME: 11:06 Assessment/Plan VTE Prophylaxis VTE Prophylaxis Intervention: SCD's VTE Contraindication Reason: bleeding Lines/Catheters IV Catheter Type (from Nrsg): A Line Urinary Cath still in place: Yes Reason Cath still needed: urinary retention Assessment/Plan Chief Complaint/Hosp Course Bx of hepatic lesions do not detect any malignancy. 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 Hepatic hemorrhage seems to have been controlled. No further bleeding. Coagulation parameters are nl. No evidence of DIC at this time or in past. Uterine lesion not likely to be related to the hepatic process, but further evaluation is needed. Cannot r/o the poss of a leiomyosarcoma. Problems: (1) Portal vein thrombosis Status: Acute (2) Hepatic vein thrombosis Status: Acute (3) Anemia Status: Acute Qualifiers: Anemia type: other cause Other causes of anemia: other cause, not classified Qualified Code: D64.89 - Anemia due to other cause, not classified (4) Leukocytosis Status: Acute Qualifiers: Leukocytosis type: unspecified Qualified Code: D72.829 - Leukocytosis, unspecified type (5) Transaminitis Status: Acute (6) Pneumonia, community acquired Status: Acute (7) Pulmonary nodules Status: Acute (8) Uterine mass Status: Acute Subjective 24 Hr Interval Summary Free Text/Dictation Hematology/Oncology f/u. Subjective hx not possible: pt non-verbal Exam/Review of Systems Vital Signs Vitals Vital Signs Date Time Temp Pulse Resp B/P Pulse Ox O2 Delivery O2 Flow Rate FiO2 01/10/17 10:00 77 21 101/79 98 01/10/17 07:00 BIPAP 01/10/17 05:10 30 01/10/17 04:00 98.2 01/09/17 11:15 5.0 Intake and Output 01/09/17 01/09/17 01/10/17 15:00 23:00 07:00 Intake Total 812.5 ml 570 ml 650 ml Output Total 1600 ml 2025 ml 790 ml Balance -787.5 ml -1455 ml -140 ml Exam Constitutional: non-verbal Head: atraumatic, normocephalic Eyes: EOMI, nl sclera ENMT: intubated, nl external ears & nose Neck: non-tender, supple Respiratory: clear to auscultation Cardiovascular: nl pulses, regular rate and rhythm Gastrointestinal: other (distended, sl RUQ tenderness) Genitourinary - Female: nl external genitalia Musculoskeletal: nl extremities to inspection Extremities: normal pulses Neurological: unresponsive Skin: nl turgor, rash or lesions Lymph: nl lymph nodes Results Result Diagram: 01/10/17 0500 01/10/17 0500 Results 24 hrs Laboratory Tests Test 01/09/17 16:36 01/09/17 18:12 01/09/17 20:10 01/10/17 05:00 Bedside Glucose 147 Potassium Level 3.2 L 2.8 *L Blood Gas Specimen Source Blood arterial Arterial Blood Date Drawn 01/09/2017 8:15:55 PM Arterial Blood pH (Temp corrected) 7.457 H Arterial Blood pCO2 (Temp correct) 39.0 Arterial Blood pO2 (Temp corrected) 111.3 H Arterial Blood HCO3 26.9 H Arterial Blood Base Excess 2.9 Arterial Blood Oxygen Saturation 97.4 [place] Test N/A Arterial Blood Gas Puncture Site A-Line Arterial Blood Carboxyhemoglobin 0.3 Arterial Blood Methemoglobin 0.3 Blood Gas A-a O2 Differential 129.1 H Oxyhemoglobin Percent 96.8 Total Hemoglobin 10.5 L Blood Gas Temperature 37.0 Blood Gas Respiration Rate 16.0 Blood Gas Actual Respiration Rate 18 Blood Gas Modality MASK - BIPAP FiO2 40.0 Blood Gas Pressure Support 10 Blood Gas IPAP/EPAP Ratio 15/5 Blood Gas Notified Whom MA Blood Gas Notified Time 01/09/2017 8:26:36 PM White Blood Count 9.4 Red Blood Count 3.01 L Hemoglobin 9.3 L Hematocrit 29.2 L Mean Corpuscular Volume 97.0 Mean Corpuscular Hemoglobin 30.9 Mean Corpuscular Hemoglobin Concent 31.8 L Red Cell Distribution Width 19.4 H Platelet Count 239 Mean Platelet Volume 10.7 H Neutrophils % 76.7 Lymphocytes % 8.1 L Monocytes % 10.0 Eosinophils % 2.3 Basophils % 0.2 Nucleated Red Blood Cells % 0.4 H Neutrophils # 7.2 Lymphocytes # 0.8 Monocytes # 0.9 Eosinophils # 0.2 Basophils # 0.0 Nucleated Red Blood Cells # 0.0 Prothrombin Time 14.1 Prothrombin Time Ratio 1.1 INR International Normalized Ratio 1.09 Activated Partial Thromboplast Time 26.9 Fibrinogen 478.0 #H Sodium Level 146 H Chloride Level 111 H Carbon Dioxide Level 28 Anion Gap 10 Blood Urea Nitrogen 16 Creatinine 0.85 Glucose Level 94 Calcium Level 8.2 L Phosphorus Level 2.6 Magnesium Level 1.5 L Medications Medications Current Medications Ondansetron HCl (Zofran Inj) 4 mg Q6H PRN IV NAUSEA AND/OR VOMITING Last administered on 01/05/17 02:20; Admin Dose 4 MG; Start 12/20/16 at 07:30 Acetaminophen (Tylenol Tab) 650 mg Q6H PRN PO PAIN LEVEL 1-3 OR FEVER Last administered on 01/09/17 17:07; Admin Dose 650 MG; Start 12/20/16 at 07:30 Morphine Sulfate (morphine) 4 mg Q4H PRN IV SEVERE PAIN LEVEL 7-10 Last administered on 01/10/17 06:47; Admin Dose 4 MG; Start 12/20/16 at 07:30 Amlodipine Besylate (Norvasc) 5 mg DAILY PO Last administered on 01/10/17 08: 49; Admin Dose 5 MG; Start 12/21/16 at 09:00 Acetaminophen/ Hydrocodone Bitart ([place] (5/325)) 1 tab Q6H PRN PO PAIN LEVEL 7 -10 Last administered on 01/03/17 21:54; Admin Dose 1 TAB; Start 12/30/16 at 18 :00 Hydromorphone HCl (Dilaudid) 1 mg Q4H PRN IV SEVERE PAIN LEVEL 7-10 Last administered on 01/05/17 02:21; Admin Dose 1 MG; Start 01/02/17 at 17:45 Senna (Senokot) 1 tab BID PO Last administered on 01/10/17 08:47; Admin Dose 1 TAB; Start 01/03/17 at 21:00 Polyethylene Glycol 8.5 gm 8.5 gm DAILY PO Last administered on 01/10/17 08:49 ; Admin Dose 8.5 GM; Start 01/03/17 at 15:30 Levetiracetam 100 ml @ 400 mls/hr Q12 IVPB Last administered on 01/10/17 07: 58; Admin Dose 400 MLS/HR; Start 01/04/17 at 11:00 Norepinephrine/ Dextrose (Levophed/D5W) 500 ml @ 1.87 mls/hr TITRATE IV Last administered on 01/05/17 09:13; Admin Dose 28.12 MLS/HR; Start 01/04/17 at 11: 00 Lorazepam (Ativan) 1 mg Q1H PRN IV Seizures Last administered on 01/10/17 08: 38; Admin Dose 1 MG; Start 01/04/17 at 19:30 IV Flush (NS 10 ml) 10 ml PRN PRN IV FLUSH LINE; Start 01/04/17 at 20:00 Morphine Sulfate (morphine) 2 mg Q4H PRN IV pain Last administered on 02:54; Admin Dose 2 MG; Start 01/05/17 at 01:30 Pantoprazole (Protonix Iv) 40 mg DAILY@06 IV Last administered on 01/10/17 05: 01; Admin Dose 40 MG; Start 01/05/17 at 06:30 Lorazepam 1 mg 1 mg Q4H PRN IV agitation Last administered on 01/09/17 11:02; Admin Dose 1 MG; Start 01/05/17 at 07:00 Fentanyl (Sublimaze) 100 ml @ 2.5 mls/hr TITRATE IV Last administered on 15:27; Admin Dose 5 MLS/HR; Start 01/05/17 at 12:25 Hydralazine HCl 10 mg 10 mg Q2H PRN IV SBP >170 Last administered on 01/06/17 03:21; Admin Dose 10 MG; Start 01/06/17 at 03:00 Fluconazole/ Sodium Chloride 50 ml @ 50 mls/hr Q24H IVPB Last administered on 13:22; Admin Dose 50 MLS/HR; Start 01/07/17 at 12:00 Vancomycin HCl 750 mg/Sodium Chloride 150 ml @ 75 mls/hr Q12H IVPB Last administered on 01/09/17 22:49; Admin Dose 75 MLS/HR; Start 01/09/17 at 11:00 Piperacillin Sod/ Tazobactam Sod 100 ml @ 200 mls/hr Q6 IVPB Last administered on 01/10/17 05:01; Admin Dose 200 MLS/HR; Start 01/09/17 at 12:00 Dextrose (D5W) 1,000 ml @ 50 mls/hr Q20H IV Last administered on 01/10/17t 08: 51; Admin Dose 50 MLS/HR; Start 01/10/17 at 07:30 Docusate Sodium (Colace Liquid Cup) 100 mg BID NGT ; Start 01/10/17 at 10:00 ECTOR GHOSH MD Jan 10, 2017 11:19
[2017-01-10] MEDS: VANCOMYCIN 750 MG in SOD CHLORIDE 0.9% 150 ML IVPB SCH ×2 (12:22→22:46)
[2017-01-10] MEDS: FLUCONAZOLE 100 MG/NS (PMX) 50 ML IVPB SCH (12:23)
[2017-01-10] MEDS: DOCUSATE SODIUM 10 MG/ML (10ML CUP) NGT SCH ×2 (12:45→20:29)
--- NOTE | 2017-01-10 13:02 | CONS ---
Date/Time of Note Date/Time of Note DATE: 01/10/17 TIME: 13:02 Assessment/Plan Assessment/Plan Chief Complaint/Hosp Course Assessment 1. Acute respiratory failure managed by pulmonary 2. Anemia acute CT scan Intraabdominal hemorrhage Very large mixed density acute subcapsular hematoma of the liver with moderate blood seen throughout the abdomen and pelvis. Right lower lobe atelectasis or infiltrate and small bilateral effusions. Horseshoe kidneys 3. Transaminitis 4. 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 COMMENT: This case has been reviewed by Dr. Carlos Garcia of [facility] who essentially concurs with our interpretation and he states that the histopathological features are suggestive of but not characteristic for inflammatory (myofibroblastic) pseudotumor, and due to difficulty in assessing IgG4/IgG ratio due to diffuse background staining a diagnosis of sclerosing cholangitis, which can be seen in IgG4-associated liver disease cannot be made at this time. Please see attached consultation report. 5. Portal vein thrombosis Reommendation: 1. monitor hemoglobin and hematocrit and transfuse 1 unit PRBC if HGB <7.5 ,2 units PRBC hemoglobin less than 7 2. liver biopsy is unrevealing. I would recommend Heme/Onc consult to determine next steps in w/u of his liver lesions if necessary. 3. trend liver enzymes ,elevation of ast,alt could be attributed to subcapsular hematoma 4. continue NG feeding Problems: Consultation Date/Type/Reason Admit Date/Time Dec 19, 2016 at 21:34 Initial Consult Date 12/26/16 Type of Consultation: GI Referring Provider: KAHLIL MARTEL 24 HR Interval Summary Free Text/Dictation No acute changes, remains on BiPAP, alert follows commands and in no distress. No fevers. Exam/Review of Systems Vital Signs Vitals Vital Signs Date Time Temp Pulse Resp B/P Pulse Ox O2 Delivery O2 Flow Rate FiO2 01/10/17 12:00 79 01/10/17 10:00 21 101/79 98 01/10/17 07:00 BIPAP 01/10/17 05:10 30 01/10/17 04:00 98.2 01/09/17 11:15 5.0 Intake and Output 01/09/17 01/09/17 01/10/17 15:00 23:00 07:00 Intake Total 812.5 ml 570 ml 650 ml Output Total 1600 ml 2025 ml 790 ml Balance -787.5 ml -1455 ml -140 ml Exam Constitutional: alert, frail Psych: nl mood/affect, no complaints Head: atraumatic, normocephalic Eyes: EOMI, nl conjunctiva ENMT: mucosa pink and moist, nl external ears & nose, nl lips & teeth, nl nasal mucosa & septum Neck: non-tender, supple Respiratory: clear to auscultation, normal air movement Cardiovascular: nl pulses, regular rate and rhythm Gastrointestinal: bowel sounds, non-tender, soft Results Result Diagram: 01/10/17 0500 01/10/17 0500 Results 24 hrs Laboratory Tests Test 01/09/17 16:36 01/09/17 18:12 01/09/17 20:10 01/10/17 05:00 Bedside Glucose 147 Potassium Level 3.2 L 2.8 *L Blood Gas Specimen Source Blood arterial Arterial Blood Date Drawn 01/09/2017 8:15:55 PM Arterial Blood pH (Temp corrected) 7.457 H Arterial Blood pCO2 (Temp correct) 39.0 Arterial Blood pO2 (Temp corrected) 111.3 H Arterial Blood HCO3 26.9 H Arterial Blood Base Excess 2.9 Arterial Blood Oxygen Saturation 97.4 [place] Test N/A Arterial Blood Gas Puncture Site A-Line Arterial Blood Carboxyhemoglobin 0.3 Arterial Blood Methemoglobin 0.3 Blood Gas A-a O2 Differential 129.1 H Oxyhemoglobin Percent 96.8 Total Hemoglobin 10.5 L Blood Gas Temperature 37.0 Blood Gas Respiration Rate 16.0 Blood Gas Actual Respiration Rate 18 Blood Gas Modality MASK - BIPAP FiO2 40.0 Blood Gas Pressure Support 10 Blood Gas IPAP/EPAP Ratio 15/5 Blood Gas Notified Whom MA Blood Gas Notified Time 01/09/2017 8:26:36 PM White Blood Count 9.4 Red Blood Count 3.01 L Hemoglobin 9.3 L Hematocrit 29.2 L Mean Corpuscular Volume 97.0 Mean Corpuscular Hemoglobin 30.9 Mean Corpuscular Hemoglobin Concent 31.8 L Red Cell Distribution Width 19.4 H Platelet Count 239 Mean Platelet Volume 10.7 H Neutrophils % 76.7 Lymphocytes % 8.1 L Monocytes % 10.0 Eosinophils % 2.3 Basophils % 0.2 Nucleated Red Blood Cells % 0.4 H Neutrophils # 7.2 Lymphocytes # 0.8 Monocytes # 0.9 Eosinophils # 0.2 Basophils # 0.0 Nucleated Red Blood Cells # 0.0 Prothrombin Time 14.1 Prothrombin Time Ratio 1.1 INR International Normalized Ratio 1.09 Activated Partial Thromboplast Time 26.9 Fibrinogen 478.0 #H Sodium Level 146 H Chloride Level 111 H Carbon Dioxide Level 28 Anion Gap 10 Blood Urea Nitrogen 16 Creatinine 0.85 Glucose Level 94 Calcium Level 8.2 L Phosphorus Level 2.6 Magnesium Level 1.5 L Test 01/10/17 10:44 Vancomycin Level Trough 11.4 Medications Medications Current Medications Ondansetron HCl (Zofran Inj) 4 mg Q6H PRN IV NAUSEA AND/OR VOMITING Last administered on 01/05/17 02:20; Admin Dose 4 MG; Start 12/20/16 at 07:30 Acetaminophen (Tylenol Tab) 650 mg Q6H PRN PO PAIN LEVEL 1-3 OR FEVER Last administered on 01/09/17 17:07; Admin Dose 650 MG; Start 12/20/16 at 07:30 Morphine Sulfate (morphine) 4 mg Q4H PRN IV SEVERE PAIN LEVEL 7-10 Last administered on 01/10/17 06:47; Admin Dose 4 MG; Start 12/20/16 at 07:30 Amlodipine Besylate (Norvasc) 5 mg DAILY PO Last administered on 01/10/17 08: 49; Admin Dose 5 MG; Start 12/21/16 at 09:00 Acetaminophen/ Hydrocodone Bitart ([place] (5/325)) 1 tab Q6H PRN PO PAIN LEVEL 7 -10 Last administered on 01/03/17 21:54; Admin Dose 1 TAB; Start 12/30/16 at 18 :00 Hydromorphone HCl (Dilaudid) 1 mg Q4H PRN IV SEVERE PAIN LEVEL 7-10 Last administered on 01/05/17 02:21; Admin Dose 1 MG; Start 01/02/17 at 17:45 Senna (Senokot) 1 tab BID PO Last administered on 01/10/17 08:47; Admin Dose 1 TAB; Start 01/03/17 at 21:00 Polyethylene Glycol 8.5 gm 8.5 gm DAILY PO Last administered on 01/10/17 08:49 ; Admin Dose 8.5 GM; Start 01/03/17 at 15:30 Levetiracetam 100 ml @ 400 mls/hr Q12 IVPB Last administered on 01/10/17 07: 58; Admin Dose 400 MLS/HR; Start 01/04/17 at 11:00 Norepinephrine/ Dextrose (Levophed/D5W) 500 ml @ 1.87 mls/hr TITRATE IV Last administered on 01/05/17 09:13; Admin Dose 28.12 MLS/HR; Start 01/04/17 at 11: 00 Lorazepam (Ativan) 1 mg Q1H PRN IV Seizures Last administered on 01/10/17 08: 38; Admin Dose 1 MG; Start 01/04/17 at 19:30 IV Flush (NS 10 ml) 10 ml PRN PRN IV FLUSH LINE; Start 01/04/17 at 20:00 Morphine Sulfate (morphine) 2 mg Q4H PRN IV pain Last administered on 02:54; Admin Dose 2 MG; Start 01/05/17 at 01:30 Pantoprazole (Protonix Iv) 40 mg DAILY@06 IV Last administered on 01/10/17 05: 01; Admin Dose 40 MG; Start 01/05/17 at 06:30 Lorazepam 1 mg 1 mg Q4H PRN IV agitation Last administered on 01/09/17 11:02; Admin Dose 1 MG; Start 01/05/17 at 07:00 Fentanyl (Sublimaze) 100 ml @ 2.5 mls/hr TITRATE IV Last administered on 15:27; Admin Dose 5 MLS/HR; Start 01/05/17 at 12:25 Hydralazine HCl 10 mg 10 mg Q2H PRN IV SBP >170 Last administered on 01/06/17 03:21; Admin Dose 10 MG; Start 01/06/17 at 03:00 Fluconazole/ Sodium Chloride 50 ml @ 50 mls/hr Q24H IVPB Last administered on 12:23; Admin Dose 50 MLS/HR; Start 01/07/17 at 12:00 Vancomycin HCl 750 mg/Sodium Chloride 150 ml @ 75 mls/hr Q12H IVPB Last administered on 01/10/17 12:22; Admin Dose 75 MLS/HR; Start 01/09/17 at 11:00 Piperacillin Sod/ Tazobactam Sod 100 ml @ 200 mls/hr Q6 IVPB Last administered on 01/10/17 05:01; Admin Dose 200 MLS/HR; Start 01/09/17 at 12:00 Dextrose (D5W) 1,000 ml @ 50 mls/hr Q20H IV Last administered on 01/10/17 08: 51; Admin Dose 50 MLS/HR; Start 01/10/17 at 07:30 Docusate Sodium (Colace Liquid Cup) 100 mg BID NGT Last administered on 12:45; Admin Dose 100 MG; Start 01/10/17 at 10:00 JANKI RAUSCH MD Jan 10, 2017 13:02
--- NOTE | 2017-01-10 13:43 | CONS ---
Date/Time of Note Date/Time of Note DATE: 01/10/17 TIME: 13:41 Assessment/Plan Assessment/Plan Chief Complaint/Hosp Course SUBJECTIVE: No acute changes, remains on BiPAP, alert follows commands and in no distress. No fevers. MICROBIOLOGY: Sputum cx + C alb. INDWELLINGS: Lau catheter, A-line, and PICC line. ANTIMICROBIALS: 1. Vancomycin. 2. Zosyn. 3. Diflucan PHYSICAL EXAMINATION: GENERAL: This is a well-developed, obese, middle-aged woman who is in no distress HEENT: Head atraumatic, normocephalic. Sclerae anicteric. NECK: Supple. CHEST: Rise symmetrical. Breath sounds diminished to bases. HEART: S1, S2. ABDOMEN: Soft. Bowel tones present. EXTREMITIES: With trace edema. ASSESSMENT: 1. S/P sepsis with shock, possibly also hypovolemic==> off pressors. 2. Acute respiratory failure, status post extubated 01/09/17. 3. Severe bilateral pneumonia. 4. Acute anemia, status post liver biopsy with massive subcapsular hepatic hematoma. 5. 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 6. Pelvic mass. PLAN: Remains stable, continue abx, transfuse as needed, follow recommendations of consultants ==> pending final work up DW staff Problems: Consultation Date/Type/Reason Admit Date/Time Dec 19, 2016 at 21:34 Initial Consult Date 12/20/16 Type of Consultation: ID Referring Provider: KAHLIL MARTEL Exam/Review of Systems Vital Signs Vitals Vital Signs Date Time Temp Pulse Resp B/P Pulse Ox O2 Delivery O2 Flow Rate FiO2 01/10/17 12:00 79 01/10/17 10:00 21 101/79 98 01/10/17 07:00 BIPAP 01/10/17 05:10 30 01/10/17 04:00 98.2 01/09/17 11:15 5.0 Intake and Output 01/09/17 01/09/17 01/10/17 15:00 23:00 07:00 Intake Total 812.5 ml 570 ml 650 ml Output Total 1600 ml 2025 ml 790 ml Balance -787.5 ml -1455 ml -140 ml Results Result Diagram: 01/10/17 0500 01/10/17 0500 Results 24 hrs Laboratory Tests Test 01/09/17 16:36 01/09/17 18:12 01/09/17 20:10 01/10/17 05:00 Bedside Glucose 147 Potassium Level 3.2 L 2.8 *L Blood Gas Specimen Source Blood arterial Arterial Blood Date Drawn 01/09/2017 8:15:55 PM Arterial Blood pH (Temp corrected) 7.457 H Arterial Blood pCO2 (Temp correct) 39.0 Arterial Blood pO2 (Temp corrected) 111.3 H Arterial Blood HCO3 26.9 H Arterial Blood Base Excess 2.9 Arterial Blood Oxygen Saturation 97.4 [place] Test N/A Arterial Blood Gas Puncture Site A-Line Arterial Blood Carboxyhemoglobin 0.3 Arterial Blood Methemoglobin 0.3 Blood Gas A-a O2 Differential 129.1 H Oxyhemoglobin Percent 96.8 Total Hemoglobin 10.5 L Blood Gas Temperature 37.0 Blood Gas Respiration Rate 16.0 Blood Gas Actual Respiration Rate 18 Blood Gas Modality MASK - BIPAP FiO2 40.0 Blood Gas Pressure Support 10 Blood Gas IPAP/EPAP Ratio 15/5 Blood Gas Notified Whom MA Blood Gas Notified Time 01/09/2017 8:26:36 PM White Blood Count 9.4 Red Blood Count 3.01 L Hemoglobin 9.3 L Hematocrit 29.2 L Mean Corpuscular Volume 97.0 Mean Corpuscular Hemoglobin 30.9 Mean Corpuscular Hemoglobin Concent 31.8 L Red Cell Distribution Width 19.4 H Platelet Count 239 Mean Platelet Volume 10.7 H Neutrophils % 76.7 Lymphocytes % 8.1 L Monocytes % 10.0 Eosinophils % 2.3 Basophils % 0.2 Nucleated Red Blood Cells % 0.4 H Neutrophils # 7.2 Lymphocytes # 0.8 Monocytes # 0.9 Eosinophils # 0.2 Basophils # 0.0 Nucleated Red Blood Cells # 0.0 Prothrombin Time 14.1 Prothrombin Time Ratio 1.1 INR International Normalized Ratio 1.09 Activated Partial Thromboplast Time 26.9 Fibrinogen 478.0 #H Sodium Level 146 H Chloride Level 111 H Carbon Dioxide Level 28 Anion Gap 10 Blood Urea Nitrogen 16 Creatinine 0.85 Glucose Level 94 Calcium Level 8.2 L Phosphorus Level 2.6 Magnesium Level 1.5 L Test 01/10/17 10:44 Vancomycin Level Trough 11.4 Medications Medications Current Medications Ondansetron HCl (Zofran Inj) 4 mg Q6H PRN IV NAUSEA AND/OR VOMITING Last administered on 01/05/17 02:20; Admin Dose 4 MG; Start 12/20/16 at 07:30 Acetaminophen (Tylenol Tab) 650 mg Q6H PRN PO PAIN LEVEL 1-3 OR FEVER Last administered on 01/09/17 17:07; Admin Dose 650 MG; Start 12/20/16 at 07:30 Morphine Sulfate (morphine) 4 mg Q4H PRN IV SEVERE PAIN LEVEL 7-10 Last administered on 01/10/17 06:47; Admin Dose 4 MG; Start 12/20/16 at 07:30 Amlodipine Besylate (Norvasc) 5 mg DAILY PO Last administered on 01/10/17 08: 49; Admin Dose 5 MG; Start 12/21/16 at 09:00 Acetaminophen/ Hydrocodone Bitart ([place] (5/325)) 1 tab Q6H PRN PO PAIN LEVEL 7 -10 Last administered on 01/03/17 21:54; Admin Dose 1 TAB; Start 12/30/16 at 18 :00 Hydromorphone HCl (Dilaudid) 1 mg Q4H PRN IV SEVERE PAIN LEVEL 7-10 Last administered on 01/05/17 02:21; Admin Dose 1 MG; Start 01/02/17 at 17:45 Senna (Senokot) 1 tab BID PO Last administered on 01/10/17 08:47; Admin Dose 1 TAB; Start 01/03/17 at 21:00 Polyethylene Glycol 8.5 gm 8.5 gm DAILY PO Last administered on 01/10/17 08:49 ; Admin Dose 8.5 GM; Start 01/03/17 at 15:30 Levetiracetam 100 ml @ 400 mls/hr Q12 IVPB Last administered on 01/10/17 07: 58; Admin Dose 400 MLS/HR; Start 01/04/17 at 11:00 Norepinephrine/ Dextrose (Levophed/D5W) 500 ml @ 1.87 mls/hr TITRATE IV Last administered on 01/05/17 09:13; Admin Dose 28.12 MLS/HR; Start 01/04/17 at 11: 00 Lorazepam (Ativan) 1 mg Q1H PRN IV Seizures Last administered on 01/10/17 08: 38; Admin Dose 1 MG; Start 01/04/17 at 19:30 IV Flush (NS 10 ml) 10 ml PRN PRN IV FLUSH LINE; Start 01/04/17 at 20:00 Morphine Sulfate (morphine) 2 mg Q4H PRN IV pain Last administered on 02:54; Admin Dose 2 MG; Start 01/05/17 at 01:30 Pantoprazole (Protonix Iv) 40 mg DAILY@06 IV Last administered on 01/10/17 05: 01; Admin Dose 40 MG; Start 01/05/17 at 06:30 Lorazepam 1 mg 1 mg Q4H PRN IV agitation Last administered on 01/09/17 11:02; Admin Dose 1 MG; Start 01/05/17 at 07:00 Fentanyl (Sublimaze) 100 ml @ 2.5 mls/hr TITRATE IV Last administered on 15:27; Admin Dose 5 MLS/HR; Start 01/05/17 at 12:25 Hydralazine HCl 10 mg 10 mg Q2H PRN IV SBP >170 Last administered on 01/06/17 03:21; Admin Dose 10 MG; Start 01/06/17 at 03:00 Fluconazole/ Sodium Chloride 50 ml @ 50 mls/hr Q24H IVPB Last administered on 12:23; Admin Dose 50 MLS/HR; Start 01/07/17 at 12:00 Vancomycin HCl 750 mg/Sodium Chloride 150 ml @ 75 mls/hr Q12H IVPB Last administered on 01/10/17 12:22; Admin Dose 75 MLS/HR; Start 01/09/17 at 11:00 Piperacillin Sod/ Tazobactam Sod 100 ml @ 200 mls/hr Q6 IVPB Last administered on 01/10/17 13:18; Admin Dose 200 MLS/HR; Start 01/09/17 at 12:00 Dextrose (D5W) 1,000 ml @ 50 mls/hr Q20H IV Last administered on 01/10/17 08: 51; Admin Dose 50 MLS/HR; Start 01/10/17 at 07:30 Docusate Sodium (Colace Liquid Cup) 100 mg BID NGT Last administered on 12:45; Admin Dose 100 MG; Start 01/10/17 at 10:00 NANCY HULL NP Jan 10, 2017 13:43
--- NOTE | 2017-01-10 14:06 | PN ---
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 Initial imaging was concerning for multiple liver lesions, pulmonary nodules, as well as a uterine mass. She was started on anticoagulation for her thrombosis, while she underwent further workup for her right-sided liver masses to rule out a metastatic process. She needed an MRI with gadolinium contrast, however she developed acute renal insufficiency from contrast versus vancomycin, and we had to wait for renal function to normalize before she could get the MRI. She got the MRI and subsequently underwent a liver biopsy. Pathology shows no malignancy but concern for inflamatory pseudotumor like sclerosing cholangitis However in the interim, patient decompensated; initially complaining of her right upper quadrant pain after the biopsy , was found to have a capsular hematoma thought to be from the location of biopsy with moderate blood seen throughout the abdomen and pelvis. She was also found to have severe coagulopathy concerning for DIC, she developed severe shock with multiorgan failure and was intubated and sent to ICU. She is being managed now as follows : 1. Severe systemic shock likely hypovolemic from acute intra-abdominal hemorrhage / subcapsular hepatic hematoma causing severe coagulopathy: improved / off pressors 2. Resp failure: successfully extubated 01/09/17 3. Acute encephalopathy secondary to #4: improving 4. Recurrence of acute kidney injury secondary to #1: improving 5. 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 Hypertension: fluctuating control 7. Diffuse venous thrombosis to include hepatic, portal, and right upper extremity veins 8. Status post alpha hemolytic strep bacteremia 9. Solitary seizure episode likely secondary to #1 10. Acute transaminitis and coagulopathy secondary to subcapsular hematoma s/ p status post hepatic artery ligation versus embolization via IR : Improving 11. Pulmonary nodules 2/2 jenny Pneumonia, ?resolved 12. Debility Plan: * Resp status is still dicey, remain in ICU / gentle diuresis * Continue NG tube feedings * Serial labs and replacement of blood prod FFP / Vit K / PRBC / Platelets as indicated / appreciate hematology input and help * Monitor renal and hepatic function / Nephro managing * Per report patient is status post hepatic artery embolization and hence is high risk for hepatic failure as she already had a hepatic vein thrombosis. Closely monitor. * Patient remains off anticoagulation d/t bleeding * Patient continues on abx per ID * Will d/c Keppra as seizure was provoked, with no further seizures * Regarding uterine lesion, patient is going to total hysterectomy and possible salpingo-oophorectomy with mass excision and biopsy when stable Prophylaxis: SCDs/IV PPI Prognosis: Guarded CC time >30mins Exam/Review of Systems Vital Signs Vitals Vital Signs Date Time Temp Pulse Resp B/P Pulse Ox O2 Delivery O2 Flow Rate FiO2 01/10/17 12:00 79 01/10/17 10:00 21 101/79 98 01/10/17 07:00 BIPAP 01/10/17 05:10 30 01/10/17 04:00 98.2 01/09/17 11:15 5.0 Intake and Output 01/09/17 01/09/17 01/10/17 15:00 23:00 07:00 Intake Total 812.5 ml 570 ml 650 ml Output Total 1600 ml 2025 ml 790 ml Balance -787.5 ml -1455 ml -140 ml Exam Constitutional: alert, distress (resp/ anxiety) Psych: anxiety Head: normocephalic Eyes: PERRL ENMT: other, No mucosa pink and moist Respiratory: diminished breath sounds, wheezing Cardiovascular: No regular rate and rhythm (mild tachy) Gastrointestinal: distended, soft, No tender Extremities: edema Neurological: lethargic Results Result Diagram: 01/10/17 0500 01/10/17 0500 Results 24 hrs Laboratory Tests Test 01/09/17 16:36 01/09/17 18:12 01/09/17 20:10 01/10/17 05:00 Bedside Glucose 147 Potassium Level 3.2 L 2.8 *L Blood Gas Specimen Source Blood arterial Arterial Blood Date Drawn 01/09/2017 8:15:55 PM Arterial Blood pH (Temp corrected) 7.457 H Arterial Blood pCO2 (Temp correct) 39.0 Arterial Blood pO2 (Temp corrected) 111.3 H Arterial Blood HCO3 26.9 H Arterial Blood Base Excess 2.9 Arterial Blood Oxygen Saturation 97.4 [place] Test N/A Arterial Blood Gas Puncture Site A-Line Arterial Blood Carboxyhemoglobin 0.3 Arterial Blood Methemoglobin 0.3 Blood Gas A-a O2 Differential 129.1 H Oxyhemoglobin Percent 96.8 Total Hemoglobin 10.5 L Blood Gas Temperature 37.0 Blood Gas Respiration Rate 16.0 Blood Gas Actual Respiration Rate 18 Blood Gas Modality MASK - BIPAP FiO2 40.0 Blood Gas Pressure Support 10 Blood Gas IPAP/EPAP Ratio 15/5 Blood Gas Notified Whom SD Blood Gas Notified Time 01/09/2017 8:26:36 PM White Blood Count 9.4 Red Blood Count 3.01 L Hemoglobin 9.3 L Hematocrit 29.2 L Mean Corpuscular Volume 97.0 Mean Corpuscular Hemoglobin 30.9 Mean Corpuscular Hemoglobin Concent 31.8 L Red Cell Distribution Width 19.4 H Platelet Count 239 Mean Platelet Volume 10.7 H Neutrophils % 76.7 Lymphocytes % 8.1 L Monocytes % 10.0 Eosinophils % 2.3 Basophils % 0.2 Nucleated Red Blood Cells % 0.4 H Neutrophils # 7.2 Lymphocytes # 0.8 Monocytes # 0.9 Eosinophils # 0.2 Basophils # 0.0 Nucleated Red Blood Cells # 0.0 Prothrombin Time 14.1 Prothrombin Time Ratio 1.1 INR International Normalized Ratio 1.09 Activated Partial Thromboplast Time 26.9 Fibrinogen 478.0 #H Sodium Level 146 H Chloride Level 111 H Carbon Dioxide Level 28 Anion Gap 10 Blood Urea Nitrogen 16 Creatinine 0.85 Glucose Level 94 Calcium Level 8.2 L Phosphorus Level 2.6 Magnesium Level 1.5 L Test 01/10/17 10:44 Vancomycin Level Trough 11.4 Medications Medications Current Medications Ondansetron HCl (Zofran Inj) 4 mg Q6H PRN IV NAUSEA AND/OR VOMITING Last administered on 01/05/17 02:20; Admin Dose 4 MG; Start 12/20/16 at 07:30 Acetaminophen (Tylenol Tab) 650 mg Q6H PRN PO PAIN LEVEL 1-3 OR FEVER Last administered on 01/09/17 17:07; Admin Dose 650 MG; Start 12/20/16 at 07:30 Morphine Sulfate (morphine) 4 mg Q4H PRN IV SEVERE PAIN LEVEL 7-10 Last administered on 01/10/17 06:47; Admin Dose 4 MG; Start 12/20/16 at 07:30 Amlodipine Besylate (Norvasc) 5 mg DAILY PO Last administered on 01/10/17 08: 49; Admin Dose 5 MG; Start 12/21/16 at 09:00 Acetaminophen/ Hydrocodone Bitart ([place] (5/325)) 1 tab Q6H PRN PO PAIN LEVEL 7 -10 Last administered on 01/03/17 21:54; Admin Dose 1 TAB; Start 12/30/16 at 18 :00 Hydromorphone HCl (Dilaudid) 1 mg Q4H PRN IV SEVERE PAIN LEVEL 7-10 Last administered on 01/05/17 02:21; Admin Dose 1 MG; Start 01/02/17 at 17:45 Senna (Senokot) 1 tab BID PO Last administered on 01/10/17 08:47; Admin Dose 1 TAB; Start 01/03/17 at 21:00 Polyethylene Glycol 8.5 gm 8.5 gm DAILY PO Last administered on 01/10/17 08:49 ; Admin Dose 8.5 GM; Start 01/03/17 at 15:30 Levetiracetam 100 ml @ 400 mls/hr Q12 IVPB Last administered on 01/10/17 07: 58; Admin Dose 400 MLS/HR; Start 01/04/17 at 11:00 Norepinephrine/ Dextrose (Levophed/D5W) 500 ml @ 1.87 mls/hr TITRATE IV Last administered on 01/05/17 09:13; Admin Dose 28.12 MLS/HR; Start 01/04/17 at 11: 00 Lorazepam (Ativan) 1 mg Q1H PRN IV Seizures Last administered on 01/10/17 08: 38; Admin Dose 1 MG; Start 01/04/17 at 19:30 IV Flush (NS 10 ml) 10 ml PRN PRN IV FLUSH LINE; Start 01/04/17 at 20:00 Morphine Sulfate (morphine) 2 mg Q4H PRN IV pain Last administered on 02:54; Admin Dose 2 MG; Start 01/05/17 at 01:30 Pantoprazole (Protonix Iv) 40 mg DAILY@06 IV Last administered on 01/10/17 05: 01; Admin Dose 40 MG; Start 01/05/17 at 06:30 Lorazepam 1 mg 1 mg Q4H PRN IV agitation Last administered on 01/09/17 11:02; Admin Dose 1 MG; Start 01/05/17 at 07:00 Fentanyl (Sublimaze) 100 ml @ 2.5 mls/hr TITRATE IV Last administered on 15:27; Admin Dose 5 MLS/HR; Start 01/05/17 at 12:25 Hydralazine HCl 10 mg 10 mg Q2H PRN IV SBP >170 Last administered on 01/06/17 03:21; Admin Dose 10 MG; Start 01/06/17 at 03:00 Fluconazole/ Sodium Chloride 50 ml @ 50 mls/hr Q24H IVPB Last administered on 12:23; Admin Dose 50 MLS/HR; Start 01/07/17 at 12:00 Vancomycin HCl 750 mg/Sodium Chloride 150 ml @ 75 mls/hr Q12H IVPB Last administered on 01/10/17 12:22; Admin Dose 75 MLS/HR; Start 01/09/17 at 11:00 Piperacillin Sod/ Tazobactam Sod 100 ml @ 200 mls/hr Q6 IVPB Last administered on 01/10/17 13:18; Admin Dose 200 MLS/HR; Start 01/09/17 at 12:00 Dextrose (D5W) 1,000 ml @ 50 mls/hr Q20H IV Last administered on 01/10/17 08: 51; Admin Dose 50 MLS/HR; Start 01/10/17 at 07:30 Docusate Sodium (Colace Liquid Cup) 100 mg BID NGT Last administered on 12:45; Admin Dose 100 MG; Start 01/10/17 at 10:00 Procedures Procedures PROCEDURE: XR Chest. CLINICAL INDICATION: Respiratory failure TECHNIQUE: A single AP view of the chest was obtained. COMPARISON: Chest x-ray dated 01/08/2017 FINDINGS: The endotracheal tube has been removed. The tip of the enteric tube projects over the right upper quadrant. There is a left upper extremity PICC line with tip near the cavoatrial junction. Lung volumes are low with compressive changes, vascular crowding and basilar atelectasis. No focal airspace opacity, pleural effusion or pneumothorax is seen. The cardiomediastinal silhouette is within normal limits for size. The osseous structures are unremarkable. IMPRESSION: 1. Low lung volumes with compressive changes and basilar atelectasis. No significant interval change. 2. Tubes and lines, as described above. RPTAT: HH .Jasmina Harrison MD, Date Time Electronically viewed and signed by .Jasmina Harrison MD, on 01/10/2017 07 :46 .G/ CC: KAHLIL MARTEL BOLATITO M. Jan 10, 2017 13:49
[2017-01-10] MEDS: ALBUTEROL 0.083% (NEB) 2.5 MG/3 ML AMP HHN SCH ×2 (16:50→21:18)
[2017-01-10] MEDS: POTASSIUM CHLORIDE 50 ML IVPB PRN ×2 (18:19→20:46)
[2017-01-11] VITALS (41 sets, daily range): BP systolic 90–184; BP diastolic 64–104; PULSE 91–136; RESP 15–32
[2017-01-11] MEDS: ALBUTEROL 0.083% (NEB) 2.5 MG/3 ML AMP HHN SCH ×6 (01:11→21:09)
[2017-01-11] MEDS: morphine 4 MG/ML VIAL IV PRN ×2 (01:30→20:31)
[2017-01-11] MEDS: PIPER-TAZO 3.375 GM IV (PMX) 100 ML IVPB SCH ×3 (05:01→18:28)
[2017-01-11] MEDS: DEXTROSE 5% 1,000 ML IV SCH (05:01)
[2017-01-11] MEDS: PANTOPRAZOLE 40 MG INJ IV SCH (05:01)
[2017-01-11 05:11] LABS: ABNORMAL IP MESSAGE 1; BASOPHILS % 0.2 % (0.0-2.0); EOSINOPHILS # 0.1 10^3/ul (0.0-0.5); EOSINOPHILS % 1.5 % (0.0-7.0); HEMATOCRIT 31.9 % (37.0-47.0); HEMOGLOBIN 9.7 g/dl (12.0-16.0); LYMPHOCYTES # 0.6 10^3/ul (0.8-2.9); LYMPHOCYTES % 5.9 % (15.0-51.0); MEAN CORPUSCULAR HGB CONC 30.4 g/dl (32.0-37.0); MEAN CORPUSCULAR VOLUME 98.8 fl (82.0-101.0); MEAN PLATELET VOLUME 10.5 fl (7.4-10.4); MONOCYTE # 0.9 10^3/ul (0.3-0.9); MONOCYTES % 9.5 % (0.0-11.0); NEUTROPHIL # 7.6 10^3/ul (1.6-7.5); NEUTROPHILS % 81.1 % (39.0-77.0); NUCLEATED RED BLOOD CELLS% 0.4 /100WBC (0.0-0.0); PLATELET COUNT 285 10^3/UL (140-415); RED BLOOD COUNT 3.23 10^6/ul (4.20-5.40); RED CELL DISTRIBUTION WIDTH 19.6 % (11.5-14.5); WHITE BLOOD COUNT 9.4 10^3/ul (4.8-10.8)
[2017-01-11 05:14] LABS: ADD SCAN DIFF NO
[2017-01-11 05:34] LABS: CALCIUM 8.7 mg/dl (8.4-10.2); CREATININE 0.69 mg/dl (0.44-1.00); MAGNESIUM 1.8 mg/dl (1.7-2.5); PHOSPHORUS 2.2 mg/dl (2.5-4.9); POTASSIUM 3.1 mmol/L (3.5-5.1)
[2017-01-11] MEDS: POTASSIUM CHLORIDE 50 ML IVPB PRN ×6 (06:54→20:32)
[2017-01-11] MEDS ORDERED: MAGNESIUM SULFATE 2 GM/50 ML 50 ML IVPB ONE (07:00)
[2017-01-11] MEDS ORDERED: POTASSIUM PHOSPHATE 15 MM in SOD CHLORIDE 0.9% 250 ML IVPB ONE (07:00)
--- NOTE | 2017-01-11 07:38 | PN ---
Date/Time of Note Date/Time of Note DATE: 01/11/17 TIME: 07:34 Assessment/Plan Lines/Catheters IV Catheter Type (from [facility]): A Line Urinary Cath still in place: Yes Assessment/Plan Chief Complaint/Hosp Course 1. Nonoliguric acute kidney injury with previously normal baseline creatinine. Etiology secondary to acute tubular necrosis due to severe anemia, ischemic hypoperfusion, shock. - Patient's renal function is improving. - continue current treatment plan, supportive care, renally dose all medications. 2. Anemia secondary to intra-abdominal bleed. The patient had a liver hematoma , capsular. The patient is status post multiple blood products. -monitor h/h, transfuse as needed 3. Volume overload. Improving We will continue to give intermittent diuretic therapy as needed. 4. Hypernatremia. -Patient with 4 L free water deficit We will increase D5W 100 cc an hour -Monitor serial sodium levels 3. Mineral bone disease. Will continue to monitor calcium, phosphorus levels. No need for phosphate binders at this time. 4. hypokalemia/hypomagnesemia. Monitor and replace as needed 5. Sepsis. status post shock, currently off pressor support. Continue current antibiotic regimen. 6. Hypoxemic respiratory failure. Patient CPAP. Continue to monitor. Follow- up with pulmonary 7. Portal vein thrombosis. 8. Multiple liver lesions status post biopsy. Findings consistent with possible lymphoplasmacytic involvement will continue to monitor. Follow up with hematology. 9. Uterine mass. Followup with Gynecology/Oncology. Status post code arrest. Please note I spent over 45 minutes of critical care time with this patient. Problems: Subjective 24 Hr Interval Summary Free Text/Dictation Patient remains critically ill on BiPAP. Without NG tube. No other events noted. Exam/Review of Systems Vital Signs Vitals Vital Signs Date Time Temp Pulse Resp B/P Pulse Ox O2 Delivery O2 Flow Rate FiO2 01/11/17 05:38 111 99 30 01/11/17 05:00 24 179/89 BIPAP 01/11/17 03:29 10.0 01/10/17 20:00 98.5 Intake and Output 01/10/17 01/10/17 01/11/17 15:00 23:00 07:00 Intake Total 700 ml 800 ml 600 ml Output Total 635 ml 650 ml 350 ml Balance 65 ml 150 ml 250 ml Exam HEENT: Head is normocephalic. Pupils are reactive to light. NECK: Supple. HEART: Regular rate. LUNGS: Show diminished breath sounds at base. ABDOMEN: Soft, nontender to palpation. No rebound or guarding. EXTREMITIES: Negative for clubbing, cyanosis, no edema. DERMATOLOGIC: No rashes. MUSCULOSKELETAL: No joint effusions. NEUROLOGIC: No change in exam. Results Result Diagram: 01/11/17 0400 01/11/17 0400 Results 24 hrs Laboratory Tests Test 01/10/17 10:44 01/10/17 14:05 01/11/17 04:00 Vancomycin Level Trough 11.4 Potassium Level 3.4 L 3.1 L White Blood Count 9.4 Red Blood Count 3.23 L Hemoglobin 9.7 L Hematocrit 31.9 L Mean Corpuscular Volume 98.8 Mean Corpuscular Hemoglobin 30.0 Mean Corpuscular Hemoglobin Concent 30.4 L Red Cell Distribution Width 19.6 H Platelet Count 285 Mean Platelet Volume 10.5 H Neutrophils % 81.1 H Lymphocytes % 5.9 L Monocytes % 9.5 Eosinophils % 1.5 Basophils % 0.2 Nucleated Red Blood Cells % 0.4 H Neutrophils # 7.6 H Lymphocytes # 0.6 L Monocytes # 0.9 Eosinophils # 0.1 Basophils # 0.0 Nucleated Red Blood Cells # 0.0 Sodium Level 150 H Chloride Level 110 Carbon Dioxide Level 26 Anion Gap 17 #H Blood Urea Nitrogen 12 Creatinine 0.69 Glucose Level 91 Calcium Level 8.7 Phosphorus Level 2.2 L Magnesium Level 1.8 Medications Medications Current Medications Ondansetron HCl (Zofran Inj) 4 mg Q6H PRN IV NAUSEA AND/OR VOMITING Last administered on 01/05/17 02:20; Admin Dose 4 MG; Start 12/20/16 at 07:30 Acetaminophen (Tylenol Tab) 650 mg Q6H PRN PO PAIN LEVEL 1-3 OR FEVER Last administered on 01/09/17 17:07; Admin Dose 650 MG; Start 12/20/16 at 07:30 Morphine Sulfate (morphine) 4 mg Q4H PRN IV SEVERE PAIN LEVEL 7-10 Last administered on 01/11/17 01:30; Admin Dose 4 MG; Start 12/20/16 at 07:30 Amlodipine Besylate (Norvasc) 5 mg DAILY PO Last administered on 01/10/17 08: 49; Admin Dose 5 MG; Start 12/21/16 at 09:00 Acetaminophen/ Hydrocodone Bitart ([place] (5/325)) 1 tab Q6H PRN PO PAIN LEVEL 7 -10 Last administered on 01/03/17 21:54; Admin Dose 1 TAB; Start 12/30/16 at 18 :00 Hydromorphone HCl (Dilaudid) 1 mg Q4H PRN IV SEVERE PAIN LEVEL 7-10 Last administered on 01/05/17 02:21; Admin Dose 1 MG; Start 01/02/17 at 17:45 Senna (Senokot) 1 tab BID PO Last administered on 01/10/17 08:47; Admin Dose 1 TAB; Start 01/03/17 at 21:00 Polyethylene Glycol 8.5 gm 8.5 gm DAILY PO Last administered on 01/10/17 08:49 ; Admin Dose 8.5 GM; Start 01/03/17 at 15:30 Norepinephrine/ Dextrose (Levophed/D5W) 500 ml @ 1.87 mls/hr TITRATE IV Last administered on 01/05/17 09:13; Admin Dose 28.12 MLS/HR; Start 01/04/17 at 11: 00 Lorazepam (Ativan) 1 mg Q1H PRN IV Seizures Last administered on 01/10/17 18: 18; Admin Dose 1 MG; Start 01/04/17 at 19:30 IV Flush (NS 10 ml) 10 ml PRN PRN IV FLUSH LINE; Start 01/04/17 at 20:00 Morphine Sulfate (morphine) 2 mg Q4H PRN IV pain Last administered on 22:18; Admin Dose 2 MG; Start 01/05/17 at 01:30 Pantoprazole (Protonix Iv) 40 mg DAILY@06 IV Last administered on 01/11/17 05: 01; Admin Dose 40 MG; Start 01/05/17 at 06:30 Lorazepam 1 mg 1 mg Q4H PRN IV agitation Last administered on 01/09/17 11:02; Admin Dose 1 MG; Start 01/05/17 at 07:00 Fentanyl (Sublimaze) 100 ml @ 2.5 mls/hr TITRATE IV Last administered on 15:27; Admin Dose 5 MLS/HR; Start 01/05/17 at 12:25 Hydralazine HCl 10 mg 10 mg Q2H PRN IV SBP >170 Last administered on 01/06/17 03:21; Admin Dose 10 MG; Start 01/06/17 at 03:00 Fluconazole/ Sodium Chloride 50 ml @ 50 mls/hr Q24H IVPB Last administered on 12:23; Admin Dose 50 MLS/HR; Start 01/07/17 at 12:00 Vancomycin HCl 750 mg/Sodium Chloride 150 ml @ 75 mls/hr Q12H IVPB Last administered on 01/10/17 22:46; Admin Dose 75 MLS/HR; Start 01/09/17 at 11:00 Piperacillin Sod/ Tazobactam Sod (Zosyn 3.375gm/ 100 ml (Pmx)) 100 ml @ 200 mls /hr Q6 IVPB Last administered on 01/11/17 05:01; Admin Dose 200 MLS/HR; Start 01/09/17 at 12:00 Docusate Sodium 100 mg 100 mg BID NGT Last administered on 01/10/17 12:45; Admin Dose 100 MG; Start 01/10/17 at 10:00 Potassium Chloride 30 meq/ Dextrose 1,015 ml @ 100 mls/hr Q10H9M IV ; Start 01/11/17 at 07:00 Potassium Phosphate 15 mm/ Sodium Chloride 255 ml @ 63.75 mls/ hr ONCE ONCE IVPB ; Start 01/11/17 at 07:00; Stop 01/11/17 at 10:59 Magnesium Sulfate (Magnesium Sulfate 2 Gm/50 ml) 50 ml @ 25 mls/hr ONCE ONCE IVPB ; Start 01/11/17 at 07:00; Stop 01/11/17 at 08:59 MILLY DAIGLE DO Jan 11, 2017 07:37
[2017-01-11] MEDS: POTASSIUM CHLORIDE 30 MEQ in DEXTROSE 5% 1,000 ML IV SCH ×2 (08:39→17:09)
[2017-01-11] MEDS: POLYETHYLENE GLYCOL 17 GM PACKET PO SCH (08:40)
[2017-01-11] MEDS: SENNA TAB PO SCH ×2 (08:40→20:30)
[2017-01-11] MEDS: DOCUSATE SODIUM 10 MG/ML (10ML CUP) NGT SCH ×3 (08:40→20:30)
--- NOTE | 2017-01-11 08:57 | CONS ---
Date/Time of Note Date/Time of Note DATE: 01/11/17 TIME: 08:50 Assessment/Plan Assessment/Plan Chief Complaint/Hosp Course ID PROGRESS NOTE ABX DAY #8 => Vanco IV + Zosyn 24H INTERVAL SUMMARY * On bipap -> Extubated 01/09, VSS, no fevers, renal fx stable on current ABX ID ASSESSMENT: 51 yo Obese F admitted with: 1. SIRS s/p sepsis w/shock> s/p Aspiration event in setting (+)Szs, (+)Lactic acidosis, symptomatic anemia -> s/p PRBC Tx * ABX restarted 01/04/17 broad spectrum empiric coverage for HCAP 2. Hepatic lesion. Status post liver biopsy that revealed no abscess and no evidence of metastatic disease. * MICRO Source: LIVER MASS Sp Descrip: Microbiology GRAM STAIN Final POLYMORPH. LEUKOCYTE NONE SEEN . NO ORGANISM SEEN TISSUE (BIOPSY) CULTURE Final No growth after 3 day 3. Pelvic mass. The patient is being evaluated by Dr. Jaimes. 4. Respiratory failure -> bipap. 5. Anemia and acute renal failure. 6. Esophageal ulceration, per EGD. 3. Portal vein thrombosis. 4. HCAP -> Abnormal CT chest with multiple nodular airspace opacities. 5. Acute renal failure. 6. Anemia ABX ALLERGIES: KNDA INVASIVES: *PIV, CURRENT ABX: ABX DAY #8 => Vanco IV + Zosyn ID RECOMMENDATIONS: 1. Continue ABX -- further recs per clinical response, ID colleague team f/u . . Problems: Consultation Date/Type/Reason Admit Date/Time Dec 19, 2016 at 21:34 Initial Consult Date 12/26/16 Type of Consultation: ID Referring Provider: KAHLIL MARTEL Exam/Review of Systems Vital Signs Vitals Vital Signs Date Time Temp Pulse Resp B/P Pulse Ox O2 Delivery O2 Flow Rate FiO2 01/11/17 08:07 117 01/11/17 08:05 99 30 01/11/17 07:33 26 Venti Mask 9.0 01/11/17 05:00 179/89 01/10/17 20:00 98.5 Intake and Output 01/10/17 01/10/17 01/11/17 15:00 23:00 07:00 Intake Total 700 ml 800 ml 600 ml Output Total 635 ml 650 ml 350 ml Balance 65 ml 150 ml 250 ml Results Result Diagram: 01/11/17 0400 01/11/17 0400 Results 24 hrs Laboratory Tests Test 01/10/17 10:44 01/10/17 14:05 01/11/17 04:00 Vancomycin Level Trough 11.4 Potassium Level 3.4 L 3.1 L White Blood Count 9.4 Red Blood Count 3.23 L Hemoglobin 9.7 L Hematocrit 31.9 L Mean Corpuscular Volume 98.8 Mean Corpuscular Hemoglobin 30.0 Mean Corpuscular Hemoglobin Concent 30.4 L Red Cell Distribution Width 19.6 H Platelet Count 285 Mean Platelet Volume 10.5 H Neutrophils % 81.1 H Lymphocytes % 5.9 L Monocytes % 9.5 Eosinophils % 1.5 Basophils % 0.2 Nucleated Red Blood Cells % 0.4 H Neutrophils # 7.6 H Lymphocytes # 0.6 L Monocytes # 0.9 Eosinophils # 0.1 Basophils # 0.0 Nucleated Red Blood Cells # 0.0 Sodium Level 150 H Chloride Level 110 Carbon Dioxide Level 26 Anion Gap 17 #H Blood Urea Nitrogen 12 Creatinine 0.69 Glucose Level 91 Calcium Level 8.7 Phosphorus Level 2.2 L Magnesium Level 1.8 Medications Medications Current Medications Ondansetron HCl (Zofran Inj) 4 mg Q6H PRN IV NAUSEA AND/OR VOMITING Last administered on 01/05/17 02:20; Admin Dose 4 MG; Start 12/20/16 at 07:30 Acetaminophen (Tylenol Tab) 650 mg Q6H PRN PO PAIN LEVEL 1-3 OR FEVER Last administered on 01/09/17 17:07; Admin Dose 650 MG; Start 12/20/16 at 07:30 Morphine Sulfate (morphine) 4 mg Q4H PRN IV SEVERE PAIN LEVEL 7-10 Last administered on 01/11/17 01:30; Admin Dose 4 MG; Start 12/20/16 at 07:30 Amlodipine Besylate (Norvasc) 5 mg DAILY PO Last administered on 01/10/17 08: 49; Admin Dose 5 MG; Start 12/21/16 at 09:00 Acetaminophen/ Hydrocodone Bitart ([place] (5/325)) 1 tab Q6H PRN PO PAIN LEVEL 7 -10 Last administered on 01/03/17 21:54; Admin Dose 1 TAB; Start 12/30/16 at 18 :00 Hydromorphone HCl (Dilaudid) 1 mg Q4H PRN IV SEVERE PAIN LEVEL 7-10 Last administered on 01/05/17 02:21; Admin Dose 1 MG; Start 01/02/17 at 17:45 Senna (Senokot) 1 tab BID PO Last administered on 01/10/17 08:47; Admin Dose 1 TAB; Start 01/03/17 at 21:00 Polyethylene Glycol 8.5 gm 8.5 gm DAILY PO Last administered on 01/10/17 08:49 ; Admin Dose 8.5 GM; Start 01/03/17 at 15:30 Norepinephrine/ Dextrose (Levophed/D5W) 500 ml @ 1.87 mls/hr TITRATE IV Last administered on 01/05/17 09:13; Admin Dose 28.12 MLS/HR; Start 01/04/17 at 11: 00 Lorazepam (Ativan) 1 mg Q1H PRN IV Seizures Last administered on 01/10/17 18: 18; Admin Dose 1 MG; Start 01/04/17 at 19:30 IV Flush (NS 10 ml) 10 ml PRN PRN IV FLUSH LINE; Start 01/04/17 at 20:00 Morphine Sulfate (morphine) 2 mg Q4H PRN IV pain Last administered on 22:18; Admin Dose 2 MG; Start 01/05/17 at 01:30 Pantoprazole (Protonix Iv) 40 mg DAILY@06 IV Last administered on 01/11/17 05: 01; Admin Dose 40 MG; Start 01/05/17 at 06:30 Lorazepam 1 mg 1 mg Q4H PRN IV agitation Last administered on 01/09/17 11:02; Admin Dose 1 MG; Start 01/05/17 at 07:00 Fentanyl (Sublimaze) 100 ml @ 2.5 mls/hr TITRATE IV Last administered on 15:27; Admin Dose 5 MLS/HR; Start 01/05/17 at 12:25 Hydralazine HCl 10 mg 10 mg Q2H PRN IV SBP >170 Last administered on 01/06/17 03:21; Admin Dose 10 MG; Start 01/06/17 at 03:00 Fluconazole/ Sodium Chloride 50 ml @ 50 mls/hr Q24H IVPB Last administered on 12:23; Admin Dose 50 MLS/HR; Start 01/07/17 at 12:00 Vancomycin HCl 750 mg/Sodium Chloride 150 ml @ 75 mls/hr Q12H IVPB Last administered on 01/10/17 22:46; Admin Dose 75 MLS/HR; Start 01/09/17 at 11:00 Piperacillin Sod/ Tazobactam Sod (Zosyn 3.375gm/ 100 ml (Pmx)) 100 ml @ 200 mls /hr Q6 IVPB Last administered on 01/11/17 05:01; Admin Dose 200 MLS/HR; Start 01/09/17 at 12:00 Docusate Sodium 100 mg 100 mg BID NGT Last administered on 01/10/17 12:45; Admin Dose 100 MG; Start 01/10/17 at 10:00 Potassium Chloride 30 meq/ Dextrose 1,015 ml @ 100 mls/hr Q10H9M IV Last administered on 01/11/17 08:39; Admin Dose 100 MLS/HR; Start 01/11/17 at 07:00 Potassium Phosphate 15 mm/ Sodium Chloride 255 ml @ 63.75 mls/ hr ONCE ONCE IVPB Last administered on 01/11/17 08:38; Admin Dose 63.75 MLS/HR; Start at 07:00; Stop 01/11/17 at 10:59 Magnesium Sulfate (Magnesium Sulfate 2 Gm/50 ml) 50 ml @ 25 mls/hr ONCE ONCE IVPB Last administered on 01/11/17 08:38; Admin Dose 25 MLS/HR; Start 01/11/17 at 07:00; Stop 01/11/17 at 08:59 LASHONDA PATTERSON NP Jan 11, 2017 08:57
--- NOTE | 2017-01-11 09:19 | PN ---
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 Initial imaging was concerning for multiple liver lesions, pulmonary nodules, as well as a uterine mass. She was started on anticoagulation for her thrombosis, while she underwent further workup for her right-sided liver masses to rule out a metastatic process. She needed an MRI with gadolinium contrast, however she developed acute renal insufficiency from contrast versus vancomycin, and we had to wait for renal function to normalize before she could get the MRI. She got the MRI and subsequently underwent a liver biopsy. Pathology shows no malignancy but concern for inflamatory pseudotumor like sclerosing cholangitis However in the interim, patient decompensated; initially complaining of her right upper quadrant pain after the biopsy , was found to have a capsular hematoma thought to be from the location of biopsy with moderate blood seen throughout the abdomen and pelvis. She was also found to have severe coagulopathy concerning for DIC, she developed severe shock with multiorgan failure and was intubated and sent to ICU. She is being managed now as follows : 1. Severe systemic shock likely hypovolemic from acute intra-abdominal hemorrhage / subcapsular hepatic hematoma causing severe coagulopathy: improved / off pressors 2. Resp failure: successfully extubated 01/09/17, but having difficulty off bipap 3. Acute encephalopathy secondary to #4: improving 4. Recurrence of acute kidney injury secondary to #1: improving 5. 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 Hypertension: better control 7. Diffuse venous thrombosis to include hepatic, portal, and right upper extremity veins 8. Status post alpha hemolytic strep bacteremia 9. Solitary seizure episode likely secondary to #1 10. Acute transaminitis and coagulopathy secondary to subcapsular hematoma s/ p status post hepatic artery ligation versus embolization via IR : Improving 11. Maurice Pneumonia on admission with nodules 12. Debility Plan: * Resp status is still dicey, remain in ICU / gentle diuresis / patient prone to forming clots, will repeat chest CT with contrast if ok with nephrology * Continue NG tube feedings * D5w for hypernatremia per nephro * Per report patient is status post hepatic artery embolization and hence is high risk for hepatic failure as she already had a hepatic vein thrombosis. Closely monitor. * Patient remains off anticoagulation d/t bleeding * Patient continues on abx per ID * Will d/c Keppra as seizure was provoked, with no further seizures * Regarding uterine lesion, patient may benefit from total hysterectomy and possible salpingo-oophorectomy with mass excision and biopsy when stable Prophylaxis: SCDs/IV PPI Prognosis: Guarded CC time >30mins Subjective 24 Hr Interval Summary Free Text/Dictation Patient still having air hunger when off bipap despite continued diuresis Exam/Review of Systems Vital Signs Vitals Vital Signs Date Time Temp Pulse Resp B/P Pulse Ox O2 Delivery O2 Flow Rate FiO2 01/11/17 08:07 117 01/11/17 08:05 99 30 01/11/17 07:33 26 Venti Mask 9.0 01/11/17 05:00 179/89 01/10/17 20:00 98.5 Intake and Output 01/10/17 01/10/17 01/11/17 15:00 23:00 07:00 Intake Total 700 ml 800 ml 600 ml Output Total 635 ml 650 ml 350 ml Balance 65 ml 150 ml 250 ml Exam Constitutional: alert, distress (resp/ anxiety) Psych: anxiety Head: normocephalic Eyes: PERRL ENMT: other, No mucosa pink and moist Respiratory: diminished breath sounds, wheezing Cardiovascular: No regular rate and rhythm (mild tachy) Gastrointestinal: distended, soft, No tender Extremities: edema Neurological: lethargic Results Result Diagram: 01/11/17 0400 01/11/17 0400 Results 24 hrs Laboratory Tests Test 01/10/17 10:44 01/10/17 14:05 01/11/17 04:00 Vancomycin Level Trough 11.4 Potassium Level 3.4 L 3.1 L White Blood Count 9.4 Red Blood Count 3.23 L Hemoglobin 9.7 L Hematocrit 31.9 L Mean Corpuscular Volume 98.8 Mean Corpuscular Hemoglobin 30.0 Mean Corpuscular Hemoglobin Concent 30.4 L Red Cell Distribution Width 19.6 H Platelet Count 285 Mean Platelet Volume 10.5 H Neutrophils % 81.1 H Lymphocytes % 5.9 L Monocytes % 9.5 Eosinophils % 1.5 Basophils % 0.2 Nucleated Red Blood Cells % 0.4 H Neutrophils # 7.6 H Lymphocytes # 0.6 L Monocytes # 0.9 Eosinophils # 0.1 Basophils # 0.0 Nucleated Red Blood Cells # 0.0 Sodium Level 150 H Chloride Level 110 Carbon Dioxide Level 26 Anion Gap 17 #H Blood Urea Nitrogen 12 Creatinine 0.69 Glucose Level 91 Calcium Level 8.7 Phosphorus Level 2.2 L Magnesium Level 1.8 Medications Medications Current Medications Ondansetron HCl (Zofran Inj) 4 mg Q6H PRN IV NAUSEA AND/OR VOMITING Last administered on 01/05/17 02:20; Admin Dose 4 MG; Start 12/20/16 at 07:30 Acetaminophen (Tylenol Tab) 650 mg Q6H PRN PO PAIN LEVEL 1-3 OR FEVER Last administered on 01/09/17 17:07; Admin Dose 650 MG; Start 12/20/16 at 07:30 Morphine Sulfate (morphine) 4 mg Q4H PRN IV SEVERE PAIN LEVEL 7-10 Last administered on 01/11/17 01:30; Admin Dose 4 MG; Start 12/20/16 at 07:30 Amlodipine Besylate (Norvasc) 5 mg DAILY PO Last administered on 01/10/17 08: 49; Admin Dose 5 MG; Start 12/21/16 at 09:00 Acetaminophen/ Hydrocodone Bitart ([place] (5/325)) 1 tab Q6H PRN PO PAIN LEVEL 7 -10 Last administered on 01/03/17 21:54; Admin Dose 1 TAB; Start 12/30/16 at 18 :00 Hydromorphone HCl (Dilaudid) 1 mg Q4H PRN IV SEVERE PAIN LEVEL 7-10 Last administered on 01/05/17 02:21; Admin Dose 1 MG; Start 01/02/17 at 17:45 Senna (Senokot) 1 tab BID PO Last administered on 01/10/17 08:47; Admin Dose 1 TAB; Start 01/03/17 at 21:00 Polyethylene Glycol 8.5 gm 8.5 gm DAILY PO Last administered on 01/10/17 08:49 ; Admin Dose 8.5 GM; Start 01/03/17 at 15:30 Norepinephrine/ Dextrose (Levophed/D5W) 500 ml @ 1.87 mls/hr TITRATE IV Last administered on 01/05/17 09:13; Admin Dose 28.12 MLS/HR; Start 01/04/17 at 11: 00 Lorazepam (Ativan) 1 mg Q1H PRN IV Seizures Last administered on 01/10/17 18: 18; Admin Dose 1 MG; Start 01/04/17 at 19:30 IV Flush (NS 10 ml) 10 ml PRN PRN IV FLUSH LINE; Start 01/04/17 at 20:00 Morphine Sulfate (morphine) 2 mg Q4H PRN IV pain Last administered on 22:18; Admin Dose 2 MG; Start 01/05/17 at 01:30 Pantoprazole (Protonix Iv) 40 mg DAILY@06 IV Last administered on 01/11/17 05: 01; Admin Dose 40 MG; Start 01/05/17 at 06:30 Lorazepam 1 mg 1 mg Q4H PRN IV agitation Last administered on 01/09/17 11:02; Admin Dose 1 MG; Start 01/05/17 at 07:00 Fentanyl (Sublimaze) 100 ml @ 2.5 mls/hr TITRATE IV Last administered on 15:27; Admin Dose 5 MLS/HR; Start 01/05/17 at 12:25 Hydralazine HCl 10 mg 10 mg Q2H PRN IV SBP >170 Last administered on 01/06/17 03:21; Admin Dose 10 MG; Start 01/06/17 at 03:00 Fluconazole/ Sodium Chloride 50 ml @ 50 mls/hr Q24H IVPB Last administered on 12:23; Admin Dose 50 MLS/HR; Start 01/07/17 at 12:00 Vancomycin HCl 750 mg/Sodium Chloride 150 ml @ 75 mls/hr Q12H IVPB Last administered on 01/10/17 22:46; Admin Dose 75 MLS/HR; Start 01/09/17 at 11:00 Piperacillin Sod/ Tazobactam Sod (Zosyn 3.375gm/ 100 ml (Pmx)) 100 ml @ 200 mls /hr Q6 IVPB Last administered on 01/11/17 05:01; Admin Dose 200 MLS/HR; Start 01/09/17 at 12:00 Docusate Sodium 100 mg 100 mg BID NGT Last administered on 01/10/17 12:45; Admin Dose 100 MG; Start 01/10/17 at 10:00 Potassium Chloride 30 meq/ Dextrose 1,015 ml @ 100 mls/hr Q10H9M IV Last administered on 01/11/17 08:39; Admin Dose 100 MLS/HR; Start 01/11/17 at 07:00 Potassium Phosphate/Sodium Chloride (K Phos (Mm)/NS) 255 ml @ 63.75 mls/ hr ONCE ONCE IVPB Last administered on 01/11/17 08:38; Admin Dose 63.75 MLS/HR; Start 01/11/17 at 07:00; Stop 01/11/17 at 10:59 KAHLIL MARTEL Jan 11, 2017 09:17 KAHLIL MARTEL Jan 11, 2017 09:17
[2017-01-11] MEDS: morphine 2 MG INJ IV PRN (09:35)
[2017-01-11] MEDS: AMLODIPINE 5 MG TAB PO SCH (10:33)
[2017-01-11] MEDS: ACETYLCYSTEINE 600 MG CAP PO SCH ×2 (10:33→20:30)
[2017-01-11] MEDS: VANCOMYCIN 750 MG in SOD CHLORIDE 0.9% 150 ML IVPB SCH ×2 (10:39→23:24)
[2017-01-11] MEDS ORDERED: IOHEXOL 100 ML ONE (11:19)
[2017-01-11] MEDS ORDERED: SOD CHLORIDE 0.9% 100 ML ONE (11:19)
--- NOTE | 2017-01-11 12:31 | RADRPT ---
PROCEDURE: CTA chest with contrast utilizing the pulmonary embolus protocol. CLINICAL INDICATION: Hypertension. Abdominal pain. Respiratory failure. TECHNIQUE: CT angiography of the chest was performed after the uneventful intravenous administration of 100 cc of Omnipaque-350. Coronal and sagittal reformations were performed. 3-D/multiplanar reformations we re performed by the technologist and at an independent workstation. The total exam CTDI equals 35.21 , 18.76 and the total exam DLP equals 592.56 mGy-cm. Evaluation is partially limited due to motion a rtifact. One or more of the following dose reduction techniques were used: - Automated exposure control. - Adjustment of the mA and/or kV according to patient size. - Use of iterative reconstruction technique. COMPARISON: CT of the abdomen and pelvis dated 01/04/2017 and chest x-ray dated 01/10/2017. FINDINGS: Pulmonary vasculature: There are no filling defects through the level of the subsegmental pulmonary arteries. The main pulm onary artery is normal in caliber and there is no evidence of right heart strain. Lungs, pleura, airways, and thoracic inlet: There is a small loculated right effusion and a small left effusion. There is dense consolidation t hroughout the right lower lobe and patchy consolidation at the left lung apex and posterior right up per lobe. There is consolidation within the inferior left lower lobe, likely related to compressive atelectasis. There is a fat containing left Bochdalek hernia. Delete the The tracheobronchial tree is patent and normal in course and caliber. Cardiovascular system, mediastinum, and lymphatics: There is four-chamber cardiac enlargement and a trace pericardial effusion. There is no aortic aneu rysm or dissection. There is no axillary, hilar, or mediastinal adenopathy. There is a left-sided PI CC tip within the upper SVC. Visualized upper abdomen: There are new metallic densities within segment 8 of the liver, likely post embolic change. There i s hypodensity of the liver peripheral to the material, possibly related to hepatic infarct. There i s a moderate amount of fluid within the visualized upper abdomen and heterogeneous hyperdensity hemanth cent to the posterior right hepatic lobe, likely related to blood products, which is incompletely ev aluated on this exam.. Musculoskeletal system: There are no concerning osseous lesions. There is mild multilevel degenerative spondylosis. IMPRESSION: 1. No pulmonary emboli through the level of the subsegmental pulmonary arteries. 2. Four-chamber cardiac enlargement and trace pericardial effusion. 3. Small loculated right effusion and small layering left effusion. Dense consolidation within the dependent right upper lobe and right lower lobe, greater than expected for atelectatic change, and likely representing pneumonia. Parenchymal consolidation within the inferior left lower lobe, likel y related to compressive atelectasis. Underlying infection is not excluded. 4. Post embolic change in segment 8 of the liver with hypodensity peripheral to the embolic material , suggestive of small infarct. 5. Free fluid within the visualized upper abdomen with heterogeneous hyperdensity posterior to the right hepatic lobe, likely related to blood products, which are incompletely evaluated on this exami nation. Dedicated CT of the abdomen and pelvis can be performed for further evaluation. RPTAT: EE .Dewayne Nguyen MD, Date Time Electronically viewed and signed by .Dewayne Nguyen MD, MD on 01/11/2017 12:31 .P/
--- NOTE | 2017-01-11 12:35 | CONS ---
Date/Time of Note Date/Time of Note DATE: 01/11/17 TIME: 12:30 Consult Date/Type/Reason Admit Date/Time Dec 19, 2016 at 21:34 Initial Consult Date 12/20/16 Type of Consultation: Pulm Ordering Provider: KAHLIL MARTEL Subjective Extubated yesterday, now requiring BiPAP. CT chest reviewed. Notable ascites, R > L pleural effusions, basilar ATX and lateral pericardial effusion Objective Vital Signs Date Time Temp Pulse Resp B/P Pulse Ox O2 Delivery O2 Flow Rate FiO2 01/11/17 12:06 133 01/11/17 11:52 99 30 01/11/17 09:00 21 147/76 BIPAP 01/11/17 08:00 98.7 01/11/17 07:33 9.0 Intake and Output 01/10/17 01/10/17 01/11/17 15:00 23:00 07:00 Intake Total 700 ml 800 ml 600 ml Output Total 635 ml 650 ml 350 ml Balance 65 ml 150 ml 250 ml Exam HEENT: Neck supple; no JVD; no LAD CVS: Tachy, S1 and S2, +S3 CHEST: Clear ABD: Soft, NT, + BS, + ascites EXT: No c/c/e Results/Medications Result Diagram: 01/11/17 0400 01/11/17 0400 Results 24 hrs Laboratory Tests Test 01/10/17 14:05 01/11/17 04:00 Potassium Level 3.4 L 3.1 L White Blood Count 9.4 Red Blood Count 3.23 L Hemoglobin 9.7 L Hematocrit 31.9 L Mean Corpuscular Volume 98.8 Mean Corpuscular Hemoglobin 30.0 Mean Corpuscular Hemoglobin Concent 30.4 L Red Cell Distribution Width 19.6 H Platelet Count 285 Mean Platelet Volume 10.5 H Neutrophils % 81.1 H Lymphocytes % 5.9 L Monocytes % 9.5 Eosinophils % 1.5 Basophils % 0.2 Nucleated Red Blood Cells % 0.4 H Neutrophils # 7.6 H Lymphocytes # 0.6 L Monocytes # 0.9 Eosinophils # 0.1 Basophils # 0.0 Nucleated Red Blood Cells # 0.0 Sodium Level 150 H Chloride Level 110 Carbon Dioxide Level 26 Anion Gap 17 #H Blood Urea Nitrogen 12 Creatinine 0.69 Glucose Level 91 Calcium Level 8.7 Phosphorus Level 2.2 L Magnesium Level 1.8 Medications Current Medications Ondansetron HCl (Zofran Inj) 4 mg Q6H PRN IV NAUSEA AND/OR VOMITING Last administered on 01/05/17 02:20; Admin Dose 4 MG; Start 12/20/16 at 07:30 Acetaminophen (Tylenol Tab) 650 mg Q6H PRN PO PAIN LEVEL 1-3 OR FEVER Last administered on 01/09/17 17:07; Admin Dose 650 MG; Start 12/20/16 at 07:30 Morphine Sulfate (morphine) 4 mg Q4H PRN IV SEVERE PAIN LEVEL 7-10 Last administered on 01/11/17 01:30; Admin Dose 4 MG; Start 12/20/16 at 07:30 Amlodipine Besylate (Norvasc) 5 mg DAILY PO Last administered on 01/11/17 10:33 ; Admin Dose 5 MG; Start 12/21/16 at 09:00 Acetaminophen/ Hydrocodone Bitart ([place] (5/325)) 1 tab Q6H PRN PO PAIN LEVEL 7 -10 Last administered on 01/03/17 21:54; Admin Dose 1 TAB; Start 12/30/16 at 18 :00 Hydromorphone HCl (Dilaudid) 1 mg Q4H PRN IV SEVERE PAIN LEVEL 7-10 Last administered on 01/05/17 02:21; Admin Dose 1 MG; Start 01/02/17 at 17:45 Senna 1 tab 1 tab BID PO Last administered on 01/10/17 08:47; Admin Dose 1 TAB ; Start 01/03/17 at 21:00 Norepinephrine/ Dextrose (Levophed/D5W) 500 ml @ 1.87 mls/hr TITRATE IV Last administered on 01/05/17 09:13; Admin Dose 28.12 MLS/HR; Start 01/04/17 at 11: 00 Lorazepam (Ativan) 1 mg Q1H PRN IV Seizures Last administered on 01/10/17 18: 18; Admin Dose 1 MG; Start 01/04/17 at 19:30 IV Flush (NS 10 ml) 10 ml PRN PRN IV FLUSH LINE; Start 01/04/17 at 20:00 Morphine Sulfate (morphine) 2 mg Q4H PRN IV pain Last administered on 01/11/17 09:35; Admin Dose 2 MG; Start 01/05/17 at 01:30 Pantoprazole (Protonix Iv) 40 mg DAILY@06 IV Last administered on 01/11/17 05: 01; Admin Dose 40 MG; Start 01/05/17 at 06:30 Lorazepam 1 mg 1 mg Q4H PRN IV agitation Last administered on 01/09/17 11:02; Admin Dose 1 MG; Start 01/05/17 at 07:00 Fentanyl (Sublimaze) 100 ml @ 2.5 mls/hr TITRATE IV Last administered on 15:27; Admin Dose 5 MLS/HR; Start 01/05/17 at 12:25 Hydralazine HCl 10 mg 10 mg Q2H PRN IV SBP >170 Last administered on 01/06/17 03:21; Admin Dose 10 MG; Start 01/06/17 at 03:00 Fluconazole/ Sodium Chloride 50 ml @ 50 mls/hr Q24H IVPB Last administered on 12:23; Admin Dose 50 MLS/HR; Start 01/07/17 at 12:00 Vancomycin HCl 750 mg/Sodium Chloride 150 ml @ 75 mls/hr Q12H IVPB Last administered on 01/11/17 10:39; Admin Dose 75 MLS/HR; Start 01/09/17 at 11:00 Piperacillin Sod/ Tazobactam Sod (Zosyn 3.375gm/ 100 ml (Pmx)) 100 ml @ 200 mls /hr Q6 IVPB Last administered on 01/11/17 12:18; Admin Dose 200 MLS/HR; Start 01/09/17 at 12:00 Docusate Sodium 100 mg 100 mg BID NGT Last administered on 01/11/17 10:33; Admin Dose 100 MG; Start 01/10/17 at 10:00 Potassium Chloride/Dextrose (KCl/D5W) 1,015 ml @ 100 mls/hr Q10H9M IV Last administered on 01/11/17 08:39; Admin Dose 100 MLS/HR; Start 01/11/17 at 07:00 Acetylcysteine (Nac) 600 mg BID PO Last administered on 01/11/17 10:33; Admin Dose 600 MG; Start 01/11/17 at 09:30; Stop 01/13/17 at 09:29 Assessment/Plan Additional Assessment/Plan IMP: 1. s/p Septic Shock 2. Respiratory Failure 3. Encephalopathy 4. s/p GRICELDA 5. Hepatic masses 6. Volume overload RECS: 1. Continue BiPAP 2. Diuresis (Admit weight 79 Kg; Weight now 91 kg) 3, Am labs 4. Free H20 35 min cc time ANKUSH GARRIDO MD Jan 11, 2017 12:35
[2017-01-11] MEDS: FLUCONAZOLE 100 MG/NS (PMX) 50 ML IVPB SCH (13:30)
[2017-01-11] MEDS: FUROSEMIDE 20 MG INJ IV SCH ×2 (13:37→20:46)
[2017-01-11 15:04] LABS: CALCIUM 8.5 mg/dl (8.4-10.2); CREATININE 0.71 mg/dl (0.44-1.00); POTASSIUM 3.1 mmol/L (3.5-5.1)
[2017-01-11] MEDS: ACETAMINOPHEN 325 MG TAB PO PRN (19:27)
[2017-01-11] MEDS: LORAZEPAM 2 MG INJ IV PRN (20:46)
--- NOTE | 2017-01-11 21:49 | CONS ---
Date/Time of Note Date/Time of Note DATE: 01/11/17 TIME: 21:47 Assessment/Plan Assessment/Plan Chief Complaint/Hosp Course Assessment 1. Acute respiratory failure managed by pulmonary 2. Anemia acute CT scan Intraabdominal hemorrhage Very large mixed density acute subcapsular hematoma of the liver with moderate blood seen throughout the abdomen and pelvis. Right lower lobe atelectasis or infiltrate and small bilateral effusions. Horseshoe kidneys 3. Transaminitis 4. 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 COMMENT: This case has been reviewed by Dr. Carlos Garcia of [facility] who essentially concurs with our interpretation and he states that the histopathological features are suggestive of but not characteristic for inflammatory (myofibroblastic) pseudotumor, and due to difficulty in assessing IgG4/IgG ratio due to diffuse background staining a diagnosis of sclerosing cholangitis, which can be seen in IgG4-associated liver disease cannot be made at this time. Please see attached consultation report. 5. Portal vein thrombosis Reommendation: 1. monitor hemoglobin and hematocrit and transfuse 1 unit PRBC if HGB <7.5 ,2 units PRBC hemoglobin less than 7 2. liver biopsy is unrevealing. I would recommend Heme/Onc consult to determine next steps in w/u of his liver lesions if necessary. 3. trend liver enzymes ,elevation of ast,alt could be attributed to subcapsular hematoma 4. continue NG feeding Problems: Consultation Date/Type/Reason Admit Date/Time Dec 19, 2016 at 21:34 Initial Consult Date 12/26/16 Type of Consultation: GI Referring Provider: KAHLIL MARTEL 24 HR Interval Summary Free Text/Dictation on BIPAP, air hunger when off bipap, no abdominal pain, no n/v Exam/Review of Systems Vital Signs Vitals Vital Signs Date Time Temp Pulse Resp B/P Pulse Ox O2 Delivery O2 Flow Rate FiO2 01/11/17 21:09 91 98 30 01/11/17 18:00 19 125/75 BIPAP 01/11/17 16:00 99.9 01/11/17 07:33 9.0 Intake and Output 01/10/17 01/10/17 01/11/17 15:00 23:00 07:00 Intake Total 700 ml 800 ml 600 ml Output Total 635 ml 650 ml 350 ml Balance 65 ml 150 ml 250 ml Exam Constitutional: alert Psych: nl mood/affect, no complaints Head: atraumatic, normocephalic Eyes: EOMI, nl conjunctiva, nl lids, nl sclera ENMT: mucosa pink and moist, nl external ears & nose, nl lips & teeth, nl nasal mucosa & septum Neck: non-tender, supple Respiratory: clear to auscultation, normal air movement Cardiovascular: nl pulses, regular rate and rhythm Gastrointestinal: bowel sounds, non-tender, soft Results Result Diagram: 01/11/17 0400 01/11/17 1428 Results 24 hrs Laboratory Tests Test 01/11/17 04:00 01/11/17 14:28 White Blood Count 9.4 Red Blood Count 3.23 L Hemoglobin 9.7 L Hematocrit 31.9 L Mean Corpuscular Volume 98.8 Mean Corpuscular Hemoglobin 30.0 Mean Corpuscular Hemoglobin Concent 30.4 L Red Cell Distribution Width 19.6 H Platelet Count 285 Mean Platelet Volume 10.5 H Neutrophils % 81.1 H Lymphocytes % 5.9 L Monocytes % 9.5 Eosinophils % 1.5 Basophils % 0.2 Nucleated Red Blood Cells % 0.4 H Neutrophils # 7.6 H Lymphocytes # 0.6 L Monocytes # 0.9 Eosinophils # 0.1 Basophils # 0.0 Nucleated Red Blood Cells # 0.0 Sodium Level 150 H 148 H Potassium Level 3.1 L 3.1 L Chloride Level 110 110 Carbon Dioxide Level 26 29 Anion Gap 17 #H 12 Blood Urea Nitrogen 12 11 Creatinine 0.69 0.71 Glucose Level 91 107 Calcium Level 8.7 8.5 Phosphorus Level 2.2 L Magnesium Level 1.8 Medications Medications Current Medications Ondansetron HCl (Zofran Inj) 4 mg Q6H PRN IV NAUSEA AND/OR VOMITING Last administered on 01/05/17 02:20; Admin Dose 4 MG; Start 12/20/16 at 07:30 Acetaminophen (Tylenol Tab) 650 mg Q6H PRN PO PAIN LEVEL 1-3 OR FEVER Last administered on 01/11/17 19:27; Admin Dose 650 MG; Start 12/20/16 at 07:30 Morphine Sulfate (morphine) 4 mg Q4H PRN IV SEVERE PAIN LEVEL 7-10 Last administered on 01/11/17 20:31; Admin Dose 4 MG; Start 12/20/16 at 07:30 Amlodipine Besylate (Norvasc) 5 mg DAILY PO Last administered on 01/11/17 10:33 ; Admin Dose 5 MG; Start 12/21/16 at 09:00 Acetaminophen/ Hydrocodone Bitart ([place] (5/325)) 1 tab Q6H PRN PO PAIN LEVEL 7 -10 Last administered on 01/03/17 21:54; Admin Dose 1 TAB; Start 12/30/16 at 18 :00 Hydromorphone HCl (Dilaudid) 1 mg Q4H PRN IV SEVERE PAIN LEVEL 7-10 Last administered on 01/05/17 02:21; Admin Dose 1 MG; Start 01/02/17 at 17:45 Senna 1 tab 1 tab BID PO Last administered on 01/11/17 20:30; Admin Dose 1 TAB ; Start 01/03/17 at 21:00 Norepinephrine/ Dextrose (Levophed/D5W) 500 ml @ 1.87 mls/hr TITRATE IV Last administered on 01/05/17 09:13; Admin Dose 28.12 MLS/HR; Start 01/04/17 at 11: 00 Lorazepam (Ativan) 1 mg Q1H PRN IV Seizures Last administered on 01/11/17 20:46 ; Admin Dose 1 MG; Start 01/04/17 at 19:30 IV Flush (NS 10 ml) 10 ml PRN PRN IV FLUSH LINE; Start 01/04/17 at 20:00 Morphine Sulfate (morphine) 2 mg Q4H PRN IV pain Last administered on 01/11/17 09:35; Admin Dose 2 MG; Start 01/05/17 at 01:30 Pantoprazole (Protonix Iv) 40 mg DAILY@06 IV Last administered on 01/11/17 05: 01; Admin Dose 40 MG; Start 01/05/17 at 06:30 Lorazepam 1 mg 1 mg Q4H PRN IV agitation Last administered on 01/09/17 11:02; Admin Dose 1 MG; Start 01/05/17 at 07:00 Fentanyl (Sublimaze) 100 ml @ 2.5 mls/hr TITRATE IV Last administered on 15:27; Admin Dose 5 MLS/HR; Start 01/05/17 at 12:25 Hydralazine HCl 10 mg 10 mg Q2H PRN IV SBP >170 Last administered on 01/06/17 03:21; Admin Dose 10 MG; Start 01/06/17 at 03:00 Fluconazole/ Sodium Chloride 50 ml @ 50 mls/hr Q24H IVPB Last administered on 13:30; Admin Dose 50 MLS/HR; Start 01/07/17 at 12:00 Vancomycin HCl 750 mg/Sodium Chloride 150 ml @ 75 mls/hr Q12H IVPB Last administered on 01/11/17 10:39; Admin Dose 75 MLS/HR; Start 01/09/17 at 11:00 Piperacillin Sod/ Tazobactam Sod (Zosyn 3.375gm/ 100 ml (Pmx)) 100 ml @ 200 mls /hr Q6 IVPB Last administered on 01/11/17 18:28; Admin Dose 200 MLS/HR; Start 01/09/17 at 12:00 Docusate Sodium 100 mg 100 mg BID NGT Last administered on 01/11/17 20:30; Admin Dose 100 MG; Start 01/10/17 at 10:00 Potassium Chloride/Dextrose (KCl/D5W) 1,015 ml @ 70 mls/hr [id number] IV Last administered on 01/11/17 08:39; Admin Dose 100 MLS/HR; Start 01/11/17 at 07:00 Acetylcysteine (Nac) 600 mg BID PO Last administered on 01/11/17 20:30; Admin Dose 600 MG; Start 01/11/17 at 09:30; Stop 01/13/17 at 09:29 Furosemide (Lasix) 20 mg Q8 IV Last administered on 01/11/17 20:46; Admin Dose 20 MG; Start 01/11/17 at 14:00 JANKI RAUSCH MD Jan 11, 2017 21:49
[2017-01-12] VITALS (66 sets, daily range): BP systolic 96–185; BP diastolic 57–101; PULSE 86–139; RESP 18–34
[2017-01-12] MEDS: PIPER-TAZO 3.375 GM IV (PMX) 100 ML IVPB SCH ×4 (00:29→16:54)
[2017-01-12] MEDS: ALBUTEROL 0.083% (NEB) 2.5 MG/3 ML AMP HHN SCH ×4 (01:43→13:20)
[2017-01-12] MEDS: morphine 4 MG/ML VIAL IV PRN ×2 (03:23→11:23)
[2017-01-12 05:05] LABS: CALCIUM 8.6 mg/dl (8.4-10.2); CREATININE 0.73 mg/dl (0.44-1.00); MAGNESIUM 1.9 mg/dl (1.7-2.5); PHOSPHORUS 2.3 mg/dl (2.5-4.9)
[2017-01-12 05:09] LABS: POTASSIUM 2.9 mmol/L (3.5-5.1)
[2017-01-12 05:18] LABS: ABNORMAL IP MESSAGE 1; BASOPHILS % 0.3 % (0.0-2.0); EOSINOPHILS # 0.2 10^3/ul (0.0-0.5); EOSINOPHILS % 1.9 % (0.0-7.0); HEMATOCRIT 31.1 % (37.0-47.0); HEMOGLOBIN 9.6 g/dl (12.0-16.0); LYMPHOCYTES # 0.6 10^3/ul (0.8-2.9); LYMPHOCYTES % 5.5 % (15.0-51.0); MEAN CORPUSCULAR HEMOGLOBIN 30.9 pg (29.0-33.0); MEAN CORPUSCULAR HGB CONC 30.9 g/dl (32.0-37.0); MEAN PLATELET VOLUME 10.7 fl (7.4-10.4); MONOCYTES % 9.6 % (0.0-11.0); NEUTROPHIL # 8.6 10^3/ul (1.6-7.5); NEUTROPHILS % 81.2 % (39.0-77.0); PLATELET COUNT 298 10^3/UL (140-415); RED BLOOD COUNT 3.11 10^6/ul (4.20-5.40); RED CELL DISTRIBUTION WIDTH 20.1 % (11.5-14.5); WHITE BLOOD COUNT 10.6 10^3/ul (4.8-10.8)
[2017-01-12] MEDS: PANTOPRAZOLE 40 MG INJ IV SCH (05:25)
[2017-01-12] MEDS: FUROSEMIDE 20 MG INJ IV SCH ×3 (05:25→21:54)
[2017-01-12] MEDS: POTASSIUM CHLORIDE 30 MEQ in DEXTROSE 5% 1,000 ML IV SCH ×2 (05:25→20:53)
[2017-01-12] MEDS: POTASSIUM CHLORIDE 250 ML IVPB SCH ×2 (06:21→10:21)
[2017-01-12 07:07] LABS: ADD SCAN DIFF NO
--- NOTE | 2017-01-12 07:22 | PN ---
Date/Time of Note Date/Time of Note DATE: 01/12/17 TIME: 07:18 Assessment/Plan Lines/Catheters IV Catheter Type (from [facility]): Central Line Urinary Cath still in place: Yes Assessment/Plan Chief Complaint/Hosp Course 1. Nonoliguric acute kidney injury with previously normal baseline creatinine. Etiology secondary to acute tubular necrosis due to severe anemia, ischemic hypoperfusion, shock. - Patient's renal function is improving. -Monitor closely for contrast associated nephropathy - continue current treatment plan, supportive care, renally dose all medications. 2. Anemia secondary to intra-abdominal bleed. The patient had a liver hematoma , capsular. The patient is status post multiple blood products. -monitor h/h, transfuse as needed 3. Volume overload. Improving We will continue to give intermittent diuretic therapy as needed. 4. Hypernatremia. -Improving Continue- D5W -Monitor serial sodium levels 3. Mineral bone disease. Will continue to monitor calcium, phosphorus levels. Replace phosphorus 4. hypokalemia/hypomagnesemia. Monitor and replace as needed 5. Sepsis. status post shock, currently off pressor support. Continue current antibiotic regimen. 6. Hypoxemic respiratory failure. Patient CPAP. Continue to monitor. Follow- up with pulmonary. CT angiogram showed no evidence of PE 7. Portal vein thrombosis. 8. Multiple liver lesions status post biopsy. Findings consistent with possible lymphoplasmacytic involvement will continue to monitor. Follow up with hematology. 9. Uterine mass. Followup with Gynecology/Oncology. Status post code arrest. Please note I spent over 45 minutes of critical care time with this patient. Problems: Subjective 24 Hr Interval Summary Free Text/Dictation Patient is critical. Remains on BiPAP. Patient had a CT angiogram evidence of PE. Patient was placed on diuretic therapy. Good urinary output. No other events noted. Exam/Review of Systems Vital Signs Vitals Vital Signs Date Time Temp Pulse Resp B/P Pulse Ox O2 Delivery O2 Flow Rate FiO2 01/12/17 06:00 107 26 150/94 97 01/12/17 05:19 30 01/12/17 04:00 98.9 01/11/17 23:45 5.0 01/11/17 18:00 BIPAP Intake and Output 01/11/17 01/11/17 01/12/17 15:00 23:00 07:00 Intake Total 900 ml 550 ml 720 ml Output Total 1750 ml 1700 ml 1500 ml Balance -850 ml -1150 ml -780 ml Exam HEENT: Head is normocephalic. Pupils are reactive to light. NECK: Supple. HEART: Regular rate. LUNGS: Show diminished breath sounds at base. ABDOMEN: Soft, nontender to palpation. No rebound or guarding. EXTREMITIES: Negative for clubbing, cyanosis, no edema. DERMATOLOGIC: No rashes. MUSCULOSKELETAL: No joint effusions. NEUROLOGIC: No change in exam. Results Result Diagram: 01/12/17 0500 01/12/17 0430 Results 24 hrs Laboratory Tests Test 01/11/17 14:28 01/12/17 04:30 01/12/17 05:00 Sodium Level 148 H 147 H Potassium Level 3.1 L 2.9 *L Chloride Level 110 108 Carbon Dioxide Level 29 31 Anion Gap 12 11 Blood Urea Nitrogen 11 11 Creatinine 0.71 0.73 Glucose Level 107 100 Calcium Level 8.5 8.6 Phosphorus Level 2.3 L Magnesium Level 1.9 White Blood Count 10.6 Red Blood Count 3.11 L Hemoglobin 9.6 L Hematocrit 31.1 L Mean Corpuscular Volume 100.0 Mean Corpuscular Hemoglobin 30.9 Mean Corpuscular Hemoglobin Concent 30.9 L Red Cell Distribution Width 20.1 H Platelet Count 298 Mean Platelet Volume 10.7 H Neutrophils % 81.2 H Lymphocytes % 5.5 L Monocytes % 9.6 Eosinophils % 1.9 Basophils % 0.3 Nucleated Red Blood Cells % 0.0 Neutrophils # 8.6 H Lymphocytes # 0.6 L Monocytes # 1.0 H Eosinophils # 0.2 Basophils # 0.0 Nucleated Red Blood Cells # 0.0 Medications Medications Current Medications Ondansetron HCl (Zofran Inj) 4 mg Q6H PRN IV NAUSEA AND/OR VOMITING Last administered on 01/05/17 02:20; Admin Dose 4 MG; Start 12/20/16 at 07:30 Acetaminophen (Tylenol Tab) 650 mg Q6H PRN PO PAIN LEVEL 1-3 OR FEVER Last administered on 01/11/17 19:27; Admin Dose 650 MG; Start 12/20/16 at 07:30 Morphine Sulfate (morphine) 4 mg Q4H PRN IV SEVERE PAIN LEVEL 7-10 Last administered on 01/12/17 03:23; Admin Dose 4 MG; Start 12/20/16 at 07:30 Amlodipine Besylate (Norvasc) 5 mg DAILY PO Last administered on 01/11/17 10:33 ; Admin Dose 5 MG; Start 12/21/16 at 09:00 Acetaminophen/ Hydrocodone Bitart ([place] (5/325)) 1 tab Q6H PRN PO PAIN LEVEL 7 -10 Last administered on 01/03/17 21:54; Admin Dose 1 TAB; Start 12/30/16 at 18 :00 Hydromorphone HCl (Dilaudid) 1 mg Q4H PRN IV SEVERE PAIN LEVEL 7-10 Last administered on 01/05/17 02:21; Admin Dose 1 MG; Start 01/02/17 at 17:45 Senna 1 tab 1 tab BID PO Last administered on 01/11/17 20:30; Admin Dose 1 TAB ; Start 01/03/17 at 21:00 Norepinephrine/ Dextrose (Levophed/D5W) 500 ml @ 1.87 mls/hr TITRATE IV Last administered on 01/05/17 09:13; Admin Dose 28.12 MLS/HR; Start 01/04/17 at 11: 00 Lorazepam (Ativan) 1 mg Q1H PRN IV Seizures Last administered on 01/11/17 20:46 ; Admin Dose 1 MG; Start 01/04/17 at 19:30 IV Flush (NS 10 ml) 10 ml PRN PRN IV FLUSH LINE; Start 01/04/17 at 20:00 Morphine Sulfate (morphine) 2 mg Q4H PRN IV pain Last administered on 01/11/17 09:35; Admin Dose 2 MG; Start 01/05/17 at 01:30 Pantoprazole (Protonix Iv) 40 mg DAILY@06 IV Last administered on 01/12/17 05: 25; Admin Dose 40 MG; Start 01/05/17 at 06:30 Lorazepam 1 mg 1 mg Q4H PRN IV agitation Last administered on 01/09/17 11:02; Admin Dose 1 MG; Start 01/05/17 at 07:00 Fentanyl (Sublimaze) 100 ml @ 2.5 mls/hr TITRATE IV Last administered on 15:27; Admin Dose 5 MLS/HR; Start 01/05/17 at 12:25 Hydralazine HCl 10 mg 10 mg Q2H PRN IV SBP >170 Last administered on 01/06/17 03:21; Admin Dose 10 MG; Start 01/06/17 at 03:00 Fluconazole/ Sodium Chloride 50 ml @ 50 mls/hr Q24H IVPB Last administered on 13:30; Admin Dose 50 MLS/HR; Start 01/07/17 at 12:00 Vancomycin HCl 750 mg/Sodium Chloride 150 ml @ 75 mls/hr Q12H IVPB Last administered on 01/11/17 23:24; Admin Dose 75 MLS/HR; Start 01/09/17 at 11:00 Piperacillin Sod/ Tazobactam Sod (Zosyn 3.375gm/ 100 ml (Pmx)) 100 ml @ 200 mls /hr Q6 IVPB Last administered on 01/12/17 05:25; Admin Dose 200 MLS/HR; Start 01/09/17 at 12:00 Docusate Sodium 100 mg 100 mg BID NGT Last administered on 01/11/17 20:30; Admin Dose 100 MG; Start 01/10/17 at 10:00 Potassium Chloride/Dextrose (KCl/D5W) 1,015 ml @ 70 mls/hr [id number] IV Last administered on 01/12/17 05:25; Admin Dose 70 MLS/HR; Start 01/11/17 at 07:00 Acetylcysteine (Nac) 600 mg BID PO Last administered on 01/11/17 20:30; Admin Dose 600 MG; Start 01/11/17 at 09:30; Stop 01/13/17 at 09:29 Furosemide 20 mg 20 mg Q8 IV Last administered on 01/12/17 05:25; Admin Dose 20 MG; Start 01/11/17 at 14:00 Potassium Chloride (KCl 40 MEQ/250 ML NS) 250 ml @ 62.5 mls/hr Q4H IVPB Last administered on 01/12/17 06:21; Admin Dose 62.5 MLS/HR; Start 01/12/17 at 05:30; Stop 01/12/17 at 13:29 MILLY DAIGLE DO Jan 12, 2017 07:21
[2017-01-12] MEDS ORDERED: POTASSIUM PHOSPHATE 20 MEQ in SOD CHLORIDE 0.9% 250 ML IVPB ONE (07:30)
--- NOTE | 2017-01-12 08:57 | PN ---
Date/Time of Note Date/Time of Note DATE: 01/12/17 TIME: 08:50 Assessment/Plan VTE Prophylaxis VTE Prophylaxis Intervention: SCD's VTE Contraindication Reason: bleeding Lines/Catheters IV Catheter Type (from Nrsg): Central Line Central line still needed: Yes Urinary Cath still in place: Yes Reason Cath still needed: other (indicate) Assessment/Plan Assessment/Plan 51-year-old female who had initially presented with abdominal pain and was found to have extensive portal vein and right hepatic vein thrombosis. Initial imaging was concerning for multiple liver lesions, pulmonary nodules, as well as a uterine mass. She was started on anticoagulation for her thrombosis, while she underwent further workup for her right-sided liver masses and pulmonary nodules to rule out a metastatic process. She needed an MRI with gadolinium contrast, however she developed acute renal insufficiency from contrast versus vancomycin, and we had to wait for renal function to normalize before she could get the MRI. She got the MRI and subsequently underwent a liver biopsy. Pathology shows no malignancy but concern for inflamatory pseudotumor like sclerosing cholangitis However in the interim, patient decompensated; initially complaining of her right upper quadrant pain after the biopsy , was found to have a capsular hematoma thought to be from the location of biopsy with moderate blood seen throughout the abdomen and pelvis. She was also found to have severe coagulopathy concerning for DIC, she developed severe shock with multiorgan failure and was intubated and sent to ICU. She is being managed now as follows : 1. Severe systemic shock likely hypovolemic from acute intra-abdominal hemorrhage / subcapsular hepatic hematoma causing severe coagulopathy: resolved 2. Persistent resp failure 2/2 #11: extubated now but dependent on bipap 3. Acute encephalopathy secondary to #1: resolved 4. Recurrence of acute kidney injury secondary to #1: improving 5. 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 Hypertension: better control 7. Diffuse venous thrombosis to include hepatic, portal, and right upper extremity veins 8. Status post alpha hemolytic strep bacteremia 9. Solitary seizure episode likely secondary to #1 10. Acute transaminitis and coagulopathy secondary to subcapsular hematoma s/ p status post hepatic artery ligation versus embolization via IR : Improving 11. Maurice Pneumonia R >>L. * Had lung nodules on admission likely 2/2 pneumonia, no longer present on CT 12. Debility 13. Mild hepatic infarct on CT likely related to #10 14. Persistent hypokalemia and hypophosphatemia Plan: * Resp status is still dicey, remain in ICU /continue gentle diuresis * NG tube feedings have been on hold secondary to BiPAP * Patient remains on D5 water with potassium chloride, but is also on Lasix for diuresis * Monitor and replace electrolytes * Continue to closely monitor hemoglobin levels and liver function * Patient remains off anticoagulation d/t bleeding * Patient continues on abx per ID * Will d/c Keppra as seizure was provoked, with no further seizures * Regarding uterine lesion, patient may benefit from total hysterectomy and possible salpingo-oophorectomy with mass excision and biopsy if able to stabilize her. Prophylaxis: SCDs/IV PPI Prognosis: Guarded CC time >30mins Subjective 24 Hr Interval Summary Free Text/Dictation Remains dependent on BiPAP. No acute overnight events. No pressor support. Exam/Review of Systems Vital Signs Vitals Vital Signs Date Time Temp Pulse Resp B/P Pulse Ox O2 Delivery O2 Flow Rate FiO2 01/12/17 06:00 107 26 150/94 97 01/12/17 05:19 30 01/12/17 04:00 98.9 01/11/17 23:45 5.0 01/11/17 18:00 BIPAP Intake and Output 01/11/17 01/11/17 01/12/17 15:00 23:00 07:00 Intake Total 900 ml 550 ml 720 ml Output Total 1750 ml 1700 ml 1500 ml Balance -850 ml -1150 ml -780 ml Exam Constitutional: alert, BiPAP Psych: anxiety Head: normocephalic Eyes: PERRL ENMT: other, No mucosa pink and moist Respiratory: diminished breath sounds, normal obesity Cardiovascular: No regular rate and rhythm (mild tachy) Gastrointestinal: distended, soft, No tender Extremities: edema Neurological: Looks less lethargic Results Result Diagram: 01/12/17 0500 01/12/17 0430 Results 24 hrs Laboratory Tests Test 01/11/17 14:28 01/12/17 04:30 01/12/17 05:00 Sodium Level 148 H 147 H Potassium Level 3.1 L 2.9 *L Chloride Level 110 108 Carbon Dioxide Level 29 31 Anion Gap 12 11 Blood Urea Nitrogen 11 11 Creatinine 0.71 0.73 Glucose Level 107 100 Calcium Level 8.5 8.6 Phosphorus Level 2.3 L Magnesium Level 1.9 White Blood Count 10.6 Red Blood Count 3.11 L Hemoglobin 9.6 L Hematocrit 31.1 L Mean Corpuscular Volume 100.0 Mean Corpuscular Hemoglobin 30.9 Mean Corpuscular Hemoglobin Concent 30.9 L Red Cell Distribution Width 20.1 H Platelet Count 298 Mean Platelet Volume 10.7 H Neutrophils % 81.2 H Lymphocytes % 5.5 L Monocytes % 9.6 Eosinophils % 1.9 Basophils % 0.3 Nucleated Red Blood Cells % 0.0 Neutrophils # 8.6 H Lymphocytes # 0.6 L Monocytes # 1.0 H Eosinophils # 0.2 Basophils # 0.0 Nucleated Red Blood Cells # 0.0 Medications Medications Current Medications Ondansetron HCl (Zofran Inj) 4 mg Q6H PRN IV NAUSEA AND/OR VOMITING Last administered on 01/05/17 02:20; Admin Dose 4 MG; Start 12/20/16 at 07:30 Acetaminophen (Tylenol Tab) 650 mg Q6H PRN PO PAIN LEVEL 1-3 OR FEVER Last administered on 01/11/17 19:27; Admin Dose 650 MG; Start 12/20/16 at 07:30 Morphine Sulfate (morphine) 4 mg Q4H PRN IV SEVERE PAIN LEVEL 7-10 Last administered on 01/12/17 03:23; Admin Dose 4 MG; Start 12/20/16 at 07:30 Amlodipine Besylate (Norvasc) 5 mg DAILY PO Last administered on 01/11/17 10:33 ; Admin Dose 5 MG; Start 12/21/16 at 09:00 Acetaminophen/ Hydrocodone Bitart ([place] (5/325)) 1 tab Q6H PRN PO PAIN LEVEL 7 -10 Last administered on 01/03/17 21:54; Admin Dose 1 TAB; Start 12/30/16 at 18 :00 Hydromorphone HCl (Dilaudid) 1 mg Q4H PRN IV SEVERE PAIN LEVEL 7-10 Last administered on 01/05/17 02:21; Admin Dose 1 MG; Start 01/02/17 at 17:45 Senna 1 tab 1 tab BID PO Last administered on 01/11/17 20:30; Admin Dose 1 TAB ; Start 01/03/17 at 21:00 Norepinephrine/ Dextrose (Levophed/D5W) 500 ml @ 1.87 mls/hr TITRATE IV Last administered on 01/05/17 09:13; Admin Dose 28.12 MLS/HR; Start 01/04/17 at 11: 00 Lorazepam (Ativan) 1 mg Q1H PRN IV Seizures Last administered on 01/11/17 20:46 ; Admin Dose 1 MG; Start 01/04/17 at 19:30 IV Flush (NS 10 ml) 10 ml PRN PRN IV FLUSH LINE; Start 01/04/17 at 20:00 Morphine Sulfate (morphine) 2 mg Q4H PRN IV pain Last administered on 01/11/17 09:35; Admin Dose 2 MG; Start 01/05/17 at 01:30 Pantoprazole (Protonix Iv) 40 mg DAILY@06 IV Last administered on 01/12/17 05: 25; Admin Dose 40 MG; Start 01/05/17 at 06:30 Lorazepam 1 mg 1 mg Q4H PRN IV agitation Last administered on 01/09/17 11:02; Admin Dose 1 MG; Start 01/05/17 at 07:00 Fentanyl (Sublimaze) 100 ml @ 2.5 mls/hr TITRATE IV Last administered on 15:27; Admin Dose 5 MLS/HR; Start 01/05/17 at 12:25 Hydralazine HCl 10 mg 10 mg Q2H PRN IV SBP >170 Last administered on 01/06/17 03:21; Admin Dose 10 MG; Start 01/06/17 at 03:00 Fluconazole/ Sodium Chloride 50 ml @ 50 mls/hr Q24H IVPB Last administered on 13:30; Admin Dose 50 MLS/HR; Start 01/07/17 at 12:00 Vancomycin HCl 750 mg/Sodium Chloride 150 ml @ 75 mls/hr Q12H IVPB Last administered on 01/11/17 23:24; Admin Dose 75 MLS/HR; Start 01/09/17 at 11:00 Piperacillin Sod/ Tazobactam Sod (Zosyn 3.375gm/ 100 ml (Pmx)) 100 ml @ 200 mls /hr Q6 IVPB Last administered on 01/12/17 05:25; Admin Dose 200 MLS/HR; Start 01/09/17 at 12:00 Docusate Sodium 100 mg 100 mg BID NGT Last administered on 01/11/17 20:30; Admin Dose 100 MG; Start 01/10/17 at 10:00 Potassium Chloride/Dextrose (KCl/D5W) 1,015 ml @ 70 mls/hr [id number] IV Last administered on 01/12/17 05:25; Admin Dose 70 MLS/HR; Start 01/11/17 at 07:00 Acetylcysteine (Nac) 600 mg BID PO Last administered on 01/11/17 20:30; Admin Dose 600 MG; Start 01/11/17 at 09:30; Stop 01/13/17 at 09:29 Furosemide 20 mg 20 mg Q8 IV Last administered on 01/12/17 05:25; Admin Dose 20 MG; Start 01/11/17 at 14:00 Potassium Chloride 250 ml @ 62.5 mls/hr Q4H IVPB Last administered on 06:21; Admin Dose 62.5 MLS/HR; Start 01/12/17 at 05:30; Stop 01/12/17 at 13: 29 Potassium Phosphate/Sodium Chloride (K Phos (Meq)/NS) 254.5455 ml @ 63.636 m... ONCE ONCE IVPB ; Start 01/12/17 at 07:30; Stop 01/12/17 at 11:29 Procedures Procedures CTA yesterday showed no pulmonary embolism but the patient has a loculated right effusion that was described as small but dense consolidation in the right side suggestive of pneumonia. There was also concern for small hepatic infarct which was expected after hepatic artery embolization for severe bleeding. There was still some residual free fluid in the right hepatic lobe noted Patient continues to also have persistent hypokalemia KAHLIL MARTEL Jan 12, 2017 08:57
[2017-01-12] MEDS: AMLODIPINE 5 MG TAB PO SCH (08:58)
[2017-01-12] MEDS: ACETYLCYSTEINE 600 MG CAP PO SCH ×2 (08:58→20:53)
[2017-01-12] MEDS: DOCUSATE SODIUM 10 MG/ML (10ML CUP) NGT SCH ×2 (08:58→20:53)
[2017-01-12] MEDS: SENNA TAB PO SCH ×2 (08:58→20:53)
[2017-01-12] MEDS: hydrALAzine 20 MG INJ IV PRN ×2 (09:07→22:01)
[2017-01-12] MEDS: morphine 2 MG INJ IV PRN (09:08)
--- NOTE | 2017-01-12 09:28 | RADRPT ---
PROCEDURE: XR Chest. CLINICAL INDICATION: Respiratory distress. TECHNIQUE: AP view of the chest was performed. COMPARISON: January 11, 2017 CTA chest, January 10, 2017 FINDINGS: The left PICC line remains in good positioning. There is stable mild cardiomegaly, decreased lung v olumes and lower lobe airspace consolidation. No pneumothorax. The heart size is stable. The osse ous structures are intact. IMPRESSION: Left PICC line in good positioning. Stable mild cardiomegaly, decreased lung volumes, and lower lob e airspace consolidation. Overall, no interval change. RPTAT: QQ. .Luisa Torres MD, MD Date Time Electronically viewed and signed by .Luisa Torres MD, MD on 01/12/2017 09:27 .F/
--- NOTE | 2017-01-12 09:34 | CONS ---
Date/Time of Note Date/Time of Note DATE: 01/12/17 TIME: 09:32 Assessment/Plan Assessment/Plan Chief Complaint/Hosp Course Assessment 1. Acute respiratory failure managed by pulmonary 2. Anemia acute CT scan Intraabdominal hemorrhage Very large mixed density acute subcapsular hematoma of the liver with moderate blood seen throughout the abdomen and pelvis. Right lower lobe atelectasis or infiltrate and small bilateral effusions. Horseshoe kidneys 3. Transaminitis 4. 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 COMMENT: This case has been reviewed by Dr. Carlos Garcia of [facility] who essentially concurs with our interpretation and he states that the histopathological features are suggestive of but not characteristic for inflammatory (myofibroblastic) pseudotumor, and due to difficulty in assessing IgG4/IgG ratio due to diffuse background staining a diagnosis of sclerosing cholangitis, which can be seen in IgG4-associated liver disease cannot be made at this time. Please see attached consultation report. 5. Portal vein thrombosis Reommendation: 1. monitor hemoglobin and hematocrit and transfuse 1 unit PRBC if HGB <7.5 ,2 units PRBC hemoglobin less than 7 2. liver biopsy is unrevealing. I would recommend Heme/Onc consult to determine next steps in w/u of his liver lesions if necessary. 3. trend liver enzymes, elevation of ast,alt could be attributed to subcapsular hematoma 4. continue NG feeding if possible 5. continue supportive care including abx Problems: Consultation Date/Type/Reason Admit Date/Time Dec 19, 2016 at 21:34 Initial Consult Date 12/26/16 Type of Consultation: GI Referring Provider: KAHLIL MARTEL 24 HR Interval Summary Free Text/Dictation awake, sob, air hunger when off BIPAP, reduced abdominal pain. Translation provided by pt son Constitutional: improved Exam/Review of Systems Vital Signs Vitals Vital Signs Date Time Temp Pulse Resp B/P Pulse Ox O2 Delivery O2 Flow Rate FiO2 01/12/17 09:15 132 34 185/88 96 01/12/17 08:00 98.3 01/12/17 05:19 30 01/11/17 23:45 5.0 01/11/17 18:00 BIPAP Intake and Output 7/07/3001/11/17 01/12/17 15:00 23:00 07:00 Intake Total 900 ml 550 ml 720 ml Output Total 1750 ml 1700 ml 1500 ml Balance -850 ml -1150 ml -780 ml Exam Constitutional: alert, well developed Psych: nl mood/affect, no complaints Head: atraumatic, normocephalic Eyes: EOMI, nl conjunctiva, nl lids, nl sclera ENMT: mucosa pink and moist, nl external ears & nose, nl lips & teeth, nl nasal mucosa & septum Neck: non-tender, supple Respiratory: clear to auscultation, normal air movement Cardiovascular: nl pulses, regular rate and rhythm Gastrointestinal: bowel sounds, soft, tender (diffusely, no R/G) Results Result Diagram: 01/12/17 0500 01/12/17 0430 Results 24 hrs Laboratory Tests Test 01/11/17 14:28 01/12/17 04:30 01/12/17 05:00 Sodium Level 148 H 147 H Potassium Level 3.1 L 2.9 *L Chloride Level 110 108 Carbon Dioxide Level 29 31 Anion Gap 12 11 Blood Urea Nitrogen 11 11 Creatinine 0.71 0.73 Glucose Level 107 100 Calcium Level 8.5 8.6 Phosphorus Level 2.3 L Magnesium Level 1.9 White Blood Count 10.6 Red Blood Count 3.11 L Hemoglobin 9.6 L Hematocrit 31.1 L Mean Corpuscular Volume 100.0 Mean Corpuscular Hemoglobin 30.9 Mean Corpuscular Hemoglobin Concent 30.9 L Red Cell Distribution Width 20.1 H Platelet Count 298 Mean Platelet Volume 10.7 H Neutrophils % 81.2 H Lymphocytes % 5.5 L Monocytes % 9.6 Eosinophils % 1.9 Basophils % 0.3 Nucleated Red Blood Cells % 0.0 Neutrophils # 8.6 H Lymphocytes # 0.6 L Monocytes # 1.0 H Eosinophils # 0.2 Basophils # 0.0 Nucleated Red Blood Cells # 0.0 Medications Medications Current Medications Ondansetron HCl (Zofran Inj) 4 mg Q6H PRN IV NAUSEA AND/OR VOMITING Last administered on 01/05/17 02:20; Admin Dose 4 MG; Start 12/20/16 at 07:30 Acetaminophen (Tylenol Tab) 650 mg Q6H PRN PO PAIN LEVEL 1-3 OR FEVER Last administered on 01/11/17 19:27; Admin Dose 650 MG; Start 12/20/16 at 07:30 Morphine Sulfate (morphine) 4 mg Q4H PRN IV SEVERE PAIN LEVEL 7-10 Last administered on 01/12/17 03:23; Admin Dose 4 MG; Start 12/20/16 at 07:30 Amlodipine Besylate (Norvasc) 5 mg DAILY PO Last administered on 01/12/17 08:58 ; Admin Dose 5 MG; Start 12/21/16 at 09:00 Acetaminophen/ Hydrocodone Bitart ([place] (5/325)) 1 tab Q6H PRN PO PAIN LEVEL 7 -10 Last administered on 01/03/17 21:54; Admin Dose 1 TAB; Start 12/30/16 at 18 :00 Hydromorphone HCl (Dilaudid) 1 mg Q4H PRN IV SEVERE PAIN LEVEL 7-10 Last administered on 01/05/17 02:21; Admin Dose 1 MG; Start 01/02/17 at 17:45 Senna 1 tab 1 tab BID PO Last administered on 01/12/17 08:58; Admin Dose 1 TAB ; Start 01/03/17 at 21:00 Norepinephrine/ Dextrose (Levophed/D5W) 500 ml @ 1.87 mls/hr TITRATE IV Last administered on 01/05/17 09:13; Admin Dose 28.12 MLS/HR; Start 01/04/17 at 11: 00 Lorazepam (Ativan) 1 mg Q1H PRN IV Seizures Last administered on 01/11/17 20:46 ; Admin Dose 1 MG; Start 01/04/17 at 19:30 IV Flush (NS 10 ml) 10 ml PRN PRN IV FLUSH LINE; Start 01/04/17 at 20:00 Morphine Sulfate (morphine) 2 mg Q4H PRN IV pain Last administered on 01/12/17 09:08; Admin Dose 2 MG; Start 01/05/17 at 01:30 Pantoprazole (Protonix Iv) 40 mg DAILY@06 IV Last administered on 01/12/17 05: 25; Admin Dose 40 MG; Start 01/05/17 at 06:30 Lorazepam 1 mg 1 mg Q4H PRN IV agitation Last administered on 01/09/17 11:02; Admin Dose 1 MG; Start 01/05/17 at 07:00 Fentanyl (Sublimaze) 100 ml @ 2.5 mls/hr TITRATE IV Last administered on 15:27; Admin Dose 5 MLS/HR; Start 01/05/17 at 12:25 Hydralazine HCl 10 mg 10 mg Q2H PRN IV SBP >170 Last administered on 01/12/17 09:07; Admin Dose 10 MG; Start 01/06/17 at 03:00 Fluconazole/ Sodium Chloride 50 ml @ 50 mls/hr Q24H IVPB Last administered on 13:30; Admin Dose 50 MLS/HR; Start 01/07/17 at 12:00 Vancomycin HCl 750 mg/Sodium Chloride 150 ml @ 75 mls/hr Q12H IVPB Last administered on 01/11/17 23:24; Admin Dose 75 MLS/HR; Start 01/09/17 at 11:00 Piperacillin Sod/ Tazobactam Sod (Zosyn 3.375gm/ 100 ml (Pmx)) 100 ml @ 200 mls /hr Q6 IVPB Last administered on 01/12/17 05:25; Admin Dose 200 MLS/HR; Start 01/09/17 at 12:00 Docusate Sodium 100 mg 100 mg BID NGT Last administered on 01/12/17 08:58; Admin Dose 100 MG; Start 01/10/17 at 10:00 Potassium Chloride/Dextrose (KCl/D5W) 1,015 ml @ 70 mls/hr [id number] IV Last administered on 01/12/17 05:25; Admin Dose 70 MLS/HR; Start 01/11/17 at 07:00 Acetylcysteine (Nac) 600 mg BID PO Last administered on 01/12/17 08:58; Admin Dose 600 MG; Start 01/11/17 at 09:30; Stop 01/13/17 at 09:29 Furosemide 20 mg 20 mg Q8 IV Last administered on 01/12/17 05:25; Admin Dose 20 MG; Start 01/11/17 at 14:00 Potassium Chloride 250 ml @ 62.5 mls/hr Q4H IVPB Last administered on 06:21; Admin Dose 62.5 MLS/HR; Start 01/12/17 at 05:30; Stop 01/12/17 at 13: 29 Potassium Phosphate/Sodium Chloride (K Phos (Meq)/NS) 254.5455 ml @ 63.636 m... ONCE ONCE IVPB ; Start 01/12/17 at 07:30; Stop 01/12/17 at 11:29 JANKI RAUSCH MD Jan 12, 2017 09:34
--- NOTE | 2017-01-12 10:43 | CONS ---
Date/Time of Note Date/Time of Note DATE: 01/12/17 TIME: 10:38 Consult Date/Type/Reason Admit Date/Time Dec 19, 2016 at 21:34 Initial Consult Date 12/20/16 Type of Consultation: Pulm/CCM Ordering Provider: KAHLIL MARTEL Subjective Remains on NiPPV with BiPAP. Alert and awake. Objective Vital Signs Date Time Temp Pulse Resp B/P Pulse Ox O2 Delivery O2 Flow Rate FiO2 01/12/17 10:00 129 23 141/72 95 01/12/17 08:00 98.3 01/12/17 05:19 30 01/11/17 23:45 5.0 01/11/17 18:00 BIPAP Intake and Output 01/11/17 01/11/17 01/12/17 15:00 23:00 07:00 Intake Total 900 ml 550 ml 720 ml Output Total 1750 ml 1700 ml 1500 ml Balance -850 ml -1150 ml -780 ml Exam HEENT: Neck supple; no JVD; no LAD CVS: Tachy, S1 and S2, +S3 CHEST: Clear ABD: Soft, NT, + BS, + ascites EXT: No c/c/e Results/Medications Result Diagram: 01/12/17 0500 01/12/17 0430 Results 24 hrs Laboratory Tests Test 01/11/17 14:28 01/12/17 04:30 01/12/17 05:00 Sodium Level 148 H 147 H Potassium Level 3.1 L 2.9 *L Chloride Level 110 108 Carbon Dioxide Level 29 31 Anion Gap 12 11 Blood Urea Nitrogen 11 11 Creatinine 0.71 0.73 Glucose Level 107 100 Calcium Level 8.5 8.6 Phosphorus Level 2.3 L Magnesium Level 1.9 White Blood Count 10.6 Red Blood Count 3.11 L Hemoglobin 9.6 L Hematocrit 31.1 L Mean Corpuscular Volume 100.0 Mean Corpuscular Hemoglobin 30.9 Mean Corpuscular Hemoglobin Concent 30.9 L Red Cell Distribution Width 20.1 H Platelet Count 298 Mean Platelet Volume 10.7 H Neutrophils % 81.2 H Lymphocytes % 5.5 L Monocytes % 9.6 Eosinophils % 1.9 Basophils % 0.3 Nucleated Red Blood Cells % 0.0 Neutrophils # 8.6 H Lymphocytes # 0.6 L Monocytes # 1.0 H Eosinophils # 0.2 Basophils # 0.0 Nucleated Red Blood Cells # 0.0 Medications Current Medications Ondansetron HCl (Zofran Inj) 4 mg Q6H PRN IV NAUSEA AND/OR VOMITING Last administered on 01/05/17 02:20; Admin Dose 4 MG; Start 12/20/16 at 07:30 Acetaminophen (Tylenol Tab) 650 mg Q6H PRN PO PAIN LEVEL 1-3 OR FEVER Last administered on 01/11/17 19:27; Admin Dose 650 MG; Start 12/20/16 at 07:30 Morphine Sulfate (morphine) 4 mg Q4H PRN IV SEVERE PAIN LEVEL 7-10 Last administered on 01/12/17 03:23; Admin Dose 4 MG; Start 12/20/16 at 07:30 Amlodipine Besylate (Norvasc) 5 mg DAILY PO Last administered on 01/12/17 08:58 ; Admin Dose 5 MG; Start 12/21/16 at 09:00 Acetaminophen/ Hydrocodone Bitart ([place] (5/325)) 1 tab Q6H PRN PO PAIN LEVEL 7 -10 Last administered on 01/03/17 21:54; Admin Dose 1 TAB; Start 12/30/16 at 18 :00 Hydromorphone HCl (Dilaudid) 1 mg Q4H PRN IV SEVERE PAIN LEVEL 7-10 Last administered on 01/05/17 02:21; Admin Dose 1 MG; Start 01/02/17 at 17:45 Senna 1 tab 1 tab BID PO Last administered on 01/12/17 08:58; Admin Dose 1 TAB ; Start 01/03/17 at 21:00 Norepinephrine/ Dextrose (Levophed/D5W) 500 ml @ 1.87 mls/hr TITRATE IV Last administered on 01/05/17 09:13; Admin Dose 28.12 MLS/HR; Start 01/04/17 at 11: 00 Lorazepam (Ativan) 1 mg Q1H PRN IV Seizures Last administered on 01/11/17 20:46 ; Admin Dose 1 MG; Start 01/04/17 at 19:30 IV Flush (NS 10 ml) 10 ml PRN PRN IV FLUSH LINE; Start 01/04/17 at 20:00 Morphine Sulfate (morphine) 2 mg Q4H PRN IV pain Last administered on 01/12/17 09:08; Admin Dose 2 MG; Start 01/05/17 at 01:30 Pantoprazole (Protonix Iv) 40 mg DAILY@06 IV Last administered on 01/12/17 05: 25; Admin Dose 40 MG; Start 01/05/17 at 06:30 Lorazepam 1 mg 1 mg Q4H PRN IV agitation Last administered on 01/09/17 11:02; Admin Dose 1 MG; Start 01/05/17 at 07:00 Fentanyl (Sublimaze) 100 ml @ 2.5 mls/hr TITRATE IV Last administered on 15:27; Admin Dose 5 MLS/HR; Start 01/05/17 at 12:25 Hydralazine HCl 10 mg 10 mg Q2H PRN IV SBP >170 Last administered on 01/12/17 09:07; Admin Dose 10 MG; Start 01/06/17 at 03:00 Fluconazole/ Sodium Chloride 50 ml @ 50 mls/hr Q24H IVPB Last administered on 13:30; Admin Dose 50 MLS/HR; Start 01/07/17 at 12:00 Vancomycin HCl 750 mg/Sodium Chloride 150 ml @ 75 mls/hr Q12H IVPB Last administered on 01/11/17 23:24; Admin Dose 75 MLS/HR; Start 01/09/17 at 11:00 Piperacillin Sod/ Tazobactam Sod (Zosyn 3.375gm/ 100 ml (Pmx)) 100 ml @ 200 mls /hr Q6 IVPB Last administered on 01/12/17 05:25; Admin Dose 200 MLS/HR; Start 01/09/17 at 12:00 Docusate Sodium 100 mg 100 mg BID NGT Last administered on 01/12/17 08:58; Admin Dose 100 MG; Start 01/10/17 at 10:00 Potassium Chloride/Dextrose (KCl/D5W) 1,015 ml @ 70 mls/hr [id number] IV Last administered on 01/12/17 05:25; Admin Dose 70 MLS/HR; Start 01/11/17 at 07:00 Acetylcysteine (Nac) 600 mg BID PO Last administered on 01/12/17 08:58; Admin Dose 600 MG; Start 01/11/17 at 09:30; Stop 01/13/17 at 09:29 Furosemide 20 mg 20 mg Q8 IV Last administered on 01/12/17 05:25; Admin Dose 20 MG; Start 01/11/17 at 14:00 Potassium Chloride 250 ml @ 62.5 mls/hr Q4H IVPB Last administered on 10:21; Admin Dose 62.5 MLS/HR; Start 01/12/17 at 05:30; Stop 01/12/17 at 13: 29 Potassium Phosphate/Sodium Chloride (K Phos (Meq)/NS) 254.5455 ml @ 63.636 m... ONCE ONCE IVPB Last administered on 01/12/17 09:39; Admin Dose 63.636 MLS /HR; Start 01/12/17 at 07:30; Stop 01/12/17 at 11:29 Assessment/Plan Additional Assessment/Plan IMP: 1. Septic Shock 2. Respiratory Failure 3. Encephalopathy 4. s/p GRICELDA 5. 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 Volume overload RECS: 1. Continue BiPAP 2. Diuresis to continue 3. Would start empiric low-dose corticosteroids for possible IgG4-related disease 4. Replete K+; follow K+ and Mg 35 min cc time ANKUSH GARRIDO MD Jan 12, 2017 10:43
[2017-01-12] MEDS: METHYLPREDNISOLONE 40 MG INJ IV SCH (11:36)
[2017-01-12] MEDS: FLUCONAZOLE 100 MG/NS (PMX) 50 ML IVPB SCH (11:36)
[2017-01-12] MEDS: VANCOMYCIN 750 MG in SOD CHLORIDE 0.9% 150 ML IVPB SCH ×2 (11:36→23:05)
--- NOTE | 2017-01-12 13:24 | CONS ---
Date/Time of Note Date/Time of Note DATE: 01/12/17 TIME: 13:23 Assessment/Plan Assessment/Plan Chief Complaint/Hosp Course ID PROGRESS NOTE ABX DAY #9 => Vanco IV + Zosyn 24H INTERVAL SUMMARY * Alert remains on bipap -> Extubated 01/09, VSS, no fevers, renal fx stable on current ABX * Low grade Temps 99.0 range, VSS, NAD ID ASSESSMENT: 51 yo Obese F admitted with: 1. SIRS s/p sepsis w/shock> s/p Aspiration event in setting (+)Szs, (+)Lactic acidosis, symptomatic anemia -> s/p PRBC Tx * ABX restarted 01/04/17 broad spectrum empiric coverage for HCAP 2. Hepatic lesion. Status post liver biopsy that revealed no abscess and no evidence of metastatic disease. * MICRO Source: LIVER MASS Sp Descrip: Microbiology GRAM STAIN Final POLYMORPH. LEUKOCYTE NONE SEEN . NO ORGANISM SEEN TISSUE (BIOPSY) CULTURE Final No growth after 3 day 3. Pelvic mass. The patient is being evaluated by Dr. Jaimes. 4. Respiratory failure -> bipap. 5. Anemia and acute renal failure. 6. Esophageal ulceration, per EGD. 3. Portal vein thrombosis. 4. HCAP -> Abnormal CT chest with multiple nodular airspace opacities. 5. Acute renal failure. 6. Anemia ABX ALLERGIES: KNDA INVASIVES: *PIV, CURRENT ABX: ABX DAY #9 => Vanco IV + Zosyn ID RECOMMENDATIONS: 1. Continue ABX -- further recs per clinical response, ID colleague team f/u . . Problems: Consultation Date/Type/Reason Admit Date/Time Dec 19, 2016 at 21:34 Initial Consult Date 12/26/16 Type of Consultation: ID Referring Provider: KAHLIL MARTEL Exam/Review of Systems Vital Signs Vitals Vital Signs Date Time Temp Pulse Resp B/P Pulse Ox O2 Delivery O2 Flow Rate FiO2 01/12/17 12:45 117 18 144/76 97 01/12/17 12:00 99.0 01/12/17 11:20 30 01/11/17 23:45 5.0 01/11/17 18:00 BIPAP Intake and Output 01/11/17 01/11/17 01/12/17 15:00 23:00 07:00 Intake Total 900 ml 550 ml 720 ml Output Total 1750 ml 1700 ml 1500 ml Balance -850 ml -1150 ml -780 ml Results Result Diagram: 01/12/17 0500 01/12/17 0430 Results 24 hrs Laboratory Tests Test 01/11/17 14:28 01/12/17 04:30 01/12/17 05:00 Sodium Level 148 H 147 H Potassium Level 3.1 L 2.9 *L Chloride Level 110 108 Carbon Dioxide Level 29 31 Anion Gap 12 11 Blood Urea Nitrogen 11 11 Creatinine 0.71 0.73 Glucose Level 107 100 Calcium Level 8.5 8.6 Phosphorus Level 2.3 L Magnesium Level 1.9 White Blood Count 10.6 Red Blood Count 3.11 L Hemoglobin 9.6 L Hematocrit 31.1 L Mean Corpuscular Volume 100.0 Mean Corpuscular Hemoglobin 30.9 Mean Corpuscular Hemoglobin Concent 30.9 L Red Cell Distribution Width 20.1 H Platelet Count 298 Mean Platelet Volume 10.7 H Neutrophils % 81.2 H Lymphocytes % 5.5 L Monocytes % 9.6 Eosinophils % 1.9 Basophils % 0.3 Nucleated Red Blood Cells % 0.0 Neutrophils # 8.6 H Lymphocytes # 0.6 L Monocytes # 1.0 H Eosinophils # 0.2 Basophils # 0.0 Nucleated Red Blood Cells # 0.0 Medications Medications Current Medications Ondansetron HCl (Zofran Inj) 4 mg Q6H PRN IV NAUSEA AND/OR VOMITING Last administered on 01/05/17 02:20; Admin Dose 4 MG; Start 12/20/16 at 07:30 Acetaminophen (Tylenol Tab) 650 mg Q6H PRN PO PAIN LEVEL 1-3 OR FEVER Last administered on 01/11/17 19:27; Admin Dose 650 MG; Start 12/20/16 at 07:30 Morphine Sulfate (morphine) 4 mg Q4H PRN IV SEVERE PAIN LEVEL 7-10 Last administered on 01/12/17 11:23; Admin Dose 4 MG; Start 12/20/16 at 07:30 Amlodipine Besylate (Norvasc) 5 mg DAILY PO Last administered on 01/12/17 08:58 ; Admin Dose 5 MG; Start 12/21/16 at 09:00 Acetaminophen/ Hydrocodone Bitart ([place] (5/325)) 1 tab Q6H PRN PO PAIN LEVEL 7 -10 Last administered on 01/03/17 21:54; Admin Dose 1 TAB; Start 12/30/16 at 18 :00 Hydromorphone HCl (Dilaudid) 1 mg Q4H PRN IV SEVERE PAIN LEVEL 7-10 Last administered on 01/05/17 02:21; Admin Dose 1 MG; Start 01/02/17 at 17:45 Senna 1 tab 1 tab BID PO Last administered on 01/12/17 08:58; Admin Dose 1 TAB ; Start 01/03/17 at 21:00 Norepinephrine/ Dextrose (Levophed/D5W) 500 ml @ 1.87 mls/hr TITRATE IV Last administered on 01/05/17 09:13; Admin Dose 28.12 MLS/HR; Start 01/04/17 at 11: 00 Lorazepam (Ativan) 1 mg Q1H PRN IV Seizures Last administered on 01/11/17 20:46 ; Admin Dose 1 MG; Start 01/04/17 at 19:30 IV Flush (NS 10 ml) 10 ml PRN PRN IV FLUSH LINE; Start 01/04/17 at 20:00 Morphine Sulfate (morphine) 2 mg Q4H PRN IV pain Last administered on 01/12/17 09:08; Admin Dose 2 MG; Start 01/05/17 at 01:30 Pantoprazole (Protonix Iv) 40 mg DAILY@06 IV Last administered on 01/12/17 05: 25; Admin Dose 40 MG; Start 01/05/17 at 06:30 Lorazepam 1 mg 1 mg Q4H PRN IV agitation Last administered on 01/09/17 11:02; Admin Dose 1 MG; Start 01/05/17 at 07:00 Fentanyl (Sublimaze) 100 ml @ 2.5 mls/hr TITRATE IV Last administered on 15:27; Admin Dose 5 MLS/HR; Start 01/05/17 at 12:25 Hydralazine HCl 10 mg 10 mg Q2H PRN IV SBP >170 Last administered on 01/12/17 09:07; Admin Dose 10 MG; Start 01/06/17 at 03:00 Fluconazole/ Sodium Chloride 50 ml @ 50 mls/hr Q24H IVPB Last administered on 11:36; Admin Dose 50 MLS/HR; Start 01/07/17 at 12:00 Vancomycin HCl 750 mg/Sodium Chloride 150 ml @ 75 mls/hr Q12H IVPB Last administered on 01/12/17 11:36; Admin Dose 75 MLS/HR; Start 01/09/17 at 11:00 Piperacillin Sod/ Tazobactam Sod (Zosyn 3.375gm/ 100 ml (Pmx)) 100 ml @ 200 mls /hr Q6 IVPB Last administered on 01/12/17 11:36; Admin Dose 200 MLS/HR; Start 01/09/17 at 12:00 Docusate Sodium 100 mg 100 mg BID NGT Last administered on 01/12/17 08:58; Admin Dose 100 MG; Start 01/10/17 at 10:00 Potassium Chloride/Dextrose (KCl/D5W) 1,015 ml @ 70 mls/hr [id number] IV Last administered on 01/12/17 05:25; Admin Dose 70 MLS/HR; Start 01/11/17 at 07:00 Acetylcysteine (Nac) 600 mg BID PO Last administered on 01/12/17 08:58; Admin Dose 600 MG; Start 01/11/17 at 09:30; Stop 01/13/17 at 09:29 Furosemide 20 mg 20 mg Q8 IV Last administered on 01/12/17 05:25; Admin Dose 20 MG; Start 01/11/17 at 14:00 Potassium Chloride (KCl 40 MEQ/250 ML NS) 250 ml @ 62.5 mls/hr Q4H IVPB Last administered on 01/12/17 10:21; Admin Dose 62.5 MLS/HR; Start 01/12/17 at 05:30; Stop 01/12/17 at 13:29 Methylprednisolone Sodium Succinate (Solu-Medrol) 40 mg DAILY IV Last administered on 01/12/17 11:36; Admin Dose 40 MG; Start 01/12/17 at 11:00 Miscellaneous Information (*Rx Drug Level Order Reminder*) VANCOMYIN TROUGH 01/12 AT 2200 ONCE ONCE XX ; Start 01/12/17 at 22:00; Stop 01/12/17 at 22:01 LASHONDA PATTERSON NP Jan 12, 2017 13:24
[2017-01-12] MEDS: LORAZEPAM 2 MG INJ IV PRN ×2 (14:31→21:54)
[2017-01-12 14:50] LABS: AADO2 Arterial 82.5 mmHg (7.0-24.0); Allen Test ACCEPTAB; Arterial Base Excess 0.2 mmol/L (-3.0-3); Arterial COHb 1.7 % (0.0-3.0); Arterial Fraction of Oxyhgb 93.9 % (93.0-99.0); Arterial HCO3 24.5 mmol/L (22.0-26.0); Arterial MetHb 0.6 % (0.0-1.5); Arterial Total Hemglobin 11.3 g/dl (12.0-18.0); Blood Gas IEPAP 15/5; MODE MASK - BIPAP
[2017-01-13] VITALS (33 sets, daily range): BP systolic 126–171; BP diastolic 73–117; PULSE 73–125; RESP 17–37
[2017-01-13] MEDS: PIPER-TAZO 3.375 GM IV (PMX) 100 ML IVPB SCH ×5 (00:03→23:27)
[2017-01-13 05:00] LABS: BASOPHILS % 0.1 % (0.0-2.0); HEMATOCRIT 33.2 % (37.0-47.0); HEMOGLOBIN 10.4 g/dl (12.0-16.0); LYMPHOCYTES # 0.9 10^3/ul (0.8-2.9); LYMPHOCYTES % 5.9 % (15.0-51.0); MEAN CORPUSCULAR HEMOGLOBIN 30.8 pg (29.0-33.0); MEAN CORPUSCULAR HGB CONC 31.3 g/dl (32.0-37.0); MEAN CORPUSCULAR VOLUME 98.2 fl (82.0-101.0); MEAN PLATELET VOLUME 10.7 fl (7.4-10.4); MONOCYTE # 1.2 10^3/ul (0.3-0.9); MONOCYTES % 7.9 % (0.0-11.0); NEUTROPHIL # 12.5 10^3/ul (1.6-7.5); NEUTROPHILS % 85.2 % (39.0-77.0); PLATELET COUNT 379 10^3/UL (140-415); RED BLOOD COUNT 3.38 10^6/ul (4.20-5.40); RED CELL DISTRIBUTION WIDTH 19.9 % (11.5-14.5); WHITE BLOOD COUNT 14.6 10^3/ul (4.8-10.8)
[2017-01-13 05:16] LABS: ADD SCAN DIFF NO
[2017-01-13 05:23] LABS: ALBUMIN 4.2 g/dl (3.3-4.9); ALBUMIN/GLOBULIN RATIO 1.35; BILIRUBIN,DIRECT 1.7 mg/dl (0.00-0.20); BILIRUBIN,INDIRECT 2.4 mg/dl (0-1.1); BILIRUBIN,TOTAL 4.1 mg/dl (0.2-1.3); CALCIUM 9.1 mg/dl (8.4-10.2); CREATININE 0.66 mg/dl (0.44-1.00); MAGNESIUM 1.7 mg/dl (1.7-2.5); PHOSPHORUS 2.3 mg/dl (2.5-4.9); POTASSIUM 3.1 mmol/L (3.5-5.1); TOTAL PROTEIN 7.3 g/dl (6.1-8.1)
[2017-01-13] MEDS: PANTOPRAZOLE 40 MG INJ IV SCH (05:47)
[2017-01-13] MEDS: FUROSEMIDE 20 MG INJ IV SCH ×3 (05:48→22:15)
--- NOTE | 2017-01-13 07:45 | PN ---
Date/Time of Note Date/Time of Note DATE: 01/13/17 TIME: 07:40 Assessment/Plan Lines/Catheters IV C[facility] Type (from [facility]): PICC Line Urinary Cath still in place: Yes Assessment/Plan Chief Complaint/Hosp Course 1. Nonoliguric acute kidney injury with previously normal baseline creatinine. Etiology secondary to acute tubular necrosis due to severe anemia, ischemic hypoperfusion, shock. - Patient's renal function has stabilized, no signs of contrast associated - continue current treatment plan, supportive care, renally dose all medications. 2. s/p intra-abdominal bleed. -Hemoglobin levels have been stable. Continue to monitor 3. Volume overload. Improving continue t diuretic therapy as needed. 4. Hypernatremia. -Improving Continue- D5W -Monitor serial sodium levels 3. Mineral bone disease. Will continue to monitor calcium, phosphorus levels. Replace phosphorus 4. hypokalemia/hypomagnesemia. Monitor and replace as needed 5. Sepsis. status post shock, currently off pressor support. Continue current antibiotic regimen. 6. Hypoxemic respiratory failure. Patient BIPAP. Continue to monitor. Follow -up with pulmonary. CT angiogram showed no evidence of PE 7. Portal vein thrombosis. 8. Multiple liver lesions status post biopsy. Findings consistent with possible lymphoplasmacytic involvement will continue to monitor. Follow up with hematology. 9. Uterine mass. Followup with Gynecology/Oncology. Status post code arrest. Please note I spent over 45 minutes of critical care time with this patient. Problems: Subjective 24 Hr Interval Summary Free Text/Dictation Patient critical but stable. Remains on BiPAP. Diuresing well on Lasix. Exam/Review of Systems Vital Signs Vitals Vital Signs Date Time Temp Pulse Resp B/P Pulse Ox O2 Delivery O2 Flow Rate FiO2 01/13/17 06:00 106 37 160/85 96 01/13/17 05:40 30 01/13/17 04:00 99.0 01/11/17 23:45 5.0 01/11/17 18:00 BIPAP Intake and Output 01/12/17 01/12/17 01/13/17 15:00 23:00 07:00 Intake Total 740 ml 1419 ml 740 ml Output Total 2100 ml 2010 ml 1470 ml Balance -1360 ml -591 ml -730 ml Exam HEENT: Head is normocephalic. Pupils are reactive to light. NECK: Supple. HEART: Regular rate. LUNGS: Show diminished breath sounds at base. ABDOMEN: Soft, nontender to palpation. No rebound or guarding. EXTREMITIES: Negative for clubbing, cyanosis, no edema. DERMATOLOGIC: No rashes. MUSCULOSKELETAL: No joint effusions. NEUROLOGIC: No change in exam. Results Result Diagram: 01/13/17 0430 01/13/17 0430 Results 24 hrs Laboratory Tests Test 01/12/17 22:08 01/13/17 04:30 Vancomycin Level Trough 12.3 White Blood Count 14.6 #H Red Blood Count 3.38 L Hemoglobin 10.4 L Hematocrit 33.2 L Mean Corpuscular Volume 98.2 Mean Corpuscular Hemoglobin 30.8 Mean Corpuscular Hemoglobin Concent 31.3 L Red Cell Distribution Width 19.9 H Platelet Count 379 # Mean Platelet Volume 10.7 H Neutrophils % 85.2 H Lymphocytes % 5.9 L Monocytes % 7.9 Eosinophils % 0.0 Basophils % 0.1 Nucleated Red Blood Cells % 0.0 Neutrophils # 12.5 H Lymphocytes # 0.9 Monocytes # 1.2 H Eosinophils # 0.0 Basophils # 0.0 Nucleated Red Blood Cells # 0.0 Sodium Level 146 H Potassium Level 3.1 L Chloride Level 107 Carbon Dioxide Level 32 H Anion Gap 10 Blood Urea Nitrogen 14 Creatinine 0.66 Glucose Level 117 Calcium Level 9.1 Phosphorus Level 2.3 L Magnesium Level 1.7 Total Bilirubin 4.1 H Direct Bilirubin 1.70 H Indirect Bilirubin 2.4 H Aspartate Amino Transf (AST/SGOT) 36 Alanine Aminotransferase (ALT/SGPT) 45 Alkaline Phosphatase 123 H Total Protein 7.3 Albumin 4.2 Globulin 3.10 Albumin/Globulin Ratio 1.35 Medications Medications Current Medications Ondansetron HCl (Zofran Inj) 4 mg Q6H PRN IV NAUSEA AND/OR VOMITING Last administered on 01/05/17 02:20; Admin Dose 4 MG; Start 12/20/16 at 07:30 Acetaminophen (Tylenol Tab) 650 mg Q6H PRN PO PAIN LEVEL 1-3 OR FEVER Last administered on 01/11/17 19:27; Admin Dose 650 MG; Start 12/20/16 at 07:30 Morphine Sulfate (morphine) 4 mg Q4H PRN IV SEVERE PAIN LEVEL 7-10 Last administered on 01/12/17 11:23; Admin Dose 4 MG; Start 12/20/16 at 07:30 Amlodipine Besylate (Norvasc) 5 mg DAILY PO Last administered on 01/12/17 08:58 ; Admin Dose 5 MG; Start 12/21/16 at 09:00 Acetaminophen/ Hydrocodone Bitart ([place] (5/325)) 1 tab Q6H PRN PO PAIN LEVEL 7 -10 Last administered on 01/03/17 21:54; Admin Dose 1 TAB; Start 12/30/16 at 18 :00 Hydromorphone HCl (Dilaudid) 1 mg Q4H PRN IV SEVERE PAIN LEVEL 7-10 Last administered on 01/05/17 02:21; Admin Dose 1 MG; Start 01/02/17 at 17:45 Senna 1 tab 1 tab BID PO Last administered on 01/12/17 20:53; Admin Dose 1 TAB ; Start 01/03/17 at 21:00 Norepinephrine/ Dextrose (Levophed/D5W) 500 ml @ 1.87 mls/hr TITRATE IV Last administered on 01/05/17 09:13; Admin Dose 28.12 MLS/HR; Start 01/04/17 at 11: 00 Lorazepam (Ativan) 1 mg Q1H PRN IV Seizures Last administered on 01/12/17 14:31 ; Admin Dose 1 MG; Start 01/04/17 at 19:30 IV Flush (NS 10 ml) 10 ml PRN PRN IV FLUSH LINE; Start 01/04/17 at 20:00 Morphine Sulfate (morphine) 2 mg Q4H PRN IV pain Last administered on 01/12/17 09:08; Admin Dose 2 MG; Start 01/05/17 at 01:30 Pantoprazole (Protonix Iv) 40 mg DAILY@06 IV Last administered on 01/13/17 05: 47; Admin Dose 40 MG; Start 01/05/17 at 06:30 Lorazepam 1 mg 1 mg Q4H PRN IV agitation Last administered on 01/12/17 21:54; Admin Dose 1 MG; Start 01/05/17 at 07:00 Fentanyl (Sublimaze) 100 ml @ 2.5 mls/hr TITRATE IV Last administered on 15:27; Admin Dose 5 MLS/HR; Start 01/05/17 at 12:25 Hydralazine HCl 10 mg 10 mg Q2H PRN IV SBP >170 Last administered on 01/12/17 22:01; Admin Dose 10 MG; Start 01/06/17 at 03:00 Fluconazole/ Sodium Chloride 50 ml @ 50 mls/hr Q24H IVPB Last administered on 11:36; Admin Dose 50 MLS/HR; Start 01/07/17 at 12:00 Vancomycin HCl 750 mg/Sodium Chloride 150 ml @ 75 mls/hr Q12H IVPB Last administered on 01/12/17 23:05; Admin Dose 75 MLS/HR; Start 01/09/17 at 11:00 Piperacillin Sod/ Tazobactam Sod (Zosyn 3.375gm/ 100 ml (Pmx)) 100 ml @ 200 mls /hr Q6 IVPB Last administered on 01/13/17 05:47; Admin Dose 200 MLS/HR; Start 01/09/17 at 12:00 Docusate Sodium 100 mg 100 mg BID NGT Last administered on 01/12/17 20:53; Admin Dose 100 MG; Start 01/10/17 at 10:00 Potassium Chloride/Dextrose (KCl/D5W) 1,015 ml @ 70 mls/hr [id number] IV Last administered on 01/12/17 20:53; Admin Dose 70 MLS/HR; Start 01/11/17 at 07:00 Acetylcysteine (Nac) 600 mg BID PO Last administered on 01/12/17 20:53; Admin Dose 600 MG; Start 01/11/17 at 09:30; Stop 01/13/17 at 09:29 Furosemide (Lasix) 20 mg Q8 IV Last administered on 01/13/17 05:48; Admin Dose 20 MG; Start 01/11/17 at 14:00 Methylprednisolone Sodium Succinate (Solu-Medrol) 40 mg DAILY IV Last administered on 01/12/17 11:36; Admin Dose 40 MG; Start 01/12/17 at 11:00 MILLY DAIGLE DO Jan 13, 2017 07:44
[2017-01-13] MEDS: POTASSIUM CHLORIDE 50 ML IVPB PRN ×3 (08:19→11:36)
[2017-01-13] MEDS: ACETYLCYSTEINE 600 MG CAP PO SCH (09:00)
[2017-01-13] MEDS: DOCUSATE SODIUM 10 MG/ML (10ML CUP) NGT SCH ×2 (09:00→22:15)
[2017-01-13] MEDS: SENNA TAB PO SCH ×2 (09:00→22:15)
[2017-01-13 09:33] LABS: AADO2 Arterial 86.9 mmHg (7.0-24.0); Allen Test ACCEPTAB; Arterial Base Excess 6.4 mmol/L (-3.0-3); Arterial COHb 2.3 % (0.0-3.0); Arterial Fraction of Oxyhgb 93.7 % (93.0-99.0); Arterial HCO3 29.8 mmol/L (22.0-26.0); Arterial MetHb 0.8 % (0.0-1.5); Arterial Total Hemglobin 10.8 g/dl (12.0-18.0); Blood Gas IEPAP 15/5; Blood Gas PS 10; MODE MASK - BIPAP
--- NOTE | 2017-01-13 09:39 | CONS ---
Date/Time of Note Date/Time of Note DATE: 01/13/17 TIME: 09:37 Consult Date/Type/Reason Admit Date/Time Dec 19, 2016 at 21:34 Initial Consult Date 12/20/16 Type of Consultation: Pulmonary ICU Ordering Provider: KAHLIL MARTEL Subjective Patient remains mostly BiPAP dependent Awake alert and oriented not tolerating high flow O2 Objective Vital Signs Date Time Temp Pulse Resp B/P Pulse Ox O2 Delivery O2 Flow Rate FiO2 01/13/17 08:00 87 01/13/17 06:00 37 160/85 96 01/13/17 05:40 30 01/13/17 04:00 99.0 01/11/17 23:45 5.0 01/11/17 18:00 BIPAP Intake and Output 01/12/17 01/12/17 01/13/17 15:00 23:00 07:00 Intake Total 740 ml 1419 ml 740 ml Output Total 2100 ml 2010 ml 1470 ml Balance -1360 ml -591 ml -730 ml Exam Events GENERAL: Well-nourished well-developed lady comfortable at rest no acute distress VITAL SIGNS: per chart NECK: Supple. No JVD or lymphadenopathy. CARDIAC EXAM: S1, S2. No added sounds or murmurs. CHEST: clear bilaterally, No added sounds, rales or wheezes ABDOMEN: Soft, nontender. No guarding or rebound. Mild distention EXTREMITIES: No cyanosis, clubbing or edema. NEUROLOGIC: Generalized weakness. No focal deficits. Results/Medications Result Diagram: 01/13/17 0430 01/13/17 0430 Results 24 hrs Laboratory Tests Test 01/12/17 22:08 01/13/17 04:30 01/13/17 05:00 Vancomycin Level Trough 12.3 White Blood Count 14.6 #H Red Blood Count 3.38 L Hemoglobin 10.4 L Hematocrit 33.2 L Mean Corpuscular Volume 98.2 Mean Corpuscular Hemoglobin 30.8 Mean Corpuscular Hemoglobin Concent 31.3 L Red Cell Distribution Width 19.9 H Platelet Count 379 # Mean Platelet Volume 10.7 H Neutrophils % 85.2 H Lymphocytes % 5.9 L Monocytes % 7.9 Eosinophils % 0.0 Basophils % 0.1 Nucleated Red Blood Cells % 0.0 Neutrophils # 12.5 H Lymphocytes # 0.9 Monocytes # 1.2 H Eosinophils # 0.0 Basophils # 0.0 Nucleated Red Blood Cells # 0.0 Sodium Level 146 H Potassium Level 3.1 L Chloride Level 107 Carbon Dioxide Level 32 H Anion Gap 10 Blood Urea Nitrogen 14 Creatinine 0.66 Glucose Level 117 Calcium Level 9.1 Phosphorus Level 2.3 L Magnesium Level 1.7 Total Bilirubin 4.1 H Direct Bilirubin 1.70 H Indirect Bilirubin 2.4 H Aspartate Amino Transf (AST/SGOT) 36 Alanine Aminotransferase (ALT/SGPT) 45 Alkaline Phosphatase 123 H Total Protein 7.3 Albumin 4.2 Globulin 3.10 Albumin/Globulin Ratio 1.35 Blood Gas Specimen Source Blood arterial Arterial Blood Date Drawn 01/13/2017 5:10:00 AM Arterial Blood pH (Temp corrected) 7.512 H Arterial Blood pCO2 (Temp correct) 38.0 Arterial Blood pO2 (Temp corrected) 82.4 Arterial Blood HCO3 29.8 H Arterial Blood Base Excess 6.4 H Arterial Blood Oxygen Saturation 96.7 [place] Test ACCEPTAB Arterial Blood Gas Puncture Site Right Radial Arterial Blood Carboxyhemoglobin 2.3 Arterial Blood Methemoglobin 0.8 Blood Gas A-a O2 Differential 86.9 H Oxyhemoglobin Percent 93.7 Total Hemoglobin 10.8 L Blood Gas Temperature 37.0 Blood Gas Respiration Rate 16.0 Blood Gas Actual Respiration Rate 18 Blood Gas Modality MASK - BIPAP FiO2 30.0 Blood Gas Pressure Support 10 Blood Gas IPAP/EPAP Ratio 15/5 Blood Gas Notified Whom MA Blood Gas Notified Time 01/13/2017 5:29:00 AM Medications Current Medications Ondansetron HCl (Zofran Inj) 4 mg Q6H PRN IV NAUSEA AND/OR VOMITING Last administered on 01/05/17 02:20; Admin Dose 4 MG; Start 12/20/16 at 07:30 Acetaminophen (Tylenol Tab) 650 mg Q6H PRN PO PAIN LEVEL 1-3 OR FEVER Last administered on 01/11/17 19:27; Admin Dose 650 MG; Start 12/20/16 at 07:30 Morphine Sulfate (morphine) 4 mg Q4H PRN IV SEVERE PAIN LEVEL 7-10 Last administered on 01/12/17 11:23; Admin Dose 4 MG; Start 12/20/16 at 07:30 Amlodipine Besylate (Norvasc) 5 mg DAILY PO Last administered on 01/12/17 08:58 ; Admin Dose 5 MG; Start 12/21/16 at 09:00 Acetaminophen/ Hydrocodone Bitart ([place] (5/325)) 1 tab Q6H PRN PO PAIN LEVEL 7 -10 Last administered on 01/03/17 21:54; Admin Dose 1 TAB; Start 12/30/16 at 18 :00 Hydromorphone HCl (Dilaudid) 1 mg Q4H PRN IV SEVERE PAIN LEVEL 7-10 Last administered on 01/05/17 02:21; Admin Dose 1 MG; Start 01/02/17 at 17:45 Senna 1 tab 1 tab BID PO Last administered on 01/12/17 20:53; Admin Dose 1 TAB ; Start 01/03/17 at 21:00 Norepinephrine/ Dextrose (Levophed/D5W) 500 ml @ 1.87 mls/hr TITRATE IV Last administered on 01/05/17 09:13; Admin Dose 28.12 MLS/HR; Start 01/04/17 at 11: 00 Lorazepam (Ativan) 1 mg Q1H PRN IV Seizures Last administered on 01/12/17 14:31 ; Admin Dose 1 MG; Start 01/04/17 at 19:30 IV Flush (NS 10 ml) 10 ml PRN PRN IV FLUSH LINE; Start 01/04/17 at 20:00 Morphine Sulfate (morphine) 2 mg Q4H PRN IV pain Last administered on 01/12/17 09:08; Admin Dose 2 MG; Start 01/05/17 at 01:30 Pantoprazole (Protonix Iv) 40 mg DAILY@06 IV Last administered on 01/13/17 05: 47; Admin Dose 40 MG; Start 01/05/17 at 06:30 Lorazepam 1 mg 1 mg Q4H PRN IV agitation Last administered on 01/12/17 21:54; Admin Dose 1 MG; Start 01/05/17 at 07:00 Fentanyl (Sublimaze) 100 ml @ 2.5 mls/hr TITRATE IV Last administered on 15:27; Admin Dose 5 MLS/HR; Start 01/05/17 at 12:25 Hydralazine HCl 10 mg 10 mg Q2H PRN IV SBP >170 Last administered on 01/12/17 22:01; Admin Dose 10 MG; Start 01/06/17 at 03:00 Fluconazole/ Sodium Chloride 50 ml @ 50 mls/hr Q24H IVPB Last administered on 11:36; Admin Dose 50 MLS/HR; Start 01/07/17 at 12:00 Vancomycin HCl 750 mg/Sodium Chloride 150 ml @ 75 mls/hr Q12H IVPB Last administered on 01/12/17 23:05; Admin Dose 75 MLS/HR; Start 01/09/17 at 11:00 Piperacillin Sod/ Tazobactam Sod (Zosyn 3.375gm/ 100 ml (Pmx)) 100 ml @ 200 mls /hr Q6 IVPB Last administered on 01/13/17 05:47; Admin Dose 200 MLS/HR; Start 01/09/17 at 12:00 Docusate Sodium 100 mg 100 mg BID NGT Last administered on 01/12/17 20:53; Admin Dose 100 MG; Start 01/10/17 at 10:00 Potassium Chloride/Dextrose (KCl/D5W) 1,015 ml @ 70 mls/hr [id number] IV Last administered on 01/12/17 20:53; Admin Dose 70 MLS/HR; Start 01/11/17 at 07:00 Furosemide (Lasix) 20 mg Q8 IV Last administered on 01/13/17 05:48; Admin Dose 20 MG; Start 01/11/17 at 14:00 Methylprednisolone Sodium Succinate (Solu-Medrol) 40 mg DAILY IV Last administered on 01/12/17 11:36; Admin Dose 40 MG; Start 01/12/17 at 11:00 Assessment/Plan Chief Complaint/Hosp Course IMP: 1. Status post septic Shock 2. Respiratory Failure secondary to hypoventilation and right lower lobe pneumonia 3. Encephalopathy 4. s/p GRICELDA 5. 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 Volume overload RECS: 1. Continue BiPAP 2. Diuresis to continue 3. Would start empiric low-dose corticosteroids for possible IgG4-related disease 4. Replete K+; follow K+ and Mg 5. Consider gynecology oncology surgery evaluation 35 min cc time Problems: JASON ROUSE MD, [facility] Jan 13, 2017 09:39
[2017-01-13] MEDS: AMLODIPINE 5 MG TAB PO SCH (09:45)
[2017-01-13] MEDS: METHYLPREDNISOLONE 40 MG INJ IV SCH (09:58)
[2017-01-13] MEDS: POTASSIUM CHLORIDE 30 MEQ in DEXTROSE 5% 1,000 ML IV SCH (11:35)
[2017-01-13] MEDS: VANCOMYCIN 750 MG in SOD CHLORIDE 0.9% 150 ML IVPB SCH ×2 (11:44→22:15)
[2017-01-13] MEDS: FLUCONAZOLE 100 MG/NS (PMX) 50 ML IVPB SCH (12:57)
--- NOTE | 2017-01-13 15:53 | PN ---
Date/Time of Note Date/Time of Note DATE: 01/13/17 TIME: 15:33 Assessment/Plan VTE Prophylaxis VTE Prophylaxis Intervention: SCD's Assessment/Plan Chief Complaint/Hosp Course 1. Severe systemic shock likely hypovolemic from acute intra-abdominal hemorrhage / subcapsular hepatic hematoma causing severe coagulopathy: resolved 2. Persistent resp failure 2/2 aspiration pneumonia: extubated now but dependent on bipap 3. Acute encephalopathy secondary to pneumonia-resolved 4. Recurrence of acute kidney injury secondary to #1: improving 5. 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 Hypertension: better control 7. Diffuse venous thrombosis to include hepatic, portal, and right upper extremity veins 8. Status post alpha hemolytic strep bacteremia 9. Solitary seizure episode likely secondary to #1 10. Acute transaminitis and coagulopathy secondary to subcapsular hematoma s/ p status post hepatic artery ligation versus embolization via IR : Improving 11. Maurice Pneumonia R >>L. * Had lung nodules on admission likely 2/2 pneumonia, no longer present on CT 12. Debility 13. Mild hepatic infarct on CT likely related to #10 14. Persistent hypokalemia and hypophosphatemia Plan: * Resp status is still poor, remain in ICU /continue gentle diuresis * NG tube feedings have been on hold secondary to BiPAP * Patient remains on D5 water with potassium chloride, but is also on Lasix for diuresis * Monitor and replace electrolytes * Continue to closely monitor hemoglobin levels and liver function * Patient remains off anticoagulation d/t bleeding * Patient continues on abx per ID * Will d/c Keppra as seizure was provoked, with no further seizures * Regarding uterine lesion, patient may benefit from total hysterectomy and possible salpingo-oophorectomy with mass excision and biopsy if able to stabilize her. Prophylaxis: SCDs/IV PPI Problems: Subjective 24 Hr Interval Summary Constitutional: no complaints Exam/Review of Systems Vital Signs Vitals Vital Signs Date Time Temp Pulse Resp B/P Pulse Ox O2 Delivery O2 Flow Rate FiO2 01/13/17 12:00 88 01/13/17 10:25 96 30 01/13/17 06:00 37 160/85 01/13/17 04:00 99.0 01/11/17 23:45 5.0 01/11/17 18:00 BIPAP Intake and Output 7/201/12/17 01/13/17 15:00 23:00 07:00 Intake Total 740 ml 1419 ml 740 ml Output Total 2100 ml 2010 ml 1470 ml Balance -1360 ml -591 ml -730 ml Exam Constitutional: alert Respiratory: clear to auscultation Cardiovascular: regular rate and rhythm Gastrointestinal: soft, No distended Musculoskeletal: nl extremities to inspection Results Result Diagram: 01/13/17 0430 01/13/17 0430 Results 24 hrs Laboratory Tests Test 01/12/17 22:08 01/13/17 04:30 01/13/17 05:00 Vancomycin Level Trough 12.3 White Blood Count 14.6 #H Red Blood Count 3.38 L Hemoglobin 10.4 L Hematocrit 33.2 L Mean Corpuscular Volume 98.2 Mean Corpuscular Hemoglobin 30.8 Mean Corpuscular Hemoglobin Concent 31.3 L Red Cell Distribution Width 19.9 H Platelet Count 379 # Mean Platelet Volume 10.7 H Neutrophils % 85.2 H Lymphocytes % 5.9 L Monocytes % 7.9 Eosinophils % 0.0 Basophils % 0.1 Nucleated Red Blood Cells % 0.0 Neutrophils # 12.5 H Lymphocytes # 0.9 Monocytes # 1.2 H Eosinophils # 0.0 Basophils # 0.0 Nucleated Red Blood Cells # 0.0 Sodium Level 146 H Potassium Level 3.1 L Chloride Level 107 Carbon Dioxide Level 32 H Anion Gap 10 Blood Urea Nitrogen 14 Creatinine 0.66 Glucose Level 117 Calcium Level 9.1 Phosphorus Level 2.3 L Magnesium Level 1.7 Total Bilirubin 4.1 H Direct Bilirubin 1.70 H Indirect Bilirubin 2.4 H Aspartate Amino Transf (AST/SGOT) 36 Alanine Aminotransferase (ALT/SGPT) 45 Alkaline Phosphatase 123 H Total Protein 7.3 Albumin 4.2 Globulin 3.10 Albumin/Globulin Ratio 1.35 Blood Gas Specimen Source Blood arterial Arterial Blood Date Drawn 01/13/2017 5:10:00 AM Arterial Blood pH (Temp corrected) 7.512 H Arterial Blood pCO2 (Temp correct) 38.0 Arterial Blood pO2 (Temp corrected) 82.4 Arterial Blood HCO3 29.8 H Arterial Blood Base Excess 6.4 H Arterial Blood Oxygen Saturation 96.7 [place] Test ACCEPTAB Arterial Blood Gas Puncture Site Right Radial Arterial Blood Carboxyhemoglobin 2.3 Arterial Blood Methemoglobin 0.8 Blood Gas A-a O2 Differential 86.9 H Oxyhemoglobin Percent 93.7 Total Hemoglobin 10.8 L Blood Gas Temperature 37.0 Blood Gas Respiration Rate 16.0 Blood Gas Actual Respiration Rate 18 Blood Gas Modality MASK - BIPAP FiO2 30.0 Blood Gas Pressure Support 10 Blood Gas IPAP/EPAP Ratio 15/5 Blood Gas Notified Whom MA Blood Gas Notified Time 01/13/2017 5:29:00 AM Medications Medications Current Medications Ondansetron HCl (Zofran Inj) 4 mg Q6H PRN IV NAUSEA AND/OR VOMITING Last administered on 01/05/17 02:20; Admin Dose 4 MG; Start 12/20/16 at 07:30 Acetaminophen (Tylenol Tab) 650 mg Q6H PRN PO PAIN LEVEL 1-3 OR FEVER Last administered on 01/11/17 19:27; Admin Dose 650 MG; Start 12/20/16 at 07:30 Morphine Sulfate (morphine) 4 mg Q4H PRN IV SEVERE PAIN LEVEL 7-10 Last administered on 01/12/17 11:23; Admin Dose 4 MG; Start 12/20/16 at 07:30 Amlodipine Besylate (Norvasc) 5 mg DAILY PO Last administered on 01/12/17 08:58 ; Admin Dose 5 MG; Start 12/21/16 at 09:00 Acetaminophen/ Hydrocodone Bitart ([place] (5/325)) 1 tab Q6H PRN PO PAIN LEVEL 7 -10 Last administered on 01/03/17 21:54; Admin Dose 1 TAB; Start 12/30/16 at 18 :00 Hydromorphone HCl (Dilaudid) 1 mg Q4H PRN IV SEVERE PAIN LEVEL 7-10 Last administered on 01/05/17 02:21; Admin Dose 1 MG; Start 01/02/17 at 17:45 Senna 1 tab 1 tab BID PO Last administered on 01/12/17 20:53; Admin Dose 1 TAB ; Start 01/03/17 at 21:00 Norepinephrine/ Dextrose (Levophed/D5W) 500 ml @ 1.87 mls/hr TITRATE IV Last administered on 01/05/17 09:13; Admin Dose 28.12 MLS/HR; Start 01/04/17 at 11: 00 Lorazepam (Ativan) 1 mg Q1H PRN IV Seizures Last administered on 01/12/17 14:31 ; Admin Dose 1 MG; Start 01/04/17 at 19:30 IV Flush (NS 10 ml) 10 ml PRN PRN IV FLUSH LINE; Start 01/04/17 at 20:00 Morphine Sulfate (morphine) 2 mg Q4H PRN IV pain Last administered on 01/12/17 09:08; Admin Dose 2 MG; Start 01/05/17 at 01:30 Pantoprazole (Protonix Iv) 40 mg DAILY@06 IV Last administered on 01/13/17 05: 47; Admin Dose 40 MG; Start 01/05/17 at 06:30 Lorazepam 1 mg 1 mg Q4H PRN IV agitation Last administered on 01/12/17 21:54; Admin Dose 1 MG; Start 01/05/17 at 07:00 Fentanyl (Sublimaze) 100 ml @ 2.5 mls/hr TITRATE IV Last administered on 15:27; Admin Dose 5 MLS/HR; Start 01/05/17 at 12:25 Hydralazine HCl 10 mg 10 mg Q2H PRN IV SBP >170 Last administered on 01/12/17 22:01; Admin Dose 10 MG; Start 01/06/17 at 03:00 Fluconazole/ Sodium Chloride 50 ml @ 50 mls/hr Q24H IVPB Last administered on 12:57; Admin Dose 50 MLS/HR; Start 01/07/17 at 12:00 Vancomycin HCl 750 mg/Sodium Chloride 150 ml @ 75 mls/hr Q12H IVPB Last administered on 01/13/17 11:44; Admin Dose 75 MLS/HR; Start 01/09/17 at 11:00 Piperacillin Sod/ Tazobactam Sod (Zosyn 3.375gm/ 100 ml (Pmx)) 100 ml @ 200 mls /hr Q6 IVPB Last administered on 01/13/17 12:57; Admin Dose 200 MLS/HR; Start 01/09/17 at 12:00 Docusate Sodium 100 mg 100 mg BID NGT Last administered on 01/12/17 20:53; Admin Dose 100 MG; Start 01/10/17 at 10:00 Potassium Chloride/Dextrose (KCl/D5W) 1,015 ml @ 70 mls/hr [id number] IV Last administered on 01/13/17 11:35; Admin Dose 70 MLS/HR; Start 01/11/17 at 07:00 Furosemide (Lasix) 20 mg Q8 IV Last administered on 01/13/17 13:00; Admin Dose 20 MG; Start 01/11/17 at 14:00 Methylprednisolone Sodium Succinate (Solu-Medrol) 40 mg DAILY IV Last administered on 01/13/17 09:58; Admin Dose 40 MG; Start 01/12/17 at 11:00 SHELLEY VALENCIA Jan 13, 2017 15:43
[2017-01-13] MEDS ORDERED: POTASSIUM PHOSPHATE 40 MEQ in SOD CHLORIDE 0.9% 250 ML IVPB ONE (16:00)
--- NOTE | 2017-01-13 16:22 | CONS ---
Date/Time of Note Date/Time of Note DATE: 01/13/17 TIME: 16:19 Assessment/Plan Assessment/Plan Chief Complaint/Hosp Course SUBJECTIVE: Awake, comfortable on BiPAP, no fevers, family at bedside. MICROBIOLOGY: Sputum cx + C alb. INDWELLINGS: Lau catheter, A-line, and PICC line. ANTIMICROBIALS: 1. Vancomycin. 2. Zosyn. 3. Diflucan PHYSICAL EXAMINATION: GENERAL: This is a well-developed, obese, middle-aged woman who is in no distress HEENT: Head atraumatic, normocephalic. Sclerae anicteric. NECK: Supple. CHEST: Rise symmetrical. Breath sounds diminished to bases. HEART: S1, S2. ABDOMEN: Soft. Bowel tones present. EXTREMITIES: With trace edema. ASSESSMENT: 1. S/P sepsis with shock, possibly also hypovolemic==> off pressors. 2. Acute respiratory failure, status post extubated 01/09/17. 3. Severe bilateral pneumonia. 4. Acute anemia, status post liver biopsy with massive subcapsular hepatic hematoma. 5. 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 6. Pelvic mass 7. Leukocytosis, likely steroid-induced PLAN: Remains hemodynamically stable, CT of the chest with persistent consolidation, continue abx, follow recommendations of consultants ==> pending final work up DW staff Problems: Consultation Date/Type/Reason Admit Date/Time Dec 19, 2016 at 21:34 Initial Consult Date 12/20/16 Type of Consultation: Infectious disease Referring Provider: KAHLIL MARTEL Exam/Review of Systems Vital Signs Vitals Vital Signs Date Time Temp Pulse Resp B/P Pulse Ox O2 Delivery O2 Flow Rate FiO2 01/13/17 15:00 79 30 01/13/17 10:25 96 01/13/17 06:00 37 160/85 01/13/17 04:00 99.0 01/11/17 23:45 5.0 01/11/17 18:00 BIPAP Intake and Output 01/12/17 01/12/17 01/13/17 15:00 23:00 07:00 Intake Total 740 ml 1419 ml 740 ml Output Total 2100 ml 2010 ml 1675 ml Balance -1360 ml -591 ml -935 ml Results Result Diagram: 01/13/17 0430 01/13/17 0430 Results 24 hrs Laboratory Tests Test 01/12/17 22:08 01/13/17 04:30 01/13/17 05:00 Vancomycin Level Trough 12.3 White Blood Count 14.6 #H Red Blood Count 3.38 L Hemoglobin 10.4 L Hematocrit 33.2 L Mean Corpuscular Volume 98.2 Mean Corpuscular Hemoglobin 30.8 Mean Corpuscular Hemoglobin Concent 31.3 L Red Cell Distribution Width 19.9 H Platelet Count 379 # Mean Platelet Volume 10.7 H Neutrophils % 85.2 H Lymphocytes % 5.9 L Monocytes % 7.9 Eosinophils % 0.0 Basophils % 0.1 Nucleated Red Blood Cells % 0.0 Neutrophils # 12.5 H Lymphocytes # 0.9 Monocytes # 1.2 H Eosinophils # 0.0 Basophils # 0.0 Nucleated Red Blood Cells # 0.0 Sodium Level 146 H Potassium Level 3.1 L Chloride Level 107 Carbon Dioxide Level 32 H Anion Gap 10 Blood Urea Nitrogen 14 Creatinine 0.66 Glucose Level 117 Calcium Level 9.1 Phosphorus Level 2.3 L Magnesium Level 1.7 Total Bilirubin 4.1 H Direct Bilirubin 1.70 H Indirect Bilirubin 2.4 H Aspartate Amino Transf (AST/SGOT) 36 Alanine Aminotransferase (ALT/SGPT) 45 Alkaline Phosphatase 123 H Total Protein 7.3 Albumin 4.2 Globulin 3.10 Albumin/Globulin Ratio 1.35 Blood Gas Specimen Source Blood arterial Arterial Blood Date Drawn 01/13/2017 5:10:00 AM Arterial Blood pH (Temp corrected) 7.512 H Arterial Blood pCO2 (Temp correct) 38.0 Arterial Blood pO2 (Temp corrected) 82.4 Arterial Blood HCO3 29.8 H Arterial Blood Base Excess 6.4 H Arterial Blood Oxygen Saturation 96.7 [place] Test ACCEPTAB Arterial Blood Gas Puncture Site Right Radial Arterial Blood Carboxyhemoglobin 2.3 Arterial Blood Methemoglobin 0.8 Blood Gas A-a O2 Differential 86.9 H Oxyhemoglobin Percent 93.7 Total Hemoglobin 10.8 L Blood Gas Temperature 37.0 Blood Gas Respiration Rate 16.0 Blood Gas Actual Respiration Rate 18 Blood Gas Modality MASK - BIPAP FiO2 30.0 Blood Gas Pressure Support 10 Blood Gas IPAP/EPAP Ratio 15/5 Blood Gas Notified Whom SD Blood Gas Notified Time 01/13/2017 5:29:00 AM Medications Medications Current Medications Ondansetron HCl (Zofran Inj) 4 mg Q6H PRN IV NAUSEA AND/OR VOMITING Last administered on 01/05/17 02:20; Admin Dose 4 MG; Start 12/20/16 at 07:30 Acetaminophen (Tylenol Tab) 650 mg Q6H PRN PO PAIN LEVEL 1-3 OR FEVER Last administered on 01/11/17 19:27; Admin Dose 650 MG; Start 12/20/16 at 07:30 Morphine Sulfate (morphine) 4 mg Q4H PRN IV SEVERE PAIN LEVEL 7-10 Last administered on 01/12/17 11:23; Admin Dose 4 MG; Start 12/20/16 at 07:30 Amlodipine Besylate (Norvasc) 5 mg DAILY PO Last administered on 01/12/17 08:58 ; Admin Dose 5 MG; Start 12/21/16 at 09:00 Acetaminophen/ Hydrocodone Bitart ([place] (5/325)) 1 tab Q6H PRN PO PAIN LEVEL 7 -10 Last administered on 01/03/17 21:54; Admin Dose 1 TAB; Start 12/30/16 at 18 :00 Hydromorphone HCl (Dilaudid) 1 mg Q4H PRN IV SEVERE PAIN LEVEL 7-10 Last administered on 01/05/17 02:21; Admin Dose 1 MG; Start 01/02/17 at 17:45 Senna 1 tab 1 tab BID PO Last administered on 01/12/17 20:53; Admin Dose 1 TAB ; Start 01/03/17 at 21:00 Norepinephrine/ Dextrose (Levophed/D5W) 500 ml @ 1.87 mls/hr TITRATE IV Last administered on 01/05/17 09:13; Admin Dose 28.12 MLS/HR; Start 01/04/17 at 11: 00 Lorazepam (Ativan) 1 mg Q1H PRN IV Seizures Last administered on 01/12/17 14:31 ; Admin Dose 1 MG; Start 01/04/17 at 19:30 IV Flush (NS 10 ml) 10 ml PRN PRN IV FLUSH LINE; Start 01/04/17 at 20:00 Morphine Sulfate (morphine) 2 mg Q4H PRN IV pain Last administered on 01/12/17 09:08; Admin Dose 2 MG; Start 01/05/17 at 01:30 Pantoprazole (Protonix Iv) 40 mg DAILY@06 IV Last administered on 01/13/17 05: 47; Admin Dose 40 MG; Start 01/05/17 at 06:30 Lorazepam 1 mg 1 mg Q4H PRN IV agitation Last administered on 01/12/17 21:54; Admin Dose 1 MG; Start 01/05/17 at 07:00 Fentanyl (Sublimaze) 100 ml @ 2.5 mls/hr TITRATE IV Last administered on 15:27; Admin Dose 5 MLS/HR; Start 01/05/17 at 12:25 Hydralazine HCl 10 mg 10 mg Q2H PRN IV SBP >170 Last administered on 01/12/17 22:01; Admin Dose 10 MG; Start 01/06/17 at 03:00 Fluconazole/ Sodium Chloride 50 ml @ 50 mls/hr Q24H IVPB Last administered on 12:57; Admin Dose 50 MLS/HR; Start 01/07/17 at 12:00 Vancomycin HCl 750 mg/Sodium Chloride 150 ml @ 75 mls/hr Q12H IVPB Last administered on 01/13/17 11:44; Admin Dose 75 MLS/HR; Start 01/09/17 at 11:00 Piperacillin Sod/ Tazobactam Sod (Zosyn 3.375gm/ 100 ml (Pmx)) 100 ml @ 200 mls /hr Q6 IVPB Last administered on 01/13/17 12:57; Admin Dose 200 MLS/HR; Start 01/09/17 at 12:00 Docusate Sodium 100 mg 100 mg BID NGT Last administered on 01/12/17 20:53; Admin Dose 100 MG; Start 01/10/17 at 10:00 Potassium Chloride/Dextrose (KCl/D5W) 1,015 ml @ 70 mls/hr [id number] IV Last administered on 01/13/17 11:35; Admin Dose 70 MLS/HR; Start 01/11/17 at 07:00 Furosemide (Lasix) 20 mg Q8 IV Last administered on 01/13/17 13:00; Admin Dose 20 MG; Start 01/11/17 at 14:00 Methylprednisolone Sodium Succinate 40 mg 40 mg DAILY IV Last administered on 7 /3/17at 09:58; Admin Dose 40 MG; Start 01/12/17 at 11:00 Potassium Phosphate/Sodium Chloride (K Phos (Meq)/NS) 259.0909 ml @ 64.773 m... ONCE ONCE IVPB ; Start 01/13/17 at 16:00; Stop 01/13/17 at 19:59 NANCY HULL NP Jan 13, 2017 16:22
[2017-01-13] MEDS: morphine 2 MG INJ IV PRN ×2 (16:45→23:27)
--- NOTE | 2017-01-13 21:06 | PN ---
Date/Time of Note Date/Time of Note DATE: 01/13/17 TIME: 20:57 Assessment/Plan VTE Prophylaxis VTE Prophylaxis Intervention: contraindicated VTE Contraindication Reason: bleeding Lines/Catheters IV Catheter Type (from Nrsg): PICC Line Central line still needed: Yes Urinary Cath still in place: Yes Reason Cath still needed: pres ulcer contaminated by urine Assessment/Plan Chief Complaint/Hosp Course Bx of hepatic lesions do not detect any malignancy. 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 Hepatic hemorrhage seems to have been controlled. No further bleeding. Coagulation parameters are nl. No evidence of DIC at this time or in past. Uterine lesion not likely to be related to the hepatic process, but further evaluation is needed. Cannot r/o the poss of a leiomyosarcoma. Problems: (1) Jaundice Status: Acute (2) Uterine mass Status: Acute (3) Hepatic vein thrombosis Status: Acute (4) Portal vein thrombosis Status: Acute (5) Anemia Status: Acute Qualifiers: Anemia type: other cause Other causes of anemia: other cause, not classified Qualified Code: D64.89 - Anemia due to other cause, not classified (6) Leukocytosis Status: Acute Qualifiers: Leukocytosis type: unspecified Qualified Code: D72.829 - Leukocytosis, unspecified type Assessment/Plan Pt Hgb is increasing. Pt does have indirect hyperbilirubinemia. Doubt hemolysis as Hgb is increasing. Will check haptoglobin and plasma Hgb in AM. Subjective 24 Hr Interval Summary Free Text/Dictation Pt unable to give any information at this time. Has BIPAP mask in place. Exam/Review of Systems Vital Signs Vitals Vital Signs Date Time Temp Pulse Resp B/P Pulse Ox O2 Delivery O2 Flow Rate FiO2 01/13/17 20:00 74 21 137/75 94 BIPAP 01/13/17 19:33 30 01/13/17 19:00 98.9 01/11/17 23:45 5.0 Intake and Output 01/12/17 01/12/17 01/13/17 15:00 23:00 07:00 Intake Total 740 ml 1419 ml 740 ml Output Total 2100 ml 2010 ml 1675 ml Balance -1360 ml -591 ml -935 ml Exam Constitutional: non-verbal Head: normocephalic Eyes: EOMI, PERRL, icteric, nl conjunctiva ENMT: mucosa pink and moist, other (BIPASP mask) Neck: non-tender, supple Respiratory: clear to auscultation, normal air movement Cardiovascular: nl pulses, regular rate and rhythm Gastrointestinal: nl liver, spleen, non-tender, other (obese), soft Musculoskeletal: nl extremities to inspection Extremities: normal pulses, other (PICC in LUE) Neurological: lethargic Skin: nl turgor Lymph: nl lymph nodes Results Result Diagram: 01/13/17 0430 01/13/17 0430 Results 24 hrs Laboratory Tests Test 01/12/17 22:08 01/13/17 04:30 01/13/17 05:00 Vancomycin Level Trough 12.3 White Blood Count 14.6 #H Red Blood Count 3.38 L Hemoglobin 10.4 L Hematocrit 33.2 L Mean Corpuscular Volume 98.2 Mean Corpuscular Hemoglobin 30.8 Mean Corpuscular Hemoglobin Concent 31.3 L Red Cell Distribution Width 19.9 H Platelet Count 379 # Mean Platelet Volume 10.7 H Neutrophils % 85.2 H Lymphocytes % 5.9 L Monocytes % 7.9 Eosinophils % 0.0 Basophils % 0.1 Nucleated Red Blood Cells % 0.0 Neutrophils # 12.5 H Lymphocytes # 0.9 Monocytes # 1.2 H Eosinophils # 0.0 Basophils # 0.0 Nucleated Red Blood Cells # 0.0 Sodium Level 146 H Potassium Level 3.1 L Chloride Level 107 Carbon Dioxide Level 32 H Anion Gap 10 Blood Urea Nitrogen 14 Creatinine 0.66 Glucose Level 117 Calcium Level 9.1 Phosphorus Level 2.3 L Magnesium Level 1.7 Total Bilirubin 4.1 H Direct Bilirubin 1.70 H Indirect Bilirubin 2.4 H Aspartate Amino Transf (AST/SGOT) 36 Alanine Aminotransferase (ALT/SGPT) 45 Alkaline Phosphatase 123 H Total Protein 7.3 Albumin 4.2 Globulin 3.10 Albumin/Globulin Ratio 1.35 Blood Gas Specimen Source Blood arterial Arterial Blood Date Drawn 01/13/2017 5:10:00 AM Arterial Blood pH (Temp corrected) 7.512 H Arterial Blood pCO2 (Temp correct) 38.0 Arterial Blood pO2 (Temp corrected) 82.4 Arterial Blood HCO3 29.8 H Arterial Blood Base Excess 6.4 H Arterial Blood Oxygen Saturation 96.7 [place] Test ACCEPTAB Arterial Blood Gas Puncture Site Right Radial Arterial Blood Carboxyhemoglobin 2.3 Arterial Blood Methemoglobin 0.8 Blood Gas A-a O2 Differential 86.9 H Oxyhemoglobin Percent 93.7 Total Hemoglobin 10.8 L Blood Gas Temperature 37.0 Blood Gas Respiration Rate 16.0 Blood Gas Actual Respiration Rate 18 Blood Gas Modality MASK - BIPAP FiO2 30.0 Blood Gas Pressure Support 10 Blood Gas IPAP/EPAP Ratio 15/5 Blood Gas Notified Whom MA Blood Gas Notified Time 01/13/2017 5:29:00 AM Medications Medications Current Medications Ondansetron HCl (Zofran Inj) 4 mg Q6H PRN IV NAUSEA AND/OR VOMITING Last administered on 01/05/17 02:20; Admin Dose 4 MG; Start 12/20/16 at 07:30 Acetaminophen (Tylenol Tab) 650 mg Q6H PRN PO PAIN LEVEL 1-3 OR FEVER Last administered on 01/11/17 19:27; Admin Dose 650 MG; Start 12/20/16 at 07:30 Morphine Sulfate (morphine) 4 mg Q4H PRN IV SEVERE PAIN LEVEL 7-10 Last administered on 01/12/17 11:23; Admin Dose 4 MG; Start 12/20/16 at 07:30 Amlodipine Besylate (Norvasc) 5 mg DAILY PO Last administered on 01/12/17 08:58 ; Admin Dose 5 MG; Start 12/21/16 at 09:00 Acetaminophen/ Hydrocodone Bitart ([place] (5/325)) 1 tab Q6H PRN PO PAIN LEVEL 7 -10 Last administered on 01/03/17 21:54; Admin Dose 1 TAB; Start 12/30/16 at 18 :00 Hydromorphone HCl (Dilaudid) 1 mg Q4H PRN IV SEVERE PAIN LEVEL 7-10 Last administered on 01/05/17 02:21; Admin Dose 1 MG; Start 01/02/17 at 17:45 Senna 1 tab 1 tab BID PO Last administered on 01/12/17 20:53; Admin Dose 1 TAB ; Start 01/03/17 at 21:00 Norepinephrine/ Dextrose (Levophed/D5W) 500 ml @ 1.87 mls/hr TITRATE IV Last administered on 01/05/17 09:13; Admin Dose 28.12 MLS/HR; Start 01/04/17 at 11: 00 Lorazepam (Ativan) 1 mg Q1H PRN IV Seizures Last administered on 01/12/17 14:31 ; Admin Dose 1 MG; Start 01/04/17 at 19:30 IV Flush (NS 10 ml) 10 ml PRN PRN IV FLUSH LINE; Start 01/04/17 at 20:00 Morphine Sulfate (morphine) 2 mg Q4H PRN IV pain Last administered on 01/13/17 16:45; Admin Dose 2 MG; Start 01/05/17 at 01:30 Pantoprazole (Protonix Iv) 40 mg DAILY@06 IV Last administered on 01/13/17 05: 47; Admin Dose 40 MG; Start 01/05/17 at 06:30 Lorazepam 1 mg 1 mg Q4H PRN IV agitation Last administered on 01/12/17 21:54; Admin Dose 1 MG; Start 01/05/17 at 07:00 Fentanyl (Sublimaze) 100 ml @ 2.5 mls/hr TITRATE IV Last administered on 15:27; Admin Dose 5 MLS/HR; Start 01/05/17 at 12:25 Hydralazine HCl 10 mg 10 mg Q2H PRN IV SBP >170 Last administered on 01/12/17 22:01; Admin Dose 10 MG; Start 01/06/17 at 03:00 Fluconazole/ Sodium Chloride 50 ml @ 50 mls/hr Q24H IVPB Last administered on 12:57; Admin Dose 50 MLS/HR; Start 01/07/17 at 12:00 Vancomycin HCl 750 mg/Sodium Chloride 150 ml @ 75 mls/hr Q12H IVPB Last administered on 01/13/17 11:44; Admin Dose 75 MLS/HR; Start 01/09/17 at 11:00 Piperacillin Sod/ Tazobactam Sod (Zosyn 3.375gm/ 100 ml (Pmx)) 100 ml @ 200 mls /hr Q6 IVPB Last administered on 01/13/17 18:54; Admin Dose 200 MLS/HR; Start 01/09/17 at 12:00 Docusate Sodium 100 mg 100 mg BID NGT Last administered on 01/12/17 20:53; Admin Dose 100 MG; Start 01/10/17 at 10:00 Potassium Chloride/Dextrose (KCl/D5W) 1,015 ml @ 70 mls/hr [id number] IV Last administered on 01/13/17 11:35; Admin Dose 70 MLS/HR; Start 01/11/17 at 07:00 Furosemide (Lasix) 20 mg Q8 IV Last administered on 01/13/17 13:00; Admin Dose 20 MG; Start 01/11/17 at 14:00 Methylprednisolone Sodium Succinate (Solu-Medrol) 40 mg DAILY IV Last administered on 01/13/17 09:58; Admin Dose 40 MG; Start 01/12/17 at 11:00 ECTOR GHOSH MD Jan 13, 2017 21:05
--- NOTE | 2017-01-13 23:58 | CONS ---
Date/Time of Note Date/Time of Note DATE: 01/13/17 TIME: 23:58 Assessment/Plan Assessment/Plan Chief Complaint/Hosp Course Assessment 1. Acute respiratory failure managed by pulmonary 2. Anemia acute CT scan Intraabdominal hemorrhage Very large mixed density acute subcapsular hematoma of the liver with moderate blood seen throughout the abdomen and pelvis. Right lower lobe atelectasis or infiltrate and small bilateral effusions. Horseshoe kidneys 3. Transaminitis 4. 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 COMMENT: This case has been reviewed by Dr. Carlos Garcia of [facility] who essentially concurs with our interpretation and he states that the histopathological features are suggestive of but not characteristic for inflammatory (myofibroblastic) pseudotumor, and due to difficulty in assessing IgG4/IgG ratio due to diffuse background staining a diagnosis of sclerosing cholangitis, which can be seen in IgG4-associated liver disease cannot be made at this time. Please see attached consultation report. 5. Portal vein thrombosis Reommendation: 1. monitor hemoglobin and hematocrit and transfuse 1 unit PRBC if HGB <7.5 ,2 units PRBC hemoglobin less than 7 2. liver biopsy is unrevealing. I would recommend Heme/Onc consult to determine next steps in w/u of his liver lesions if necessary. 3. trend liver enzymes, elevation of ast,alt could be attributed to subcapsular hematoma 4. continue NG feeding if possible 5. continue supportive care including abx Problems: Consultation Date/Type/Reason Admit Date/Time Dec 19, 2016 at 21:34 Initial Consult Date 12/26/16 Type of Consultation: GI Referring Provider: KAHLIL MARTEL 24 HR Interval Summary Free Text/Dictation Awake, comfortable on BiPAP, no fevers, family at bedside Exam/Review of Systems Vital Signs Vitals Vital Signs Date Time Temp Pulse Resp B/P Pulse Ox O2 Delivery O2 Flow Rate FiO2 01/13/17 23:22 74 96 30 01/13/17 23:00 25 129/73 01/13/17 20:00 BIPAP 01/13/17 19:00 98.9 01/11/17 23:45 5.0 Intake and Output 01/12/17 01/12/17 01/13/17 15:00 23:00 07:00 Intake Total 740 ml 1419 ml 740 ml Output Total 2100 ml 2010 ml 1675 ml Balance -1360 ml -591 ml -935 ml Exam Head: atraumatic, normocephalic ENMT: nl external ears & nose, nl lips & teeth, nl nasal mucosa & septum Neck: non-tender, supple Respiratory: clear to auscultation Cardiovascular: nl pulses, regular rate and rhythm Gastrointestinal: bowel sounds, non-tender, soft Results Result Diagram: 01/13/1742901/13/17 0430 Results 24 hrs Laboratory Tests Test 01/13/17 04:30 01/13/17 05:00 White Blood Count 14.6 #H Red Blood Count 3.38 L Hemoglobin 10.4 L Hematocrit 33.2 L Mean Corpuscular Volume 98.2 Mean Corpuscular Hemoglobin 30.8 Mean Corpuscular Hemoglobin Concent 31.3 L Red Cell Distribution Width 19.9 H Platelet Count 379 # Mean Platelet Volume 10.7 H Neutrophils % 85.2 H Lymphocytes % 5.9 L Monocytes % 7.9 Eosinophils % 0.0 Basophils % 0.1 Nucleated Red Blood Cells % 0.0 Neutrophils # 12.5 H Lymphocytes # 0.9 Monocytes # 1.2 H Eosinophils # 0.0 Basophils # 0.0 Nucleated Red Blood Cells # 0.0 Sodium Level 146 H Potassium Level 3.1 L Chloride Level 107 Carbon Dioxide Level 32 H Anion Gap 10 Blood Urea Nitrogen 14 Creatinine 0.66 Glucose Level 117 Calcium Level 9.1 Phosphorus Level 2.3 L Magnesium Level 1.7 Total Bilirubin 4.1 H Direct Bilirubin 1.70 H Indirect Bilirubin 2.4 H Aspartate Amino Transf (AST/SGOT) 36 Alanine Aminotransferase (ALT/SGPT) 45 Alkaline Phosphatase 123 H Total Protein 7.3 Albumin 4.2 Globulin 3.10 Albumin/Globulin Ratio 1.35 Blood Gas Specimen Source Blood arterial Arterial Blood Date Drawn 01/13/2017 5:10:00 AM Arterial Blood pH (Temp corrected) 7.512 H Arterial Blood pCO2 (Temp correct) 38.0 Arterial Blood pO2 (Temp corrected) 82.4 Arterial Blood HCO3 29.8 H Arterial Blood Base Excess 6.4 H Arterial Blood Oxygen Saturation 96.7 [place] Test ACCEPTAB Arterial Blood Gas Puncture Site Right Radial Arterial Blood Carboxyhemoglobin 2.3 Arterial Blood Methemoglobin 0.8 Blood Gas A-a O2 Differential 86.9 H Oxyhemoglobin Percent 93.7 Total Hemoglobin 10.8 L Blood Gas Temperature 37.0 Blood Gas Respiration Rate 16.0 Blood Gas Actual Respiration Rate 18 Blood Gas Modality MASK - BIPAP FiO2 30.0 Blood Gas Pressure Support 10 Blood Gas IPAP/EPAP Ratio 15/5 Blood Gas Notified Whom MA Blood Gas Notified Time 01/13/2017 5:29:00 AM Medications Medications Current Medications Ondansetron HCl (Zofran Inj) 4 mg Q6H PRN IV NAUSEA AND/OR VOMITING Last administered on 01/05/17 02:20; Admin Dose 4 MG; Start 12/20/16 at 07:30 Acetaminophen (Tylenol Tab) 650 mg Q6H PRN PO PAIN LEVEL 1-3 OR FEVER Last administered on 01/11/17 19:27; Admin Dose 650 MG; Start 12/20/16 at 07:30 Morphine Sulfate (morphine) 4 mg Q4H PRN IV SEVERE PAIN LEVEL 7-10 Last administered on 01/12/17 11:23; Admin Dose 4 MG; Start 12/20/16 at 07:30 Amlodipine Besylate (Norvasc) 5 mg DAILY PO Last administered on 01/12/17 08:58 ; Admin Dose 5 MG; Start 12/21/16 at 09:00 Acetaminophen/ Hydrocodone Bitart ([place] (5/325)) 1 tab Q6H PRN PO PAIN LEVEL 7 -10 Last administered on 01/03/17 21:54; Admin Dose 1 TAB; Start 12/30/16 at 18 :00 Hydromorphone HCl (Dilaudid) 1 mg Q4H PRN IV SEVERE PAIN LEVEL 7-10 Last administered on 01/05/17 02:21; Admin Dose 1 MG; Start 01/02/17 at 17:45 Senna 1 tab 1 tab BID PO Last administered on 01/13/17 22:15; Admin Dose 1 TAB ; Start 01/03/17 at 21:00 Norepinephrine/ Dextrose (Levophed/D5W) 500 ml @ 1.87 mls/hr TITRATE IV Last administered on 01/05/17 09:13; Admin Dose 28.12 MLS/HR; Start 01/04/17 at 11: 00 Lorazepam (Ativan) 1 mg Q1H PRN IV Seizures Last administered on 01/12/17 14:31 ; Admin Dose 1 MG; Start 01/04/17 at 19:30 IV Flush (NS 10 ml) 10 ml PRN PRN IV FLUSH LINE; Start 01/04/17 at 20:00 Morphine Sulfate (morphine) 2 mg Q4H PRN IV pain Last administered on 01/13/17 23:27; Admin Dose 2 MG; Start 01/05/17 at 01:30 Pantoprazole (Protonix Iv) 40 mg DAILY@06 IV Last administered on 01/13/17 05: 47; Admin Dose 40 MG; Start 01/05/17 at 06:30 Lorazepam 1 mg 1 mg Q4H PRN IV agitation Last administered on 01/12/17 21:54; Admin Dose 1 MG; Start 01/05/17 at 07:00 Fentanyl (Sublimaze) 100 ml @ 2.5 mls/hr TITRATE IV Last administered on 15:27; Admin Dose 5 MLS/HR; Start 01/05/17 at 12:25 Hydralazine HCl 10 mg 10 mg Q2H PRN IV SBP >170 Last administered on 01/12/17 22:01; Admin Dose 10 MG; Start 01/06/17 at 03:00 Fluconazole/ Sodium Chloride 50 ml @ 50 mls/hr Q24H IVPB Last administered on 12:57; Admin Dose 50 MLS/HR; Start 01/07/17 at 12:00 Vancomycin HCl 750 mg/Sodium Chloride 150 ml @ 75 mls/hr Q12H IVPB Last administered on 01/13/17 22:15; Admin Dose 75 MLS/HR; Start 01/09/17 at 11:00 Piperacillin Sod/ Tazobactam Sod (Zosyn 3.375gm/ 100 ml (Pmx)) 100 ml @ 200 mls /hr Q6 IVPB Last administered on 01/13/17 23:27; Admin Dose 200 MLS/HR; Start 01/09/17 at 12:00 Docusate Sodium 100 mg 100 mg BID NGT Last administered on 01/13/17 22:15; Admin Dose 100 MG; Start 01/10/17 at 10:00 Potassium Chloride/Dextrose (KCl/D5W) 1,015 ml @ 70 mls/hr [id number] IV Last administered on 01/13/17 11:35; Admin Dose 70 MLS/HR; Start 01/11/17 at 07:00 Furosemide (Lasix) 20 mg Q8 IV Last administered on 01/13/17 22:15; Admin Dose 20 MG; Start 01/11/17 at 14:00 Methylprednisolone Sodium Succinate (Solu-Medrol) 40 mg DAILY IV Last administered on 01/13/17 09:58; Admin Dose 40 MG; Start 01/12/17 at 11:00 JANKI RAUSCH MD Jan 13, 2017 23:58
[2017-01-14] VITALS (34 sets, daily range): BP systolic 117–167; BP diastolic 67–89; PULSE 64–106; RESP 15–27
[2017-01-14] MEDS: POTASSIUM CHLORIDE 30 MEQ in DEXTROSE 5% 1,000 ML IV SCH ×3 (01:53→23:52)
[2017-01-14] MEDS: FUROSEMIDE 20 MG INJ IV SCH ×3 (05:04→21:25)
[2017-01-14] MEDS: PANTOPRAZOLE 40 MG INJ IV SCH (05:04)
[2017-01-14] MEDS: PIPER-TAZO 3.375 GM IV (PMX) 100 ML IVPB SCH ×3 (05:05→18:49)
[2017-01-14 05:41] LABS: ADD SCAN DIFF NO
[2017-01-14 05:53] LABS: BASOPHILS % 0.1 % (0.0-2.0); HEMATOCRIT 33.7 % (37.0-47.0); HEMOGLOBIN 10.7 g/dl (12.0-16.0); LYMPHOCYTES # 0.6 10^3/ul (0.8-2.9); LYMPHOCYTES % 4.1 % (15.0-51.0); MEAN CORPUSCULAR HEMOGLOBIN 31.4 pg (29.0-33.0); MEAN CORPUSCULAR HGB CONC 31.8 g/dl (32.0-37.0); MEAN CORPUSCULAR VOLUME 98.8 fl (82.0-101.0); NEUTROPHILS % 88.1 % (39.0-77.0); PLATELET COUNT 427 10^3/UL (140-415); RED BLOOD COUNT 3.41 10^6/ul (4.20-5.40); RED CELL DISTRIBUTION WIDTH 19.7 % (11.5-14.5); WHITE BLOOD COUNT 14.8 10^3/ul (4.8-10.8)
[2017-01-14 06:23] LABS: MAGNESIUM 1.6 mg/dl (1.7-2.5); PHOSPHORUS 3.5 mg/dl (2.5-4.9)
[2017-01-14 06:38] LABS: ALBUMIN 3.8 g/dl (3.3-4.9); ALBUMIN/GLOBULIN RATIO 1.26; BILIRUBIN,DIRECT 2.3 mg/dl (0.00-0.20); BILIRUBIN,INDIRECT 2.3 mg/dl (0-1.1); BILIRUBIN,TOTAL 4.6 mg/dl (0.2-1.3); CALCIUM 9.6 mg/dl (8.4-10.2); CREATININE 0.66 mg/dl (0.44-1.00); POTASSIUM 3.9 mmol/L (3.5-5.1); TOTAL PROTEIN 6.8 g/dl (6.1-8.1)
[2017-01-14] MEDS ORDERED: MAGNESIUM SULFATE 2 GM/50 ML 50 ML IVPB ONE (07:30)
--- NOTE | 2017-01-14 07:53 | PN ---
Date/Time of Note Date/Time of Note DATE: 01/14/17 TIME: 07:52 Assessment/Plan Lines/Catheters IV C[facility]ter Type (from [facility]): P[facility] Line Urinary Cath still in place: Yes Assessment/Plan Chief Complaint/Hosp Course 1. Nonoliguric acute kidney injury with previously normal baseline creatinine. Etiology secondary to acute tubular necrosis due to severe anemia, ischemic hypoperfusion, shock. - Patient's renal function has stabilized, - continue current treatment plan, supportive care, renally dose all medications. 2. s/p intra-abdominal bleed. -Hemoglobin levels have been stable. Continue to monitor 3. Volume overload. Improving continue t diuretic therapy as needed. 4. Hypernatremia. Continue- D5W -Monitor serial sodium levels 3. Mineral bone disease. Will continue to monitor calcium, phosphorus levels. Replace phosphorus 4. hypokalemia/hypomagnesemia. Monitor and replace as needed 5. Sepsis. status post shock, currently off pressor support. Continue current antibiotic regimen. 6. Hypoxemic respiratory failure. Patient BIPAP. Continue to monitor. Follow -up with pulmonary. CT angiogram showed no evidence of PE 7. Portal vein thrombosis. 8. Multiple liver lesions status post biopsy. Findings consistent with possible lymphoplasmacytic involvement will continue to monitor. Follow up with hematology. 9. Uterine mass. Followup with Gynecology/Oncology. Status post code arrest. Please note I spent over 45 minutes of critical care time with this patient. Problems: Subjective 24 Hr Interval Summary Free Text/Dictation Patient critically ill but stable. Remains on BiPAP. No other events noted overnight Exam/Review of Systems Vital Signs Vitals Vital Signs Date Time Temp Pulse Resp B/P Pulse Ox O2 Delivery O2 Flow Rate FiO2 01/14/17 06:00 72 25 142/72 98 01/14/17 05:24 30 01/14/17 04:00 98.8 01/13/17 20:00 BIPAP 01/11/17 23:45 5.0 Intake and Output 01/13/17 01/13/17 01/14/17 15:00 23:00 07:00 Intake Total 310 ml 260 ml Output Total 1630 ml 1320 ml 1450 ml Balance -1320 ml -1060 ml -1450 ml Exam HEENT: Head is normocephalic. Pupils are reactive to light. NECK: Supple. HEART: Regular rate. LUNGS: Show diminished breath sounds at base. ABDOMEN: Soft, nontender to palpation. No rebound or guarding. EXTREMITIES: Negative for clubbing, cyanosis, no edema. DERMATOLOGIC: No rashes. MUSCULOSKELETAL: No joint effusions. NEUROLOGIC: No change in exam. Results Result Diagram: 01/14/17 0500 01/14/17 0500 Results 24 hrs Laboratory Tests Test 01/14/17 05:00 01/14/17 05:15 White Blood Count 14.8 H Red Blood Count 3.41 L Hemoglobin 10.7 L Hematocrit 33.7 L Mean Corpuscular Volume 98.8 Mean Corpuscular Hemoglobin 31.4 Mean Corpuscular Hemoglobin Concent 31.8 L Red Cell Distribution Width 19.7 H Platelet Count 427 H Mean Platelet Volume 11.0 H Neutrophils % 88.1 H Lymphocytes % 4.1 L Monocytes % 7.0 Eosinophils % 0.0 Basophils % 0.1 Nucleated Red Blood Cells % 0.0 Neutrophils # 13.0 H Lymphocytes # 0.6 L Monocytes # 1.0 H Eosinophils # 0.0 Basophils # 0.0 Nucleated Red Blood Cells # 0.0 Sodium Level 148 H Potassium Level 3.9 Chloride Level 104 Carbon Dioxide Level 29 Anion Gap 19 #H Blood Urea Nitrogen 22 H Creatinine 0.66 Glucose Level 102 Calcium Level 9.6 Total Bilirubin 4.6 H Direct Bilirubin 2.30 #H Indirect Bilirubin 2.3 H Aspartate Amino Transf (AST/SGOT) 41 Alanine Aminotransferase (ALT/SGPT) 40 Alkaline Phosphatase 119 Total Protein 6.8 Albumin 3.8 Globulin 3.00 Albumin/Globulin Ratio 1.26 Phosphorus Level 3.5 Magnesium Level 1.6 L Medications Medications Current Medications Ondansetron HCl (Zofran Inj) 4 mg Q6H PRN IV NAUSEA AND/OR VOMITING Last administered on 01/05/17 02:20; Admin Dose 4 MG; Start 12/20/16 at 07:30 Acetaminophen (Tylenol Tab) 650 mg Q6H PRN PO PAIN LEVEL 1-3 OR FEVER Last administered on 01/11/17 19:27; Admin Dose 650 MG; Start 12/20/16 at 07:30 Morphine Sulfate (morphine) 4 mg Q4H PRN IV SEVERE PAIN LEVEL 7-10 Last administered on 01/12/17 11:23; Admin Dose 4 MG; Start 12/20/16 at 07:30 Amlodipine Besylate (Norvasc) 5 mg DAILY PO Last administered on 01/12/17 08:58 ; Admin Dose 5 MG; Start 12/21/16 at 09:00 Acetaminophen/ Hydrocodone Bitart ([place] (5/325)) 1 tab Q6H PRN PO PAIN LEVEL 7 -10 Last administered on 01/03/17 21:54; Admin Dose 1 TAB; Start 12/30/16 at 18 :00 Hydromorphone HCl (Dilaudid) 1 mg Q4H PRN IV SEVERE PAIN LEVEL 7-10 Last administered on 01/05/17 02:21; Admin Dose 1 MG; Start 01/02/17 at 17:45 Senna 1 tab 1 tab BID PO Last administered on 01/13/17 22:15; Admin Dose 1 TAB ; Start 01/03/17 at 21:00 Norepinephrine/ Dextrose (Levophed/D5W) 500 ml @ 1.87 mls/hr TITRATE IV Last administered on 01/05/17 09:13; Admin Dose 28.12 MLS/HR; Start 01/04/17 at 11: 00 Lorazepam (Ativan) 1 mg Q1H PRN IV Seizures Last administered on 01/12/17 14:31 ; Admin Dose 1 MG; Start 01/04/17 at 19:30 IV Flush (NS 10 ml) 10 ml PRN PRN IV FLUSH LINE; Start 01/04/17 at 20:00 Morphine Sulfate (morphine) 2 mg Q4H PRN IV pain Last administered on 01/13/17 23:27; Admin Dose 2 MG; Start 01/05/17 at 01:30 Pantoprazole (Protonix Iv) 40 mg DAILY@06 IV Last administered on 01/14/17 05: 04; Admin Dose 40 MG; Start 01/05/17 at 06:30 Lorazepam 1 mg 1 mg Q4H PRN IV agitation Last administered on 01/12/17 21:54; Admin Dose 1 MG; Start 01/05/17 at 07:00 Fentanyl (Sublimaze) 100 ml @ 2.5 mls/hr TITRATE IV Last administered on 15:27; Admin Dose 5 MLS/HR; Start 01/05/17 at 12:25 Hydralazine HCl 10 mg 10 mg Q2H PRN IV SBP >170 Last administered on 01/12/17 22:01; Admin Dose 10 MG; Start 01/06/17 at 03:00 Fluconazole/ Sodium Chloride 50 ml @ 50 mls/hr Q24H IVPB Last administered on 12:57; Admin Dose 50 MLS/HR; Start 01/07/17 at 12:00 Vancomycin HCl 750 mg/Sodium Chloride 150 ml @ 75 mls/hr Q12H IVPB Last administered on 01/13/17 22:15; Admin Dose 75 MLS/HR; Start 01/09/17 at 11:00 Piperacillin Sod/ Tazobactam Sod (Zosyn 3.375gm/ 100 ml (Pmx)) 100 ml @ 200 mls /hr Q6 IVPB Last administered on 01/14/17 05:05; Admin Dose 200 MLS/HR; Start 01/09/17 at 12:00 Docusate Sodium 100 mg 100 mg BID NGT Last administered on 01/13/17 22:15; Admin Dose 100 MG; Start 01/10/17 at 10:00 Potassium Chloride/Dextrose (KCl/D5W) 1,015 ml @ 100 mls/hr Q10H9M IV Last administered on 01/13/17 11:35; Admin Dose 70 MLS/HR; Start 01/11/17 at 07:00 Furosemide (Lasix) 20 mg Q8 IV Last administered on 01/14/17 05:04; Admin Dose 20 MG; Start 01/11/17 at 14:00 Methylprednisolone Sodium Succinate 40 mg 40 mg DAILY IV Last administered on 09:58; Admin Dose 40 MG; Start 01/12/17 at 11:00 Magnesium Sulfate (Magnesium Sulfate 2 Gm/50 ml) 50 ml @ 25 mls/hr ONCE ONCE IVPB ; Start 01/14/17 at 07:30; Stop 01/14/17 at 09:29 MILLY DAIGLE DO Jan 14, 2017 07:53
--- NOTE | 2017-01-14 09:44 | RADRPT ---
PROCEDURE: XR Chest. CLINICAL INDICATION: Shortness of breath TECHNIQUE: Single frontal view of the chest was obtained COMPARISON: Chest x-ray of 01/12/2017 and CTA chest of 01/11/2017 FINDINGS: There is hypoinflation of the lungs and bibasilar atelectasis/consolidation with likely small bilate ral pleural effusions. ECG leads projected over the chest. Left PICC line tip near atriocaval junc tion. IMPRESSION: Hypoinflation of the lungs and bibasilar atelectasis/consolidation with likely small bilateral pleur al effusions. Examination is not significantly changed compared to previous chest x-ray of 7. RPTAT: HJES .Armando Summers MD, MD Date Time Electronically viewed and signed by .Armando Summers MD, MD on 01/14/2017 09:44 .S/
[2017-01-14] MEDS: METHYLPREDNISOLONE 40 MG INJ IV SCH (09:56)
[2017-01-14] MEDS: DOCUSATE SODIUM 10 MG/ML (10ML CUP) NGT SCH ×2 (09:56→21:24)
[2017-01-14] MEDS: SENNA TAB PO SCH ×2 (09:56→21:24)
[2017-01-14] MEDS: AMLODIPINE 5 MG TAB PO SCH (09:56)
--- NOTE | 2017-01-14 10:18 | CONS ---
Date/Time of Note Date/Time of Note DATE: 01/14/17 TIME: 10:16 Consult Date/Type/Reason Admit Date/Time Dec 19, 2016 at 21:34 Initial Consult Date 12/20/16 Type of Consultation: Pulmonary ICU Ordering Provider: KAHLIL MARTEL Subjective Patient appears more comfortable this morning opens eyes tolerated some time off BiPAP. Family present at bedside. Objective Vital Signs Date Time Temp Pulse Resp B/P Pulse Ox O2 Delivery O2 Flow Rate FiO2 01/14/17 08:00 73 01/14/17 06:00 25 142/72 98 01/14/17 05:24 30 01/14/17 04:00 98.8 01/13/17 20:00 BIPAP 01/11/17 23:45 5.0 Intake and Output 01/13/17 01/13/17 01/14/17 15:00 23:00 07:00 Intake Total 310 ml 260 ml Output Total 1630 ml 1320 ml 1450 ml Balance -1320 ml -1060 ml -1450 ml Exam Events GENERAL: Well-nourished well-developed lady comfortable currently on BiPAP. VITAL SIGNS: per chart NECK: Supple. No JVD or lymphadenopathy. CARDIAC EXAM: S1, S2. No added sounds or murmurs. CHEST: clear bilaterally, No added sounds, rales or wheezes ABDOMEN: Soft, nontender. No guarding or rebound. Mild distention EXTREMITIES: No cyanosis, clubbing or edema. NEUROLOGIC: Generalized weakness. No focal deficits. Results/Medications Result Diagram: 01/14/17 0500 01/14/17 0500 Results 24 hrs Laboratory Tests Test 01/14/17 05:00 01/14/17 05:15 White Blood Count 14.8 H Red Blood Count 3.41 L Hemoglobin 10.7 L Hematocrit 33.7 L Mean Corpuscular Volume 98.8 Mean Corpuscular Hemoglobin 31.4 Mean Corpuscular Hemoglobin Concent 31.8 L Red Cell Distribution Width 19.7 H Platelet Count 427 H Mean Platelet Volume 11.0 H Neutrophils % 88.1 H Lymphocytes % 4.1 L Monocytes % 7.0 Eosinophils % 0.0 Basophils % 0.1 Nucleated Red Blood Cells % 0.0 Neutrophils # 13.0 H Lymphocytes # 0.6 L Monocytes # 1.0 H Eosinophils # 0.0 Basophils # 0.0 Nucleated Red Blood Cells # 0.0 Sodium Level 148 H Potassium Level 3.9 Chloride Level 104 Carbon Dioxide Level 29 Anion Gap 19 #H Blood Urea Nitrogen 22 H Creatinine 0.66 Glucose Level 102 Calcium Level 9.6 Total Bilirubin 4.6 H Direct Bilirubin 2.30 #H Indirect Bilirubin 2.3 H Aspartate Amino Transf (AST/SGOT) 41 Alanine Aminotransferase (ALT/SGPT) 40 Alkaline Phosphatase 119 Total Protein 6.8 Albumin 3.8 Globulin 3.00 Albumin/Globulin Ratio 1.26 Phosphorus Level 3.5 Magnesium Level 1.6 L Medications Current Medications Ondansetron HCl (Zofran Inj) 4 mg Q6H PRN IV NAUSEA AND/OR VOMITING Last administered on 01/05/17 02:20; Admin Dose 4 MG; Start 12/20/16 at 07:30 Acetaminophen (Tylenol Tab) 650 mg Q6H PRN PO PAIN LEVEL 1-3 OR FEVER Last administered on 01/11/17 19:27; Admin Dose 650 MG; Start 12/20/16 at 07:30 Morphine Sulfate (morphine) 4 mg Q4H PRN IV SEVERE PAIN LEVEL 7-10 Last administered on 01/12/17 11:23; Admin Dose 4 MG; Start 12/20/16 at 07:30 Amlodipine Besylate (Norvasc) 5 mg DAILY PO Last administered on 01/14/17 09:56 ; Admin Dose 5 MG; Start 12/21/16 at 09:00 Acetaminophen/ Hydrocodone Bitart ([place] (5/325)) 1 tab Q6H PRN PO PAIN LEVEL 7 -10 Last administered on 01/03/17 21:54; Admin Dose 1 TAB; Start 12/30/16 at 18 :00 Hydromorphone HCl (Dilaudid) 1 mg Q4H PRN IV SEVERE PAIN LEVEL 7-10 Last administered on 01/05/17 02:21; Admin Dose 1 MG; Start 01/02/17 at 17:45 Senna 1 tab 1 tab BID PO Last administered on 01/14/17 09:56; Admin Dose 1 TAB ; Start 01/03/17 at 21:00 Norepinephrine/ Dextrose (Levophed/D5W) 500 ml @ 1.87 mls/hr TITRATE IV Last administered on 01/05/17 09:13; Admin Dose 28.12 MLS/HR; Start 01/04/17 at 11: 00 Lorazepam (Ativan) 1 mg Q1H PRN IV Seizures Last administered on 01/12/17 14:31 ; Admin Dose 1 MG; Start 01/04/17 at 19:30 IV Flush (NS 10 ml) 10 ml PRN PRN IV FLUSH LINE; Start 01/04/17 at 20:00 Morphine Sulfate (morphine) 2 mg Q4H PRN IV pain Last administered on 01/13/17 23:27; Admin Dose 2 MG; Start 01/05/17 at 01:30 Pantoprazole (Protonix Iv) 40 mg DAILY@06 IV Last administered on 01/14/17 05: 04; Admin Dose 40 MG; Start 01/05/17 at 06:30 Lorazepam 1 mg 1 mg Q4H PRN IV agitation Last administered on 01/12/17 21:54; Admin Dose 1 MG; Start 01/05/17 at 07:00 Fentanyl (Sublimaze) 100 ml @ 2.5 mls/hr TITRATE IV Last administered on 15:27; Admin Dose 5 MLS/HR; Start 01/05/17 at 12:25 Hydralazine HCl 10 mg 10 mg Q2H PRN IV SBP >170 Last administered on 01/12/17 22:01; Admin Dose 10 MG; Start 01/06/17 at 03:00 Fluconazole/ Sodium Chloride 50 ml @ 50 mls/hr Q24H IVPB Last administered on 12:57; Admin Dose 50 MLS/HR; Start 01/07/17 at 12:00 Vancomycin HCl 750 mg/Sodium Chloride 150 ml @ 75 mls/hr Q12H IVPB Last administered on 01/13/17 22:15; Admin Dose 75 MLS/HR; Start 01/09/17 at 11:00 Piperacillin Sod/ Tazobactam Sod (Zosyn 3.375gm/ 100 ml (Pmx)) 100 ml @ 200 mls /hr Q6 IVPB Last administered on 01/14/17 05:05; Admin Dose 200 MLS/HR; Start 01/09/17 at 12:00 Docusate Sodium 100 mg 100 mg BID NGT Last administered on 01/14/17 09:56; Admin Dose 100 MG; Start 01/10/17 at 10:00 Potassium Chloride/Dextrose (KCl/D5W) 1,015 ml @ 100 mls/hr Q10H9M IV Last administered on 01/13/17 11:35; Admin Dose 70 MLS/HR; Start 01/11/17 at 07:00 Furosemide (Lasix) 20 mg Q8 IV Last administered on 01/14/17 05:04; Admin Dose 20 MG; Start 01/11/17 at 14:00 Methylprednisolone Sodium Succinate (Solu-Medrol) 40 mg DAILY IV Last administered on 01/14/17 09:56; Admin Dose 40 MG; Start 01/12/17 at 11:00 Assessment/Plan Chief Complaint/Hosp Course IMP: 1. Status post septic Shock 2. Respiratory Failure secondary to hypoventilation from abdominal distention. Low lung volumes resulting in hypercapnia. 3. Encephalopathy 4. s/p GRICELDA 5. 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 Volume overload RECS: 1. Continue BiPAP 2. Diuresis to continue 3. Continue corticosteroids for possible IgG4-related disease 4. Replete K+; follow K+ and Mg 5. Encourage out of bed. 35 min cc time Problems: JASON ROUSE MD, FCCP Jan 14, 2017 10:17
--- NOTE | 2017-01-14 10:34 | CONS ---
Date/Time of Note Date/Time of Note DATE: 01/14/17 TIME: 10:20 Assessment/Plan Assessment/Plan Chief Complaint/Hosp Course No acute changes overnight. Patient is alert, on BiPAP, complaining of abdominal pain. Vital signs temperature 98.8, pulse 73, respirations 25, blood pressure 142/72, saturation 98% on BiPAP. Laboratory data WBC 14.8, H&H 10.7 and 33.7, platelets 427, neutrophils 88.1 BUN 22, creatinine 0.66 Physical examination: Obese, well-developed middle-aged woman who is alert in no distress. Head atraumatic normocephalic, sclera nonicteric. Neck is obese, trachea midline. Chest rise symmetrical breath sounds diminished basis. Abdomen obese, soft bowel tones present. Extremities with trace edema Microbiology: Sputum culture on January 05 grew Bita albicans diagnostics chest x-ray this morning revealed basilar atelectasis and, consolidation with small bilateral pleural effusion not significantly changed compared to prior previous x-ray INDWELLINGS: Lau catheter, A-line, and PICC line. ANTIMICROBIALS: 1. Vancomycin. 2. Zosyn. 3. Diflucan ASSESSMENT: 1. S/P sepsis with shock, possibly also hypovolemic==> off pressors. 2. Acute respiratory failure, status post extubated 01/09/17. 3. Severe bilateral pneumonia. 4. Acute anemia, status post liver biopsy with massive subcapsular hepatic hematoma. 5. 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 6. Pelvic mass 7. Leukocytosis, likely steroid-induced PLAN: Remains hemodynamically stable, CT of the chest with persistent consolidation, continue abx, follow recommendations of consultants DW staff Problems: Consultation Date/Type/Reason Admit Date/Time Dec 19, 2016 at 21:34 Initial Consult Date 12/20/16 Type of Consultation: Infectious disease Referring Provider: KAHLIL MARTEL Exam/Review of Systems Vital Signs Vitals Vital Signs Date Time Temp Pulse Resp B/P Pulse Ox O2 Delivery O2 Flow Rate FiO2 01/14/17 08:00 73 01/14/17 06:00 25 142/72 98 01/14/17 05:24 30 01/14/17 04:00 98.8 01/13/17 20:00 BIPAP 01/11/17 23:45 5.0 Intake and Output 01/13/17 01/13/17 01/14/17 15:00 23:00 07:00 Intake Total 310 ml 260 ml Output Total 1630 ml 1320 ml 1450 ml Balance -1320 ml -1060 ml -1450 ml Results Result Diagram: 01/14/17 0500 01/14/17 0500 Results 24 hrs Laboratory Tests Test 01/14/17 05:00 01/14/17 05:15 White Blood Count 14.8 H Red Blood Count 3.41 L Hemoglobin 10.7 L Hematocrit 33.7 L Mean Corpuscular Volume 98.8 Mean Corpuscular Hemoglobin 31.4 Mean Corpuscular Hemoglobin Concent 31.8 L Red Cell Distribution Width 19.7 H Platelet Count 427 H Mean Platelet Volume 11.0 H Neutrophils % 88.1 H Lymphocytes % 4.1 L Monocytes % 7.0 Eosinophils % 0.0 Basophils % 0.1 Nucleated Red Blood Cells % 0.0 Neutrophils # 13.0 H Lymphocytes # 0.6 L Monocytes # 1.0 H Eosinophils # 0.0 Basophils # 0.0 Nucleated Red Blood Cells # 0.0 Sodium Level 148 H Potassium Level 3.9 Chloride Level 104 Carbon Dioxide Level 29 Anion Gap 19 #H Blood Urea Nitrogen 22 H Creatinine 0.66 Glucose Level 102 Calcium Level 9.6 Total Bilirubin 4.6 H Direct Bilirubin 2.30 #H Indirect Bilirubin 2.3 H Aspartate Amino Transf (AST/SGOT) 41 Alanine Aminotransferase (ALT/SGPT) 40 Alkaline Phosphatase 119 Total Protein 6.8 Albumin 3.8 Globulin 3.00 Albumin/Globulin Ratio 1.26 Phosphorus Level 3.5 Magnesium Level 1.6 L Medications Medications Current Medications Ondansetron HCl (Zofran Inj) 4 mg Q6H PRN IV NAUSEA AND/OR VOMITING Last administered on 01/05/17 02:20; Admin Dose 4 MG; Start 12/20/16 at 07:30 Acetaminophen (Tylenol Tab) 650 mg Q6H PRN PO PAIN LEVEL 1-3 OR FEVER Last administered on 01/11/17 19:27; Admin Dose 650 MG; Start 12/20/16 at 07:30 Morphine Sulfate (morphine) 4 mg Q4H PRN IV SEVERE PAIN LEVEL 7-10 Last administered on 01/12/17 11:23; Admin Dose 4 MG; Start 12/20/16 at 07:30 Amlodipine Besylate (Norvasc) 5 mg DAILY PO Last administered on 01/14/17 09:56 ; Admin Dose 5 MG; Start 12/21/16 at 09:00 Acetaminophen/ Hydrocodone Bitart ([place] (5/325)) 1 tab Q6H PRN PO PAIN LEVEL 7 -10 Last administered on 01/03/17 21:54; Admin Dose 1 TAB; Start 12/30/16 at 18 :00 Hydromorphone HCl (Dilaudid) 1 mg Q4H PRN IV SEVERE PAIN LEVEL 7-10 Last administered on 01/05/17 02:21; Admin Dose 1 MG; Start 01/02/17 at 17:45 Senna 1 tab 1 tab BID PO Last administered on 01/14/17 09:56; Admin Dose 1 TAB ; Start 01/03/17 at 21:00 Norepinephrine/ Dextrose (Levophed/D5W) 500 ml @ 1.87 mls/hr TITRATE IV Last administered on 01/05/17 09:13; Admin Dose 28.12 MLS/HR; Start 01/04/17 at 11: 00 Lorazepam (Ativan) 1 mg Q1H PRN IV Seizures Last administered on 01/12/17 14:31 ; Admin Dose 1 MG; Start 01/04/17 at 19:30 IV Flush (NS 10 ml) 10 ml PRN PRN IV FLUSH LINE; Start 01/04/17 at 20:00 Morphine Sulfate (morphine) 2 mg Q4H PRN IV pain Last administered on 01/13/17 23:27; Admin Dose 2 MG; Start 01/05/17 at 01:30 Pantoprazole (Protonix Iv) 40 mg DAILY@06 IV Last administered on 01/14/17 05: 04; Admin Dose 40 MG; Start 01/05/17 at 06:30 Lorazepam 1 mg 1 mg Q4H PRN IV agitation Last administered on 01/12/17 21:54; Admin Dose 1 MG; Start 01/05/17 at 07:00 Fentanyl (Sublimaze) 100 ml @ 2.5 mls/hr TITRATE IV Last administered on 15:27; Admin Dose 5 MLS/HR; Start 01/05/17 at 12:25 Hydralazine HCl 10 mg 10 mg Q2H PRN IV SBP >170 Last administered on 01/12/17 22:01; Admin Dose 10 MG; Start 01/06/17 at 03:00 Fluconazole/ Sodium Chloride 50 ml @ 50 mls/hr Q24H IVPB Last administered on 12:57; Admin Dose 50 MLS/HR; Start 01/07/17 at 12:00 Vancomycin HCl 750 mg/Sodium Chloride 150 ml @ 75 mls/hr Q12H IVPB Last administered on 01/13/17 22:15; Admin Dose 75 MLS/HR; Start 01/09/17 at 11:00 Piperacillin Sod/ Tazobactam Sod (Zosyn 3.375gm/ 100 ml (Pmx)) 100 ml @ 200 mls /hr Q6 IVPB Last administered on 01/14/17 05:05; Admin Dose 200 MLS/HR; Start 01/09/17 at 12:00 Docusate Sodium 100 mg 100 mg BID NGT Last administered on 01/14/17 09:56; Admin Dose 100 MG; Start 01/10/17 at 10:00 Potassium Chloride/Dextrose (KCl/D5W) 1,015 ml @ 100 mls/hr Q10H9M IV Last administered on 01/13/17 11:35; Admin Dose 70 MLS/HR; Start 01/11/17 at 07:00 Furosemide (Lasix) 20 mg Q8 IV Last administered on 01/14/17 05:04; Admin Dose 20 MG; Start 01/11/17 at 14:00 Methylprednisolone Sodium Succinate (Solu-Medrol) 40 mg DAILY IV Last administered on 01/14/17 09:56; Admin Dose 40 MG; Start 01/12/17 at 11:00 NANCY HULL NP Jan 14, 2017 10:30
[2017-01-14] MEDS: morphine 2 MG INJ IV PRN ×2 (11:08→20:46)
--- NOTE | 2017-01-14 11:39 | PN ---
Date/Time of Note Date/Time of Note DATE: 01/14/17 TIME: 11:34 Assessment/Plan VTE Prophylaxis VTE Prophylaxis Intervention: SCD's Assessment/Plan Chief Complaint/Hosp Course 1. Severe systemic shock likely hypovolemic from acute intra-abdominal hemorrhage / subcapsular hepatic hematoma causing severe coagulopathy: resolved 2. Persistent resp failure 2/2 aspiration pneumonia: extubated now but dependent on bipap 3. Acute encephalopathy secondary to pneumonia-resolved 4. Recurrence of acute kidney injury secondary to #1: improving 5. 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 Hypertension: better control 7. Diffuse venous thrombosis to include hepatic, portal, and right upper extremity veins 8. Status post alpha hemolytic strep bacteremia 9. Solitary seizure episode likely secondary to #1 10. Acute transaminitis and coagulopathy secondary to subcapsular hematoma s/ p status post hepatic artery ligation versus embolization via IR : Improving 11. Maurice Pneumonia R >>L. * Had lung nodules on admission likely 2/2 pneumonia, no longer present on CT 12. Debility 13. Mild hepatic infarct on CT likely related to #10 14. Persistent hypokalemia and hypophosphatemia Plan: * Resp status is still poor and is requiring persistent BiPAP, remain in ICU / continue gentle diuresis * NG tube feedings have been on hold secondary to BiPAP * Patient remains on D5 water with potassium chloride, but is also on Lasix for diuresis * Monitor and replace electrolytes * Continue to closely monitor hemoglobin levels and liver function * Patient remains off anticoagulation d/t bleeding * Patient continues on Abx per ID * No further seizures * Regarding uterine lesion, patient may benefit from total hysterectomy and possible salpingo-oophorectomy with mass excision and biopsy if able to stabilize her. Prophylaxis: SCDs/IV PPI Problems: Subjective 24 Hr Interval Summary Respiratory: shortness of breath Exam/Review of Systems Vital Signs Vitals Vital Signs Date Time Temp Pulse Resp B/P Pulse Ox O2 Delivery O2 Flow Rate FiO2 01/14/17 08:00 73 01/14/17 06:00 25 142/72 98 01/14/17 05:24 30 01/14/17 04:00 98.8 01/13/17 20:00 BIPAP 01/11/17 23:45 5.0 Intake and Output 01/13/17 01/13/17 01/14/17 15:00 23:00 07:00 Intake Total 310 ml 260 ml Output Total 1630 ml 1320 ml 1450 ml Balance -1320 ml -1060 ml -1450 ml Exam Constitutional: alert Respiratory: clear to auscultation Cardiovascular: regular rate and rhythm Gastrointestinal: soft, No distended Musculoskeletal: nl extremities to inspection Results Result Diagram: 01/14/17 0500 01/14/17 0500 Results 24 hrs Laboratory Tests Test 01/14/17 05:00 01/14/17 05:15 White Blood Count 14.8 H Red Blood Count 3.41 L Hemoglobin 10.7 L Hematocrit 33.7 L Mean Corpuscular Volume 98.8 Mean Corpuscular Hemoglobin 31.4 Mean Corpuscular Hemoglobin Concent 31.8 L Red Cell Distribution Width 19.7 H Platelet Count 427 H Mean Platelet Volume 11.0 H Neutrophils % 88.1 H Lymphocytes % 4.1 L Monocytes % 7.0 Eosinophils % 0.0 Basophils % 0.1 Nucleated Red Blood Cells % 0.0 Neutrophils # 13.0 H Lymphocytes # 0.6 L Monocytes # 1.0 H Eosinophils # 0.0 Basophils # 0.0 Nucleated Red Blood Cells # 0.0 Sodium Level 148 H Potassium Level 3.9 Chloride Level 104 Carbon Dioxide Level 29 Anion Gap 19 #H Blood Urea Nitrogen 22 H Creatinine 0.66 Glucose Level 102 Calcium Level 9.6 Total Bilirubin 4.6 H Direct Bilirubin 2.30 #H Indirect Bilirubin 2.3 H Aspartate Amino Transf (AST/SGOT) 41 Alanine Aminotransferase (ALT/SGPT) 40 Alkaline Phosphatase 119 Total Protein 6.8 Albumin 3.8 Globulin 3.00 Albumin/Globulin Ratio 1.26 Phosphorus Level 3.5 Magnesium Level 1.6 L Medications Medications Current Medications Ondansetron HCl (Zofran Inj) 4 mg Q6H PRN IV NAUSEA AND/OR VOMITING Last administered on 01/05/17 02:20; Admin Dose 4 MG; Start 12/20/16 at 07:30 Acetaminophen (Tylenol Tab) 650 mg Q6H PRN PO PAIN LEVEL 1-3 OR FEVER Last administered on 01/11/17 19:27; Admin Dose 650 MG; Start 12/20/16 at 07:30 Morphine Sulfate (morphine) 4 mg Q4H PRN IV SEVERE PAIN LEVEL 7-10 Last administered on 01/12/17 11:23; Admin Dose 4 MG; Start 12/20/16 at 07:30 Amlodipine Besylate (Norvasc) 5 mg DAILY PO Last administered on 01/14/17 09:56 ; Admin Dose 5 MG; Start 12/21/16 at 09:00 Acetaminophen/ Hydrocodone Bitart ([place] (5/325)) 1 tab Q6H PRN PO PAIN LEVEL 7 -10 Last administered on 01/03/17 21:54; Admin Dose 1 TAB; Start 12/30/16 at 18 :00 Hydromorphone HCl (Dilaudid) 1 mg Q4H PRN IV SEVERE PAIN LEVEL 7-10 Last administered on 01/05/17 02:21; Admin Dose 1 MG; Start 01/02/17 at 17:45 Senna 1 tab 1 tab BID PO Last administered on 01/14/17 09:56; Admin Dose 1 TAB ; Start 01/03/17 at 21:00 Norepinephrine/ Dextrose (Levophed/D5W) 500 ml @ 1.87 mls/hr TITRATE IV Last administered on 01/05/17 09:13; Admin Dose 28.12 MLS/HR; Start 01/04/17 at 11: 00 Lorazepam (Ativan) 1 mg Q1H PRN IV Seizures Last administered on 01/12/17 14:31 ; Admin Dose 1 MG; Start 01/04/17 at 19:30 IV Flush (NS 10 ml) 10 ml PRN PRN IV FLUSH LINE; Start 01/04/17 at 20:00 Morphine Sulfate (morphine) 2 mg Q4H PRN IV pain Last administered on 01/14/17 11:08; Admin Dose 2 MG; Start 01/05/17 at 01:30 Pantoprazole (Protonix Iv) 40 mg DAILY@06 IV Last administered on 01/14/17 05: 04; Admin Dose 40 MG; Start 01/05/17 at 06:30 Lorazepam 1 mg 1 mg Q4H PRN IV agitation Last administered on 01/12/17 21:54; Admin Dose 1 MG; Start 01/05/17 at 07:00 Fentanyl (Sublimaze) 100 ml @ 2.5 mls/hr TITRATE IV Last administered on 15:27; Admin Dose 5 MLS/HR; Start 01/05/17 at 12:25 Hydralazine HCl 10 mg 10 mg Q2H PRN IV SBP >170 Last administered on 01/12/17 22:01; Admin Dose 10 MG; Start 01/06/17 at 03:00 Fluconazole/ Sodium Chloride 50 ml @ 50 mls/hr Q24H IVPB Last administered on 12:57; Admin Dose 50 MLS/HR; Start 01/07/17 at 12:00 Vancomycin HCl 750 mg/Sodium Chloride 150 ml @ 75 mls/hr Q12H IVPB Last administered on 01/13/17 22:15; Admin Dose 75 MLS/HR; Start 01/09/17 at 11:00 Piperacillin Sod/ Tazobactam Sod (Zosyn 3.375gm/ 100 ml (Pmx)) 100 ml @ 200 mls /hr Q6 IVPB Last administered on 01/14/17 05:05; Admin Dose 200 MLS/HR; Start 01/09/17 at 12:00 Docusate Sodium 100 mg 100 mg BID NGT Last administered on 01/14/17 09:56; Admin Dose 100 MG; Start 01/10/17 at 10:00 Potassium Chloride/Dextrose (KCl/D5W) 1,015 ml @ 100 mls/hr Q10H9M IV Last administered on 01/13/17 11:35; Admin Dose 70 MLS/HR; Start 01/11/17 at 07:00 Furosemide (Lasix) 20 mg Q8 IV Last administered on 01/14/17 05:04; Admin Dose 20 MG; Start 01/11/17 at 14:00 Methylprednisolone Sodium Succinate (Solu-Medrol) 40 mg DAILY IV Last administered on 01/14/17 09:56; Admin Dose 40 MG; Start 01/12/17 at 11:00 SHELLEY VALENCIA Jan 14, 2017 11:39
--- NOTE | 2017-01-14 12:01 | CONS ---
Date/Time of Note Date/Time of Note DATE: 01/14/17 TIME: 11:58 Assessment/Plan Assessment/Plan Chief Complaint/Hosp Course Assessment 1. Acute respiratory failure managed by pulmonary 2. Anemia acute CT scan Intraabdominal hemorrhage Very large mixed density acute subcapsular hematoma of the liver with moderate blood seen throughout the abdomen and pelvis. Right lower lobe atelectasis or infiltrate and small bilateral effusions. Horseshoe kidneys 3. Transaminitis 4. 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 COMMENT: This case has been reviewed by Dr. Carlos Garcia of [facility] who essentially concurs with our interpretation and he states that the histopathological features are suggestive of but not characteristic for inflammatory (myofibroblastic) pseudotumor, and due to difficulty in assessing IgG4/IgG ratio due to diffuse background staining a diagnosis of sclerosing cholangitis, which can be seen in IgG4-associated liver disease cannot be made at this time. Please see attached consultation report. 5. Portal vein thrombosis Reommendation: 1. monitor hemoglobin and hematocrit and transfuse 1 unit PRBC if HGB <7.5 ,2 units PRBC hemoglobin less than 7 2. liver biopsy is unrevealing. I would recommend Heme/Onc consult to determine next steps in w/u of his liver lesions if necessary. 3. trend liver enzymes, elevation of ast,alt could be attributed to subcapsular hematoma 4. continue NG feeding if possible 5. continue supportive care including abx 6. consider TPN vs PEG if BIPAP prevents NG feeding 7. Dr. Cabrera to resume care tomorrow. Problems: Consultation Date/Type/Reason Admit Date/Time Dec 19, 2016 at 21:34 Initial Consult Date 12/26/16 Type of Consultation: GI Referring Provider: KAHLIL MARTEL 24 HR Interval Summary Free Text/Dictation daugher at bedside, still has respiratory distress when off BIPAP, cannot give tube feed secondary to being on BIPAP Exam/Review of Systems Vital Signs Vitals Vital Signs Date Time Temp Pulse Resp B/P Pulse Ox O2 Delivery O2 Flow Rate FiO2 01/14/17 08:00 73 01/14/17 06:00 25 142/72 98 01/14/17 05:24 30 01/14/17 04:00 98.8 01/13/17 20:00 BIPAP 01/11/17 23:45 5.0 Intake and Output 01/13/17 01/13/17 01/14/17 14:59 22:59 06:59 Intake Total 240 ml 330 ml Output Total 1635 ml 1420 ml 1550 ml Balance -1395 ml -1090 ml -1550 ml Exam Constitutional: alert, frail, obese, oriented Psych: nl mood/affect, no complaints Head: atraumatic, normocephalic Eyes: EOMI, nl conjunctiva, nl lids ENMT: mucosa pink and moist, nl external ears & nose, nl lips & teeth, nl nasal mucosa & septum Neck: non-tender, supple Respiratory: clear to auscultation, normal air movement Cardiovascular: nl pulses, regular rate and rhythm Gastrointestinal: bowel sounds, non-tender, soft Results Result Diagram: 01/14/17 0500 01/14/17 0500 Results 24 hrs Laboratory Tests Test 01/14/17 05:00 01/14/17 05:15 White Blood Count 14.8 H Red Blood Count 3.41 L Hemoglobin 10.7 L Hematocrit 33.7 L Mean Corpuscular Volume 98.8 Mean Corpuscular Hemoglobin 31.4 Mean Corpuscular Hemoglobin Concent 31.8 L Red Cell Distribution Width 19.7 H Platelet Count 427 H Mean Platelet Volume 11.0 H Neutrophils % 88.1 H Lymphocytes % 4.1 L Monocytes % 7.0 Eosinophils % 0.0 Basophils % 0.1 Nucleated Red Blood Cells % 0.0 Neutrophils # 13.0 H Lymphocytes # 0.6 L Monocytes # 1.0 H Eosinophils # 0.0 Basophils # 0.0 Nucleated Red Blood Cells # 0.0 Sodium Level 148 H Potassium Level 3.9 Chloride Level 104 Carbon Dioxide Level 29 Anion Gap 19 #H Blood Urea Nitrogen 22 H Creatinine 0.66 Glucose Level 102 Calcium Level 9.6 Total Bilirubin 4.6 H Direct Bilirubin 2.30 #H Indirect Bilirubin 2.3 H Aspartate Amino Transf (AST/SGOT) 41 Alanine Aminotransferase (ALT/SGPT) 40 Alkaline Phosphatase 119 Total Protein 6.8 Albumin 3.8 Globulin 3.00 Albumin/Globulin Ratio 1.26 Phosphorus Level 3.5 Magnesium Level 1.6 L Medications Medications Current Medications Ondansetron HCl (Zofran Inj) 4 mg Q6H PRN IV NAUSEA AND/OR VOMITING Last administered on 01/05/17 02:20; Admin Dose 4 MG; Start 12/20/16 at 07:30 Acetaminophen (Tylenol Tab) 650 mg Q6H PRN PO PAIN LEVEL 1-3 OR FEVER Last administered on 01/11/17 19:27; Admin Dose 650 MG; Start 12/20/16 at 07:30 Morphine Sulfate (morphine) 4 mg Q4H PRN IV SEVERE PAIN LEVEL 7-10 Last administered on 01/12/17 11:23; Admin Dose 4 MG; Start 12/20/16 at 07:30 Amlodipine Besylate (Norvasc) 5 mg DAILY PO Last administered on 01/14/17 09:56 ; Admin Dose 5 MG; Start 12/21/16 at 09:00 Acetaminophen/ Hydrocodone Bitart ([place] (5/325)) 1 tab Q6H PRN PO PAIN LEVEL 7 -10 Last administered on 01/03/17 21:54; Admin Dose 1 TAB; Start 12/30/16 at 18 :00 Hydromorphone HCl (Dilaudid) 1 mg Q4H PRN IV SEVERE PAIN LEVEL 7-10 Last administered on 01/05/17 02:21; Admin Dose 1 MG; Start 01/02/17 at 17:45 Senna 1 tab 1 tab BID PO Last administered on 01/14/17 09:56; Admin Dose 1 TAB ; Start 01/03/17 at 21:00 Norepinephrine/ Dextrose (Levophed/D5W) 500 ml @ 1.87 mls/hr TITRATE IV Last administered on 01/05/17 09:13; Admin Dose 28.12 MLS/HR; Start 01/04/17 at 11: 00 Lorazepam (Ativan) 1 mg Q1H PRN IV Seizures Last administered on 01/12/17 14:31 ; Admin Dose 1 MG; Start 01/04/17 at 19:30 IV Flush (NS 10 ml) 10 ml PRN PRN IV FLUSH LINE; Start 01/04/17 at 20:00 Morphine Sulfate (morphine) 2 mg Q4H PRN IV pain Last administered on 01/14/17 11:08; Admin Dose 2 MG; Start 01/05/17 at 01:30 Pantoprazole (Protonix Iv) 40 mg DAILY@06 IV Last administered on 01/14/17 05: 04; Admin Dose 40 MG; Start 01/05/17 at 06:30 Lorazepam 1 mg 1 mg Q4H PRN IV agitation Last administered on 01/12/17 21:54; Admin Dose 1 MG; Start 01/05/17 at 07:00 Fentanyl (Sublimaze) 100 ml @ 2.5 mls/hr TITRATE IV Last administered on 15:27; Admin Dose 5 MLS/HR; Start 01/05/17 at 12:25 Hydralazine HCl 10 mg 10 mg Q2H PRN IV SBP >170 Last administered on 01/12/17 22:01; Admin Dose 10 MG; Start 01/06/17 at 03:00 Fluconazole/ Sodium Chloride 50 ml @ 50 mls/hr Q24H IVPB Last administered on 12:57; Admin Dose 50 MLS/HR; Start 01/07/17 at 12:00 Vancomycin HCl 750 mg/Sodium Chloride 150 ml @ 75 mls/hr Q12H IVPB Last administered on 01/13/17 22:15; Admin Dose 75 MLS/HR; Start 01/09/17 at 11:00 Piperacillin Sod/ Tazobactam Sod (Zosyn 3.375gm/ 100 ml (Pmx)) 100 ml @ 200 mls /hr Q6 IVPB Last administered on 01/14/17 05:05; Admin Dose 200 MLS/HR; Start 01/09/17 at 12:00 Docusate Sodium 100 mg 100 mg BID NGT Last administered on 01/14/17 09:56; Admin Dose 100 MG; Start 01/10/17 at 10:00 Potassium Chloride/Dextrose (KCl/D5W) 1,015 ml @ 100 mls/hr Q10H9M IV Last administered on 01/13/17 11:35; Admin Dose 70 MLS/HR; Start 01/11/17 at 07:00 Furosemide (Lasix) 20 mg Q8 IV Last administered on 01/14/17 05:04; Admin Dose 20 MG; Start 01/11/17 at 14:00 Methylprednisolone Sodium Succinate (Solu-Medrol) 40 mg DAILY IV Last administered on 01/14/17 09:56; Admin Dose 40 MG; Start 01/12/17 at 11:00 JANKI RAUSCH MD Jan 14, 2017 12:01
[2017-01-14 12:03] LABS: BILIRUBIN,DIRECT 2.4 mg/dl (0.00-0.20); BILIRUBIN,INDIRECT 2.2 mg/dl (0-1.1); BILIRUBIN,TOTAL 4.6 mg/dl (0.2-1.3)
[2017-01-14] MEDS: FLUCONAZOLE 100 MG/NS (PMX) 50 ML IVPB SCH (12:24)
[2017-01-14] MEDS: VANCOMYCIN 750 MG in SOD CHLORIDE 0.9% 150 ML IVPB SCH ×2 (12:24→22:42)
[2017-01-15] VITALS (35 sets, daily range): BP systolic 109–177; BP diastolic 67–93; PULSE 63–93; RESP 13–29
[2017-01-15] MEDS: PIPER-TAZO 3.375 GM IV (PMX) 100 ML IVPB SCH ×4 (00:49→17:17)
[2017-01-15 05:36] LABS: ADD SCAN DIFF NO
[2017-01-15 05:42] LABS: ABNORMAL IP MESSAGE 1; BASOPHILS % 0.1 % (0.0-2.0); HEMOGLOBIN 10.6 g/dl (12.0-16.0); LYMPHOCYTES # 0.6 10^3/ul (0.8-2.9); LYMPHOCYTES % 4.2 % (15.0-51.0); MEAN CORPUSCULAR HEMOGLOBIN 30.4 pg (29.0-33.0); MEAN CORPUSCULAR HGB CONC 31.2 g/dl (32.0-37.0); MEAN CORPUSCULAR VOLUME 97.4 fl (82.0-101.0); MEAN PLATELET VOLUME 11.2 fl (7.4-10.4); MONOCYTES % 7.3 % (0.0-11.0); NEUTROPHIL # 12.4 10^3/ul (1.6-7.5); NEUTROPHILS % 87.8 % (39.0-77.0); PLATELET COUNT 437 10^3/UL (140-415); RED BLOOD COUNT 3.49 10^6/ul (4.20-5.40); RED CELL DISTRIBUTION WIDTH 19.8 % (11.5-14.5); WHITE BLOOD COUNT 14.1 10^3/ul (4.8-10.8)
[2017-01-15] MEDS: PANTOPRAZOLE 40 MG INJ IV SCH (06:12)
[2017-01-15] MEDS: FUROSEMIDE 20 MG INJ IV SCH ×3 (06:12→20:29)
[2017-01-15] MEDS: morphine 2 MG INJ IV PRN ×2 (06:22→11:28)
[2017-01-15] MEDS: POTASSIUM CHLORIDE 30 MEQ in DEXTROSE 5% 1,000 ML IV SCH (06:23)
[2017-01-15 06:26] LABS: CALCIUM 8.7 mg/dl (8.4-10.2); CREATININE 0.59 mg/dl (0.44-1.00); PHOSPHORUS 2.4 mg/dl (2.5-4.9); POTASSIUM 4.7 mmol/L (3.5-5.1)
--- NOTE | 2017-01-15 07:23 | PN ---
Date/Time of Note Date/Time of Note DATE: 01/15/17 TIME: 07:22 Assessment/Plan Lines/Catheters IV [facility] Type [facility] P[facility] Line Urinary Cath still in place: Yes Assessment/Plan Chief Complaint/Hosp Course 1. Nonoliguric acute kidney injury with previously normal baseline creatinine. Etiology secondary to acute tubular necrosis due to severe anemia, ischemic hypoperfusion, shock. - Patient's renal function has stabilized, - continue current treatment plan, supportive care, renally dose all medications. 2. s/p intra-abdominal bleed. -Hemoglobin levels have been stable. Continue to monitor 3. Volume overload. Improving continue t diuretic therapy as needed. 4. Hypernatremia -Improved Continue- D5W decrease rate -Monitor serial sodium levels 3. Mineral bone disease. Will continue to monitor calcium, phosphorus levels. Replace phosphorus 4. hypokalemia/hypomagnesemia. Monitor and replace as needed 5. Sepsis. status post shock, currently off pressor support. Continue current antibiotic regimen. 6. Hypoxemic respiratory failure. Patient BIPAP. Continue to monitor. Follow -up with pulmonary. CT angiogram showed no evidence of PE 7. Portal vein thrombosis. 8. Multiple liver lesions status post biopsy. Findings consistent with possible lymphoplasmacytic involvement will continue to monitor. Follow up with hematology. 9. Uterine mass. Followup with Gynecology/Oncology. Status post code arrest. Problems: Subjective 24 Hr Interval Summary Free Text/Dictation Patient remains in serious but stable condition. Started to tolerate p.o.'s remains on BiPAP Exam/Review of Systems Vital Signs Vitals Vital Signs Date Time Temp Pulse Resp B/P Pulse Ox O2 Delivery O2 Flow Rate FiO2 01/15/17 06:00 64 15 144/67 98 BIPAP 01/15/17 05:12 30 01/15/17 05:00 98.1 01/11/17 23:45 5.0 Intake and Output 01/14/17 01/14/17 01/15/17 15:00 23:00 07:00 Intake Total 720 ml 800 ml 1100 ml Output Total 1600 ml 1200 ml 900 ml Balance -880 ml -400 ml 200 ml Exam HEENT: Head is normocephalic. NECK: Supple. HEART: Regular rate. LUNGS: Show diminished breath sounds at base. ABDOMEN: Soft, nontender to palpation without rebound or guarding. EXTREMITIES: Negative for clubbing, cyanosis. Positive edema, improving. DERMATOLOGIC: No rashes. MUSCULOSKELETAL: No joint effusions. NEUROLOGIC: No change in exam. Results Result Diagram: 01/15/17 0500 01/15/17 0500 Results 24 hrs Laboratory Tests Test 01/15/17 05:00 White Blood Count 14.1 H Red Blood Count 3.49 L Hemoglobin 10.6 L Hematocrit 34.0 L Mean Corpuscular Volume 97.4 Mean Corpuscular Hemoglobin 30.4 Mean Corpuscular Hemoglobin Concent 31.2 L Red Cell Distribution Width 19.8 H Platelet Count 437 H Mean Platelet Volume 11.2 H Neutrophils % 87.8 H Lymphocytes % 4.2 L Monocytes % 7.3 Eosinophils % 0.0 Basophils % 0.1 Nucleated Red Blood Cells % 0.0 Neutrophils # 12.4 H Lymphocytes # 0.6 L Monocytes # 1.0 H Eosinophils # 0.0 Basophils # 0.0 Nucleated Red Blood Cells # 0.0 Sodium Level 138 Potassium Level 4.7 Chloride Level 96 L Carbon Dioxide Level 29 Anion Gap 18 H Blood Urea Nitrogen 22 H Creatinine 0.59 Glucose Level 296 #H Calcium Level 8.7 Phosphorus Level 2.4 #L Magnesium Level 2.0 Medications Medications Current Medications Ondansetron HCl (Zofran Inj) 4 mg Q6H PRN IV NAUSEA AND/OR VOMITING Last administered on 01/05/17 02:20; Admin Dose 4 MG; Start 12/20/16 at 07:30 Acetaminophen (Tylenol Tab) 650 mg Q6H PRN PO PAIN LEVEL 1-3 OR FEVER Last administered on 01/11/17 19:27; Admin Dose 650 MG; Start 12/20/16 at 07:30 Morphine Sulfate (morphine) 4 mg Q4H PRN IV SEVERE PAIN LEVEL 7-10 Last administered on 01/12/17 11:23; Admin Dose 4 MG; Start 12/20/16 at 07:30 Amlodipine Besylate (Norvasc) 5 mg DAILY PO Last administered on 01/14/17 09:56 ; Admin Dose 5 MG; Start 12/21/16 at 09:00 Acetaminophen/ Hydrocodone Bitart ([place] (5/325)) 1 tab Q6H PRN PO PAIN LEVEL 7 -10 Last administered on 01/03/17 21:54; Admin Dose 1 TAB; Start 12/30/16 at 18 :00 Hydromorphone HCl (Dilaudid) 1 mg Q4H PRN IV SEVERE PAIN LEVEL 7-10 Last administered on 01/05/17 02:21; Admin Dose 1 MG; Start 01/02/17 at 17:45 Senna 1 tab 1 tab BID PO Last administered on 01/14/17 21:24; Admin Dose 1 TAB ; Start 01/03/17 at 21:00 Norepinephrine/ Dextrose (Levophed/D5W) 500 ml @ 1.87 mls/hr TITRATE IV Last administered on 01/05/17 09:13; Admin Dose 28.12 MLS/HR; Start 01/04/17 at 11: 00 Lorazepam (Ativan) 1 mg Q1H PRN IV Seizures Last administered on 01/12/17 14:31 ; Admin Dose 1 MG; Start 01/04/17 at 19:30 IV Flush (NS 10 ml) 10 ml PRN PRN IV FLUSH LINE; Start 01/04/17 at 20:00 Morphine Sulfate (morphine) 2 mg Q4H PRN IV pain Last administered on 01/15/17 06:22; Admin Dose 2 MG; Start 01/05/17 at 01:30 Pantoprazole (Protonix Iv) 40 mg DAILY@06 IV Last administered on 01/15/17 06: 12; Admin Dose 40 MG; Start 01/05/17 at 06:30 Lorazepam 1 mg 1 mg Q4H PRN IV agitation Last administered on 01/12/17 21:54; Admin Dose 1 MG; Start 01/05/17 at 07:00 Fentanyl (Sublimaze) 100 ml @ 2.5 mls/hr TITRATE IV Last administered on 15:27; Admin Dose 5 MLS/HR; Start 01/05/17 at 12:25 Hydralazine HCl 10 mg 10 mg Q2H PRN IV SBP >170 Last administered on 01/12/17 22:01; Admin Dose 10 MG; Start 01/06/17 at 03:00 Fluconazole/ Sodium Chloride 50 ml @ 50 mls/hr Q24H IVPB Last administered on 12:24; Admin Dose 50 MLS/HR; Start 01/07/17 at 12:00 Vancomycin HCl 750 mg/Sodium Chloride 150 ml @ 75 mls/hr Q12H IVPB Last administered on 01/14/17 22:42; Admin Dose 75 MLS/HR; Start 01/09/17 at 11:00 Piperacillin Sod/ Tazobactam Sod (Zosyn 3.375gm/ 100 ml (Pmx)) 100 ml @ 200 mls /hr Q6 IVPB Last administered on 01/15/17 06:12; Admin Dose 200 MLS/HR; Start 01/09/17 at 12:00 Docusate Sodium 100 mg 100 mg BID NGT Last administered on 01/14/17 21:24; Admin Dose 100 MG; Start 01/10/17 at 10:00 Potassium Chloride/Dextrose (KCl/D5W) 1,015 ml @ 100 mls/hr Q10H9M IV Last administered on 01/15/17 06:23; Admin Dose 100 MLS/HR; Start 01/11/17 at 07:00 Furosemide (Lasix) 20 mg Q8 IV Last administered on 01/15/17 06:12; Admin Dose 20 MG; Start 01/11/17 at 14:00 Methylprednisolone Sodium Succinate (Solu-Medrol) 40 mg DAILY IV Last administered on 01/14/17 09:56; Admin Dose 40 MG; Start 01/12/17 at 11:00 MILLY DAIGLE DO Jan 15, 2017 07:23
[2017-01-15] MEDS ORDERED: POTASSIUM PHOSPHATE 20 MEQ in SOD CHLORIDE 0.9% 250 ML IVPB ONE (08:30)
[2017-01-15] MEDS: DOCUSATE SODIUM 10 MG/ML (10ML CUP) NGT SCH ×2 (09:00→20:29)
[2017-01-15] MEDS: SENNA TAB PO SCH ×2 (09:00→20:29)
[2017-01-15] MEDS: METHYLPREDNISOLONE 40 MG INJ IV SCH (09:09)
[2017-01-15] MEDS: AMLODIPINE 5 MG TAB PO SCH (09:12)
--- NOTE | 2017-01-15 10:09 | PN ---
Date/Time of Note Date/Time of Note DATE: 01/15/17 TIME: 09:56 Assessment/Plan VTE Prophylaxis VTE Prophylaxis Intervention: SCD's Lines/Catheters IV Catheter Type (from [facility]): PICC Line Central line still needed: Yes Urinary Cath still in place: Yes Reason Cath still needed: urinary retention Assessment/Plan Chief Complaint/Hosp Course Bx of hepatic lesions do not detect any malignancy. 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 Hepatic hemorrhage seems to have been controlled. No further bleeding. Coagulation parameters are nl. No evidence of DIC at this time or in past. Uterine lesion not likely to be related to the hepatic process, but further evaluation is needed. Cannot r/o the poss of a leiomyosarcoma. Problems: (1) Transaminitis Status: Acute (2) Hepatic vein thrombosis Status: Acute (3) Portal vein thrombosis Status: Acute (4) Anemia Status: Acute Qualifiers: Anemia type: other cause Other causes of anemia: other cause, not classified Qualified Code: D64.89 - Anemia due to other cause, not classified (5) Uterine mass Status: Acute (6) Jaundice Status: Acute Assessment/Plan Pt has improved considerably. Still has jaundice and other abn LFT's. Unclear if this is still due to the post bx hemorrhage. Have discussed liver bx results again with the family. Have also discussed the uterine lesion and explained that although this is likely unrelated, further w/ u is indicated. Will obtain LFT's on this AM's specimen. Subjective 24 Hr Interval Summary Free Text/Dictation Pt states that she is feeling much better. No c/o abd pain. No shaking chills or night sweats. Still is SOB but no chest pain. Exam/Review of Systems Vital Signs Vitals Vital Signs Date Time Temp Pulse Resp B/P Pulse Ox O2 Delivery O2 Flow Rate FiO2 01/15/17 09:53 86 24 158/87 99 Nasal Cannula 4.0 01/15/17 08:00 97.7 01/15/17 05:12 30 Intake and Output 01/14/17 01/14/17 01/15/17 15:00 23:00 07:00 Intake Total 720 ml 800 ml 1100 ml Output Total 1600 ml 1200 ml 900 ml Balance -880 ml -400 ml 200 ml Exam Constitutional: alert, obese, oriented Head: atraumatic, normocephalic Eyes: EOMI, PERRL, icteric, nl conjunctiva ENMT: mucosa pink and moist, nl lips & teeth Neck: non-tender, supple Respiratory: clear to auscultation, normal air movement Cardiovascular: nl pulses, regular rate and rhythm Gastrointestinal: distended, other (sl tenderness in RUQ. 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, nl mental status Skin: nl turgor Lymph: nl lymph nodes Results Result Diagram: 01/15/17 0500 01/15/17 0500 Results 24 hrs Laboratory Tests Test 01/15/17 05:00 White Blood Count 14.1 H Red Blood Count 3.49 L Hemoglobin 10.6 L Hematocrit 34.0 L Mean Corpuscular Volume 97.4 Mean Corpuscular Hemoglobin 30.4 Mean Corpuscular Hemoglobin Concent 31.2 L Red Cell Distribution Width 19.8 H Platelet Count 437 H Mean Platelet Volume 11.2 H Neutrophils % 87.8 H Lymphocytes % 4.2 L Monocytes % 7.3 Eosinophils % 0.0 Basophils % 0.1 Nucleated Red Blood Cells % 0.0 Neutrophils # 12.4 H Lymphocytes # 0.6 L Monocytes # 1.0 H Eosinophils # 0.0 Basophils # 0.0 Nucleated Red Blood Cells # 0.0 Sodium Level 138 Potassium Level 4.7 Chloride Level 96 L Carbon Dioxide Level 29 Anion Gap 18 H Blood Urea Nitrogen 22 H Creatinine 0.59 Glucose Level 296 #H Calcium Level 8.7 Phosphorus Level 2.4 #L Magnesium Level 2.0 Medications Medications Current Medications Ondansetron HCl (Zofran Inj) 4 mg Q6H PRN IV NAUSEA AND/OR VOMITING Last administered on 01/05/17 02:20; Admin Dose 4 MG; Start 12/20/16 at 07:30 Acetaminophen (Tylenol Tab) 650 mg Q6H PRN PO PAIN LEVEL 1-3 OR FEVER Last administered on 01/11/17 19:27; Admin Dose 650 MG; Start 12/20/16 at 07:30 Morphine Sulfate (morphine) 4 mg Q4H PRN IV SEVERE PAIN LEVEL 7-10 Last administered on 01/12/17 11:23; Admin Dose 4 MG; Start 12/20/16 at 07:30 Amlodipine Besylate (Norvasc) 5 mg DAILY PO Last administered on 01/15/17 09:12 ; Admin Dose 5 MG; Start 12/21/16 at 09:00 Acetaminophen/ Hydrocodone Bitart ([place] (5/325)) 1 tab Q6H PRN PO PAIN LEVEL 7 -10 Last administered on 01/03/17 21:54; Admin Dose 1 TAB; Start 12/30/16 at 18 :00 Hydromorphone HCl (Dilaudid) 1 mg Q4H PRN IV SEVERE PAIN LEVEL 7-10 Last administered on 01/05/17 02:21; Admin Dose 1 MG; Start 01/02/17 at 17:45 Senna 1 tab 1 tab BID PO Last administered on 01/14/17 21:24; Admin Dose 1 TAB ; Start 01/03/17 at 21:00 Norepinephrine/ Dextrose (Levophed/D5W) 500 ml @ 1.87 mls/hr TITRATE IV Last administered on 01/05/17 09:13; Admin Dose 28.12 MLS/HR; Start 01/04/17 at 11: 00 Lorazepam (Ativan) 1 mg Q1H PRN IV Seizures Last administered on 01/12/17 14:31 ; Admin Dose 1 MG; Start 01/04/17 at 19:30 IV Flush (NS 10 ml) 10 ml PRN PRN IV FLUSH LINE; Start 01/04/17 at 20:00 Morphine Sulfate (morphine) 2 mg Q4H PRN IV pain Last administered on 01/15/17 06:22; Admin Dose 2 MG; Start 01/05/17 at 01:30 Pantoprazole (Protonix Iv) 40 mg DAILY@06 IV Last administered on 01/15/17 06: 12; Admin Dose 40 MG; Start 01/05/17 at 06:30 Lorazepam 1 mg 1 mg Q4H PRN IV agitation Last administered on 01/12/17 21:54; Admin Dose 1 MG; Start 01/05/17 at 07:00 Fentanyl (Sublimaze) 100 ml @ 2.5 mls/hr TITRATE IV Last administered on 15:27; Admin Dose 5 MLS/HR; Start 01/05/17 at 12:25 Hydralazine HCl 10 mg 10 mg Q2H PRN IV SBP >170 Last administered on 01/12/17 22:01; Admin Dose 10 MG; Start 01/06/17 at 03:00 Fluconazole/ Sodium Chloride 50 ml @ 50 mls/hr Q24H IVPB Last administered on 12:24; Admin Dose 50 MLS/HR; Start 01/07/17 at 12:00 Vancomycin HCl 750 mg/Sodium Chloride 150 ml @ 75 mls/hr Q12H IVPB Last administered on 01/14/17 22:42; Admin Dose 75 MLS/HR; Start 01/09/17 at 11:00 Piperacillin Sod/ Tazobactam Sod (Zosyn 3.375gm/ 100 ml (Pmx)) 100 ml @ 200 mls /hr Q6 IVPB Last administered on 01/15/17 06:12; Admin Dose 200 MLS/HR; Start 01/09/17 at 12:00 Docusate Sodium 100 mg 100 mg BID NGT Last administered on 01/14/17 21:24; Admin Dose 100 MG; Start 01/10/17 at 10:00 Potassium Chloride/Dextrose (KCl/D5W) 1,015 ml @ 50 mls/hr [id number] IV Last administered on 01/15/17 06:23; Admin Dose 100 MLS/HR; Start 01/11/17 at 07:00 Furosemide (Lasix) 20 mg Q8 IV Last administered on 01/15/17 06:12; Admin Dose 20 MG; Start 01/11/17 at 14:00 Methylprednisolone Sodium Succinate 40 mg 40 mg DAILY IV Last administered on 09:09; Admin Dose 40 MG; Start 01/12/17 at 11:00 Potassium Phosphate/Sodium Chloride (K Phos (Meq)/NS) 254.5455 ml @ 63.636 m... ONCE ONCE IVPB Last administered on 01/15/17 09:09; Admin Dose 63.636 MLS /HR; Start 01/15/17 at 08:30; Stop 01/15/17 at 12:29 ECTOR GHOSH MD Jan 15, 2017 10:07
[2017-01-15 10:22] LABS: ALBUMIN 3.8 g/dl (3.3-4.9); BILIRUBIN,DIRECT 2.4 mg/dl (0.00-0.20); BILIRUBIN,INDIRECT 2.4 mg/dl (0-1.1); BILIRUBIN,TOTAL 4.8 mg/dl (0.2-1.3); TOTAL PROTEIN 6.9 g/dl (6.1-8.1)
[2017-01-15] MEDS ORDERED: GLUCOSE GEL 15 GRAM TUBE PO PRN ×2 (10:30)
[2017-01-15] MEDS ORDERED: DEXTROSE 50% 50 ML SYRINGE IV PRN ×2 (10:30)
[2017-01-15] MEDS ORDERED: GLUCOSE GEL 15 GRAM TUBE BUCCAL PRN (10:30)
[2017-01-15] MEDS ORDERED: GLUCAGON 1 MG INJ IM PRN (10:30)
[2017-01-15] MEDS: VANCOMYCIN 750 MG in SOD CHLORIDE 0.9% 150 ML IVPB SCH ×2 (11:28→22:04)
[2017-01-15] MEDS: INSULIN ASPART [NOVOLOG] 3 ML PEN SC SCH ×3 (11:30→20:10)
--- NOTE | 2017-01-15 12:15 | CONS ---
Date/Time of Note Date/Time of Note DATE: 01/15/17 TIME: 12:14 Assessment/Plan Assessment/Plan Chief Complaint/Hosp Course No acute changes overnight, patient is alert comfortable on BiPAP, no fevers, family at bedside Vital signs: Temperature 97.7 pulse 67 respirations 15 blood pressure 109/78 saturation 100% Laboratory data WBC 14.1 H&H 10.6 and 34 platelets 437 neutrophils 87.8 BUN 22 creatinine 0.59 Indwelling's: Lau PICC line Antimicrobials: Zosyn vancomycin fluconazole day #9 Physical examination: Morbidly obese, well-developed middle-aged woman who is alert in no distress. Head atraumatic normocephalic, sclera nonicteric. Neck is obese, trachea midline. Chest rise symmetrical breath sounds diminished basis. Heart S1-S2. Abdomen soft distended bowel tones hypoactive. Extremities with trace edema Assessment: 1. Acute respiratory failure 2. Healthcare associated pneumonia 3. Status post hepatic hemorrhage secondary to liver biopsy 4. 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 Hepatic and portal vein thrombosis 6. Status post streptococcal bacteremia on admission with repeat blood cultures being negative 7. Uterine lesion, possibly malignant Plan: Overall improving, continue antibiotics, follow recommendations of consultants Discussed with staff Discussed with family at bedside Problems: Consultation Date/Type/Reason Admit Date/Time Dec 19, 2016 at 21:34 Initial Consult Date 12/20/16 Type of Consultation: ID Referring Provider: KAHLIL MARTEL Exam/Review of Systems Vital Signs Vitals Vital Signs Date Time Temp Pulse Resp B/P Pulse Ox O2 Delivery O2 Flow Rate FiO2 01/15/17 11:00 71 17 134/70 100 BIPAP 4.0 01/15/17 08:00 97.7 01/15/17 05:12 30 Intake and Output 01/14/17 01/14/17 01/15/17 14:59 22:59 06:59 Intake Total 620 ml 900 ml 1100 ml Output Total 1600 ml 1300 ml 1000 ml Balance -980 ml -400 ml 100 ml Results Result Diagram: 01/15/17 0500 01/15/17 0500 Results 24 hrs Laboratory Tests Test 01/15/17 05:00 01/15/17 11:30 White Blood Count 14.1 H Red Blood Count 3.49 L Hemoglobin 10.6 L Hematocrit 34.0 L Mean Corpuscular Volume 97.4 Mean Corpuscular Hemoglobin 30.4 Mean Corpuscular Hemoglobin Concent 31.2 L Red Cell Distribution Width 19.8 H Platelet Count 437 H Mean Platelet Volume 11.2 H Neutrophils % 87.8 H Lymphocytes % 4.2 L Monocytes % 7.3 Eosinophils % 0.0 Basophils % 0.1 Nucleated Red Blood Cells % 0.0 Neutrophils # 12.4 H Lymphocytes # 0.6 L Monocytes # 1.0 H Eosinophils # 0.0 Basophils # 0.0 Nucleated Red Blood Cells # 0.0 Sodium Level 138 Potassium Level 4.7 Chloride Level 96 L Carbon Dioxide Level 29 Anion Gap 18 H Blood Urea Nitrogen 22 H Creatinine 0.59 Glucose Level 296 #H Calcium Level 8.7 Phosphorus Level 2.4 #L Magnesium Level 2.0 Total Bilirubin 4.8 H Direct Bilirubin 2.40 H Indirect Bilirubin 2.4 H Aspartate Amino Transf (AST/SGOT) 52 H Alanine Aminotransferase (ALT/SGPT) 34 Alkaline Phosphatase 130 H Total Protein 6.9 Albumin 3.8 Bedside Glucose 112 Medications Medications Current Medications Ondansetron HCl (Zofran Inj) 4 mg Q6H PRN IV NAUSEA AND/OR VOMITING Last administered on 01/05/17 02:20; Admin Dose 4 MG; Start 12/20/16 at 07:30 Acetaminophen (Tylenol Tab) 650 mg Q6H PRN PO PAIN LEVEL 1-3 OR FEVER Last administered on 01/11/17 19:27; Admin Dose 650 MG; Start 12/20/16 at 07:30 Morphine Sulfate (morphine) 4 mg Q4H PRN IV SEVERE PAIN LEVEL 7-10 Last administered on 01/12/17 11:23; Admin Dose 4 MG; Start 12/20/16 at 07:30 Amlodipine Besylate (Norvasc) 5 mg DAILY PO Last administered on 01/15/17 09:12 ; Admin Dose 5 MG; Start 12/21/16 at 09:00 Acetaminophen/ Hydrocodone Bitart ([place] (5/325)) 1 tab Q6H PRN PO PAIN LEVEL 7 -10 Last administered on 01/03/17 21:54; Admin Dose 1 TAB; Start 12/30/16 at 18 :00 Hydromorphone HCl (Dilaudid) 1 mg Q4H PRN IV SEVERE PAIN LEVEL 7-10 Last administered on 01/05/17 02:21; Admin Dose 1 MG; Start 01/02/17 at 17:45 Senna 1 tab 1 tab BID PO Last administered on 01/14/17 21:24; Admin Dose 1 TAB ; Start 01/03/17 at 21:00 Norepinephrine/ Dextrose (Levophed/D5W) 500 ml @ 1.87 mls/hr TITRATE IV Last administered on 01/05/17 09:13; Admin Dose 28.12 MLS/HR; Start 01/04/17 at 11: 00 Lorazepam (Ativan) 1 mg Q1H PRN IV Seizures Last administered on 01/12/17 14:31 ; Admin Dose 1 MG; Start 01/04/17 at 19:30 IV Flush (NS 10 ml) 10 ml PRN PRN IV FLUSH LINE; Start 01/04/17 at 20:00 Morphine Sulfate (morphine) 2 mg Q4H PRN IV pain Last administered on 01/15/17 11:28; Admin Dose 2 MG; Start 01/05/17 at 01:30 Pantoprazole (Protonix Iv) 40 mg DAILY@06 IV Last administered on 01/15/17 06: 12; Admin Dose 40 MG; Start 01/05/17 at 06:30 Lorazepam 1 mg 1 mg Q4H PRN IV agitation Last administered on 01/12/17 21:54; Admin Dose 1 MG; Start 01/05/17 at 07:00 Fentanyl (Sublimaze) 100 ml @ 2.5 mls/hr TITRATE IV Last administered on 15:27; Admin Dose 5 MLS/HR; Start 01/05/17 at 12:25 Hydralazine HCl 10 mg 10 mg Q2H PRN IV SBP >170 Last administered on 01/12/17 22:01; Admin Dose 10 MG; Start 01/06/17 at 03:00 Fluconazole/ Sodium Chloride 50 ml @ 50 mls/hr Q24H IVPB Last administered on 12:24; Admin Dose 50 MLS/HR; Start 01/07/17 at 12:00 Vancomycin HCl 750 mg/Sodium Chloride 150 ml @ 75 mls/hr Q12H IVPB Last administered on 01/15/17 11:28; Admin Dose 75 MLS/HR; Start 01/09/17 at 11:00 Piperacillin Sod/ Tazobactam Sod (Zosyn 3.375gm/ 100 ml (Pmx)) 100 ml @ 200 mls /hr Q6 IVPB Last administered on 01/15/17 11:29; Admin Dose 200 MLS/HR; Start 01/09/17 at 12:00 Docusate Sodium 100 mg 100 mg BID NGT Last administered on 01/14/17 21:24; Admin Dose 100 MG; Start 01/10/17 at 10:00 Potassium Chloride/Dextrose (KCl/D5W) 1,015 ml @ 50 mls/hr [id number] IV Last administered on 01/15/17 06:23; Admin Dose 100 MLS/HR; Start 01/11/17 at 07:00 Furosemide (Lasix) 20 mg Q8 IV Last administered on 01/15/17 06:12; Admin Dose 20 MG; Start 01/11/17 at 14:00 Methylprednisolone Sodium Succinate 40 mg 40 mg DAILY IV Last administered on 09:09; Admin Dose 40 MG; Start 01/12/17 at 11:00 Potassium Phosphate/Sodium Chloride (K Phos (Meq)/NS) 254.5455 ml @ 63.636 m... ONCE ONCE IVPB Last administered on 01/15/17 09:09; Admin Dose 63.636 MLS /HR; Start 01/15/17 at 08:30; Stop 01/15/17 at 12:29 Insulin Glargine (Lantus) 10 unit HS SC ; Start 01/15/17 at 21:00 Diagnostic Test (Pha) (Accu-Chek) 1 ea 02 XX ; Start 01/16/17 at 02:00 Miscellaneous Information 1 ea NOTE XX ; Start 01/15/17 at 10:30 Glucose (Glutose) 15 gm Q15M PRN PO DECREASED GLUCOSE; Start 01/15/17 at 10:30 Glucose (Glutose) 22.5 gm Q15M PRN PO DECREASED GLUCOSE; Start 01/15/17 at 10:30 Dextrose (D50w Syringe) 25 ml Q15M PRN IV DECREASED GLUCOSE; Start 01/15/17 at 10:30 Dextrose (D50w Syringe) 50 ml Q15M PRN IV DECREASED GLUCOSE; Start 01/15/17 at 10:30 Glucagon (Glucagen) 1 mg Q15M PRN IM DECREASED GLUCOSE; Start 01/15/17 at 10:30 Glucose (Glutose) 15 gm Q15M PRN BUCCAL DECREASED GLUCOSE; Start 01/15/17 at 10: 30 NANCY HULL NP Jan 15, 2017 12:15
--- NOTE | 2017-01-15 12:37 | PN ---
Date/Time of Note Date/Time of Note DATE: 01/15/17 TIME: 12:34 Assessment/Plan VTE Prophylaxis VTE Prophylaxis Intervention: SCD's Assessment/Plan Chief Complaint/Hosp Course 1. Severe systemic shock likely hypovolemic from acute intra-abdominal hemorrhage / subcapsular hepatic hematoma causing severe coagulopathy: resolved 2. Persistent resp failure 2/2 aspiration pneumonia: extubated now 3. Acute encephalopathy secondary to pneumonia-resolved 4. Recurrence of acute kidney injury secondary to #1: improving 5. 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 Hypertension: better control 7. Diffuse venous thrombosis to include hepatic, portal, and right upper extremity veins 8. Status post alpha hemolytic strep bacteremia 9. Solitary seizure episode likely secondary to #1 10. Acute transaminitis and coagulopathy secondary to subcapsular hematoma s/ p status post hepatic artery ligation versus embolization via IR : Improving 11. Maurice Pneumonia R >>L. * Had lung nodules on admission likely 2/2 pneumonia, no longer present on CT 12. Debility 13. Mild hepatic infarct on CT likely related to #10 14. Persistent hypokalemia and hypophosphatemia Plan: * Resp status is improving and doing a trial of nasal cannula today, will monitor off BiPAP * Patient remains on D5 water with potassium chloride, but is also on Lasix for diuresis * Monitor and replace electrolytes * Continue to closely monitor hemoglobin levels and liver function * Patient remains off anticoagulation d/t bleeding * Patient continues on Abx per ID * No further seizures * Regarding uterine lesion, patient may benefit from total hysterectomy and possible salpingo-oophorectomy with mass excision and biopsy if able to stabilize her. Prophylaxis: SCDs/IV PPI Problems: Subjective 24 Hr Interval Summary Constitutional: no complaints Exam/Review of Systems Vital Signs Vitals Vital Signs Date Time Temp Pulse Resp B/P Pulse Ox O2 Delivery O2 Flow Rate FiO2 01/15/17 11:00 71 17 134/70 100 BIPAP 4.0 01/15/17 08:00 97.7 01/15/17 05:12 30 Intake and Output 01/14/17 01/14/17 01/15/17 15:00 23:00 07:00 Intake Total 720 ml 800 ml 1100 ml Output Total 1600 ml 1200 ml 900 ml Balance -880 ml -400 ml 200 ml Exam Constitutional: alert Respiratory: clear to auscultation Cardiovascular: regular rate and rhythm Gastrointestinal: soft, No distended Musculoskeletal: nl extremities to inspection Results Result Diagram: 01/15/17 0500 01/15/17 0500 Results 24 hrs Laboratory Tests Test 01/15/17 05:00 01/15/17 11:30 White Blood Count 14.1 H Red Blood Count 3.49 L Hemoglobin 10.6 L Hematocrit 34.0 L Mean Corpuscular Volume 97.4 Mean Corpuscular Hemoglobin 30.4 Mean Corpuscular Hemoglobin Concent 31.2 L Red Cell Distribution Width 19.8 H Platelet Count 437 H Mean Platelet Volume 11.2 H Neutrophils % 87.8 H Lymphocytes % 4.2 L Monocytes % 7.3 Eosinophils % 0.0 Basophils % 0.1 Nucleated Red Blood Cells % 0.0 Neutrophils # 12.4 H Lymphocytes # 0.6 L Monocytes # 1.0 H Eosinophils # 0.0 Basophils # 0.0 Nucleated Red Blood Cells # 0.0 Sodium Level 138 Potassium Level 4.7 Chloride Level 96 L Carbon Dioxide Level 29 Anion Gap 18 H Blood Urea Nitrogen 22 H Creatinine 0.59 Glucose Level 296 #H Calcium Level 8.7 Phosphorus Level 2.4 #L Magnesium Level 2.0 Total Bilirubin 4.8 H Direct Bilirubin 2.40 H Indirect Bilirubin 2.4 H Aspartate Amino Transf (AST/SGOT) 52 H Alanine Aminotransferase (ALT/SGPT) 34 Alkaline Phosphatase 130 H Total Protein 6.9 Albumin 3.8 Bedside Glucose 112 Medications Medications Current Medications Ondansetron HCl (Zofran Inj) 4 mg Q6H PRN IV NAUSEA AND/OR VOMITING Last administered on 01/05/17 02:20; Admin Dose 4 MG; Start 12/20/16 at 07:30 Acetaminophen (Tylenol Tab) 650 mg Q6H PRN PO PAIN LEVEL 1-3 OR FEVER Last administered on 01/11/17 19:27; Admin Dose 650 MG; Start 12/20/16 at 07:30 Morphine Sulfate (morphine) 4 mg Q4H PRN IV SEVERE PAIN LEVEL 7-10 Last administered on 01/12/17 11:23; Admin Dose 4 MG; Start 12/20/16 at 07:30 Amlodipine Besylate (Norvasc) 5 mg DAILY PO Last administered on 01/15/17 09:12 ; Admin Dose 5 MG; Start 12/21/16 at 09:00 Acetaminophen/ Hydrocodone Bitart ([place] (5/325)) 1 tab Q6H PRN PO PAIN LEVEL 7 -10 Last administered on 01/03/17 21:54; Admin Dose 1 TAB; Start 12/30/16 at 18 :00 Hydromorphone HCl (Dilaudid) 1 mg Q4H PRN IV SEVERE PAIN LEVEL 7-10 Last administered on 01/05/17 02:21; Admin Dose 1 MG; Start 01/02/17 at 17:45 Senna 1 tab 1 tab BID PO Last administered on 01/14/17 21:24; Admin Dose 1 TAB ; Start 01/03/17 at 21:00 Norepinephrine/ Dextrose (Levophed/D5W) 500 ml @ 1.87 mls/hr TITRATE IV Last administered on 01/05/17 09:13; Admin Dose 28.12 MLS/HR; Start 01/04/17 at 11: 00 Lorazepam (Ativan) 1 mg Q1H PRN IV Seizures Last administered on 01/12/17 14:31 ; Admin Dose 1 MG; Start 01/04/17 at 19:30 IV Flush (NS 10 ml) 10 ml PRN PRN IV FLUSH LINE; Start 01/04/17 at 20:00 Morphine Sulfate (morphine) 2 mg Q4H PRN IV pain Last administered on 01/15/17 11:28; Admin Dose 2 MG; Start 01/05/17 at 01:30 Pantoprazole (Protonix Iv) 40 mg DAILY@06 IV Last administered on 01/15/17 06: 12; Admin Dose 40 MG; Start 01/05/17 at 06:30 Lorazepam 1 mg 1 mg Q4H PRN IV agitation Last administered on 01/12/17 21:54; Admin Dose 1 MG; Start 01/05/17 at 07:00 Fentanyl (Sublimaze) 100 ml @ 2.5 mls/hr TITRATE IV Last administered on 15:27; Admin Dose 5 MLS/HR; Start 01/05/17 at 12:25 Hydralazine HCl 10 mg 10 mg Q2H PRN IV SBP >170 Last administered on 01/12/17 22:01; Admin Dose 10 MG; Start 01/06/17 at 03:00 Fluconazole/ Sodium Chloride 50 ml @ 50 mls/hr Q24H IVPB Last administered on 12:24; Admin Dose 50 MLS/HR; Start 01/07/17 at 12:00 Vancomycin HCl 750 mg/Sodium Chloride 150 ml @ 75 mls/hr Q12H IVPB Last administered on 01/15/17 11:28; Admin Dose 75 MLS/HR; Start 01/09/17 at 11:00 Piperacillin Sod/ Tazobactam Sod (Zosyn 3.375gm/ 100 ml (Pmx)) 100 ml @ 200 mls /hr Q6 IVPB Last administered on 01/15/17 11:29; Admin Dose 200 MLS/HR; Start 01/09/17 at 12:00 Docusate Sodium 100 mg 100 mg BID NGT Last administered on 01/14/17 21:24; Admin Dose 100 MG; Start 01/10/17 at 10:00 Potassium Chloride/Dextrose (KCl/D5W) 1,015 ml @ 50 mls/hr [id number] IV Last administered on 01/15/17 06:23; Admin Dose 100 MLS/HR; Start 01/11/17 at 07:00 Furosemide (Lasix) 20 mg Q8 IV Last administered on 01/15/17 06:12; Admin Dose 20 MG; Start 01/11/17 at 14:00 Methylprednisolone Sodium Succinate (Solu-Medrol) 40 mg DAILY IV Last administered on 01/15/17 09:09; Admin Dose 40 MG; Start 01/12/17 at 11:00 Insulin Glargine (Lantus) 10 unit HS SC ; Start 01/15/17 at 21:00 Diagnostic Test (Pha) (Accu-Chek) 1 ea 02 XX ; Start 01/16/17 at 02:00 Miscellaneous Information 1 ea NOTE XX ; Start 01/15/17 at 10:30 Glucose (Glutose) 15 gm Q15M PRN PO DECREASED GLUCOSE; Start 01/15/17 at 10:30 Glucose (Glutose) 22.5 gm Q15M PRN PO DECREASED GLUCOSE; Start 01/15/17 at 10:30 Dextrose (D50w Syringe) 25 ml Q15M PRN IV DECREASED GLUCOSE; Start 01/15/17 at 10:30 Dextrose (D50w Syringe) 50 ml Q15M PRN IV DECREASED GLUCOSE; Start 01/15/17 at 10:30 Glucagon (Glucagen) 1 mg Q15M PRN IM DECREASED GLUCOSE; Start 01/15/17 at 10:30 Glucose (Glutose) 15 gm Q15M PRN BUCCAL DECREASED GLUCOSE; Start 01/15/17 at 10: 30 SHELLEY VALENCIA Jan 15, 2017 12:36
[2017-01-15] MEDS: FLUCONAZOLE 100 MG/NS (PMX) 50 ML IVPB SCH (13:18)
[2017-01-15] MEDS: DIPHENHYDRAMINE 50 MG INJ IV PRN (13:29)
--- NOTE | 2017-01-15 15:13 | PN ---
Date/Time of Note Date/Time of Note DATE: 01/15/17 TIME: 15:08 Assessment/Plan VTE Prophylaxis VTE Prophylaxis Intervention: contraindicated VTE Contraindication Reason: bleeding Assessment/Plan Assessment/Plan . Acute respiratory failure managed by pulmonary 2. Anemia acute CT scan Intraabdominal hemorrhage Very large mixed density acute subcapsular hematoma of the liver with moderate blood seen throughout the abdomen and pelvis. Right lower lobe atelectasis or infiltrate and small bilateral effusions. Horseshoe kidneys 3. Transaminitis 4. 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 COMMENT: This case has been reviewed by Dr. Carlos Garcia of [facility] who essentially concurs with our interpretation and he states that the histopathological features are suggestive of but not characteristic for inflammatory (myofibroblastic) pseudotumor, and due to difficulty in assessing IgG4/IgG ratio due to diffuse background staining a diagnosis of sclerosing cholangitis, which can be seen in IgG4-associated liver disease cannot be made at this time. Please see attached consultation report. 5. Portal vein thrombosis Plan * Continue present management * Case discussed with Dr Raphael and Dr Cabrera * Further orders will depend on clinical course Subjective 24 Hr Interval Summary Free Text/Dictation * Course reviewed with RN * Patient seen and examined * Patient on Bipap * latest hemoglobin 10.6 Exam/Review of Systems Vital Signs Vitals Vital Signs Date Time Temp Pulse Resp B/P Pulse Ox O2 Delivery O2 Flow Rate FiO2 01/15/17 14:00 69 16 128/86 96 BIPAP 01/15/17 12:00 98.0 01/15/17 11:00 4.0 01/15/17 05:12 30 Intake and Output 01/14/17 01/14/17 01/15/17 15:00 23:00 07:00 Intake Total 720 ml 800 ml 1100 ml Output Total 1600 ml 1200 ml 900 ml Balance -880 ml -400 ml 200 ml Exam Constitutional: alert, oriented Head: normocephalic Eyes: nl sclera Neck: non-tender, supple Respiratory: clear to auscultation, normal air movement Cardiovascular: nl pulses, regular rate and rhythm Gastrointestinal: nl liver, spleen, soft Musculoskeletal: nl extremities to inspection, nl gait and stance Extremities: normal pulses Skin: nl turgor, rash or lesions Lymph: nl lymph nodes Results Result Diagram: 01/15/17 0500 01/15/17 0500 Results 24 hrs Laboratory Tests Test 01/15/17 05:00 01/15/17 11:30 White Blood Count 14.1 H Red Blood Count 3.49 L Hemoglobin 10.6 L Hematocrit 34.0 L Mean Corpuscular Volume 97.4 Mean Corpuscular Hemoglobin 30.4 Mean Corpuscular Hemoglobin Concent 31.2 L Red Cell Distribution Width 19.8 H Platelet Count 437 H Mean Platelet Volume 11.2 H Neutrophils % 87.8 H Lymphocytes % 4.2 L Monocytes % 7.3 Eosinophils % 0.0 Basophils % 0.1 Nucleated Red Blood Cells % 0.0 Neutrophils # 12.4 H Lymphocytes # 0.6 L Monocytes # 1.0 H Eosinophils # 0.0 Basophils # 0.0 Nucleated Red Blood Cells # 0.0 Sodium Level 138 Potassium Level 4.7 Chloride Level 96 L Carbon Dioxide Level 29 Anion Gap 18 H Blood Urea Nitrogen 22 H Creatinine 0.59 Glucose Level 296 #H Hemoglobin A1c 5.4 Calcium Level 8.7 Phosphorus Level 2.4 #L Magnesium Level 2.0 Total Bilirubin 4.8 H Direct Bilirubin 2.40 H Indirect Bilirubin 2.4 H Aspartate Amino Transf (AST/SGOT) 52 H Alanine Aminotransferase (ALT/SGPT) 34 Alkaline Phosphatase 130 H Total Protein 6.9 Albumin 3.8 Bedside Glucose 112 Medications Medications Current Medications Ondansetron HCl (Zofran Inj) 4 mg Q6H PRN IV NAUSEA AND/OR VOMITING Last administered on 01/05/17 02:20; Admin Dose 4 MG; Start 12/20/16 at 07:30 Acetaminophen (Tylenol Tab) 650 mg Q6H PRN PO PAIN LEVEL 1-3 OR FEVER Last administered on 01/11/17 19:27; Admin Dose 650 MG; Start 12/20/16 at 07:30 Morphine Sulfate (morphine) 4 mg Q4H PRN IV SEVERE PAIN LEVEL 7-10 Last administered on 01/12/17 11:23; Admin Dose 4 MG; Start 12/20/16 at 07:30 Amlodipine Besylate (Norvasc) 5 mg DAILY PO Last administered on 01/15/17 09:12 ; Admin Dose 5 MG; Start 12/21/16 at 09:00 Acetaminophen/ Hydrocodone Bitart ([place] (5/325)) 1 tab Q6H PRN PO PAIN LEVEL 7 -10 Last administered on 01/03/17 21:54; Admin Dose 1 TAB; Start 12/30/16 at 18 :00 Hydromorphone HCl (Dilaudid) 1 mg Q4H PRN IV SEVERE PAIN LEVEL 7-10 Last administered on 01/05/17 02:21; Admin Dose 1 MG; Start 01/02/17 at 17:45 Senna 1 tab 1 tab BID PO Last administered on 01/14/17 21:24; Admin Dose 1 TAB ; Start 01/03/17 at 21:00 Norepinephrine/ Dextrose (Levophed/D5W) 500 ml @ 1.87 mls/hr TITRATE IV Last administered on 01/05/17 09:13; Admin Dose 28.12 MLS/HR; Start 01/04/17 at 11: 00 Lorazepam (Ativan) 1 mg Q1H PRN IV Seizures Last administered on 01/12/17 14:31 ; Admin Dose 1 MG; Start 01/04/17 at 19:30 IV Flush (NS 10 ml) 10 ml PRN PRN IV FLUSH LINE; Start 01/04/17 at 20:00 Morphine Sulfate (morphine) 2 mg Q4H PRN IV pain Last administered on 01/15/17 11:28; Admin Dose 2 MG; Start 01/05/17 at 01:30 Pantoprazole (Protonix Iv) 40 mg DAILY@06 IV Last administered on 01/15/17 06: 12; Admin Dose 40 MG; Start 01/05/17 at 06:30 Lorazepam 1 mg 1 mg Q4H PRN IV agitation Last administered on 01/12/17 21:54; Admin Dose 1 MG; Start 01/05/17 at 07:00 Fentanyl (Sublimaze) 100 ml @ 2.5 mls/hr TITRATE IV Last administered on 15:27; Admin Dose 5 MLS/HR; Start 01/05/17 at 12:25 Hydralazine HCl 10 mg 10 mg Q2H PRN IV SBP >170 Last administered on 01/12/17 22:01; Admin Dose 10 MG; Start 01/06/17 at 03:00 Fluconazole/ Sodium Chloride 50 ml @ 50 mls/hr Q24H IVPB Last administered on 13:18; Admin Dose 50 MLS/HR; Start 01/07/17 at 12:00 Vancomycin HCl 750 mg/Sodium Chloride 150 ml @ 75 mls/hr Q12H IVPB Last administered on 01/15/17 11:28; Admin Dose 75 MLS/HR; Start 01/09/17 at 11:00 Piperacillin Sod/ Tazobactam Sod (Zosyn 3.375gm/ 100 ml (Pmx)) 100 ml @ 200 mls /hr Q6 IVPB Last administered on 01/15/17 11:29; Admin Dose 200 MLS/HR; Start 01/09/17 at 12:00 Docusate Sodium 100 mg 100 mg BID NGT Last administered on 01/14/17 21:24; Admin Dose 100 MG; Start 01/10/17 at 10:00 Potassium Chloride/Dextrose (KCl/D5W) 1,015 ml @ 50 mls/hr [id number] IV Last administered on 01/15/17 06:23; Admin Dose 100 MLS/HR; Start 01/11/17 at 07:00 Furosemide (Lasix) 20 mg Q8 IV Last administered on 01/15/17 13:29; Admin Dose 20 MG; Start 01/11/17 at 14:00 Methylprednisolone Sodium Succinate (Solu-Medrol) 40 mg DAILY IV Last administered on 01/15/17 09:09; Admin Dose 40 MG; Start 01/12/17 at 11:00 Insulin Glargine (Lantus) 10 unit HS SC ; Start 01/15/17 at 21:00 Diagnostic Test (Pha) (Accu-Chek) 1 ea 02 XX ; Start 01/16/17 at 02:00 Miscellaneous Information 1 ea NOTE XX ; Start 01/15/17 at 10:30 Glucose (Glutose) 15 gm Q15M PRN PO DECREASED GLUCOSE; Start 01/15/17 at 10:30 Glucose (Glutose) 22.5 gm Q15M PRN PO DECREASED GLUCOSE; Start 01/15/17 at 10:30 Dextrose (D50w Syringe) 25 ml Q15M PRN IV DECREASED GLUCOSE; Start 01/15/17 at 10:30 Dextrose (D50w Syringe) 50 ml Q15M PRN IV DECREASED GLUCOSE; Start 01/15/17 at 10:30 Glucagon (Glucagen) 1 mg Q15M PRN IM DECREASED GLUCOSE; Start 01/15/17 at 10:30 Glucose (Glutose) 15 gm Q15M PRN BUCCAL DECREASED GLUCOSE; Start 01/15/17 at 10: 30 Diphenhydramine HCl (Benadryl) 25 mg Q6H PRN IV SLEEP Last administered on t 13:29; Admin Dose 25 MG; Start 01/15/17 at 13:30 NARENDRA FINLEY NP Jan 15, 2017 15:12
[2017-01-15] MEDS ORDERED: INSULIN GLARGINE [LANtus] 3 ML PEN SC SCH (21:00)
[2017-01-16] VITALS (30 sets, daily range): BP systolic 121–151; BP diastolic 68–94; PULSE 62–106; RESP 15–24
[2017-01-16] MEDS: PIPER-TAZO 3.375 GM IV (PMX) 100 ML IVPB SCH ×5 (00:04→23:34)
[2017-01-16] MEDS ORDERED: ACCU-CHEK XX SCH (02:00)
[2017-01-16] MEDS: DIPHENHYDRAMINE 50 MG INJ IV PRN ×2 (02:47→23:33)
[2017-01-16] MEDS: POTASSIUM CHLORIDE 30 MEQ in DEXTROSE 5% 1,000 ML IV SCH (04:10)
[2017-01-16] MEDS: PANTOPRAZOLE 40 MG INJ IV SCH (05:38)
[2017-01-16] MEDS: FUROSEMIDE 20 MG INJ IV SCH ×3 (05:38→21:19)
[2017-01-16 05:45] LABS: ADD SCAN DIFF NO
[2017-01-16 05:52] LABS: BASOPHILS % 0.1 % (0.0-2.0); EOSINOPHILS % 0.2 % (0.0-7.0); HEMATOCRIT 34.4 % (37.0-47.0); HEMOGLOBIN 10.8 g/dl (12.0-16.0); LYMPHOCYTES # 0.7 10^3/ul (0.8-2.9); MEAN CORPUSCULAR HEMOGLOBIN 30.4 pg (29.0-33.0); MEAN CORPUSCULAR HGB CONC 31.4 g/dl (32.0-37.0); MEAN CORPUSCULAR VOLUME 96.9 fl (82.0-101.0); MEAN PLATELET VOLUME 11.5 fl (7.4-10.4); MONOCYTES % 7.8 % (0.0-11.0); NEUTROPHIL # 10.6 10^3/ul (1.6-7.5); NEUTROPHILS % 85.4 % (39.0-77.0); PLATELET COUNT 399 10^3/UL (140-415); RED BLOOD COUNT 3.55 10^6/ul (4.20-5.40); RED CELL DISTRIBUTION WIDTH 19.4 % (11.5-14.5); WHITE BLOOD COUNT 12.4 10^3/ul (4.8-10.8)
[2017-01-16 06:15] LABS: CALCIUM 9.1 mg/dl (8.4-10.2); CREATININE 0.55 mg/dl (0.44-1.00); MAGNESIUM 1.9 mg/dl (1.7-2.5); PHOSPHORUS 2.7 mg/dl (2.5-4.9); POTASSIUM 3.1 mmol/L (3.5-5.1)
[2017-01-16] MEDS: INSULIN ASPART [NOVOLOG] 3 ML PEN SC SCH ×3 (07:35→17:07)
--- NOTE | 2017-01-16 07:36 | RADRPT ---
PROCEDURE: XR Chest. CLINICAL INDICATION: Shortness of breath TECHNIQUE: A single AP view of the chest was obtained. COMPARISON: Chest x-ray dated 01/14/2017 FINDINGS: There is a left upper extremity PICC line with tip near the cavoatrial junction. Lung volumes are low with compressive changes, vascular crowding and basilar atelectasis. No focal a irspace opacity, pleural effusion or pneumothorax is seen. The cardiomediastinal silhouette is with in normal limits for size. The osseous structures are unremarkable. IMPRESSION: 1. Low lung volumes with compressive changes and basilar atelectasis. No significant interval munoz e. 2. Left upper extremity PICC line with tip near the cavoatrial junction RPTAT: HH .Jasmina Harrison MD, Date Time Electronically viewed and signed by .Jasmina Harrison MD, on 01/16/2017 07:36 .G/
[2017-01-16] MEDS ORDERED: POTASSIUM CHLORIDE (SR) 20 MEQ TAB PO STA (07:58)
--- NOTE | 2017-01-16 08:01 | PN ---
Date/Time of Note Date/Time of Note DATE: 01/16/17 TIME: 08:00 Assessment/Plan Lines/Catheters IV Catheter Type (from [facility] PICC Line Urinary Cath still in place: Yes Assessment/Plan Chief Complaint/Hosp Course 1. Nonoliguric acute kidney injury with previously normal baseline creatinine. Etiology secondary to acute tubular necrosis due to severe anemia, ischemic hypoperfusion, shock. - Patient's renal function has stabilized, - continue current treatment plan, supportive care, renally dose all medications. 2. s/p intra-abdominal bleed. -Hemoglobin levels have been stable. Continue to monitor 3. Volume overload. Improving continue t diuretic therapy as needed. 4. Hypernatremia -Improved Continue- D5W decrease rate -Monitor serial sodium levels 3. Mineral bone disease. Will continue to monitor calcium, phosphorus levels. Replace phosphorus 4. hypokalemia/hypomagnesemia. Monitor and replace as needed 5. Sepsis. status post shock, currently off pressor support. Continue current antibiotic regimen. 6. Hypoxemic respiratory failure. Patient BIPAP. Continue to monitor. Follow -up with pulmonary. CT angiogram showed no evidence of PE 7. Portal vein thrombosis. 8. Multiple liver lesions status post biopsy. Findings consistent with possible lymphoplasmacytic involvement will continue to monitor. Follow up with hematology. 9. Uterine mass. Followup with Gynecology/Oncology. Status post code arrest. Problems: Subjective 24 Hr Interval Summary Free Text/Dictation Patient critical but stable. Remains on BiPAP. Tolerating p.o.'s. No other events noted overnight. Exam/Review of Systems Vital Signs Vitals Vital Signs Date Time Temp Pulse Resp B/P Pulse Ox O2 Delivery O2 Flow Rate FiO2 01/16/17 07:00 97.7 67 16 130/70 99 BIPAP 01/16/17 05:10 30 01/15/17 18:00 4.0 Intake and Output 01/15/17 01/15/17 01/16/17 15:00 23:00 07:00 Intake Total 1864.54 ml 640 ml 840 ml Output Total 1875 ml 450 ml 2750 ml Balance -10.46 ml 190 ml -1910 ml Exam HEENT: Head is normocephalic. NECK: Supple. HEART: Irregular LUNGS: Show diminished breath sounds at base. ABDOMEN: Soft, nontender to palpation without rebound or guarding. EXTREMITIES: Negative for clubbing, cyanosis. DERMATOLOGIC: No rashes. MUSCULOSKELETAL: No joint effusions NEUROLOGIC: No change in exam. Results Result Diagram: 01/16/17 0415 01/16/17 0415 Results 24 hrs Laboratory Tests Test 01/15/17 11:30 01/15/17 17:17 01/15/17 20:09 01/16/17 04:15 Bedside Glucose 112 107 122 White Blood Count 12.4 H Red Blood Count 3.55 L Hemoglobin 10.8 L Hematocrit 34.4 L Mean Corpuscular Volume 96.9 Mean Corpuscular Hemoglobin 30.4 Mean Corpuscular Hemoglobin Concent 31.4 L Red Cell Distribution Width 19.4 H Platelet Count 399 Mean Platelet Volume 11.5 H Neutrophils % 85.4 H Lymphocytes % 6.0 L Monocytes % 7.8 Eosinophils % 0.2 Basophils % 0.1 Nucleated Red Blood Cells % 0.0 Neutrophils # 10.6 H Lymphocytes # 0.7 L Monocytes # 1.0 H Eosinophils # 0.0 Basophils # 0.0 Nucleated Red Blood Cells # 0.0 Sodium Level 143 Potassium Level 3.1 L Chloride Level 98 Carbon Dioxide Level 33 H Anion Gap 15 Blood Urea Nitrogen 21 H Creatinine 0.55 Glucose Level 94 # Calcium Level 9.1 Phosphorus Level 2.7 Magnesium Level 1.9 Medications Medications Current Medications Ondansetron HCl (Zofran Inj) 4 mg Q6H PRN IV NAUSEA AND/OR VOMITING Last administered on 01/05/17 02:20; Admin Dose 4 MG; Start 12/20/16 at 07:30 Acetaminophen (Tylenol Tab) 650 mg Q6H PRN PO PAIN LEVEL 1-3 OR FEVER Last administered on 01/11/17 19:27; Admin Dose 650 MG; Start 12/20/16 at 07:30 Morphine Sulfate (morphine) 4 mg Q4H PRN IV SEVERE PAIN LEVEL 7-10 Last administered on 01/12/17 11:23; Admin Dose 4 MG; Start 12/20/16 at 07:30 Amlodipine Besylate (Norvasc) 5 mg DAILY PO Last administered on 01/15/17 09:12 ; Admin Dose 5 MG; Start 12/21/16 at 09:00 Acetaminophen/ Hydrocodone Bitart ([place] (5/325)) 1 tab Q6H PRN PO PAIN LEVEL 7 -10 Last administered on 01/03/17 21:54; Admin Dose 1 TAB; Start 12/30/16 at 18 :00 Hydromorphone HCl (Dilaudid) 1 mg Q4H PRN IV SEVERE PAIN LEVEL 7-10 Last administered on 01/05/17 02:21; Admin Dose 1 MG; Start 01/02/17 at 17:45 Senna 1 tab 1 tab BID PO Last administered on 01/15/17 20:29; Admin Dose 1 TAB ; Start 01/03/17 at 21:00 Norepinephrine/ Dextrose (Levophed/D5W) 500 ml @ 1.87 mls/hr TITRATE IV Last administered on 01/05/17 09:13; Admin Dose 28.12 MLS/HR; Start 01/04/17 at 11: 00 Lorazepam (Ativan) 1 mg Q1H PRN IV Seizures Last administered on 01/12/17 14:31 ; Admin Dose 1 MG; Start 01/04/17 at 19:30 IV Flush (NS 10 ml) 10 ml PRN PRN IV FLUSH LINE; Start 01/04/17 at 20:00 Morphine Sulfate (morphine) 2 mg Q4H PRN IV pain Last administered on 01/15/17 11:28; Admin Dose 2 MG; Start 01/05/17 at 01:30 Pantoprazole (Protonix Iv) 40 mg DAILY@06 IV Last administered on 01/16/17 05: 38; Admin Dose 40 MG; Start 01/05/17 at 06:30 Lorazepam 1 mg 1 mg Q4H PRN IV agitation Last administered on 01/12/17 21:54; Admin Dose 1 MG; Start 01/05/17 at 07:00 Fentanyl (Sublimaze) 100 ml @ 2.5 mls/hr TITRATE IV Last administered on 15:27; Admin Dose 5 MLS/HR; Start 01/05/17 at 12:25 Hydralazine HCl 10 mg 10 mg Q2H PRN IV SBP >170 Last administered on 01/12/17 22:01; Admin Dose 10 MG; Start 01/06/17 at 03:00 Fluconazole/ Sodium Chloride 50 ml @ 50 mls/hr Q24H IVPB Last administered on 13:18; Admin Dose 50 MLS/HR; Start 01/07/17 at 12:00 Vancomycin HCl 750 mg/Sodium Chloride 150 ml @ 75 mls/hr Q12H IVPB Last administered on 01/15/17 22:04; Admin Dose 75 MLS/HR; Start 01/09/17 at 11:00 Piperacillin Sod/ Tazobactam Sod (Zosyn 3.375gm/ 100 ml (Pmx)) 100 ml @ 200 mls /hr Q6 IVPB Last administered on 01/16/17 05:38; Admin Dose 200 MLS/HR; Start 01/09/17 at 12:00 Docusate Sodium 100 mg 100 mg BID NGT Last administered on 01/14/17 21:24; Admin Dose 100 MG; Start 01/10/17 at 10:00 Potassium Chloride/Dextrose (KCl/D5W) 1,015 ml @ 50 mls/hr [id number] IV Last administered on 01/16/17 04:10; Admin Dose 50 MLS/HR; Start 01/11/17 at 07:00 Furosemide (Lasix) 20 mg Q8 IV Last administered on 01/16/17 05:38; Admin Dose 20 MG; Start 01/11/17 at 14:00 Methylprednisolone Sodium Succinate (Solu-Medrol) 40 mg DAILY IV Last administered on 01/15/17 09:09; Admin Dose 40 MG; Start 01/12/17 at 11:00 Insulin Glargine (Lantus) 10 unit HS SC ; Start 01/15/17 at 21:00 Diagnostic Test (Pha) (Accu-Chek) 1 ea 02 XX ; Start 01/16/17 at 02:00 Miscellaneous Information 1 ea NOTE XX ; Start 01/15/17 at 10:30 Glucose (Glutose) 15 gm Q15M PRN PO DECREASED GLUCOSE; Start 01/15/17 at 10:30 Glucose (Glutose) 22.5 gm Q15M PRN PO DECREASED GLUCOSE; Start 01/15/17 at 10:30 Dextrose (D50w Syringe) 25 ml Q15M PRN IV DECREASED GLUCOSE; Start 01/15/17 at 10:30 Dextrose (D50w Syringe) 50 ml Q15M PRN IV DECREASED GLUCOSE; Start 01/15/17 at 10:30 Glucagon (Glucagen) 1 mg Q15M PRN IM DECREASED GLUCOSE; Start 01/15/17 at 10:30 Glucose (Glutose) 15 gm Q15M PRN BUCCAL DECREASED GLUCOSE; Start 01/15/17 at 10: 30 Diphenhydramine HCl (Benadryl) 25 mg Q6H PRN IV SLEEP Last administered on 02:47; Admin Dose 25 MG; Start 01/15/17 at 13:30 MILLY DAIGLE DO Jan 16, 2017 08:01
[2017-01-16] MEDS: AMLODIPINE 5 MG TAB PO SCH (08:35)
[2017-01-16] MEDS: SENNA TAB PO SCH ×2 (08:35→21:00)
[2017-01-16] MEDS: DOCUSATE SODIUM 10 MG/ML (10ML CUP) NGT SCH (08:35)
[2017-01-16] MEDS: METHYLPREDNISOLONE 40 MG INJ IV SCH (08:36)
--- NOTE | 2017-01-16 10:16 | CONS ---
Date/Time of Note Date/Time of Note DATE: 01/16/17 TIME: 10:15 Consult Date/Type/Reason Admit Date/Time Dec 19, 2016 at 21:34 Initial Consult Date 12/20/16 Type of Consultation: Pulmonary ICU Ordering Provider: KAHLIL MARTEL Subjective Patient appears more comfortable this morning sitting up in bed eating on nasal cannula oxygen Objective Vital Signs Date Time Temp Pulse Resp B/P Pulse Ox O2 Delivery O2 Flow Rate FiO2 01/16/17 09:00 77 18 145/82 01/16/17 08:00 96 01/16/17 07:00 97.7 BIPAP 01/16/17 05:10 30 01/15/17 18:00 4.0 Intake and Output 01/15/17 01/15/17 01/16/17 15:00 23:00 07:00 Intake Total 1864.54 ml 640 ml 890 ml Output Total 1875 ml 450 ml 2750 ml Balance -10.46 ml 190 ml -1860 ml Exam Events GENERAL: Well-nourished well-developed lady comfortable VITAL SIGNS: per chart NECK: Supple. No JVD or lymphadenopathy. CARDIAC EXAM: S1, S2. No added sounds or murmurs. CHEST: clear bilaterally, No added sounds, rales or wheezes ABDOMEN: Soft, nontender. No guarding or rebound. Mild distention EXTREMITIES: No cyanosis, clubbing or edema. NEUROLOGIC: Generalized weakness. No focal deficits. Results/Medications Result Diagram: 01/16/17 0415 01/16/17 0415 Results 24 hrs Laboratory Tests Test 01/15/17 11:30 01/15/17 17:17 01/15/17 20:09 01/16/17 04:15 Bedside Glucose 112 107 122 White Blood Count 12.4 H Red Blood Count 3.55 L Hemoglobin 10.8 L Hematocrit 34.4 L Mean Corpuscular Volume 96.9 Mean Corpuscular Hemoglobin 30.4 Mean Corpuscular Hemoglobin Concent 31.4 L Red Cell Distribution Width 19.4 H Platelet Count 399 Mean Platelet Volume 11.5 H Neutrophils % 85.4 H Lymphocytes % 6.0 L Monocytes % 7.8 Eosinophils % 0.2 Basophils % 0.1 Nucleated Red Blood Cells % 0.0 Neutrophils # 10.6 H Lymphocytes # 0.7 L Monocytes # 1.0 H Eosinophils # 0.0 Basophils # 0.0 Nucleated Red Blood Cells # 0.0 Sodium Level 143 Potassium Level 3.1 L Chloride Level 98 Carbon Dioxide Level 33 H Anion Gap 15 Blood Urea Nitrogen 21 H Creatinine 0.55 Glucose Level 94 # Calcium Level 9.1 Phosphorus Level 2.7 Magnesium Level 1.9 Test 01/16/17 08:04 01/16/17 08:34 Lab Scanned Report REFERENCE LAB Bedside Glucose 91 Medications Current Medications Ondansetron HCl (Zofran Inj) 4 mg Q6H PRN IV NAUSEA AND/OR VOMITING Last administered on 01/05/17 02:20; Admin Dose 4 MG; Start 12/20/16 at 07:30 Acetaminophen (Tylenol Tab) 650 mg Q6H PRN PO PAIN LEVEL 1-3 OR FEVER Last administered on 01/11/17 19:27; Admin Dose 650 MG; Start 12/20/16 at 07:30 Morphine Sulfate (morphine) 4 mg Q4H PRN IV SEVERE PAIN LEVEL 7-10 Last administered on 01/12/17 11:23; Admin Dose 4 MG; Start 12/20/16 at 07:30 Amlodipine Besylate (Norvasc) 5 mg DAILY PO Last administered on 01/16/17 08:35 ; Admin Dose 5 MG; Start 12/21/16 at 09:00 Acetaminophen/ Hydrocodone Bitart ([place] (5/325)) 1 tab Q6H PRN PO PAIN LEVEL 7 -10 Last administered on 01/03/17 21:54; Admin Dose 1 TAB; Start 12/30/16 at 18 :00 Hydromorphone HCl (Dilaudid) 1 mg Q4H PRN IV SEVERE PAIN LEVEL 7-10 Last administered on 01/05/17 02:21; Admin Dose 1 MG; Start 01/02/17 at 17:45 Senna (Senokot) 1 tab BID PO Last administered on 01/16/17 08:35; Admin Dose 1 TAB; Start 01/03/17 at 21:00 Lorazepam (Ativan) 1 mg Q1H PRN IV Seizures Last administered on 01/12/17 14:31 ; Admin Dose 1 MG; Start 01/04/17 at 19:30 IV Flush (NS 10 ml) 10 ml PRN PRN IV FLUSH LINE; Start 01/04/17 at 20:00 Morphine Sulfate (morphine) 2 mg Q4H PRN IV pain Last administered on 01/15/17 11:28; Admin Dose 2 MG; Start 01/05/17 at 01:30 Pantoprazole (Protonix Iv) 40 mg DAILY@06 IV Last administered on 01/16/17 05: 38; Admin Dose 40 MG; Start 01/05/17 at 06:30 Lorazepam (Ativan) 1 mg Q4H PRN IV agitation Last administered on 01/12/17 21: 54; Admin Dose 1 MG; Start 01/05/17 at 07:00 Hydralazine HCl 10 mg 10 mg Q2H PRN IV SBP >170 Last administered on 01/12/17 22:01; Admin Dose 10 MG; Start 01/06/17 at 03:00 Fluconazole/ Sodium Chloride 50 ml @ 50 mls/hr Q24H IVPB Last administered on 13:18; Admin Dose 50 MLS/HR; Start 01/07/17 at 12:00 Vancomycin HCl 750 mg/Sodium Chloride 150 ml @ 75 mls/hr Q12H IVPB Last administered on 01/15/17 22:04; Admin Dose 75 MLS/HR; Start 01/09/17 at 11:00 Piperacillin Sod/ Tazobactam Sod 100 ml @ 200 mls/hr Q6 IVPB Last administered on 01/16/17 05:38; Admin Dose 200 MLS/HR; Start 01/09/17 at 12:00 Potassium Chloride/Dextrose (KCl/D5W) 1,015 ml @ 50 mls/hr [id number] IV Last administered on 01/16/17 04:10; Admin Dose 50 MLS/HR; Start 01/11/17 at 07:00 Furosemide (Lasix) 20 mg Q8 IV Last administered on 01/16/17 05:38; Admin Dose 20 MG; Start 01/11/17 at 14:00 Methylprednisolone Sodium Succinate (Solu-Medrol) 40 mg DAILY IV Last administered on 01/16/17 08:36; Admin Dose 40 MG; Start 01/12/17 at 11:00 Insulin Glargine (Lantus) 10 unit HS SC ; Start 01/15/17 at 21:00 Diagnostic Test (Pha) (Accu-Chek) 1 ea 02 XX ; Start 01/16/17 at 02:00 Miscellaneous Information 1 ea NOTE XX ; Start 01/15/17 at 10:30 Glucose (Glutose) 15 gm Q15M PRN PO DECREASED GLUCOSE; Start 01/15/17 at 10:30 Glucose (Glutose) 22.5 gm Q15M PRN PO DECREASED GLUCOSE; Start 01/15/17 at 10:30 Dextrose (D50w Syringe) 25 ml Q15M PRN IV DECREASED GLUCOSE; Start 01/15/17 at 10:30 Dextrose (D50w Syringe) 50 ml Q15M PRN IV DECREASED GLUCOSE; Start 01/15/17 at 10:30 Glucagon (Glucagen) 1 mg Q15M PRN IM DECREASED GLUCOSE; Start 01/15/17 at 10:30 Glucose (Glutose) 15 gm Q15M PRN BUCCAL DECREASED GLUCOSE; Start 01/15/17 at 10: 30 Diphenhydramine HCl (Benadryl) 25 mg Q6H PRN IV SLEEP Last administered on t 02:47; Admin Dose 25 MG; Start 01/15/17 at 13:30 Docusate Sodium (Colace) 100 mg BID PO ; Start 01/16/17 at 21:00 Assessment/Plan Chief Complaint/Hosp Course IMP: 1. Status post septic Shock 2. Respiratory Failure secondary to hypoventilation from abdominal distention. Low lung volumes resulting in hypercapnia and hypoxemic respiratory failure 3. Encephalopathy, toxic metabolic improving 4. s/p GRICELDA 5. 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 Steroid exacerbated hyperglycemia RECS: 1. Continue BiPAP as needed., decrease as tolerated 2. Diuresis to continue 3. Continue corticosteroids for possible IgG4-related disease 4. Replete electrolytes 5. Encourage out of bed. Discussed with staff patient with claim professional at bedside. Patient stable to transfer to telemetry Problems: JAS[facility] ROUSE [facility], [facility] Jan 16, 2017 10:16
[2017-01-16] MEDS: VANCOMYCIN 750 MG in SOD CHLORIDE 0.9% 150 ML IVPB SCH (10:47)
[2017-01-16] MEDS: FLUCONAZOLE 100 MG/NS (PMX) 50 ML IVPB SCH (11:14)
[2017-01-16] MEDS: morphine 2 MG INJ IV PRN ×2 (11:23→23:34)
--- NOTE | 2017-01-16 11:46 | CONS ---
Date/Time of Note Date/Time of Note DATE: 01/16/17 TIME: 11:45 Assessment/Plan Assessment/Plan Chief Complaint/Hosp Course No acute events overnight, patient is comfortable on nasal cannula, alert denies pain discomfort, family at bedside Vital signs: Temperature 97.7, pulse 74 respirations 20 blood pressure 133/72 saturation 100% Laboratory data: WBC 12.4 H&H 10.8 and 34.4 platelets 399, neutrophils 85.4 BUN 21 creatinine 0.55 Indwelling's: Lau catheter PICC line Diagnostic: Chest x-ray this morning revealed low lung volumes with compressive changes and basilar atelectasis Antimicrobials: Zosyn vancomycin fluconazole day #10 Physical examination: Morbidly obese, well-developed middle-aged woman who is alert in no distress. Head atraumatic normocephalic, sclera nonicteric. Neck is obese, trachea midline. Chest rise symmetrical breath sounds diminished basis. Heart S1-S2. Abdomen soft distended bowel tones hypoactive. Extremities with trace edema Assessment: 1. Acute respiratory failure 2. Healthcare associated pneumonia 3. Status post hepatic hemorrhage secondary to liver biopsy 4. 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 Hepatic and portal vein thrombosis 6. Status post streptococcal bacteremia on admission with repeat blood cultures being negative 7. Uterine lesion, possibly malignant Plan: Overall improving, continue antibiotics, follow recommendations of consultants, encourage increased activity Discussed with staff Discussed with family at bedside Problems: Consultation Date/Type/Reason Admit Date/Time Dec 19, 2016 at 21:34 Initial Consult Date 12/20/16 Type of Consultation: ID Referring Provider: KAHLIL MARTEL Exam/Review of Systems Vital Signs Vitals Vital Signs Date Time Temp Pulse Resp B/P Pulse Ox O2 Delivery O2 Flow Rate FiO2 01/16/17 11:15 30 01/16/17 11:00 74 23 133/72 100 01/16/17 09:30 Nasal Cannula 01/16/17 07:00 97.7 01/15/17 18:00 4.0 Intake and Output 01/15/17 01/15/17 01/16/17 15:00 23:00 07:00 Intake Total 1864.54 ml 640 ml 890 ml Output Total 1875 ml 450 ml 2750 ml Balance -10.46 ml 190 ml -1860 ml Results Result Diagram: 01/16/17 0415 01/16/17 0415 Results 24 hrs Laboratory Tests Test 01/15/17 17:17 01/15/17 20:09 01/16/17 04:15 01/16/17 08:04 Bedside Glucose 107 122 White Blood Count 12.4 H Red Blood Count 3.55 L Hemoglobin 10.8 L Hematocrit 34.4 L Mean Corpuscular Volume 96.9 Mean Corpuscular Hemoglobin 30.4 Mean Corpuscular Hemoglobin Concent 31.4 L Red Cell Distribution Width 19.4 H Platelet Count 399 Mean Platelet Volume 11.5 H Neutrophils % 85.4 H Lymphocytes % 6.0 L Monocytes % 7.8 Eosinophils % 0.2 Basophils % 0.1 Nucleated Red Blood Cells % 0.0 Neutrophils # 10.6 H Lymphocytes # 0.7 L Monocytes # 1.0 H Eosinophils # 0.0 Basophils # 0.0 Nucleated Red Blood Cells # 0.0 Sodium Level 143 Potassium Level 3.1 L Chloride Level 98 Carbon Dioxide Level 33 H Anion Gap 15 Blood Urea Nitrogen 21 H Creatinine 0.55 Glucose Level 94 # Calcium Level 9.1 Phosphorus Level 2.7 Magnesium Level 1.9 Lab Scanned Report REFERENCE LAB Test 01/16/17 08:34 01/16/17 11:33 01/16/17 11:36 Bedside Glucose 91 113 Lab Scanned Report REFERENCE LAB Medications Medications Current Medications Ondansetron HCl (Zofran Inj) 4 mg Q6H PRN IV NAUSEA AND/OR VOMITING Last administered on 01/05/17 02:20; Admin Dose 4 MG; Start 12/20/16 at 07:30 Acetaminophen (Tylenol Tab) 650 mg Q6H PRN PO PAIN LEVEL 1-3 OR FEVER Last administered on 01/11/17 19:27; Admin Dose 650 MG; Start 12/20/16 at 07:30 Morphine Sulfate (morphine) 4 mg Q4H PRN IV SEVERE PAIN LEVEL 7-10 Last administered on 01/12/17 11:23; Admin Dose 4 MG; Start 12/20/16 at 07:30 Amlodipine Besylate (Norvasc) 5 mg DAILY PO Last administered on 01/16/17 08:35 ; Admin Dose 5 MG; Start 12/21/16 at 09:00 Acetaminophen/ Hydrocodone Bitart ([place] (5/325)) 1 tab Q6H PRN PO PAIN LEVEL 7 -10 Last administered on 01/03/17 21:54; Admin Dose 1 TAB; Start 12/30/16 at 18 :00 Hydromorphone HCl (Dilaudid) 1 mg Q4H PRN IV SEVERE PAIN LEVEL 7-10 Last administered on 01/05/17 02:21; Admin Dose 1 MG; Start 01/02/17 at 17:45 Senna (Senokot) 1 tab BID PO Last administered on 01/16/17 08:35; Admin Dose 1 TAB; Start 01/03/17 at 21:00 Lorazepam (Ativan) 1 mg Q1H PRN IV Seizures Last administered on 01/12/17 14:31 ; Admin Dose 1 MG; Start 01/04/17 at 19:30 IV Flush (NS 10 ml) 10 ml PRN PRN IV FLUSH LINE; Start 01/04/17 at 20:00 Morphine Sulfate (morphine) 2 mg Q4H PRN IV pain Last administered on 01/16/17 11:23; Admin Dose 2 MG; Start 01/05/17 at 01:30 Pantoprazole (Protonix Iv) 40 mg DAILY@06 IV Last administered on 01/16/17 05: 38; Admin Dose 40 MG; Start 01/05/17 at 06:30 Lorazepam (Ativan) 1 mg Q4H PRN IV agitation Last administered on 01/12/17 21: 54; Admin Dose 1 MG; Start 01/05/17 at 07:00 Hydralazine HCl 10 mg 10 mg Q2H PRN IV SBP >170 Last administered on 01/12/17 22:01; Admin Dose 10 MG; Start 01/06/17 at 03:00 Fluconazole/ Sodium Chloride 50 ml @ 50 mls/hr Q24H IVPB Last administered on 11:14; Admin Dose 50 MLS/HR; Start 01/07/17 at 12:00 Vancomycin HCl 750 mg/Sodium Chloride 150 ml @ 75 mls/hr Q12H IVPB Last administered on 01/16/17 10:47; Admin Dose 75 MLS/HR; Start 01/09/17 at 11:00 Piperacillin Sod/ Tazobactam Sod 100 ml @ 200 mls/hr Q6 IVPB Last administered on 01/16/17 05:38; Admin Dose 200 MLS/HR; Start 01/09/17 at 12:00 Potassium Chloride/Dextrose (KCl/D5W) 1,015 ml @ 50 mls/hr [id number] IV Last administered on 01/16/17 04:10; Admin Dose 50 MLS/HR; Start 01/11/17 at 07:00 Furosemide (Lasix) 20 mg Q8 IV Last administered on 01/16/17 05:38; Admin Dose 20 MG; Start 01/11/17 at 14:00 Methylprednisolone Sodium Succinate (Solu-Medrol) 40 mg DAILY IV Last administered on 01/16/17 08:36; Admin Dose 40 MG; Start 01/12/17 at 11:00 Insulin Glargine (Lantus) 10 unit HS SC ; Start 01/15/17 at 21:00 Diagnostic Test (Pha) (Accu-Chek) 1 ea 02 XX ; Start 01/16/17 at 02:00 Miscellaneous Information 1 ea NOTE XX ; Start 01/15/17 at 10:30 Glucose (Glutose) 15 gm Q15M PRN PO DECREASED GLUCOSE; Start 01/15/17 at 10:30 Glucose (Glutose) 22.5 gm Q15M PRN PO DECREASED GLUCOSE; Start 01/15/17 at 10:30 Dextrose (D50w Syringe) 25 ml Q15M PRN IV DECREASED GLUCOSE; Start 01/15/17 at 10:30 Dextrose (D50w Syringe) 50 ml Q15M PRN IV DECREASED GLUCOSE; Start 01/15/17 at 10:30 Glucagon (Glucagen) 1 mg Q15M PRN IM DECREASED GLUCOSE; Start 01/15/17 at 10:30 Glucose (Glutose) 15 gm Q15M PRN BUCCAL DECREASED GLUCOSE; Start 01/15/17 at 10: 30 Diphenhydramine HCl (Benadryl) 25 mg Q6H PRN IV SLEEP Last administered on 02:47; Admin Dose 25 MG; Start 01/15/17 at 13:30 Docusate Sodium (Colace) 100 mg BID PO ; Start 01/16/17 at 21:00 NANCY HULL NP Jan 16, 2017 11:45
--- NOTE | 2017-01-16 12:18 | PN ---
Date/Time of Note Date/Time of Note DATE: 01/16/17 TIME: 12:12 Assessment/Plan VTE Prophylaxis VTE Prophylaxis Intervention: other (per primary MD) Lines/Catheters IV Catheter Type (from Nrsg): PICC Line Central line still needed: Yes Urinary Cath still in place: Yes Reason Cath still needed: other (indicate) (weakness) Assessment/Plan Assessment/Plan As previously noted, the path did not show a malignancy. No new suggestions. Uterine lesion not yet evaluated but unlikely to be a contributing issue. Recheck LFT's in AM. Subjective 24 Hr Interval Summary Free Text/Dictation Pt is sleeping comfortably at this time. Exam/Review of Systems Vital Signs Vitals Vital Signs Date Time Temp Pulse Resp B/P Pulse Ox O2 Delivery O2 Flow Rate FiO2 01/16/17 11:15 30 01/16/17 11:00 74 23 133/72 100 01/16/17 09:30 Nasal Cannula 01/16/17 07:00 97.7 01/15/17 18:00 4.0 Intake and Output 01/15/17 01/15/17 01/16/17 15:00 23:00 07:00 Intake Total 1864.54 ml 640 ml 890 ml Output Total 1875 ml 450 ml 2750 ml Balance -10.46 ml 190 ml -1860 ml Exam Constitutional: other (sleeping) Neck: other (obese) Respiratory: other (BiPAP in place. no respiratory distress) Cardiovascular: regular rate and rhythm Results Result Diagram: 01/16/17 0415 01/16/17 0415 Results 24 hrs Laboratory Tests Test 01/15/17 17:17 01/15/17 20:09 01/16/17 04:15 01/16/17 08:04 Bedside Glucose 107 122 White Blood Count 12.4 H Red Blood Count 3.55 L Hemoglobin 10.8 L Hematocrit 34.4 L Mean Corpuscular Volume 96.9 Mean Corpuscular Hemoglobin 30.4 Mean Corpuscular Hemoglobin Concent 31.4 L Red Cell Distribution Width 19.4 H Platelet Count 399 Mean Platelet Volume 11.5 H Neutrophils % 85.4 H Lymphocytes % 6.0 L Monocytes % 7.8 Eosinophils % 0.2 Basophils % 0.1 Nucleated Red Blood Cells % 0.0 Neutrophils # 10.6 H Lymphocytes # 0.7 L Monocytes # 1.0 H Eosinophils # 0.0 Basophils # 0.0 Nucleated Red Blood Cells # 0.0 Sodium Level 143 Potassium Level 3.1 L Chloride Level 98 Carbon Dioxide Level 33 H Anion Gap 15 Blood Urea Nitrogen 21 H Creatinine 0.55 Glucose Level 94 # Calcium Level 9.1 Phosphorus Level 2.7 Magnesium Level 1.9 Lab Scanned Report REFERENCE LAB Test 01/16/17 08:34 01/16/17 11:33 01/16/17 11:36 Bedside Glucose 91 113 Lab Scanned Report REFERENCE LAB Medications Medications Current Medications Ondansetron HCl (Zofran Inj) 4 mg Q6H PRN IV NAUSEA AND/OR VOMITING Last administered on 01/05/17 02:20; Admin Dose 4 MG; Start 12/20/16 at 07:30 Acetaminophen (Tylenol Tab) 650 mg Q6H PRN PO PAIN LEVEL 1-3 OR FEVER Last administered on 01/11/17 19:27; Admin Dose 650 MG; Start 12/20/16 at 07:30 Morphine Sulfate (morphine) 4 mg Q4H PRN IV SEVERE PAIN LEVEL 7-10 Last administered on 01/12/17 11:23; Admin Dose 4 MG; Start 12/20/16 at 07:30 Amlodipine Besylate (Norvasc) 5 mg DAILY PO Last administered on 01/16/17 08:35 ; Admin Dose 5 MG; Start 12/21/16 at 09:00 Acetaminophen/ Hydrocodone Bitart ([place] (5/325)) 1 tab Q6H PRN PO PAIN LEVEL 7 -10 Last administered on 01/03/17 21:54; Admin Dose 1 TAB; Start 12/30/16 at 18 :00 Hydromorphone HCl (Dilaudid) 1 mg Q4H PRN IV SEVERE PAIN LEVEL 7-10 Last administered on 01/05/17 02:21; Admin Dose 1 MG; Start 01/02/17 at 17:45 Senna (Senokot) 1 tab BID PO Last administered on 01/16/17 08:35; Admin Dose 1 TAB; Start 01/03/17 at 21:00 Lorazepam (Ativan) 1 mg Q1H PRN IV Seizures Last administered on 01/12/17 14:31 ; Admin Dose 1 MG; Start 01/04/17 at 19:30 IV Flush (NS 10 ml) 10 ml PRN PRN IV FLUSH LINE; Start 01/04/17 at 20:00 Morphine Sulfate (morphine) 2 mg Q4H PRN IV pain Last administered on 01/16/17 11:23; Admin Dose 2 MG; Start 01/05/17 at 01:30 Pantoprazole (Protonix Iv) 40 mg DAILY@06 IV Last administered on 01/16/17 05: 38; Admin Dose 40 MG; Start 01/05/17 at 06:30 Lorazepam (Ativan) 1 mg Q4H PRN IV agitation Last administered on 01/12/17 21: 54; Admin Dose 1 MG; Start 01/05/17 at 07:00 Hydralazine HCl 10 mg 10 mg Q2H PRN IV SBP >170 Last administered on 01/12/17 22:01; Admin Dose 10 MG; Start 01/06/17 at 03:00 Fluconazole/ Sodium Chloride 50 ml @ 50 mls/hr Q24H IVPB Last administered on 11:14; Admin Dose 50 MLS/HR; Start 01/07/17 at 12:00 Vancomycin HCl 750 mg/Sodium Chloride 150 ml @ 75 mls/hr Q12H IVPB Last administered on 01/16/17 10:47; Admin Dose 75 MLS/HR; Start 01/09/17 at 11:00 Piperacillin Sod/ Tazobactam Sod 100 ml @ 200 mls/hr Q6 IVPB Last administered on 01/16/17 05:38; Admin Dose 200 MLS/HR; Start 01/09/17 at 12:00 Potassium Chloride/Dextrose (KCl/D5W) 1,015 ml @ 50 mls/hr [id number] IV Last administered on 01/16/17 04:10; Admin Dose 50 MLS/HR; Start 01/11/17 at 07:00 Furosemide (Lasix) 20 mg Q8 IV Last administered on 01/16/17 05:38; Admin Dose 20 MG; Start 01/11/17 at 14:00 Methylprednisolone Sodium Succinate (Solu-Medrol) 40 mg DAILY IV Last administered on 01/16/17 08:36; Admin Dose 40 MG; Start 01/12/17 at 11:00 Insulin Glargine (Lantus) 10 unit HS SC ; Start 01/15/17 at 21:00 Diagnostic Test (Pha) (Accu-Chek) 1 ea 02 XX ; Start 01/16/17 at 02:00 Miscellaneous Information 1 ea NOTE XX ; Start 01/15/17 at 10:30 Glucose (Glutose) 15 gm Q15M PRN PO DECREASED GLUCOSE; Start 01/15/17 at 10:30 Glucose (Glutose) 22.5 gm Q15M PRN PO DECREASED GLUCOSE; Start 01/15/17 at 10:30 Dextrose (D50w Syringe) 25 ml Q15M PRN IV DECREASED GLUCOSE; Start 01/15/17 at 10:30 Dextrose (D50w Syringe) 50 ml Q15M PRN IV DECREASED GLUCOSE; Start 01/15/17 at 10:30 Glucagon (Glucagen) 1 mg Q15M PRN IM DECREASED GLUCOSE; Start 01/15/17 at 10:30 Glucose (Glutose) 15 gm Q15M PRN BUCCAL DECREASED GLUCOSE; Start 01/15/17 at 10: 30 Diphenhydramine HCl (Benadryl) 25 mg Q6H PRN IV SLEEP Last administered on t 02:47; Admin Dose 25 MG; Start 01/15/17 at 13:30 Docusate Sodium (Colace) 100 mg BID PO ; Start 01/16/17 at 21:00 BENJY TONG MD Jan 16, 2017 12:17
--- NOTE | 2017-01-16 17:06 | PN ---
Date/Time of Note Date/Time of Note DATE: 01/16/17 TIME: 17:05 Assessment/Plan VTE Prophylaxis VTE Prophylaxis Intervention: SCD's Assessment/Plan Chief Complaint/Hosp Course 1. Severe systemic shock likely hypovolemic from acute intra-abdominal hemorrhage / subcapsular hepatic hematoma causing severe coagulopathy: resolved 2. Persistent resp failure 2/2 aspiration pneumonia: extubated now 3. Acute encephalopathy secondary to pneumonia-resolved 4. Recurrence of acute kidney injury secondary to #1: improving 5. 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 Hypertension: better control 7. Diffuse venous thrombosis to include hepatic, portal, and right upper extremity veins 8. Status post alpha hemolytic strep bacteremia 9. Solitary seizure episode likely secondary to #1 10. Acute transaminitis and coagulopathy secondary to subcapsular hematoma s/ p status post hepatic artery ligation versus embolization via IR : Improving 11. Maurice Pneumonia R >>L. * Had lung nodules on admission likely 2/2 pneumonia, no longer present on CT 12. Debility 13. Mild hepatic infarct on CT likely related to #10 14. Persistent hypokalemia and hypophosphatemia Plan: * Resp status is improving is no longer requiring BiPAP, downgrade to telemetry * Patient remains on D5 water with potassium chloride, but is also on Lasix for diuresis * Monitor and replace electrolytes * Continue to closely monitor hemoglobin levels and liver function * Patient remains off anticoagulation d/t bleeding * Patient continues on Abx per ID * No further seizures * Regarding uterine lesion, patient may benefit from total hysterectomy and possible salpingo-oophorectomy with mass excision and biopsy once stable Prophylaxis: SCDs/IV PPI Problems: Subjective 24 Hr Interval Summary Constitutional: no complaints Exam/Review of Systems Vital Signs Vitals Vital Signs Date Time Temp Pulse Resp B/P Pulse Ox O2 Delivery O2 Flow Rate FiO2 01/16/17 16:00 75 20 128/70 98 01/16/17 15:56 4.0 01/16/17 15:00 98.1 01/16/17 13:00 Nasal Cannula 01/16/17 11:15 30 Intake and Output 01/15/17 01/15/17 01/16/17 15:00 23:00 07:00 Intake Total 1864.54 ml 640 ml 890 ml Output Total 1875 ml 450 ml 2750 ml Balance -10.46 ml 190 ml -1860 ml Exam Constitutional: alert Respiratory: clear to auscultation Cardiovascular: regular rate and rhythm Gastrointestinal: distended, non-tender, soft Musculoskeletal: nl extremities to inspection Results Result Diagram: 01/16/17 0415 01/16/17 0415 Results 24 hrs Laboratory Tests Test 01/15/17 17:17 01/15/17 20:09 01/16/17 04:15 01/16/17 08:04 Bedside Glucose 107 122 White Blood Count 12.4 H Red Blood Count 3.55 L Hemoglobin 10.8 L Hematocrit 34.4 L Mean Corpuscular Volume 96.9 Mean Corpuscular Hemoglobin 30.4 Mean Corpuscular Hemoglobin Concent 31.4 L Red Cell Distribution Width 19.4 H Platelet Count 399 Mean Platelet Volume 11.5 H Neutrophils % 85.4 H Lymphocytes % 6.0 L Monocytes % 7.8 Eosinophils % 0.2 Basophils % 0.1 Nucleated Red Blood Cells % 0.0 Neutrophils # 10.6 H Lymphocytes # 0.7 L Monocytes # 1.0 H Eosinophils # 0.0 Basophils # 0.0 Nucleated Red Blood Cells # 0.0 Sodium Level 143 Potassium Level 3.1 L Chloride Level 98 Carbon Dioxide Level 33 H Anion Gap 15 Blood Urea Nitrogen 21 H Creatinine 0.55 Glucose Level 94 # Calcium Level 9.1 Phosphorus Level 2.7 Magnesium Level 1.9 Lab Scanned Report REFERENCE LAB Test 01/16/17 08:34 01/16/17 11:33 01/16/17 11:36 Bedside Glucose 91 113 Lab Scanned Report REFERENCE LAB Medications Medications Current Medications Ondansetron HCl (Zofran Inj) 4 mg Q6H PRN IV NAUSEA AND/OR VOMITING Last administered on 01/05/17 02:20; Admin Dose 4 MG; Start 12/20/16 at 07:30 Acetaminophen (Tylenol Tab) 650 mg Q6H PRN PO PAIN LEVEL 1-3 OR FEVER Last administered on 01/11/17 19:27; Admin Dose 650 MG; Start 12/20/16 at 07:30 Morphine Sulfate (morphine) 4 mg Q4H PRN IV SEVERE PAIN LEVEL 7-10 Last administered on 01/12/17 11:23; Admin Dose 4 MG; Start 12/20/16 at 07:30 Amlodipine Besylate (Norvasc) 5 mg DAILY PO Last administered on 01/16/17 08:35 ; Admin Dose 5 MG; Start 12/21/16 at 09:00 Acetaminophen/ Hydrocodone Bitart ([place] (5/325)) 1 tab Q6H PRN PO PAIN LEVEL 7 -10 Last administered on 01/03/17 21:54; Admin Dose 1 TAB; Start 12/30/16 at 18 :00 Hydromorphone HCl (Dilaudid) 1 mg Q4H PRN IV SEVERE PAIN LEVEL 7-10 Last administered on 01/05/17 02:21; Admin Dose 1 MG; Start 01/02/17 at 17:45 Senna (Senokot) 1 tab BID PO Last administered on 01/16/17 08:35; Admin Dose 1 TAB; Start 01/03/17 at 21:00 Lorazepam (Ativan) 1 mg Q1H PRN IV Seizures Last administered on 01/12/17 14:31 ; Admin Dose 1 MG; Start 01/04/17 at 19:30 IV Flush (NS 10 ml) 10 ml PRN PRN IV FLUSH LINE; Start 01/04/17 at 20:00 Morphine Sulfate (morphine) 2 mg Q4H PRN IV pain Last administered on 01/16/17 11:23; Admin Dose 2 MG; Start 01/05/17 at 01:30 Pantoprazole (Protonix Iv) 40 mg DAILY@06 IV Last administered on 01/16/17 05: 38; Admin Dose 40 MG; Start 01/05/17 at 06:30 Lorazepam (Ativan) 1 mg Q4H PRN IV agitation Last administered on 01/12/17 21: 54; Admin Dose 1 MG; Start 01/05/17 at 07:00 Hydralazine HCl 10 mg 10 mg Q2H PRN IV SBP >170 Last administered on 01/12/17 22:01; Admin Dose 10 MG; Start 01/06/17 at 03:00 Fluconazole/ Sodium Chloride 50 ml @ 50 mls/hr Q24H IVPB Last administered on 11:14; Admin Dose 50 MLS/HR; Start 01/07/17 at 12:00 Vancomycin HCl 750 mg/Sodium Chloride 150 ml @ 75 mls/hr Q12H IVPB Last administered on 01/16/17 10:47; Admin Dose 75 MLS/HR; Start 01/09/17 at 11:00 Piperacillin Sod/ Tazobactam Sod 100 ml @ 200 mls/hr Q6 IVPB Last administered on 01/16/17 12:32; Admin Dose 200 MLS/HR; Start 01/09/17 at 12:00 Potassium Chloride/Dextrose (KCl/D5W) 1,015 ml @ 50 mls/hr [id number] IV Last administered on 01/16/17 04:10; Admin Dose 50 MLS/HR; Start 01/11/17 at 07:00 Furosemide (Lasix) 20 mg Q8 IV Last administered on 01/16/17 14:27; Admin Dose 20 MG; Start 01/11/17 at 14:00 Methylprednisolone Sodium Succinate (Solu-Medrol) 40 mg DAILY IV Last administered on 01/16/17 08:36; Admin Dose 40 MG; Start 01/12/17 at 11:00 Insulin Glargine (Lantus) 10 unit HS SC ; Start 01/15/17 at 21:00 Diagnostic Test (Pha) (Accu-Chek) 1 ea 02 XX ; Start 01/16/17 at 02:00 Miscellaneous Information 1 ea NOTE XX ; Start 01/15/17 at 10:30 Glucose (Glutose) 15 gm Q15M PRN PO DECREASED GLUCOSE; Start 01/15/17 at 10:30 Glucose (Glutose) 22.5 gm Q15M PRN PO DECREASED GLUCOSE; Start 01/15/17 at 10:30 Dextrose (D50w Syringe) 25 ml Q15M PRN IV DECREASED GLUCOSE; Start 01/15/17 at 10:30 Dextrose (D50w Syringe) 50 ml Q15M PRN IV DECREASED GLUCOSE; Start 01/15/17 at 10:30 Glucagon (Glucagen) 1 mg Q15M PRN IM DECREASED GLUCOSE; Start 01/15/17 at 10:30 Glucose (Glutose) 15 gm Q15M PRN BUCCAL DECREASED GLUCOSE; Start 01/15/17 at 10: 30 Diphenhydramine HCl (Benadryl) 25 mg Q6H PRN IV SLEEP Last administered on 02:47; Admin Dose 25 MG; Start 01/15/17 at 13:30 Docusate Sodium (Colace) 100 mg BID PO ; Start 01/16/17 at 21:00 Miscellaneous Information (*Rx Drug Level Order Reminder*) VANCOMYCIN TROUGH ON 01/16 @ 22,:00 ONCE ONCE XX ; Start 01/16/17 at 22:00; Stop 01/16/17 at 22:01 SHELLEY VALENCIA Jan 16, 2017 17:06
--- NOTE | 2017-01-16 17:48 | PN ---
Date/Time of Note Date/Time of Note DATE: 01/16/17 TIME: 17:46 Assessment/Plan VTE Prophylaxis VTE Prophylaxis Intervention: SCD's Assessment/Plan Assessment/Plan Acute respiratory failure managed by pulmonary 2. Anemia acute CT scan Intraabdominal hemorrhage Very large mixed density acute subcapsular hematoma of the liver with moderate blood seen throughout the abdomen and pelvis. Right lower lobe atelectasis or infiltrate and small bilateral effusions. Horseshoe kidneys 3. Transaminitis 4. 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 COMMENT: This case has been reviewed by Dr. Carlos Garcia of [facility] who essentially concurs with our interpretation and he states that the histopathological features are suggestive of but not characteristic for inflammatory (myofibroblastic) pseudotumor, and due to difficulty in assessing IgG4/IgG ratio due to diffuse background staining a diagnosis of sclerosing cholangitis, which can be seen in IgG4-associated liver disease cannot be made at this time. Please see attached consultation report. 5. Portal vein thrombosis Plan * Continue present management * Case discussed with Dr Raphael and Dr Cabrera * Further orders will depend on clinical course Subjective 24 Hr Interval Summary Free Text/Dictation * Course reviewed with RN * Patient seen and examined * No untoward events Exam/Review of Systems Vital Signs Vitals Vital Signs Date Time Temp Pulse Resp B/P Pulse Ox O2 Delivery O2 Flow Rate FiO2 01/16/17 17:38 98.0 79 20 134/78 94 Nasal Cannula 4.0 01/16/17 11:15 30 Intake and Output 01/15/17 01/15/17 01/16/17 15:00 23:00 07:00 Intake Total 1864.54 ml 640 ml 890 ml Output Total 1875 ml 450 ml 2750 ml Balance -10.46 ml 190 ml -1860 ml Exam Constitutional: alert, oriented Head: normocephalic Eyes: nl conjunctiva Neck: non-tender, supple Respiratory: clear to auscultation, normal air movement Cardiovascular: nl pulses, regular rate and rhythm Gastrointestinal: distended, non-tender, soft Genitourinary - Female: nl adnexae Musculoskeletal: nl extremities to inspection, nl gait and stance Neurological: nl mental status, nl speech Skin: nl turgor, No rash or lesions Results Result Diagram: 01/16/17 0415 01/16/17 0415 Results 24 hrs Laboratory Tests Test 01/15/17 20:09 01/16/17 04:15 01/16/17 08:04 01/16/17 08:34 Bedside Glucose 122 91 White Blood Count 12.4 H Red Blood Count 3.55 L Hemoglobin 10.8 L Hematocrit 34.4 L Mean Corpuscular Volume 96.9 Mean Corpuscular Hemoglobin 30.4 Mean Corpuscular Hemoglobin Concent 31.4 L Red Cell Distribution Width 19.4 H Platelet Count 399 Mean Platelet Volume 11.5 H Neutrophils % 85.4 H Lymphocytes % 6.0 L Monocytes % 7.8 Eosinophils % 0.2 Basophils % 0.1 Nucleated Red Blood Cells % 0.0 Neutrophils # 10.6 H Lymphocytes # 0.7 L Monocytes # 1.0 H Eosinophils # 0.0 Basophils # 0.0 Nucleated Red Blood Cells # 0.0 Sodium Level 143 Potassium Level 3.1 L Chloride Level 98 Carbon Dioxide Level 33 H Anion Gap 15 Blood Urea Nitrogen 21 H Creatinine 0.55 Glucose Level 94 # Calcium Level 9.1 Phosphorus Level 2.7 Magnesium Level 1.9 Lab Scanned Report REFERENCE LAB Test 01/16/17 11:33 01/16/17 11:36 01/16/17 17:06 Lab Scanned Report REFERENCE LAB Bedside Glucose 113 106 Medications Medications Current Medications Ondansetron HCl (Zofran Inj) 4 mg Q6H PRN IV NAUSEA AND/OR VOMITING Last administered on 01/05/17 02:20; Admin Dose 4 MG; Start 12/20/16 at 07:30 Acetaminophen (Tylenol Tab) 650 mg Q6H PRN PO PAIN LEVEL 1-3 OR FEVER Last administered on 01/11/17 19:27; Admin Dose 650 MG; Start 12/20/16 at 07:30 Morphine Sulfate (morphine) 4 mg Q4H PRN IV SEVERE PAIN LEVEL 7-10 Last administered on 01/12/17 11:23; Admin Dose 4 MG; Start 12/20/16 at 07:30 Amlodipine Besylate (Norvasc) 5 mg DAILY PO Last administered on 01/16/17 08:35 ; Admin Dose 5 MG; Start 12/21/16 at 09:00 Acetaminophen/ Hydrocodone Bitart ([place] (5/325)) 1 tab Q6H PRN PO PAIN LEVEL 7 -10 Last administered on 01/03/17 21:54; Admin Dose 1 TAB; Start 12/30/16 at 18 :00 Hydromorphone HCl (Dilaudid) 1 mg Q4H PRN IV SEVERE PAIN LEVEL 7-10 Last administered on 01/05/17 02:21; Admin Dose 1 MG; Start 01/02/17 at 17:45 Senna (Senokot) 1 tab BID PO Last administered on 01/16/17 08:35; Admin Dose 1 TAB; Start 01/03/17 at 21:00 Lorazepam (Ativan) 1 mg Q1H PRN IV Seizures Last administered on 01/12/17 14:31 ; Admin Dose 1 MG; Start 01/04/17 at 19:30 IV Flush (NS 10 ml) 10 ml PRN PRN IV FLUSH LINE; Start 01/04/17 at 20:00 Morphine Sulfate (morphine) 2 mg Q4H PRN IV pain Last administered on 01/16/17 11:23; Admin Dose 2 MG; Start 01/05/17 at 01:30 Pantoprazole (Protonix Iv) 40 mg DAILY@06 IV Last administered on 01/16/17 05: 38; Admin Dose 40 MG; Start 01/05/17 at 06:30 Lorazepam (Ativan) 1 mg Q4H PRN IV agitation Last administered on 01/12/17 21: 54; Admin Dose 1 MG; Start 01/05/17 at 07:00 Hydralazine HCl 10 mg 10 mg Q2H PRN IV SBP >170 Last administered on 01/12/17 22:01; Admin Dose 10 MG; Start 01/06/17 at 03:00 Fluconazole/ Sodium Chloride 50 ml @ 50 mls/hr Q24H IVPB Last administered on 11:14; Admin Dose 50 MLS/HR; Start 01/07/17 at 12:00 Vancomycin HCl 750 mg/Sodium Chloride 150 ml @ 75 mls/hr Q12H IVPB Last administered on 01/16/17 10:47; Admin Dose 75 MLS/HR; Start 01/09/17 at 11:00 Piperacillin Sod/ Tazobactam Sod 100 ml @ 200 mls/hr Q6 IVPB Last administered on 01/16/17 17:32; Admin Dose 200 MLS/HR; Start 01/09/17 at 12:00 Potassium Chloride/Dextrose (KCl/D5W) 1,015 ml @ 50 mls/hr [id number] IV Last administered on 01/16/17 04:10; Admin Dose 50 MLS/HR; Start 01/11/17 at 07:00 Furosemide (Lasix) 20 mg Q8 IV Last administered on 01/16/17 14:27; Admin Dose 20 MG; Start 01/11/17 at 14:00 Methylprednisolone Sodium Succinate (Solu-Medrol) 40 mg DAILY IV Last administered on 01/16/17 08:36; Admin Dose 40 MG; Start 01/12/17 at 11:00 Miscellaneous Information 1 ea NOTE XX ; Start 01/15/17 at 10:30 Diphenhydramine HCl (Benadryl) 25 mg Q6H PRN IV SLEEP Last administered on 02:47; Admin Dose 25 MG; Start 01/15/17 at 13:30 Docusate Sodium (Colace) 100 mg BID PO ; Start 01/16/17 at 21:00 Miscellaneous Information (*Rx Drug Level Order Reminder*) VANCOMYCIN TROUGH ON 01/16 @ 22,:00 ONCE ONCE XX ; Start 01/16/17 at 22:00; Stop 01/16/17 at 22:01 NARENDRA FINLEY NP Jan 16, 2017 17:48
[2017-01-16] MEDS: DOCUSATE SODIUM 100 MG CAP PO SCH (21:00)
[2017-01-16] MEDS: VANCOMYCIN 1 GM in NS 250 ML IVPB SCH (23:34)
[2017-01-17] VITALS (12 sets, daily range): BP systolic 118–159; BP diastolic 62–77; PULSE 66–166; RESP 17–19
[2017-01-17] MEDS: POTASSIUM CHLORIDE 30 MEQ in DEXTROSE 5% 1,000 ML IV SCH ×2 (02:37→06:52)
[2017-01-17] MEDS: PANTOPRAZOLE 40 MG INJ IV SCH (05:41)
[2017-01-17] MEDS: PIPER-TAZO 3.375 GM IV (PMX) 100 ML IVPB SCH ×2 (05:41→12:25)
[2017-01-17] MEDS: FUROSEMIDE 20 MG INJ IV SCH (05:42)
[2017-01-17 07:02] LABS: ADD SCAN DIFF NO
[2017-01-17 07:07] LABS: BASOPHILS % 0.1 % (0.0-2.0); EOSINOPHILS % 0.3 % (0.0-7.0); HEMATOCRIT 32.5 % (37.0-47.0); HEMOGLOBIN 10.5 g/dl (12.0-16.0); LYMPHOCYTES # 0.7 10^3/ul (0.8-2.9); LYMPHOCYTES % 5.2 % (15.0-51.0); MEAN CORPUSCULAR HEMOGLOBIN 31.3 pg (29.0-33.0); MEAN CORPUSCULAR HGB CONC 32.3 g/dl (32.0-37.0); MEAN CORPUSCULAR VOLUME 96.7 fl (82.0-101.0); MEAN PLATELET VOLUME 11.3 fl (7.4-10.4); MONOCYTES % 7.6 % (0.0-11.0); NEUTROPHIL # 11.8 10^3/ul (1.6-7.5); NEUTROPHILS % 86.2 % (39.0-77.0); PLATELET COUNT 415 10^3/UL (140-415); RED BLOOD COUNT 3.36 10^6/ul (4.20-5.40); RED CELL DISTRIBUTION WIDTH 19.1 % (11.5-14.5); WHITE BLOOD COUNT 13.7 10^3/ul (4.8-10.8)
[2017-01-17 07:27] LABS: CALCIUM 7.3 mg/dl (8.4-10.2); CREATININE 0.42 mg/dl (0.44-1.00); MAGNESIUM 1.5 mg/dl (1.7-2.5); PHOSPHORUS 2.1 mg/dl (2.5-4.9); POTASSIUM 3.6 mmol/L (3.5-5.1)
[2017-01-17] MEDS: AMLODIPINE 5 MG TAB PO SCH (08:10)
[2017-01-17] MEDS: SENNA TAB PO SCH ×2 (08:11→20:39)
[2017-01-17] MEDS: DOCUSATE SODIUM 100 MG CAP PO SCH ×2 (09:13→20:39)
[2017-01-17] MEDS: METHYLPREDNISOLONE 40 MG INJ IV SCH (09:13)
--- NOTE | 2017-01-17 09:46 | PN ---
Date/Time of Note Date/Time of Note DATE: 01/17/17 TIME: 09:44 Assessment/Plan Lines/Catheters IV Catheter Type (from [facility]): PICC Line Urinary Cath still in place: Yes Assessment/Plan Chief Complaint/Hosp Course 1. Nonoliguric acute kidney injury with previously normal baseline creatinine. Etiology secondary to acute tubular necrosis due to severe anemia, ischemic hypoperfusion, shock. - Patient's renal function has stabilized, - continue current treatment plan, supportive care, renally dose all medications. 2. s/p intra-abdominal bleed. -Hemoglobin levels have been stable. Continue to monitor 3. Volume overload. Improving continue t diuretic therapy 4. Hypernatremia -Improved Continue- D5W decrease rate -Monitor serial sodium levels 3. Mineral bone disease. Will continue to monitor calcium, phosphorus levels. Replace phosphorus 4. hypokalemia/hypomagnesemia. Monitor and replace as needed 5. Sepsis. status post shock, currently off pressor support. Continue current antibiotic regimen. 6. Hypoxemic respiratory failure. Patient BIPAP. Continue to monitor. Follow -up with pulmonary. CT angiogram showed no evidence of PE 7. Portal vein thrombosis. 8. Multiple liver lesions status post biopsy. Findings consistent with possible lymphoplasmacytic involvement will continue to monitor. Follow up with hematology. 9. Uterine mass. Followup with Gynecology/Oncology. Status post code arrest. Problems: Subjective 24 Hr Interval Summary Free Text/Dictation Patient transferred from ICU to telemetry. -Currently off BiPAP. Improving. Exam/Review of Systems Vital Signs Vitals Vital Signs Date Time Temp Pulse Resp B/P Pulse Ox O2 Delivery O2 Flow Rate FiO2 01/17/17 08:11 69 01/17/17 07:46 98.0 17 118/62 97 01/17/17 05:43 3.0 01/16/17 20:00 Nasal Cannula 01/16/17 11:15 30 Intake and Output 01/16/17 01/16/17 01/17/17 15:00 23:00 07:00 Intake Total 1215 ml 350 ml 300 ml Output Total 1400 ml 550 ml 2000 ml Balance -185 ml -200 ml -1700 ml Exam HEENT: Head is normocephalic. Pupils are reactive to light. NECK: Supple. HEART: Regular rate. LUNGS: Show diminished breath sounds at base. ABDOMEN: Soft, nontender to palpation. No rebound or guarding. EXTREMITIES: Negative for clubbing, cyanosis, no edema. DERMATOLOGIC: No rashes. MUSCULOSKELETAL: No joint effusions. NEUROLOGIC: No change in exam. Results Result Diagram: 01/17/17 0607 01/17/17 0607 Results 24 hrs Laboratory Tests Test 01/16/17 11:33 01/16/17 11:36 01/16/17 17:06 01/16/17 21:55 Lab Scanned Report REFERENCE LAB Bedside Glucose 113 106 Vancomycin Level Trough 9.4 L Test 01/17/17 06:07 White Blood Count 13.7 H Red Blood Count 3.36 L Hemoglobin 10.5 L Hematocrit 32.5 L Mean Corpuscular Volume 96.7 Mean Corpuscular Hemoglobin 31.3 Mean Corpuscular Hemoglobin Concent 32.3 Red Cell Distribution Width 19.1 H Platelet Count 415 Mean Platelet Volume 11.3 H Neutrophils % 86.2 H Lymphocytes % 5.2 L Monocytes % 7.6 Eosinophils % 0.3 Basophils % 0.1 Nucleated Red Blood Cells % 0.0 Neutrophils # 11.8 H Lymphocytes # 0.7 L Monocytes # 1.0 H Eosinophils # 0.0 Basophils # 0.0 Nucleated Red Blood Cells # 0.0 Sodium Level 145 H Potassium Level 3.6 Chloride Level 100 Carbon Dioxide Level 29 Anion Gap 20 H Blood Urea Nitrogen 17 Creatinine 0.42 L Glucose Level 213 # Calcium Level 7.3 L Phosphorus Level 2.1 L Magnesium Level 1.5 L Medications Medications Current Medications Ondansetron HCl (Zofran Inj) 4 mg Q6H PRN IV NAUSEA AND/OR VOMITING Last administered on 01/05/17 02:20; Admin Dose 4 MG; Start 12/20/16 at 07:30 Acetaminophen (Tylenol Tab) 650 mg Q6H PRN PO PAIN LEVEL 1-3 OR FEVER Last administered on 01/11/17 19:27; Admin Dose 650 MG; Start 12/20/16 at 07:30 Morphine Sulfate (morphine) 4 mg Q4H PRN IV SEVERE PAIN LEVEL 7-10 Last administered on 01/12/17 11:23; Admin Dose 4 MG; Start 12/20/16 at 07:30 Amlodipine Besylate (Norvasc) 5 mg DAILY PO Last administered on 01/16/17 08:35 ; Admin Dose 5 MG; Start 12/21/16 at 09:00 Acetaminophen/ Hydrocodone Bitart ([place] (5/325)) 1 tab Q6H PRN PO PAIN LEVEL 7 -10 Last administered on 01/03/17 21:54; Admin Dose 1 TAB; Start 12/30/16 at 18 :00 Hydromorphone HCl (Dilaudid) 1 mg Q4H PRN IV SEVERE PAIN LEVEL 7-10 Last administered on 01/05/17 02:21; Admin Dose 1 MG; Start 01/02/17 at 17:45 Senna (Senokot) 1 tab BID PO Last administered on 01/16/17 08:35; Admin Dose 1 TAB; Start 01/03/17 at 21:00 Lorazepam (Ativan) 1 mg Q1H PRN IV Seizures Last administered on 01/12/17 14:31 ; Admin Dose 1 MG; Start 01/04/17 at 19:30 IV Flush (NS 10 ml) 10 ml PRN PRN IV FLUSH LINE; Start 01/04/17 at 20:00 Morphine Sulfate (morphine) 2 mg Q4H PRN IV pain Last administered on 01/16/17 23:34; Admin Dose 2 MG; Start 01/05/17 at 01:30 Pantoprazole (Protonix Iv) 40 mg DAILY@06 IV Last administered on 01/17/17 05: 41; Admin Dose 40 MG; Start 01/05/17 at 06:30 Lorazepam (Ativan) 1 mg Q4H PRN IV agitation Last administered on 01/12/17 21: 54; Admin Dose 1 MG; Start 01/05/17 at 07:00 Hydralazine HCl 10 mg 10 mg Q2H PRN IV SBP >170 Last administered on 01/12/17 22:01; Admin Dose 10 MG; Start 01/06/17 at 03:00 Fluconazole/ Sodium Chloride 50 ml @ 50 mls/hr Q24H IVPB Last administered on 11:14; Admin Dose 50 MLS/HR; Start 01/07/17 at 12:00 Piperacillin Sod/ Tazobactam Sod 100 ml @ 200 mls/hr Q6 IVPB Last administered on 01/17/17 05:41; Admin Dose 200 MLS/HR; Start 01/09/17 at 12:00 Potassium Chloride/Dextrose (KCl/D5W) 1,015 ml @ 50 mls/hr [id number] IV Last administered on 01/17/17 06:52; Admin Dose 50 MLS/HR; Start 01/11/17 at 07:00 Furosemide (Lasix) 20 mg Q8 IV Last administered on 01/17/17 05:42; Admin Dose 20 MG; Start 01/11/17 at 14:00 Methylprednisolone Sodium Succinate (Solu-Medrol) 40 mg DAILY IV Last administered on 01/17/17 09:13; Admin Dose 40 MG; Start 01/12/17 at 11:00 Miscellaneous Information 1 ea NOTE XX ; Start 01/15/17 at 10:30 Diphenhydramine HCl (Benadryl) 25 mg Q6H PRN IV SLEEP Last administered on 23:33; Admin Dose 25 MG; Start 01/15/17 at 13:30 Docusate Sodium 100 mg 100 mg BID PO Last administered on 01/17/17 09:13; Admin Dose 100 MG; Start 01/16/17 at 21:00 Vancomycin HCl 250 ml @ 125 mls/hr Q12H IVPB Last administered on 01/16/17 23: 34; Admin Dose 125 MLS/HR; Start 01/16/17 at 23:00 Magnesium Sulfate (Magnesium Sulfate 4 Gm/100 ml) 100 ml @ 25 mls/hr ONCE IVPB ; Start 01/17/17 at 11:00; Stop 01/17/17 at 14:59 MILLY DAIGLE DO Jan 17, 2017 09:45
[2017-01-17] MEDS ORDERED: MAGNESIUM SULFATE 2 GM/50 ML 50 ML IVPB ONE (10:00)
[2017-01-17] MEDS: VANCOMYCIN 1 GM in NS 250 ML IVPB SCH (10:04)
[2017-01-17] MEDS ORDERED: MAGNESIUM SULFATE 4 GM/100 ML 100 ML IVPB SCH (11:00)
--- NOTE | 2017-01-17 11:14 | PN ---
Date/Time of Note Date/Time of Note DATE: 01/17/17 TIME: 11:04 Assessment/Plan VTE Prophylaxis VTE Prophylaxis Intervention: contraindicated VTE Contraindication Reason: bleeding Lines/Catheters IV Catheter Type (from Nrs): PICC Line Central line still needed: Yes Urinary Cath still in place: Yes Reason Cath still needed: urinary retention Assessment/Plan Chief Complaint/Hosp Course Bx of hepatic lesions do not detect any malignancy. 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 Hepatic hemorrhage seems to have been controlled. No further bleeding. Coagulation parameters are nl. No evidence of DIC at this time or in past. Uterine lesion not likely to be related to the hepatic process, but further evaluation is needed. Cannot r/o the poss of a leiomyosarcoma. Problems: (1) Jaundice Status: Acute (2) Uterine mass Status: Acute (3) Hepatic vein thrombosis Status: Acute (4) Portal vein thrombosis Status: Acute Assessment/Plan Pt remains icteric. Haptoglobin is <15. Bili split is 50/50 and not consistent with hemolysis. Hgb is not decreasing. Will check haptoglobin, plasma Hgb, LDH for evidence of hemolysis but I feel that this unlikely. Not clear why pt is still icteric. Transaminases are only sl elevated. No strong evidence of cholestatic or obstructive jaundice. Subjective 24 Hr Interval Summary Free Text/Dictation Pt has no new complaints. Has been transferred to telemetry. Exam/Review of Systems Vital Signs Vitals Vital Signs Date Time Temp Pulse Resp B/P Pulse Ox O2 Delivery O2 Flow Rate FiO2 01/17/17 09:00 Nasal Cannula 4.0 01/17/17 08:11 69 01/17/17 07:46 98.0 17 118/62 97 01/16/17 11:15 30 Intake and Output 01/16/17 01/16/17 01/17/17 15:00 23:00 07:00 Intake Total 1215 ml 350 ml 300 ml Output Total 1400 ml 550 ml 2000 ml Balance -185 ml -200 ml -1700 ml Exam Constitutional: alert, obese, oriented Head: atraumatic, normocephalic Eyes: EOMI, PERRL, icteric ENMT: mucosa pink and moist Neck: non-tender, supple Respiratory: clear to auscultation, normal air movement Cardiovascular: nl pulses, regular rate and rhythm Gastrointestinal: nl liver, spleen, non-tender Musculoskeletal: nl extremities to inspection, nl gait and stance Extremities: normal pulses, other (PICC line in LUE.) Neurological: DIGITAL [employer]IA SPECIALIST II-XII intact, nl mental status Skin: nl turgor, rash or lesions Results Result Diagram: 01/17/17 0607 01/17/17 0607 Results 24 hrs Laboratory Tests Test 01/16/17 11:33 01/16/17 11:36 01/16/17 17:06 01/16/17 21:55 Lab Scanned Report REFERENCE LAB Bedside Glucose 113 106 Vancomycin Level Trough 9.4 L Test 01/17/17 06:07 White Blood Count 13.7 H Red Blood Count 3.36 L Hemoglobin 10.5 L Hematocrit 32.5 L Mean Corpuscular Volume 96.7 Mean Corpuscular Hemoglobin 31.3 Mean Corpuscular Hemoglobin Concent 32.3 Red Cell Distribution Width 19.1 H Platelet Count 415 Mean Platelet Volume 11.3 H Neutrophils % 86.2 H Lymphocytes % 5.2 L Monocytes % 7.6 Eosinophils % 0.3 Basophils % 0.1 Nucleated Red Blood Cells % 0.0 Neutrophils # 11.8 H Lymphocytes # 0.7 L Monocytes # 1.0 H Eosinophils # 0.0 Basophils # 0.0 Nucleated Red Blood Cells # 0.0 Sodium Level 145 H Potassium Level 3.6 Chloride Level 100 Carbon Dioxide Level 29 Anion Gap 20 H Blood Urea Nitrogen 17 Creatinine 0.42 L Glucose Level 213 # Calcium Level 7.3 L Phosphorus Level 2.1 L Magnesium Level 1.5 L Medications Medications Current Medications Ondansetron HCl (Zofran Inj) 4 mg Q6H PRN IV NAUSEA AND/OR VOMITING Last administered on 01/05/17 02:20; Admin Dose 4 MG; Start 12/20/16 at 07:30 Acetaminophen (Tylenol Tab) 650 mg Q6H PRN PO PAIN LEVEL 1-3 OR FEVER Last administered on 01/11/17 19:27; Admin Dose 650 MG; Start 12/20/16 at 07:30 Morphine Sulfate (morphine) 4 mg Q4H PRN IV SEVERE PAIN LEVEL 7-10 Last administered on 01/12/17 11:23; Admin Dose 4 MG; Start 12/20/16 at 07:30 Amlodipine Besylate (Norvasc) 5 mg DAILY PO Last administered on 01/16/17 08:35 ; Admin Dose 5 MG; Start 12/21/16 at 09:00 Acetaminophen/ Hydrocodone Bitart ([place] (5/325)) 1 tab Q6H PRN PO PAIN LEVEL 7 -10 Last administered on 01/03/17 21:54; Admin Dose 1 TAB; Start 12/30/16 at 18 :00 Hydromorphone HCl (Dilaudid) 1 mg Q4H PRN IV SEVERE PAIN LEVEL 7-10 Last administered on 01/05/17 02:21; Admin Dose 1 MG; Start 01/02/17 at 17:45 Senna (Senokot) 1 tab BID PO Last administered on 01/16/17 08:35; Admin Dose 1 TAB; Start 01/03/17 at 21:00 Lorazepam (Ativan) 1 mg Q1H PRN IV Seizures Last administered on 01/12/17 14:31 ; Admin Dose 1 MG; Start 01/04/17 at 19:30 IV Flush (NS 10 ml) 10 ml PRN PRN IV FLUSH LINE; Start 01/04/17 at 20:00 Morphine Sulfate (morphine) 2 mg Q4H PRN IV pain Last administered on 01/16/17 23:34; Admin Dose 2 MG; Start 01/05/17 at 01:30 Pantoprazole (Protonix Iv) 40 mg DAILY@06 IV Last administered on 01/17/17 05: 41; Admin Dose 40 MG; Start 01/05/17 at 06:30 Lorazepam (Ativan) 1 mg Q4H PRN IV agitation Last administered on 01/12/17 21: 54; Admin Dose 1 MG; Start 01/05/17 at 07:00 Hydralazine HCl 10 mg 10 mg Q2H PRN IV SBP >170 Last administered on 01/12/17 22:01; Admin Dose 10 MG; Start 01/06/17 at 03:00 Fluconazole/ Sodium Chloride 50 ml @ 50 mls/hr Q24H IVPB Last administered on 11:14; Admin Dose 50 MLS/HR; Start 01/07/17 at 12:00 Piperacillin Sod/ Tazobactam Sod 100 ml @ 200 mls/hr Q6 IVPB Last administered on 01/17/17 05:41; Admin Dose 200 MLS/HR; Start 01/09/17 at 12:00 Potassium Chloride/Dextrose (KCl/D5W) 1,015 ml @ 50 mls/hr [id number] IV Last administered on 01/17/17 06:52; Admin Dose 50 MLS/HR; Start 01/11/17 at 07:00 Methylprednisolone Sodium Succinate (Solu-Medrol) 40 mg DAILY IV Last administered on 01/17/17 09:13; Admin Dose 40 MG; Start 01/12/17 at 11:00 Miscellaneous Information 1 ea NOTE XX ; Start 01/15/17 at 10:30 Diphenhydramine HCl (Benadryl) 25 mg Q6H PRN IV SLEEP Last administered on 23:33; Admin Dose 25 MG; Start 01/15/17 at 13:30 Docusate Sodium 100 mg 100 mg BID PO Last administered on 01/17/17 09:13; Admin Dose 100 MG; Start 01/16/17 at 21:00 Vancomycin HCl 250 ml @ 125 mls/hr Q12H IVPB Last administered on 01/17/17 10: 04; Admin Dose 125 MLS/HR; Start 01/16/17 at 23:00 Magnesium Sulfate (Magnesium Sulfate 4 Gm/100 ml) 100 ml @ 25 mls/hr ONCE IVPB Last administered on 01/17/17 10:53; Admin Dose 25 MLS/HR; Start 01/17/17 at 11 :00; Stop 01/17/17 at 14:59 Furosemide 20 mg 20 mg DAILY IV ; Start 01/18/17 at 09:00 Potassium Phosphate/Sodium Chloride (K Phos (Meq)/NS) 254.5455 ml @ 63.636 m... ONCE ONCE IVPB Last administered on 01/17/17 11:00; Admin Dose 63.636 MLS /HR; Start 01/17/17 at 12:00; Stop 01/17/17 at 15:59 ECTOR GHOSH MD Jan 17, 2017 11:14
[2017-01-17] MEDS: FLUCONAZOLE 100 MG/NS (PMX) 50 ML IVPB SCH (11:42)
[2017-01-17] MEDS ORDERED: POTASSIUM PHOSPHATE 20 MEQ in SOD CHLORIDE 0.9% 250 ML IVPB ONE (12:00)
[2017-01-17 12:40] LABS: ALBUMIN 3.3 g/dl (3.3-4.9); BILIRUBIN,DIRECT 1.6 mg/dl (0.00-0.20); BILIRUBIN,INDIRECT 1.9 mg/dl (0-1.1); BILIRUBIN,TOTAL 3.5 mg/dl (0.2-1.3)
--- NOTE | 2017-01-17 12:45 | PN ---
Date/Time of Note Date/Time of Note DATE: 01/17/17 TIME: 12:42 Assessment/Plan VTE Prophylaxis VTE Prophylaxis Intervention: SCD's Assessment/Plan Chief Complaint/Hosp Course 1. Severe systemic shock likely hypovolemic from acute intra-abdominal hemorrhage / subcapsular hepatic hematoma causing severe coagulopathy: resolved 2. Persistent resp failure 2/2 aspiration pneumonia: extubated now 3. Acute encephalopathy secondary to pneumonia-resolved 4. Recurrence of acute kidney injury secondary to #1: improving 5. 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 Hypertension: better control 7. Diffuse venous thrombosis to include hepatic, portal, and right upper extremity veins 8. Status post alpha hemolytic strep bacteremia 9. Solitary seizure episode likely secondary to #1 10. Acute transaminitis and coagulopathy secondary to subcapsular hematoma s/ p status post hepatic artery ligation versus embolization via IR : Improving 11. Maurice Pneumonia R >>L. * Had lung nodules on admission likely 2/2 pneumonia, no longer present on CT 12. Debility 13. Mild hepatic infarct on CT likely related to #10 14. Persistent hypokalemia and hypophosphatemia Plan: * Resp status is improving is no longer requiring BiPAP and is stable with nasal cannula * Patient remains on D5 water with potassium chloride, but is also on Lasix for diuresis * Monitor and replace electrolytes * Continue to closely monitor hemoglobin levels and liver function * Patient remains off anticoagulation d/t bleeding * Patient continues on Abx per ID * No further seizures * Regarding uterine lesion, per Dr. Jaimes of gynecology oncology no indication for biopsy or further intervention as patient is asymptomatic and masses are believed to be secondary to fibroids Prophylaxis: SCDs/IV PPI Problems: Subjective 24 Hr Interval Summary Gastrointestinal: pain Exam/Review of Systems Vital Signs Vitals Vital Signs Date Time Temp Pulse Resp B/P Pulse Ox O2 Delivery O2 Flow Rate FiO2 01/17/17 12:10 74 01/17/17 11:24 97.8 18 140/71 98 01/17/17 09:00 Nasal Cannula 4.0 01/16/17 11:15 30 Intake and Output 01/16/17 01/16/17 01/17/17 14:59 22:59 06:59 Intake Total 1215 ml 400 ml 300 ml Output Total 1125 ml 825 ml 2000 ml Balance 90 ml -425 ml -1700 ml Exam Constitutional: alert, oriented Respiratory: clear to auscultation Cardiovascular: regular rate and rhythm Gastrointestinal: soft, tender, No distended Musculoskeletal: nl extremities to inspection Results Result Diagram: 01/17/17 0607 01/17/17 0607 Results 24 hrs Laboratory Tests Test 01/16/17 17:06 01/16/17 21:55 01/17/17 06:07 01/17/17 11:45 Bedside Glucose 106 Vancomycin Level Trough 9.4 L White Blood Count 13.7 H Red Blood Count 3.36 L Hemoglobin 10.5 L Hematocrit 32.5 L Mean Corpuscular Volume 96.7 Mean Corpuscular Hemoglobin 31.3 Mean Corpuscular Hemoglobin Concent 32.3 Red Cell Distribution Width 19.1 H Platelet Count 415 Mean Platelet Volume 11.3 H Neutrophils % 86.2 H Lymphocytes % 5.2 L Monocytes % 7.6 Eosinophils % 0.3 Basophils % 0.1 Nucleated Red Blood Cells % 0.0 Neutrophils # 11.8 H Lymphocytes # 0.7 L Monocytes # 1.0 H Eosinophils # 0.0 Basophils # 0.0 Nucleated Red Blood Cells # 0.0 Sodium Level 145 H Potassium Level 3.6 Chloride Level 100 Carbon Dioxide Level 29 Anion Gap 20 H Blood Urea Nitrogen 17 Creatinine 0.42 L Glucose Level 213 # Calcium Level 7.3 L Phosphorus Level 2.1 L Magnesium Level 1.5 L Total Bilirubin 3.5 H Direct Bilirubin 1.60 H Indirect Bilirubin 1.9 H Aspartate Amino Transf (AST/SGOT) 51 H Alanine Aminotransferase (ALT/SGPT) 31 Alkaline Phosphatase 171 H Total Protein 6.0 L Albumin 3.3 Medications Medications Current Medications Ondansetron HCl (Zofran Inj) 4 mg Q6H PRN IV NAUSEA AND/OR VOMITING Last administered on 01/05/17 02:20; Admin Dose 4 MG; Start 12/20/16 at 07:30 Acetaminophen (Tylenol Tab) 650 mg Q6H PRN PO PAIN LEVEL 1-3 OR FEVER Last administered on 01/11/17 19:27; Admin Dose 650 MG; Start 12/20/16 at 07:30 Morphine Sulfate (morphine) 4 mg Q4H PRN IV SEVERE PAIN LEVEL 7-10 Last administered on 01/12/17 11:23; Admin Dose 4 MG; Start 12/20/16 at 07:30 Amlodipine Besylate (Norvasc) 5 mg DAILY PO Last administered on 01/16/17 08:35 ; Admin Dose 5 MG; Start 12/21/16 at 09:00 Acetaminophen/ Hydrocodone Bitart ([place] (5/325)) 1 tab Q6H PRN PO PAIN LEVEL 7 -10 Last administered on 01/03/17 21:54; Admin Dose 1 TAB; Start 12/30/16 at 18 :00 Hydromorphone HCl (Dilaudid) 1 mg Q4H PRN IV SEVERE PAIN LEVEL 7-10 Last administered on 01/05/17 02:21; Admin Dose 1 MG; Start 01/02/17 at 17:45 Senna (Senokot) 1 tab BID PO Last administered on 01/16/17 08:35; Admin Dose 1 TAB; Start 01/03/17 at 21:00 Lorazepam (Ativan) 1 mg Q1H PRN IV Seizures Last administered on 01/12/17 14:31 ; Admin Dose 1 MG; Start 01/04/17 at 19:30 IV Flush (NS 10 ml) 10 ml PRN PRN IV FLUSH LINE; Start 01/04/17 at 20:00 Morphine Sulfate (morphine) 2 mg Q4H PRN IV pain Last administered on 01/16/17 23:34; Admin Dose 2 MG; Start 01/05/17 at 01:30 Pantoprazole (Protonix Iv) 40 mg DAILY@06 IV Last administered on 01/17/17 05: 41; Admin Dose 40 MG; Start 01/05/17 at 06:30 Lorazepam (Ativan) 1 mg Q4H PRN IV agitation Last administered on 01/12/17 21: 54; Admin Dose 1 MG; Start 01/05/17 at 07:00 Hydralazine HCl 10 mg 10 mg Q2H PRN IV SBP >170 Last administered on 01/12/17 22:01; Admin Dose 10 MG; Start 01/06/17 at 03:00 Fluconazole/ Sodium Chloride 50 ml @ 50 mls/hr Q24H IVPB Last administered on 11:42; Admin Dose 50 MLS/HR; Start 01/07/17 at 12:00 Piperacillin Sod/ Tazobactam Sod 100 ml @ 200 mls/hr Q6 IVPB Last administered on 01/17/17 12:25; Admin Dose 200 MLS/HR; Start 01/09/17 at 12:00 Potassium Chloride/Dextrose (KCl/D5W) 1,015 ml @ 50 mls/hr [id number] IV Last administered on 01/17/17 06:52; Admin Dose 50 MLS/HR; Start 01/11/17 at 07:00 Methylprednisolone Sodium Succinate (Solu-Medrol) 40 mg DAILY IV Last administered on 01/17/17 09:13; Admin Dose 40 MG; Start 01/12/17 at 11:00 Miscellaneous Information 1 ea NOTE XX ; Start 01/15/17 at 10:30 Diphenhydramine HCl (Benadryl) 25 mg Q6H PRN IV SLEEP Last administered on 23:33; Admin Dose 25 MG; Start 01/15/17 at 13:30 Docusate Sodium 100 mg 100 mg BID PO Last administered on 01/17/17 09:13; Admin Dose 100 MG; Start 01/16/17 at 21:00 Vancomycin HCl 250 ml @ 125 mls/hr Q12H IVPB Last administered on 01/17/17 10: 04; Admin Dose 125 MLS/HR; Start 01/16/17 at 23:00 Magnesium Sulfate (Magnesium Sulfate 4 Gm/100 ml) 100 ml @ 25 mls/hr ONCE IVPB Last administered on 01/17/17 10:53; Admin Dose 25 MLS/HR; Start 01/17/17 at 11 :00; Stop 01/17/17 at 14:59 Furosemide 20 mg 20 mg DAILY IV ; Start 01/18/17 at 09:00 Potassium Phosphate/Sodium Chloride (K Phos (Meq)/NS) 254.5455 ml @ 63.636 m... ONCE ONCE IVPB Last administered on 01/17/17 11:00; Admin Dose 63.636 MLS /HR; Start 01/17/17 at 12:00; Stop 01/17/17 at 15:59 SHELLEY VALENCIA Jan 17, 2017 12:45
--- NOTE | 2017-01-17 14:07 | PN ---
Date/Time of Note Date/Time of Note DATE: 01/17/17 TIME: 14:02 Assessment/Plan VTE Prophylaxis VTE Prophylaxis Intervention: SCD's Assessment/Plan Assessment/Plan 1. Acute respiratory failure managed by pulmonary 2. Anemia acute CT scan Intraabdominal hemorrhage Very large mixed density acute subcapsular hematoma of the liver with moderate blood seen throughout the abdomen and pelvis. Right lower lobe atelectasis or infiltrate and small bilateral effusions. Horseshoe kidneys 3. Transaminitis 4. 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 COMMENT: This case has been reviewed by Dr. Carlos Garcia of [facility] who essentially concurs with our interpretation and he states that the histopathological features are suggestive of but not characteristic for inflammatory (myofibroblastic) pseudotumor, and due to difficulty in assessing IgG4/IgG ratio due to diffuse background staining a diagnosis of sclerosing cholangitis, which can be seen in IgG4-associated liver disease cannot be made at this time. Please see attached consultation report. 5. Portal vein thrombosis Plan * continue present management * will continue to trend transaminases level * case discussed with Dr Raphael * Further orders will depend on clinical course Subjective 24 Hr Interval Summary Free Text/Dictation * Course reviewed with RN * Patient seen and examined * No untoward events overnight Exam/Review of Systems Vital Signs Vitals Vital Signs Date Time Temp Pulse Resp B/P Pulse Ox O2 Delivery O2 Flow Rate FiO2 01/17/17 13:42 166 01/17/17 11:24 97.8 18 140/71 98 01/17/17 09:00 Nasal Cannula 4.0 01/16/17 11:15 30 Intake and Output 01/16/17 01/16/17 01/17/17 15:00 23:00 07:00 Intake Total 1215 ml 350 ml 300 ml Output Total 1400 ml 550 ml 2000 ml Balance -185 ml -200 ml -1700 ml Exam Constitutional: alert, oriented Eyes: icteric, nl sclera Neck: non-tender, supple Respiratory: clear to auscultation, diminished breath sounds, normal air movement Cardiovascular: nl pulses, regular rate and rhythm Gastrointestinal: bowel sounds, distended, non-tender, soft Musculoskeletal: nl extremities to inspection Extremities: normal pulses Neurological: nl speech Skin: nl turgor Lymph: nl lymph nodes Results Result Diagram: 01/17/17 0607 01/17/17 0607 Results 24 hrs Laboratory Tests Test 01/16/17 17:06 01/16/17 21:55 01/17/17 06:07 01/17/17 11:45 Bedside Glucose 106 Vancomycin Level Trough 9.4 L White Blood Count 13.7 H Red Blood Count 3.36 L Hemoglobin 10.5 L Hematocrit 32.5 L Mean Corpuscular Volume 96.7 Mean Corpuscular Hemoglobin 31.3 Mean Corpuscular Hemoglobin Concent 32.3 Red Cell Distribution Width 19.1 H Platelet Count 415 Mean Platelet Volume 11.3 H Neutrophils % 86.2 H Lymphocytes % 5.2 L Monocytes % 7.6 Eosinophils % 0.3 Basophils % 0.1 Nucleated Red Blood Cells % 0.0 Neutrophils # 11.8 H Lymphocytes # 0.7 L Monocytes # 1.0 H Eosinophils # 0.0 Basophils # 0.0 Nucleated Red Blood Cells # 0.0 Sodium Level 145 H Potassium Level 3.6 Chloride Level 100 Carbon Dioxide Level 29 Anion Gap 20 H Blood Urea Nitrogen 17 Creatinine 0.42 L Glucose Level 213 # Calcium Level 7.3 L Phosphorus Level 2.1 L Magnesium Level 1.5 L Total Bilirubin 3.5 H Direct Bilirubin 1.60 H Indirect Bilirubin 1.9 H Aspartate Amino Transf (AST/SGOT) 51 H Alanine Aminotransferase (ALT/SGPT) 31 Alkaline Phosphatase 171 H Lactate Dehydrogenase 2914 H Total Protein 6.0 L Albumin 3.3 Medications Medications Current Medications Ondansetron HCl (Zofran Inj) 4 mg Q6H PRN IV NAUSEA AND/OR VOMITING Last administered on 01/05/17 02:20; Admin Dose 4 MG; Start 12/20/16 at 07:30 Acetaminophen (Tylenol Tab) 650 mg Q6H PRN PO PAIN LEVEL 1-3 OR FEVER Last administered on 01/11/17 19:27; Admin Dose 650 MG; Start 12/20/16 at 07:30 Morphine Sulfate (morphine) 4 mg Q4H PRN IV SEVERE PAIN LEVEL 7-10 Last administered on 01/12/17 11:23; Admin Dose 4 MG; Start 12/20/16 at 07:30 Amlodipine Besylate (Norvasc) 5 mg DAILY PO Last administered on 01/16/17 08:35 ; Admin Dose 5 MG; Start 12/21/16 at 09:00 Acetaminophen/ Hydrocodone Bitart ([place] (5/325)) 1 tab Q6H PRN PO PAIN LEVEL 7 -10 Last administered on 01/03/17 21:54; Admin Dose 1 TAB; Start 12/30/16 at 18 :00 Hydromorphone HCl (Dilaudid) 1 mg Q4H PRN IV SEVERE PAIN LEVEL 7-10 Last administered on 01/05/17 02:21; Admin Dose 1 MG; Start 01/02/17 at 17:45 Senna (Senokot) 1 tab BID PO Last administered on 01/16/17 08:35; Admin Dose 1 TAB; Start 01/03/17 at 21:00 Lorazepam (Ativan) 1 mg Q1H PRN IV Seizures Last administered on 01/12/17 14:31 ; Admin Dose 1 MG; Start 01/04/17 at 19:30 IV Flush (NS 10 ml) 10 ml PRN PRN IV FLUSH LINE; Start 01/04/17 at 20:00 Morphine Sulfate (morphine) 2 mg Q4H PRN IV pain Last administered on 01/16/17 23:34; Admin Dose 2 MG; Start 01/05/17 at 01:30 Pantoprazole (Protonix Iv) 40 mg DAILY@06 IV Last administered on 01/17/17 05: 41; Admin Dose 40 MG; Start 01/05/17 at 06:30 Lorazepam (Ativan) 1 mg Q4H PRN IV agitation Last administered on 01/12/17 21: 54; Admin Dose 1 MG; Start 01/05/17 at 07:00 Hydralazine HCl 10 mg 10 mg Q2H PRN IV SBP >170 Last administered on 01/12/17 22:01; Admin Dose 10 MG; Start 01/06/17 at 03:00 Fluconazole/ Sodium Chloride 50 ml @ 50 mls/hr Q24H IVPB Last administered on 11:42; Admin Dose 50 MLS/HR; Start 01/07/17 at 12:00 Piperacillin Sod/ Tazobactam Sod 100 ml @ 200 mls/hr Q6 IVPB Last administered on 01/17/17 12:25; Admin Dose 200 MLS/HR; Start 01/09/17 at 12:00 Potassium Chloride/Dextrose (KCl/D5W) 1,015 ml @ 50 mls/hr [id number] IV Last administered on 01/17/17 06:52; Admin Dose 50 MLS/HR; Start 01/11/17 at 07:00 Methylprednisolone Sodium Succinate (Solu-Medrol) 40 mg DAILY IV Last administered on 01/17/17 09:13; Admin Dose 40 MG; Start 01/12/17 at 11:00 Miscellaneous Information 1 ea NOTE XX ; Start 01/15/17 at 10:30 Diphenhydramine HCl (Benadryl) 25 mg Q6H PRN IV SLEEP Last administered on 23:33; Admin Dose 25 MG; Start 01/15/17 at 13:30 Docusate Sodium 100 mg 100 mg BID PO Last administered on 01/17/17 09:13; Admin Dose 100 MG; Start 01/16/17 at 21:00 Vancomycin HCl 250 ml @ 125 mls/hr Q12H IVPB Last administered on 01/17/17 10: 04; Admin Dose 125 MLS/HR; Start 01/16/17 at 23:00 Magnesium Sulfate (Magnesium Sulfate 4 Gm/100 ml) 100 ml @ 25 mls/hr ONCE IVPB Last administered on 01/17/17 10:53; Admin Dose 25 MLS/HR; Start 01/17/17 at 11 :00; Stop 01/17/17 at 14:59 Furosemide 20 mg 20 mg DAILY IV ; Start 01/18/17 at 09:00 Potassium Phosphate/Sodium Chloride (K Phos (Meq)/NS) 254.5455 ml @ 63.636 m... ONCE ONCE IVPB Last administered on 01/17/17 11:00; Admin Dose 63.636 MLS /HR; Start 01/17/17 at 12:00; Stop 01/17/17 at 15:59 NARENDRA FINLEY NP Jan 17, 2017 14:07
--- NOTE | 2017-01-17 16:12 | CONS ---
Date/Time of Note Date/Time of Note DATE: 01/17/17 TIME: 16:10 Assessment/Plan Assessment/Plan Chief Complaint/Hosp Course No acute events overnight, patient is calm comfortable on nasal cannula, denies pain discomfort, family at bedside Laboratory data WBC 13.7 H&H 10.5 and 32.5 platelets 415 neutrophils 86.2 BUN 17 creatinine 0.42 Indwelling's: Lau catheter PICC line Diagnostic: Chest x-ray this morning revealed low lung volumes with compressive changes and basilar atelectasis Antimicrobials: Zosyn vancomycin fluconazole day #10 Physical examination: Morbidly obese, well-developed middle-aged woman who is alert in no distress. Head atraumatic normocephalic, sclera nonicteric. Neck is obese, trachea midline. Chest rise symmetrical breath sounds diminished basis. Heart S1-S2. Abdomen soft distended bowel tones hypoactive. Extremities with trace edema Assessment: 1. Status post acute respiratory failure 2. Status post healthcare associated pneumonia 3. Status post hepatic hemorrhage secondary to liver biopsy 4. 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 Hepatic and portal vein thrombosis 6. Status post streptococcal bacteremia on admission with repeat blood cultures being negative 7. Uterine lesion, possibly malignant Plan: Continues to improve, discontinue antibiotics and observe, follow recommendations of consultants, repeat cultures as needed Discussed with staff Discussed with family at bedside Problems: Consultation Date/Type/Reason Admit Date/Time Dec 19, 2016 at 21:34 Initial Consult Date 12/20/16 Type of Consultation: ID Referring Provider: KAHLIL MARTEL Exam/Review of Systems Vital Signs Vitals Vital Signs Date Time Temp Pulse Resp B/P Pulse Ox O2 Delivery O2 Flow Rate FiO2 01/17/17 15:29 98.0 71 18 141/67 94 01/17/17 09:00 Nasal Cannula 4.0 01/16/17 11:15 30 Intake and Output 01/16/17 01/16/17 01/17/17 15:00 23:00 07:00 Intake Total 1215 ml 350 ml 300 ml Output Total 1400 ml 550 ml 2000 ml Balance -185 ml -200 ml -1700 ml Results Result Diagram: 01/17/17 0607 01/17/17 0607 Results 24 hrs Laboratory Tests Test 01/16/17 17:06 01/16/17 21:55 01/17/17 06:07 01/17/17 11:45 Bedside Glucose 106 Vancomycin Level Trough 9.4 L White Blood Count 13.7 H Red Blood Count 3.36 L Hemoglobin 10.5 L Hematocrit 32.5 L Mean Corpuscular Volume 96.7 Mean Corpuscular Hemoglobin 31.3 Mean Corpuscular Hemoglobin Concent 32.3 Red Cell Distribution Width 19.1 H Platelet Count 415 Mean Platelet Volume 11.3 H Neutrophils % 86.2 H Lymphocytes % 5.2 L Monocytes % 7.6 Eosinophils % 0.3 Basophils % 0.1 Nucleated Red Blood Cells % 0.0 Neutrophils # 11.8 H Lymphocytes # 0.7 L Monocytes # 1.0 H Eosinophils # 0.0 Basophils # 0.0 Nucleated Red Blood Cells # 0.0 Sodium Level 145 H Potassium Level 3.6 Chloride Level 100 Carbon Dioxide Level 29 Anion Gap 20 H Blood Urea Nitrogen 17 Creatinine 0.42 L Glucose Level 213 # Calcium Level 7.3 L Phosphorus Level 2.1 L Magnesium Level 1.5 L Total Bilirubin 3.5 H Direct Bilirubin 1.60 H Indirect Bilirubin 1.9 H Aspartate Amino Transf (AST/SGOT) 51 H Alanine Aminotransferase (ALT/SGPT) 31 Alkaline Phosphatase 171 H Lactate Dehydrogenase 2914 H Total Protein 6.0 L Albumin 3.3 Medications Medications Current Medications Ondansetron HCl (Zofran Inj) 4 mg Q6H PRN IV NAUSEA AND/OR VOMITING Last administered on 01/05/17 02:20; Admin Dose 4 MG; Start 12/20/16 at 07:30 Acetaminophen (Tylenol Tab) 650 mg Q6H PRN PO PAIN LEVEL 1-3 OR FEVER Last administered on 01/11/17 19:27; Admin Dose 650 MG; Start 12/20/16 at 07:30 Morphine Sulfate (morphine) 4 mg Q4H PRN IV SEVERE PAIN LEVEL 7-10 Last administered on 01/12/17 11:23; Admin Dose 4 MG; Start 12/20/16 at 07:30 Amlodipine Besylate (Norvasc) 5 mg DAILY PO Last administered on 01/16/17 08:35 ; Admin Dose 5 MG; Start 12/21/16 at 09:00 Acetaminophen/ Hydrocodone Bitart ([place] (5/325)) 1 tab Q6H PRN PO PAIN LEVEL 7 -10 Last administered on 01/03/17 21:54; Admin Dose 1 TAB; Start 12/30/16 at 18 :00 Hydromorphone HCl (Dilaudid) 1 mg Q4H PRN IV SEVERE PAIN LEVEL 7-10 Last administered on 01/05/17 02:21; Admin Dose 1 MG; Start 01/02/17 at 17:45 Senna (Senokot) 1 tab BID PO Last administered on 01/16/17 08:35; Admin Dose 1 TAB; Start 01/03/17 at 21:00 Lorazepam (Ativan) 1 mg Q1H PRN IV Seizures Last administered on 01/12/17 14:31 ; Admin Dose 1 MG; Start 01/04/17 at 19:30 IV Flush (NS 10 ml) 10 ml PRN PRN IV FLUSH LINE; Start 01/04/17 at 20:00 Morphine Sulfate (morphine) 2 mg Q4H PRN IV pain Last administered on 01/16/17 23:34; Admin Dose 2 MG; Start 01/05/17 at 01:30 Pantoprazole (Protonix Iv) 40 mg DAILY@06 IV Last administered on 01/17/17 05: 41; Admin Dose 40 MG; Start 01/05/17 at 06:30 Lorazepam (Ativan) 1 mg Q4H PRN IV agitation Last administered on 01/12/17 21: 54; Admin Dose 1 MG; Start 01/05/17 at 07:00 Hydralazine HCl 10 mg 10 mg Q2H PRN IV SBP >170 Last administered on 01/12/17 22:01; Admin Dose 10 MG; Start 01/06/17 at 03:00 Fluconazole/ Sodium Chloride 50 ml @ 50 mls/hr Q24H IVPB Last administered on 11:42; Admin Dose 50 MLS/HR; Start 01/07/17 at 12:00 Piperacillin Sod/ Tazobactam Sod 100 ml @ 200 mls/hr Q6 IVPB Last administered on 01/17/17 12:25; Admin Dose 200 MLS/HR; Start 01/09/17 at 12:00 Potassium Chloride/Dextrose (KCl/D5W) 1,015 ml @ 50 mls/hr [id number] IV Last administered on 01/17/17 06:52; Admin Dose 50 MLS/HR; Start 01/11/17 at 07:00 Methylprednisolone Sodium Succinate (Solu-Medrol) 40 mg DAILY IV Last administered on 01/17/17 09:13; Admin Dose 40 MG; Start 01/12/17 at 11:00 Miscellaneous Information 1 ea NOTE XX ; Start 01/15/17 at 10:30 Diphenhydramine HCl (Benadryl) 25 mg Q6H PRN IV SLEEP Last administered on 23:33; Admin Dose 25 MG; Start 01/15/17 at 13:30 Docusate Sodium 100 mg 100 mg BID PO Last administered on 01/17/17 09:13; Admin Dose 100 MG; Start 01/16/17 at 21:00 Vancomycin HCl (Vancocin) 250 ml @ 125 mls/hr Q12H IVPB Last administered on 10:04; Admin Dose 125 MLS/HR; Start 01/16/17 at 23:00 Furosemide (Lasix) 20 mg DAILY IV ; Start 01/18/17 at 09:00 Miscellaneous Information (*Rx Drug Level Order Reminder*) VANCO TROUGH ON ... ONCE ONCE XX ; Start 01/18/17 at 10:00; Stop 01/18/17 at 10:01 NANCY HULL NP Jan 17, 2017 16:12
--- NOTE | 2017-01-17 19:56 | CONS ---
Date/Time of Note Date/Time of Note DATE: 01/17/17 TIME: 19:54 Consult Date/Type/Reason Admit Date/Time Dec 19, 2016 at 21:34 Initial Consult Date 12/20/16 Type of Consultation: Pulmonary Ordering Provider: KAHLIL MARTEL Subjective Comfortable, no distress, mild abdo discomfort, Objective Vital Signs Date Time Temp Pulse Resp B/P Pulse Ox O2 Delivery O2 Flow Rate FiO2 01/17/17 16:10 76 01/17/17 15:29 98.0 18 141/67 94 01/17/17 09:00 Nasal Cannula 4.0 01/16/17 11:15 30 Intake and Output 01/16/17 01/16/17 01/17/17 15:00 23:00 07:00 Intake Total 1215 ml 350 ml 300 ml Output Total 1400 ml 550 ml 2000 ml Balance -185 ml -200 ml -1700 ml Exam Events GENERAL: Well-nourished well-developed lady comfortable VITAL SIGNS: per chart NECK: Supple. No JVD or lymphadenopathy. CARDIAC EXAM: S1, S2. No added sounds or murmurs. CHEST: clear bilaterally, No added sounds, rales or wheezes ABDOMEN: Soft, nontender. No guarding or rebound. Mild distention EXTREMITIES: No cyanosis, clubbing or edema. NEUROLOGIC: Generalized weakness. No focal deficits. Results/Medications Result Diagram: 01/17/17 0607 01/17/17 0607 Results 24 hrs Laboratory Tests Test 01/16/17 21:55 01/17/17 06:07 01/17/17 11:45 Vancomycin Level Trough 9.4 L White Blood Count 13.7 H Red Blood Count 3.36 L Hemoglobin 10.5 L Hematocrit 32.5 L Mean Corpuscular Volume 96.7 Mean Corpuscular Hemoglobin 31.3 Mean Corpuscular Hemoglobin Concent 32.3 Red Cell Distribution Width 19.1 H Platelet Count 415 Mean Platelet Volume 11.3 H Neutrophils % 86.2 H Lymphocytes % 5.2 L Monocytes % 7.6 Eosinophils % 0.3 Basophils % 0.1 Nucleated Red Blood Cells % 0.0 Neutrophils # 11.8 H Lymphocytes # 0.7 L Monocytes # 1.0 H Eosinophils # 0.0 Basophils # 0.0 Nucleated Red Blood Cells # 0.0 Sodium Level 145 H Potassium Level 3.6 Chloride Level 100 Carbon Dioxide Level 29 Anion Gap 20 H Blood Urea Nitrogen 17 Creatinine 0.42 L Glucose Level 213 # Calcium Level 7.3 L Phosphorus Level 2.1 L Magnesium Level 1.5 L Total Bilirubin 3.5 H Direct Bilirubin 1.60 H Indirect Bilirubin 1.9 H Aspartate Amino Transf (AST/SGOT) 51 H Alanine Aminotransferase (ALT/SGPT) 31 Alkaline Phosphatase 171 H Lactate Dehydrogenase 2914 H Total Protein 6.0 L Albumin 3.3 Medications Current Medications Ondansetron HCl (Zofran Inj) 4 mg Q6H PRN IV NAUSEA AND/OR VOMITING Last administered on 01/05/17 02:20; Admin Dose 4 MG; Start 12/20/16 at 07:30 Acetaminophen (Tylenol Tab) 650 mg Q6H PRN PO PAIN LEVEL 1-3 OR FEVER Last administered on 01/11/17 19:27; Admin Dose 650 MG; Start 12/20/16 at 07:30 Morphine Sulfate (morphine) 4 mg Q4H PRN IV SEVERE PAIN LEVEL 7-10 Last administered on 01/12/17 11:23; Admin Dose 4 MG; Start 12/20/16 at 07:30 Amlodipine Besylate (Norvasc) 5 mg DAILY PO Last administered on 01/16/17 08:35 ; Admin Dose 5 MG; Start 12/21/16 at 09:00 Acetaminophen/ Hydrocodone Bitart ([place] (5/325)) 1 tab Q6H PRN PO PAIN LEVEL 7 -10 Last administered on 01/03/17 21:54; Admin Dose 1 TAB; Start 12/30/16 at 18 :00 Hydromorphone HCl (Dilaudid) 1 mg Q4H PRN IV SEVERE PAIN LEVEL 7-10 Last administered on 01/05/17 02:21; Admin Dose 1 MG; Start 01/02/17 at 17:45 Senna (Senokot) 1 tab BID PO Last administered on 01/16/17 08:35; Admin Dose 1 TAB; Start 01/03/17 at 21:00 Lorazepam (Ativan) 1 mg Q1H PRN IV Seizures Last administered on 01/12/17 14:31 ; Admin Dose 1 MG; Start 01/04/17 at 19:30 IV Flush (NS 10 ml) 10 ml PRN PRN IV FLUSH LINE; Start 01/04/17 at 20:00 Morphine Sulfate (morphine) 2 mg Q4H PRN IV pain Last administered on 01/16/17 23:34; Admin Dose 2 MG; Start 01/05/17 at 01:30 Pantoprazole (Protonix Iv) 40 mg DAILY@06 IV Last administered on 01/17/17 05: 41; Admin Dose 40 MG; Start 01/05/17 at 06:30 Lorazepam (Ativan) 1 mg Q4H PRN IV agitation Last administered on 01/12/17 21: 54; Admin Dose 1 MG; Start 01/05/17 at 07:00 Hydralazine HCl 10 mg 10 mg Q2H PRN IV SBP >170 Last administered on 01/12/17 22:01; Admin Dose 10 MG; Start 01/06/17 at 03:00 Potassium Chloride/Dextrose (KCl/D5W) 1,015 ml @ 50 mls/hr [id number] IV Last administered on 01/17/17 06:52; Admin Dose 50 MLS/HR; Start 01/11/17 at 07:00 Methylprednisolone Sodium Succinate (Solu-Medrol) 40 mg DAILY IV Last administered on 01/17/17 09:13; Admin Dose 40 MG; Start 01/12/17 at 11:00 Miscellaneous Information 1 ea NOTE XX ; Start 01/15/17 at 10:30 Diphenhydramine HCl (Benadryl) 25 mg Q6H PRN IV SLEEP Last administered on 23:33; Admin Dose 25 MG; Start 01/15/17 at 13:30 Docusate Sodium (Colace) 100 mg BID PO Last administered on 01/17/17 09:13; Admin Dose 100 MG; Start 01/16/17 at 21:00 Furosemide (Lasix) 20 mg DAILY IV ; Start 01/18/17 at 09:00 Assessment/Plan Chief Complaint/Hosp Course IMP: 1. Status post septic Shock 2. Respiratory Failure secondary to hypoventilation from abdominal distention. Low lung volumes resulting in hypercapnia and hypoxemic respiratory failure 3. Encephalopathy, toxic metabolic improving 4. s/p GRICELDA 5. 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 Steroid exacerbated hyperglycemia RECS: 1. Continue BiPAP as needed., decrease as tolerated 2. Diuresis to continue 3. Continue corticosteroids for possible IgG4-related disease 4. Replete electrolytes 5. Encourage out of bed. Problems: JASON ROUSE MD, [facility] Jan 17, 2017 19:55
[2017-01-18] VITALS (12 sets, daily range): BP systolic 125–147; BP diastolic 73–78; PULSE 69–106; RESP 17–18
[2017-01-18] MEDS: PANTOPRAZOLE 40 MG INJ IV SCH (05:51)
[2017-01-18 06:22] LABS: ADD SCAN DIFF NO
[2017-01-18 06:44] LABS: BASOPHILS % 0.1 % (0.0-2.0); EOSINOPHILS # 0.1 10^3/ul (0.0-0.5); EOSINOPHILS % 0.6 % (0.0-7.0); HEMATOCRIT 37.6 % (37.0-47.0); HEMOGLOBIN 11.9 g/dl (12.0-16.0); LYMPHOCYTES # 0.9 10^3/ul (0.8-2.9); LYMPHOCYTES % 5.6 % (15.0-51.0); MEAN CORPUSCULAR HEMOGLOBIN 30.7 pg (29.0-33.0); MEAN CORPUSCULAR HGB CONC 31.6 g/dl (32.0-37.0); MEAN CORPUSCULAR VOLUME 97.2 fl (82.0-101.0); MEAN PLATELET VOLUME 11.3 fl (7.4-10.4); MONOCYTE # 1.3 10^3/ul (0.3-0.9); MONOCYTES % 7.7 % (0.0-11.0); NEUTROPHIL # 13.9 10^3/ul (1.6-7.5); NEUTROPHILS % 85.1 % (39.0-77.0); PLATELET COUNT 433 10^3/UL (140-415); RED BLOOD COUNT 3.87 10^6/ul (4.20-5.40); RED CELL DISTRIBUTION WIDTH 19.3 % (11.5-14.5); WHITE BLOOD COUNT 16.3 10^3/ul (4.8-10.8)
[2017-01-18 07:06] LABS: CALCIUM 9.4 mg/dl (8.4-10.2); CREATININE 0.5 mg/dl (0.44-1.00); MAGNESIUM 2.4 mg/dl (1.7-2.5); PHOSPHORUS 2.9 mg/dl (2.5-4.9); POTASSIUM 3.4 mmol/L (3.5-5.1)
[2017-01-18] MEDS: SENNA TAB PO SCH ×2 (09:05→21:18)
[2017-01-18] MEDS: DOCUSATE SODIUM 100 MG CAP PO SCH ×2 (09:05→21:18)
[2017-01-18] MEDS: AMLODIPINE 5 MG TAB PO SCH (09:05)
[2017-01-18] MEDS: FUROSEMIDE 20 MG INJ IV SCH (09:06)
[2017-01-18] MEDS: METHYLPREDNISOLONE 40 MG INJ IV SCH (09:06)
[2017-01-18] MEDS ORDERED: POTASSIUM CHLORIDE (SR) 20 MEQ TAB PO STA (09:44)
--- NOTE | 2017-01-18 10:53 | CONS ---
Date/Time of Note Date/Time of Note DATE: 01/18/17 TIME: 10:49 Consult Date/Type/Reason Admit Date/Time Dec 19, 2016 at 21:34 Initial Consult Date 12/26/16 Type of Consultation: neph Ordering Provider: KAHLIL MARTEL Patient transferred from ICU to telemetry. continues good uo. continues on d5 and lasix. Exam HEENT: Head is normocephalic. Pupils are reactive to light. NECK: Supple. HEART: Regular rate. LUNGS: Show diminished breath sounds at base. ABDOMEN: Soft, nontender to palpation. No rebound or guarding. EXTREMITIES: Negative for clubbing, cyanosis, no edema. DERMATOLOGIC: No rashes. MUSCULOSKELETAL: No joint effusions. NEUROLOGIC: No change in exam. Objective Vital Signs Date Time Temp Pulse Resp B/P Pulse Ox O2 Delivery O2 Flow Rate FiO2 01/18/17 09:07 3.0 01/18/17 08:20 69 01/18/17 07:07 97.8 18 147/77 98 01/17/17 20:15 Nasal Cannula 01/16/17 11:15 30 Intake and Output 01/17/17 01/17/17 01/18/17 15:00 23:00 07:00 Intake Total 750 ml 2050 ml Output Total 1875 ml Balance 750 ml 175 ml Results/Medications Result Diagram: 01/18/17 0550 01/18/17 0500 Results 24 hrs Laboratory Tests Test 01/17/17 11:45 01/18/17 05:00 01/18/17 05:50 Total Bilirubin 3.5 H Direct Bilirubin 1.60 H Indirect Bilirubin 1.9 H Aspartate Amino Transf (AST/SGOT) 51 H Alanine Aminotransferase (ALT/SGPT) 31 Alkaline Phosphatase 171 H Lactate Dehydrogenase 2914 H Total Protein 6.0 L Albumin 3.3 Sodium Level 143 Potassium Level 3.4 L Chloride Level 98 Carbon Dioxide Level 33 H Anion Gap 15 Blood Urea Nitrogen 19 Creatinine 0.50 Glucose Level 80 # Calcium Level 9.4 Phosphorus Level 2.9 Magnesium Level 2.4 White Blood Count 16.3 H Red Blood Count 3.87 L Hemoglobin 11.9 L Hematocrit 37.6 Mean Corpuscular Volume 97.2 Mean Corpuscular Hemoglobin 30.7 Mean Corpuscular Hemoglobin Concent 31.6 L Red Cell Distribution Width 19.3 H Platelet Count 433 H Mean Platelet Volume 11.3 H Neutrophils % 85.1 H Lymphocytes % 5.6 L Monocytes % 7.7 Eosinophils % 0.6 Basophils % 0.1 Nucleated Red Blood Cells % 0.0 Neutrophils # 13.9 H Lymphocytes # 0.9 Monocytes # 1.3 H Eosinophils # 0.1 Basophils # 0.0 Nucleated Red Blood Cells # 0.0 Medications Current Medications Ondansetron HCl (Zofran Inj) 4 mg Q6H PRN IV NAUSEA AND/OR VOMITING Last administered on 01/05/17 02:20; Admin Dose 4 MG; Start 12/20/16 at 07:30 Acetaminophen (Tylenol Tab) 650 mg Q6H PRN PO PAIN LEVEL 1-3 OR FEVER Last administered on 01/11/17 19:27; Admin Dose 650 MG; Start 12/20/16 at 07:30 Morphine Sulfate (morphine) 4 mg Q4H PRN IV SEVERE PAIN LEVEL 7-10 Last administered on 01/12/17 11:23; Admin Dose 4 MG; Start 12/20/16 at 07:30 Amlodipine Besylate (Norvasc) 5 mg DAILY PO Last administered on 01/18/17 09:05 ; Admin Dose 5 MG; Start 12/21/16 at 09:00 Acetaminophen/ Hydrocodone Bitart ([place] (5/325)) 1 tab Q6H PRN PO PAIN LEVEL 7 -10 Last administered on 01/03/17 21:54; Admin Dose 1 TAB; Start 12/30/16 at 18 :00 Hydromorphone HCl (Dilaudid) 1 mg Q4H PRN IV SEVERE PAIN LEVEL 7-10 Last administered on 01/05/17 02:21; Admin Dose 1 MG; Start 01/02/17 at 17:45 Senna (Senokot) 1 tab BID PO Last administered on 01/18/17 09:05; Admin Dose 1 TAB; Start 01/03/17 at 21:00 Lorazepam (Ativan) 1 mg Q1H PRN IV Seizures Last administered on 01/12/17 14:31 ; Admin Dose 1 MG; Start 01/04/17 at 19:30 IV Flush (NS 10 ml) 10 ml PRN PRN IV FLUSH LINE; Start 01/04/17 at 20:00 Morphine Sulfate (morphine) 2 mg Q4H PRN IV pain Last administered on 01/16/17 23:34; Admin Dose 2 MG; Start 01/05/17 at 01:30 Pantoprazole (Protonix Iv) 40 mg DAILY@06 IV Last administered on 01/18/17 05: 51; Admin Dose 40 MG; Start 01/05/17 at 06:30 Lorazepam (Ativan) 1 mg Q4H PRN IV agitation Last administered on 01/12/17 21: 54; Admin Dose 1 MG; Start 01/05/17 at 07:00 Hydralazine HCl 10 mg 10 mg Q2H PRN IV SBP >170 Last administered on 01/12/17 22:01; Admin Dose 10 MG; Start 01/06/17 at 03:00 Potassium Chloride/Dextrose (KCl/D5W) 1,015 ml @ 50 mls/hr [id number] IV Last administered on 01/17/17 06:52; Admin Dose 50 MLS/HR; Start 01/11/17 at 07:00 Methylprednisolone Sodium Succinate (Solu-Medrol) 40 mg DAILY IV Last administered on 01/18/17 09:06; Admin Dose 40 MG; Start 01/12/17 at 11:00 Miscellaneous Information 1 ea NOTE XX ; Start 01/15/17 at 10:30 Diphenhydramine HCl (Benadryl) 25 mg Q6H PRN IV SLEEP Last administered on 23:33; Admin Dose 25 MG; Start 01/15/17 at 13:30 Docusate Sodium (Colace) 100 mg BID PO Last administered on 01/18/17 09:05; Admin Dose 100 MG; Start 01/16/17 at 21:00 Furosemide (Lasix) 20 mg DAILY IV Last administered on 01/18/17 09:06; Admin Dose 20 MG; Start 01/18/17 at 09:00 Assessment/Plan Chief Complaint/Hosp Course 1. Nonoliguric acute kidney injury with previously normal baseline creatinine. Etiology secondary to acute tubular necrosis due to severe anemia, ischemic hypoperfusion, shock. - Patient's renal function has stabilized, - continue current treatment plan, supportive care, renally dose all medications. 2. s/p intra-abdominal bleed. -Hemoglobin levels have been stable. Continue to monitor 3. Volume overload. Improving continue with diuretic therapy 4. Hypernatremia -Improved Continue- D5W decrease rate -Monitor serial sodium levels 3. Mineral bone disease. Will continue to monitor calcium, phosphorus levels. Replace phosphorus 4. hypokalemia/hypomagnesemia. Monitor and replace as needed 5. Sepsis. status post shock, currently off pressor support. Continue current antibiotic regimen. 6. Hypoxemic respiratory failure. Patient BIPAP. Continue to monitor. Follow -up with pulmonary. CT angiogram showed no evidence of PE 7. Portal vein thrombosis. 8. Multiple liver lesions status post biopsy. Findings consistent with possible lymphoplasmacytic involvement will continue to monitor. Follow up with hematology. 9. Uterine mass. Followup with Gynecology/Oncology. Status post code arrest. Problems: FERNANDO HAYWARD MD Jan 18, 2017 10:52
--- NOTE | 2017-01-18 11:04 | PN ---
Date/Time of Note Date/Time of Note DATE: 01/18/17 TIME: 11:00 Assessment/Plan VTE Prophylaxis VTE Prophylaxis Intervention: other (per primary MD) Lines/Catheters IV Catheter Type (from Nrs): PICC Line Central line still needed: Yes Urinary Cath still in place: No Assessment/Plan Assessment/Plan Etiology of the jaundice is not clear but it seems to be improving. Hgb is good and there is no current evidence of hemolysis. Perhaps there was a transient episode since the LFT's look good. Will follow. No bleeding noted and she is clinically improving. Subjective 24 Hr Interval Summary Free Text/Dictation Pt is feeling better and is up in a chair. Exam/Review of Systems Vital Signs Vitals Vital Signs Date Time Temp Pulse Resp B/P Pulse Ox O2 Delivery O2 Flow Rate FiO2 01/18/17 09:07 3.0 01/18/17 08:20 69 01/18/17 07:07 97.8 18 147/77 98 01/17/17 20:15 Nasal Cannula 01/16/17 11:15 30 Intake and Output 01/17/17 01/17/17 01/18/17 15:00 23:00 07:00 Intake Total 750 ml 2050 ml Output Total 1875 ml Balance 750 ml 175 ml Exam Constitutional: alert, oriented Head: normocephalic Eyes: other (mildly icteric) Respiratory: clear to auscultation Cardiovascular: regular rate and rhythm Gastrointestinal: non-tender, soft Results Result Diagram: 01/18/17 0550 01/18/17 0500 Results 24 hrs Laboratory Tests Test 01/17/17 11:45 01/18/17 05:00 01/18/17 05:50 Total Bilirubin 3.5 H Direct Bilirubin 1.60 H Indirect Bilirubin 1.9 H Aspartate Amino Transf (AST/SGOT) 51 H Alanine Aminotransferase (ALT/SGPT) 31 Alkaline Phosphatase 171 H Lactate Dehydrogenase 2914 H Total Protein 6.0 L Albumin 3.3 Sodium Level 143 Potassium Level 3.4 L Chloride Level 98 Carbon Dioxide Level 33 H Anion Gap 15 Blood Urea Nitrogen 19 Creatinine 0.50 Glucose Level 80 # Calcium Level 9.4 Phosphorus Level 2.9 Magnesium Level 2.4 White Blood Count 16.3 H Red Blood Count 3.87 L Hemoglobin 11.9 L Hematocrit 37.6 Mean Corpuscular Volume 97.2 Mean Corpuscular Hemoglobin 30.7 Mean Corpuscular Hemoglobin Concent 31.6 L Red Cell Distribution Width 19.3 H Platelet Count 433 H Mean Platelet Volume 11.3 H Neutrophils % 85.1 H Lymphocytes % 5.6 L Monocytes % 7.7 Eosinophils % 0.6 Basophils % 0.1 Nucleated Red Blood Cells % 0.0 Neutrophils # 13.9 H Lymphocytes # 0.9 Monocytes # 1.3 H Eosinophils # 0.1 Basophils # 0.0 Nucleated Red Blood Cells # 0.0 Medications Medications Current Medications Ondansetron HCl (Zofran Inj) 4 mg Q6H PRN IV NAUSEA AND/OR VOMITING Last administered on 01/05/17 02:20; Admin Dose 4 MG; Start 12/20/16 at 07:30 Acetaminophen (Tylenol Tab) 650 mg Q6H PRN PO PAIN LEVEL 1-3 OR FEVER Last administered on 01/11/17 19:27; Admin Dose 650 MG; Start 12/20/16 at 07:30 Morphine Sulfate (morphine) 4 mg Q4H PRN IV SEVERE PAIN LEVEL 7-10 Last administered on 01/12/17 11:23; Admin Dose 4 MG; Start 12/20/16 at 07:30 Amlodipine Besylate (Norvasc) 5 mg DAILY PO Last administered on 01/18/17 09:05 ; Admin Dose 5 MG; Start 12/21/16 at 09:00 Acetaminophen/ Hydrocodone Bitart ([place] (5/325)) 1 tab Q6H PRN PO PAIN LEVEL 7 -10 Last administered on 01/03/17 21:54; Admin Dose 1 TAB; Start 12/30/16 at 18 :00 Hydromorphone HCl (Dilaudid) 1 mg Q4H PRN IV SEVERE PAIN LEVEL 7-10 Last administered on 01/05/17 02:21; Admin Dose 1 MG; Start 01/02/17 at 17:45 Senna (Senokot) 1 tab BID PO Last administered on 01/18/17 09:05; Admin Dose 1 TAB; Start 01/03/17 at 21:00 Lorazepam (Ativan) 1 mg Q1H PRN IV Seizures Last administered on 01/12/17 14:31 ; Admin Dose 1 MG; Start 01/04/17 at 19:30 IV Flush (NS 10 ml) 10 ml PRN PRN IV FLUSH LINE; Start 01/04/17 at 20:00 Morphine Sulfate (morphine) 2 mg Q4H PRN IV pain Last administered on 01/16/17 23:34; Admin Dose 2 MG; Start 01/05/17 at 01:30 Pantoprazole (Protonix Iv) 40 mg DAILY@06 IV Last administered on 01/18/17 05: 51; Admin Dose 40 MG; Start 01/05/17 at 06:30 Lorazepam (Ativan) 1 mg Q4H PRN IV agitation Last administered on 01/12/17 21: 54; Admin Dose 1 MG; Start 01/05/17 at 07:00 Hydralazine HCl 10 mg 10 mg Q2H PRN IV SBP >170 Last administered on 01/12/17 22:01; Admin Dose 10 MG; Start 01/06/17 at 03:00 Potassium Chloride/Dextrose (KCl/D5W) 1,015 ml @ 50 mls/hr [id number] IV Last administered on 01/17/17 06:52; Admin Dose 50 MLS/HR; Start 01/11/17 at 07:00 Methylprednisolone Sodium Succinate (Solu-Medrol) 40 mg DAILY IV Last administered on 01/18/17 09:06; Admin Dose 40 MG; Start 01/12/17 at 11:00 Miscellaneous Information 1 ea NOTE XX ; Start 01/15/17 at 10:30 Diphenhydramine HCl (Benadryl) 25 mg Q6H PRN IV SLEEP Last administered on 23:33; Admin Dose 25 MG; Start 01/15/17 at 13:30 Docusate Sodium (Colace) 100 mg BID PO Last administered on 01/18/17 09:05; Admin Dose 100 MG; Start 01/16/17 at 21:00 Furosemide (Lasix) 20 mg DAILY IV Last administered on 01/18/17 09:06; Admin Dose 20 MG; Start 01/18/17 at 09:00 BENJY TONG MD Jan 18, 2017 11:04
--- NOTE | 2017-01-18 11:15 | PN ---
Date/Time of Note Date/Time of Note DATE: 01/18/17 TIME: 11:10 Assessment/Plan VTE Prophylaxis VTE Prophylaxis Intervention: ambulation Lines/Catheters IV Catheter Type (from Nrs): PICC Line Central line still needed: Yes Urinary Cath still in place: No Assessment/Plan Assessment/Plan Assessment/Plan 1. Acute respiratory failure managed by pulmonary 2. Anemia acute CT scan Intraabdominal hemorrhage Very large mixed density acute subcapsular hematoma of the liver with moderate blood seen throughout the abdomen and pelvis. Right lower lobe atelectasis or infiltrate and small bilateral effusions. Horseshoe kidneys 3. Transaminitis 4. 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 COMMENT: This case has been reviewed by Dr. Carlos Garcia of [facility] who essentially concurs with our interpretation and he states that the histopathological features are suggestive of but not characteristic for inflammatory (myofibroblastic) pseudotumor, and due to difficulty in assessing IgG4/IgG ratio due to diffuse background staining a diagnosis of sclerosing cholangitis, which can be seen in IgG4-associated liver disease cannot be made at this time. Please see attached consultation report. 5. Portal vein thrombosis Plan * continue present management * will continue to trend transaminases level * case discussed with Dr Raphael * Further orders will depend on clinical course Subjective 24 Hr Interval Summary Free Text/Dictation * Course reviewed * Patient seen and examined * No untoward events overnight * Improving ALT/AST * Hemoglobin 11.9 Exam/Review of Systems Vital Signs Vitals Vital Signs Date Time Temp Pulse Resp B/P Pulse Ox O2 Delivery O2 Flow Rate FiO2 01/18/17 09:07 3.0 01/18/17 08:20 69 01/18/17 07:07 97.8 18 147/77 98 01/17/17 20:15 Nasal Cannula 01/16/17 11:15 30 Intake and Output 01/17/17 01/17/17 01/18/17 15:00 23:00 07:00 Intake Total 750 ml 2050 ml Output Total 1875 ml Balance 750 ml 175 ml Exam Constitutional: alert, oriented Head: normocephalic Neck: non-tender, supple Respiratory: clear to auscultation, normal air movement Cardiovascular: nl pulses, regular rate and rhythm Gastrointestinal: distended, non-tender, soft Musculoskeletal: nl extremities to inspection, nl gait and stance Extremities: normal pulses Neurological: nl speech, nl strength Skin: nl turgor, No rash or lesions Lymph: nl lymph nodes Results Result Diagram: 01/18/17 0550 01/18/17 0500 Results 24 hrs Laboratory Tests Test 01/17/17 11:45 01/18/17 05:00 01/18/17 05:50 Plasma Free Hemoglobin Pending Haptoglobin Total Bilirubin 3.5 H Direct Bilirubin 1.60 H Indirect Bilirubin 1.9 H Aspartate Amino Transf (AST/SGOT) 51 H Alanine Aminotransferase (ALT/SGPT) 31 Alkaline Phosphatase 171 H Lactate Dehydrogenase 2914 H Total Protein 6.0 L Albumin 3.3 Sodium Level 143 Potassium Level 3.4 L Chloride Level 98 Carbon Dioxide Level 33 H Anion Gap 15 Blood Urea Nitrogen 19 Creatinine 0.50 Glucose Level 80 # Calcium Level 9.4 Phosphorus Level 2.9 Magnesium Level 2.4 White Blood Count 16.3 H Red Blood Count 3.87 L Hemoglobin 11.9 L Hematocrit 37.6 Mean Corpuscular Volume 97.2 Mean Corpuscular Hemoglobin 30.7 Mean Corpuscular Hemoglobin Concent 31.6 L Red Cell Distribution Width 19.3 H Platelet Count 433 H Mean Platelet Volume 11.3 H Neutrophils % 85.1 H Lymphocytes % 5.6 L Monocytes % 7.7 Eosinophils % 0.6 Basophils % 0.1 Nucleated Red Blood Cells % 0.0 Neutrophils # 13.9 H Lymphocytes # 0.9 Monocytes # 1.3 H Eosinophils # 0.1 Basophils # 0.0 Nucleated Red Blood Cells # 0.0 Medications Medications Current Medications Ondansetron HCl (Zofran Inj) 4 mg Q6H PRN IV NAUSEA AND/OR VOMITING Last administered on 01/05/17 02:20; Admin Dose 4 MG; Start 12/20/16 at 07:30 Acetaminophen (Tylenol Tab) 650 mg Q6H PRN PO PAIN LEVEL 1-3 OR FEVER Last administered on 01/11/17 19:27; Admin Dose 650 MG; Start 12/20/16 at 07:30 Morphine Sulfate (morphine) 4 mg Q4H PRN IV SEVERE PAIN LEVEL 7-10 Last administered on 01/12/17 11:23; Admin Dose 4 MG; Start 12/20/16 at 07:30 Amlodipine Besylate (Norvasc) 5 mg DAILY PO Last administered on 01/18/17 09:05 ; Admin Dose 5 MG; Start 12/21/16 at 09:00 Acetaminophen/ Hydrocodone Bitart ([place] (5/325)) 1 tab Q6H PRN PO PAIN LEVEL 7 -10 Last administered on 01/03/17 21:54; Admin Dose 1 TAB; Start 12/30/16 at 18 :00 Hydromorphone HCl (Dilaudid) 1 mg Q4H PRN IV SEVERE PAIN LEVEL 7-10 Last administered on 01/05/17 02:21; Admin Dose 1 MG; Start 01/02/17 at 17:45 Senna (Senokot) 1 tab BID PO Last administered on 01/18/17 09:05; Admin Dose 1 TAB; Start 01/03/17 at 21:00 Lorazepam (Ativan) 1 mg Q1H PRN IV Seizures Last administered on 01/12/17 14:31 ; Admin Dose 1 MG; Start 01/04/17 at 19:30 IV Flush (NS 10 ml) 10 ml PRN PRN IV FLUSH LINE; Start 01/04/17 at 20:00 Morphine Sulfate (morphine) 2 mg Q4H PRN IV pain Last administered on 01/16/17 23:34; Admin Dose 2 MG; Start 01/05/17 at 01:30 Pantoprazole (Protonix Iv) 40 mg DAILY@06 IV Last administered on 01/18/17 05: 51; Admin Dose 40 MG; Start 01/05/17 at 06:30 Lorazepam (Ativan) 1 mg Q4H PRN IV agitation Last administered on 01/12/17 21: 54; Admin Dose 1 MG; Start 01/05/17 at 07:00 Hydralazine HCl 10 mg 10 mg Q2H PRN IV SBP >170 Last administered on 01/12/17 22:01; Admin Dose 10 MG; Start 01/06/17 at 03:00 Potassium Chloride/Dextrose (KCl/D5W) 1,015 ml @ 50 mls/hr [id number] IV Last administered on 01/17/17 06:52; Admin Dose 50 MLS/HR; Start 01/11/17 at 07:00 Methylprednisolone Sodium Succinate (Solu-Medrol) 40 mg DAILY IV Last administered on 01/18/17 09:06; Admin Dose 40 MG; Start 01/12/17 at 11:00 Miscellaneous Information 1 ea NOTE XX ; Start 01/15/17 at 10:30 Diphenhydramine HCl (Benadryl) 25 mg Q6H PRN IV SLEEP Last administered on 23:33; Admin Dose 25 MG; Start 01/15/17 at 13:30 Docusate Sodium (Colace) 100 mg BID PO Last administered on 01/18/17 09:05; Admin Dose 100 MG; Start 01/16/17 at 21:00 Furosemide (Lasix) 20 mg DAILY IV Last administered on 01/18/17 09:06; Admin Dose 20 MG; Start 01/18/17 at 09:00 NARENDRA FINLEY NP Jan 18, 2017 11:15
--- NOTE | 2017-01-18 13:27 | PN ---
Date/Time of Note Date/Time of Note DATE: 01/18/17 TIME: 13:25 Assessment/Plan VTE Prophylaxis VTE Prophylaxis Intervention: SCD's Lines/Catheters Urinary Cath still in place: No Assessment/Plan Chief Complaint/Hosp Course 1. Severe systemic shock likely hypovolemic from acute intra-abdominal hemorrhage / subcapsular hepatic hematoma causing severe coagulopathy: resolved 2. Persistent resp failure 2/2 aspiration pneumonia: extubated now 3. Acute encephalopathy secondary to pneumonia-resolved 4. Recurrence of acute kidney injury secondary to #1: improving 5. 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 Hypertension: better control 7. Diffuse venous thrombosis to include hepatic, portal, and right upper extremity veins 8. Status post alpha hemolytic strep bacteremia 9. Solitary seizure episode likely secondary to #1 10. Acute transaminitis and coagulopathy secondary to subcapsular hematoma s/ p status post hepatic artery ligation versus embolization via IR : Improving 11. Maurice Pneumonia R >>L. * Had lung nodules on admission likely 2/2 pneumonia, no longer present on CT 12. Debility 13. Mild hepatic infarct on CT likely related to #10 14. Persistent hypokalemia and hypophosphatemia 15. Jaundice-bilirubin trending down Plan: * Resp status is improving is no longer requiring BiPAP and is stable with nasal cannula * Patient remains on D5 water with potassium chloride, but is also on Lasix for diuresis * Monitor and replace electrolytes * Continue to closely monitor hemoglobin levels and liver function * Patient remains off anticoagulation d/t bleeding * Patient continues on Abx per ID * No further seizures * Regarding uterine lesion, per Dr. Jaimes of gynecology oncology no indication for biopsy or further intervention as patient is asymptomatic and masses are believed to be secondary to fibroids Prophylaxis: SCDs/IV PPI Discharge planning: Anticipate DC home in 1-2 days Problems: Subjective 24 Hr Interval Summary Constitutional: no complaints Exam/Review of Systems Vital Signs Vitals Vital Signs Date Time Temp Pulse Resp B/P Pulse Ox O2 Delivery O2 Flow Rate FiO2 01/18/17 12:12 97 01/18/17 11:13 98.6 18 131/78 98 01/18/17 09:07 3.0 01/18/17 08:20 Nasal Cannula 01/16/17 11:15 30 Intake and Output 01/17/17 01/17/17 01/18/17 15:00 23:00 07:00 Intake Total 750 ml 2050 ml Output Total 1875 ml Balance 750 ml 175 ml Exam Constitutional: alert Respiratory: clear to auscultation Cardiovascular: regular rate and rhythm Gastrointestinal: soft, No distended Musculoskeletal: nl extremities to inspection Results Result Diagram: 01/18/17 0550 01/18/17 0500 Results 24 hrs Laboratory Tests Test 01/18/17 05:00 01/18/17 05:50 Sodium Level 143 Potassium Level 3.4 L Chloride Level 98 Carbon Dioxide Level 33 H Anion Gap 15 Blood Urea Nitrogen 19 Creatinine 0.50 Glucose Level 80 # Calcium Level 9.4 Phosphorus Level 2.9 Magnesium Level 2.4 White Blood Count 16.3 H Red Blood Count 3.87 L Hemoglobin 11.9 L Hematocrit 37.6 Mean Corpuscular Volume 97.2 Mean Corpuscular Hemoglobin 30.7 Mean Corpuscular Hemoglobin Concent 31.6 L Red Cell Distribution Width 19.3 H Platelet Count 433 H Mean Platelet Volume 11.3 H Neutrophils % 85.1 H Lymphocytes % 5.6 L Monocytes % 7.7 Eosinophils % 0.6 Basophils % 0.1 Nucleated Red Blood Cells % 0.0 Neutrophils # 13.9 H Lymphocytes # 0.9 Monocytes # 1.3 H Eosinophils # 0.1 Basophils # 0.0 Nucleated Red Blood Cells # 0.0 Medications Medications Current Medications Ondansetron HCl (Zofran Inj) 4 mg Q6H PRN IV NAUSEA AND/OR VOMITING Last administered on 01/05/17 02:20; Admin Dose 4 MG; Start 12/20/16 at 07:30 Acetaminophen (Tylenol Tab) 650 mg Q6H PRN PO PAIN LEVEL 1-3 OR FEVER Last administered on 01/11/17 19:27; Admin Dose 650 MG; Start 12/20/16 at 07:30 Morphine Sulfate (morphine) 4 mg Q4H PRN IV SEVERE PAIN LEVEL 7-10 Last administered on 01/12/17 11:23; Admin Dose 4 MG; Start 12/20/16 at 07:30 Amlodipine Besylate (Norvasc) 5 mg DAILY PO Last administered on 01/18/17 09:05 ; Admin Dose 5 MG; Start 12/21/16 at 09:00 Acetaminophen/ Hydrocodone Bitart ([place] (5/325)) 1 tab Q6H PRN PO PAIN LEVEL 7 -10 Last administered on 01/03/17 21:54; Admin Dose 1 TAB; Start 12/30/16 at 18 :00 Hydromorphone HCl (Dilaudid) 1 mg Q4H PRN IV SEVERE PAIN LEVEL 7-10 Last administered on 01/05/17 02:21; Admin Dose 1 MG; Start 01/02/17 at 17:45 Senna (Senokot) 1 tab BID PO Last administered on 01/18/17 09:05; Admin Dose 1 TAB; Start 01/03/17 at 21:00 Lorazepam (Ativan) 1 mg Q1H PRN IV Seizures Last administered on 01/12/17 14:31 ; Admin Dose 1 MG; Start 01/04/17 at 19:30 IV Flush (NS 10 ml) 10 ml PRN PRN IV FLUSH LINE; Start 01/04/17 at 20:00 Morphine Sulfate (morphine) 2 mg Q4H PRN IV pain Last administered on 01/16/17 23:34; Admin Dose 2 MG; Start 01/05/17 at 01:30 Pantoprazole (Protonix Iv) 40 mg DAILY@06 IV Last administered on 01/18/17 05: 51; Admin Dose 40 MG; Start 01/05/17 at 06:30 Lorazepam (Ativan) 1 mg Q4H PRN IV agitation Last administered on 01/12/17 21: 54; Admin Dose 1 MG; Start 01/05/17 at 07:00 Hydralazine HCl 10 mg 10 mg Q2H PRN IV SBP >170 Last administered on 01/12/17 22:01; Admin Dose 10 MG; Start 01/06/17 at 03:00 Potassium Chloride/Dextrose (KCl/D5W) 1,015 ml @ 50 mls/hr [id number] IV Last administered on 01/17/17 06:52; Admin Dose 50 MLS/HR; Start 01/11/17 at 07:00 Methylprednisolone Sodium Succinate (Solu-Medrol) 40 mg DAILY IV Last administered on 01/18/17 09:06; Admin Dose 40 MG; Start 01/12/17 at 11:00 Miscellaneous Information 1 ea NOTE XX ; Start 01/15/17 at 10:30 Diphenhydramine HCl (Benadryl) 25 mg Q6H PRN IV SLEEP Last administered on 23:33; Admin Dose 25 MG; Start 01/15/17 at 13:30 Docusate Sodium (Colace) 100 mg BID PO Last administered on 01/18/17 09:05; Admin Dose 100 MG; Start 01/16/17 at 21:00 Furosemide (Lasix) 20 mg DAILY IV Last administered on 01/18/17 09:06; Admin Dose 20 MG; Start 01/18/17 at 09:00 SHELLEY VALENCIA Jan 18, 2017 13:27
--- NOTE | 2017-01-18 16:42 | CONS ---
Date/Time of Note Date/Time of Note DATE: 01/18/17 TIME: 16:41 Assessment/Plan Assessment/Plan Chief Complaint/Hosp Course No acute events overnight, patient is alert, sitting in a chair and eating dinner, denies pain discomfort, family at bedside Indwelling's: Lau catheter PICC line Physical examination: Morbidly obese, well-developed middle-aged woman who is alert in no distress. Head atraumatic normocephalic, sclera nonicteric. Neck is obese, trachea midline. Chest rise symmetrical breath sounds diminished basis. Heart S1-S2. Abdomen soft distended bowel tones hypoactive. Extremities with trace edema Assessment: 1. Status post acute respiratory failure 2. Status post healthcare associated pneumonia 3. Status post hepatic hemorrhage secondary to liver biopsy 4. 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 Hepatic and portal vein thrombosis 6. Status post streptococcal bacteremia on admission with repeat blood cultures being negative 7. Uterine lesion, possibly malignant Plan: Doing better, completed antibiotics, continue present care, follow recommendations of consultants, repeat cultures as needed Discussed with staff Discussed with family at bedside Problems: Consultation Date/Type/Reason Admit Date/Time Dec 19, 2016 at 21:34 Initial Consult Date 12/20/16 Type of Consultation: Infectious disease Referring Provider: KAHLIL MARTEL Exam/Review of Systems Vital Signs Vitals Vital Signs Date Time Temp Pulse Resp B/P Pulse Ox O2 Delivery O2 Flow Rate FiO2 01/18/17 15:29 98.6 101 18 125/78 92 01/18/17 09:07 3.0 01/18/17 08:20 Nasal Cannula 01/16/17 11:15 30 Intake and Output 01/17/17 01/17/17 01/18/17 15:00 23:00 07:00 Intake Total 750 ml 2050 ml Output Total 1875 ml Balance 750 ml 175 ml Results Result Diagram: 01/18/17 0550 01/18/17 0500 Results 24 hrs Laboratory Tests Test 01/18/17 05:00 01/18/17 05:50 Sodium Level 143 Potassium Level 3.4 L Chloride Level 98 Carbon Dioxide Level 33 H Anion Gap 15 Blood Urea Nitrogen 19 Creatinine 0.50 Glucose Level 80 # Calcium Level 9.4 Phosphorus Level 2.9 Magnesium Level 2.4 White Blood Count 16.3 H Red Blood Count 3.87 L Hemoglobin 11.9 L Hematocrit 37.6 Mean Corpuscular Volume 97.2 Mean Corpuscular Hemoglobin 30.7 Mean Corpuscular Hemoglobin Concent 31.6 L Red Cell Distribution Width 19.3 H Platelet Count 433 H Mean Platelet Volume 11.3 H Neutrophils % 85.1 H Lymphocytes % 5.6 L Monocytes % 7.7 Eosinophils % 0.6 Basophils % 0.1 Nucleated Red Blood Cells % 0.0 Neutrophils # 13.9 H Lymphocytes # 0.9 Monocytes # 1.3 H Eosinophils # 0.1 Basophils # 0.0 Nucleated Red Blood Cells # 0.0 Medications Medications Current Medications Ondansetron HCl (Zofran Inj) 4 mg Q6H PRN IV NAUSEA AND/OR VOMITING Last administered on 01/05/17 02:20; Admin Dose 4 MG; Start 12/20/16 at 07:30 Acetaminophen (Tylenol Tab) 650 mg Q6H PRN PO PAIN LEVEL 1-3 OR FEVER Last administered on 01/11/17 19:27; Admin Dose 650 MG; Start 12/20/16 at 07:30 Morphine Sulfate (morphine) 4 mg Q4H PRN IV SEVERE PAIN LEVEL 7-10 Last administered on 01/12/17 11:23; Admin Dose 4 MG; Start 12/20/16 at 07:30 Amlodipine Besylate (Norvasc) 5 mg DAILY PO Last administered on 01/18/17 09:05 ; Admin Dose 5 MG; Start 12/21/16 at 09:00 Acetaminophen/ Hydrocodone Bitart ([place] (5/325)) 1 tab Q6H PRN PO PAIN LEVEL 7 -10 Last administered on 01/03/17 21:54; Admin Dose 1 TAB; Start 12/30/16 at 18 :00 Hydromorphone HCl (Dilaudid) 1 mg Q4H PRN IV SEVERE PAIN LEVEL 7-10 Last administered on 01/05/17 02:21; Admin Dose 1 MG; Start 01/02/17 at 17:45 Senna (Senokot) 1 tab BID PO Last administered on 01/18/17 09:05; Admin Dose 1 TAB; Start 01/03/17 at 21:00 Lorazepam (Ativan) 1 mg Q1H PRN IV Seizures Last administered on 01/12/17 14:31 ; Admin Dose 1 MG; Start 01/04/17 at 19:30 IV Flush (NS 10 ml) 10 ml PRN PRN IV FLUSH LINE; Start 01/04/17 at 20:00 Morphine Sulfate (morphine) 2 mg Q4H PRN IV pain Last administered on 01/16/17 23:34; Admin Dose 2 MG; Start 01/05/17 at 01:30 Pantoprazole (Protonix Iv) 40 mg DAILY@06 IV Last administered on 01/18/17 05: 51; Admin Dose 40 MG; Start 01/05/17 at 06:30 Lorazepam (Ativan) 1 mg Q4H PRN IV agitation Last administered on 01/12/17 21: 54; Admin Dose 1 MG; Start 01/05/17 at 07:00 Hydralazine HCl 10 mg 10 mg Q2H PRN IV SBP >170 Last administered on 01/12/17 22:01; Admin Dose 10 MG; Start 01/06/17 at 03:00 Potassium Chloride/Dextrose (KCl/D5W) 1,015 ml @ 50 mls/hr [id number] IV Last administered on 01/17/17 06:52; Admin Dose 50 MLS/HR; Start 01/11/17 at 07:00 Methylprednisolone Sodium Succinate (Solu-Medrol) 40 mg DAILY IV Last administered on 01/18/17 09:06; Admin Dose 40 MG; Start 01/12/17 at 11:00 Miscellaneous Information 1 ea NOTE XX ; Start 01/15/17 at 10:30 Diphenhydramine HCl (Benadryl) 25 mg Q6H PRN IV SLEEP Last administered on 23:33; Admin Dose 25 MG; Start 01/15/17 at 13:30 Docusate Sodium (Colace) 100 mg BID PO Last administered on 01/18/17 09:05; Admin Dose 100 MG; Start 01/16/17 at 21:00 Furosemide (Lasix) 20 mg DAILY IV Last administered on 01/18/17 09:06; Admin Dose 20 MG; Start 01/18/17 at 09:00 NANCY HULL NP Jan 18, 2017 16:42
--- NOTE | 2017-01-18 16:45 | PN ---
Date/Time of Note Date/Time of Note DATE: 01/18/17 TIME: 16:35 Assessment/Plan VTE Prophylaxis VTE Prophylaxis Intervention: SCD's Lines/Catheters Urinary Cath still in place: No Assessment/Plan Chief Complaint/Hosp Course A- hepatic/inflammatory issues etiology pending, uterine mass Problems: Assessment/Plan A- clinically improved P- Given that hepatic / septic issue confirmed to be uncommon/rare and not primary or metastatic neoplasm and no uterine bleeding or pelvic pain at all; statistically it is more likely that her uterine mass is a benign old fibroid. Given her overall medical condition it is not necessarily in her interest that I do a myomectomy or hysterectomy during this hospitalization. Would prefer to see as outpatient and arrange PET/CT given her overall medical condition. If PET/CT is negative surgery not needed as PET/CT is reliable for sarcoma and uterine cancer. IF FOR ANY REASON the uterine mass is thought to have a relationship to her hepatic/infectious/immunologic issue I can laparoscope while hospitalized. Otherwise will see in office after discharged. Subjective 24 Hr Interval Summary Free Text/Dictation Overall improving and more alert/conversational with site interpreter and family Exam/Review of Systems Vital Signs Vitals Vital Signs Date Time Temp Pulse Resp B/P Pulse Ox O2 Delivery O2 Flow Rate FiO2 01/18/17 15:29 98.6 101 18 125/78 92 01/18/17 09:07 3.0 01/18/17 08:20 Nasal Cannula 01/16/17 11:15 30 Intake and Output 01/17/17 01/17/17 01/18/17 15:00 23:00 07:00 Intake Total 750 ml 2050 ml Output Total 1875 ml Balance 750 ml 175 ml Exam Resp- clear CVS- NSR Abd- soft reduced tenderness Ext- NT no edema Pelvic- deferred Results Result Diagram: 01/18/17 0550 01/18/17 0500 Results 24 hrs Laboratory Tests Test 01/18/17 05:00 01/18/17 05:50 Sodium Level 143 Potassium Level 3.4 L Chloride Level 98 Carbon Dioxide Level 33 H Anion Gap 15 Blood Urea Nitrogen 19 Creatinine 0.50 Glucose Level 80 # Calcium Level 9.4 Phosphorus Level 2.9 Magnesium Level 2.4 White Blood Count 16.3 H Red Blood Count 3.87 L Hemoglobin 11.9 L Hematocrit 37.6 Mean Corpuscular Volume 97.2 Mean Corpuscular Hemoglobin 30.7 Mean Corpuscular Hemoglobin Concent 31.6 L Red Cell Distribution Width 19.3 H Platelet Count 433 H Mean Platelet Volume 11.3 H Neutrophils % 85.1 H Lymphocytes % 5.6 L Monocytes % 7.7 Eosinophils % 0.6 Basophils % 0.1 Nucleated Red Blood Cells % 0.0 Neutrophils # 13.9 H Lymphocytes # 0.9 Monocytes # 1.3 H Eosinophils # 0.1 Basophils # 0.0 Nucleated Red Blood Cells # 0.0 Medications Medications Current Medications Ondansetron HCl (Zofran Inj) 4 mg Q6H PRN IV NAUSEA AND/OR VOMITING Last administered on 01/05/17 02:20; Admin Dose 4 MG; Start 12/20/16 at 07:30 Acetaminophen (Tylenol Tab) 650 mg Q6H PRN PO PAIN LEVEL 1-3 OR FEVER Last administered on 01/11/17 19:27; Admin Dose 650 MG; Start 12/20/16 at 07:30 Morphine Sulfate (morphine) 4 mg Q4H PRN IV SEVERE PAIN LEVEL 7-10 Last administered on 01/12/17 11:23; Admin Dose 4 MG; Start 12/20/16 at 07:30 Amlodipine Besylate (Norvasc) 5 mg DAILY PO Last administered on 01/18/17 09:05 ; Admin Dose 5 MG; Start 12/21/16 at 09:00 Acetaminophen/ Hydrocodone Bitart ([place] (5/325)) 1 tab Q6H PRN PO PAIN LEVEL 7 -10 Last administered on 01/03/17 21:54; Admin Dose 1 TAB; Start 12/30/16 at 18 :00 Hydromorphone HCl (Dilaudid) 1 mg Q4H PRN IV SEVERE PAIN LEVEL 7-10 Last administered on 01/05/17 02:21; Admin Dose 1 MG; Start 01/02/17 at 17:45 Senna (Senokot) 1 tab BID PO Last administered on 01/18/17 09:05; Admin Dose 1 TAB; Start 01/03/17 at 21:00 Lorazepam (Ativan) 1 mg Q1H PRN IV Seizures Last administered on 01/12/17 14:31 ; Admin Dose 1 MG; Start 01/04/17 at 19:30 IV Flush (NS 10 ml) 10 ml PRN PRN IV FLUSH LINE; Start 01/04/17 at 20:00 Morphine Sulfate (morphine) 2 mg Q4H PRN IV pain Last administered on 01/16/17 23:34; Admin Dose 2 MG; Start 01/05/17 at 01:30 Pantoprazole (Protonix Iv) 40 mg DAILY@06 IV Last administered on 01/18/17 05: 51; Admin Dose 40 MG; Start 01/05/17 at 06:30 Lorazepam (Ativan) 1 mg Q4H PRN IV agitation Last administered on 01/12/17 21: 54; Admin Dose 1 MG; Start 01/05/17 at 07:00 Hydralazine HCl 10 mg 10 mg Q2H PRN IV SBP >170 Last administered on 01/12/17 22:01; Admin Dose 10 MG; Start 01/06/17 at 03:00 Potassium Chloride/Dextrose (KCl/D5W) 1,015 ml @ 50 mls/hr [id number] IV Last administered on 01/17/17 06:52; Admin Dose 50 MLS/HR; Start 01/11/17 at 07:00 Methylprednisolone Sodium Succinate (Solu-Medrol) 40 mg DAILY IV Last administered on 01/18/17 09:06; Admin Dose 40 MG; Start 01/12/17 at 11:00 Miscellaneous Information 1 ea NOTE XX ; Start 01/15/17 at 10:30 Diphenhydramine HCl (Benadryl) 25 mg Q6H PRN IV SLEEP Last administered on 23:33; Admin Dose 25 MG; Start 01/15/17 at 13:30 Docusate Sodium (Colace) 100 mg BID PO Last administered on 01/18/17 09:05; Admin Dose 100 MG; Start 01/16/17 at 21:00 Furosemide (Lasix) 20 mg DAILY IV Last administered on 01/18/17 09:06; Admin Dose 20 MG; Start 01/18/17 at 09:00 KAYLA NAPOLES MD Jan 18, 2017 16:45
--- NOTE | 2017-01-18 17:54 | CONS ---
Date/Time of Note Date/Time of Note DATE: 01/18/17 TIME: 17:53 Consult Date/Type/Reason Admit Date/Time Dec 19, 2016 at 21:34 Initial Consult Date 12/20/16 Type of Consultation: Pulm Ordering Provider: KAHLIL MARTEL Subjective No events overnight. Objective Vital Signs Date Time Temp Pulse Resp B/P Pulse Ox O2 Delivery O2 Flow Rate FiO2 01/18/17 16:49 97 01/18/17 15:29 98.6 18 125/78 92 01/18/17 09:07 3.0 01/18/17 08:20 Nasal Cannula 01/16/17 11:15 30 Intake and Output 01/17/17 01/17/17 01/18/17 15:00 23:00 07:00 Intake Total 750 ml 2050 ml Output Total 1875 ml Balance 750 ml 175 ml Exam HEENT: Neck supple; no JVD; no LAD CVS: RRR, S1 and S2 CHEST: Clear ABD: Soft, NT, + BS EXT: No c/c/e Results/Medications Result Diagram: 01/18/17 0550 01/18/17 0500 Results 24 hrs Laboratory Tests Test 01/18/17 05:00 01/18/17 05:50 Sodium Level 143 Potassium Level 3.4 L Chloride Level 98 Carbon Dioxide Level 33 H Anion Gap 15 Blood Urea Nitrogen 19 Creatinine 0.50 Glucose Level 80 # Calcium Level 9.4 Phosphorus Level 2.9 Magnesium Level 2.4 White Blood Count 16.3 H Red Blood Count 3.87 L Hemoglobin 11.9 L Hematocrit 37.6 Mean Corpuscular Volume 97.2 Mean Corpuscular Hemoglobin 30.7 Mean Corpuscular Hemoglobin Concent 31.6 L Red Cell Distribution Width 19.3 H Platelet Count 433 H Mean Platelet Volume 11.3 H Neutrophils % 85.1 H Lymphocytes % 5.6 L Monocytes % 7.7 Eosinophils % 0.6 Basophils % 0.1 Nucleated Red Blood Cells % 0.0 Neutrophils # 13.9 H Lymphocytes # 0.9 Monocytes # 1.3 H Eosinophils # 0.1 Basophils # 0.0 Nucleated Red Blood Cells # 0.0 Medications Current Medications Ondansetron HCl (Zofran Inj) 4 mg Q6H PRN IV NAUSEA AND/OR VOMITING Last administered on 01/05/17t 02:20; Admin Dose 4 MG; Start 12/20/16 at 07:30 Acetaminophen (Tylenol Tab) 650 mg Q6H PRN PO PAIN LEVEL 1-3 OR FEVER Last administered on 01/11/17 19:27; Admin Dose 650 MG; Start 12/20/16 at 07:30 Morphine Sulfate (morphine) 4 mg Q4H PRN IV SEVERE PAIN LEVEL 7-10 Last administered on 01/12/17 11:23; Admin Dose 4 MG; Start 12/20/16 at 07:30 Amlodipine Besylate (Norvasc) 5 mg DAILY PO Last administered on 01/18/17 09:05 ; Admin Dose 5 MG; Start 12/21/16 at 09:00 Acetaminophen/ Hydrocodone Bitart ([place] (5/325)) 1 tab Q6H PRN PO PAIN LEVEL 7 -10 Last administered on 01/03/17 21:54; Admin Dose 1 TAB; Start 12/30/16 at 18 :00 Hydromorphone HCl (Dilaudid) 1 mg Q4H PRN IV SEVERE PAIN LEVEL 7-10 Last administered on 01/05/17 02:21; Admin Dose 1 MG; Start 01/02/17 at 17:45 Senna (Senokot) 1 tab BID PO Last administered on 01/18/17 09:05; Admin Dose 1 TAB; Start 01/03/17 at 21:00 Lorazepam (Ativan) 1 mg Q1H PRN IV Seizures Last administered on 01/12/17 14:31 ; Admin Dose 1 MG; Start 01/04/17 at 19:30 IV Flush (NS 10 ml) 10 ml PRN PRN IV FLUSH LINE; Start 01/04/17 at 20:00 Morphine Sulfate (morphine) 2 mg Q4H PRN IV pain Last administered on 01/16/17 23:34; Admin Dose 2 MG; Start 01/05/17 at 01:30 Pantoprazole (Protonix Iv) 40 mg DAILY@06 IV Last administered on 01/18/17 05: 51; Admin Dose 40 MG; Start 01/05/17 at 06:30 Lorazepam (Ativan) 1 mg Q4H PRN IV agitation Last administered on 01/12/17 21: 54; Admin Dose 1 MG; Start 01/05/17 at 07:00 Hydralazine HCl 10 mg 10 mg Q2H PRN IV SBP >170 Last administered on 01/12/17 22:01; Admin Dose 10 MG; Start 01/06/17 at 03:00 Potassium Chloride/Dextrose (KCl/D5W) 1,015 ml @ 50 mls/hr [id number] IV Last administered on 01/17/17 06:52; Admin Dose 50 MLS/HR; Start 01/11/17 at 07:00 Methylprednisolone Sodium Succinate (Solu-Medrol) 40 mg DAILY IV Last administered on 01/18/17 09:06; Admin Dose 40 MG; Start 01/12/17 at 11:00 Miscellaneous Information 1 ea NOTE XX ; Start 01/15/17 at 10:30 Diphenhydramine HCl (Benadryl) 25 mg Q6H PRN IV SLEEP Last administered on 23:33; Admin Dose 25 MG; Start 01/15/17 at 13:30 Docusate Sodium (Colace) 100 mg BID PO Last administered on 01/18/17 09:05; Admin Dose 100 MG; Start 01/16/17 at 21:00 Furosemide (Lasix) 20 mg DAILY IV Last administered on 01/18/17 09:06; Admin Dose 20 MG; Start 01/18/17 at 09:00 Assessment/Plan Additional Assessment/Plan IMP: 1. Status post septic Shock 2. Respiratory Failure secondary to hypoventilation from abdominal distention. Low lung volumes resulting in hypercapnia and hypoxemic respiratory failure 3. Encephalopathy, toxic metabolic improving 4. s/p GRICELDA 5. 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 Steroid exacerbated hyperglycemia RECS: 1. May soon taper CS to prednisone 40 mg daily for treatment of IgG4-related disease. 5. Encourage out of bed. ANKUSH GARRIDO MD Jan 18, 2017 17:54
[2017-01-18] MEDS: POTASSIUM CHLORIDE 30 MEQ in DEXTROSE 5% 1,000 ML IV SCH (21:18)
[2017-01-18] MEDS: morphine 2 MG INJ IV PRN (21:18)
[2017-01-19] VITALS (12 sets, daily range): BP systolic 105–143; BP diastolic 60–78; PULSE 74–114; RESP 18–20
[2017-01-19] MEDS: PANTOPRAZOLE 40 MG INJ IV SCH (06:12)
[2017-01-19 06:23] LABS: ADD SCAN DIFF NO
[2017-01-19 06:29] LABS: BASOPHILS % 0.1 % (0.0-2.0); EOSINOPHILS # 0.1 10^3/ul (0.0-0.5); LYMPHOCYTES # 0.8 10^3/ul (0.8-2.9); LYMPHOCYTES % 5.9 % (15.0-51.0); MEAN CORPUSCULAR HEMOGLOBIN 30.9 pg (29.0-33.0); MEAN CORPUSCULAR HGB CONC 31.4 g/dl (32.0-37.0); MEAN CORPUSCULAR VOLUME 98.3 fl (82.0-101.0); MEAN PLATELET VOLUME 11.3 fl (7.4-10.4); MONOCYTE # 1.2 10^3/ul (0.3-0.9); MONOCYTES % 9.1 % (0.0-11.0); NEUTROPHIL # 11.3 10^3/ul (1.6-7.5); NEUTROPHILS % 83.3 % (39.0-77.0); PLATELET COUNT 391 10^3/UL (140-415); RED BLOOD COUNT 3.56 10^6/ul (4.20-5.40); RED CELL DISTRIBUTION WIDTH 19.2 % (11.5-14.5); WHITE BLOOD COUNT 13.5 10^3/ul (4.8-10.8)
[2017-01-19 06:53] LABS: BILIRUBIN,DIRECT 0.4 mg/dl (0.00-0.20); BILIRUBIN,INDIRECT 1.7 mg/dl (0-1.1); BILIRUBIN,TOTAL 2.1 mg/dl (0.2-1.3)
[2017-01-19 06:58] LABS: CALCIUM 9.1 mg/dl (8.4-10.2); CREATININE 0.48 mg/dl (0.44-1.00); MAGNESIUM 1.9 mg/dl (1.7-2.5); POTASSIUM 3.8 mmol/L (3.5-5.1)
[2017-01-19] MEDS: predniSONE 20 MG TAB PO SCH (08:57)
[2017-01-19] MEDS: AMLODIPINE 5 MG TAB PO SCH (08:58)
[2017-01-19] MEDS: FUROSEMIDE 20 MG INJ IV SCH (08:58)
[2017-01-19] MEDS: DOCUSATE SODIUM 100 MG CAP PO SCH ×2 (08:58→20:39)
[2017-01-19] MEDS: SENNA TAB PO SCH ×2 (08:58→20:39)
--- NOTE | 2017-01-19 10:36 | PN ---
Date/Time of Note Date/Time of Note DATE: 01/19/17 TIME: 10:33 Assessment/Plan VTE Prophylaxis VTE Prophylaxis Intervention: ambulation Lines/Catheters IV Catheter Type (from Nrs): PICC Line Central line still needed: Yes Urinary Cath still in place: No Assessment/Plan Assessment/Plan Bilirubin down to 2.7. Plan for outpatient f/u of the probable uterine fibroid noted. No new suggestions today. Subjective 24 Hr Interval Summary Free Text/Dictation Pt is slightly less jaundiced. No new problems. Exam/Review of Systems Vital Signs Vitals Vital Signs Date Time Temp Pulse Resp B/P Pulse Ox O2 Delivery O2 Flow Rate FiO2 01/19/17 08:27 79 01/19/17 07:38 Nasal Cannula 2.0 01/19/17 07:18 98.7 18 134/78 99 01/16/17 11:15 30 Intake and Output 01/18/17 01/18/17 01/19/17 15:00 23:00 07:00 Intake Total 600 ml 600 ml 1450 ml Output Total 1200 ml Balance -600 ml 600 ml 1450 ml Exam Constitutional: alert, oriented Eyes: other (mild jaundice) Respiratory: clear to auscultation Cardiovascular: regular rate and rhythm Gastrointestinal: non-tender, soft Results Result Diagram: 01/19/17 0541 01/19/17 0548 Results 24 hrs Laboratory Tests Test 01/19/17 05:41 01/19/17 05:48 White Blood Count 13.5 H Red Blood Count 3.56 L Hemoglobin 11.0 L Hematocrit 35.0 L Mean Corpuscular Volume 98.3 Mean Corpuscular Hemoglobin 30.9 Mean Corpuscular Hemoglobin Concent 31.4 L Red Cell Distribution Width 19.2 H Platelet Count 391 Mean Platelet Volume 11.3 H Neutrophils % 83.3 H Lymphocytes % 5.9 L Monocytes % 9.1 Eosinophils % 1.0 Basophils % 0.1 Nucleated Red Blood Cells % 0.0 Neutrophils # 11.3 H Lymphocytes # 0.8 Monocytes # 1.2 H Eosinophils # 0.1 Basophils # 0.0 Nucleated Red Blood Cells # 0.0 Sodium Level 141 Potassium Level 3.8 Chloride Level 98 Carbon Dioxide Level 33 H Anion Gap 14 Blood Urea Nitrogen 17 Creatinine 0.48 Glucose Level 80 Calcium Level 9.1 Phosphorus Level 3.0 Magnesium Level 1.9 Total Bilirubin 2.1 H Direct Bilirubin 0.40 #H Indirect Bilirubin 1.7 H Medications Medications Current Medications Ondansetron HCl (Zofran Inj) 4 mg Q6H PRN IV NAUSEA AND/OR VOMITING Last administered on 01/05/17 02:20; Admin Dose 4 MG; Start 12/20/16 at 07:30 Acetaminophen (Tylenol Tab) 650 mg Q6H PRN PO PAIN LEVEL 1-3 OR FEVER Last administered on 01/11/17 19:27; Admin Dose 650 MG; Start 12/20/16 at 07:30 Morphine Sulfate (morphine) 4 mg Q4H PRN IV SEVERE PAIN LEVEL 7-10 Last administered on 01/12/17 11:23; Admin Dose 4 MG; Start 12/20/16 at 07:30 Amlodipine Besylate (Norvasc) 5 mg DAILY PO Last administered on 01/19/17 08:58 ; Admin Dose 5 MG; Start 12/21/16 at 09:00 Acetaminophen/ Hydrocodone Bitart ([place] (5/325)) 1 tab Q6H PRN PO PAIN LEVEL 7 -10 Last administered on 01/03/17 21:54; Admin Dose 1 TAB; Start 12/30/16 at 18 :00 Hydromorphone HCl (Dilaudid) 1 mg Q4H PRN IV SEVERE PAIN LEVEL 7-10 Last administered on 01/05/17 02:21; Admin Dose 1 MG; Start 01/02/17 at 17:45 Senna (Senokot) 1 tab BID PO Last administered on 01/18/17 21:18; Admin Dose 1 TAB; Start 01/03/17 at 21:00 Lorazepam (Ativan) 1 mg Q1H PRN IV Seizures Last administered on 01/12/17 14:31 ; Admin Dose 1 MG; Start 01/04/17 at 19:30 IV Flush (NS 10 ml) 10 ml PRN PRN IV FLUSH LINE; Start 01/04/17 at 20:00 Morphine Sulfate (morphine) 2 mg Q4H PRN IV pain Last administered on 01/18/17 21:18; Admin Dose 2 MG; Start 01/05/17 at 01:30 Pantoprazole (Protonix Iv) 40 mg DAILY@06 IV Last administered on 01/19/17 06: 12; Admin Dose 40 MG; Start 01/05/17 at 06:30 Lorazepam (Ativan) 1 mg Q4H PRN IV agitation Last administered on 01/12/17 21: 54; Admin Dose 1 MG; Start 01/05/17 at 07:00 Hydralazine HCl 10 mg 10 mg Q2H PRN IV SBP >170 Last administered on 01/12/17 22:01; Admin Dose 10 MG; Start 01/06/17 at 03:00 Potassium Chloride/Dextrose (KCl/D5W) 1,015 ml @ 50 mls/hr [id number] IV Last administered on 01/18/17 21:18; Admin Dose 50 MLS/HR; Start 01/11/17 at 07:00 Miscellaneous Information 1 ea NOTE XX ; Start 01/15/17 at 10:30 Diphenhydramine HCl (Benadryl) 25 mg Q6H PRN IV SLEEP Last administered on 23:33; Admin Dose 25 MG; Start 01/15/17 at 13:30 Docusate Sodium (Colace) 100 mg BID PO Last administered on 01/18/17 21:18; Admin Dose 100 MG; Start 01/16/17 at 21:00 Furosemide (Lasix) 20 mg DAILY IV Last administered on 01/19/17 08:58; Admin Dose 20 MG; Start 01/18/17 at 09:00 Prednisone (Prednisone) 40 mg DAILY PO Last administered on 01/19/17 08:57; Admin Dose 40 MG; Start 01/19/17 at 09:00 BENJY TONG MD Jan 19, 2017 10:36
--- NOTE | 2017-01-19 11:19 | CONS ---
Date/Time of Note Date/Time of Note DATE: 01/19/17 TIME: 11:17 Consult Date/Type/Reason Admit Date/Time Dec 19, 2016 at 21:34 Initial Consult Date 12/26/16 Type of Consultation: neph Ordering Provider: KAHLIL MARTEL Patient transferred from ICU to telemetry. continues good uo. continues on d5 and lasix. poc reviewed with . Exam HEENT: Head is normocephalic. Pupils are reactive to light. NECK: Supple. HEART: Regular rate. LUNGS: Show diminished breath sounds at base. ABDOMEN: Soft, nontender to palpation. No rebound or guarding. EXTREMITIES: Negative for clubbing, cyanosis, no edema. DERMATOLOGIC: No rashes. MUSCULOSKELETAL: No joint effusions. NEUROLOGIC: No change in exam. Objective Vital Signs Date Time Temp Pulse Resp B/P Pulse Ox O2 Delivery O2 Flow Rate FiO2 01/19/17 11:12 98.7 101 18 105/60 95 01/19/17 07:38 Nasal Cannula 2.0 01/16/17 11:15 30 Intake and Output 01/18/17 01/18/17 01/19/17 15:00 23:00 07:00 Intake Total 600 ml 600 ml 1450 ml Output Total 1200 ml Balance -600 ml 600 ml 1450 ml Results/Medications Result Diagram: 01/19/17 0541 01/19/17 0548 Results 24 hrs Laboratory Tests Test 01/19/17 05:41 01/19/17 05:48 White Blood Count 13.5 H Red Blood Count 3.56 L Hemoglobin 11.0 L Hematocrit 35.0 L Mean Corpuscular Volume 98.3 Mean Corpuscular Hemoglobin 30.9 Mean Corpuscular Hemoglobin Concent 31.4 L Red Cell Distribution Width 19.2 H Platelet Count 391 Mean Platelet Volume 11.3 H Neutrophils % 83.3 H Lymphocytes % 5.9 L Monocytes % 9.1 Eosinophils % 1.0 Basophils % 0.1 Nucleated Red Blood Cells % 0.0 Neutrophils # 11.3 H Lymphocytes # 0.8 Monocytes # 1.2 H Eosinophils # 0.1 Basophils # 0.0 Nucleated Red Blood Cells # 0.0 Sodium Level 141 Potassium Level 3.8 Chloride Level 98 Carbon Dioxide Level 33 H Anion Gap 14 Blood Urea Nitrogen 17 Creatinine 0.48 Glucose Level 80 Calcium Level 9.1 Phosphorus Level 3.0 Magnesium Level 1.9 Total Bilirubin 2.1 H Direct Bilirubin 0.40 #H Indirect Bilirubin 1.7 H Medications Current Medications Ondansetron HCl (Zofran Inj) 4 mg Q6H PRN IV NAUSEA AND/OR VOMITING Last administered on 01/05/17 02:20; Admin Dose 4 MG; Start 12/20/16 at 07:30 Acetaminophen (Tylenol Tab) 650 mg Q6H PRN PO PAIN LEVEL 1-3 OR FEVER Last administered on 01/11/17 19:27; Admin Dose 650 MG; Start 12/20/16 at 07:30 Morphine Sulfate (morphine) 4 mg Q4H PRN IV SEVERE PAIN LEVEL 7-10 Last administered on 01/12/17 11:23; Admin Dose 4 MG; Start 12/20/16 at 07:30 Amlodipine Besylate (Norvasc) 5 mg DAILY PO Last administered on 01/19/17 08:58 ; Admin Dose 5 MG; Start 12/21/16 at 09:00 Acetaminophen/ Hydrocodone Bitart ([place] (5/325)) 1 tab Q6H PRN PO PAIN LEVEL 7 -10 Last administered on 01/03/17 21:54; Admin Dose 1 TAB; Start 12/30/16 at 18 :00 Hydromorphone HCl (Dilaudid) 1 mg Q4H PRN IV SEVERE PAIN LEVEL 7-10 Last administered on 01/05/17 02:21; Admin Dose 1 MG; Start 01/02/17 at 17:45 Senna (Senokot) 1 tab BID PO Last administered on 01/18/17 21:18; Admin Dose 1 TAB; Start 01/03/17 at 21:00 Lorazepam (Ativan) 1 mg Q1H PRN IV Seizures Last administered on 01/12/17 14:31 ; Admin Dose 1 MG; Start 01/04/17 at 19:30 IV Flush (NS 10 ml) 10 ml PRN PRN IV FLUSH LINE; Start 01/04/17 at 20:00 Morphine Sulfate (morphine) 2 mg Q4H PRN IV pain Last administered on 01/18/17 21:18; Admin Dose 2 MG; Start 01/05/17 at 01:30 Pantoprazole (Protonix Iv) 40 mg DAILY@06 IV Last administered on 01/19/17 06: 12; Admin Dose 40 MG; Start 01/05/17 at 06:30 Lorazepam (Ativan) 1 mg Q4H PRN IV agitation Last administered on 01/12/17 21: 54; Admin Dose 1 MG; Start 01/05/17 at 07:00 Hydralazine HCl 10 mg 10 mg Q2H PRN IV SBP >170 Last administered on 01/12/17 22:01; Admin Dose 10 MG; Start 01/06/17 at 03:00 Potassium Chloride/Dextrose (KCl/D5W) 1,015 ml @ 50 mls/hr [id number] IV Last administered on 01/18/17 21:18; Admin Dose 50 MLS/HR; Start 01/11/17 at 07:00 Miscellaneous Information 1 ea NOTE XX ; Start 01/15/17 at 10:30 Diphenhydramine HCl (Benadryl) 25 mg Q6H PRN IV SLEEP Last administered on 23:33; Admin Dose 25 MG; Start 01/15/17 at 13:30 Docusate Sodium (Colace) 100 mg BID PO Last administered on 01/18/17 21:18; Admin Dose 100 MG; Start 01/16/17 at 21:00 Furosemide (Lasix) 20 mg DAILY IV Last administered on 01/19/17 08:58; Admin Dose 20 MG; Start 01/18/17 at 09:00 Prednisone (Prednisone) 40 mg DAILY PO Last administered on 01/19/17 08:57; Admin Dose 40 MG; Start 01/19/17 at 09:00 Assessment/Plan Chief Complaint/Hosp Course 1. Nonoliguric acute kidney injury with previously normal baseline creatinine. Etiology secondary to acute tubular necrosis due to severe anemia, ischemic hypoperfusion, shock. - Patient's renal function has stabilized, - continue current treatment plan, supportive care, renally dose all medications. 2. s/p intra-abdominal bleed. -Hemoglobin levels have been stable. Continue to monitor 3. Volume overload. Improving continue with diuretic therapy 4. Hypernatremia -Improved Continue- D5W -Monitor serial sodium levels 3. Mineral bone disease. Will continue to monitor calcium, phosphorus levels. Replace phosphorus 4. hypokalemia/hypomagnesemia. Monitor and replace as needed 5. Sepsis. status post shock, currently off pressor support. Continue current antibiotic regimen. 6. Hypoxemic respiratory failure. Patient BIPAP. Continue to monitor. Follow -up with pulmonary. CT angiogram showed no evidence of PE 7. Portal vein thrombosis. 8. Multiple liver lesions status post biopsy. Findings consistent with possible lymphoplasmacytic involvement will continue to monitor. Follow up with hematology. 9. Uterine mass. Followup with Gynecology/Oncology. Status post code arrest. Problems: FERNANDO HAYWARD MD Jan 19, 2017 11:19
--- NOTE | 2017-01-19 13:29 | PN ---
Date/Time of Note Date/Time of Note DATE: 01/19/17 TIME: 13:24 Assessment/Plan VTE Prophylaxis VTE Prophylaxis Intervention: ambulation Lines/Catheters IV Catheter Type (from Nrs): PICC Line Central line still needed: Yes Urinary Cath still in place: No Assessment/Plan Assessment/Plan 1. Acute respiratory failure resolved managed by pulmonary 2. Anemia acute CT scan Intraabdominal hemorrhage Very large mixed density acute subcapsular hematoma of the liver with moderate blood seen throughout the abdomen and pelvis. Right lower lobe atelectasis or infiltrate and small bilateral effusions. Horseshoe kidneys 3. Transaminitis improving 4. 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 COMMENT: This case has been reviewed by Dr. Carlos Garcia of [facility] who essentially concurs with our interpretation and he states that the histopathological features are suggestive of but not characteristic for inflammatory (myofibroblastic) pseudotumor, and due to difficulty in assessing IgG4/IgG ratio due to diffuse background staining a diagnosis of sclerosing cholangitis, which can be seen in IgG4-associated liver disease cannot be made at this time. Please see attached consultation report. 5. Portal vein thrombosis Plan * continue present management * will continue to trend transaminases level * case discussed with Dr Raphael * Further orders will depend on clinical course Subjective 24 Hr Interval Summary Free Text/Dictation * course reviewed with RN * Patient seen and examined * improving transaminases * no untoward events overnight Exam/Review of Systems Vital Signs Vitals Vital Signs Date Time Temp Pulse Resp B/P Pulse Ox O2 Delivery O2 Flow Rate FiO2 01/19/17 13:00 98 01/19/17 11:12 98.7 18 105/60 95 01/19/17 07:38 Nasal Cannula 2.0 01/16/17 11:15 30 Intake and Output 01/18/17 01/18/17 01/19/17 15:00 23:00 07:00 Intake Total 600 ml 600 ml 1450 ml Output Total 1200 ml Balance -600 ml 600 ml 1450 ml Exam Constitutional: alert, oriented, well developed Head: normocephalic Neck: non-tender, supple Respiratory: clear to auscultation, normal air movement Cardiovascular: nl pulses, regular rate and rhythm Gastrointestinal: distended, non-tender, soft, No rebound or guarding Musculoskeletal: nl extremities to inspection, nl gait and stance Extremities: normal pulses Neurological: nl speech, nl strength Skin: nl turgor, No rash or lesions Lymph: nl lymph nodes Results Result Diagram: 01/19/17 0541 01/19/17 0548 Results 24 hrs Laboratory Tests Test 01/19/17 05:41 01/19/17 05:48 White Blood Count 13.5 H Red Blood Count 3.56 L Hemoglobin 11.0 L Hematocrit 35.0 L Mean Corpuscular Volume 98.3 Mean Corpuscular Hemoglobin 30.9 Mean Corpuscular Hemoglobin Concent 31.4 L Red Cell Distribution Width 19.2 H Platelet Count 391 Mean Platelet Volume 11.3 H Neutrophils % 83.3 H Lymphocytes % 5.9 L Monocytes % 9.1 Eosinophils % 1.0 Basophils % 0.1 Nucleated Red Blood Cells % 0.0 Neutrophils # 11.3 H Lymphocytes # 0.8 Monocytes # 1.2 H Eosinophils # 0.1 Basophils # 0.0 Nucleated Red Blood Cells # 0.0 Sodium Level 141 Potassium Level 3.8 Chloride Level 98 Carbon Dioxide Level 33 H Anion Gap 14 Blood Urea Nitrogen 17 Creatinine 0.48 Glucose Level 80 Calcium Level 9.1 Phosphorus Level 3.0 Magnesium Level 1.9 Total Bilirubin 2.1 H Direct Bilirubin 0.40 #H Indirect Bilirubin 1.7 H Medications Medications Current Medications Ondansetron HCl (Zofran Inj) 4 mg Q6H PRN IV NAUSEA AND/OR VOMITING Last administered on 01/05/17 02:20; Admin Dose 4 MG; Start 12/20/16 at 07:30 Acetaminophen (Tylenol Tab) 650 mg Q6H PRN PO PAIN LEVEL 1-3 OR FEVER Last administered on 01/11/17 19:27; Admin Dose 650 MG; Start 12/20/16 at 07:30 Morphine Sulfate (morphine) 4 mg Q4H PRN IV SEVERE PAIN LEVEL 7-10 Last administered on 01/12/17 11:23; Admin Dose 4 MG; Start 12/20/16 at 07:30 Amlodipine Besylate (Norvasc) 5 mg DAILY PO Last administered on 01/19/17 08:58 ; Admin Dose 5 MG; Start 12/21/16 at 09:00 Acetaminophen/ Hydrocodone Bitart ([place] (5/325)) 1 tab Q6H PRN PO PAIN LEVEL 7 -10 Last administered on 01/03/17 21:54; Admin Dose 1 TAB; Start 12/30/16 at 18 :00 Hydromorphone HCl (Dilaudid) 1 mg Q4H PRN IV SEVERE PAIN LEVEL 7-10 Last administered on 01/05/17 02:21; Admin Dose 1 MG; Start 01/02/17 at 17:45 Senna (Senokot) 1 tab BID PO Last administered on 01/18/17 21:18; Admin Dose 1 TAB; Start 01/03/17 at 21:00 Lorazepam (Ativan) 1 mg Q1H PRN IV Seizures Last administered on 01/12/17 14:31 ; Admin Dose 1 MG; Start 01/04/17 at 19:30 IV Flush (NS 10 ml) 10 ml PRN PRN IV FLUSH LINE; Start 01/04/17 at 20:00 Morphine Sulfate (morphine) 2 mg Q4H PRN IV pain Last administered on 01/18/17 21:18; Admin Dose 2 MG; Start 01/05/17 at 01:30 Pantoprazole (Protonix Iv) 40 mg DAILY@06 IV Last administered on 01/19/17 06: 12; Admin Dose 40 MG; Start 01/05/17 at 06:30 Lorazepam (Ativan) 1 mg Q4H PRN IV agitation Last administered on 01/12/17 21: 54; Admin Dose 1 MG; Start 01/05/17 at 07:00 Hydralazine HCl 10 mg 10 mg Q2H PRN IV SBP >170 Last administered on 01/12/17 22:01; Admin Dose 10 MG; Start 01/06/17 at 03:00 Potassium Chloride/Dextrose (KCl/D5W) 1,015 ml @ 50 mls/hr [id number] IV Last administered on 01/18/17 21:18; Admin Dose 50 MLS/HR; Start 01/11/17 at 07:00 Miscellaneous Information 1 ea NOTE XX ; Start 01/15/17 at 10:30 Diphenhydramine HCl (Benadryl) 25 mg Q6H PRN IV SLEEP Last administered on 23:33; Admin Dose 25 MG; Start 7/5/17 at 13:30 Docusate Sodium (Colace) 100 mg BID PO Last administered on 01/18/17 21:18; Admin Dose 100 MG; Start 01/16/17 at 21:00 Furosemide (Lasix) 20 mg DAILY IV Last administered on 01/19/17 08:58; Admin Dose 20 MG; Start 01/18/17 at 09:00 Prednisone (Prednisone) 40 mg DAILY PO Last administered on 01/19/17 08:57; Admin Dose 40 MG; Start 01/19/17 at 09:00 NARENDRA FINLEY NP Jan 19, 2017 13:28
--- NOTE | 2017-01-19 16:06 | CONS ---
Date/Time of Note Date/Time of Note DATE: 01/19/17 TIME: 16:04 Consult Date/Type/Reason Admit Date/Time Dec 19, 2016 at 21:34 Initial Consult Date 12/20/16 Type of Consultation: Pulm Ordering Provider: KAHLIL MARTEL Subjective doing better. no SOB. Objective Vital Signs Date Time Temp Pulse Resp B/P Pulse Ox O2 Delivery O2 Flow Rate FiO2 01/19/17 15:15 98.6 62 18 128/74 96 01/19/17 07:38 Nasal Cannula 2.0 01/16/17 11:15 30 Intake and Output 01/18/17 01/18/17 01/19/17 15:00 23:00 07:00 Intake Total 600 ml 600 ml 1450 ml Output Total 1200 ml Balance -600 ml 600 ml 1450 ml Exam HEENT: Neck supple; no JVD; no LAD CVS: RRR, S1 and S2 CHEST: Clear ABD: Soft, NT, + BS EXT: No c/c/e Results/Medications Result Diagram: 01/19/17 0541 01/19/17 0548 Results 24 hrs Laboratory Tests Test 01/19/17 05:41 01/19/17 05:48 White Blood Count 13.5 H Red Blood Count 3.56 L Hemoglobin 11.0 L Hematocrit 35.0 L Mean Corpuscular Volume 98.3 Mean Corpuscular Hemoglobin 30.9 Mean Corpuscular Hemoglobin Concent 31.4 L Red Cell Distribution Width 19.2 H Platelet Count 391 Mean Platelet Volume 11.3 H Neutrophils % 83.3 H Lymphocytes % 5.9 L Monocytes % 9.1 Eosinophils % 1.0 Basophils % 0.1 Nucleated Red Blood Cells % 0.0 Neutrophils # 11.3 H Lymphocytes # 0.8 Monocytes # 1.2 H Eosinophils # 0.1 Basophils # 0.0 Nucleated Red Blood Cells # 0.0 Sodium Level 141 Potassium Level 3.8 Chloride Level 98 Carbon Dioxide Level 33 H Anion Gap 14 Blood Urea Nitrogen 17 Creatinine 0.48 Glucose Level 80 Calcium Level 9.1 Phosphorus Level 3.0 Magnesium Level 1.9 Total Bilirubin 2.1 H Direct Bilirubin 0.40 #H Indirect Bilirubin 1.7 H Medications Current Medications Ondansetron HCl (Zofran Inj) 4 mg Q6H PRN IV NAUSEA AND/OR VOMITING Last administered on 6/25/17at 02:20; Admin Dose 4 MG; Start 12/20/16 at 07:30 Acetaminophen (Tylenol Tab) 650 mg Q6H PRN PO PAIN LEVEL 1-3 OR FEVER Last administered on 01/11/17 19:27; Admin Dose 650 MG; Start 12/20/16 at 07:30 Morphine Sulfate (morphine) 4 mg Q4H PRN IV SEVERE PAIN LEVEL 7-10 Last administered on 01/12/17 11:23; Admin Dose 4 MG; Start 12/20/16 at 07:30 Amlodipine Besylate (Norvasc) 5 mg DAILY PO Last administered on 01/19/17 08:58 ; Admin Dose 5 MG; Start 12/21/16 at 09:00 Acetaminophen/ Hydrocodone Bitart ([place] (5/325)) 1 tab Q6H PRN PO PAIN LEVEL 7 -10 Last administered on 01/03/17 21:54; Admin Dose 1 TAB; Start 12/30/16 at 18 :00 Hydromorphone HCl (Dilaudid) 1 mg Q4H PRN IV SEVERE PAIN LEVEL 7-10 Last administered on 01/05/17 02:21; Admin Dose 1 MG; Start 01/02/17 at 17:45 Senna (Senokot) 1 tab BID PO Last administered on 01/18/17 21:18; Admin Dose 1 TAB; Start 01/03/17 at 21:00 Lorazepam (Ativan) 1 mg Q1H PRN IV Seizures Last administered on 01/12/17 14:31 ; Admin Dose 1 MG; Start 01/04/17 at 19:30 IV Flush (NS 10 ml) 10 ml PRN PRN IV FLUSH LINE; Start 01/04/17 at 20:00 Morphine Sulfate (morphine) 2 mg Q4H PRN IV pain Last administered on 01/18/17 21:18; Admin Dose 2 MG; Start 01/05/17 at 01:30 Pantoprazole (Protonix Iv) 40 mg DAILY@06 IV Last administered on 01/19/17 06: 12; Admin Dose 40 MG; Start 01/05/17 at 06:30 Lorazepam (Ativan) 1 mg Q4H PRN IV agitation Last administered on 01/12/17 21: 54; Admin Dose 1 MG; Start 01/05/17 at 07:00 Hydralazine HCl 10 mg 10 mg Q2H PRN IV SBP >170 Last administered on 01/12/17 22:01; Admin Dose 10 MG; Start 01/06/17 at 03:00 Potassium Chloride/Dextrose (KCl/D5W) 1,015 ml @ 50 mls/hr [id number] IV Last administered on 01/18/17 21:18; Admin Dose 50 MLS/HR; Start 01/11/17 at 07:00 Miscellaneous Information 1 ea NOTE XX ; Start 01/15/17 at 10:30 Diphenhydramine HCl (Benadryl) 25 mg Q6H PRN IV SLEEP Last administered on 23:33; Admin Dose 25 MG; Start 01/15/17 at 13:30 Docusate Sodium (Colace) 100 mg BID PO Last administered on 01/18/17 21:18; Admin Dose 100 MG; Start 01/16/17 at 21:00 Furosemide (Lasix) 20 mg DAILY IV Last administered on 01/19/17 08:58; Admin Dose 20 MG; Start 01/18/17 at 09:00 Prednisone (Prednisone) 40 mg DAILY PO Last administered on 01/19/17 08:57; Admin Dose 40 MG; Start 01/19/17 at 09:00 Assessment/Plan Additional Assessment/Plan IMP: 1. Status post septic Shock 2. Respiratory Failure secondary to hypoventilation from abdominal distention. Low lung volumes resulting in hypercapnia and hypoxemic respiratory failure 3. Encephalopathy, toxic metabolic improving 4. s/p GRICELDA 5. 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 Steroid exacerbated hyperglycemia RECS: 1. Continue prednisone 40 mg daily; would taper slowly over a course of months. 5. Consider bactrim for PJP prophylaxis given [facility] CS use. ANKUSH GARRIDO MD Jan 19, 2017 16:05
--- NOTE | 2017-01-19 16:12 | CONS ---
Date/Time of Note Date/Time of Note DATE: 01/19/17 TIME: 16:11 Assessment/Plan Assessment/Plan Chief Complaint/Hosp Course No acute events overnight, patient is alert, denies pain discomfort, family at bedside Indwelling's: PICC line Physical examination: Morbidly obese, well-developed middle-aged woman who is alert in no distress. Head atraumatic normocephalic, sclera nonicteric. Neck is obese, trachea midline. Chest rise symmetrical breath sounds diminished basis. Heart S1-S2. Abdomen soft distended bowel tones hypoactive. Extremities with trace edema Assessment: 1. Status post acute respiratory failure 2. Status post healthcare associated pneumonia 3. Status post hepatic hemorrhage secondary to liver biopsy 4. 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 Hepatic and portal vein thrombosis 6. Status post streptococcal bacteremia on admission with repeat blood cultures being negative 7. Uterine lesion, possibly malignant Plan: Remains stable, off antibiotics, continue present care, follow recommendations of consultants, repeat cultures as needed Discussed with staff Discussed with family at bedside Problems: Consultation Date/Type/Reason Admit Date/Time Dec 19, 2016 at 21:34 Initial Consult Date 12/20/16 Type of Consultation: ID Referring Provider: KAHLIL MARTEL Exam/Review of Systems Vital Signs Vitals Vital Signs Date Time Temp Pulse Resp B/P Pulse Ox O2 Delivery O2 Flow Rate FiO2 01/19/17 15:15 98.6 62 18 128/74 96 01/19/17 07:38 Nasal Cannula 2.0 01/16/17 11:15 30 Intake and Output 01/18/17 01/18/17 01/19/17 15:00 23:00 07:00 Intake Total 600 ml 600 ml 1450 ml Output Total 1200 ml Balance -600 ml 600 ml 1450 ml Results Result Diagram: 01/19/17 0541 01/19/17 0548 Results 24 hrs Laboratory Tests Test 01/19/17 05:41 01/19/17 05:48 White Blood Count 13.5 H Red Blood Count 3.56 L Hemoglobin 11.0 L Hematocrit 35.0 L Mean Corpuscular Volume 98.3 Mean Corpuscular Hemoglobin 30.9 Mean Corpuscular Hemoglobin Concent 31.4 L Red Cell Distribution Width 19.2 H Platelet Count 391 Mean Platelet Volume 11.3 H Neutrophils % 83.3 H Lymphocytes % 5.9 L Monocytes % 9.1 Eosinophils % 1.0 Basophils % 0.1 Nucleated Red Blood Cells % 0.0 Neutrophils # 11.3 H Lymphocytes # 0.8 Monocytes # 1.2 H Eosinophils # 0.1 Basophils # 0.0 Nucleated Red Blood Cells # 0.0 Sodium Level 141 Potassium Level 3.8 Chloride Level 98 Carbon Dioxide Level 33 H Anion Gap 14 Blood Urea Nitrogen 17 Creatinine 0.48 Glucose Level 80 Calcium Level 9.1 Phosphorus Level 3.0 Magnesium Level 1.9 Total Bilirubin 2.1 H Direct Bilirubin 0.40 #H Indirect Bilirubin 1.7 H Medications Medications Current Medications Ondansetron HCl (Zofran Inj) 4 mg Q6H PRN IV NAUSEA AND/OR VOMITING Last administered on 01/05/17 02:20; Admin Dose 4 MG; Start 12/20/16 at 07:30 Acetaminophen (Tylenol Tab) 650 mg Q6H PRN PO PAIN LEVEL 1-3 OR FEVER Last administered on 01/11/17 19:27; Admin Dose 650 MG; Start 12/20/16 at 07:30 Morphine Sulfate (morphine) 4 mg Q4H PRN IV SEVERE PAIN LEVEL 7-10 Last administered on 01/12/17 11:23; Admin Dose 4 MG; Start 12/20/16 at 07:30 Amlodipine Besylate (Norvasc) 5 mg DAILY PO Last administered on 01/19/17 08:58 ; Admin Dose 5 MG; Start 12/21/16 at 09:00 Acetaminophen/ Hydrocodone Bitart ([place] (5/325)) 1 tab Q6H PRN PO PAIN LEVEL 7 -10 Last administered on 01/03/17 21:54; Admin Dose 1 TAB; Start 12/30/16 at 18 :00 Hydromorphone HCl (Dilaudid) 1 mg Q4H PRN IV SEVERE PAIN LEVEL 7-10 Last administered on 01/05/17 02:21; Admin Dose 1 MG; Start 01/02/17 at 17:45 Senna (Senokot) 1 tab BID PO Last administered on 01/18/17 21:18; Admin Dose 1 TAB; Start 01/03/17 at 21:00 Lorazepam (Ativan) 1 mg Q1H PRN IV Seizures Last administered on 01/12/17 14:31 ; Admin Dose 1 MG; Start 01/04/17 at 19:30 IV Flush (NS 10 ml) 10 ml PRN PRN IV FLUSH LINE; Start 01/04/17 at 20:00 Morphine Sulfate (morphine) 2 mg Q4H PRN IV pain Last administered on 01/18/17 21:18; Admin Dose 2 MG; Start 01/05/17 at 01:30 Pantoprazole (Protonix Iv) 40 mg DAILY@06 IV Last administered on 01/19/17 06: 12; Admin Dose 40 MG; Start 01/05/17 at 06:30 Lorazepam (Ativan) 1 mg Q4H PRN IV agitation Last administered on 01/12/17 21: 54; Admin Dose 1 MG; Start 01/05/17 at 07:00 Hydralazine HCl 10 mg 10 mg Q2H PRN IV SBP >170 Last administered on 01/12/17 22:01; Admin Dose 10 MG; Start 01/06/17 at 03:00 Potassium Chloride/Dextrose (KCl/D5W) 1,015 ml @ 50 mls/hr [id number] IV Last administered on 01/18/17 21:18; Admin Dose 50 MLS/HR; Start 01/11/17 at 07:00 Miscellaneous Information 1 ea NOTE XX ; Start 01/15/17 at 10:30 Diphenhydramine HCl (Benadryl) 25 mg Q6H PRN IV SLEEP Last administered on 23:33; Admin Dose 25 MG; Start 01/15/17 at 13:30 Docusate Sodium (Colace) 100 mg BID PO Last administered on 01/18/17 21:18; Admin Dose 100 MG; Start 01/16/17 at 21:00 Furosemide (Lasix) 20 mg DAILY IV Last administered on 01/19/17 08:58; Admin Dose 20 MG; Start 01/18/17 at 09:00 Prednisone (Prednisone) 40 mg DAILY PO Last administered on 01/19/17 08:57; Admin Dose 40 MG; Start 01/19/17 at 09:00 NANCY HULL NP Jan 19, 2017 16:11
--- NOTE | 2017-01-19 19:55 | PN ---
Date/Time of Note Date/Time of Note DATE: 01/19/17 TIME: 19:52 Assessment/Plan VTE Prophylaxis VTE Prophylaxis Intervention: SCD's Lines/Catheters Urinary Cath still in place: No Assessment/Plan Chief Complaint/Hosp Course 1. Severe systemic shock likely hypovolemic from acute intra-abdominal hemorrhage / subcapsular hepatic hematoma causing severe coagulopathy: resolved 2. Persistent resp failure 2/2 aspiration pneumonia: extubated now 3. Acute encephalopathy secondary to pneumonia-resolved 4. Recurrence of acute kidney injury secondary to #1: improving 5. 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 Hypertension: better control 7. Diffuse venous thrombosis to include hepatic, portal, and right upper extremity veins 8. Status post alpha hemolytic strep bacteremia 9. Solitary seizure episode likely secondary to #1 10. Acute transaminitis and coagulopathy secondary to subcapsular hematoma s/ p status post hepatic artery ligation versus embolization via IR : Improving 11. Maurice Pneumonia R >>L. * Had lung nodules on admission likely 2/2 pneumonia, no longer present on CT 12. Debility 13. Mild hepatic infarct on CT likely related to #10 14. Persistent hypokalemia and hypophosphatemia 15. Jaundice-bilirubin trending down Plan: * Resp status has stabilized * Patient remains on D5 water with potassium chloride, but is also on Lasix for diuresis * Recommendation per pulmonology is to continue p.o. steroids and taper down over the course of next several month * Continue to closely monitor liver function which is improving * Patient remains off anticoagulation d/t bleeding * Patient now off antibiotics * No further seizures * Regarding uterine lesion, per Dr. Jaimes of gynecology oncology no indication for biopsy or further intervention as patient is asymptomatic and masses are believed to be secondary to fibroids Prophylaxis: SCDs/IV PPI Discharge planning: Anticipate DC home in 1-2 days, patient encouraged to ambulate Problems: Subjective 24 Hr Interval Summary Constitutional: no complaints Exam/Review of Systems Vital Signs Vitals Vital Signs Date Time Temp Pulse Resp B/P Pulse Ox O2 Delivery O2 Flow Rate FiO2 01/19/17 19:41 Nasal Cannula 2.0 01/19/17 16:29 114 01/19/17 15:15 98.6 18 128/74 96 01/16/17 11:15 30 Intake and Output 01/18/17 01/18/17 01/19/17 15:00 23:00 07:00 Intake Total 600 ml 600 ml 1450 ml Output Total 1200 ml Balance -600 ml 600 ml 1450 ml Exam Constitutional: alert Respiratory: clear to auscultation Cardiovascular: regular rate and rhythm Gastrointestinal: soft, No distended Musculoskeletal: nl extremities to inspection Results Result Diagram: 01/19/17 0541 01/19/17 0548 Results 24 hrs Laboratory Tests Test 01/19/17 05:41 01/19/17 05:48 White Blood Count 13.5 H Red Blood Count 3.56 L Hemoglobin 11.0 L Hematocrit 35.0 L Mean Corpuscular Volume 98.3 Mean Corpuscular Hemoglobin 30.9 Mean Corpuscular Hemoglobin Concent 31.4 L Red Cell Distribution Width 19.2 H Platelet Count 391 Mean Platelet Volume 11.3 H Neutrophils % 83.3 H Lymphocytes % 5.9 L Monocytes % 9.1 Eosinophils % 1.0 Basophils % 0.1 Nucleated Red Blood Cells % 0.0 Neutrophils # 11.3 H Lymphocytes # 0.8 Monocytes # 1.2 H Eosinophils # 0.1 Basophils # 0.0 Nucleated Red Blood Cells # 0.0 Sodium Level 141 Potassium Level 3.8 Chloride Level 98 Carbon Dioxide Level 33 H Anion Gap 14 Blood Urea Nitrogen 17 Creatinine 0.48 Glucose Level 80 Calcium Level 9.1 Phosphorus Level 3.0 Magnesium Level 1.9 Total Bilirubin 2.1 H Direct Bilirubin 0.40 #H Indirect Bilirubin 1.7 H Medications Medications Current Medications Ondansetron HCl (Zofran Inj) 4 mg Q6H PRN IV NAUSEA AND/OR VOMITING Last administered on 01/05/17 02:20; Admin Dose 4 MG; Start 12/20/16 at 07:30 Acetaminophen (Tylenol Tab) 650 mg Q6H PRN PO PAIN LEVEL 1-3 OR FEVER Last administered on 01/11/17 19:27; Admin Dose 650 MG; Start 12/20/16 at 07:30 Morphine Sulfate (morphine) 4 mg Q4H PRN IV SEVERE PAIN LEVEL 7-10 Last administered on 01/12/17 11:23; Admin Dose 4 MG; Start 12/20/16 at 07:30 Amlodipine Besylate (Norvasc) 5 mg DAILY PO Last administered on 01/19/17 08:58 ; Admin Dose 5 MG; Start 12/21/16 at 09:00 Acetaminophen/ Hydrocodone Bitart ([place] (5/325)) 1 tab Q6H PRN PO PAIN LEVEL 7 -10 Last administered on 01/03/17 21:54; Admin Dose 1 TAB; Start 12/30/16 at 18 :00 Hydromorphone HCl (Dilaudid) 1 mg Q4H PRN IV SEVERE PAIN LEVEL 7-10 Last administered on 01/05/17 02:21; Admin Dose 1 MG; Start 01/02/17 at 17:45 Senna (Senokot) 1 tab BID PO Last administered on 01/18/17 21:18; Admin Dose 1 TAB; Start 01/03/17 at 21:00 Lorazepam (Ativan) 1 mg Q1H PRN IV Seizures Last administered on 01/12/17 14:31 ; Admin Dose 1 MG; Start 01/04/17 at 19:30 IV Flush (NS 10 ml) 10 ml PRN PRN IV FLUSH LINE; Start 01/04/17 at 20:00 Morphine Sulfate (morphine) 2 mg Q4H PRN IV pain Last administered on 01/18/17 21:18; Admin Dose 2 MG; Start 01/05/17 at 01:30 Pantoprazole (Protonix Iv) 40 mg DAILY@06 IV Last administered on 01/19/17 06: 12; Admin Dose 40 MG; Start 01/05/17 at 06:30 Lorazepam (Ativan) 1 mg Q4H PRN IV agitation Last administered on 01/12/17 21: 54; Admin Dose 1 MG; Start 01/05/17 at 07:00 Hydralazine HCl 10 mg 10 mg Q2H PRN IV SBP >170 Last administered on 01/12/17 22:01; Admin Dose 10 MG; Start 01/06/17 at 03:00 Potassium Chloride/Dextrose (KCl/D5W) 1,015 ml @ 50 mls/hr [id number] IV Last administered on 01/18/17 21:18; Admin Dose 50 MLS/HR; Start 01/11/17 at 07:00 Miscellaneous Information 1 ea NOTE XX ; Start 01/15/17 at 10:30 Diphenhydramine HCl (Benadryl) 25 mg Q6H PRN IV SLEEP Last administered on 23:33; Admin Dose 25 MG; Start 01/15/17 at 13:30 Docusate Sodium (Colace) 100 mg BID PO Last administered on 01/18/17 21:18; Admin Dose 100 MG; Start 01/16/17 at 21:00 Furosemide (Lasix) 20 mg DAILY IV Last administered on 01/19/17 08:58; Admin Dose 20 MG; Start 01/18/17 at 09:00 Prednisone (Prednisone) 40 mg DAILY PO Last administered on 01/19/17 08:57; Admin Dose 40 MG; Start 01/19/17 at 09:00 SHELLEY VALENCIA Jan 19, 2017 19:55
[2017-01-19] MEDS: POTASSIUM CHLORIDE 30 MEQ in DEXTROSE 5% 1,000 ML IV SCH (20:37)
[2017-01-19] MEDS: HYDROCODONE/APAP (5/325) TAB PO PRN (23:10)
[2017-01-20] VITALS (12 sets, daily range): BP systolic 107–150; BP diastolic 57–86; PULSE 76–125; RESP 18–20
[2017-01-20] MEDS: PANTOPRAZOLE 40 MG INJ IV SCH (06:16)
[2017-01-20 07:03] LABS: ADD SCAN DIFF NO
[2017-01-20] MEDS: DOCUSATE SODIUM 100 MG CAP PO SCH ×2 (07:04→21:09)
[2017-01-20] MEDS: SENNA TAB PO SCH ×2 (07:04→21:09)
[2017-01-20 07:09] LABS: EOSINOPHILS # 0.2 10^3/ul (0.0-0.5); EOSINOPHILS % 2.2 % (0.0-7.0); HEMATOCRIT 34.3 % (37.0-47.0); HEMOGLOBIN 10.8 g/dl (12.0-16.0); LYMPHOCYTES # 0.8 10^3/ul (0.8-2.9); LYMPHOCYTES % 7.9 % (15.0-51.0); MEAN CORPUSCULAR HEMOGLOBIN 31.2 pg (29.0-33.0); MEAN CORPUSCULAR HGB CONC 31.5 g/dl (32.0-37.0); MEAN CORPUSCULAR VOLUME 99.1 fl (82.0-101.0); MEAN PLATELET VOLUME 11.2 fl (7.4-10.4); MONOCYTES % 9.7 % (0.0-11.0); NEUTROPHIL # 7.9 10^3/ul (1.6-7.5); NEUTROPHILS % 79.2 % (39.0-77.0); PLATELET COUNT 324 10^3/UL (140-415); RED BLOOD COUNT 3.46 10^6/ul (4.20-5.40); RED CELL DISTRIBUTION WIDTH 19.1 % (11.5-14.5); WHITE BLOOD COUNT 9.9 10^3/ul (4.8-10.8)
[2017-01-20 07:45] LABS: ALBUMIN 3.6 g/dl (3.3-4.9); ALBUMIN/GLOBULIN RATIO 1.2; BILIRUBIN,DIRECT 0.3 mg/dl (0.00-0.20); BILIRUBIN,INDIRECT 1.5 mg/dl (0-1.1); BILIRUBIN,TOTAL 1.8 mg/dl (0.2-1.3); CREATININE 0.44 mg/dl (0.44-1.00); POTASSIUM 3.7 mmol/L (3.5-5.1); TOTAL PROTEIN 6.6 g/dl (6.1-8.1)
--- NOTE | 2017-01-20 08:35 | PN ---
Date/Time of Note Date/Time of Note DATE: 01/20/17 TIME: 08:25 Assessment/Plan VTE Prophylaxis VTE Prophylaxis Intervention: SCD's Lines/Catheters IV [facility] PICC Line Central line still needed: Yes Urinary Cath still in place: No Assessment/Plan Chief Complaint/Hosp Course Bx of hepatic lesions do not detect any malignancy. 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 Hepatic hemorrhage seems to have been controlled. No further bleeding. Coagulation parameters are nl. No evidence of DIC at this time or in past. Uterine lesion not likely to be related to the hepatic process, but further evaluation is needed. Cannot r/o the poss of a leiomyosarcoma. Problems: (1) Uterine mass Status: Acute (2) Jaundice Status: Acute (3) Transaminitis Status: Acute (4) Hepatic vein thrombosis Status: Acute (5) Portal vein thrombosis Status: Acute Assessment/Plan Liver functions improving. At present the hyperbilirubinemia is mostly indirect. Last LDH was >2,000. Haptoglobin and plasma Hgb are still pending. Concerned the there may be some component of hemolysis but H&H are stable. Will repeat LDH and check retic ct. Do not feel that uterine mass and hepatic process are related. 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 Subjective 24 Hr Interval Summary Free Text/Dictation Pt has no new complaints. No abd pain. No N/V. No shaking chills. Has been seen in consultation by Dr Napoles Exam/Review of Systems Vital Signs Vitals Vital Signs Date Time Temp Pulse Resp B/P Pulse Ox O2 Delivery O2 Flow Rate FiO2 01/20/17 07:51 98.4 81 20 133/64 98 01/20/17 07:31 Nasal Cannula 2.0 01/16/17 11:15 30 Intake and Output 01/19/17 01/19/17 01/20/17 15:00 23:00 07:00 Intake Total 860 ml 1000 ml Balance 860 ml 1000 ml Exam Constitutional: alert, oriented, well developed Head: atraumatic, normocephalic Eyes: EOMI, nl conjunctiva, nl lids ENMT: nl lips & teeth Neck: supple Respiratory: clear to auscultation, normal air movement Cardiovascular: nl pulses, regular rate and rhythm Gastrointestinal: nl liver, spleen, non-tender, soft Genitourinary - Female: nl external genitalia Musculoskeletal: nl extremities to inspection Extremities: normal pulses Neurological: RADIO REPAIRER II-XII intact, nl mental status Skin: nl turgor Lymph: nl lymph nodes Results Result Diagram: 01/20/17 0640 01/20/17 0640 Results 24 hrs Laboratory Tests Test 01/20/17 06:40 White Blood Count 9.9 # Red Blood Count 3.46 L Hemoglobin 10.8 L Hematocrit 34.3 L Mean Corpuscular Volume 99.1 Mean Corpuscular Hemoglobin 31.2 Mean Corpuscular Hemoglobin Concent 31.5 L Red Cell Distribution Width 19.1 H Platelet Count 324 Mean Platelet Volume 11.2 H Neutrophils % 79.2 H Lymphocytes % 7.9 L Monocytes % 9.7 Eosinophils % 2.2 Basophils % 0.0 Nucleated Red Blood Cells % 0.0 Neutrophils # 7.9 H Lymphocytes # 0.8 Monocytes # 1.0 H Eosinophils # 0.2 Basophils # 0.0 Nucleated Red Blood Cells # 0.0 Sodium Level 139 Potassium Level 3.7 Chloride Level 99 Carbon Dioxide Level 31 Anion Gap 13 Blood Urea Nitrogen 15 Creatinine 0.44 Glucose Level 82 Calcium Level 9.0 Total Bilirubin 1.8 H Direct Bilirubin 0.30 H Indirect Bilirubin 1.5 H Aspartate Amino Transf (AST/SGOT) 56 H Alanine Aminotransferase (ALT/SGPT) 48 Alkaline Phosphatase 182 H Total Protein 6.6 Albumin 3.6 Globulin 3.00 Albumin/Globulin Ratio 1.20 Medications Medications Current Medications Ondansetron HCl (Zofran Inj) 4 mg Q6H PRN IV NAUSEA AND/OR VOMITING Last administered on 01/05/17 02:20; Admin Dose 4 MG; Start 12/20/16 at 07:30 Acetaminophen (Tylenol Tab) 650 mg Q6H PRN PO PAIN LEVEL 1-3 OR FEVER Last administered on 01/11/17 19:27; Admin Dose 650 MG; Start 12/20/16 at 07:30 Morphine Sulfate (morphine) 4 mg Q4H PRN IV SEVERE PAIN LEVEL 7-10 Last administered on 01/12/17 11:23; Admin Dose 4 MG; Start 12/20/16 at 07:30 Amlodipine Besylate (Norvasc) 5 mg DAILY PO Last administered on 01/19/17 08:58 ; Admin Dose 5 MG; Start 12/21/16 at 09:00 Acetaminophen/ Hydrocodone Bitart ([place] (5/325)) 1 tab Q6H PRN PO PAIN LEVEL 7 -10 Last administered on 01/19/17 23:10; Admin Dose 1 TAB; Start 12/30/16 at 18: 00 Hydromorphone HCl (Dilaudid) 1 mg Q4H PRN IV SEVERE PAIN LEVEL 7-10 Last administered on 01/05/17 02:21; Admin Dose 1 MG; Start 01/02/17 at 17:45 Senna (Senokot) 1 tab BID PO Last administered on 01/18/17 21:18; Admin Dose 1 TAB; Start 01/03/17 at 21:00 Lorazepam (Ativan) 1 mg Q1H PRN IV Seizures Last administered on 01/12/17 14:31 ; Admin Dose 1 MG; Start 01/04/17 at 19:30 IV Flush (NS 10 ml) 10 ml PRN PRN IV FLUSH LINE; Start 01/04/17 at 20:00 Morphine Sulfate (morphine) 2 mg Q4H PRN IV pain Last administered on 01/18/17 21:18; Admin Dose 2 MG; Start 01/05/17 at 01:30 Pantoprazole (Protonix Iv) 40 mg DAILY@06 IV Last administered on 01/20/17 06: 16; Admin Dose 40 MG; Start 01/05/17 at 06:30 Lorazepam (Ativan) 1 mg Q4H PRN IV agitation Last administered on 01/12/17 21: 54; Admin Dose 1 MG; Start 01/05/17 at 07:00 Hydralazine HCl 10 mg 10 mg Q2H PRN IV SBP >170 Last administered on 01/12/17 22:01; Admin Dose 10 MG; Start 01/06/17 at 03:00 Potassium Chloride/Dextrose (KCl/D5W) 1,015 ml @ 50 mls/hr [id number] IV Last administered on 01/19/17 20:37; Admin Dose 50 MLS/HR; Start 01/11/17 at 07:00 Miscellaneous Information 1 ea NOTE XX ; Start 01/15/17 at 10:30 Diphenhydramine HCl (Benadryl) 25 mg Q6H PRN IV SLEEP Last administered on 23:33; Admin Dose 25 MG; Start 01/15/17 at 13:30 Docusate Sodium (Colace) 100 mg BID PO Last administered on 01/18/17 21:18; Admin Dose 100 MG; Start 01/16/17 at 21:00 Furosemide (Lasix) 20 mg DAILY IV Last administered on 01/19/17 08:58; Admin Dose 20 MG; Start 01/18/17 at 09:00 Prednisone (Prednisone) 40 mg DAILY PO Last administered on 01/19/17 08:57; Admin Dose 40 MG; Start 01/19/17 at 09:00 Copies To: CC: KAYLA NAPOLES MD,ECTOR Garcia MD Jan 20, 2017 08:35
[2017-01-20] MEDS: FUROSEMIDE 20 MG INJ IV SCH (09:05)
[2017-01-20] MEDS: predniSONE 20 MG TAB PO SCH (09:06)
[2017-01-20] MEDS: AMLODIPINE 5 MG TAB PO SCH (09:06)
--- NOTE | 2017-01-20 10:28 | PN ---
Date/Time of Note Date/Time of Note DATE: 01/20/17 TIME: 10:25 Assessment/Plan VTE Prophylaxis VTE Prophylaxis Intervention: ambulation, SCD's VTE Contraindication Reason: thrombocytopenia Lines/Catheters IV Catheter Type (from Nrsg): PICC Line Central line still needed: Yes Urinary Cath still in place: No Assessment/Plan Assessment/Plan 1. S/p severe systemic shock likely hypovolemic from acute intra-abdominal hemorrhage / subcapsular hepatic hematoma causing severe coagulopathy: resolved 2. Persistent resp failure 2/2 aspiration pneumonia: resolved / s/p extubation 3. Acute encephalopathy secondary to pneumonia-resolved 4. Recurrence of acute kidney injury secondary to #1: improving 5. 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 Hypertension: better control 7. Diffuse venous thrombosis to include hepatic, portal, and right upper extremity veins 8. Status post alpha hemolytic strep bacteremia 9. Solitary seizure episode likely secondary to #1 10. Acute transaminitis and coagulopathy secondary to subcapsular hematoma s/ p status post hepatic artery ligation versus embolization via IR : Improving 11. [place] Pneumonia R >>L. * Had lung nodules on admission likely 2/2 pneumonia, no longer present on CT 12. Debility 13. Mild hepatic infarct on CT likely related to #10 14. Persistent hypokalemia and hypophosphatemia: resolved 15. Jaundice-bilirubin trending down Plan: * Elevated Haptoglobin levels concerning for hemolysis, levels are trending down , f/u hematology recs * Resp status has stabilized, patient now on room air * Patient remains on D5 water with potassium chloride, but is also on Lasix for diuresis * Recommendation per pulmonology is to continue p.o. steroids and taper down over the course of next several month * Continue to closely monitor liver function which is improving * Patient remains off anticoagulation d/t bleeding * Patient now off antibiotics * No further seizures * Regarding uterine lesion, per Dr. Jaimes of gynecology oncology no indication for biopsy or further intervention as patient is asymptomatic and masses are believed to be secondary to fibroids Prophylaxis: SCDs/IV PPI Dispo: obtain d/c cleareance from all consults Subjective 24 Hr Interval Summary Free Text/Dictation Patient is sitting in a chair at bedside. feeling a lot better and looking much better from my last review Exam/Review of Systems Vital Signs Vitals Vital Signs Date Time Temp Pulse Resp B/P Pulse Ox O2 Delivery O2 Flow Rate FiO2 01/20/17 08:12 77 01/20/17 07:51 98.4 20 133/64 98 01/20/17 07:31 Nasal Cannula 2.0 01/16/17 11:15 30 Intake and Output 01/19/17 01/19/17 01/20/17 14:59 22:59 06:59 Intake Total 860 ml 1000 ml Balance 860 ml 1000 ml Exam Constitutional: alert, frail, oriented Psych: depression Head: normocephalic Eyes: icteric ENMT: mucosa pink and moist Neck: supple Respiratory: clear to auscultation Cardiovascular: regular rate and rhythm, No murmurs/extra sounds Gastrointestinal: bowel sounds, non-tender, soft Extremities: No edema Neurological: nl mental status, nl speech, No focal weakness Results Result Diagram: 01/20/1740 01/20/17 0640 Results 24 hrs Laboratory Tests Test 01/20/17 06:40 White Blood Count 9.9 # Red Blood Count 3.46 L Hemoglobin 10.8 L Hematocrit 34.3 L Mean Corpuscular Volume 99.1 Mean Corpuscular Hemoglobin 31.2 Mean Corpuscular Hemoglobin Concent 31.5 L Red Cell Distribution Width 19.1 H Platelet Count 324 Mean Platelet Volume 11.2 H Neutrophils % 79.2 H Lymphocytes % 7.9 L Monocytes % 9.7 Eosinophils % 2.2 Basophils % 0.0 Nucleated Red Blood Cells % 0.0 Neutrophils # 7.9 H Lymphocytes # 0.8 Monocytes # 1.0 H Eosinophils # 0.2 Basophils # 0.0 Nucleated Red Blood Cells # 0.0 Sodium Level 139 Potassium Level 3.7 Chloride Level 99 Carbon Dioxide Level 31 Anion Gap 13 Blood Urea Nitrogen 15 Creatinine 0.44 Glucose Level 82 Calcium Level 9.0 Total Bilirubin 1.8 H Direct Bilirubin 0.30 H Indirect Bilirubin 1.5 H Aspartate Amino Transf (AST/SGOT) 56 H Alanine Aminotransferase (ALT/SGPT) 48 Alkaline Phosphatase 182 H Lactate Dehydrogenase 2578 H Total Protein 6.6 Albumin 3.6 Globulin 3.00 Albumin/Globulin Ratio 1.20 Medications Medications Current Medications Ondansetron HCl (Zofran Inj) 4 mg Q6H PRN IV NAUSEA AND/OR VOMITING Last administered on 01/05/17 02:20; Admin Dose 4 MG; Start 12/20/16 at 07:30 Acetaminophen (Tylenol Tab) 650 mg Q6H PRN PO PAIN LEVEL 1-3 OR FEVER Last administered on 01/11/17 19:27; Admin Dose 650 MG; Start 12/20/16 at 07:30 Morphine Sulfate (morphine) 4 mg Q4H PRN IV SEVERE PAIN LEVEL 7-10 Last administered on 01/12/17 11:23; Admin Dose 4 MG; Start 12/20/16 at 07:30 Amlodipine Besylate (Norvasc) 5 mg DAILY PO Last administered on 01/20/17 09: 06; Admin Dose 5 MG; Start 12/21/16 at 09:00 Acetaminophen/ Hydrocodone Bitart ([place] (5/325)) 1 tab Q6H PRN PO PAIN LEVEL 7 -10 Last administered on 01/19/17 23:10; Admin Dose 1 TAB; Start 12/30/16 at 18: 00 Hydromorphone HCl (Dilaudid) 1 mg Q4H PRN IV SEVERE PAIN LEVEL 7-10 Last administered on 01/05/17 02:21; Admin Dose 1 MG; Start 01/02/17 at 17:45 Senna (Senokot) 1 tab BID PO Last administered on 01/18/17 21:18; Admin Dose 1 TAB; Start 01/03/17 at 21:00 Lorazepam (Ativan) 1 mg Q1H PRN IV Seizures Last administered on 01/12/17 14:31 ; Admin Dose 1 MG; Start 01/04/17 at 19:30 IV Flush (NS 10 ml) 10 ml PRN PRN IV FLUSH LINE; Start 01/04/17 at 20:00 Morphine Sulfate (morphine) 2 mg Q4H PRN IV pain Last administered on 01/18/17 21:18; Admin Dose 2 MG; Start 01/05/17 at 01:30 Pantoprazole (Protonix Iv) 40 mg DAILY@06 IV Last administered on 01/20/17 06: 16; Admin Dose 40 MG; Start 01/05/17 at 06:30 Lorazepam (Ativan) 1 mg Q4H PRN IV agitation Last administered on 01/12/17 21: 54; Admin Dose 1 MG; Start 01/05/17 at 07:00 Hydralazine HCl 10 mg 10 mg Q2H PRN IV SBP >170 Last administered on 01/12/17 22:01; Admin Dose 10 MG; Start 01/06/17 at 03:00 Potassium Chloride/Dextrose (KCl/D5W) 1,015 ml @ 50 mls/hr [id number] IV Last administered on 01/19/17 20:37; Admin Dose 50 MLS/HR; Start 01/11/17 at 07:00 Miscellaneous Information 1 ea NOTE XX ; Start 01/15/17 at 10:30 Diphenhydramine HCl (Benadryl) 25 mg Q6H PRN IV SLEEP Last administered on 23:33; Admin Dose 25 MG; Start 01/15/17 at 13:30 Docusate Sodium (Colace) 100 mg BID PO Last administered on 01/18/17 21:18; Admin Dose 100 MG; Start 01/16/17 at 21:00 Furosemide (Lasix) 20 mg DAILY IV Last administered on 01/20/17 09:05; Admin Dose 20 MG; Start 01/18/17 at 09:00 Prednisone (Prednisone) 40 mg DAILY PO Last administered on 01/20/17 09:06; Admin Dose 40 MG; Start 01/19/17 at 09:00 Procedures Procedures PROCEDURE: XR Chest. CLINICAL INDICATION: Shortness of breath TECHNIQUE: A single AP view of the chest was obtained. COMPARISON: Chest x-ray dated 01/14/2017 FINDINGS: There is a left upper extremity PICC line with tip near the cavoatrial junction. Lung volumes are low with compressive changes, vascular crowding and basilar atelectasis. No focal airspace opacity, pleural effusion or pneumothorax is seen. The cardiomediastinal silhouette is within normal limits for size. The osseous structures are unremarkable. IMPRESSION: 1. Low lung volumes with compressive changes and basilar atelectasis. No significant interval change. 2. Left upper extremity PICC line with tip near the cavoatrial junction RPTAT: HH .Jasmina Harrison MD, MD Date Time Electronically viewed and signed by .Jasmina Harrison MD, on 01/16/2017 07 :36 .G/ CC: JASON ROUSE MD, [facility] Jan 20, 2017 10:27
[2017-01-20] MEDS: POTASSIUM CHLORIDE 30 MEQ in DEXTROSE 5% 1,000 ML IV SCH ×2 (11:49→22:00)
--- NOTE | 2017-01-20 12:42 | CONS ---
Date/Time of Note Date/Time of Note DATE: 01/20/17 TIME: 12:41 Assessment/Plan Assessment/Plan Chief Complaint/Hosp Course No acute events overnight, patient is alert, denies pain discomfort, no fevers. She is sitting up in a chair, no disorder Indwelling's: PICC line Physical examination: Morbidly obese, well-developed middle-aged woman who is alert in no distress. Head atraumatic normocephalic, sclera nonicteric. Neck is obese, trachea midline. Chest rise symmetrical breath sounds diminished basis. Heart S1-S2. Abdomen soft distended bowel tones hypoactive. Extremities with trace edema Assessment: 1. Status post acute respiratory failure 2. Status post healthcare associated pneumonia 3. Status post hepatic hemorrhage secondary to liver biopsy 4. 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 Hepatic and portal vein thrombosis 6. Status post streptococcal bacteremia on admission with repeat blood cultures being negative 7. Uterine lesion, possibly malignant Plan: Remains stable, off antibiotics, continue present care, follow recommendations of consultants, repeat cultures as needed Discussed with patient Problems: Consultation Date/Type/Reason Admit Date/Time Dec 19, 2016 at 21:34 Initial Consult Date 12/20/16 Type of Consultation: ID Referring Provider: KAHLIL MARTEL Exam/Review of Systems Vital Signs Vitals Vital Signs Date Time Temp Pulse Resp B/P Pulse Ox O2 Delivery O2 Flow Rate FiO2 01/20/17 12:37 113 01/20/17 11:44 97.5 20 118/68 98 01/20/17 07:31 Nasal Cannula 2.0 01/16/17 11:15 30 Intake and Output 01/19/17 01/19/17 01/20/17 15:00 23:00 07:00 Intake Total 860 ml 1000 ml Balance 860 ml 1000 ml Results Result Diagram: 01/20/17 0640 01/20/17 0640 Results 24 hrs Laboratory Tests Test 01/20/17 06:40 White Blood Count 9.9 # Red Blood Count 3.46 L Hemoglobin 10.8 L Hematocrit 34.3 L Mean Corpuscular Volume 99.1 Mean Corpuscular Hemoglobin 31.2 Mean Corpuscular Hemoglobin Concent 31.5 L Red Cell Distribution Width 19.1 H Platelet Count 324 Mean Platelet Volume 11.2 H Neutrophils % 79.2 H Lymphocytes % 7.9 L Monocytes % 9.7 Eosinophils % 2.2 Basophils % 0.0 Nucleated Red Blood Cells % 0.0 Neutrophils # 7.9 H Lymphocytes # 0.8 Monocytes # 1.0 H Eosinophils # 0.2 Basophils # 0.0 Nucleated Red Blood Cells # 0.0 Sodium Level 139 Potassium Level 3.7 Chloride Level 99 Carbon Dioxide Level 31 Anion Gap 13 Blood Urea Nitrogen 15 Creatinine 0.44 Glucose Level 82 Calcium Level 9.0 Total Bilirubin 1.8 H Direct Bilirubin 0.30 H Indirect Bilirubin 1.5 H Aspartate Amino Transf (AST/SGOT) 56 H Alanine Aminotransferase (ALT/SGPT) 48 Alkaline Phosphatase 182 H Lactate Dehydrogenase 2578 H Total Protein 6.6 Albumin 3.6 Globulin 3.00 Albumin/Globulin Ratio 1.20 Medications Medications Current Medications Ondansetron HCl (Zofran Inj) 4 mg Q6H PRN IV NAUSEA AND/OR VOMITING Last administered on 01/05/17 02:20; Admin Dose 4 MG; Start 12/20/16 at 07:30 Acetaminophen (Tylenol Tab) 650 mg Q6H PRN PO PAIN LEVEL 1-3 OR FEVER Last administered on 01/11/17 19:27; Admin Dose 650 MG; Start 12/20/16 at 07:30 Morphine Sulfate (morphine) 4 mg Q4H PRN IV SEVERE PAIN LEVEL 7-10 Last administered on 01/12/17 11:23; Admin Dose 4 MG; Start 12/20/16 at 07:30 Amlodipine Besylate (Norvasc) 5 mg DAILY PO Last administered on 01/20/17 09: 06; Admin Dose 5 MG; Start 12/21/16 at 09:00 Acetaminophen/ Hydrocodone Bitart ([place] (5/325)) 1 tab Q6H PRN PO PAIN LEVEL 7 -10 Last administered on 01/19/17 23:10; Admin Dose 1 TAB; Start 12/30/16 at 18: 00 Hydromorphone HCl (Dilaudid) 1 mg Q4H PRN IV SEVERE PAIN LEVEL 7-10 Last administered on 01/05/17 02:21; Admin Dose 1 MG; Start 01/02/17 at 17:45 Senna (Senokot) 1 tab BID PO Last administered on 01/18/17 21:18; Admin Dose 1 TAB; Start 01/03/17 at 21:00 Lorazepam (Ativan) 1 mg Q1H PRN IV Seizures Last administered on 01/12/17 14:31 ; Admin Dose 1 MG; Start 01/04/17 at 19:30 IV Flush (NS 10 ml) 10 ml PRN PRN IV FLUSH LINE; Start 01/04/17 at 20:00 Morphine Sulfate (morphine) 2 mg Q4H PRN IV pain Last administered on 01/18/17 21:18; Admin Dose 2 MG; Start 01/05/17 at 01:30 Pantoprazole (Protonix Iv) 40 mg DAILY@06 IV Last administered on 01/20/17 06: 16; Admin Dose 40 MG; Start 01/05/17 at 06:30 Lorazepam (Ativan) 1 mg Q4H PRN IV agitation Last administered on 01/12/17 21: 54; Admin Dose 1 MG; Start 01/05/17 at 07:00 Hydralazine HCl 10 mg 10 mg Q2H PRN IV SBP >170 Last administered on 01/12/17 22:01; Admin Dose 10 MG; Start 01/06/17 at 03:00 Potassium Chloride/Dextrose (KCl/D5W) 1,015 ml @ 50 mls/hr [id number] IV Last administered on 01/19/17 20:37; Admin Dose 50 MLS/HR; Start 01/11/17 at 07:00 Miscellaneous Information 1 ea NOTE XX ; Start 01/15/17 at 10:30 Diphenhydramine HCl (Benadryl) 25 mg Q6H PRN IV SLEEP Last administered on 23:33; Admin Dose 25 MG; Start 01/15/17 at 13:30 Docusate Sodium (Colace) 100 mg BID PO Last administered on 01/18/17 21:18; Admin Dose 100 MG; Start 01/16/17 at 21:00 Furosemide (Lasix) 20 mg DAILY IV Last administered on 01/20/17 09:05; Admin Dose 20 MG; Start 01/18/17 at 09:00 Prednisone (Prednisone) 40 mg DAILY PO Last administered on 01/20/17 09:06; Admin Dose 40 MG; Start 01/19/17 at 09:00 NANCY HULL NP Jan 20, 2017 12:42
--- NOTE | 2017-01-20 15:16 | CONS ---
Date/Time of Note Date/Time of Note DATE: 01/20/17 TIME: 15:15 Consult Date/Type/Reason Admit Date/Time Dec 19, 2016 at 21:34 Initial Consult Date 12/20/16 Type of Consultation: Pulmonary Ordering Provider: KAHLIL MARTEL Subjective Patient stable this morning no new events continues to improve slowly. Objective Vital Signs Date Time Temp Pulse Resp B/P Pulse Ox O2 Delivery O2 Flow Rate FiO2 01/20/17 12:37 113 01/20/17 11:44 97.5 20 118/68 98 01/20/17 07:31 Nasal Cannula 2.0 01/16/17 11:15 30 Intake and Output 01/19/17 01/19/17 01/20/17 15:00 23:00 07:00 Intake Total 860 ml 1000 ml Balance 860 ml 1000 ml Exam GENERAL: VITAL SIGNS: per chart NECK: Supple. No JVD or lymphadenopathy. CARDIAC EXAM: S1, S2. No added sounds or murmurs. CHEST: clear bilaterally, No added sounds, rales or wheezes ABDOMEN: Soft, nontender. No guarding or rebound. EXTREMITIES: No cyanosis, clubbing or edema. NEUROLOGIC: Generalized weakness. No focal deficits. Results/Medications Result Diagram: 01/20/17 0640 01/20/17 0640 Results 24 hrs Laboratory Tests Test 01/20/17 06:40 White Blood Count 9.9 # Red Blood Count 3.46 L Hemoglobin 10.8 L Hematocrit 34.3 L Mean Corpuscular Volume 99.1 Mean Corpuscular Hemoglobin 31.2 Mean Corpuscular Hemoglobin Concent 31.5 L Red Cell Distribution Width 19.1 H Platelet Count 324 Mean Platelet Volume 11.2 H Neutrophils % 79.2 H Lymphocytes % 7.9 L Monocytes % 9.7 Eosinophils % 2.2 Basophils % 0.0 Nucleated Red Blood Cells % 0.0 Neutrophils # 7.9 H Lymphocytes # 0.8 Monocytes # 1.0 H Eosinophils # 0.2 Basophils # 0.0 Nucleated Red Blood Cells # 0.0 Sodium Level 139 Potassium Level 3.7 Chloride Level 99 Carbon Dioxide Level 31 Anion Gap 13 Blood Urea Nitrogen 15 Creatinine 0.44 Glucose Level 82 Calcium Level 9.0 Total Bilirubin 1.8 H Direct Bilirubin 0.30 H Indirect Bilirubin 1.5 H Aspartate Amino Transf (AST/SGOT) 56 H Alanine Aminotransferase (ALT/SGPT) 48 Alkaline Phosphatase 182 H Lactate Dehydrogenase 2578 H Total Protein 6.6 Albumin 3.6 Globulin 3.00 Albumin/Globulin Ratio 1.20 Medications Current Medications Ondansetron HCl (Zofran Inj) 4 mg Q6H PRN IV NAUSEA AND/OR VOMITING Last administered on 01/05/17 02:20; Admin Dose 4 MG; Start 12/20/16 at 07:30 Acetaminophen (Tylenol Tab) 650 mg Q6H PRN PO PAIN LEVEL 1-3 OR FEVER Last administered on 01/11/17 19:27; Admin Dose 650 MG; Start 12/20/16 at 07:30 Morphine Sulfate (morphine) 4 mg Q4H PRN IV SEVERE PAIN LEVEL 7-10 Last administered on 01/12/17 11:23; Admin Dose 4 MG; Start 12/20/16 at 07:30 Amlodipine Besylate (Norvasc) 5 mg DAILY PO Last administered on 01/20/17 09: 06; Admin Dose 5 MG; Start 12/21/16 at 09:00 Acetaminophen/ Hydrocodone Bitart ([place] (5/325)) 1 tab Q6H PRN PO PAIN LEVEL 7 -10 Last administered on 01/19/17 23:10; Admin Dose 1 TAB; Start 12/30/16 at 18: 00 Hydromorphone HCl (Dilaudid) 1 mg Q4H PRN IV SEVERE PAIN LEVEL 7-10 Last administered on 01/05/17 02:21; Admin Dose 1 MG; Start 01/02/17 at 17:45 Senna (Senokot) 1 tab BID PO Last administered on 01/18/17 21:18; Admin Dose 1 TAB; Start 01/03/17 at 21:00 Lorazepam (Ativan) 1 mg Q1H PRN IV Seizures Last administered on 01/12/17 14:31 ; Admin Dose 1 MG; Start 01/04/17 at 19:30 IV Flush (NS 10 ml) 10 ml PRN PRN IV FLUSH LINE; Start 01/04/17 at 20:00 Morphine Sulfate (morphine) 2 mg Q4H PRN IV pain Last administered on 01/18/17 21:18; Admin Dose 2 MG; Start 01/05/17 at 01:30 Pantoprazole (Protonix Iv) 40 mg DAILY@06 IV Last administered on 01/20/17 06: 16; Admin Dose 40 MG; Start 01/05/17 at 06:30 Lorazepam (Ativan) 1 mg Q4H PRN IV agitation Last administered on 01/12/17 21: 54; Admin Dose 1 MG; Start 01/05/17 at 07:00 Hydralazine HCl 10 mg 10 mg Q2H PRN IV SBP >170 Last administered on 01/12/17 22:01; Admin Dose 10 MG; Start 01/06/17 at 03:00 Potassium Chloride/Dextrose (KCl/D5W) 1,015 ml @ 50 mls/hr [id number] IV Last administered on 01/19/17 20:37; Admin Dose 50 MLS/HR; Start 01/11/17 at 07:00 Miscellaneous Information 1 ea NOTE XX ; Start 01/15/17 at 10:30 Diphenhydramine HCl (Benadryl) 25 mg Q6H PRN IV SLEEP Last administered on 23:33; Admin Dose 25 MG; Start 01/15/17 at 13:30 Docusate Sodium (Colace) 100 mg BID PO Last administered on 01/18/17 21:18; Admin Dose 100 MG; Start 01/16/17 at 21:00 Furosemide (Lasix) 20 mg DAILY IV Last administered on 01/20/17 09:05; Admin Dose 20 MG; Start 01/18/17 at 09:00 Prednisone (Prednisone) 40 mg DAILY PO Last administered on 01/20/17 09:06; Admin Dose 40 MG; Start 01/19/17 at 09:00 Assessment/Plan Chief Complaint/Hosp Course IMP: 1. Status post septic Shock 2. Respiratory Failure secondary to hypoventilation from abdominal distention. Low lung volumes resulting in hypercapnia and hypoxemic respiratory failure 3. Encephalopathy, resolved 4. s/p GRICELDA 5. 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 Steroid exacerbated hyperglycemia RECS: 1. Continue prednisone 40 mg daily; would taper slowly over a course of months. 2. Consider bactrim for PJP prophylaxis given alf CS use. Discharge planning Problems: JASON ROUSE MD, [facility] Jan 20, 2017 15:16
[2017-01-21] VITALS (9 sets, daily range): BP systolic 122–136; BP diastolic 62–74; PULSE 84–100; RESP 16–20
[2017-01-21] MEDS ORDERED: PANTOPRAZOLE (EC) 40 MG TAB PO SCH (06:00)
[2017-01-21] MEDS: morphine 2 MG INJ IV PRN (06:23)
[2017-01-21] MEDS: FUROSEMIDE 20 MG INJ IV SCH (08:37)
[2017-01-21] MEDS: predniSONE 20 MG TAB PO SCH (08:39)
[2017-01-21] MEDS: SENNA TAB PO SCH (08:39)
[2017-01-21] MEDS: DOCUSATE SODIUM 100 MG CAP PO SCH (08:39)
[2017-01-21] MEDS: AMLODIPINE 5 MG TAB PO SCH (08:40)
--- NOTE | 2017-01-21 12:40 | CONS ---
Date/Time of Note Date/Time of Note DATE: 01/21/17 TIME: 12:39 Consult Date/Type/Reason Admit Date/Time Dec 19, 2016 at 21:34 Initial Consult Date 12/20/16 Type of Consultation: Pulmonary Ordering Provider: KAHLIL MARTEL Subjective Comfortable. No shortness of breath Objective Vital Signs Date Time Temp Pulse Resp B/P Pulse Ox O2 Delivery O2 Flow Rate FiO2 01/21/17 12:12 89 01/21/17 08:00 Nasal Cannula 2.0 01/21/17 07:49 98.2 19 123/62 98 Intake and Output 01/20/17 01/20/17 01/21/17 14:59 22:59 06:59 Intake Total 1515 ml 850 ml Balance 1515 ml 850 ml Exam GENERAL: VITAL SIGNS: per chart NECK: Supple. No JVD or lymphadenopathy. CARDIAC EXAM: S1, S2. No added sounds or murmurs. CHEST: clear bilaterally, No added sounds, rales or wheezes ABDOMEN: Soft, nontender. No guarding or rebound. EXTREMITIES: No cyanosis, clubbing or edema. NEUROLOGIC: Generalized weakness. No focal deficits. Results/Medications Result Diagram: 01/20/1763901/20/1740 Results 24 hrs Laboratory Tests Test 01/21/17 11:54 Lab Scanned Report REFERENCE LAB Medications Current Medications Ondansetron HCl (Zofran Inj) 4 mg Q6H PRN IV NAUSEA AND/OR VOMITING Last administered on 01/05/17 02:20; Admin Dose 4 MG; Start 12/20/16 at 07:30 Acetaminophen (Tylenol Tab) 650 mg Q6H PRN PO PAIN LEVEL 1-3 OR FEVER Last administered on 01/11/17 19:27; Admin Dose 650 MG; Start 12/20/16 at 07:30 Morphine Sulfate (morphine) 4 mg Q4H PRN IV SEVERE PAIN LEVEL 7-10 Last administered on 01/12/17 11:23; Admin Dose 4 MG; Start 12/20/16 at 07:30 Amlodipine Besylate (Norvasc) 5 mg DAILY PO Last administered on 01/21/17 08: 40; Admin Dose 5 MG; Start 12/21/16 at 09:00 Acetaminophen/ Hydrocodone Bitart ([place] (5/325)) 1 tab Q6H PRN PO PAIN LEVEL 7 -10 Last administered on 01/19/17 23:10; Admin Dose 1 TAB; Start 12/30/16 at 18: 00 Hydromorphone HCl (Dilaudid) 1 mg Q4H PRN IV SEVERE PAIN LEVEL 7-10 Last administered on 01/05/17 02:21; Admin Dose 1 MG; Start 01/02/17 at 17:45 Senna (Senokot) 1 tab BID PO Last administered on 01/21/17 08:39; Admin Dose 1 TAB; Start 01/03/17 at 21:00 Lorazepam (Ativan) 1 mg Q1H PRN IV Seizures Last administered on 01/12/17 14:31 ; Admin Dose 1 MG; Start 01/04/17 at 19:30 IV Flush (NS 10 ml) 10 ml PRN PRN IV FLUSH LINE; Start 01/04/17 at 20:00 Morphine Sulfate (morphine) 2 mg Q4H PRN IV pain Last administered on 06:23; Admin Dose 2 MG; Start 01/05/17 at 01:30 Lorazepam (Ativan) 1 mg Q4H PRN IV agitation Last administered on 01/12/17 21: 54; Admin Dose 1 MG; Start 01/05/17 at 07:00 Hydralazine HCl 10 mg 10 mg Q2H PRN IV SBP >170 Last administered on 01/12/17 22:01; Admin Dose 10 MG; Start 01/06/17 at 03:00 Potassium Chloride/Dextrose (KCl/D5W) 1,015 ml @ 50 mls/hr [id number] IV Last administered on 01/20/17 22:00; Admin Dose 50 MLS/HR; Start 01/11/17 at 07:00 Miscellaneous Information 1 ea NOTE XX ; Start 01/15/17 at 10:30 Diphenhydramine HCl (Benadryl) 25 mg Q6H PRN IV SLEEP Last administered on 23:33; Admin Dose 25 MG; Start 01/15/17 at 13:30 Docusate Sodium (Colace) 100 mg BID PO Last administered on 01/21/17 08:39; Admin Dose 100 MG; Start 01/16/17 at 21:00 Furosemide (Lasix) 20 mg DAILY IV Last administered on 01/21/17 08:37; Admin Dose 20 MG; Start 01/18/17 at 09:00 Prednisone (Prednisone) 40 mg DAILY PO Last administered on 01/21/17 08:39; Admin Dose 40 MG; Start 01/19/17 at 09:00 Pantoprazole (Protonix Tab) 40 mg DAILY@06 PO Last administered on 01/21/17 06 :23; Admin Dose 40 MG; Start 01/21/17 at 06:00 Assessment/Plan Chief Complaint/Hosp Course IMP: 1. Status post septic Shock 2. Respiratory Failure secondary to hypoventilation from abdominal distention. Low lung volumes resulting in hypercapnia and hypoxemic respiratory failure 3. Encephalopathy, resolved 4. s/p GRICELDA 5. 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 Steroid exacerbated hyperglycemia RECS: 1. Continue prednisone 40 mg daily; would taper slowly over a course of months. 2. Consider bactrim for PJP prophylaxis given half-way CS use. Discharge planning Problems: JASON ROUSE MD, [facility] Jan 21, 2017 12:40
[2017-01-21] MEDS ORDERED: LORAZEPAM 1 MG TAB PO PRN (13:00)
[2017-01-21] MEDS ORDERED: PRED5 PO (13:06)
[2017-01-21] MEDS ORDERED: PRED20TA PO (13:06)
[2017-01-21] MEDS ORDERED: PRED10TA PO (13:06)
--- NOTE | 2017-01-21 13:09 | PDOCDIS ---
Discharge Instructions DIAGNOSIS Discharge Diagnosis IGg 4 disease Systemic shock Hepatic and pulmonary nodules secondary to #1: resolved . CONDITION Patient Condition: Stable HOME CARE INSTRUCTIONS: Special Diet: Regular FOLLOW UP/APPOINTMENTS Follow-up Plan Please followup with your PCP within the week to notify them of hospital events and to obtain Gynecology referral for uterine myoma. KAHLIL MARTEL Jan 21, 2017 13:09
--- NOTE | 2017-01-21 13:10 | DS ---
Date/Time of Note Date/Time of Note DATE: 01/21/17 TIME: 13:09 Discharge Summary Admission/Discharge Info Admit Date/Time Dec 19, 2016 at 21:34 Discharge Date/Time December 22, 2016 . Discharge Diagnosis 1. S/p severe systemic shock likely hypovolemic from acute intra-abdominal hemorrhage / subcapsular hepatic hematoma causing severe coagulopathy: resolved 2. Persistent resp failure 2/2 aspiration pneumonia: resolved / s/p extubation 3. Acute encephalopathy secondary to pneumonia-resolved 4. Recurrence of acute kidney injury secondary to #1: improving 5. 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 Hypertension: better control 7. Diffuse venous thrombosis to include hepatic, portal, and right upper extremity veins 8. Status post alpha hemolytic strep bacteremia 9. Solitary seizure episode likely secondary to #1 10. Acute transaminitis and coagulopathy secondary to subcapsular hematoma s/ p status post hepatic artery ligation versus embolization via IR : Improving 11. Maurice Pneumonia R >>L. * Had lung nodules on admission likely 2/2 pneumonia, no longer present on CT 12. Debility 13. Mild hepatic infarct on CT likely related to #10 14. Persistent hypokalemia and hypophosphatemia: resolved 15. Jaundice-bilirubin trending down . Patient Condition: Stable Consults Multiple . Hx of Present Illness This is a 51-year-old female with a history of hypertension sent by her primary care doctor for admission for findings on CT abdomen and pelvis done yesterday. Patient states that she has been experiencing abd bloating and right upper quadrant and right flank pain for about 1 month with no associated nausea or vomiting. She has noted a 25 pound weight loss with night sweats and chills. She presented to the ER about 1 month ago for these symptoms and was diagnosed with possible gastroenteritis. Since then her symptoms have not improved. She complains of shortness of breath at rest and with exertion. She also has intermittent right-sided chest pain that started about 2 days ago. Yesterday she had a CT abdomen and pelvis with and without contrast that showed extensive portal vein thromboses and right hepatic vein thromboses, multiple low-density lesions in the liver, pulmonary nodules, and a soft tissue mass in the uterus. . Hospital Course Full details are available in the chart for review. This is a 51-year-old female who had a very interesting hospital course.She was brought in December 19, 2016 because of concerns for abdominal pain and lethargy and was found to have liver lesions with extensive portal as well as hepatic vein thrombosis per the family she has recently been diagnosed with possible metastatic cancer as evidenced by imaging that had shown some pulmonary nodules as well as liver nodules. She was also found to have an elevated CA 125. A CT scan was done with contrast and did not show any PE but he did show a 1.2 cm nodule. The decision was then made to try and get a liver ultrasound. However she developed acute kidney injury and this prevented her from getting an MRI with contrast which was needed before a liver ultrasound could be done. Nephrology was consulted and assisted in management and eventually she underwent an MRI with IV contrast December 28, 2016 9 days after presentation. This MRI continues to show numerous hepatic nodules. She was eventually biopsied via ultrasound December 30, 2016. Biopsy/pathology results came back showing inflammatory pseudotumor suggestive of IgG4 associated disease and for which sclerosing cholangitis cannot be ruled out. Unfortunately her postbiopsy course was complicated by severe intra-abdominal bleeding as well as hepatic subcapsular hematoma as patient was previously on a heparin drip for high extensive portal and hepatic artery thrombosis. The patient then went into systemic shock on possible DIC as she necessitated intensive care unit transfer and management. Because of shock related to also multiorgan failure including respiratory failure and she had to be intubated. Patient was aggressively managed with the assistance of pulmonary, nephrology, hematology, as well as infectious disease doctors. She eventually improved, she was successfully extubated. Postextubation however she remained in respiratory failure for a few days requiring BiPAP therapy as stating intensive care unit for a prolonged period of time she was eventually started on steroid therapy for her IgG4 disease and she responded dramatically to this. Within a few days posterior she was able to be weaned off the BiPAP, her LFTs and other indices improved and stayed stable. She has however developed a jaundice from hepatic hematoma, but this is slowly resolving. At this time though she is off anticoagulation because of the significant bleeding, will be discharged on aspirin therapy and recommended for outpatient follow-up with hematology. This has been communicated to her and her family. She is also to be continued on steroid tapering for the next few weeks. She was also seen by gynecology surgery for possible hysterectomy and fibroid tumor removal, but this was deferred for outpatient workup. . Home Meds Active Scripts Lactobacillus Rhamnosus* (Culturelle*) 1 Each Cap.sprink, 1 CAP PO BID for 42 Days, CAP Prov:KAHLIL MARTEL 01/21/17 Sulfamethoxazole/Trimethoprim* (Bactrim Ds* Tablet) 1 Each Tablet, 1 TAB PO DAILY for 42 Days, TAB Prov:KAHLIL MARTEL 01/21/17 Prednisone* (Prednisone*) 5 Mg Tab, 5 MG PO DAILY for 7 Days, TAB Start February 27 2017 Prov:KAHLIL MARTEL 01/21/17 Prednisone* (Prednisone*) 10 Mg Tab, 10 MG PO DAILY, #42 TAB starting February 05, 2017 take 3 pills daily for 1 week then take 2 pills daily for 1 week then take 1 pill daily for 1 week then stop Prov:KAHLIL MARTEL 01/21/17 Prednisone* (Prednisone*) 20 Mg Tab, 40 MG PO DAILY for 14 Days, TAB Prov:KAHLIL MARTEL 01/21/17 Primary Care Provider Iam Chance Time spent on discharge: > 30 minutes Pending Labs Laboratory Tests Test 01/21/17 11:54 Lab Scanned Report REFERENCE [id number] KAHLIL MARTEL Jan 21, 2017 13:10
[2017-01-21] MEDS ORDERED: SULF1TAB31 PO (13:12)
[2017-01-21] MEDS ORDERED: LACT1CAP57 PO (13:14)
--- NOTE | 2017-01-21 13:51 | CONS ---
Date/Time of Note Date/Time of Note DATE: 01/21/17 TIME: 13:48 Assessment/Plan Assessment/Plan Chief Complaint/Hosp Course No acute events overnight, patient is alert, denies pain discomfort, no fevers. She is sitting up in a chair, no disorder Physical examination: Morbidly obese, well-developed middle-aged woman who is alert in no distress. Head atraumatic normocephalic, sclera nonicteric. Neck is obese, trachea midline. Chest rise symmetrical breath sounds diminished basis. Heart S1-S2. Abdomen soft distended bowel tones hypoactive. Extremities with trace edema Assessment: 1. Status post acute respiratory failure 2. Status post healthcare associated pneumonia 3. Status post hepatic hemorrhage secondary to liver biopsy 4. 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 Hepatic and portal vein thrombosis 6. Status post streptococcal bacteremia on admission with repeat blood cultures being negative 7. Uterine lesion, possibly malignant Plan: Remains stable, off antibiotics, continue present care, follow recommendations of consultants, pending discharge home Discussed with patient Problems: Consultation Date/Type/Reason Admit Date/Time Dec 19, 2016 at 21:34 Initial Consult Date 12/20/16 Type of Consultation: ID Referring Provider: KAHLIL MARTEL Exam/Review of Systems Vital Signs Vitals Vital Signs Date Time Temp Pulse Resp B/P Pulse Ox O2 Delivery O2 Flow Rate FiO2 01/21/17 12:12 89 01/21/17 08:00 Nasal Cannula 2.0 01/21/17 07:49 98.2 19 123/62 98 Intake and Output 01/20/17 01/20/17 01/21/17 15:00 23:00 07:00 Intake Total 1515 ml 850 ml Balance 1515 ml 850 ml Results Result Diagram: 01/20/17 0640 01/20/17 0640 Results 24 hrs Laboratory Tests Test 01/21/17 11:54 Lab Scanned Report REFERENCE LAB Medications Medications Current Medications Ondansetron HCl (Zofran Inj) 4 mg Q6H PRN IV NAUSEA AND/OR VOMITING Last administered on 01/05/17 02:20; Admin Dose 4 MG; Start 12/20/16 at 07:30 Acetaminophen (Tylenol Tab) 650 mg Q6H PRN PO PAIN LEVEL 1-3 OR FEVER Last administered on 01/11/17 19:27; Admin Dose 650 MG; Start 12/20/16 at 07:30 Morphine Sulfate (morphine) 4 mg Q4H PRN IV SEVERE PAIN LEVEL 7-10 Last administered on 01/12/17 11:23; Admin Dose 4 MG; Start 12/20/16 at 07:30 Amlodipine Besylate (Norvasc) 5 mg DAILY PO Last administered on 01/21/17 08: 40; Admin Dose 5 MG; Start 12/21/16 at 09:00 Acetaminophen/ Hydrocodone Bitart ([place] (5/325)) 1 tab Q6H PRN PO PAIN LEVEL 7 -10 Last administered on 01/19/17 23:10; Admin Dose 1 TAB; Start 12/30/16 at 18: 00 Hydromorphone HCl (Dilaudid) 1 mg Q4H PRN IV SEVERE PAIN LEVEL 7-10 Last administered on 01/05/17 02:21; Admin Dose 1 MG; Start 01/02/17 at 17:45 Senna (Senokot) 1 tab BID PO Last administered on 01/21/17 08:39; Admin Dose 1 TAB; Start 01/03/17 at 21:00 Lorazepam (Ativan) 1 mg Q1H PRN IV Seizures Last administered on 01/12/17 14:31 ; Admin Dose 1 MG; Start 01/04/17 at 19:30 IV Flush (NS 10 ml) 10 ml PRN PRN IV FLUSH LINE; Start 01/04/17 at 20:00 Morphine Sulfate (morphine) 2 mg Q4H PRN IV pain Last administered on 06:23; Admin Dose 2 MG; Start 01/05/17 at 01:30 Hydralazine HCl 10 mg 10 mg Q2H PRN IV SBP >170 Last administered on 01/12/17 22:01; Admin Dose 10 MG; Start 01/06/17 at 03:00 Potassium Chloride/Dextrose (KCl/D5W) 1,015 ml @ 50 mls/hr [id number] IV Last administered on 01/20/17 22:00; Admin Dose 50 MLS/HR; Start 01/11/17 at 07:00 Miscellaneous Information 1 ea NOTE XX ; Start 01/15/17 at 10:30 Diphenhydramine HCl (Benadryl) 25 mg Q6H PRN IV SLEEP Last administered on 23:33; Admin Dose 25 MG; Start 01/15/17 at 13:30 Docusate Sodium (Colace) 100 mg BID PO Last administered on 01/21/17 08:39; Admin Dose 100 MG; Start 01/16/17 at 21:00 Furosemide (Lasix) 20 mg DAILY IV Last administered on 01/21/17 08:37; Admin Dose 20 MG; Start 01/18/17 at 09:00 Prednisone (Prednisone) 40 mg DAILY PO Last administered on 01/21/17 08:39; Admin Dose 40 MG; Start 01/19/17 at 09:00 Pantoprazole (Protonix Tab) 40 mg DAILY@06 PO Last administered on 01/21/17 06 :23; Admin Dose 40 MG; Start 01/21/17 at 06:00 Lorazepam (Ativan) 1 mg Q4H PRN PO agitation; Start 01/21/17 at 13:00 NANCY HULL NP Jan 21, 2017 13:51
--- NOTE | 2017-01-21 13:59 | PN ---
Date/Time of Note Date/Time of Note DATE: 01/21/17 TIME: 13:56 Assessment/Plan VTE Prophylaxis VTE Prophylaxis Intervention: contraindicated VTE Contraindication Reason: bleeding Lines/Catheters IV Catheter Type (from Nrsg): PICC Line Central line still needed: Yes Urinary Cath still in place: No Assessment/Plan Assessment/Plan 1. Acute respiratory failure resolved managed by pulmonary 2. Anemia acute CT scan Intraabdominal hemorrhage Very large mixed density acute subcapsular hematoma of the liver with moderate blood seen throughout the abdomen and pelvis. Right lower lobe atelectasis or infiltrate and small bilateral effusions. Horseshoe kidneys 3. Transaminitis improving 4. 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 COMMENT: This case has been reviewed by Dr. Carlos Garcia of [facility] who essentially concurs with our interpretation and he states that the histopathological features are suggestive of but not characteristic for inflammatory (myofibroblastic) pseudotumor, and due to difficulty in assessing IgG4/IgG ratio due to diffuse background staining a diagnosis of sclerosing cholangitis, which can be seen in IgG4-associated liver disease cannot be made at this time. Please see attached consultation report. 5. Portal vein thrombosis Plan * continue present management * Stable for outpatient management * Case discussed with Dr Raphael Subjective 24 Hr Interval Summary Free Text/Dictation * Course reviewed with RN * Patient seen and examined * No untoward events overnight Exam/Review of Systems Vital Signs Vitals Vital Signs Date Time Temp Pulse Resp B/P Pulse Ox O2 Delivery O2 Flow Rate FiO2 01/21/17 12:12 89 01/21/17 08:00 Nasal Cannula 2.0 01/21/17 07:49 98.2 19 123/62 98 Intake and Output 01/20/17 01/20/17 01/21/17 15:00 23:00 07:00 Intake Total 1515 ml 850 ml Balance 1515 ml 850 ml Exam Constitutional: alert, oriented Psych: no complaints Neck: non-tender, supple Respiratory: clear to auscultation, normal air movement Cardiovascular: nl pulses, regular rate and rhythm Gastrointestinal: non-tender, soft Musculoskeletal: nl extremities to inspection, nl gait and stance Extremities: normal pulses Neurological: nl speech, nl strength Skin: nl turgor, No rash or lesions Lymph: nl lymph nodes Results Result Diagram: 01/20/17 0640 01/20/17 0640 Results 24 hrs Laboratory Tests Test 01/21/17 11:54 Lab Scanned Report REFERENCE LAB Medications Medications Current Medications Ondansetron HCl (Zofran Inj) 4 mg Q6H PRN IV NAUSEA AND/OR VOMITING Last administered on 01/05/17 02:20; Admin Dose 4 MG; Start 12/20/16 at 07:30 Acetaminophen (Tylenol Tab) 650 mg Q6H PRN PO PAIN LEVEL 1-3 OR FEVER Last administered on 01/11/17 19:27; Admin Dose 650 MG; Start 12/20/16 at 07:30 Morphine Sulfate (morphine) 4 mg Q4H PRN IV SEVERE PAIN LEVEL 7-10 Last administered on 01/12/17 11:23; Admin Dose 4 MG; Start 12/20/16 at 07:30 Amlodipine Besylate (Norvasc) 5 mg DAILY PO Last administered on 01/21/17 08: 40; Admin Dose 5 MG; Start 12/21/16 at 09:00 Acetaminophen/ Hydrocodone Bitart ([place] (5/325)) 1 tab Q6H PRN PO PAIN LEVEL 7 -10 Last administered on 01/19/17 23:10; Admin Dose 1 TAB; Start 12/30/16 at 18: 00 Hydromorphone HCl (Dilaudid) 1 mg Q4H PRN IV SEVERE PAIN LEVEL 7-10 Last administered on 01/05/17 02:21; Admin Dose 1 MG; Start 01/02/17 at 17:45 Senna (Senokot) 1 tab BID PO Last administered on 01/21/17 08:39; Admin Dose 1 TAB; Start 01/03/17 at 21:00 Lorazepam (Ativan) 1 mg Q1H PRN IV Seizures Last administered on 01/12/17 14:31 ; Admin Dose 1 MG; Start 01/04/17 at 19:30 IV Flush (NS 10 ml) 10 ml PRN PRN IV FLUSH LINE; Start 01/04/17 at 20:00 Morphine Sulfate (morphine) 2 mg Q4H PRN IV pain Last administered on 06:23; Admin Dose 2 MG; Start 01/05/17 at 01:30 Hydralazine HCl 10 mg 10 mg Q2H PRN IV SBP >170 Last administered on 01/12/17 22:01; Admin Dose 10 MG; Start 01/06/17 at 03:00 Potassium Chloride/Dextrose (KCl/D5W) 1,015 ml @ 50 mls/hr [id number] IV Last administered on 01/20/17 22:00; Admin Dose 50 MLS/HR; Start 01/11/17 at 07:00 Miscellaneous Information 1 ea NOTE XX ; Start 01/15/17 at 10:30 Diphenhydramine HCl (Benadryl) 25 mg Q6H PRN IV SLEEP Last administered on 23:33; Admin Dose 25 MG; Start 01/15/17 at 13:30 Docusate Sodium (Colace) 100 mg BID PO Last administered on 01/21/17 08:39; Admin Dose 100 MG; Start 01/16/17 at 21:00 Furosemide (Lasix) 20 mg DAILY IV Last administered on 01/21/17 08:37; Admin Dose 20 MG; Start 01/18/17 at 09:00 Prednisone (Prednisone) 40 mg DAILY PO Last administered on 01/21/17 08:39; Admin Dose 40 MG; Start 01/19/17 at 09:00 Pantoprazole (Protonix Tab) 40 mg DAILY@06 PO Last administered on 01/21/17 06 :23; Admin Dose 40 MG; Start 01/21/17 at 06:00 Lorazepam (Ativan) 1 mg Q4H PRN PO agitation; Start 01/21/17 at 13:00 NARENDRA FINLEY NP Jan 21, 2017 13:59
[2017-01-23] MEDS ORDERED: ASPI325T32 PO (18:56)
== END 2017-01-21 17:12 | disposition home or self-care (01) | DRG 853 ==
LOC: E/R 15:44 → MS1 21:34 → TEL 01-04 06:10 → ICU 01-04 10:01 → TEL 01-16 17:26
PROVIDERS: ADMIT Internal Medicine; ATTEND Internal Medicine
PROC: 0DB68ZX Excision of Stomach, Via Natural or Artificial Opening Endoscopic, Diagnostic (ICD-10-PCS; 2016-12-27)
PROC: 0DB68ZX Excision of Stomach, Via Natural or Artificial Opening Endoscopic, Diagnostic (ICD-10-PCS; 2016-12-27)
PROC: 0DJD8ZZ Inspection of Lower Intestinal Tract, Via Natural or Artificial Opening Endoscopic (ICD-10-PCS; principal; 2016-12-27 19:00)
PROC: 0FB13ZX Excision of Right Lobe Liver, Percutaneous Approach, Diagnostic (ICD-10-PCS; 2016-12-30)
PROC: 02HV33Z Insertion of Infusion Device into Superior Vena Cava, Percutaneous Approach (ICD-10-PCS; 2017-01-04)
PROC: 30233N1 Transfusion of Nonautologous Red Blood Cells into Peripheral Vein, Percutaneous Approach (ICD-10-PCS; 2017-01-04)
PROC: 30233K1 Transfusion of Nonautologous Frozen Plasma into Peripheral Vein, Percutaneous Approach (ICD-10-PCS; 2017-01-04)
PROC: 04L33DZ Occlusion of Hepatic Artery with Intraluminal Device, Percutaneous Approach (ICD-10-PCS; 2017-01-05)
PROC: 5A1955Z Respiratory Ventilation, Greater than 96 Consecutive Hours (ICD-10-PCS; 2017-01-05)
PROC: 0BH17EZ Insertion of Endotracheal Airway into Trachea, Via Natural or Artificial Opening (ICD-10-PCS; 2017-01-05)
PROC: B40 Imaging, Lower Arteries, Plain Radiography (ICD-10-PCS; 2017-01-05)
PROC: 30233R1 Transfusion of Nonautologous Platelets into Peripheral Vein, Percutaneous Approach (ICD-10-PCS; 2017-01-05)
DX: A40.3 Sepsis due to Streptococcus pneumoniae (principal); N17.0 Acute kidney failure with tubular necrosis; J96.01 Acute respiratory failure with hypoxia; R65.21 Severe sepsis with septic shock; I81 Portal vein thrombosis; J18.9 Pneumonia, unspecified organism; G92 Toxic encephalopathy; I82.0 Budd-Chiari syndrome; K76.3 Infarction of liver; K75.0 Abscess of liver; D68.9 Coagulation defect, unspecified; C78.00 Secondary malignant neoplasm of unspecified lung; D68.59 Other primary thrombophilia; D62 Acute posthemorrhagic anemia; K83.0 Cholangitis; E87.1 Hypo-osmolality and hyponatremia; D80.3 Selective deficiency of immunoglobulin G [IgG] subclasses; K22.10 Ulcer of esophagus without bleeding; K76.89 Other specified diseases of liver; D25.9 Leiomyoma of uterus, unspecified; D50.9 Iron deficiency anemia, unspecified; E83.42 Hypomagnesemia; R56.9 Unspecified convulsions; C80.1 Malignant (primary) neoplasm, unspecified; R73.9 Hyperglycemia, unspecified; Q63.1 Lobulated, fused and horseshoe kidney
CPT/HCPCS: 31500; 36415; 36430; 36569; 36600; 71010; 71275; 72195; 74000; 74176; 74181; 74182; 76536; 76705; 76856; 76937; 76942; 80048; 80053; 80076; 80202; 81001; 81003; 82043; 82247; 82248; 82270; 82330; 82378; 82565; 82728; 82784; 82787; 82803; 82962; 83010; 83036; 83051; 83540; 83605; 83615; 83690; 83735; 84075; 84100; 84132; 84155; 84300; 84450; 84460; 84484; 84520; 85014; 85018; 85025; 85049; 85362; 85378; 85384; 85610; 85670; 85730; 86300; 86301; 86304; 86320; 86644; 86850; 86900; 86901; 86920; 86945; 87040; 87070; 87075; 87081; 87086; 87102; 87116; 88104; 88305; 88307; 88312; 88313; 88341; 88342; 92526; 92610; 93005; 93306; 93971; 94002; 94003; 94640; 94660; 94770; 96372; 96374; 96375; 97116; 97161; 97162; 97530; J1940; C1769; C1884; C1887; C1894; C9113; J0360; J0610; J0692; J0696; J1170; J1200; J1450; J1644; J1815; J1885; J1953; J2060; J2250; J2270; J2405; J2543; J2597; J2916; J2920; J3010; J3370; J3475; J3480; J7030; J7040; J7042; J7050; J7060; J7070; J7512; J7999; P9016; P9035; P9059; Q9967